=== PATIENT | male | born 1945 | race Caucasian/White ===

== ENCOUNTER 2023-02-07 07:31 | Emergency (ER) | payer MEDICARE, SELFPAY ==
[2023-02-07 07:36] VITALS: BP 161/91; PULSE 61; RESP 16; TEMP 36.4; O2SAT 99; BMI 23.0
--- NOTE | 2023-02-07 07:46 | ED.UPPEXIN1 ---
HPI - Extremity Injury (Upper) General Chief Complaint: Extremity Injury, Upper Stated Complaint: UPPER EXTREMITY INJURY LEFT HAND Time Seen by Provider: 02/07/23 07:42 Source: patient and family Mode of arrival: walk-in Limitations: physical limitation History of Present Illness HPI narrative: Is presenting with a left hand swelling and pain that started this morning. With no history of any injury although he was carrying some heavy objects yesterday No fever no chills no other concerns Related Data Home Medications Medication Instructions Recorded Confirmed carbidopa 25 mg-levodopa 100 mg 1.5 tab PO .4 times per day 02/07/23 02/07/23 tablet glipizide 5 mg tablet 5 mg PO DAILY 02/07/23 02/07/23 meloxicam 7.5 mg tablet 7.5 mg PO DAILY 02/07/23 02/07/23 metformin 500 mg tablet,extended 500 mg PO BID 02/07/23 02/07/23 release 24 hr metoprolol succinate 50 mg 50 mg PO DAILY 02/07/23 02/07/23 tablet,extended release 24 hr ramipril 1.25 mg capsule 1.25 mg PO DAILY 02/07/23 02/07/23 rasagiline 1 mg tablet 1 mg PO DAILY 02/07/23 02/07/23 simvastatin 40 mg tablet 40 mg PO .QHS 02/07/23 02/07/23 Previous Rx's Medication Instructions Recorded cephalexin 500 mg capsule 500 mg PO Q8H 5 days #15 caps 02/07/23 Allergies Allergy/AdvReac Type Severity Reaction Status Date / Time No Known Drug Allergies Allergy Verified 02/07/23 07:38 Review of Systems ROS Status of ROS 10 or more systems reviewed and unremarkable except as noted in history and below PFSH PFS Social History Smoking status: Never smoker Exam Narrative Exam Narrative: Nurses notes and vital signs reviewed and patient is not hypoxic. General: Well-appearing and in no apparent distress. Skin: Warm, dry, no pallor noted. No rash. Head: Normocephalic, atraumatic. Neck: Supple, non-tender. Eye: Pupils are equal, round and EOMI. No scleral icterus. Ears, Nose, Mouth, and Throat: TM are clear, no nasal mucosal hypertrophy. Oral mucosa is moist, no posterior oropharynx erythema, uvula is mid-line Cardiovascular: Regular Rate and Rhythm without murmur, gallop or rub. Respiratory: No accessory muscle use or respiratory distress. Lungs are clear to auscultation, no wheezing, rales or rhonchi Chest Wall: no tenderness Back: No midline thoracic or lumbar vertebral tenderness. No CVA tenderness Musculoskeletal: normal ROM, no calf or popliteal tenderness, no lower extremity edema/swelling,Left hand swelling noted on the dorsum with an area extending between the 1st 2nd and 3rd with a couple small scratches at the top , no fluctuation or abscess, there is ecchymosis there is no hotness GI: Abdomen is soft, non-distended. Normal bowel sounds. No masses appreciated. No tenderness to palpation. No rebound, guarding, or rigidity noted. Neurological: A&O x4. No cranial nerve dysfunction observed. No truncal ataxia. Moves all extremities. Sensation intact. Psychiatric: Cooperative and interactive. Normal mood and affect. Constitutional Vital Signs, click to edit/add: Last Vital Signs Temp 97.5 F L 02/07/23 07:36 Pulse 66 02/07/23 07:55 Resp 16 02/07/23 07:36 BP 161/91 H 02/07/23 07:36 Pulse Ox 99 02/07/23 07:36 O2 Del Method Room Air 02/07/23 07:36 Course Vital Signs Vital signs: Vital Signs Temperature 97.5 F L 02/07/23 07:36 Pulse Rate 61 02/07/23 07:36 Respiratory Rate 16 02/07/23 07:36 Blood Pressure 161/91 H 02/07/23 07:36 Pulse Oximetry 99 02/07/23 07:36 Oxygen Delivery Method Room Air 02/07/23 07:36 Temperature 97.5 F L 02/07/23 07:36 Pulse Rate 66 02/07/23 07:55 Respiratory Rate 16 02/07/23 07:36 Blood Pressure 161/91 H 02/07/23 07:36 Pulse Oximetry 99 02/07/23 07:36 Oxygen Delivery Method Room Air 02/07/23 07:36 MDM - Extremity Injury (Upper) MDM Narrative Medical decision making narrative: xray of the patient left hand showed no acute pathology regarding the bone but the patient have swelling of the soft tissue pt presentation could be secondary to cellulitis he'll be treated with Keflex as well as Toby wrap and monitoring his symptoms The patient is to followup with primary care physician in next 2-3 days or to return to the emergency department should any of the signs or symptoms worsen or new symptoms develop. The patient agrees with the following Diagnosis and Treatment plan and the patient will be discharged home. Discharge Plan Discharge Chief Complaint: Extremity Injury, Upper Clinical Impression: Cellulitis of hand Patient Disposition: Home, Self-Care Time of Disposition Decision: 08:55 Condition: Good Prescriptions / Home Meds: New cephalexin 500 mg capsule 500 mg PO Q8H 5 Days Qty: 15 0RF No Action carbidopa-levodopa 25-100 mg tablet 1.5 tab PO .4 times per day glipizide 5 mg tablet 5 mg PO DAILY meloxicam 7.5 mg tablet 7.5 mg PO DAILY metformin 500 mg tablet extended release 24 hr 500 mg PO BID metoprolol succinate 50 mg tablet extended release 24 hr 50 mg PO DAILY ramipril 1.25 mg capsule 1.25 mg PO DAILY rasagiline 1 mg tablet 1 mg PO DAILY simvastatin 40 mg tablet 40 mg PO .QHS Instructions: Cellulitis (ED) Additional Instructions: toby wrap applied to the left hand , elevation and rest Stand Alone Forms: Portal Instructions Referrals: Nathan Hartman MD [Primary Care Provider] - 1 week Discharge Date/Time: 02/07/23 09:06
[2023-02-07 07:55] VITALS: PULSE 66
[2023-02-07] MEDS: ACETAMINOPHEN 325 MG TABLET 650 MG PO (08:03)
--- NOTE | 2023-02-07 08:03 | XR_ITS ---
The [address] [address] Patient Name: TASHA NEWBERRY MRN: [id number] date: 1945 Sex: M Assigned Patient Location: ER Current Patient Location: ED.MAIN Accession/Order Number: [id number] Exam Date: 02/07/2023 07:55 Report Date: 02/07/2023 08:10 At the request of: CONNIE BERMUDEZ Procedure: XR hand LT min 3V PROCEDURE: XR hand LT min 3V HISTORY: swelling , acute left and bruising; no known injury COMPARISON: None. FINDINGS: BONES:Mild degenerative changes of the first carpal-metacarpal joint and the distal interphalangeal joints of the second third digits. No fracture, dislocation, bone lesion. SOFT TISSUES:Mild dorsal soft tissue swelling. No radiopaque foreign body. EFFUSION:None visible. OTHER: Negative. XR/XR hand LT min 3V IMPRESSION: 1. No acute or suspicious bone abnormality. Mild degenerative changes. 2. Mild soft tissue swelling; nonspecific. Electronically authenticated by: AYAZ NICOLE Date: 02/07/2023 08:10
== END 2023-02-07 09:06 | disposition home or self-care (01) ==
PROVIDERS: Emergency Provider Emergency Medicine; PCP Family Medicine
DX: L03.114 Cellulitis of left upper limb (principal); Z79.84 Long term (current) use of oral hypoglycemic drugs; Z79.899 Other long term (current) drug therapy
CPT/HCPCS: 73130; 99283

== ENCOUNTER 2023-06-24 08:57 | Outpatient (OUT) | payer MEDICARE, SELFPAY ==
[2023-06-24 10:14] LABS: Estimated Average Glucose 200 mg/dL; Glycohemoglobin A1C 8.6 % (4.5-6.2)
== END 2023-06-24 08:58 | disposition home or self-care (01) ==
LOC: LAB 08:58
PROVIDERS: PCP Family Medicine; Visit Provider Family Medicine
DX: E11.65 Type 2 diabetes mellitus with hyperglycemia (principal)
CPT/HCPCS: 36415; 83036

== ENCOUNTER 2023-07-18 11:55 | Emergency (ER) | payer MEDICARE, SELFPAY ==
[2023-07-18 12:20] VITALS: BP 138/76; PULSE 73; RESP 20; TEMP 36.4; O2SAT 98; BMI 24.1
--- NOTE | 2023-07-18 12:51 | CT_ITS ---
The [address] [address] Patient Name: TASHA NEWBERRY MRN: [id number] date: 1945 Sex: M Assigned Patient Location: ER Current Patient Location: ER Accession/Order Number: [id number] Exam Date: 07/18/2023 13:04 Report Date: 07/18/2023 13:31 At the request of: PRADEEP HOUGH Procedure: CT head/brain wo con EXAM: CT head/brain wo con HISTORY: fall, hit head with abrasion above left eye COMPARISON: CT cervical spine performed contemporaneously reported separately, MR brain 06/27/2016. TECHNIQUE: Axial noncontrast CT imaging of the head was performed with coronal and sagittal reformats. This CT exam was performed using one or more of the following dose reduction techniques: Automated exposure control, adjustment of the MA and/or kV according to patient size, or use of iterative reconstruction technique. FINDINGS: Calvarium/skull base: No substantial soft tissue abnormality is present involving the left paravertebral soft tissues. The known abrasion is not well visualized by CT. No evidence of acute fracture or destructive lesion. Mastoids and middle ears demonstrate no substantial mucosal disease. Bilateral bad river band ocular lens replacements. Paranasal sinuses: No air fluid levels. Brain: No acute intracranial hemorrhage. No acute large vascular territory infarct. No mass lesion or mass effect. No hydrocephalus. CT/CT head/brain wo con IMPRESSION: No acute intracranial process. Electronically authenticated by: ANDREA BARRERA Date: 07/18/2023 13:31
--- NOTE | 2023-07-18 12:51 | XR_ITS ---
The [address] [address] Patient Name: TASHA NEWBERRY MRN: [id number] date: 1945 Sex: M Assigned Patient Location: ER Current Patient Location: ER Accession/Order Number: [id number] Exam Date: 07/18/2023 13:04 Report Date: 07/18/2023 13:50 At the request of: PRADEEP HOUGH Procedure: XR knee LT 3V IMAGES REVIEWED: XR knee LT 3V COMPARISON: 12/20/2021. CLINICAL INDICATION: fall FINDINGS/IMPRESSION: No evidence of acute osseous abnormality of the left knee. No effusion. Minimal degenerative change. Peripheral arterial disease. Electronically authenticated by: ALEX HERNANDEZ Date: 07/18/2023 13:50
--- NOTE | 2023-07-18 12:52 | ED.FALL1 ---
HPI - Fall General Chief Complaint: Fall Stated Complaint: FELL Time Seen by Provider: 07/18/23 12:47 Source: patient Mode of arrival: walk-in Limitations: no limitations History of Present Illness HPI Narrative: [age] old male presents for injury to the left side of his face and his left knee. He fell exercising when he lost his balance. No syncope and he did not lose consciousness. No chest pain shortness breath or abdominal pain. No injury to his arms or right leg. He points to the left anterior knee to indicate area of pain there and he has abrasions at his left eye as well. This just happened before coming into the emergency department. Related Data Home Medications Medication Instructions Recorded Confirmed carbidopa 25 mg-levodopa 100 mg 1.5 tab PO .4 times per day 02/07/23 07/18/23 tablet glipizide 5 mg tablet 5 mg PO DAILY 02/07/23 07/18/23 meloxicam 7.5 mg tablet 7.5 mg PO DAILY 02/07/23 07/18/23 metformin 500 mg tablet,extended 500 mg PO BID 02/07/23 07/18/23 release 24 hr metoprolol succinate 50 mg 25 mg PO DAILY 02/07/23 07/18/23 tablet,extended release 24 hr ramipril 1.25 mg capsule 1.25 mg PO DAILY 02/07/23 07/18/23 rasagiline 1 mg tablet 1 mg PO DAILY 02/07/23 07/18/23 simvastatin 40 mg tablet 40 mg PO .QHS 02/07/23 07/18/23 Previous Rx's Medication Instructions Recorded cephalexin 500 mg capsule 500 mg PO Q8H 5 days #15 caps 02/07/23 Allergies Allergy/AdvReac Type Severity Reaction Status Date / Time No Known Drug Allergies Allergy Verified 07/18/23 12:18 Review of Systems ROS Narrative A ten point review of systems is negative except as noted above. PFSH PFSH Social History Smoking status: Never smoker Exam Narrative Exam Narrative: Nurses note and vital signs reviewed and patient is not hypoxic. General: The patient appears well and in no apparent distress. Patient is resting comfortably on cart. Skin: Warm, dry, no pallor noted. There is no rash noted. Head: Normocephalic, abrasions present just lateral to the left eye Eye: Normal conjunctiva, no drainage Ears, Nose, Mouth, and Throat: oral mucosa is moist. Nares patent. Cardiovascular: not tachycardic Respiratory: Patient is in no distress, no accessory muscle use, lungs are clear to auscultation, no wheezing, rales or rhonchi Back: non-tender GI: nontender Musculoskeletal: left knee has abrasions. No tenderness in the right leg or either arm. Left hip and ankle are nontender Neurological: A&O, normal speech Psychiatric: Cooperative Constitutional Vital Signs, click to edit/add: Last Vital Signs Temp 97.6 F 07/18/23 12:20 Pulse 73 07/18/23 12:20 Resp 20 07/18/23 12:20 BP 138/76 07/18/23 12:20 Pulse Ox 98 07/18/23 12:20 O2 Del Method Room Air 07/18/23 12:20 Course Vital Signs Vital signs: Vital Signs Temperature 97.6 F 07/18/23 12:20 Pulse Rate 73 07/18/23 12:20 Respiratory Rate 20 07/18/23 12:20 Blood Pressure 138/76 07/18/23 12:20 Pulse Oximetry 98 07/18/23 12:20 Oxygen Delivery Method Room Air 07/18/23 12:20 Temperature 97.6 F 07/18/23 12:20 Pulse Rate 73 07/18/23 12:20 Respiratory Rate 20 07/18/23 12:20 Blood Pressure 138/76 07/18/23 12:20 Pulse Oximetry 98 07/18/23 12:20 Oxygen Delivery Method Room Air 07/18/23 12:20 MDM - Fall MDM Narrative Medical decision making narrative: CAT scans and x-rays are all negative and he is able to be discharged home. Findings are discussed with the patient and his . Differential Diagnosis Differential diagnosis: Likely other (fall, intracranial hemorrhage, knee fracture) Imaging Data CT brain, CT C-spine, knee x-ray: Radiologist's impression: Procedure: CT cervical spine wo con EXAM: CT cervical spine wo con HISTORY: fall COMPARISON: None. TECHNIQUE: Contiguous transaxial images obtained from skullbase through cervical spine without administration of intravenous contrast. Coronal and sagittal reformations were obtained. Dose reduction: mA and/or kV are were adjusted by automated exposure control software based upon patients height and weight. FINDINGS: There is no prevertebral soft tissue swelling or acute cervical spine fracture. There is osteopenia. There is multilevel degenerative disc disease of the cervical spine, most pronounced at C5-6. There is minimal retrolisthesis of C3 on C4 and C4 on C5. There is mild levocurvature of the cervical spine. There is multilevel and bilateral uncovertebral joint osteoarthritis, most pronounced from C3-4 through C6-7. There is also multilevel and bilateral facet joint osteoarthritis. Uncovertebral and facet joint osteoarthritis contribute to neural foraminal narrowing that is most pronounced on the right at C4-5 and bilaterally at C5-6. 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 There are several small radiolucent foci within the C4 and C5 vertebral bodies, nonspecific. There is mild carotid artery atherosclerosis. IMPRESSION: 1. No acute cervical spine fracture. 2. Multilevel degenerative disc disease of the cervical spine that is most pronounced at C5-6 as described. 3. Osteopenia. Additionally, there are several small radiolucent foci within the C4 and C5 vertebral bodies, nonspecific. They may be related to degenerative disc disease (including endplate cysts) or patient's underlying osteopenia. However, other etiologies cannot be entirely excluded given patient's age. Correlate with patient history. 4. Mild carotid artery atherosclerosis. Electronically authenticated by: YOBANY MARTIN Date: 07/18/2023 13:46 Procedure: CT head/brain wo con EXAM: CT head/brain wo con HISTORY: fall, hit head with abrasion above left eye COMPARISON: CT cervical spine performed contemporaneously reported separately, MR brain 06/27/2016. TECHNIQUE: Axial noncontrast CT imaging of the head was performed with coronal and sagittal reformats. This CT exam was performed using one or more of the following dose reduction techniques: Automated exposure control, adjustment of the MA and/or kV according to patient size, or use of iterative reconstruction technique. FINDINGS: Calvarium/skull base: No substantial soft tissue abnormality is present involving the left paravertebral soft tissues. The known abrasion is not well visualized by CT. No evidence of acute fracture or destructive lesion. Mastoids and middle ears demonstrate no substantial mucosal disease. Bilateral andreafski ocular lens replacements. Paranasal sinuses: No air fluid levels. Brain: No acute intracranial hemorrhage. No acute large vascular territory infarct. No mass lesion or mass effect. No hydrocephalus. IMPRESSION: No acute intracranial process. Electronically authenticated by: ANDREA BARRERA Procedure: CT cervical spine wo con EXAM: CT cervical spine wo con HISTORY: fall COMPARISON: None. TECHNIQUE: Contiguous transaxial images obtained from skullbase through cervical spine without administration of intravenous contrast. Coronal and sagittal reformations were obtained. Dose reduction: mA and/or kV are were adjusted by automated exposure control software based upon patients height and weight. FINDINGS: There is no prevertebral soft tissue swelling or acute cervical spine fracture. There is osteopenia. There is multilevel degenerative disc disease of the cervical spine, most pronounced at C5-6. There is minimal retrolisthesis of C3 on C4 and C4 on C5. There is mild levocurvature of the cervical spine. There is multilevel and bilateral uncovertebral joint osteoarthritis, most pronounced from C3-4 through C6-7. There is also multilevel and bilateral facet joint osteoarthritis. Uncovertebral and facet joint osteoarthritis contribute to neural foraminal narrowing that is most pronounced on the right at C4-5 and bilaterally at C5-6. 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 There are several small radiolucent foci within the C4 and C5 vertebral bodies, nonspecific. There is mild carotid artery atherosclerosis. IMPRESSION: 1. No acute cervical spine fracture. 2. Multilevel degenerative disc disease of the cervical spine that is most pronounced at C5-6 as described. 3. Osteopenia. Additionally, there are several small radiolucent foci within the C4 and C5 vertebral bodies, nonspecific. They may be related to degenerative disc disease (including endplate cysts) or patient's underlying osteopenia. However, other etiologies cannot be entirely excluded given patient's age. Correlate with patient history. 4. Mild carotid artery atherosclerosis. Electronically authenticated by: YOBANY MARTIN Date: 07/18/2023 13:46 Discharge Plan Discharge Chief Complaint: Fall Clinical Impression: Fall Patient Disposition: Home, Self-Care Time of Disposition Decision: 14:01 Condition: Good Mode of Transportation: Private Vehicle Prescriptions / Home Meds: No Action carbidopa-levodopa 25-100 mg tablet 1.5 tab PO .4 times per day glipizide 5 mg tablet 5 mg PO DAILY meloxicam 7.5 mg tablet 7.5 mg PO DAILY metformin 500 mg tablet extended release 24 hr 500 mg PO BID metoprolol succinate 50 mg tablet extended release 24 hr 25 mg PO DAILY ramipril 1.25 mg capsule 1.25 mg PO DAILY rasagiline 1 mg tablet 1 mg PO DAILY simvastatin 40 mg tablet 40 mg PO .QHS cephalexin 500 mg capsule 500 mg PO Q8H 5 Days Qty: 15 0RF Instructions: Fall Prevention for Older Adults (ED) Stand Alone Forms: Portal Instructions Referrals: Nathan Hartman MD [Primary Care Provider] - 1 week
== END 2023-07-18 14:20 | disposition home or self-care (01) ==
PROVIDERS: Emergency Provider Emergency Medicine; PCP Family Medicine
DX: Z04.3 Encounter for examination and observation following other accident (principal); S09.93XA Unspecified injury of face, initial encounter; S89.92XA Unspecified injury of left lower leg, initial encounter; W19.XXXA Unspecified fall, initial encounter; Z79.84 Long term (current) use of oral hypoglycemic drugs; M50.322 Other cervical disc degeneration at C5-C6 level; M85.88 Other specified disorders of bone density and structure, other site
CPT/HCPCS: 70450; 72125; 73562; 99284

== ENCOUNTER 2023-09-13 09:05 | Outpatient (OUT) | payer MEDICARE, SELFPAY ==
--- NOTE | 2023-09-13 09:11 | US_ITS ---
The [address] [address] Patient Name: TASHA NEWBERRY MRN: [id number] date: 1945 Sex: M Assigned Patient Location: US Current Patient Location: US Accession/Order Number: [id number] Exam Date: 09/13/2023 09:12 Report Date: 09/13/2023 10:05 At the request of: LAINE BOLTON Procedure: US right upper quadrant EXAM: US right upper quadrant HISTORY: . epigastric abdominal pain R10.13 . COMPARISON: None. TECHNIQUE: Grayscale and color imaging was performed FINDINGS: The pancreas appears normal. Scanning of the liver demonstrates a liver to be normal in size. There is mild increased echogenicity of liver. Color-flow is noted in the portal and hepatic veins. Common bile duct measures 2 mm. The gallbladder appears normal with no stones or sludge identified. Right kidney measures 10.2 x 6.6 x 5.7 cm. There is a 7 mm nonobstructing calculus involving the midpole of the right kidney. No solid renal cortical masses or hydronephrosis is noted. No fluid is noted in the right upper quadrant. US/US right upper quadrant IMPRESSION: 1. Slight increased echogenicity of liver consistent with fatty infiltration of the liver. 2. 7 mm nonobstructing right renal calculus. No hydronephrosis. 3. The remainder the right upper quadrant was unremarkable. Electronically authenticated by: NANO ROONEY Date: 09/13/2023 10:05
--- NOTE | 2023-09-13 09:16 | FL_ITS ---
The [address] [address] Patient Name: TASHA NEWBERRY MRN: [id number] date: 1945 Sex: M Assigned Patient Location: US Current Patient Location: US Accession/Order Number: [id number] Exam Date: 09/13/2023 09:45 Report Date: 09/13/2023 11:01 At the request of: LAINE BOLTON Procedure: FL upper GI w air PROCEDURE: FL upper GI w air, FL cineradiography COMPARISON: None. HISTORY: Epigastric Abdominal Pain R10.13 TECHNIQUE: An air contrast upper gastrointestinal series was performed in the usual manner. Standard level fluoroscopic mode of operation utilized. FINDINGS: ESOPHAGUS: Trace amount gastroesophageal reflux. Mild tertiary waves and decreased peristalsis. No visible obstruction, dilatation, or hernia STOMACH: No obstruction, mass, or ulceration. Normal motility. DUODENUM:No ulceration or diverticulum. OTHER: Negative. FL/FL upper GI w air IMPRESSION: 1. Mild decreased peristalsis and tertiary waves of the esophagus; likely age related. 2. Trace amount of gastroesophageal reflux. 3. Unremarkable stomach. Electronically authenticated by: AYAZ NICOLE Date: 09/13/2023 11:01
--- NOTE | 2023-09-13 09:16 | FL_ITS ---
The [address] [address] Patient Name: TASHA NEWBERRY MRN: [id number] date: 1945 Sex: M Assigned Patient Location: US Current Patient Location: US Accession/Order Number: [id number] Exam Date: 09/13/2023 09:45 Report Date: 09/13/2023 11:01 At the request of: LAINE BOLTON Procedure: FL cineradiography PROCEDURE: FL upper GI w air, FL cineradiography COMPARISON: None. HISTORY: Epigastric Abdominal Pain R10.13 TECHNIQUE: An air contrast upper gastrointestinal series was performed in the usual manner. Standard level fluoroscopic mode of operation utilized. FINDINGS: ESOPHAGUS: Trace amount gastroesophageal reflux. Mild tertiary waves and decreased peristalsis. No visible obstruction, dilatation, or hernia STOMACH: No obstruction, mass, or ulceration. Normal motility. DUODENUM:No ulceration or diverticulum. OTHER: Negative. FL/FL cineradiography IMPRESSION: 1. Mild decreased peristalsis and tertiary waves of the esophagus; likely age related. 2. Trace amount of gastroesophageal reflux. 3. Unremarkable stomach. Electronically authenticated by: AYAZ NICOLE Date: 09/13/2023 11:01
--- OUTSIDE RECORDS SUMMARY | 2023-09-13 09:17 | XMS_ITS | CCD ---
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 Name Role Phone Nathan Bolton Primary Care Provider DONALD ALBERTS Referring Unavailable NATHAN BOLTON Primary Care Unavailable Nathan Bolton Primary Care Provider CASANDRA ., DR NIKHIL Ross Admitting Unavailable GUAJARDO ., DR NIKHIL Ross Attending Unavailable REY .DANIEL Consulting Unavailable NADERER, DR NATHAN Alonso Primary Care Unavailable GUAJARDO ., DR NIKHIL Ross Admitting Unavailable GUAJARDO ., DR NIKHIL Ross Consulting Unavailable GUAJARDO ., DR NIKHIL Ross Attending Unavailable NADEREGideon, DR NATHAN Alonso Primary Care Unavailable NICA HOUSE Consulting Unavailable GUAJARDO ., DR NIKHIL Ross Admitting Unavailable GUAJARDO ., DR NIKHIL Ross Consulting Unavailable NADROBERTA, DR NATHAN Alonso Primary Care Unavailable GUAJARDO ., DR NIKHIL Ross Attending Unavailable SANIYA GARZON Consulting Unavailable SANIYA GARZON Attending Unavailable NADROBERTA, DR NATHAN Alonso Primary Care Unavailable SANIYA GARZON Admitting Unavailable SANIYA GARZON Consulting Unavailable SANIYA GARZON Attending Unavailable SANIYA GARZON Admitting Unavailable NADROBERTA, DR NATHAN Alonso Primary Care Unavailable MISC, DR NOBLE Admitting Unavailable MISC, DR NOBLE Attending Unavailable NADROBERTA, DR NATHAN Alonso Primary Care Unavailable GUAJARDO ., DR NIKHIL Ross Admitting Unavailable GUAJARDO ., DR NIKHIL Ross Consulting Unavailable GUAJARDO ., DR NIKHIL Ross Attending Unavailable HOANG, DR NATHAN Alonso Primary Care Unavailable HOANG, DR NATHAN Alonso Primary Care Unavailable HOANG, DR NATHAN Alonso Consulting Unavailable NADEREGideon, DR NATHAN Alonso Attending Unavailable NADERER, DR NATHAN Alonso Admitting Unavailable HOANG, DR NATHAN Alonso Consulting Unavailable HOANG, DR NATHAN Alonso Attending Unavailable HOANG, DR NATHAN Alonso Admitting Unavailable HOANG, DR NATHAN Alonso Primary Care Unavailable [facility], DR NOBLE Attending Unavailable ALISE, DR NOBLE Admitting Unavailable HOANG, DR NATHAN Alonso Primary Care Unavailable SADAF ., JOANNE Attending Unavailable SADAF ., JOANNE Admitting Unavailable BONNIE, DR AYAZ Meneses Consulting Unavailable HOANG, DR NATHAN Alonso Primary Care Unavailable SADAF ., JOANNE Consulting Unavailable DONALD ALBERTS Attending Unavailable NATHAN BOLTON Primary Care Unavailable HERIBERTO ALBERTSAL Chanda Referring Unavailable DONALD ALBERTS Attending Unavailable NATHAN BOLTON Primary Care Unavailable Nathan Bolton MD Primary Care Provider AYAZ SANTO Attending Unavailable NATHAN BOLTON Attending Unavailable Medications Current Medications Medication Drug Class(es) Dates Sig (Normalized) Sig (Original) 8 hr acetaminophen 650 mg extended release oral tablet (3 sources) take 1 tablet by mouth every eight hours as needed for pain acetaminophen (Tylenol 8 Hour) 650 MG ER tablet Take 650 mg by mouth every 8 (eight) hours if needed for mild pain. Do not crush, chew, or split. 0 Active aspirin 81 mg delayed release oral tablet (10 sources) Platelet Aggregation Inhibitor, Nonsteroidal Anti-inflammatory Drug take 1 tablet by mouth in the morning aspirin 81 MG EC tablet Take 81 mg by mouth in the morning. 0 Active Comment on above: Take 81 mg by mouth once daily. carbidopa 25 mg / levodopa 100 mg oral tablet (12 sources) Aromatic Amino Acid Decarboxylation Inhibitor, Aromatic Amino Acid Start: 12-05-2022 End: 02-20-2024 take 1.5 tablets by mouth four times daily carbidopa-levodopa (SINEMET) 25-100 mg per tablet Indications: PD (Parkinson's disease) (HCC) Take 1.5 tablets by mouth four times daily. 540 tablet 3 02/20/2023 02/20/2024 Active Start: 02-19-2022 End: 03-09-2023 take 1.5 tablets by mouth three times daily carbidopa-levodopa (SINEMET) 25-100 mg per tablet Indications: PD (Parkinson's disease) (HCC) Take 1.5 tablets by mouth three times daily. 405 tablet 1 09/10/2022 12/05/2022 Discontinued carbidopa-levodo pa (Parcopa) 25-100 MG disintegrating tablet Take 1 tablet by mouth in the morning and 1 tablet at noon and 1 tablet in the evening and 1 tablet before bedtime. 0 Active Comment on above: Take 1.5 tablets by mouth three times daily. Take 1.5 tablets by mouth four times daily. glipiZIDE 10 mg oral tablet (6 sources) Sulfonylurea Start: 07-01-2023 take 1 tablet by mouth in the morning glipiZIDE (Glucotrol) 10 MG tablet Indications: Type 2 diabetes mellitus with hyperglycemia, without long-term current use of insulin ([facility]) Take 1 tablet (10 mg) by mouth in the morning. 90 tablet 3 07/01/2023 Active take 1 tablet by mouth once katheryn y glipiZIDE (GLUCOTROL XL) 5 mg 24 hr tablet Take 5 mg by mouth once daily. 0 Active Comment on above: Take 5 mg by mouth o nce daily. Magnesium (10 sources) magnesium 250 MG tablet Take by mouth. 0 Active take 1 tablet by mouth once katheryn y Magnesium 250 mg tab Take 250 mg by mouth once daily. 0 Active Comment on above: Take 250 mg by mouth once daily. meloxicam 7.5 mg oral tablet (10 sources) Nonsteroidal Anti-inflammatory Drug Start: 07-16-2023 End: 07-15-2024 take 1 tablet by mouth in the morning meloxicam (Mobic) 7.5 MG tablet Indications: DDD (degenerative disc disease), lumbar Take 1 tablet (7.5 mg) by mouth in the morning. 90 tablet 3 07/16/2023 07/15/2024 Active Start: 03-03-2019 take 1 tablet by esvin th once daily meloxicam (MOBIC) 7.5 mg tablet Take 7.5 mg by mouth once daily. 0 03/03/2019 Active Comment on above: Take 7.5 mg by mouth once daily. Multiple Vitamin (multivitamin) tablet (3 sources) take 1 tablet by mouth in the morning Multiple Vitamin (multivitamin) tablet Take 1 tablet by mouth in the morning. 0 Active omeprazole 40 mg delayed release oral capsule (2 sources) Proton Pump Inhibitor Start: 09-10-2023 take 1 capsule by mouth in the morning omeprazole (PriLOSEC) [address] capsule Indications: Epigastric abdominal pain Take 1 capsule (40 mg) by mouth in the morning and in the evening Do not crush or chew. 60 capsule 2 09/10/2023 Active Start: 09-10-2023 take 1 capsule by mo uth in the morning omeprazole (PriLOSEC) [address] capsule Indications: Epigastric abdominal pain Take 1 capsule (40 mg) by mouth in the morning and in the evening Do not crush or chew. 60 capsule 2 09/10/2023 Active vitamin e 180 mg oral capsule (10 sources) take 1 capsule by mo uth in the morning vitamin E 180 MG (400 UNIT) capsule Take 180 mg by mouth in the morning. 0 Active take 1 capsule by mouth once arcenio ly Vitamin E, dl, acetate, (VITAMIN E) 400 unit capsule Take 400 Units by mouth once daily. 0 Active Comment on above: Take 400 Units by mo uth once daily. Completed/Discontinued Medications Medication Drug Class(es) Dates Sig (Normalized) Sig (Original) atropine sulfate 10 mg/ml ophthalmic solution (1 source) Anticholinergic, Cholinergic Muscarinic Antagonist Start: 03-20-2023 take 1 drop(s) under the tongue once daily as needed atropine 1 % ophthalmic solution Indications: Sialorrhea 1(one) drop sublingual as needed daily for excessive drooling 15 mL 2 03/20/2023 Active Comment on above: 1(one) drop sublingu al as needed daily for excessive drooling 24 hr metFORMIN hydrochloride 500 mg extended release oral tablet (10 sources) Biguanide Start: 03-16-2019 metFORMIN ER (GLUCOPHAGE XR) 500 mg 24 hr tablet 500 mg once daily. 0 03/16/2019 Active metFORMIN, OSM, (Fortamet) 500 MG 24 hr tablet Take 500 mg by mouth in the morning and 500 mg at noon and 500 mg in the evening and 500 mg before bedtime. Do not crush, chew, or split. 2 in the AM, 2 at night. 0 Active Comment on above: 500 mg once daily. 24 hr metoprolol succinate 50 mg extended release oral tablet (10 sources) beta-Adrenergic Feng Start: 02-17-2019 metoprolol succinate ER (TOPROL XL) 50 mg 24 hr tablet 50 mg once daily. 0 02/17/2019 Active take 0.5 tablet by m outh every twenty-four hours metoprolol succinate XL (Toprol-XL) 50 M G 24 hr tablet Take 50 mg by mouth Do not crush or chew. 1/2 tab 0 Active Comment on above: 50 mg once daily. multivit-minerals/FA /lycopene (ONE-A-DAY MEN'S ORAL) (7 sources) multivit-mineral s/F A/lycopene (ONE-A-DAY MEN'S ORAL) Take by mouth once daily. 0 Active Comment on above: Take by mouth once d aily. ramipril 1.25 mg oral capsule (10 sources) Angiotensin Converting Enzyme Inhibitor Start: 02-17-2019 ramipril (ALTACE) 1.25 mg capsule 1.25 mg once daily. 0 02/17/2019 Active Comment on above: 1.25 mg once daily. rasagiline 1 mg oral tablet (11 sources) Monoamine Oxidase Inhibitor Start: 03-06-2023 take 1 tablet by mouth once daily rasagiline (AZILECT) 1 mg tab Take 1 tablet by mouth once daily. 90 tablet 3 03/06/2023 Active Start: 02-19-2022 End: 09-10-2022 take 1 tablet by mouth once daily rasagiline (AZILECT) 1 mg tab Take 1 tablet by mouth once daily. 90 tablet 1 09/10/2022 Active take 2 tablets by mo uth in the morning rasagiline (Azilect) 0.5 MG tablet Take 1 mg by mouth in the morning. 0 Active Comment on above: Take 1 tablet by esvin th once daily. simvastatin 40 mg oral tablet (10 sources) HMG-CoA Reductase Inhibitor Start: 02-17-2019 simvastatin (ZOCOR) 40 mg tablet 40 mg daily at bedtime. 0 02/17/2019 Active Comment on above: 40 mg daily at bedti me. Problems Active Problems Problem Classification Problem Date Documented Date Episodic/Chronic Abdominal pain (4 sources) Epigastric pain; Translations: [Epigastric pain] Onset: 09-10-2023 09-10-2023 Episodic Cataract (8 sources) Age-related nuclear cataract, right eye; Translations: [Age-related nuclear cataract, left eye] Onset: 08-30-2022 Chronic Diabetes mellitus with complications (7 sources) Type 2 diabetes mellitus with hyperglycemia; Translations: [Type 2 diabetes mellitus] Onset: 11-26-2022 Chronic Diabetes mellitus without complication (1 source) Type 2 diabetes mellitus without complications; Translations: [TYPE 2 DM WITHOUT COMPLICATIONS] Onset: 08-31-2022 Chronic Disorders of lipid metabolism (5 sources) Hyperlipidemia, unspecified; Translations: [Pure hypercholesterolemia, unspecified] Onset: 08-31-2022 09-10-2023 Chronic E Codes: Fall (1 source) Unspecified fall, initial encounter; Translations: [UNSPECIFIED FALL INITIAL ENCOUNTER] Onset: 12-15-2022 Episodic Essential hypertension (4 sources) Essential (primary) hypertension; Translations: [Benign essential hypertension] Onset: 11-29-2022 09-10-2023 Chronic Genitourinary symptoms and ill-defined conditions (3 sources) Lefty hematuria; Translations: [Gross hematuria] Onset: 09-10-2023 09-10-2023 Episodic Osteoarthritis (4 sources) Unspecified osteoarthritis, unspecified site; Translations: [Degenerative joint disease involving multiple joints] Onset: 08-31-2022 09-10-2023 Chronic Other acquired deformities (1 source) Other forms of scoliosis, lumbar region; Translations: [OTHER FORMS SCOLIOSIS LUMBAR REGION] Onset: 05-18-2022 Chronic Other aftercare (1 source) Other 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 operator (current) drug therapy; Translations: [OTH RELIABILITY TECHNOLOGIST CURRENT DRUG THERAPY] Onset: 12-15-2022 Episodic Other aftercare (1 source) meterman (current) use of aspirin; Translations: [RELIABILITY TECHNOLOGIST CURRENT USE OF ASPIRIN] Onset: 12-15-2022 Episodic Other aftercare (1 source) meterman (current) use of oral hypoglycemic drugs; Translations: [SHELTER USE ORAL HYPOGLYCEMIC DX] Onset: 12-15-2022 Episodic Other nervous system disorders (1 source) Other chronic pain; Translations: [OTHER CHRONIC PAIN] Onset: 05-23-2022 Chronic Other nervous system disorders (1 source) Dysarthria; Translations: [Dysarthria and anarthria] Episodic Other nervous system disorders (1 source) Dysarthria and anarthria; Translations: [Dysarthria] Onset: 06-20-2022 Episodic Other non-traumatic joint disorders (3 sources) Pain in right shoulder; Translations: [PAIN IN RIGHT SHOULDER] Onset: 12-13-2022 Episodic Other non-traumatic joint disorders (1 source) Pain in right hip; Translations: [PAIN IN RIGHT HIP] Onset: 12-15-2022 Episodic Other screening for suspected conditions (not mental disorders or infectious disease) (3 sources) Raised prostate specific antigen; Translations: [Elevated prostate specific antigen [PSA]] Onset: 09-10-2023 09-10-2023 Episodic Parkinson`s disease (13 sources) Parkinson's disease; Translations: [Parkinson's disease] Onset: 10-07-2019 Chronic Parkinson`s disease (1 source) Parkinson`s disease; Translations: [Parkinson's disease without dyskinesia or fluctuating manifestations] Onset: 10-07-2019 Spondylosis; intervertebral disc disorders; other back problems (8 sources) Spondylosis without myelopathy or radiculopathy, lumbar region; Translations: [Other intervertebral disc degeneration, lumbar region] Onset: 06-27-2022 Chronic Superficial injury; contusion (3 sources) Contusion of right upper arm, initial encounter; Translations: [Abrasion of right forearm, initial encounter] Onset: 06-30-2022 Episodic Unclassified (3 sources) Symptomatic parkinsonism; Translations: [Parkinson disease, symptomatic] Onset: 09-10-2023 09-10-2023 Chronic Unclassified (4 sources) LOW BACK PAIN, UNSPECIFIED; Translations: [LOW BACK PAIN, UNSPECIFIED] Onset: 05-18-2022 Unclassified (1 source) CONTACT W/AND (SUSP) EXPOS COVID-19; Translations: [CONTACT W/AND (SUSP) EXPOS COVID-19] Onset: 05-23-2022 Past or Other Problems Problem Classification Problem Date Documented Da te Episodic/Chronic Diseases of mouth; excluding dental (6 sources) Excessive salivation; Translations: [Disturbances of salivary secretion] Onset: 12-05-2022 Episodic Melanomas of skin (1 source) Personal history of malignant melanoma of skin; Translations: [PERSONAL HX MALIGNANT MELANOMA SKIN] Onset: 08-31-2022 Episodic Other upper respiratory disease (4 sources) Hypophonia; Translations: [Other voice and resonance disorders] Onset: 12-05-2022 Episodic Other upper respiratory disease (1 source) Other voice and resonance disorders; Translations: [Hypophonia] Onset: 12-05-2022 Episodic Residual codes; unclassified (7 sources) H/O: steroid therapy; Translations: [Personal history of systemic steroid therapy] Onset: 10-07-2019 10-07-2019 Episodic Unclassified (1 source) LOW BACK PAIN, UNSPECIFIED; Translations: [LOW BACK PAIN, UNSPECIFIED] Onset: 05-15-2022 Results Test Name Value Interpretation Reference Range Facility [facility] 06-14-2023 CNOV Office Visit (NRESFV) HERRERA MARTINEZ ([id number]) 1945 M Date Time Provider Department 06/14/23 3:00 PM DONALD ALBERTS NRESFV During your visit today, we recorded the following information about you: Pulse Blood pressure Weight Height 72/minute 118/61 76.1 kg 1.778 m Donald Alberts, 06/14/2023 3:34 PM Signed [facility] - FOLLOW UP EVALUATION Nathan Bolton MD [address] [facility] [address] [address] Herrera Martinez is a 77 year old male with a history of PD. He is seen with his . Interval History Since Last Visit: The patient had a swallowing test in late november 2022 - no issues other than more focus on swallowing was made to the patient. He is going to [employer] still. 1 fall in November o/w doing well. The thinks he is doing better overall. He has moved into a new place. The Sinemet is working well. The patient denies dopaminergic medication-related motor complications. The patient denies to peak-dose dyskinesias (levodopa-induced dyskinesias - LID). The patient denies wearing-off dyskinesia. The patient denies dystonia associated with levodopa use. The patient denies any dry mouth from levodopa use. The patient denies levodopa-associated nausea nor dyspepsia. The patient denies on-off phenomena. The amount of off time reported by the patient is minimal. The patient was approved for botulinum toxin (Myobloc) injections but he has been worried about it so he has declined injections. The sleep is good - no issues - awakens twice. Exercises daily (walks, uses exercise bike and goes to PD exercise class). The notes she is needing to help him less. She will need to shave him. Parkinson's Medications Schedule: Medications 8A 1130A 3P 6P Sinemet 25/100 1.5 1.5 1.5 1.5 Azilect 1mg 1 0 0 0 Previous Parkinson's Medications: None In addition, the following Parkinson-associated features were evaluated: Daily activities Difficulties with eatin (none) Difficulties in dressing: Yes (slight) Difficulties with hygiene activities: Yes (slight) Difficulties with handwriting: Yes (moderate) Difficulties with doing hobbies and other activities: Yes (slight) Difficulties turning in bed: Yes (slight) Difficulties getting out of bed, car or chair: Yes (slight) Tremors/Gait/Balance Shaking or tremors: 0 (none) Walking and balance problems: Yes (slight) Gait freezing: Yes (slight) Autonomic/Pain Lightheadeness on standin (none) Urinary problems: Yes (slight) Constipation problems: Yes (slight) Pain and other sensations: Yes (mild) Speech/Swallowing Speech problems: Yes (moderate) Drooling: Yes (mild) Chewing and swallowing problems: Yes (slight) Sleep/Fatigue Problems sleeping at night: Yes (moderate) Daytime sleepiness: Yes (mild) Fatigue: 0 (none) Mood/Behavior/Cognit ion Cognitive impairment: Yes (mild) some modest STM Hallucinations and delusions: No Apathy: No Depression: PQH-9 = 3 usually representing no significant (0-4) depression. Anxiety: JULIO C-7 = 5 usually representing mild (5-9) anxiety. Finally, the following table shows the patient's overall global physical and mental health using the PROMIS scale relative to the previous visit: PROMIS-10 Flowsheet Row Office Visit from 06/14/2023 in Neurology Office Visit from 06/06/2022 in Neurology Global Physical Health T Score 42.3 44.9 Global Mental Health T Score 50.8 48.3 0-10 Standard Pain Scale 3 4 *PROMIS-10 scoring scale: mean = 50, over 50 is above average, under 50 is below average Allergies: ALLERGIES No Known Allergies Current Medications: Current Outpatient Medications Medication Sig carbidopa-levodopa (SINEMET) 25-100 mg per tablet Take 1.5 tablets by mouth four times daily. rasagiline (AZILECT) 1 mg tab Take 1 tablet by mouth once daily. atropine 1 % ophthalmic solution 1(one) drop sublingual as needed daily for excessive drooling glipiZIDE (GLUCOTROL XL) 5 mg 24 hr tablet Take 5 mg by mouth once daily. ONETOUCH ULTRA BLUE TEST STRIP test strip once daily. ONETOUCH ULTRASOFT LANCETS lancets once daily. meloxicam (MOBIC) 7.5 mg tablet Take 7.5 mg by mouth once daily. metFORMIN ER (GLUCOPHAGE XR) 500 mg 24 hr tablet 500 mg once daily. metoprolol succinate ER (TOPROL XL) 50 mg 24 hr tablet 50 mg once daily. ramipril (ALTACE) 1.25 mg capsule 1.25 mg once daily. simvastatin (ZOCOR) 40 mg tablet 40 mg daily at bedtime. Vitamin E, dl, acetate, (VITAMIN E) 400 unit capsule Take 400 Units by mouth once daily. aspirin, enteric coated (ASPIRIN, ENTERIC COATED) 81 mg EC tablet Take 81 mg by mouth once daily. Magnesium 250 mg tab Take 250 mg by mouth once daily. multivit-minerals/FA /lycopene (ONE-A-DAY MEN'S ORAL) Take by mouth once daily. No current facility-administere d medications for this visit. Objective: Vital Signs: BP 118/61 Pulse 72 Ht (more content not included)... [facility] 12-05-2022 [facility] Office Visit (NRESFV) HERRERA MARTINEZ ([id number]) 1945 M Date Time Provider Department 12/05/22 1:30 PM DONALD ALBERTS During your visit today, we recorded the following information about you: Pulse Blood pressure Weight 61/minute 127/72 74.8 kg Donald Alberts DO 12/05/2022 2:18 PM Signed [facility] - FOLLOW UP EVALUATION Donald T Aristeo [address] [facility] [address] Nathan Bolton MD [address] [facility] [address] Herrera Martinez is a 77 year old male with a history of parkinsonism. He is seen with family. Interval History Since Last Visit: He is falling. There is more rsnolxmb-yq-rkah (FOG) - this is the cause of the falls. He has fallen while he is carrying things. Multitasking is a big issue. There were two falls in the post op period following cataract surgery. FOG seems to be worse in the PM. There is drooling at night. The mucous in the back of the throat is the issue. No WEL[employer] EXPL[employer]ION for 6 years. The Sinemet is not working as well. Parkinson's Medications Schedule: Medications 8A 1230P 430P Sinemet 25/100 1.5 1.5 1.5 Azilect 1mg 1 0 0 Previous Parkinson's Medications: None In addition, the following Parkinson-associated features were evaluated: Daily activities Difficulties with eatin (none) Difficulties in dressing: Yes (slight) Difficulties with hygiene activities: Yes (slight) Difficulties with handwriting: Yes (moderate) Difficulties with doing hobbies and other activities: Yes (slight) Difficulties turning in bed: Yes (slight) Difficulties getting out of bed, car or chair: Yes (slight) Tremors/Gait/Balance Shaking or tremors: 0 (none) Walking and balance problems: Yes (slight) Gait freezing: Yes (slight) Autonomic/Pain Lightheadeness on standin (none) Urinary problems: Yes (slight) Constipation problems: 0 (none) Pain and other sensations: Yes (mild) Speech/Swallowing Speech problems: Yes (moderate) Drooling: Yes (mild) Chewing and swallowing problems: Yes (moderate) - See History of Present Illness (HPI) Sleep/Fatigue Problems sleeping at night: Yes (mild) Daytime sleepiness: Yes (slight) Fatigue: Yes (slight) REM sleep behavior disorder: No Finally, the following table shows the patient's overall global physical and mental health using the PROMIS scale relative to the previous visit: PROMIS-10 Flowsheet Row Office Visit from 06/06/2022 in Neurology Office Visit from 09/06/2021 in Neurology Global Physical Health T Score 44.9 50.8 Global Mental Health T Score 48.3 50.8 0-10 Standard Pain Scale 4 4 *PROMIS-10 scoring scale: mean = 50, over 50 is above average, under 50 is below average Allergies: ALLERGIES No Known Allergies Current Medications: Current Outpatient Medications Medication Sig glipiZIDE (GLUCOTROL XL) 5 mg 24 hr tablet Take 5 mg by mouth once daily. rasagiline (AZILECT) 1 mg tab Take 1 tablet by mouth once daily. ONETOUCH ULTRA BLUE TEST STRIP test strip once daily. ONETOUCH ULTRASOFT LANCETS lancets once daily. meloxicam (MOBIC) 7.5 mg tablet Take 7.5 mg by mouth once daily. metFORMIN ER (GLUCOPHAGE XR) 500 mg 24 hr tablet 500 mg once daily. metoprolol succinate ER (TOPROL XL) 50 mg 24 hr tablet 50 mg once daily. ramipril (ALTACE) 1.25 mg capsule 1.25 mg once daily. simvastatin (ZOCOR) 40 mg tablet 40 mg daily at bedtime. Vitamin E, dl, acetate, (VITAMIN E) 400 unit capsule Take 400 Units by mouth once daily. aspirin, enteric coated (ASPIRIN, ENTERIC COATED) 81 mg EC tablet Take 81 mg by mouth once daily. Magnesium 250 mg tab Take 250 mg by mouth once daily. multivit-minerals/FA /lycopene (ONE-A-DAY MEN'S ORAL) Take by mouth once daily. carbidopa-levodopa (SINEMET) 25-100 mg per tablet Take 1.5 tablets by mouth four times daily. No current facility-administere d medications for this visit. Objective: Vital Signs: BP 127/72 Pulse 61 Wt 74.8 kg (165 lb) SpO2 99% BMI 23.01 kg/m? General Medical Examination: General Description of Patient: Well appearing, comfortable Head:normocephalic, atraumatic; There is pooling of saliva in mouth. Neck:No bruits, full range of movement, supple Cardiac: Regular Rate and Rhythm Extremities: No leg edema, pulses intact, no rash or venous stasis changes. Neurological Exam Mental Status Awake and alert. Recent and remote memory are intact. Speech is normal. Language is fluent with no aphasia. Attention and concentration are normal. Fund of knowledge is appropriate for level of education. Cranial Nerves CN II to XII reported as normal . Motor No fasciculations present. Strength is 5/5 throughout all four extremities. No focal weakness appreciated on examination. Sensory Temperature is normal in upper and lower extremities. Vibration is normal in upper and lower extremities. There is no evid (more content not included)... Normal [facility] CBC AUTO DIFFon 11-26-2022 BASO # 0.0 103/ul Normal 0.0-0.1 [facility] [facility] [place] Comment on above: Performed By: #### C BC #### [facility] [address] [place] [address] Dr. Joaquín Rodriguez Basophils/100 WBC (Bld) 0.4 % Normal 0.2-2.0 [facility] Comment on above: Performed By: #### C BC #### [facility] [address] [place] [address] Dr. Joaquín Rodriguez EO # 0.1 103/ul Normal 0.0-0.7 [facility] Comment on above: Performed By: #### C BC #### [facility] [address] [place] [address] Dr. Joaquín Rodriguez Eosinophils/100 WBC (Bld) 2.6 % Normal 0.9-7.0 [facility] Comment on above: Performed By: #### C BC #### [facility] [address] [place] [address] Dr. Joaquín Rodriguez Erythrocyte distribution width (RBC) [Ratio] 13.2 % Normal 11.0-15.0 [facility] Comment on above: Performed By: #### C BC #### [facility] [address] [place] [address] Dr. Joaquín Rodriguez Hematocrit (Bld) [Volume fraction] 47.0 % Normal 42.0-54.0 [facility] Comment on above: Performed By: #### C BC #### [facility] [address] [place] [address] Dr. Joaquín Rodriguez Hemoglobin (Bld) [Mass/Vol] 15.9 g/dL Normal 14.0-18.0 [facility] Comment on above: Performed By: #### C BC #### [facility] [address] [place] [address] Dr. Joaquín Rodriguez IG # 0.01 10e3/ul Normal 0.00-0.03 [facility] Comment on above: Performed By: #### C BC #### [facility] [address] [place] [address] Dr. Joaquín Rodriguez IG % 0.2 % Normal 0.0-0.5 [facility] Comment on above: Performed By: #### C BC #### [facility] [address] [place] [address] Dr. Joaquín Rodriguez LYMPH # 1.5 103/ul Normal 1.2-3.8 [facility] Comment on above: Performed By: #### C BC #### [facility] [address] [place] [address] Dr. Joaquín Rodriguez Lymphocytes/100 WBC (Bld) 30.0 % Normal 20.5-60.0 [facility] Comment on above: Performed By: #### C BC #### [facility] [address] [place] [address] Dr. Joaquín Rodriguez MANUAL DIFF REQ NO Normal [facility] Comment on above: Performed By: #### C BC #### [facility] [address] [place] [address] Dr. Joaquín Rodriguez MCH (RBC) [Entitic mass] 30.8 pg Normal 25.9-34.0 [facility] Comment on above: Performed By: #### C BC #### [facility] [address] [place] [address] Dr. Joaquín Rodriguez MCHC (RBC) [Mass/Vol] 33.8 g/dL Normal 29.9-35.2 [facility] Comment on above: Performed By: #### C BC #### [facility] [address] [place] [address] Dr. Joaquín Rodriguez MCV (RBC) [Entitic vol] 90.9 fL Normal 80.0-94.0 [facility] Comment on above: Performed By: #### C BC #### [facility] [address] [place] [address] Dr. Joaquín Rodriguez MONO # 0.4 103/ul Normal 0.3-0.8 [facility] Comment on above: Performed By: #### C BC #### [facility] [address] [address] [address] Joaquín Rodriguez Monocytes/100 WBC (Bld) 7.5 % Normal 1.7-12.0 [facility] Comment on above: Performed By: #### C BC #### [facility] [address] [place] [address] Dr. Joaquín Rodriguez NEUT # 3.0 103/ul Normal 1.4-6.5 [facility] Comment on above: Performed By: #### C BC #### [facility] [address] [place] [address] Dr. Joaquín Rodriguez Neutrophils/100 WBC (Bld) 59.3 % Normal 43.0-75.0 [facility] Comment on above: Performed By: #### C BC #### [facility] [address] [place] [address] Dr. Joaquín Rodriguez Platelet mean volume (Bld) [Entitic vol] 11.2 fL Normal 9.5-13.5 [facility] Comment on above: Performed By: #### C BC #### [facility] [address] [place] [address] Dr. Joaquín Rodriguez PLT 128 103/ul Critically low 150-450 [facility] Comment on above: Performed By: #### C BC #### [facility] [address] [place] [address] Dr. Joaquín Rodriguez RBC 5.17 106/ul Normal 4.70-6.10 [facility] Comment on above: Performed By: #### C BC #### [facility] [address] [place] [address] Dr. Joaquín Rodriguez WBC 5.1 103/ul Normal 4.0-11.0 [facility] Comment on above: Performed By: #### C BC #### [facility] [address] [place] [address] Dr. Joaquín Rodriguez GLYCOHEMOGLOBIN A1Con 2022 ADA RECOMMENDATION SEE BELOW Normal [facility] Comment on above: Result Comment: ADA RECOMMENDED LIMIT 4.0 - 6.0 ADA THERAPEUTIC TARGET < 7.0 ACTION SUGGESTED > 7.0 Performed By: #### A 1C #### [facility] [address] [address] [address] Joaquín Rodriguez Glucose [Mass/Vol] 235 mg/dL Normal [facility] Comment on above: Performed By: #### A 1C #### [facility] [address] [address] [address] Joaquín Rodriguez HbA1c (Bld) [Mass fraction] 9.8 % Critically high 4.5-6.2 [facility] Comment on above: Performed By: #### A 1C #### [facility] [address] [place] [address] Dr. Joaquín Rodriguez LIPID PROFILEon 11-26-2022 CHOL-HDL RATIO NORM SEE BELOW Normal [facility] Comment on above: Result Comment: 3.3 - 4.4 LOW RISK 4.4 - 7.1 AVERAGE RISK 7.1 - 11.0 MODERATE RISK >11.0 HIGH RISK Performed By: #### L IVER, LIPID, BMP ####[facility] [address] [address]Dr. Joaquín Rodriguez Cholesterol [Mass/Vol] 145 mg/dL Normal <=200 Th [facility] Comment on above: Performed By: #### L IVER, LIPID, BMP ####[facility] [address] [id number] Rodriguez Cholesterol in HDL [Mass/Vol] 39 mg/dL Critically low 40-60 [facility] Comment on above: Performed By: #### L IVER, LIPID, BMP ####[facility] [address] [id number] Rodriguez Cholesterol in LDL [Mass/Vol] 70.8 mg/dL Normal [facility] Comment on above: Performed By: #### L IVER, LIPID, BMP ####[facility] [address] [id number]. Joaquín Rodriguez Cholesterol.total/Rukhsana sterol in HDL [Mass ratio] 3.7 {ratio} Normal [facility] Comment on above: Performed By: #### L IVER, LIPID, BMP ####[facility] [address] [address]Dr. Joaquín Rodriguez HDL NORMAL > or = 60 mg/dl - LOW CARDIOVASCULAR RISK <40 mg/dl - HIGH CARDIOVASCULAR RISK Normal [facility] Comment on above: Performed By: #### L IVER, LIPID, BMP ####[facility] [address] [address]Dr. Joaquín Rodriguez LDL CALC NORMAL SEE BELOW Normal [facility] Comment on above: Result Comment: <100 mg/dl OPTIMAL 100 - 129 mg/dl NEAR OR ABOVE OPTIMAL 130 - 159 mg/dl BORDERLINE HIGH 160 - 189 mg/dl HIGH >190 mg/dl VERY HIGH Performed By: #### L IVER, LIPID, BMP ####[facility] [address] [address]Dr. Joaquín Rodriguez Triglyceride [Mass/Vol] 176 mg/dL Critically high <=150 [facility] Comment on above: Performed By: #### L IVER, LIPID, BMP ####[facility] [address] [address]Dr. Joaquín Rodriguez VLDL CALC 35.2 mg/dL Normal [facility] Comment on above: Performed By: #### L IVER, LIPID, BMP ####[facility] [address] [address]Dr. Joaquín Rodriguez LIVER PROFILEon 11-26-2022 Albumin [Mass/Vol] 3.9 g/dL Normal 3.4-5.0 [facility] Comment on above: Performed By: #### L IVER, LIPID, BMP ####[facility] [address] [address]Dr. Joaquín Rodriguez Albumin/Globulin [Mass ratio] 1.0 {ratio} Normal [facility] Comment on above: Performed By: #### L IVER, LIPID, BMP ####[facility] [address] [address]Dr. Joaquín Rodriguez ALP [Catalytic activity/Vol] 91 U/L Normal 46-116 [facility] Comment on above: Performed By: #### L IVER LIPID, BMP ####[facility] [address] [address]Dr. Joaquín Rodriguez ALT [Catalytic activity/Vol] 15 U/L Critically low 16-63 [facility] Comment on above: Performed By: #### L IVER, LIPID, BMP ####[facility] [address] [address]Dr. Joaquín Rodriguez AST [Catalytic activity/Vol] 29 U/L Normal 15-37 [facility] Comment on above: Performed By: #### L IVER, LIPID, BMP ####[facility] [address] [address]Dr. Joaquín Rodriguez BILI, CONJUGATED 0.2 mg/dL Normal 0.0-0.2 [facility] Comment on above: Performed By: #### L IVER, LIPID, BMP ####[facility] [address] [place], [place] [address]Dr. Joaquín Rodriguez Bilirubin [Mass/Vol] 0.7 mg/dL Normal 0.2-1.0 [facility] Comment on above: Performed By: #### L IVER LIPID, BMP ####[facility] [address] [address]Dr. Joaquín Rodriguez Globulin (S) [Mass/Vol] 3.8 g/dL Normal T [facility] Comment on above: Performed By: #### L IVER, LIPID, BMP ####[facility] [address] [address]Dr. Joaquín Rodriguez Protein [Mass/Vol] 7.7 g/dL Normal 6.4-8.2 [facility] Comment on above: Performed By: #### L IVER, LIPID, BMP ####[facility] [address] [address]Dr. Joaquín Rodriguez MICROALBUMIN, RAND URon 05-0 mALB 3.5 mg/L Normal <=30.0 [facility] Comment on above: Performed By: #### M ALBR #### [facility] [address] [place], [place] [address] Dr. Joaquín Rodriguez PROF CHEM 8 (BAS METB)on Anion gap [Moles/Vol] 10.8 mmol/L Normal Th [facility] Comment on above: Performed By: #### L IVER, LIPID, BMP ####[facility] [address] [address]Dr. Joaquín Rodriguez Calcium [Mass/Vol] 9.1 mg/dL Normal 8.5-10.1 [facility] Comment on above: Performed By: #### L IVER, LIPID, BMP ####[facility] [address] [address]Dr. Joaquín Rodriguez Chloride [Moles/Vol] 103 mmol/L Normal 98-107 [facility] Comment on above: Performed By: #### L IVER, LIPID, BMP ####[facility] [address] [address]Dr. Joaquín Rodriguez CO2 [Moles/Vol] 29.7 mmol/L Normal 21.0-32.0 [facility] Comment on above: Performed By: #### L IVER, LIPID, BMP ####[facility] [address] [address]Dr. Joaquín Rodriguez Creatinine [Mass/Vol] 0.97 mg/dL Normal 0.70-1.30 [facility] Comment on above: Performed By: #### L IVER, LIPID, BMP ####[facility] [address] [address]Dr. Joaquín Rodriguez EGFR-AF ICELANDIC >60 Normal >=60 [facility] Comment on above: Performed By: #### L IVER, LIPID, BMP ####[facility] [address] [address]Dr. Joaquín Rodriguez EGFR-NON AF ICELANDIC >60 Normal >=60 [facility] Comment on above: Performed By: #### L IVER, LIPID, BMP ####[facility] [address] [address]Dr. Joaquín Rodriguez Glucose [Mass/Vol] 261 mg/dL Critically high 74-106 T [facility] Comment on above: Performed By: #### L ZENY LIPID, BMP ####[facility] [address] [id number]. Joaquín Rodriguez Potassium [Moles/Vol] 4.5 mmol/L Normal 3.5-5.1 [facility] Comment on above: Performed By: #### L ZENY LIPID, BMP ####[facility] [address] [id number]. Joaquín Rodriguez Sodium [Moles/Vol] 139 mmol/L Normal 136-145 [facility] Comment on above: Performed By: #### L MAURICIO MOURA, BMP ####[facility] [address] [phone]. Joaquín Rodriguez Urea nitrogen [Mass/Vol] 16.0 mg/dL Normal 7.0-18.0 [facility] Comment on above: Performed By: #### L ZENY LIPID, BMP ####[facility] [address] [phone]. Joaquín Rodriguez Urea nitrogen/Creatinine [Mass ratio] 16.5 mg/mg Normal [facility] Comment on above: Performed By: #### L ZENY LIPID, BMP ####[facility] [address] [phone]. Joaquín Michael [facility] HERRERA MARTINEZ ([id number]) 1945 M Date Time Provider Department 06/22/22 DONALD ALBERTS NREUS2 During your visit today, we recorded the following information about you: Dell Dwyer RN 06/22/2022 11:09 AM Signed ----- Message from Juan Patino MD sent at 06/20/2022 2:51 PM EST ----- Regarding: MRI results Suzanne, I am covering for Dr. Alberts today. Please let this patient know that his MRI results came back normal. Thanks, Dr. Sukumar Dwyer RN 06/22/2022 11:10 AM Signed I spoke with Mr. Martinez to inform her MRI for Herrera is normal per Dr. Patino. Allergies As of Date: 06/22/2022 (No Known Allergies) Date Reviewed: 06/06/2022 Reviewed by: eDbby Ortiz MA - Fully Assessed Reason for Visit: Results [95] Cmt: MRI NL Prescriptions as of 06/22/2022 - rasagiline (AZILECT) 1 mg tab Take 1 tablet by mouth once daily. - carbidopa-levodopa (SINEMET) 25-100 mg per tablet Take 1.5 tablets by mouth three times daily. - ONETOUCH ULTRA BLUE TEST STRIP test strip once daily. - ONETOUCH ULTRASOFT LANCETS lancets once daily. - meloxicam (MOBIC) 7.5 mg tablet Take 7.5 mg by mouth once daily. - metFORMIN ER (GLUCOPHAGE XR) 500 mg 24 hr tablet 500 mg once daily. - metoprolol succinate ER (TOPROL XL) 50 mg 24 hr tablet 50 mg once daily. - ramipril (ALTACE) 1.25 mg capsule 1.25 mg once daily. - simvastatin (ZOCOR) 40 mg tablet 40 mg daily at bedtime. - Vitamin E, dl, acetate, (VITAMIN E) 400 unit capsule Take 400 Units by mouth once daily. - aspirin, enteric coated (ASPIRIN, ENTERIC COATED) 81 mg EC tablet Take 81 mg by mouth once daily. - Magnesium 250 mg tab Take 250 mg by mouth once daily. - multivit-minerals/FA /lycopene (ONE-A-DAY MEN'S ORAL) Take by mouth once daily. Problem List As Of Date 06/22/2022 Noted Resolved S/P epidural steroid injection [Z92.241] 10/07/2019 PD (Parkinson's disease) ([facility]) [G20] 10/07/2019 Encounter Status:Closed by DELL DWYER on 06/22/22 Normal [facility] MRI BRAIN WO IVCONon 022 MRI BRAIN WO IVCON * * *Final Report* * * DATE OF EXAM: Jun 20 2022 1:26PM LETY 0294 - MRI BRAIN WO IVCON / PROCEDURE REASON: multiple diagnoses * * * * Physician Interpretation * * * * EXAMINATION: MRI BRAIN WO IVCON CLINICAL HISTORY: PD; 2-week onset of dysarthria; gait/balance Does patient need anesthesia or anx iolysis:->No anesthesia or anxiolysis needed TECHNIQUE: Routine noncontrast MRI protocol including diffusion images. MQ: [id number] COMPARISON: Outside hospital brain MRI 06/27/2016. RESULT: Acute Change: There is no evidence of restricted diffusion to suggest an acute infarct. Hemorrhage: There is a punctate focus of susceptibility artifact in the posterior right frontal operculum without corresponding abnormal signal on the other sequences, likely representing nonspecific chronic microhemorrhage. No evidence of prior large parenchymal hemorrhage. Mass Lesion/ Mass Effect: No evidence of an intracranial mass or extra-axial fluid collection. No significant mass effect. Chronic Change: Scattered punctate foci of increased T2 and FLAIR signal are noted in the supratentorial white matter which is a nonspecific finding, but likely represents minimal chronic microvascular ischemia. Parenchyma: No significant volume loss for age. The brain parenchyma is otherwise within normal limits of signal intensity and morphology. Ventricles: Normal caliber and morphology. Skull Base: Hypothalamic and pituitary region are grossly normal. Craniocervical junction is normal. No significant marrow replacement process. Vasculature: Major intracranial arterial structures, and dural venous sinuses show typical flow void, suggesting patency by spin echo criteria. Other: The visualized paranasal sinuses and mastoid air cells are clear. The orbits and extracranial soft tissues are unremarkable. IMPRESSION: No acute findings. No evidence of acute infarction, intracranial hemorrhage or intracranial mass lesion. [employer]: PSCB Transcribe Date/Time: Jun 20 2022 1:55P Dictated by : ANTHONY JONES MD This examination was interpreted and the report reviewed and electronically signed by: NATHONY JONES MD on Jun 20 2022 2:02PM EST [id number] CN Normal [facility] POINT OF CARE GLUCOSEon 10-2 Glucose [Mass/Vol] 180 mg/dL Critically high 74-106 T he [facility] Comment on above: Performed By: #### P OCGLUC ####[facility] [address] [place], [place] [address]RqDr. Joaquín Rodriguez Covid-19 PCR ([facility])on 04-29 SARS-CoV-2 (COVID-19) RNA JAS+probe Ql (Unsp spec) Not detected Normal NOT DETECTED [facility] Comment on above: Result Comment: This test is not yet approved or cleared by the [place] FDA. When there are no FDA-approved or cleared tests available, and other criteria are met, FDA can make tests available under an emergency access mechanism called an Emergency Use Authorization (EUA). The EUA for this test is supported by the Recovery Agent of Health and Human Service's (HHS's) declaration that circumstances exist to justify the emergency use of in vitro diagnostics for the detection and/or diagnosis of the virus that causes COVID-19. This EUA will remain in effect (meaning this test can be used) for the duration of the COVID-19 declaration justifying emergency of IVDs, unless it is terminated or revoked by FDA (after which the test may no longer be used). When diagnostic testing is negative, the possibility of a false negative should be considered in the context of a patient's recent exposures and the presence of clinical signs and symptoms consistent with SARS-CoV-2. Performed By: #### C VDTBH #### [facility] [address], [place] [address] Dr. Joaquín Rodriguez GLYCOHEMOGLOBIN A1Con 2021 ADA RECOMMENDATION SEE BELOW Normal [facility] Comment on above: Result Comment: ADA RECOMMENDED LIMIT 4.0 - 6.0 ADA THERAPEUTIC TARGET < 7.0 ACTION SUGGESTED > 7.0 Performed By: #### A 1C #### [facility] [address] [place], [place] [address] Dr. Joaquín Rodriguez Glucose [Mass/Vol] 212 mg/dL Normal [facility] Comment on above: Performed By: #### A 1C #### [facility] [address], [place] [address] Dr. Joaquín Rodriguez HbA1c (Bld) [Mass fraction] 9.0 % Critically high 4.5-6.2 [facility] Comment on above: Performed By: #### A 1C #### [facility] [address] [place], [place] [address] Dr. Joaquín Rodriguez Auth for Release of Medical Recordson 11-21-2020 Auth for Release of Medical Records [id number] #1.00CD:127 Normal [facility] Dermatopathologyon 0 Dermatopathology [facility] [address] [place] [id number] DERMATOPATHOLOGY REPORT Name:HERRERA MARTINEZ [facility]. Rec #. [id number] Location: [facility] Date of Procedure: 03/22/2020 Race: Date Received: 03/23/2020 /Sex: 1945 (Age: 74) / M Date Reported: 03/25/2020 Other: Submitting Physician:CODY STAHL MD, Attending/Copy To/Referring:: THIEN MEDINA DO FINAL DIAGNOSIS SKIN, RIGHT SUPERIOR LATERAL UPPER BACK, EXCISION: MELANOMA IN SITU, INKED MARGINS FREE IN PLANES OF SECTIONS EXAMINED, SEE NOTE. Note: Microscopic examination reveals a specimen that extends into the subcutaneous fat. There is fibrosis of the superficial dermis with flattening of the epidermis. In slides A6 and A7 there is focal proliferation of nested and single atypical melanocytes along the dermal-epidermal junction in the adjacent epidermis. Step sections were performed. Electronically Signed Out by NADER GALO M.D. CANCER SUMMARY REPORT A. SKIN, RIGHT SUPERIOR LATERAL UPPER BACK: Procedure: Re-excision Specimen Laterality: Right Tumor Site: Specify (if known): Right superior lateral upper back Macroscopic Satellite Nodule(s): Not identified Histologic Type: Superficial spreading melanoma Tumor Size: Indeterminate: Not available Maximum Tumor Thickness: Not Applicable Anatomic Level: I (Melanoma in situ) Ulceration: Not identified Peripheral Margins: Peripheral margins uninvolved by melanoma Distance of melanoma from closest peripheral margin: 3.5mm Location(s): Not possible Deep Margins: Distance of melanoma from margin: 14.5mm Specify location(s), if possible: Not possible Mitotic Index: Not Applicable Microsatellitosis: Not identified Lymph-Vascular Invasion: Not identified Perineural Invasion: Not identified Tumor-Infiltrating Lymphocytes: N/A Tumor Regression: Not identified Growth Phase: Radial Lymph Nodes: Lymph nodes are not present in specimen TNM Descriptors: Not applicable Primary Tumor (pT): pT1a: Melanoma <0.8 mm in thickness, no ulceration Additional Pathologic Findings: Other(s): None Electronically Signed Out By NADER GALO MD/[facility] By the signature on this report, the individual or group listed as making the Final Interpretation/Diagn osis certifies that they have reviewed this case. Clinical History: Malignant melanoma. [place]. [place] Specimens Submitted As: A: SKIN, RIGHT SUPERIOR LATERAL UPPER BACK Gross Description: Received in formalin is one lozano-brown piece of skin measuring 56 x 21 x 6 mm. The specimen is inked and embedded in toto in four blocks. The tips are in Block 1. [facility]/03/23/2020 Normal [facility] Comment on above: Performed By: #### D #### Dermatopathology Dermatopathologyon 0 Dermatopathology Pathologist: NADER GALO MD Date of Procedure: 02/10/2020 Date Received: 02/10/2020 Submitting Physician: SAÚL JHAVERI MD Location: [facility] Copy To/Referring/Attendi ng: HENRIK WHALEN DO FINAL DIAGNOSIS 4 SLIDES, [facility], #[id number] (BX: 01/06/2020) SKIN, RIGHT SUPERIOR LATERAL UPPER BACK, SHAVE BIOPSY: MALIGNANT MELANOMA, BRESLOW THICKNESS AT LEAST 0.5 MM, PRESENT ON THE DEEP AND PERIPHERAL MARGIN, SEE NOTE. Note: Microscopic examination reveals a specimen that extends into the superficial dermis. There is an asymmetric proliferation of nested and single atypical melanocytes along the dermal-epidermal junction. The epidermis is flattened in areas and there are increased melanocytes in these areas. The melanocytes have moderately enlarged nuclei with mild to moderate cytoplasm. There is a mild superficial lymphocytic infiltrate with occasional melanocytes. The melanocytes stain with antibodies against [place]-1 and SOX-10. The deep margin focally transects the atypical melanocytes. Electronically Signed Out by NADER GALO M.D. CANCER SUMMARY REPORT A. 4 SLIDES, DERMATOPATHOLOGY LABORATORY [facility], #[id number] (BX: 01/06/2020): Procedure: Biopsy, shave Specimen Laterality: Right Tumor Site: Specify (if known): Right superior lateral upper back Macroscopic Satellite Nodule(s): Not identified Histologic Type: Superficial spreading melanoma Tumor Size: Indeterminate: Not available Maximum Tumor Thickness: At least: 0.5 mm Explanation: Focally transected on the deep margin. Anatomic Level: At least *III (Melanoma fills and expands papillary dermis) Ulceration: Not identified Peripheral Margins: Peripheral margins involved by melanoma in situ Location(s): Not possible Deep Margins: Involved by invasive melanoma Location(s): Not possible Mitotic Index: 0 / sq mm Microsatellitosis: Not identified Lymph-Vascular Invasion: Not identified Perineural Invasion: Not identified Tumor-Infiltrating Lymphocytes: Present, nonbrisk Tumor Regression: Not identified Growth Phase: Vertical Lymph Nodes: Lymph nodes are not present in specimen TNM Descriptors: Not applicable Primary Tumor (pT): pT1a: Melanoma <0.8 mm in thickness, no ulceration Additional Pathologic Findings: Other(s): None Electronically Signed Out By NADER GALO MD/INNA Clinical History: 1CM, NEOPLASM OF UNCERTAIN BEHAVIOR VS. SQUAMOUS CELL CARCINOMA VS. SCAR Specimens Submitted As: A: 4 SLIDES, DERMATOPATHOLOGY LABORATORY [facility], #[id number] (BX: 01/06/2020) Gross Description: Received for consultation from Dermatopathology Laboratory [facility] are four slides labeled [id number] (BX: 01/06/2020) along with the corresponding pathology report. Slide/Block Description 4 SLIDES, [id number]. Keep Slides: N Slides Returned: N Personal Consult: N Normal [facility] Comment on above: Performed By: #### D #### Dermatopathology Vital Signs Date Time Vital Sign Value Performing Clinician Faci lity 09-10-2023 11:47-0500 Body height 180.3 cm Nathan Bolton MD Work Phone: [facility] 09-10-2023 11:47-0500 Body mass index (BMI) [Ratio] 23.01 kg/m2 Nathan Bolton MD Work Phone: [facility] 09-10-2023 11:47-0500 Body temperature 97.5 [degF] Nathan Bolton MD Work Phone: [facility] 09-10-2023 11:47-0500 Body weight 74.84 kg Nathan Bolton MD Work Phone: [facility] 09-10-2023 11:47-0500 Diastolic blood pressure 70 mm[Hg] Nathan Bolton MD Work Phone: [facility] 09-10-2023 11:47-0500 Heart rate 89 /min Nathan Bolton MD Work Phone: [facility] 09-10-2023 11:47-0500 SaO2% (BldA) [Mass fraction] 99 % Nathan Bolton MD Work Phone: [facility] 09-10-2023 11:47-0500 Systolic blood pressure 130 mm[Hg] Nathan Bolton MD Work Phone: [facility] 12-05-2022 13:27-0400 Body weight 74.84 kg Donald Alberts DO Work Phone: [facility] 12-05-2022 13:27-0400 Diastolic blood pressure 72 mm[Hg] Donald Alberts DO Work Phone: [facility] 12-05-2022 13:27-0400 Heart rate 61 /min Donald Alberts DO Work Phone: [facility] 12-05-2022 13:27-0400 SaO2% (BldA) [Mass fraction] 99 % Donald Alberts DO Work Phone: [facility] 12-05-2022 13:27-0400 Systolic blood pressure 127 mm[Hg] Donald Alberts DO Work Phone: [facility] 06-06-2022 16:21-0500 Body height 180.3 cm Donald Alberts DO Work Phone: [facility] 06-06-2022 16:21-0500 Body weight 74.39 kg Donald Mishrabrody DO Work Phone: [facility] 06-06-2022 16:21-0500 Diastolic blood pressure 75 mm[Hg] Donald Aristeo DO Work Phone: [facility] 06-06-2022 16:21-0500 Heart rate 69 /min Donald Aristeo DO Work Phone: [facility] 06-06-2022 16:21-0500 SaO2% (BldA) [Mass fraction] 100 % Donald Mishrabrody DO Work Phone: [facility] 06-06-2022 16:21-0500 Systolic blood pressure 135 mm[Hg] Donald Aristeo DO Work Phone: [facility] Encounters Encounter Date Encounter Type Care Provider Facility Start: 09-10-2023 Husam Bolton MD Work Phone: [facility] Start: 09-10-2023 Husam Bolton MD Work Phone: [facility] Start: 09-10-2023 End: 09-10-2023 ambulatory NATHAN BOLTON Not Available Start: 09-10-2023 End: 09-10-2023 Office outpatient visit 15 minutes Nathan Bolton MD Work Phone: [facility] Comment on above: Epigastric abdominal pain (Primary Dx) Start: 08-22-2023 End: 08-22-2023 ambulatory AYAZ SANTO Not Available Start: 06-14-2023 End: 06-14-2023 ambulatory DONALD ALBERTS Facility:[facility] Start: 03-16-2023 ambulatory Donald T Sonya xavier DO Work Phone: Neurology Comment on above: Botox for excessive saliva for Herrera Martinez Start: 02-19-2023 Refill Donald T Sonya xavier DO Work Phone: Neurology Comment on above: Refill Request Start: 12-26-2022 End: 12-26-[address] DOCTOR NICOLE Facility:[facility] Start: 12-13-2022 End: 12-13-2022 ambulatory JOANNE TALAVERA . Facility:[facility] Start: 12-05-2022 End: 12-05-2022 ambulatory DONALD ALBERTS Facility:[facility] Start: 12-05-2022 End: 12-05-2022 Patient encounter procedure Donald Alberts DO Work Phone: Neurology Comment on above: PD (Parkinson's dise ase) (HCC) (Primary Dx); Sialorrhea; Hypophonia Start: 11-26-2022 End: 11-27-[address] NATHAN BOLTON Facility:[facility] Start: 10-21-2022 ambulatory Donald xavier DO Work Phone: Neurology Comment on above: Herrera Ponce ons patient contraindicated medicines Start: 09-27-2022 End: 09-27-2022 ambulatory SANIYA GARZON Facility:[facility] Start: 09-10-2022 Refill Donald xavier DO Work Phone: [facility] Comment on above: Refill Request Start: 08-30-2022 End: 08-30-2022 ambulatory SANIYA GARZON Facility:[facility] Start: 06-27-2022 End: 06-28-[address] NIKHIL GUAJARDO . Facility:[facility] Start: 06-22-2022 Telephone encounter Donald gomez DO Work Phone: [facility] Comment on above: Results (MRI NL) Start: 06-20-2022 End: 06-20-2022 ambulatory DONALD ALBERTS Facility:[facility] Start: 06-06-2022 End: 06-06-2022 Patient encounter procedure Donald Alberts DO Work Phone: Neurology Comment on above: PD (Parkinson's dise ase) (HCC) (Primary Dx); Dysarthria Start: 05-23-2022 Encounter for preprocedural laboratory examination DR NIKHIL GUAJARDO . [facility] Start: 05-22-2022 End: 05-22-[address] NIKHIL GUAJARDO . Facility:[facility] Start: 05-18-2022 End: 05-19-[address] NIKHIL GUAJARDO . Facility:[facility] Start: 05-18-2022 End: 05-19-2022 Encounter for preprocedural laboratory examination DR NIKHIL GUAJARDO . Facility:[facility] Start: 05-15-2022 End: 05-16-[address] NIKHIL GUAJARDO . Facility:[facility] Start: 05-09-2022 End: 05-10-[address] NATHAN BOLTON Facility:[facility] Plan of Treatment Date Care Activity Detail Author Start: 06-20-2024 DIABETES SCREEN DIABETES SCREEN [facility] Start: 12-05-2023 End: 12-05-2023 Patient encounter procedure 12/05/2023 2:45 PM EDT Procedure Visit [facility] [address] [place] [id number] Ayaz Santo DPJade [address] [place] [address] [facility] Start: 12-02-2023 End: 12-02-2023 Patient encounter procedure 12/02/2023 10:45 AM EDT Office Visit [facility] [address] [place] [address] Nathan Bolton MD [address] [place] [address] [facility] Start: 09-24-2023 Hemoglobin A1c measurement Maritza betes: Hemoglobin A1C [facility] Start: 09-10-2023 End: 09-10-2024 RF Upper gastrointestinal tract and Small bowel Single view W contrast PO FL upper GI double contrast w KUB Imaging Routine Epigastric abdominal pain Expected: 09/10/2023, Expires: 09/10/2024 [facility] Comment on above: Expected: 09/10/2023 , Expires: 09/10/2024 Start: 09-10-2023 End: 09-10-2024 US Gallbladder US gallbladder Imaging Routine Epigastric abdominal pain Expected: 09/10/2023, Expires: 09/10/2024 [facility] Work Phone: Comment on above: Expected: 09/10/2023 , Expires: 09/10/2024 Start: 09-10-2023 End: 09-10-2023 Patient encounter procedure 09/10/2023 11:45 AM EST Office Visit [facility] [address] [place] [phone] Nathan Bolton MD [address] [place] [address] Arrived [facility] Comment on above: Arrived Start: 03-29-2023 Influenza vaccination INFLUENZA (#1) [facility] Start: 08-26-2022 COVID-19 VACCINE (6 - Pfizer series) COVID-19 VACCINE (6 - Pfizer series) [facility] Start: 07-29-2022 ADVANCE DIRECTIVE DISCUSSION ADVANCE DIRECTIVE DISCUSSION [facility] Start: 07-29-2022 DEPRESSION ASSESSMENT DEPRESSION ASS ESSMENT [facility] Start: 07-29-2021 ADVANCE DIRECTIVE DISCUSSION ADVANCE DIRECTIVE DISCUSSION [facility] Start: 07-29-2021 DEPRESSION ASSESSMENT DEPRESSION ASS ESSMENT [facility] Start: 2011 PNEUMOCOCCAL: 65+ (1 - PCV) PNEUMOCOCCAL: 65+ (1 - PCV) [facility] Start: 1996 SHINGRIX VACCINE (1 of 2) FRIAS GRIX VACCINE (1 of 2) [facility] Start: 1991 COLOGUARD (FIT-DNA) COLOGUARD (FIT-D NA) [facility] Start: 1991 Colonoscopy [address] [facility] Start: 1991 COLORECTAL CANCER SCREENING COLORECTAL CANCER SCREENING [facility] Start: [address] COLONOGRAPHY [facility] Start: 1991 FECAL OCCULT BLOOD FECAL OCCULT BLOO D [facility] Start: 1991 [facility] Start: 1981 LIPID SCREEN LIPID SCREEN [facility] Start: 1965 Urine microalbumin profile DTAP,TDAP ,TD (1 - Tdap) [facility] Start: 1965 Urine screening for protein Diabetes: Urine Protein Screening [facility] Start: 1964 HEPATITIS C SCREENING HEPATITIS C SC MANSOORJANET [facility] Start: 1956 Glaucoma screening Diabetes: R etinopathy Screening [facility] Start: 1946 Medicare Annual Well ness (AWV) Medicare Annual Wellness (AWV) [facility] End: 07-06-2023 Mri brain brain stem w/o contrast material MRI BRAIN WO IVCON Radiology Routine PD (Parkinson's disease) (HCC) Dysarthria 1 Occurrences starting 06/06/2022 until 07/06/2023 [facility] Work Phone: Comment on above: 1 Occurrences starti ng 06/06/2022 until 07/06/2023 [facility] Immunizations Immunization Date Immunization Notes Care Provider Fa [facility] 04-22-2023 Influenza, Seasonal, Quadrivalent, Adjuvanted Nathan Bolton MD Work Phone: [facility] 04-23-2022 Influenza, High-dose Seasonal, Quadrivalent, Preservative Free Nathan Bolton MD Work Phone: [facility] 04-27-2021 Influenza, Seasonal, Quadrivalent, Adjuvanted Nathan Bolton MD Work Phone: [facility] 05-05-2020 Influenza, Seasonal, Quadrivalent, Adjuvanted Nathan Bolton MD Work Phone: [facility] 05-18-2019 Influenza, injectabl e, Madin Coco Canine Kidney, preservative free, quadrivalent Nathan Bolton MD Work Phone: [facility] 11-20-2018 zoster vaccine recombinant Jade Bolton MD Work Phone: [facility] 05-13-2018 Seasonal trivalent influenza vaccine, adjuvanted, preservative free Nathan Bolton MD Work Phone: [facility] 02-17-2018 zoster vaccine recombinant Jade Bolton MD Work Phone: [facility] 09-06-2017 pneumococcal polysaccharide vaccine, 23 valent Nathan Bolton MD Work Phone: [facility] 05-27-2017 tetanus and diphther ia toxoids, adsorbed, preservative free, for adult use (5 Lf of tetanus toxoid and 2 Lf of diphtheria toxoid) Nathan Bolton MD Work Phone: [facility] 04-29-2017 influenza, high dose seasonal, preservative-free Nathan Bolton MD Work Phone: [facility] 05-30-2016 influenza, high dose seasonal, preservative-free Nathan Bolton MD Work Phone: [facility] 05-30-2016 pneumococcal conjuga te vaccine, 13 valent Nathan Bolton MD Work Phone: [facility] 06-08-2015 influenza, high dose seasonal, preservative-free Nathan Bolton MD Work Phone: [facility] Payers Date Payer Category Payer Medicare [id number] 1958 Medicare [id number] 1945 Unknown [id number] 2.16.84 [id number] 1945 Unknown [id number] 2.16.84 [id number] 1946 Unknown [id number] 2.16.84 [id number] 1946 Unknown [id number] 2.16.84 [id number] 1946 Unknown [id number] 2.16.84 [id number] 1946 Unknown [id number] 2.16.84 [id number] 1946 Unknown [id number] 2.16.84 [id number] 1946 Unknown [id number] 2.16.84 [id number] 1946 Unknown [id number] 2.16.84 [id number] 1946 Unknown [id number] 2.16.84 [id number] 1946 Unknown [id number] 2.16.84 [id number] 1945 Unknown [id number] 2.16.84 [id number] 1946 Unknown [id number] 2.16.84 [id number] Social History Date Type Detail Facility Start: 03-27-2019 End: 05-08-2023 Tobacco smoking status NHIS Never smoked tobacco [facility] Start: 03-27-2019 End: 05-08-2023 Tobacco use and exposure Smokeless tobacco non-user [facility] Start: 10-14-2020 End: 09-10-2023 Alcohol intake Lifetime non-drinker (finding) [facility] Start: 03-27-2019 History SDOH Alcohol Frequency [address] [facility] Start: 1945 Sex Assigned At Male [facility] Start: 05-27-2022 End: 06-06-2022 Exposure to SARS-CoV-2 (event) Not sure [facility] Start: 12-05-2022 End: 09-09-2023 History of Social function [facility] Start: 12-05-2022 End: 09-09-2023 Tobacco use panel [facility] Adult Depression Screening Assessment [address] [facility] Start: 03-30-2019 Gender identity Identifies as male gender (finding) [facility] How often to you hav e a drink containing alcohol? Never [facility] Within the last year , have you been afraid of your partner or ex-partner? No [facility] Are you now , , , , never or living with a partner? [facility] Do you feel stress - tense, restless, nervous, or anxious, or unable to sleep at night because your mind is troubled all the time - these days [OSQ] Not at all [facility] (I/We) worried wheth er (my/our) food would run out before (I/we) got money to buy more. Never true [facility] Start: 1945 Sex Assigned At Not on file [facility] Medical Equipment Procedure Code Equipment Code Equipment Origin al Text Equipment Identifier Dates once daily. Start: 12-15-2018 Comment on above: once daily. Clinical Notes 05-15-2022 to 09-10-2023 Nathan Bolton MD - 09/10/2023 12:[address] Bolton MD - 09/10/2023 11:45 AM ESTTelephone Encounter - Felice Russo - 02/20/2023 3:00 PM EDTPatient Instructions Note Date & Type Note Facility 09-10-2023 History of Present illness Narrative Associated Problem(s): Epigastric abdominal pain Unclear cause of pain but possible gastritis or ulcer. Start omeprazole BID. Check UGI and US gallbladder. If pain or symptoms worsens go to ER. Subjective Patient ID: Herrera Martinez is a 78 y.o. male who presents for Abdominal Pain (Pain goes from back to stomach). C/o abdominal pain for 2 weeks. Notice abdomen distended and c/o increased bloating. Constant pain and occasional sharp, severe pain. Pain worse first thing in am and in evening when going to bed. Notice if eat pain improves and mild. No nausea and normal appetite. Reports daily BM and goes 2-3 times a day. Occasional epigastric burning and feels acidic. Notice if burp will have burning. Not tried OTC for symptoms. No recent medication change and never had similar symptoms in the past. Review of Systems Constitutional: Negative for fatigue. Respiratory: Negative for cough, shortness of breath and wheezing. Cardiovascular: Negative for chest pain and palpitations. Gastrointestinal: Negative for abdominal pain, diarrhea, nausea and vomiting. Genitourinary: Negative for dysuria. Objective Physical Exam Constitutional: General: He is not in acute distress. Appearance: Normal appearance. HENT: Head: Normocephalic. Right Ear: Tympanic membrane and ear canal normal. Left Ear: Tympanic membrane and ear canal normal. Eyes: Extraocular Movements: Extraocular movements intact. Pupils: Pupils are equal, round, and reactive to light. Cardiovascular: Rate and Rhythm: Normal rate and regular rhythm. Heart sounds: No murmur heard. No friction rub. No gallop. Pulmonary: Breath sounds: Normal breath sounds. No wheezing, rhonchi or rales. Abdominal: General: Bowel sounds are normal. There is no distension. Palpations: Abdomen is soft. Tenderness: There is no abdominal tenderness. There is no guarding or rebound. Musculoskeletal: Left lower leg: No edema. Neurological: Mental Status: He is alert. Assessment/Plan Problem List Items Addressed This Visit Epigastric abdominal pain - Primary Unclear cause of pain but possible gastritis or ulcer. Start omeprazole BID. Check UGI and US gallbladder. If pain or symptoms worsens go to ER. Relevant Medications omeprazole (PriLOSEC) [address] capsule Other Relevant Orders US gallbladder FL upper GI double contrast w KUB documented in this encounter [facility] 06-14-2023 Note HNO ID: [id number] Author: Donald Alberts, DO Service: ? Author Type: Physician Type: Progress Notes Filed: 06/14/2023 3:34 PM Note Text: [facility] - FOLLOW UP EVALUATION Nathan Bolton MD [address] [facility] [address] Herrera Martinez is a 77 year old male with a history of PD. He is seen with his . Interval History Since Last Visit: The patient had a swallowing test in late november 2022 - no issues other than more focus on swallowing was made to the patient. He is going to [employer] still. 1 fall in November o/w doing well. The thinks he is doing better overall. He has moved into a new place. The Sinemet is working well. The patient denies dopaminergic medication-related motor complications. The patient denies to peak-dose dyskinesias (levodopa-induced dyskinesias - LID). The patient denies wearing-off dyskinesia. The patient denies dystonia associated with levodopa use. The patient denies any dry mouth from levodopa use. The patient denies levodopa-associated nausea nor dyspepsia. The patient denies on-off phenomena. The amount of off time reported by the patient is minimal. The patient was approved for botulinum toxin (Myobloc) injections but he has been worried about it so he has declined injections. The sleep is good - no issues - awakens twice. Exercises daily (walks, uses exercise bike and goes to PD exercise class). The notes she is needing to help him less. She will need to shave him. Parkinson's Medications Schedule: Medications 8A 1130A 3P 6P Sinemet 25/100 1.5 1.5 1.5 1.5 Azilect 1mg 1 0 0 0 Previous Parkinson's Medications: None In addition, the following Parkinson-associated features were evaluated: Daily activities Difficulties with eatin (none) Difficulties in dressing: Yes (slight) Difficulties with hygiene activities: Yes (slight) Difficulties with handwriting: Yes (moderate) Difficulties with doing hobbies and other activities: Yes (slight) Difficulties turning in bed: Yes (slight) Difficulties getting out of bed, car or chair: Yes (slight) Tremors/Gait/Balance Shaking or tremors: 0 (none) Walking and balance problems: Yes (slight) Gait freezing: Yes (slight) Autonomic/Pain Lightheadeness on standin (none) Urinary problems: Yes (slight) Constipation problems: Yes (slight) Pain and other sensations: Yes (mild) Speech/Swallowing Speech problems: Yes (moderate) Drooling: Yes (mild) Chewing and swallowing problems: Yes (slight) Sleep/Fatigue Problems sleeping at night: Yes (moderate) Daytime sleepiness: Yes (mild) Fatigue: 0 (none) Mood/Behavior/Cognition Cognitive impairment: Yes (mild) some modest STM Hallucinations and delusions: No Apathy: No Depression: PQH-9 = 3 usually representing no significant (0-4) depression. Anxiety: JULIO C-7 = 5 usually representing mild (5-9) anxiety. Finally, the following table shows the patient's overall global physical and mental health using the PROMIS scale relative to the previous visit: PROMIS-10 Flowsheet Row Office Visit from 06/14/2023 in Neurology Office Visit from 06/06/2022 in Neurology Global Physical Health T Score 42.3 44.9 Global Mental Health T Score 50.8 48.3 0-10 Standard Pain Scale 3 4 *PROMIS-10 scoring scale: mean = 50, over 50 is above average, under 50 is below average Allergies: ALLERGIES No Known Allergies Current Medications: Current Outpatient Medications Medication Sig carbidopa-levodopa (SINEMET) 25-100 mg per tablet Take 1.5 tablets by mouth four times daily. rasagiline (AZILECT) 1 mg tab Take 1 tablet by mouth once daily. atropine 1 % ophthalmic solution 1(one) drop sublingual as needed daily for excessive drooling glipiZIDE (GLUCOTROL XL) 5 mg 24 hr tablet Take 5 mg by mouth once daily. ONETOUCH ULTRA BLUE TEST STRIP test strip once daily. ONETOUCH ULTRASOFT LANCETS lancets once daily. meloxicam (MOBIC) 7.5 mg tablet Take 7.5 mg by mouth once daily. metFORMIN ER (GLUCOPHAGE XR) 500 mg 24 hr tablet 500 mg once daily. metoprolol succinate ER (TOPROL XL) 50 mg 24 hr tablet 50 mg once daily. ramipril (ALTACE) 1.25 mg capsule 1.25 mg once daily. simvastatin (ZOCOR) 40 mg tablet 40 mg daily at bedtime. Vitamin E, dl, acetate, (VITAMIN E) 400 unit capsule Take 400 Units by mouth once daily. aspirin, enteric coated (ASPIRIN, ENTERIC COATED) 81 mg EC tablet Take 81 mg by mouth once daily. Magnesium 250 mg tab Take 250 mg by mouth once daily. multivit-minerals/FA/lycopene (ONE-A-DAY MEN'S ORAL) Take by mouth once daily. No current facility-administered medications for this visit. Objective: Vital Signs: BP 118/61 Pulse 72 Ht 177.8 cm (5' 10 ) Wt 76.1 kg (167 lb 12.8 oz) BMI 24.08 kg/m? General Medical Examination: General Description of Patient: Well appearing, comfortable Head:normocephalic, atraumatic Neck:No bruits, full range of movement, supple Cardiac: Regular r (more content not included)... [facility] 02-20-2023 Miscellaneous Notes Last appt 12/05/22 [facility] Requested Prescriptions Pending Prescriptions Disp Refills carbidopa-levodopa (SINEMET) 25-100 mg per tablet 540 tablet 3 Sig: Take 1.5 tablets by mouth four times daily. documented in this encounter [facility] 12-13-2022 Note PROCEDURE: XR HIP RT 2 3V W PELVIS HISTORY: Pain after falling COMPARISON: None. FINDINGS: BONES:No fracture, acute abnormality, or significant arthropathy of the right hip. Scoliotic curvature and degenerative disc disease of the visible lumbar spine. SOFT TISSUES:No visible soft tissue swelling. EFFUSION:None visible. OTHER: Negative. IMPRESSION: 1. No acute bone abnormality or significant degenerative changes of the right hip. 2. Marked degenerative changes of the visible lumbar spine. Electronically authenticated by: AYAZ NICOLE Date: 2022-12-13 09:47 [facility] 12-13-2022 Note PROCEDURE: XR FOREAR M RT 2V, XR HUMERUS RT MIN 2 V HISTORY: Pain after falling COMPARISON: None. FINDINGS: BONES:Narrowing and mild degenerative changes of the acromioclavicular joint and glenohumeral joint. No fracture, dislocation, or bone lesion. Unremarkable forearm. SOFT TISSUES:No visible soft tissue swelling. EFFUSION:None visible. OTHER: Negative. IMPRESSION: 1. No acute bone abnormality. Electronically authenticated by: AYAZ NICOLE Date: 2022-12-13 09:43 [facility] [facility] Note PROCEDURE: XR FOREAR M RT 2V, XR HUMERUS RT MIN 2 V HISTORY: Pain after falling COMPARISON: None. FINDINGS: BONES:Narrowing and mild degenerative changes of the acromioclavicular joint and glenohumeral joint. No fracture, dislocation, or bone lesion. Unremarkable forearm. SOFT TISSUES:No visible soft tissue swelling. EFFUSION:None visible. OTHER: Negative. IMPRESSION: 1. No acute bone abnormality. Electronically authenticated by: AYAZ NICOLE Date: 2022-12-13 09:43 [facility] 12-05-2022 Note HNO ID: [id number] Author: Donald Alberts, DO Service: ? Author Type: Physician Type: Progress Notes Filed: 12/05/2022 2:18 PM Note Text: [facility] - FOLLOW UP EVALUATION Donald T Aristeo [address] [facility] [address] Nathan Bolton MD [address] [facility] [id number] Herrera Martinez is a 77 year old male with a history of parkinsonism. He is seen with family. Interval History Since Last Visit: He is falling. There is more kybgkffp-ih-iphb (FOG) - this is the cause of the falls. He has fallen while he is carrying things. Multitasking is a big issue. There were two falls in the post op period following cataract surgery. FOG seems to be worse in the PM. There is drooling at night. The mucous in the back of the throat is the issue. No WELDER EXPLOSION for 6 years. The Sinemet is not working as well. Parkinson's Medications Schedule: Medications 8A 1230P 430P Sinemet 25/100 1.5 1.5 1.5 Azilect 1mg 1 0 0 Previous Parkinson's Medications: None In addition, the following Parkinson-associated features were evaluated: Daily activities Difficulties with eatin (none) Difficulties in dressing: Yes (slight) Difficulties with hygiene activities: Yes (slight) Difficulties with handwriting: Yes (moderate) Difficulties with doing hobbies and other activities: Yes (slight) Difficulties turning in bed: Yes (slight) Difficulties getting out of bed, car or chair: Yes (slight) Tremors/Gait/Balance Shaking or tremors: 0 (none) Walking and balance problems: Yes (slight) Gait freezing: Yes (slight) Autonomic/Pain Lightheadeness on standin (none) Urinary problems: Yes (slight) Constipation problems: 0 (none) Pain and other sensations: Yes (mild) Speech/Swallowing Speech problems: Yes (moderate) Drooling: Yes (mild) Chewing and swallowing problems: Yes (moderate) - See History of Present Illness (HPI) Sleep/Fatigue Problems sleeping at night: Yes (mild) Daytime sleepiness: Yes (slight) Fatigue: Yes (slight) REM sleep behavior disorder: No Finally, the following table shows the patient's overall global physical and mental health using the PROMIS scale relative to the previous visit: PROMIS-10 Flowsheet Row Office Visit from 06/06/2022 in Neurology Office Visit from 09/06/2021 in Neurology Global Physical Health T Score 44.9 50.8 Global Mental Health T Score 48.3 50.8 0-10 Standard Pain Scale 4 4 *PROMIS-10 scoring scale: mean = 50, over 50 is above average, under 50 is below average Allergies: ALLERGIES No Known Allergies Current Medications: Current Outpatient Medications Medication Sig glipiZIDE (GLUCOTROL XL) 5 mg 24 hr tablet Take 5 mg by mouth once daily. rasagiline (AZILECT) 1 mg tab Take 1 tablet by mouth once daily. ONETOUCH ULTRA BLUE TEST STRIP test strip once daily. ONETOUCH ULTRASOFT LANCETS lancets once daily. meloxicam (MOBIC) 7.5 mg tablet Take 7.5 mg by mouth once daily. metFORMIN ER (GLUCOPHAGE XR) 500 mg 24 hr tablet 500 mg once daily. metoprolol succinate ER (TOPROL XL) 50 mg 24 hr tablet 50 mg once daily. ramipril (ALTACE) 1.25 mg capsule 1.25 mg once daily. simvastatin (ZOCOR) 40 mg tablet 40 mg daily at bedtime. Vitamin E, dl, acetate, (VITAMIN E) 400 unit capsule Take 400 Units by mouth once daily. aspirin, enteric coated (ASPIRIN, ENTERIC COATED) 81 mg EC tablet Take 81 mg by mouth once daily. Magnesium 250 mg tab Take 250 mg by mouth once daily. multivit-minerals/FA/lycopene (ONE-A-DAY MEN'S ORAL) Take by mouth once daily. carbidopa-levodopa (SINEMET) 25-100 mg per tablet Take 1.5 tablets by mouth four times daily. No current facility-administered medications for this visit. Objective: Vital Signs: BP 127/72 Pulse 61 Wt 74.8 kg (165 lb) SpO2 99% BMI 23.01 kg/m? General Medical Examination: General Description of Patient: Well appearing, comfortable Head:normocephalic, atraumatic; There is pooling of saliva in mouth. Neck:No bruits, full range of movement, supple Cardiac: Regular Rate and Rhythm Extremities: No leg edema, pulses intact, no rash or venous stasis changes. Neurological Exam Mental Status Awake and alert. Recent and remote memory are intact. Speech is normal. Language is fluent with no aphasia. Attention and concentration are normal. Fund of knowledge is appropriate for level of education. Cranial Nerves CN II to XII reported as normal . Motor No fasciculations present. Strength is 5/5 throughout all four extremities. No focal weakness appreciated on examination. Sensory Temperature is normal in upper and lower extremities. Vibration is normal in upper and lower extremities. There is no evidence for a stocking-glove gradient in bilateral extremities. Dual simultaneous stimulation is intact. Reflexes Right Left Brachioradialis 2+ 2+ Biceps 2+ 2+ Triceps 2+ 2+ Hamstring 2+ 2+ Patellar 2+ 2+ Right pathological reflex (more content not included)... [facility] 12-05-2022 Instructions Donald Alberts DO - 12/05/2022 2:12 PM EDT Medications 8A 1130A 3P 6P Sinemet 25/100 1.5 1.5 1.5 1.5 Azilect 1mg 1 0 0 0 documented in this encounter [facility] 12-05-2022 History of Present illness Narrative [facility] - FOLLOW UP EVALUATION Donald Alberts [address] [facility] [address] Nathan Bolton MD [address] [facility] [address] Herrera Martinez is a 77 year old male with a history of parkinsonism. He is seen with family. Interval History Since Last Visit: He is falling. There is more ckfkwlyu-uw-riex (FOG) - this is the cause of the falls. He has fallen while he is carrying things. Multitasking is a big issue. There were two falls in the post op period following cataract surgery. FOG seems to be worse in the PM. There is drooling at night. The mucous in the back of the throat is the issue. No WELDER EXPLOSION for 6 years. The Sinemet is not working as well. Parkinson's Medications Schedule: Medications 8A 1230P 430P Sinemet 25/100 1.5 1.5 1.5 Azilect 1mg 1 0 0 Previous Parkinson's Medications: None In addition, the following Parkinson-associated features were evaluated: Daily activities Difficulties with eatin (none) Difficulties in dressing: Yes (slight) Difficulties with hygiene activities: Yes (slight) Difficulties with handwriting: Yes (moderate) Difficulties with doing hobbies and other activities: Yes (slight) Difficulties turning in bed: Yes (slight) Difficulties getting out of bed, car or chair: Yes (slight) Tremors/Gait/Balance Shaking or tremors: 0 (none) Walking and balance problems: Yes (slight) Gait freezing: Yes (slight) Autonomic/Pain Lightheadeness on standin (none) Urinary problems: Yes (slight) Constipation problems: 0 (none) Pain and other sensations: Yes (mild) Speech/Swallowing Speech problems: Yes (moderate) Drooling: Yes (mild) Chewing and swallowing problems: Yes (moderate) - See History of Present Illness (HPI) Sleep/Fatigue Problems sleeping at night: Yes (mild) Daytime sleepiness: Yes (slight) Fatigue: Yes (slight) REM sleep behavior disorder: No Finally, the following table shows the patient's overall global physical and mental health using the PROMIS scale relative to the previous visit: PROMIS-10 Flowsheet Row Office Visit from 06/06/2022 in Neurology Office Visit from 09/06/2021 in Neurology Global Physical Health T Score 44.9 50.8 Global Mental Health T Score 48.3 50.8 0-10 Standard Pain Scale 4 4 *PROMIS-10 scoring scale: mean = 50, over 50 is above average, under 50 is below average Allergies: ALLERGIES No Known Allergies Current Medications: Current Outpatient Medications Medication Sig glipiZIDE (GLUCOTROL XL) 5 mg 24 hr tablet Take 5 mg by mouth once daily. rasagiline (AZILECT) 1 mg tab Take 1 tablet by mouth once daily. ONETOUCH ULTRA BLUE TEST STRIP test strip once daily. ONETOUCH ULTRASOFT LANCETS lancets once daily. meloxicam (MOBIC) 7.5 mg tablet Take 7.5 mg by mouth once daily. metFORMIN ER (GLUCOPHAGE XR) 500 mg 24 hr tablet 500 mg once daily. metoprolol succinate ER (TOPROL XL) 50 mg 24 hr tablet 50 mg once daily. ramipril (ALTACE) 1.25 mg capsule 1.25 mg once daily. simvastatin (ZOCOR) 40 mg tablet 40 mg daily at bedtime. Vitamin E, dl, acetate, (VITAMIN E) 400 unit capsule Take 400 Units by mouth once daily. aspirin, enteric coated (ASPIRIN, ENTERIC COATED) 81 mg EC tablet Take 81 mg by mouth once daily. Magnesium 250 mg tab Take 250 mg by mouth once daily. multivit-minerals/FA/lycopene (ONE-A-DAY MEN'S ORAL) Take by mouth once daily. carbidopa-levodopa (SINEMET) 25-100 mg per tablet Take 1.5 tablets by mouth four times daily. No current facility-administered medications for this visit. Objective: Vital Signs: BP 127/72 Pulse 61 Wt 74.8 kg (165 lb) SpO2 99% BMI 23.01 kg/m General Medical Examination: General Description of Patient: Well appearing, comfortable Head:normocephalic, atraumatic; There is pooling of saliva in mouth. Neck:No bruits, full range of movement, supple Cardiac: Regular Rate and Rhythm Extremities: No leg edema, pulses intact, no rash or venous stasis changes. Neurological Exam Mental Status Awake and alert. Recent and remote memory are intact. Speech is normal. Language is fluent with no aphasia. Attention and concentration are normal. Fund of knowledge is appropriate for level of education. Cranial Nerves CN II to XII reported as normal . Motor No fasciculations present. Strength is 5/5 throughout all four extremities. No focal weakness appreciated on examination. Sensory Temperature is normal in upper and lower extremities. Vibration is normal in upper and lower extremities. There is no evidence for a stocking-glove gradient in bilateral extremities. Dual simultaneous stimulation is intact. Reflexes Right Left Brachioradialis 2+ 2+ Biceps 2+ 2+ Triceps 2+ 2+ Hamstring 2+ 2+ Patellar 2+ 2+ Right pathological reflexes: Kirstin's absent. Left pathological reflexes: Kirstin's absent. Coordination Right: Qudrsv-ag-punz normal. Rapid alternating movement normal.Left: Hrghvx-hv-mebt normal. Rapid alternating movement normal. Gait Casual gait: Narrow stance. Reduced stride length. Hesitant, shuffling and ataxic gait. Reduced right arm swing. Reduced left arm swing. Abnormal pull test. Able to rise from chair without using arms. The patient did not require assistive devices to ambulate. Parkinson's Scales Performed: MDS-UPDRS Motor subscale condition of exam Medication Off/On/Naiive OFF Time of UPDRS 1405 Time of Last Medication 1200 Last Medication Taken 1.5 SINEMET 25/100 DBS Right N/A DBS Left N/A MDS-UPDRS Motor subscale scores Speech 3-Moderate. Speech is difficult to understand to the point that some, but not most sentences are poorly understood. Facial Expression 3-Moderate. Masked facies with lips parted some of the time when the mouth is at rest. Rigidity Neck 3-Moderate. Rigidity detected without the activation maneuver. Full range of motion is achieved with effort. Rigidity Right Upper Extremity 1-Slight. Rigidity only detected with activation maneuver. Rigidity Left Upper Extremity 1-Slight. Rigidity only detected with activation maneuver. Rigidity Right Lower Extremity 1-Slight. Rigidity only detected with activation maneuver. Rigidity Left Lower Extremity 1-Slight. Rigidity only detected with activation maneuver. Finger Taps Right 2-Mild. a) 3 to 5 interruptions during tapping, b) mild slowing, c) the amplitude decrements midway in the 10-tap sequence. Finger Taps Left 2-Mild. a) 3 to 5 interruptions during tapping, b) mild slowing, c) the amplitude decrements midway in the 10-tap sequence. Hand Movements Right 1-Slight. a) the regular rhythm is broken with one or two interruptions or hesitations of the movement, b) slight slowing, c) the amplitude decrements near the end of the task. Hand Movements Left 2-Mild. a) 3 to 5 interruptions during the movements, b) mild slowing, c) the amplitude decrements midway in the task. Arm Movements Right 2-Mild. a) 3 to 5 interruptions during the movements, b) mild slowing, c) the amplitude decrements midway in the sequence. Arm Movements Left 1-Slight. a) the regular rhythm is broken with one or two interruptions or hesitations of the movement, b) slight slowing, c) the amplitude decrements near the end of the sequence. Toe Taps Right 2-Mild. a) 3 to 5 interruptions during the tapping movements, b) mild slowing, c) the amplitude decrements midway in the task. Toe Taps Left 3-Moderate. a) more than 5 interruptions during the tapping movements or at least one longer arrest (freeze) in ongoing movement, b) moderate slowing, c) the amplitude decrements starting after the first tap. Leg Agility Right 3-Moderate. a) more than 5 interruptions during the movement or at least one longer arrest (freeze) in ongoing movement, b) moderate slowing in speed, c) amplitude decrements after the first tap. Leg Agility Left 2-Mild. a) 3 to 5 interruptions during the movements, b) mild slowness, c) the amplitude decrements midway in the task. Arise From Chair 1-Slight. Arising is slower than normal, or may need more than one attempt, or may need to move forward in the chair to arise. No need to use the arms of the chair. Gait 2-Mild. Independent walking but with substantial gait impairment. Gait Freezing 0-Normal. No freezing. Posture Stability 3-Moderate. Stands safely, but with absence of postural response, falls if not caught by examiner. Posture 3-Moderate. Stooped posture, scoliosis or leaning to one side that cannot be corrected volitionally to a normal posture by the patient. Body Bradykinesia 1-Slight. Slight global slowness and poverty of spontaneous movements. Postural Tremor Hand Right 0-Normal. No tremor. Postural Tremor Hand Left 0-Normal. No tremor. Kinetic Tremor Right 0-Normal. No tremor. Kinetic Tremor Left 0-Normal. No tremor. Rest Tremor Amplitude Right Upper Extremity 0-Normal. No tremor. Rest Tremor Amplitude Left Upper Extremity 0-Normal. No tremor. Rest Tremor Amplitude Right Lower Extremity 0-Normal. No tremor. Rest Tremor Amplitude Right Lower Extremity 0-Normal. No tremor. Rest Tremor Amplitude Lip/Jaw 0-Normal. No tremor. Rest Tremor Constancy 0-Normal. No tremor. MDS-UPDRS Motor subscale totals Left Total 12 Right Total 12 Midline Total 19 Tremor Total / 10 0 PIGD Total / 3 5 Overall Total 43 % Change Compared to Last Filed Total Based on today's exam the patient is Suly and Yahr stage 3 (Mild to moderate bilateral disease; some postural instability; physically independent). Assessment and Plan: Mr. Martinez is a 77 year old male with idiopathic Parkinson's disease. The following are the current problems noted and addressed during this visit: Pd (parkinson's disease) (hcc) (primary encounter diagnosis) Sialorrhea Hypophonia Plan: Continue current antiparkinsonian regimen as dosed other than increasing Sinemet 2. PA for botulinum toxin (Myobloc) injections 3. WELDER EXPLOSION locally for swallow evaluation Return in about 6 months (around 06/07/2023). Medical decision making was high complexity due to patient's, multiple symptoms, advancing disease The total time spent on the patient care was 30 minutes with greater than 50% of the time spent on counseling regarding preparing to see the patient, uwjx-xx-yfof patient care, completing clinical documentation, obtaining and/or reviewing separately obtained history, performing a medically appropriate examination, counseling and educating the patient/family/caregiver, ordering medications, tests, or procedures, communicating with other HCPs (not separately reported), communicating results to the patient/family/caregiver, and care coordination (not separately reported) Donald Alberts DO Senior Staff Neurologist - [facility] Diagnosis: Sialorrhea (K11.7) Current Examination: There is pooling of saliva in mouth. Special Features: see above Functional Limitations: 3(severe) Pain: No Date of Diagnosis:No Estimated Duration of treatment: Will reassess after 1year Frequency of treatment: 90days What other treatments have been tried and failed: Medications Next Appointment Notes: Send Staff Message to RN to start process for neurotoxin prior authorization. Procedure Note: bilateral salivary gland injection with botulinum toxin Neurotoxin: Yes Myobloc: [id number] Dose: 5K units Administered with EMG guidance: Yes documented in this encounter [facility] 09-27-2022 Note OPERATIVE NOTE OPERATION DATE: 09/27/2022 SURGEON: Saniya Garzon D.O. PREOPERATIVE DIAGNOSIS: Nuclear sclerotic cataract right eye. POSTOPERATIVE DIAGNOSIS: Nuclear sclerotic cataract right eye. PROCEDURE NAME: Cataract extraction with intraocular lens placement of the right eye. ANESTHESIA: Topical ESTIMATED BLOOD LOSS: Zero. COMPLICATIONS: None. PROCEDURE: The patient was brought to the Operating Room in supine position. After proper identification, the right eye was prepped and draped in a sterile ophthalmic fashion. A paracentesis created at the 11 o'clock position. Approximately 1 cc of unpreserved Xylocaine was injected into the anterior chamber followed by Amvisc Plus. Using a 2.6 mm Keratome blade, a clear corneal incision was created at the 9 o'clock limbus. A cystotome was then used to begin a curvilinear capsulorrhexis that was continued for 360 degrees with the Utrata forceps. BSS on a 26 gauge cannula was injected beneath the anterior capsule to hydrodissect as well as hydrodelineate the lens. After ensuring mobility, phacoemulsification was performed in a thkwfxw-pyg-gvgwdb-type fashion. After all nuclear material had been removed from the eye, IA was introduced and all residual cortical material was cleaned up. Additional Amvisc Plus was injected into the posterior bag and a lens model MX60, 18.0 diopters was injected and dialed into position. After ensuring centration, IA was reintroduced into the anterior chamber and all residual Amvisc Plus was removed from the eye. BSS on a 30 gauge cannula was injected into the stroma of both the clear corneal incision as well as paracentesis to hydrate the wounds. Additional BSS was injected into the anterior chamber to pressurize the eye at approximately 20 to 22 mmHg by finger tension. 0.1 cc of antibiotic was injected into the anterior chamber and Weck-Thi sponges were used to check the wounds to be watertight. One drop of apraclonidine and one drop of prednisolone acetate placed into the eye and a shield was placed over top. The patient was sent to the postoperative area in satisfactory condition to follow up the following day for postoperative care. [facility] 09-27-2022 Note PREOPERATIVE HISTORY AND PHYSICAL Date:09/26/2021 HISTORY: Patient is a 77-year-old white male with complaints of difficulty with his vision out of his right eye. He believes this has taken place over the last several years, gradually worsening over that timeframe. He has difficulty with reading his computer and seeing the newspaper. He also states having difficulty driving at night time because of glare and halos. PAST OCULAR HISTORY / PAST MEDICAL HISTORY / SOCIAL HISTORY / MEDICATIONS / ALLERGIES TO MEDICATIONS / REVIEW OF SYSTEMS / PHYSICAL EXAM: Unchanged from previously dictated. ASSESSMENT AND PLAN: 1. Visually significant cataract, right eye. After risks, benefits, alternatives, as well as expectations were delivered to the patient, he elected to go forward with cataract removal. He understands the risks include but not limited to infection, bleeding, loss of vision, loss of the eye itself. Secondly, he understands postoperatively he is likely to require spectacle correction for his best visual acuity. Finally, a complete ophthalmic exam was performed, there is not determined to be any other source of visual decline other than that of the cataract. 2. COVID-19, the patient was briefed in the office and consented for elective cataract surgery in the setting of the pandemic of coronavirus. He understands that he is at heightened risk going into a hospital setting; however, feels that his activities of daily living are depleted severe enough by his cataracts that he is willing to incur this risk and go forward with his elective procedure. [facility] 09-10-2022 Miscellaneous Notes Requested Prescriptions Pending Prescriptions Disp Refills rasagiline (AZILECT) 1 mg tab 90 tablet 1 Sig: Take 1 tablet by mouth once daily. documented in this encounter [facility] 08-30-2022 Note OPERATIVE NOTE OPERATION DATE: 08/30/2022 SURGEON: Saniya Garzon D.O. PREOPERATIVE DIAGNOSIS: Nuclear sclerotic cataract left eye. POSTOPERATIVE DIAGNOSIS: Nuclear sclerotic cataract left eye. PROCEDURE NAME: Cataract extraction with intraocular lens placement of the left eye. ANESTHESIA: Topical ESTIMATED BLOOD LOSS: Zero. COMPLICATIONS: None. PROCEDURE: The patient was brought to the Operating Room in supine position. After proper identification, the left eye was prepped and draped in a sterile ophthalmic fashion. A paracentesis created at the 5 o'clock position. Approximately 1 mL of unpreserved Xylocaine was injected into the anterior chamber followed by Amvisc Plus. Using a 2.6 mm Keratome blade, a clear corneal incision was created at the 3 o'clock limbus. A cystotome was then used to begin a curvilinear capsulorrhexis that was continued for 360 degrees with the Utrata forceps. BSS on a 26 gauge cannula was injected beneath the anterior capsule to hydrodissect as well as hydrodelineate the lens. After ensuring mobility, phacoemulsification was performed in a phlybum-lcq-epamdg-type fashion. After all nuclear material had been removed from the eye, IA was introduced and all residual cortical material was cleaned up. Additional Amvisc Plus was injected into the posterior bag and a lens model MX60, 19.0 diopters was injected and dialed into position. After ensuring centration, IA was reintroduced into the anterior chamber and all residual Amvisc Plus was removed from the eye. BSS on a 30 gauge cannula was injected into the stroma of both the clear corneal incision as well as paracentesis to hydrate the wounds. Additional BSS was injected into the anterior chamber to pressurize the eye at approximately 20 to 22 mmHg by finger tension. 0.1 cc of antibiotic was injected into the anterior chamber. Weck-Thi sponges were used to check the wounds to be watertight. One drop of apraclonidine and one drop of prednisolone acetate placed into the eye and a shield was placed over top. The patient was sent to the postoperative area in satisfactory condition to follow up the following day for postoperative care. [facility] 08-30-2022 Note HISTORY AND PHYSICAL EXAMINATION Date:08/29/2022 HISTORY: The patient is a 77-year-old white male with complaints of declining vision out of his left eye. General onset of this has occurred over the last several years. He is bothered mostly by night time driving with headaches and street lights creating glare and halos. He also states having foggy vision and difficulty seeing the television. 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 2. Dry eye syndrome. 3. Cataracts. PAST MEDICAL HISTORY: 1. Parkinson's disease. 2. Non-insulin dependent diabetes mellitus. 3. Appendectomy. 4. Melanoma. 5. Hypertension. 6. Hypercholesterolemia. 7. General arthritis. SOCIAL HISTORY: Denies tobacco, alcohol or recreational drug abuse. SYSTEMIC MEDICATIONS: Include simvastatin, ramipril, metoprolol, metformin and meloxicam. ALLERGIES: Denies. REVIEW OF SYSTEMS: No pertinent positives. PHYSICAL EXAM: VITALS: Blood pressure measured at 148/85 with a respiratory rate of 12 and pulse of 73. GENERAL: He is awake, alert and oriented x3, well developed, well nourished, in no acute distress. HEART: Regular rate and rhythm. LUNGS: Clear bilaterally. ABDOMEN: Soft, non-tender, non-distended. EXTREMITIES: No pitting edema. OPHTHALMIC EXAM: Revealed a visual acuity of 20/80 that glared to 20/200 in the right eye and 20/200 that glared to 20/400 in the left eye. Pupils motility, muscle balance, confrontational visual love within normal limits bilaterally. Pressures measured at 16 bilaterally. Slit lamp exam revealed blepharitis with a severe decrease in tear film bilaterally. Conjunctiva, cornea, anterior chamber and iris were within normal limits bilaterally. Lens status demonstrated 2+ nuclear sclerosis with vacuoles bilaterally. FUNDUS EXAM: Revealed good view with good dilation bilaterally. Optic discs, macula, vessels, periphery and vitreous were within normal limits bilaterally. ASSESSMENT AND PLAN: 1. Visually significant cataract, left eye. After risks, benefits, alternatives, as well as expectations were delivered to the patient, he elected to go forward with cataract removal. He understands the risks include but not limited to infection, bleeding, loss of vision, loss of the eye itself. Secondly, he understands postoperatively he is likely to require spectacle correction for his best visual acuity. Finally, a complete ophthalmic exam was performed, there is not determined to be any other source of visual decline other than that of the cataract. 2. COVID-19, the patient was briefed in the office and consented for elective cataract surgery in the setting of the pandemic of coronavirus. He understands that he is at heightened risk going into a hospital setting; however, feels that his activities of daily living are depleted severe enough by his cataracts that he is willing to incur this risk and go forward with his elective procedure. [facility] 06-27-2022 Note CONSULTATION CONSULTATION DATE: 06/27/2022 HISTORY OF PRESENT ILLNESS: This is a very pleasant, 76-year-old gentleman with Parkinson's who presents to the clinic, accompanied by his , status post repeat RFA of L2, L3 and L4, L5. This was completed on 05/22/2022 and he was afforded 98% relief. He has noticed easier transitioning from sitting to standing, prolonged periods of time walking with less pain. He fell approximately one week ago and has left rib contusions. The patient did not want to go to the hospital, so unsure if he has a possible rib fracture. Medications include Mobic 7.5 mg daily and Extra Strength Tylenol. Patient's REVIEW OF SYSTEMS / PAST MEDICAL HISTORY / ALLERGIES and IMAGES have been reviewed and they are noted on the chart. PHYSICAL EXAM: VITAL SIGNS: Blood pressure 128/71, heart rate is 53. He is 5'11 , weighs 74 kg. GENERAL IMPRESSION: Pleasant, appropriate, no acute distress. at chair side. FOCUSED EXAM - BACK: Range of motion is functional in lateral rotation and flexion/extension. Paravertebral muscles are taut bilaterally. No reproduction of spinal axial pain upon compression of the lumbar facets. Nita's point is non-tender bilaterally with negative FABERs and Compression test. MUSCULOSKELETAL: Diffuse muscle atrophy noted bilateral lower extremities. Patient does walk with a slight forward flexion, slow but shuffled gait. He does not use an assistive device. NEUROLOGICALLY: Patient with Parkinson's, slightly low to respond. +1 bilateral patellar and Achilles reflexes. DIAGNOSIS: Lumbar spondylosis, lumbar degenerative disc disease and left rib contusion. PLAN: Overall, the patient is doing well. There will be no change in medications today. I recommended more supportive home measures including topical Voltaren and Vicks to his lower back and left rib as well as heat application. All questions were answered today and the patient is to follow up on a p.r.n. basis. [facility] 06-22-2022 Miscellaneous Notes I spoke with Mr. Martinez to inform her MRI for Herrera is normal per Dr. Patino. ----- Message from Juan Patino MD sent at 06/20/2022 2:51 PM EST ----- Regarding: MRI results Suzanne, I am covering for Dr. Alberts today. Please let this patient know that his MRI results came back normal. Thanks, Dr. Patino documented in this encounter [facility] 06-20-2022 Note HNO ID: [id number] Author: RT Elo(R) Service: Radiology Author Type: Technologist Type: Progress Notes Filed: 06/20/2022 1:16 PM Note Text: Radiology Service Progress Note PATIENT NAME: Herrera Martinez DATE OF SERVICE: June 20, 2022 TIME: 1:15 PM PATIENT IDENTITY VERIFICATION COMPLETED USING TWO (2) IDENTIFIERS: Name and Date of confirmed by patient verbally and Name and Date of confirmed by identification band. FALL SCREENING: Has the patient had 2 falls in the last year or 1 fall with injury or currently using an Ambulatory Assistive Device (Walker, Cane, Wheelchair, Crutches, etc.)? No PATIENT GENDER DATA: Male PATIENT RELEVANT IMPLANT DATA REVIEWED: Yes RADIOLOGY DEPARTMENT: MR; Exam(s) Completed: Head: Routine Brain PERIPHERAL IV DATA: Not applicable SIGNED BY: RT Elo(R) June 20, 2022 1:15 PM [facility] 06-06-2022 History of Present illness Narrative [facility] - FOLLOW UP EVALUATION Nathan Bolton MD [address] [facility] [address] [address] Herrera Martinez is a 76 year old male with a history of PD. He is seen with his . Interval History Since Last Visit: The patient notes that he is more clumsy - the speech has worsened over the last couple of weeks. the walking has had more amugovzg-fh-qkvp (FOG). No falls are noted. The notes that he was a little mentally foggy. He had lumbar spine ablations a couple of weeks ago. Parkinson's Medications Schedule: Medications 8A 1230P 430P Sinemet 25/100 1.5 1.5 1.5 Azilect 1mg 1 0 0 Previous Parkinson's Medications: None In addition, the following Parkinson-associated features were evaluated: Daily activities Difficulties with eatin (none) Difficulties in dressing: Yes (slight) Difficulties with hygiene activities: Yes (mild) Difficulties with handwriting: Yes (mild) Difficulties with doing hobbies and other activities: Yes (mild) Difficulties turning in bed: Yes (slight) Difficulties getting out of bed, car or chair: Yes (slight) Tremors/Gait/Balance Shaking or tremors: 0 (none) Walking and balance problems: Yes (slight) Gait freezing: Yes (slight) Autonomic/Pain Lightheadeness on standin (none) Urinary problems: 0 (none) Constipation problems: 0 (none) Pain and other sensations: Yes (slight) Speech/Swallowing Speech problems: Yes (mild) Drooling: Yes (slight) Chewing and swallowing problems: Yes (slight) Sleep/Fatigue Problems sleeping at night: Yes (mild) Daytime sleepiness: Yes (slight) Fatigue: Yes (slight) REM sleep behavior disorder: No Mood/Behavior/Cognition Depression: PQH-9 = 2 usually representing no significant (0-4) depression. Anxiety: JULIO C-7 = 3 usually representing no significant (0-4) anxiety. Finally, the following table shows the patient's overall global physical and mental health using the PROMIS scale relative to the previous visit: PROMIS-10 Flowsheet Row Office Visit from 06/06/2022 in Neurology Office Visit from 09/06/2021 in Neurology Global Physical Health T Score 44.9 50.8 Global Mental Health T Score 48.3 50.8 0-10 Standard Pain Scale 4 4 *PROMIS-10 scoring scale: mean = 50, over 50 is above average, under 50 is below average Allergies: ALLERGIES No Known Allergies Current Medications: Current Outpatient Medications Medication Sig rasagiline (AZILECT) 1 mg tab Take 1 tablet by mouth once daily. carbidopa-levodopa (SINEMET) 25-100 mg per tablet Take 1.5 tablets by mouth three times daily. ONETOUCH ULTRA BLUE TEST STRIP test strip once daily. ONETOUCH ULTRASOFT LANCETS lancets once daily. meloxicam (MOBIC) 7.5 mg tablet Take 7.5 mg by mouth once daily. metFORMIN ER (GLUCOPHAGE XR) 500 mg 24 hr tablet 500 mg once daily. metoprolol succinate ER (TOPROL XL) 50 mg 24 hr tablet 50 mg once daily. ramipril (ALTACE) 1.25 mg capsule 1.25 mg once daily. simvastatin (ZOCOR) 40 mg tablet 40 mg daily at bedtime. Vitamin E, dl, acetate, (VITAMIN E) 400 unit capsule Take 400 Units by mouth once daily. aspirin, enteric coated (ASPIRIN, ENTERIC COATED) 81 mg EC tablet Take 81 mg by mouth once daily. Magnesium 250 mg tab Take 250 mg by mouth once daily. multivit-minerals/FA/lycopene (ONE-A-DAY MEN'S ORAL) Take by mouth once daily. No current facility-administered medications for this visit. Objective: Vital Signs: BP 135/75 (BP Site: Left Arm, BP Position: Sitting, BP Cuff Size: Regular Adult) Pulse 69 Ht 180.3 cm (5' 11 ) Wt 74.4 kg (164 lb) SpO2 100% BMI 22.87 kg/m General Medical Examination: General Description of Patient: Well appearing, comfortable Head:normocephalic, atraumatic Neck:No bruits, full range of movement, supple Cardiac: Regular Rate and Rhythm Extremities: No leg edema, pulses intact, no rash or venous stasis changes. Neurological Exam Mental Status Oriented to person, place and time. Recent and remote memory are intact. Speech is normal. Language is fluent with no aphasia. Attention and concentration are normal. Fund of knowledge is appropriate for level of education. Cranial Nerves CN II to XII reported as normal . Motor No fasciculations present. Strength is 5/5 throughout all four extremities. Sensory There is no evidence for a stocking-glove gradient in bilateral extremities. Dual simultaneous stimulation is intact. Reflexes Right Left Brachioradialis 2+ 2+ Biceps 2+ 2+ Triceps 2+ 2+ Patellar 2+ 2+ Right pathological reflexes: Kirstin's absent. Left pathological reflexes: Kirstin's absent. Coordination Right: Dpsrzm-dx-apwp normal. Rapid alternating movement normal. Left: Gzgjke-ev-uqqs normal. Rapid alternating movement normal. Gait Casual gait: Narrow stance. Reduced stride length. Shuffling gait. Reduced right arm swing. Reduced left arm swing. The patient did not require assistive devices to ambulate. Parkinson's Scales Performed: MDS-UPDRS Motor subscale condition of exam Medication Off/On/Naiive OFF Time of UPDRS 1652 Time of Last Medication 1630 Last Medication Taken 1.5 SINEMET 25/100 DBS Right N/A DBS Left N/A MDS-UPDRS Motor subscale scores Speech 3-Moderate. Speech is difficult to understand to the point that some, but not most sentences are poorly understood. Facial Expression 2-Mild. In addition to decreased eye-blink frequency, Masked facies present in the lower face as well, namely fewer movements around the mouth, such as less spontaneous smiling, but lips not parted. Rigidity Neck 3-Moderate. Rigidity detected without the activation maneuver. Full range of motion is achieved with effort. Rigidity Right Upper Extremity 2-Mild. Rigidity detected without the activation maneuver, but full range of motion is easily achieved. Rigidity Left Upper Extremity 2-Mild. Rigidity detected without the activation maneuver, but full range of motion is easily achieved. Rigidity Right Lower Extremity 2-Mild. Rigidity detected without the activation maneuver, but full range of motion is easily achieved. Rigidity Left Lower Extremity 2-Mild. Rigidity detected without the activation maneuver, but full range of motion is easily achieved. Finger Taps Right 2-Mild. a) 3 to 5 interruptions during tapping, b) mild slowing, c) the amplitude decrements midway in the 10-tap sequence. Finger Taps Left 2-Mild. a) 3 to 5 interruptions during tapping, b) mild slowing, c) the amplitude decrements midway in the 10-tap sequence. Hand Movements Right 1-Slight. a) the regular rhythm is broken with one or two interruptions or hesitations of the movement, b) slight slowing, c) the amplitude decrements near the end of the task. Hand Movements Left 2-Mild. a) 3 to 5 interruptions during the movements, b) mild slowing, c) the amplitude decrements midway in the task. Arm Movements Right 2-Mild. a) 3 to 5 interruptions during the movements, b) mild slowing, c) the amplitude decrements midway in the sequence. Arm Movements Left 2-Mild. a) 3 to 5 interruptions during the movements, b) mild slowing, c) the amplitude decrements midway in the sequence. Toe Taps Right 2-Mild. a) 3 to 5 interruptions during the tapping movements, b) mild slowing, c) the amplitude decrements midway in the task. Toe Taps Left 2-Mild. a) 3 to 5 interruptions during the tapping movements, b) mild slowing, c) the amplitude decrements midway in the task. Leg Agility Right 2-Mild. a) 3 to 5 interruptions during the movements, b) mild slowness, c) the amplitude decrements midway in the task. Leg Agility Left 2-Mild. a) 3 to 5 interruptions during the movements, b) mild slowness, c) the amplitude decrements midway in the task. Arise From Chair 1-Slight. Arising is slower than normal, or may need more than one attempt, or may need to move forward in the chair to arise. No need to use the arms of the chair. Gait 2-Mild. Independent walking but with substantial gait impairment. Gait Freezing 0-Normal. No freezing. Posture Stability 3-Moderate. Stands safely, but with absence of postural response, falls if not caught by examiner. Posture 3-Moderate. Stooped posture, scoliosis or leaning to one side that cannot be corrected volitionally to a normal posture by the patient. Body Bradykinesia 1-Slight. Slight global slowness and poverty of spontaneous movements. Postural Tremor Hand Right 0-Normal. No tremor. Postural Tremor Hand Left 0-Normal. No tremor. Kinetic Tremor Right 0-Normal. No tremor. Kinetic Tremor Left 0-Normal. No tremor. Rest Tremor Amplitude Right Upper Extremity 0-Normal. No tremor. Rest Tremor Amplitude Left Upper Extremity 0-Normal. No tremor. Rest Tremor Amplitude Right Lower Extremity 0-Normal. No tremor. Rest Tremor Amplitude Right Lower Extremity 0-Normal. No tremor. Rest Tremor Amplitude Lip/Jaw 0-Normal. No tremor. Rest Tremor Constancy 0-Normal. No tremor. MDS-UPDRS Motor subscale totals Left Total 14 Right Total 13 Midline Total 18 Tremor Total / 10 0 PIGD Total / 3 5 Overall Total 45 % Change Compared to Last Filed Total Based on today's exam the patient is Suly and Yahr stage 2 (Bilateral disease without impairment of balance). Assessment and Plan: Mr. Martinez is a 76 year old male with idiopathic Parkinson's disease. The following are the current problems noted and addressed during this visit: Pd (parkinson's disease) (formerly [facility]) (primary encounter diagnosis) Dysarthria Plan: Continue current antiparkinsonian regimen as dosed. MRI brain for dysarthria Medical decision making was high complexity due to patient's, multiple symptoms, advancing disease The total time spent on the patient care was 25 minutes with greater than 50% of the time spent on counseling regarding preparing to see the patient, dwzi-zd-[id number] patient care, completing clinical documentation, obtaining and/or reviewing separately obtained history, performing a medically appropriate examination, counseling and educating the patient/family/caregiver, ordering medications, tests, or procedures, and communicating results to the patient/family/caregiver. I tried to answer all of the patient's questions and concerns during this visit. Donald Alberts DO Senior Staff Neurologist - [facility] documented in this encounter [facility] 05-15-2022 Note CONSULTATION CONSULTATION DATE: 05/15/2022 CHIEF COMPLAINT: Low back pain, posterior thigh pain. HISTORY OF PRESENT ILLNESS: This is a very pleasant, 76-year-old gentleman who is accompanied by his . The patient suffers from Parkinson's. The patient is being treated at [facility] with regards to this. The patient reports his low back pain has been gradually increasing. We had performed a rhizotomy radiofrequency ablation in May of 2020, which has afforded the patient substantial relief, 85+% to this time. The patient has been functioning autonomously. The patient ambulates without any assistive devices. He rates the pain as a 5/10. Sitting mitigates the pain as does lying down. Standing, walking aggravates the patient's pain, as does ADLs and activities. X-rays show the lateral listhesis and significant discophytes that are present bilaterally, secondary to the scoliosis. The patient currently takes Mobic 7.5 daily, Tylenol evbm-thk-eelagdn. The patient also is on Sinemet, metformin, metoprolol and with regards to his Parkinson's. The patient's PAST MEDICAL HISTORY / SURGICAL HISTORY / REVIEW OF SYSTEMS are noted on the chart, along with the MEDICATION LIST / ALLERGIES and the RADIOLOGICAL IMAGES. PHYSICAL EXAM: Upon physical examination, this is a pleasant, cooperative gentleman, who does not appear to be in any acute distress. The patient has a slow shuffle gait. VITAL SIGNS: 103/58 with a heart rate of 94. At a height of 5'11 , the patient weighs 77 kg. FOCUSED EVALUATION - HEAD: Atraumatic. NECK: Patient is guarded. HEART: No orthopnea. LUNGS: Non-labored breathing. BACK: Loss of lumbar lordosis is noted. Scoliotic curve is present. Extension, compression, direct palpation aggravate the patient's pain, concordant with facet arthropathy, more prominently on the left hand side compared to the right hand side. Pelvis is rotated anteriorly in a decompressive maneuver. EXTREMITIES: Global atrophy of the muscles is noted in his quads and in his legs bilaterally. MUSCULOSKELETAL: However, is intact at 4+/5. NEUROLOGICALLY: No radicular symptomatology is noted. The patient does not use any assistive device for ambulation. PSYCHIATRICALLY: Affect is appropriate. IMPRESSION: Chronic low back pain, significant lumbar degenerative disc disease, lumbar scoliosis, lateral listhesis of the lumbar spine. PLAN: Given the fact the patient has had 85+% improvement of his pain symptomatology secondary to the rhizotomy radiofrequency ablation on 05/2020 and the patient's decreased need of medications, we would look to proceed with repeat rhizotomy radiofrequency ablation at the level of L2, L3 and L4, L5 bilaterally. The patient and his understand and would like to proceed. With regards to his sarcopenia, muscle atrophy and low T, we will at that time give the patient testosterone cypionate 150 mg IM. CC: Nathan Bolton M.D. [facility] Evaluation note Diagnosis PD (Parkinson's disease) (HCC)- Primary Paralysis agitans Dysarthria [facility] PD (Parkinson's disease) (HCC)- Primary Paralysis agitans Sialorrhea Disturbance of salivary secretion Hypophonia Other voice and resonance disorders [facility] PD (Parkinson's disease) (HCC) Paralysis agitans [facility] Sialorrhea- Primary Disturbance of salivary secretion [facility] Diagnosis Epigastric abdominal pain- Primary Abdominal pain, epigastric documented in this encounter [facility] Summary Purpose Family History No Family History Records FoundNo Family History Records FoundNo Family History Records FoundNo Family History Records FoundNo Family History Records FoundNo Family History Records Found Advance Directives No Advanced Directives Records FoundNo Advanced Directives Records FoundNo Advanced Directives Records FoundNo Advanced Directives Records FoundNo Advanced Directives Records FoundNo Advanced Directives Records Found Reason for Referral Specialty Diagnoses / Procedures Referred By El chaves Referred To Contact Diagnoses PD (Parkinson's disease) (HCC) Dysarthria Procedures PROVIDER ORDERED FOLLOW UP OFFICE/OUTPATIENT [facility] 60-74 MINUTES Donald Alberts DO [address] [place] [address] Referral ID Status Reason Start Date Expiration Date V isits Requested Visits Authorized [id number] Pending Review 12/04/2022 03/04/2023 1 1 Specialty Diagnoses / Procedures Referred By El chaves Referred To Contact MR IMAGING Diagnoses PD (Parkinson's disease) (HCC) Dysarthria Procedures MRI BRAIN WO IVCON MRI BRAIN BRAIN STEM W/O CONTRAST MATERIAL Donald Alberts DO [address] [place] [address] Mr Imaging Referral ID Status Reason Start Date Expiration Date Visits Requested Visits Authorized [id number] Authorized Auto-Generat ed Referral 06/06/2022 07/06/2023 1 1 Specialty Diagnoses / Procedures Referred By El chaves Referred To Contact Diagnoses PD (Parkinson's disease) (HCC) Procedures PROVIDER ORDERED FOLLOW UP OFFICE/OUTPATIENT [facility] 60-74 MINUTES Donald Alberts DO [address] [place] [address] Referral ID Status Reason Start Date Expiration Date V isits Requested Visits Authorized [id number] Pending Review 06/07/2023 09/05/2023 1 1 Specialty Diagnoses / Procedures Referred By El chaves Referred To Contact [facility] Diagnoses PD (Parkinson's disease) (HCC) Sialorrhea Hypophonia Procedures CONSULT TO SPEECH THERAPY OFFICE/OUTPATIENT [facility] 60-74 MINUTES Donald Alberts, DO [address] [place] [address] [facility] [address] [place] [address] Referral ID Status Reason Start Date Expiration Date Visits Requested Visits Authorized [id number] Pending Review Auto-Generat ed Referral 12/05/2022 12/05/2023 1 1 Additional Source Comments (unrecognized sect ion and content) No Status Records FoundNo Status Records FoundNo Status Records FoundNo Status Records FoundNo Status Records FoundNo Status Records Found INFORMATION SOURCE (unrecogn ized section and content) DATE CREATED AUTHOR 03/26/2020 [facility] DATE CREATED AUTHOR AUTHOR'S ORGANIZ ATION 11/22/2020 [facility] DATE CREATED AUTHOR AUTHOR'S ORGANIZ ATION 06/22/2022 [facility] DATE CREATED AUTHOR AUTHOR'S ORGANIZ ATION 01/04/2023 [facility] DATE CREATED AUTHOR AUTHOR'S ORGANIZ ATION 06/17/2023 [facility] DATE CREATED AUTHOR AUTHOR'S ORGANIZ ATION 09/11/2023 [facility] EPIC Source Comments (unrecognize d section and content) In the event this informatio n is protected by the Federal Confidentiality of Alcohol and Drug Abuse Patient Records regulations: The Federal rules restrict any use of the information to criminally investigate or prosecute any alcohol or drug abuse patient.[facility] the event this information is protected by the Federal Confidentiality of Alcohol and Drug Abuse Patient Records regulations: The Federal rules restrict any use of the information to criminally investigate or prosecute any alcohol or drug abuse patient.[facility] the event this information is protected by the Federal Confidentiality of Alcohol and Drug Abuse Patient Records regulations: The Federal rules restrict any use of the information to criminally investigate or prosecute any alcohol or drug abuse patient.[facility] the event this information is protected by the Federal Confidentiality of Alcohol and Drug Abuse Patient Records regulations: The Federal rules restrict any use of the information to criminally investigate or prosecute any alcohol or drug abuse patient.[facility] the event this information is protected by the Federal Confidentiality of Alcohol and Drug Abuse Patient Records regulations: The Federal rules restrict any use of the information to criminally investigate or prosecute any alcohol or drug abuse patient.[facility] the event this information is protected by the Federal Confidentiality of Alcohol and Drug Abuse Patient Records regulations: The Federal rules restrict any use of the information to criminally investigate or prosecute any alcohol or drug abuse patient.[facility] the event this information is protected by the Federal Confidentiality of Alcohol and Drug Abuse Patient Records regulations: The Federal rules restrict any use of the information to criminally investigate or prosecute any alcohol or drug abuse patient.[facility] Reason for Visit (unrecogniz ed section and content) Reason Comments Established Patient (Parkinson's disease Reason Comments Results MRI NL Reason Onset Date Comments Refill Request 09/10/2022 Reason Comments Follow Up Pt states that feet are freezing more frequently and is drooling during sleep. Has had a 4 falls in the last 6 weeks Specialty Diagnoses / Procedures Referred By Contac t Referred To Contact Diagnoses PD (Parkinson's disease) (HCC) Dysarthria Procedures PROVIDER ORDERED FOLLOW UP OFFICE/OUTPATIENT NEW HIGH MDM 60-74 MINUTES Donald Alberts, DO [address] [place] [address] Referral ID Status Reason Start Date Expiration Date V isits Requested Visits Authorized [id number] Pending Review 12/04/2022 03/04/2023 1 1 Reason Onset Date Comments Refill Request 02/19/2023 Reason Comments Abdominal Pain Pain goes from back to stomach Care Teams (unrecognized sec tion and content) Finance Teacher Relationship Specialty Start Date End Date Nathan Bolton [address] [place] [address] PCP - General Family Medicine 07/29/20 Finance Teacher Relationship Specialty Start Date End Date Nathan Bolton [address] [place] [address] PCP - General Family Medicine 07/29/20 Finance Teacher Relationship Specialty Start Date End Date Nathan Bolton [address] [place] [address] PCP - General Family Medicine 07/29/20 Finance Teacher Relationship Specialty Start Date End Date Nathan Bolton [address] [place] [address] PCP - General Family Medicine 07/29/20 Finance Teacher Relationship Specialty Start Date End Date Nathan Bolton [address] [place] [address] PCP - General Family Medicine 07/29/20 Finance Teacher Relationship Specialty Start Date End Date Nathan Bolton [address] [place] [address] PCP - General Family Medicine 07/29/20 Finance Teacher Relationship Specialty Start Date End Date Nathan Bolton [address] [place] [address] PCP - [facility] 07/29/20 Finance Teacher Relationship Specialty Start Date End Date Nathan Bolton MD [address] [place] [address] PCP - [facility] 09/10/23 Finance Teacher Relationship Specialty Start Date End Date Nathan Bolton MD [address] [place] [address] PCP - [facility] 09/10/23 FOR RECORDS PERTAINING TO PATIENTS WHO ARE OR HAVE BEEN ENROLLED IN A CHEMICAL DEPENDENCY/SUBSTANCEABUSE PROGRAM, SOME INFORMATION MAY BE OMITTED. This clinical summary was aggregated from multiple sources. Caution should be exercised in using it in the provision of clinical care. This summary normalizes information from multiple sources, and as a consequence, information in this document may materially change the coding, format and clinical context of patient data. In addition, data may be omitted in some cases. CLINICAL DECISIONS SHOULD BE BASED ON THE PRIMARY CLINICAL RECORDS. [facility] [employer] [facility]. provides no warranty or guarantee of the accuracy or completeness of information in this document.
== END 2023-09-13 09:06 | disposition home or self-care (01) ==
LOC: US 09:06
PROVIDERS: PCP Family Medicine; Visit Provider Family Medicine
DX: R10.13 Epigastric pain (principal); K21.9 Gastro-esophageal reflux disease without esophagitis; N20.0 Calculus of kidney
CPT/HCPCS: 74246; 76120; 76705

== ENCOUNTER 2023-12-03 12:30 | Emergency (ER) | payer MEDICARE, SELFPAY ==
--- OUTSIDE RECORDS SUMMARY | 2023-12-03 12:46 | XMS_ITS | CCD ---
Author Organization [facility] Care Team Providers Care Bureau Director Name Role Phone Nathan Bolton Primary Care Provider DONALD ALBERTS Referring Unavailable NATHAN BOLTON Primary Care Unavailable Nathan Bolton Primary Care Provider [phone] CASANDRA ., DR NIKHIL Ross Admitting Unavailable GUAJARDO ., DR NIKHIL Ross Attending Unavailable LE .DANIEL Consulting Unavailable NADEREGideon, DR NATHAN Alonso Primary Care Unavailable GUAJARDO ., DR NIKHIL Ross Admitting Unavailable GUAJARDO ., DR NIKHIL Ross Consulting Unavailable GUAJARDO ., DR NIKHIL Ross Attending Unavailable NADERER, DR NATHAN Alonso Primary Care Unavailable NICA HOUSE Consulting Unavailable GUAJARDO ., DR NIKHIL Ross Admitting Unavailable GUAJARDO ., DR NIKHIL Ross Consulting Unavailable NADROBERTA, DR NATHAN Alonso Primary Care Unavailable GUAJARDO ., DR INKHIL Ross Attending Unavailable ZASANIYA BROWN Consulting Unavailable SANIYA GARZON Attending Unavailable NADROBERTA, [...] NADEREGideon, DR NATHAN Alonso Primary Care Unavailable NADEREGideon, DR NATHAN Alonso Primary Care Unavailable NADEREGideon, DR NATHAN Alonso Consulting Unavailable NADEREGideon, DR NATHAN Alonso Attending Unavailable NADEREGideon, DR NATHAN Alonso Admitting Unavailable NADERER, DR NTAHAN Alonso Consulting Unavailable NADERER, DR NATHAN Alonso Attending Unavailable NADERER, DR NATHAN Alonso Admitting Unavailable HOANG, DR NATHAN Alonso Primary Care Unavailable ALISE, DR NOBLE Attending Unavailable BONNIE, DR NOBLE Admitting Unavailable HOANG, DR NATHAN Alonso Primary Care Unavailable SADAF ., JOANNE Attending Unavailable SADAF ., JOANNE Admitting Unavailable BONNIE, DR AYAZ Meneses Consulting Unavailable HOANG, DR NATHAN Alonso Primary Care Unavailable SADAF Rudolph, JOANNE Consulting Unavailable DONALD ALBERTS Attending Unavailable NATHAN BOLTON Primary Care Unavailable DONALD ALBERTS Referring Unavailable DONALD ALBERTS Attending Unavailable NATHAN BOLTON Primary Care Unavailable Nathan Bolton MD Primary Care Provider [phone] AYAZ SANTO Attending Unavailable NATHAN BOLTON Attending Unavailable NATHAN BOLTON Attending Unavailable Medications [...] not crush, chew, or split. 0 Active carbidopa 25 mg / levodopa 100 mg oral tablet (14 sources) Aromatic Amino Acid Decarboxylation Inhibitor, Aromatic Amino Acid Start: 12-05-2022 End: 05-23-2024 take 1.5 tablets by mouth four times daily carbidopa-levodopa (SINEMET) 25-100 mg per tablet Indications: PD (Parkinson's disease) (HCC) Take 1.5 tablets by mouth four times daily. 540 tablet 3 05/24/2023 05/23/2024 Active Start: 02-19-2022 End: 03-09-2023 take 1.5 [...] times daily. glipiZIDE 10 mg oral tablet (8 sources) Sulfonylurea Start: 07-01-2023 take 1 tablet by mouth in the morning glipiZIDE (Glucotrol) 10 MG tablet Indications: Type 2 diabetes mellitus with hyperglycemia, without long-term current use of insulin ([facility]) Take 1 tablet (10 mg) by mouth in the morning. 90 tablet 3 07/01/2023 Active take 1 tablet by mouth once katheryn y glipiZIDE (GLUCOTROL XL) 5 mg 24 hr tablet Take 5 mg by mouth once daily. 0 Active Comment on above: Take 5 mg by mouth o nce daily. Multiple Vitamin (multivitamin) tablet (3 sources) [...] or chew. 60 capsule 2 09/10/2023 Active Completed/Discontinued Medications Medication Drug Class(es) Dates Sig (Normalized) Sig (Original) aspirin 81 mg delayed release oral tablet (12 sources) Platelet Aggregation Inhibitor, Nonsteroidal Anti-inflammatory Drug take 1 tablet by mouth once daily aspirin, enteric coated (ASPIRIN, ENTERIC COATED) 81 mg EC tablet Take 81 mg by mouth once daily. 0 Active Comment on above: Take 81 mg by mouth once daily. atropine sulfate 10 mg/ml ophthalmic solution (3 sources) Anticholinergic, Cholinergic Muscarinic Antagonist Start: 03-20-2023 take 1 drop(s) under the tongue once daily as needed atropine 1 % ophthalmic solution Indications: Sialorrhea 1(one) drop sublingual as needed daily for excessive drooling 15 mL 2 03/20/2023 Active Comment on above: 1(one) drop sublingu al as needed daily for excessive drooling Magnesium (12 sources) magnesium 250 MG tablet Take by mouth. 0 Active take 1 tablet by mouth once katheryn y Magnesium 250 mg tab Take 250 mg by mouth once daily. 0 Active Comment on above: Take 250 mg by mouth once daily. meloxicam 7.5 mg oral tablet (12 sources) Nonsteroidal Anti-inflammatory Drug Start: 9 End: 4 take 1 tablet by mouth once daily meloxicam (MOBIC) 7.5 mg tablet Take 7.5 mg by mouth once daily. 0 03/03/2019 Active Comment on above: Take 7.5 mg by mouth once daily. 24 hr metFORMIN hydrochloride 500 mg extended release oral tablet (12 sources) Biguanide Start: 9 metFORMIN ER (GLUCOPHAGE XR) 500 mg 24 [...] succinate 50 mg extended release oral tablet (12 sources) beta-Adrenergic Feng Start: 02-17-2019 metoprolol succinate [...] once daily. multivit-minerals/FA /lycopene (ONE-A-DAY MEN'S ORAL) (9 sources) multivit-mineral s/F A/lycopene (ONE-A-DAY MEN'S ORAL) Take by mouth once daily. 0 Active Comment on above: Take by mouth once d aily. ramipril 1.25 mg oral capsule (12 sources) Angiotensin Converting Enzyme Inhibitor Start: 02-17-2019 ramipril (ALTACE) 1.25 mg capsule 1.25 mg once daily. 0 02/17/2019 Active Comment on above: 1.25 mg once daily. rasagiline 1 mg oral tablet (13 sources) Monoamine Oxidase Inhibitor Start: 05-24-2023 take 1 tablet by mouth once daily rasagiline (AZILECT) 1 mg tab Take 1 tablet by mouth once daily. 90 tablet 3 05/24/2023 Active Start: 03-06-2023 take 1 tablet by esvin th once daily rasagiline (AZILECT) 1 mg tab [...] once daily. simvastatin 40 mg oral tablet (12 sources) HMG-CoA Reductase Inhibitor Start: simvastatin (ZOCOR) 40 mg tablet 40 mg daily at bedtime. 0 02/17/2019 Active Comment on above: 40 mg daily at bedti me. vitamin e 268 mg oral capsule (12 sources) take 1 capsule by mouth once daily Vitamin E, dl, acetate, (VITAMIN E) 400 unit capsule Take 400 Units by mouth once daily. 0 Active take 1 capsule by mouth in the m orning vitamin E 180 MG (400 UNIT) capsule Take 180 mg by mouth in the morning. 0 Active Comment on above: Take 400 Units by mo uth once daily. 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; Translations: [RESPIRATORY ASSISTANT CURRENT USE OF ASPIRIN] Onset: 12-15-2022 Episodic Other aftercare (1 source) [facility] (current) use of oral hypoglycemic drugs; Translations: [RESPIRATORY ASSISTANT USE ORAL HYPOGLYCEMIC DX] Onset: 12-15-2022 Episodic [...] [PSA]] Onset: 09-10-2023 09-10-2023 Episodic Parkinson`s disease (16 sources) Parkinson's disease; Translations: [Parkinson's disease] Onset: [...] te Episodic/Chronic Diseases of mouth; excluding dental (8 sources) Excessive salivation; Translations: [Disturbances of salivary secretion] Onset: 12-05-2022 Episodic Melanomas of skin (1 source) Personal history of malignant melanoma of skin; Translations: [PERSONAL HX MALIGNANT MELANOMA SKIN] Onset: 08-31-2022 Episodic Other upper respiratory disease (6 sources) Hypophonia; Translations: [Other voice and resonance disorders] Onset: 12-05-2022 Episodic Other upper respiratory disease (1 source) Other voice and resonance disorders; Translations: [Hypophonia] Onset: 12-05-2022 Episodic Residual codes; unclassified (9 sources) H/O: steroid therapy; Translations: [Personal history of systemic steroid therapy] Onset: 10-07-2019 10-07-2019 Episodic Unclassified (1 source) LOW BACK PAIN, UNSPECIFIED; Translations: [LOW BACK PAIN, UNSPECIFIED] Onset: 05-15-2022 Results Test Name Value Interpretation Reference Range Facility [facility] 06-14-2023 [facility] Office Visit (NRESFV) HERRERA MARTINEZ ([id number]) 1945 M Date Time Provider Department 06/14/23 3:00 PM DONALD ALBERTS NRESFV During your visit today, we recorded the following information about you: Pulse Blood pressure Weight Height 72/minute 118/61 76.1 kg 1.778 m Donald Alberts, DO 06/14/2023 3:34 PM Signed [facility] - FOLLOW UP EVALUATION Nathan Bolton MD [address] [facility] [id number] Herrera Martinez is a 77 year old male with a history of PD. He is seen with his . Interval History Since Last Visit: The patient had a swallowing test in late november 2022 - no issues other than more focus on swallowing was made to the patient. 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 1 fall in November o/w doing [...] Pulse 72 Ht (more content not included)... Normal [facility] 12-05-2022 [facility] Office Visit (NRESFV) HERRERA MARTINEZ ([id number]) 1945 M Date Time Provider Department 12/05/22 1:30 PM DONALD ALBERTSFV During your visit today, we recorded the following information about you: Pulse Blood pressure Weight 61/minute 127/72 74.8 kg Donald Alberts DO 12/05/2022 2:18 PM Signed [facility] - FOLLOW UP EVALUATION Donald Alberts [address] [place] [address] Nathan Bolton MD [address] [facility] [address] Herrera Martinez is a 77 year old male with a history of parkinsonism. He is seen with family. Interval History Since Last Visit: He is falling. There is more csvybxih-rz-zznk (FOG) - this is the cause of the falls. He has fallen while he is carrying things. Multitasking is a big issue. There were two falls in the post op period following cataract surgery. FOG seems to be worse in the PM. There is drooling at night. The mucous in the back of the throat is the issue. 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 The Sinemet is not [...] no evid (more content not included)... Normal [facility] CBC AUTO DIFFon 11-26-2022 BASO # 0.0 103/ul Normal 0.0-0.1 [facility] Comment on above: Performed By: #### C BC #### [facility] [address] [address] [address] Joaquín Rodriguez Basophils/100 WBC (Bld) 0.4 % Normal 0.2-2.0 [facility] Comment on above: Performed By: #### C BC #### [facility] [address] [address] [address] Joaquín Rodriguez EO # 0.1 103/ul Normal 0.0-0.7 [facility] Comment on above: Performed By: #### C BC #### [facility] [address] [address] [address] Joaquín Rodriguez Eosinophils/100 WBC (Bld) 2.6 % Normal 0.9-7.0 [facility] Comment on above: Performed By: #### C BC #### [facility] [address] [address] [address] Joaquín Rodriguez Erythrocyte distribution width (RBC) [Ratio] 13.2 % Normal 11.0-15.0 [facility] Comment on above: Performed By: #### C BC #### [facility] [address] [address] [address] Joaquín Rodriguez Hematocrit (Bld) [Volume fraction] 47.0 % Normal 42.0-54.0 [facility] Comment on above: Performed By: #### C BC #### [facility] [address] [address] [address] Joaquín Rodriguez Hemoglobin (Bld) [Mass/Vol] 15.9 g/dL Normal 14.0-18.0 [facility] Comment on above: Performed By: #### C BC #### [facility] [address] [address] [address] Joaquín Rodriguez IG # 0.01 10e3/ul Normal 0.00-0.03 [facility] Comment on above: Performed By: #### C BC #### [facility] [address] [place] [address] Dr. Joaquín Rodriguez IG % 0.2 % Normal 0.0-0.5 [facility] Comment on above: Performed By: #### C BC #### [facility] [address] [place] [address] Dr. Joaquín Rodriguez LYMPH # 1.5 103/ul Normal 1.2-3.8 [facility] Comment on above: Performed By: #### C BC #### [facility] [address] [place] [address] Dr. Joaquín Rodriguez Lymphocytes/100 WBC (Bld) 30.0 % Normal 20.5-60.0 [facility] Comment on above: Performed By: #### C BC #### [facility] [address] [place] [address] Dr. Joaquín Rodriguez MANUAL DIFF REQ NO Normal [facility] Comment on above: Performed By: #### C BC #### [facility] [address] [place] [address] Dr. Joaquín Rodriguez MCH (RBC) [Entitic mass] 30.8 pg Normal 25.9-34.0 [facility] Comment on above: Performed By: #### C BC #### [facility] [address] [place] [address] Dr. Joaquín Rodriguez MCHC (RBC) [Mass/Vol] 33.8 g/dL Normal 29.9-35.2 [facility] Comment on above: Performed By: #### C BC #### [facility] [address] [place] [address] Dr. Joaquín Rodriguez MCV (RBC) [Entitic vol] 90.9 fL Normal 80.0-94.0 [facility] Comment on above: Performed By: #### C BC #### [facility] [address] [place] [address] Dr. Joaquín Rodriguez MONO # 0.4 103/ul Normal 0.3-0.8 [facility] Comment on above: Performed By: #### C BC #### [facility] [address] [address] [address] Joaquín Rodriguez Monocytes/100 WBC (Bld) 7.5 % Normal 1.7-12.0 [facility] Comment on above: Performed By: #### C BC #### [facility] [address] [address] [address] Joaquín Rodriguez NEUT # 3.0 103/ul Normal 1.4-6.5 [facility] Comment on above: Performed By: #### C BC #### [facility] [address] [place] [address] Dr. Joaquín Rodriguez Neutrophils/100 WBC (Bld) 59.3 % Normal 43.0-75.0 [facility] Comment on above: Performed By: #### C BC #### [facility] [address] [place] [address] Dr. Joaquín Rodriguez Platelet mean volume (Bld) [Entitic vol] 11.2 fL Normal 9.5-13.5 [facility] Comment on above: Performed By: #### C BC #### [facility] [address] [place] [address] Dr. Joaquín Rodriguez PLT 128 103/ul Critically low 150-450 [facility] Comment on above: Performed By: #### C BC #### [facility] [address] [place] [address] Dr. Joaquín Rodriguez RBC 5.17 106/ul Normal 4.70-6.10 [facility] Comment on above: Performed By: #### C BC #### [facility] [address] [place] [address] Dr. Joaquín Rodriguez WBC 5.1 103/ul Normal 4.0-11.0 [facility] Comment on above: Performed By: #### C BC #### [facility] [address] [place] [address] Dr. Joaquín Rodriguez GLYCOHEMOGLOBIN A1Con 2022 ADA RECOMMENDATION SEE BELOW Normal [facility] Comment on above: Result Comment: ADA RECOMMENDED LIMIT 4.0 - 6.0 ADA THERAPEUTIC TARGET < 7.0 ACTION SUGGESTED > 7.0 Performed By: #### A 1C #### [facility] [address] [address] [address] Joaquín Rodriguez Glucose [Mass/Vol] 235 mg/dL Normal [facility] Comment on above: Performed By: #### A 1C #### [facility] [address] [address] [address] Joaquín Rodriguez HbA1c (Bld) [Mass fraction] 9.8 % Critically high 4.5-6.2 [facility] Comment on above: Performed By: #### A 1C #### [facility] [address] [address] [address] Joaquín Rodriguez LIPID PROFILEon 11-26-2022 CHOL-HDL RATIO NORM SEE BELOW Normal [facility] Comment on above: Result Comment: 3.3 - 4.4 LOW RISK 4.4 - 7.1 AVERAGE RISK 7.1 - 11.0 MODERATE RISK >11.0 HIGH RISK Performed By: #### L IVTEN, LIPID, BMP ####[facility] [address] [address]Dr[address] Joaquín Rodriguez Cholesterol [Mass/Vol] 145 mg/dL Normal <=200 [facility] Comment on above: Performed By: #### L IVER, LIPID, BMP ####[facility] [address] [address]Dr. Joaquín Rodriguez Cholesterol in HDL [Mass/Vol] 39 mg/dL Critically low 40-60 [facility] Comment on above: Performed By: #### L IVER, LIPID, BMP ####[facility] [address] [address]Dr. Joaquín Rodriguez Cholesterol in LDL [Mass/Vol] 70.8 mg/dL Normal [facility] Comment on above: Performed By: #### L IVER, LIPID, BMP ####[facility] [address] [address]Dr. Joaquín Rodriguez Cholesterol.total/Rukhsana sterol in HDL [Mass ratio] 3.7 {ratio} Normal [facility] Comment on above: Performed By: #### L IVER, LIPID, BMP ####[facility] [address] [address]Dr. Joaquín Rodriguez HDL NORMAL > or = 60 mg/dl - LOW CARDIOVASCULAR RISK <40 mg/dl - HIGH CARDIOVASCULAR RISK Normal [facility] Comment on above: Performed By: #### L ZENY LIPID, BMP ####[facility] [address] [address]Dr. Joaquín Rodriguez LDL CALC NORMAL SEE BELOW Normal [facility] Comment on above: Result Comment: <100 mg/dl OPTIMAL 100 - 129 mg/dl NEAR OR ABOVE OPTIMAL 130 - 159 mg/dl BORDERLINE HIGH 160 - 189 mg/dl HIGH >190 mg/dl VERY HIGH Performed By: #### Kayla MOURA LIPID, BMP ####[facility] [address] [address]Dr. Joaquín Rodriguez Triglyceride [Mass/Vol] 176 mg/dL Critically high <=150 [facility] Comment on above: Performed By: #### Kayla MOURA LIPID, BMP ####[facility] [address] [address]Dr. Joaquín Rodriguez VLDL CALC 35.2 mg/dL Normal [facility] Comment on above: Performed By: #### L ZENY LIPID, BMP ####[facility] [address] [address]Dr. Joaquín Rodriguez LIVER PROFILEon 11-26-2022 Albumin [Mass/Vol] 3.9 g/dL Normal 3.4-5.0 [facility] Comment on above: Performed By: #### L IVTEN, LIPID, BMP ####[facility] [address] [address]Dr. Joaquín Rodriguez Albumin/Globulin [Mass ratio] 1.0 {ratio} Normal [facility] Comment on above: Performed By: #### L IVTEN, LIPID, BMP ####[facility] [address] [address]Dr. Nailakristan Michael ALP [Catalytic activity/Vol] 91 U/L Normal 46-116 [facility] Comment on above: Performed By: #### L IVTEN, LIPID, BMP ####[facility] [address] [address]Dr. Joaquín Rodriguez ALT [Catalytic activity/Vol] 15 U/L Critically low 16-63 [facility] Comment on above: Performed By: #### L IVER, LIPID, BMP ####[facility] [address] [address]Dr. Joaquín Rodriguez AST [Catalytic activity/Vol] 29 U/L Normal 15-37 [facility] Comment on above: Performed By: #### L IVER, LIPID, BMP ####[facility] [address] [address]Dr. Joaquín Rodriguez BILI, CONJUGATED 0.2 mg/dL Normal 0.0-0.2 [facility] Comment on above: Performed By: #### L IVER, LIPID, BMP ####[facility] [address] [address]Dr. Joaquín Rodriguez Bilirubin [Mass/Vol] 0.7 mg/dL Normal 0.2-1.0 [facility] Comment on above: Performed By: #### L IVER, LIPID, BMP ####[facility] [address] [address]Dr. Joaquín Rodriguez Globulin (S) [Mass/Vol] 3.8 g/dL Normal [facility] Comment on above: Performed By: #### L IVER, LIPID, BMP ####[facility] [address] [address]Dr. Joaquín Rodriguez Protein [Mass/Vol] 7.7 g/dL Normal 6.4-8.2 [facility] Comment on above: Performed By: #### L IVER, LIPID, BMP ####[facility] [address] [address]Dr. Joaquín Rodriguez MICROALBUMIN, RAND URon 05-0 -2022 mALB 3.5 mg/L Normal <=30.0 [facility] Comment on above: Performed By: #### M ALBR #### [facility] [address] [address] [address] Joaquín Rodriguez PROF CHEM 8 (BAS METB)on Anion gap [Moles/Vol] 10.8 mmol/L Normal Th [facility] Comment on above: Performed By: #### L IVER LIPID, BMP ####[facility] [address] [address]Dr. Joaquín Rodriguez Calcium [Mass/Vol] 9.1 mg/dL Normal 8.5-10.1 [facility] Comment on above: Performed By: #### L IVTEN, LIPID, BMP ####[facility] [address] [address]Dr. Joaquín Rodriguez Chloride [Moles/Vol] 103 mmol/L Normal 98-107 [facility] Comment on above: Performed By: #### L IVTEN LIPID, BMP ####[facility] [address] [address]Dr. Joaquín Rodriguez CO2 [Moles/Vol] 29.7 mmol/L Normal 21.0-32.0 [facility] Comment on above: Performed By: #### L IVER, LIPID, BMP ####[facility] [address] [address]Dr. Joaquín Rodriguez Creatinine [Mass/Vol] 0.97 mg/dL Normal 0.70-1.30 [facility] Comment on above: Performed By: #### L IVTEN, LIPID, BMP ####[facility] [address] [address]Dr. Nailakristan Michael EGFR-AF ZAMBIAN >60 Normal >=60 [facility] Comment on above: Performed By: #### L IVER, LIPID, BMP ####[facility] [address] [address]Dr. Joaquín Rodriguez EGFR-NON AF ZAMBIAN >60 Normal >=60 [facility] Comment on above: Performed By: #### L IVER, LIPID, BMP ####[facility] [address] [address]Dr. Joaquín Rodriguez Glucose [Mass/Vol] 261 mg/dL Critically high 74-106 [facility] Comment on above: Performed By: #### L IVTEN, LIPID, BMP ####[facility] [address] [address]Dr. Joaquín Rodriguez Potassium [Moles/Vol] 4.5 mmol/L Normal 3.5-5.1 [facility] Comment on above: Performed By: #### L IVER, LIPID, BMP ####[facility] [address] [address]Dr. Joaquín Rodriguez Sodium [Moles/Vol] 139 mmol/L Normal 136-145 [facility] Comment on above: Performed By: #### L IVER, LIPID, BMP ####[facility] [address] [address]Dr. Joaquín Rodriguez Urea nitrogen [Mass/Vol] 16.0 mg/dL Normal 7.0-18.0 [facility] Comment on above: Performed By: #### L IVER, LIPID, BMP ####[facility] [address] [address]Dr. Joaquín Rodriguez Urea nitrogen/Creatinine [Mass ratio] 16.5 mg/mg Normal [facility] Comment on above: Performed By: #### L IVER, LIPID, BMP ####[facility] [address] [address]Dr. Joaquín Rodriguez [facility] HERRERA MARTINEZ ([id number]) 1945 M Date Time Provider Department 06/22/22 DNOALD ALBERTS [id number] During your visit today, we recorded the [...] Known Allergies) Date Reviewed: 06/06/2022 Reviewed by: Debby Ortiz MA - Fully Assessed Reason for [...] steroid injection [Z92.241] 10/07/2019 PD (Parkinson's disease) (HCC) [G20] 10/07/2019 Encounter Status:Closed by DELL DWYER on 06/22/22 Normal [facility] MRI BRAIN WO IVCONon 022 MRI BRAIN WO IVCON * * *Final Report* * * DATE OF EXAM: Jun 20 2022 1:26PM LNM 0294 - MRI BRAIN WO IVCON / [...] infarction, intracranial hemorrhage or intracranial mass lesion. Transmission Engineer: BIRGIT Transcribe Date/Time: Jun 20 2022 1:55P Dictated by : ANTHONY JONES MD This examination was interpreted and the report reviewed and electronically signed by: ANTHONY JONES MD on Jun 20 2022 2:02PM EST [id number] CN Normal [facility] POINT OF CARE GLUCOSEon 10-2 Glucose [Mass/Vol] 180 mg/dL Critically high 74-106 T [facility] Comment on above: Performed By: #### P OCGLUC ####[facility] [address] [place], [place] [address]Dr. Joaquín Rodriguez Covid-19 PCR (CVDTB)on 04-29 SARS-CoV-2 (COVID-19) RNA JAS+probe Ql (Unsp spec) Not detected Normal NOT DETECTED [facility] Comment on above: Result Comment: This test is not yet approved or cleared by the [place] FDA. When there are no FDA-approved or cleared tests available, and other criteria are met, FDA can make tests available under an emergency access mechanism called an Emergency Use Authorization (EUA). The EUA for this test is supported by the [place] of Health and Human Service's (HHS's) declaration [...] consistent with SARS-CoV-2. Performed By: #### C VDTB #### [facility] [address] [place] [address] Dr. Joaquín Rodriguez GLYCOHEMOGLOBIN A1Con 2021 ADA RECOMMENDATION SEE BELOW Normal [facility] Comment on above: Result Comment: ADA RECOMMENDED LIMIT 4.0 - 6.0 ADA THERAPEUTIC TARGET < 7.0 ACTION SUGGESTED > 7.0 Performed By: #### A 1C #### [facility] [address] [place] [address] Dr. Joaquín Rodriguez Glucose [Mass/Vol] 212 mg/dL Normal [facility] Comment on above: Performed By: #### A 1C #### [facility] [address] [place] [address] Dr. Joaquín Rodriguez HbA1c (Bld) [Mass fraction] 9.0 % Critically high 4.5-6.2 [facility] Comment on above: Performed By: #### A 1C #### [facility] [address] [place], [place] [address] Dr. Joaquín Rodriguez Auth for Release of Medical Recordson 11-21-2020 Auth for Release of Medical Records [id number] #1.00CD:127 Normal Ag[facility] Dermatopathologyon [address] [facility] Dermatopathology Laboratory [address] [place] [id number] DERMATOPATHOLOGY REPORT Name:HERRERA MARTINEZ [facility]. Rec #. [id number] Location: [facility] Date of Procedure: 03/22/2020 Race: Date [...] None Electronically Signed Out By NADER GALO MD/[facility] By the signature on this report, the individual or group listed as making the Final Interpretation/Diagn osis certifies that they have reviewed this case. Clinical History: Malignant melanoma. Excision. ([place] office) Specimens Submitted As: A: SKIN, RIGHT SUPERIOR LATERAL UPPER BACK Gross Description: Received in formalin is one lozano-brown piece of skin measuring 56 x 21 x 6 mm. The specimen is inked and embedded in toto in four blocks. The tips are in Block 1. z/03/23/[address] [facility] Comment on above: Performed By: #### D #### Dermatopathology Dermatopathologyon 0 Dermatopathology Pathologist: NADER GALO MD Date of Procedure: 02/10/2020 Date Received: 02/10/2020 Submitting Physician: SAÚL JHAVERI MD Location: [facility] Copy To/Referring/Attendi ng: HENRIK WHALEN DO FINAL DIAGNOSIS 4 SLIDES, DERMATOPATHOLOGY LABORATORY [facility], #[id number] (BX: 01/06/2020) SKIN, RIGHT SUPERIOR LATERAL UPPER [...] melanocytes. The melanocytes stain with antibodies against Wilmore-1 and SOX-10. The deep margin focally transects the atypical melanocytes. Electronically Signed Out by NADER GALO M.D. CANCER SUMMARY REPORT A. 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 SCAR Specimens Submitted As: A: 4 SLIDES, DERMATOPATHOLOGY LABORATORY [facility], #[id number] (BX: 01/06/2020) Gross Description: Received for consultation from Dermatopathology Laboratory [facility] are four slides labeled [id number] (BX: 01/06/2020) along with the corresponding pathology report. Slide/Block Description 4 SLIDES, [id number]. Keep Slides: N Slides Returned: N Personal Consult: N Normal [facility] Comment on above: Performed By: #### D #### Dermatopathology Vital Signs Date Time Vital Sign Value Performing Clinician Davei yeyo 09-10-2023 11:47-0500 Body height 180.3 cm Nathan Bolton MD Work Phone: [facility] 09-10-2023 11:47-0500 Body mass index (BMI) [Ratio] 23.01 kg/m2 Nathan Bolton MD Work Phone: [facility] 09-10-2023 11:47-0500 Body temperature 97.5 [degF] Nathan Bolton MD Work Phone: [facility] 09-10-2023 11:47-0500 Body weight 74.84 kg Nathan Bolton MD Work Phone: [facility] 09-10-2023 11:47-0500 Diastolic blood pressure 70 mm[Hg] Nathan Bolton MD Work Phone: [facility] 09-10-2023 11:47-0500 Heart rate 89 /min Nathan Bolton MD Work Phone: [facility] 09-10-2023 11:47-0500 SaO2% (BldA) [Mass fraction] 99 % Nathan Bolton MD Work Phone: [facility] 09-10-2023 11:47-0500 Systolic blood pressure 130 mm[Hg] Nathan Bloton MD Work Phone: [facility] 12-05-2022 13:27-0400 Body weight 74.84 kg Donald Alberts DO Work Phone: [facility] 12-05-2022 13:27-0400 Diastolic blood pressure 72 mm[Hg] Donald Alberts DO Work Phone: [facility] 12-05-2022 13:27-0400 Heart rate 61 /min Donald Alberts DO Work Phone: [facility] 12-05-2022 13:27-0400 SaO2% (BldA) [Mass fraction] 99 % Donald Alberts DO Work Phone: [facility] 12-05-2022 13:27-0400 Systolic blood pressure 127 mm[Hg] Donald Alberts DO Work Phone: [facility] 06-06-2022 16:21-0500 Body height 180.3 cm Donald Alberts DO Work Phone: [facility] 06-06-2022 16:21-0500 Body weight 74.39 kg Donald Alberts DO Work Phone: [facility] 06-06-2022 16:21-0500 Diastolic blood pressure 75 mm[Hg] Donald Mishraoliviaang DO Work Phone: [facility] 06-06-2022 16:21-0500 Heart rate 69 /min Donald Mishraanastaciokee DO Work Phone: [facility] 06-06-2022 16:21-0500 SaO2% (BldA) [Mass fraction] 100 % Donald Mishraanastacioberthacecy DO Work Phone: [facility] 06-06-2022 16:21-0500 Systolic blood pressure 135 mm[Hg] Donald Aristeo DO Work Phone: [facility] Encounters Encounter Date Encounter Type Care Provider Facility Start: 12-02-2023 End: 12-02-2023 ambulatory NATHAN BOLTON Not Available Start: 11-03-2023 Refill Donald Anastacio Rosasravanthi morenita DO Work Phone: Neurology Comment on above: Refill Request Start: 09-10-2023 Husam Bolton MD Work Phone: [...] Start: 06-14-2023 End: 06-14-2023 ambulatory DONALD ALBERTS Facility:[facility] Start: 03-16-2023 ambulatory Donald delgadomanishrene DO Work Phone: Neurology Comment on above: Botox for excessive saliva for Herrera Juan Start: 02-19-2023 Refill Donald xavier DO Work Phone: Neurology Comment on above: Refill Request Start: 12-26-2022 End: 12-26-[address] DOCTOR NICOLE Facility:[facility] Start: 12-13-2022 End: 12-13-2022 ambulatory JOANNE TALAVERA . Facility:[facility] Start: 12-05-2022 End: 12-05-2022 ambulatory DONALD ALBERTS Facility:[facility] Start: 12-05-2022 End: 12-05-2022 Patient encounter procedure [...] Refill Donald xavier DO Work Phone: [facility] Comment on above: Refill Request Start: 08-30-2022 End: 08-30-2022 ambulatory SANIYA GARZON Facility:[facility] Start: 06-27-2022 End: 06-28-[address] NIKHIL GUAJARDO . Facility:[facility] Start: 06-22-2022 Telephone encounter Donald gomez DO Work Phone: [facility] Comment on above: Results (MRI NL) Start: 06-20-2022 End: 06-20-2022 ambulatory DONALD ALBERTS Facility:[facility] Start: 06-06-2022 End: 06-06-2022 Patient encounter procedure Donald Alberts DO Work Phone: Neurology Comment on above: PD (Parkinson's dise ase) (HCC) (Primary Dx); Dysarthria Start: 05-23-2022 Encounter for preprocedural laboratory examination DR NIKHIL GUAJARDO . [facility] Start: 05-22-2022 End: 05-22-[address] [...] Author Start: 06-20-2024 DIABETES SCREEN DIABETES SCREEN [facility] Start: 06-20-2024 [facility] Start: 12-05-2023 End: 12-05-2023 Patient encounter procedure 12/05/2023 2:45 PM EDT Procedure Visit [facility] [address] [place] [id number] Ayaz Santo DPM [address] [place] [address] [facility] Start: 12-02-2023 End: 12-02-2023 Patient encounter procedure 12/02/2023 10:45 AM EDT Office Visit [facility] [address] [place] [phone] Nathan Bolton MD [address] [place] [phone] [facility] Start: 09-24-2023 Hemoglobin A1c measurement Mairtza betes: Hemoglobin A1C [facility] Start: 09-10-2023 End: 09-10-2024 RF Upper gastrointestinal tract and Small bowel Single view W contrast PO FL upper GI double contrast w KUB Imaging Routine Epigastric abdominal pain Expected: 09/10/2023, Expires: 09/10/2024 [facility] Comment on above: Expected: 09/10/2023 , Expires: 09/10/2024 Start: 09-10-2023 End: 09-10-2024 US Gallbladder US gallbladder Imaging Routine Epigastric abdominal pain Expected: 09/10/2023, Expires: 09/10/2024 [facility] Work Phone: Comment on above: Expected: 09/10/2023 , Expires: 09/10/2024 Start: 09-10-2023 End: 09-10-2023 Patient encounter procedure 09/10/2023 11:45 AM EST Office Visit [facility] [address] [place] [phone] Nathan Bolton MD [address] [place] [phone] Arrived [facility] Comment on above: Arrived Start: 07-29-2023 Advance Directive Discussion Advance Directive Discussion [facility] Start: 07-29-2023 Behavioral Health Screening Behavioral Health Screening [facility] Start: 03-29-2023 Covid-19 Vaccine ( season) Covid-19 Vaccine ( season) [facility] Start: 03-29-2023 Influenza vaccination INFLUENZA (#1) [facility] Start: 08-26-2022 COVID-19 VACCINE (6 - Pfizer series) COVID-19 VACCINE (6 - Pfizer series) [facility] Start: 07-29-2022 ADVANCE DIRECTIVE DISCUSSION ADVANCE DIRECTIVE DISCUSSION [facility] Start: 07-29-2022 DEPRESSION ASSESSMENT DEPRESSION ASS ESSMENT [facility] Start: 07-29-2021 ADVANCE DIRECTIVE DISCUSSION ADVANCE DIRECTIVE DISCUSSION [facility] Start: 07-29-2021 DEPRESSION ASSESSMENT DEPRESSION ASS ESSMENT [facility] Start: 05-28-2017 Urine microalbumin profile DTa P,Tdap,Td Vaccine (1 - Tdap) [facility] Start: 2011 PNEUMOCOCCAL: 65+ (1 - PCV) PNEUMOCOCCAL: 65+ (1 - PCV) [facility] Start: 2006 RSV Vaccine (1 - 1-d ose 60+ series) RSV Vaccine (1 - 1-dose 60+ series) [facility] Start: 1996 SHINGRIX VACCINE (1 of 2) FRIAS GRIX VACCINE (1 of 2) [facility] Start: 1991 COLOGUARD (FIT-DNA) COLOGUARD (FIT-D NA) [facility] Start: 1991 Colonoscopy COLONOSCOPY [facility] Start: 1991 COLORECTAL CANCER SCREENING COLORECTAL CANCER SCREENING [facility] Start: [address] COLONOGRAPHY [facility] Start: 1991 FECAL OCCULT BLOOD FECAL OCCULT BLOO D [facility] Start: 1991 SIGMOIDOSCOPY SIGMOIDOSCOPY [facility] Start: 1981 LIPID SCREEN LIPID SCREEN [facility] Start: 1965 Urine microalbumin profile DTAP,TDAP ,TD (1 - Tdap) [facility] Start: 1965 Urine screening for protein Diabetes: Urine Protein Screening [facility] Start: 1964 HEPATITIS C SCREENING HEPATITIS C [facility] Start: 1964 Hepatitis C screening Hepatitis C [facility] Start: 1956 Glaucoma screening Diabetes: R etinopathy Screening [facility] Start: 1946 Medicare Annual Well ness (AWV) Medicare Annual Wellness (AWV) [facility] End: 07-06-2023 Mri brain brain stem w/o contrast material MRI BRAIN WO IVCON Radiology Routine PD (Parkinson's disease) (HCC) Dysarthria 1 Occurrences starting 06/06/2022 until 07/06/2023 [facility] Work Phone: Comment on above: 1 Occurrences starti ng 06/06/2022 until 07/06/2023 [facility] Immunization Date Immunization Notes Care Provider Fa tania 04-22-2023 Influenza, Seasonal, Quadrivalent, Adjuvanted Nathan Bolton MD Work Phone: [facility] 04-23-2022 Influenza, High-dose Seasonal, Quadrivalent, Preservative Free Nathan Bolton MD Work Phone: [facility] 04-27-2021 Influenza, Seasonal, Quadrivalent, Adjuvanted Nathan Bolton MD Work Phone: [facility] 05-05-2020 Influenza, Seasonal, Quadrivalent, Adjuvanted Nathan Bolton MD Work Phone: [facility] 05-18-2019 Influenza, injectabl e, Madin Coco Canine Kidney, preservative free, quadrivalent Nathan Bolton MD Work Phone: [facility] 11-20-2018 zoster vaccine recombinant Jade Bolton MD Work Phone: [facility] 05-13-2018 Seasonal trivalent influenza vaccine, adjuvanted, preservative free Nathan Bolton MD Work Phone: [facility] 02-17-2018 zoster vaccine recombinant Jade Bolton MD Work Phone: [facility] 09-06-2017 pneumococcal polysaccharide vaccine, 23 valent Nathan Bolton MD Work Phone: [facility] 05-27-2017 tetanus and diphther ia toxoids, adsorbed, preservative free, for adult use (5 Lf of tetanus toxoid and 2 Lf of diphtheria toxoid) Nathan Bolton MD Work Phone: [facility] 04-29-2017 influenza, high dose seasonal, preservative-free Nathan Bolton MD Work Phone: [facility] 05-30-2016 influenza, high dose seasonal, preservative-free Nathan Bolton MD Work Phone: [facility] 05-30-2016 pneumococcal conjuga te vaccine, 13 valent Nathan Bolton MD Work Phone: [facility] 06-08-2015 influenza, high dose seasonal, preservative-free Nathan Bolton MD Work Phone: [facility] Payers Date Payer Category Payer Medicare [id number] 1958 Medicare [id number] 1945 Unknown [id number] 2.16.84 [id number] 1945 Unknown [id number] 2.16.84 [id number] 1945 Unknown [id number] 2.16.84 [id number] 1946 Unknown [id number] 2.16.84 [id number] 1946 Unknown [id number] 2.16.84 [id number] 1946 Unknown [id number] 2.16.84 [id number] 1946 Unknown [id number] 2.16.84 [id number] 1946 Unknown [id number] 2.16.84 [id number] 1946 Unknown [id number] 2.16.84 [id number] 1946 Unknown [id number] 2.16.84 [id number] 1946 Unknown [id number] 2.16.84 [id number] 1946 Unknown [id number] 2.16.84 [id number] 1946 Unknown [id number] 2.16.84 [id number] 1946 Unknown [id number] 2.16.84 [id number] Social History Date Type Detail Facility Start: 03-27-2019 End: 12-05-2022 Tobacco smoking status ARIS Never smoked tobacco [facility] Start: 03-27-2019 End: 12-05-2022 Tobacco use and exposure Smokeless tobacco non-user [facility] Start: 10-14-2020 End: 06-14-2023 Alcohol intake Lifetime non-drinker (finding) [facility] Start: 03-27-2019 History SDOH Alcohol Frequency 1 [facility] Start: 1945 Sex Assigned At Male [facility] Start: 05-27-2022 End: 06-06-2022 Exposure to SARS-CoV-2 (event) Not sure [facility] Start: 12-05-2022 End: 06-10-2023 History of Social function [facility] Start: 12-05-2022 End: 06-10-2023 Tobacco use panel [facility] Adult Depression Screening Assessment 0 [facility] Start: 03-30-2019 Gender identity Identifies as male gender (finding) [facility] How often to you hav e a drink containing alcohol? Never [facility] Within the last year , have you [...] contrast w KUB documented in this encounter [facility] 06-14-2023 Note HNO ID: [id number] Author: Donald Alberts, DO Service: ? Author Type: Physician Type: Progress Notes Filed: 06/14/2023 3:34 PM Note Text: [facility] - FOLLOW UP EVALUATION Nathan Bolton MD [address] [facility] [address] Herrera Martinez is a 77 year old male with a history of PD. He is seen with his . Interval History Since Last Visit: The patient had a swallowing test in late november 2022 - no issues other than more focus on swallowing was made to the patient. 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 1 fall in November o/w doing [...] Cardiac: Regular r (more content not included)... [facility] 02-20-2023 Miscellaneous Notes Last appt 12/05/22 MTG Requested Prescriptions Pending Prescriptions Disp Refills carbidopa-levodopa (SINEMET) 25-100 mg per tablet 540 tablet 3 Sig: Take 1.5 tablets by mouth four times daily. documented in this encounter [facility] 12-13-2022 Note PROCEDURE: XR HIP RT 2 [...] authenticated by: AYAZ NICOLE Date: 2022-12-13 09:47 [facility] 12-13-2022 Note PROCEDURE: XR FOREAR M [...] authenticated by: AYAZ NICOLE Date: 2022-12-13 09:43 [facility] 12-13-2022 Note PROCEDURE: XR FOREAR M [...] authenticated by: AYAZ NICOLE Date: 2022-12-13 09:43 [facility] 12-05-2022 Note HNO ID: [id number] Author: Donald Alberts, DO Service: ? Author Type: Physician Type: Progress Notes Filed: 12/05/2022 2:18 PM Note Text: [facility] - FOLLOW UP EVALUATION Donald Alberts [address] [facility] [address] Nathan Bolton MD [address] [facility] [address] Herrera Martinez is a 77 year old male with a history of parkinsonism. He is seen with family. Interval History Since Last Visit: He is falling. There is more tcqgneot-yj-gkwo (FOG) - this is the cause of the falls. He has fallen while he is carrying things. Multitasking is a big issue. There were two falls in the post op period following cataract surgery. FOG seems to be worse in the PM. There is drooling at night. The mucous in the back of the throat is the issue. 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 The Sinemet is not [...] Right pathological reflex (more content not included)... [facility] 12-05-2022 Instructions Donald Alberts DO - 12/05/2022 2:12 PM EDT Medications 8A 1130A 3P 6P Sinemet 25/100 1.5 1.5 1.5 1.5 Azilect 1mg 1 0 0 0 documented in this encounter [facility] 12-05-2022 History of Present illness Narrative [facility] - FOLLOW UP EVALUATION Donald T Aristeo [address] [facility] [address] Nathan Bolton MD [address] [facility] [address] Herrera Martinez is a 77 year old male with a history of parkinsonism. He is seen with family. Interval History Since Last Visit: He is falling. There is more ibfcvaxx-do-rvzc (FOG) - this is the cause of the falls. He has fallen while he is carrying things. Multitasking is a big issue. There were two falls in the post op period following cataract surgery. FOG seems to be worse in the PM. There is drooling at night. The mucous in the back of the throat is the issue. 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 The Sinemet is not [...] Left pathological reflexes: Kirstin's absent. Coordination Right: Koswms-hb-vjyi normal. Rapid alternating movement normal.Left: Psemdj-uz-gewr normal. Rapid alternating movement normal. Gait Casual [...] addressed during this visit: Pd (parkinson's disease) ([facility]) (primary encounter diagnosis) Sialorrhea Hypophonia Plan: Continue current antiparkinsonian regimen as dosed other than increasing Sinemet 2. PA for botulinum toxin (Myobloc) injections 3. D[employer] WORKER locally for swallow evaluation Return in about 6 months (around 06/07/2023). Medical decision making was high complexity due to patient's, multiple symptoms, advancing disease The total time spent on the patient care was 30 minutes with greater than 50% of the time spent on counseling regarding preparing to see the patient, unwy-tl-rrmz patient care, completing clinical documentation, obtaining and/or reviewing separately obtained history, performing a medically appropriate examination, counseling and educating the patient/family/caregiver, ordering medications, tests, or procedures, communicating with other HCPs (not separately reported), communicating results to the patient/family/caregiver, and care coordination (not separately reported) Donald Alberts, Senior Staff Neurologist - [facility] Diagnosis: Sialorrhea (K11.7) Current Examination: There is [...] EMG guidance: Yes documented in this encounter [facility] 09-27-2022 Note OPERATIVE NOTE OPERATION DATE: 09/27/2022 [...] ensuring mobility, phacoemulsification was performed in a suaqmvh-jvf-yivgff-type fashion. After all nuclear material had been [...] the following day for postoperative care. [facility] 09-27-2022 Note PREOPERATIVE HISTORY AND PHYSICAL [...] go forward with his elective procedure. [facility] 09-10-2022 Miscellaneous Notes Requested Prescriptions Pending Prescriptions Disp Refills rasagiline (AZILECT) 1 mg tab 90 tablet 1 Sig: Take 1 tablet by mouth once daily. documented in this encounter [facility] 08-30-2022 Note OPERATIVE NOTE OPERATION DATE: 08/30/2022 [...] ensuring mobility, phacoemulsification was performed in a rrcuhls-xhr-jtnlpn-type fashion. After all nuclear material had been [...] the following day for postoperative care. [facility] 08-30-2022 Note HISTORY AND PHYSICAL EXAMINATION [...] go forward with his elective procedure. [facility] 06-27-2022 Note CONSULTATION CONSULTATION DATE: 06/27/2022 [...] follow up on a p.r.n. basis. [facility] 06-22-2022 Miscellaneous Notes I spoke with Mr. Martinez to inform her MRI for Herrera is normal per Dr. Patino. ----- Message from Juan Patino MD sent at 06/20/2022 2:51 PM EST ----- Regarding: MRI results Suzanne, I am covering for Dr. Alberts today. Please let this patient know that his MRI results came back normal. Thanks, Dr. Patino documented in this encounter [facility] 06-20-2022 Note HNO ID: [id number] Author: RT Elo(R) Service: Radiology Author Type: [...] RT Elo(R) June 20, 2022 1:15 PM [facility] 06-06-2022 History of Present illness Narrative [facility] - FOLLOW UP EVALUATION Nathan Bolton MD [address] [facility] [address] Herrera Martinez is a 76 year old male with a history of PD. He is seen with his . Interval History Since Last Visit: The patient notes that he is more clumsy - the speech has worsened over the last couple of weeks. the walking has had more oqxruvwc-rp-deen (FOG). No falls are noted. The notes [...] Left pathological reflexes: Kirstin's absent. Coordination Right: Dcmbre-gl-fqev normal. Rapid alternating movement normal. Left: Srrspv-ar-fouk normal. Rapid alternating movement normal. Gait Casual [...] Pd (parkinson's disease) (hcc) (primary encounter diagnosis) Dysarthria Plan: Continue current antiparkinsonian regimen as dosed. MRI brain for dysarthria Medical decision making was high complexity due to patient's, multiple symptoms, advancing disease The total time spent on the patient care was 25 minutes with greater than 50% of the time spent on counseling regarding preparing to see the patient, rutr-ld-kcgj patient care, completing clinical documentation, obtaining and/or reviewing separately obtained history, performing a medically appropriate examination, counseling and educating the patient/family/caregiver, ordering medications, tests, or procedures, and communicating results to the patient/family/caregiver. I tried to answer all of the patient's questions and concerns during this visit. Donald Alberts DO Senior Staff Neurologist - [facility] documented in this encounter [facility] 05-15-2022 Note CONSULTATION CONSULTATION DATE: 05/15/2022 CHIEF COMPLAINT: Low back pain, posterior thigh pain. HISTORY OF PRESENT ILLNESS: This is a very pleasant, 76-year-old gentleman who is accompanied by his . The patient suffers from Parkinson's. The patient is being treated at [facility] with regards to this. The patient reports [...] patient currently takes Mobic 7.5 daily, Tylenol [id number]. The patient also is on Sinemet, metformin, [...] mg IM. CC: Nathan Bolton M.D. [facility] Evaluation note Diagnosis PD (Parkinson's disease) (HCC)- Primary Paralysis agitans Dysarthria [facility] PD (Parkinson's disease) (HCC)- Primary Paralysis agitans Sialorrhea Disturbance of salivary secretion Hypophonia Other voice and resonance disorders [facility] PD (Parkinson's disease) (HCC) Paralysis agitans [facility] Sialorrhea- Primary Disturbance of salivary secretion [facility] Diagnosis Epigastric abdominal pain- Primary Abdominal [...] HIGH MDM 60-74 MINUTES Donald Alberts, DO [address] [place] [address] Referral ID Status Reason Start Date Expiration Date V isits Requested Visits Authorized [id number] Pending Review 12/04/2022 03/04/2023 1 1 Specialty Diagnoses / Procedures Referred By El chaves Referred To Contact MR IMAGING Diagnoses PD (Parkinson's disease) (HCC) Dysarthria Procedures MRI BRAIN WO IVCON MRI BRAIN BRAIN STEM W/O CONTRAST MATERIAL Donald Alberts, DO [address] [place] [id number] Mr Imaging Referral ID Status Reason Start Date Expiration Date Visits Requested Visits Authorized [id number] Authorized Auto-Generat ed Referral 06/06/2022 07/06/2023 1 1 Specialty Diagnoses / Procedures Referred By El chaves Referred To Contact Diagnoses PD (Parkinson's disease) (HCC) Procedures PROVIDER ORDERED FOLLOW UP OFFICE/OUTPATIENT NEW HIGH MDM 60-74 MINUTES Donald Alberts, DO [address] [place] [id number] Referral ID Status Reason Start Date Expiration Date V isits Requested Visits Authorized [id number] Pending Review 06/07/2023 09/05/2023 1 1 Specialty Diagnoses / Procedures Referred By El chaves Referred To Contact [facility] Diagnoses PD (Parkinson's disease) (HCC) Sialorrhea Hypophonia Procedures CONSULT TO SPEECH THERAPY OFFICE/OUTPATIENT NEW HIGH MDM 60-74 MINUTES Donald Alberts, DO [address] [place] [address] [facility] [place] [address] [place] [address] Referral ID Status Reason Start Date Expiration Date Visits Requested Visits Authorized [id number] Pending Review Auto-Generat ed Referral 12/05/2022 12/05/2023 1 1 Additional Source Comments (unrecognized sect ion and content) No Status Records FoundNo Status Records FoundNo Status Records FoundNo Status Records FoundNo Status Records FoundNo Status Records Found INFORMATION SOURCE (unrecogn ized section and content) DATE CREATED AUTHOR 03/26/2020 [facility] DATE CREATED AUTHOR AUTHOR'S ORGANIZ ATION 11/22/2020 [facility] ical Center DATE CREATED AUTHOR AUTHOR'S ORGANIZ ATION 06/22/2022 [facility] DATE CREATED AUTHOR AUTHOR'S ORGANIZ ATION 01/04/2023 [facility] DATE CREATED AUTHOR AUTHOR'S ORGANIZ ATION 06/17/2023 [facility] DATE CREATED AUTHOR AUTHOR'S ORGANIZ ATION 12/02/2023 [facility] EPIC Source Comments (unrecognize d section and content) In the event this informatio n is protected by the Federal Confidentiality of Alcohol and Drug Abuse Patient Records regulations: The Federal rules restrict any use of the information to criminally investigate or prosecute any alcohol or drug abuse patient.[facility] the event this information is protected by the Federal Confidentiality of Alcohol and Drug Abuse Patient Records regulations: The Federal rules restrict any use of the information to criminally investigate or prosecute any alcohol or drug abuse patient.[facility] the event this information is protected by the Federal Confidentiality of Alcohol and Drug Abuse Patient Records regulations: The Federal rules restrict any use of the information to criminally investigate or prosecute any alcohol or drug abuse patient.[facility] the event this information is protected by the Federal Confidentiality of Alcohol and Drug Abuse Patient Records regulations: The Federal rules restrict any use of the information to criminally investigate or prosecute any alcohol or drug abuse patient.[facility] the event this information is protected by the Federal Confidentiality of Alcohol and Drug Abuse Patient Records regulations: The Federal rules restrict any use of the information to criminally investigate or prosecute any alcohol or drug abuse patient.[facility] the event this information is protected by the Federal Confidentiality of Alcohol and Drug Abuse Patient Records regulations: The Federal rules restrict any use of the information to criminally investigate or prosecute any alcohol or drug abuse patient.[facility] the event this information is protected by the Federal Confidentiality of Alcohol and Drug Abuse Patient Records regulations: The Federal rules restrict any use of the information to criminally investigate or prosecute any alcohol or drug abuse patient.[facility] the event this information is protected by the Federal Confidentiality of Alcohol and Drug Abuse Patient Records regulations: The Federal rules restrict any use of the information to criminally investigate or prosecute any alcohol or drug abuse patient.[facility] the event this information is protected by the Federal Confidentiality of Alcohol and Drug Abuse Patient Records regulations: The Federal rules restrict any use of the information to criminally investigate or prosecute any alcohol or drug abuse patient.[facility] Reason for Visit (unrecogniz ed section and [...] HIGH MDM 60-74 MINUTES Donald Alberts, DO [address] [place] [address] Referral ID Status Reason Start Date Expiration Date V isits Requested Visits Authorized [id number] Pending Review 12/04/2022 03/04/2023 1 1 Reason Onset Date Comments Refill Request 02/19/2023 Reason Comments Abdominal Pain Pain goes from back to stomach Reason Onset Date Comments Refill Request 11/03/2023 Care Teams (unrecognized sec tion and content) Bureau Director Relationship Specialty Start Date End Date Hoang Nathan Alonso [address] [place] [address] PCP - General Family Medicine 07/29/20 Bureau Director Relationship Specialty Start Date End Date Mamegideon Nathan Gavin [address] [place] [address] PCP - General Family Medicine 07/29/20 Bureau Director Relationship Specialty Start Date End Date Mamegideon Nathan Alonso [address] [place] [address] PCP - General Family Medicine 07/29/20 Bureau Director Relationship Specialty Start Date End Date Hoang Nathan Gavin [address] [place] [address] PCP - General Family Medicine 07/29/20 Bureau Director Relationship Specialty Start Date End Date Nathan Bolton [address] [place] [address] PCP - General Family Medicine 07/29/20 Bureau Director Relationship Specialty Start Date End Date Nathan Bolton [address] [place] [address] PCP - General Family Medicine 07/29/20 Bureau Director Relationship Specialty Start Date End Date Nathan Bolton [address] [place] [address] PCP - [facility] 07/29/20 Bureau Director Relationship Specialty Start Date End Date Nathan Bolton MD [address] [place] [id number] PCP - [facility] 09/10/23 Bureau Director Relationship Specialty Start Date End Date Nathan Bolton MD [address] [place] [phone] PCP - [facility] 09/10/23 Bureau Director Relationship Specialty Start Date End Date Nathan Bolton [address] [place] [address] PCP - [facility] Family [facility] 07/29/20 FOR RECORDS PERTAINING TO PATIENTS WHO ARE [...] BE BASED ON THE PRIMARY CLINICAL RECORDS. [employer] [facility]. provides no warranty or guarantee of the accuracy or completeness of information in this document.
[2023-12-03 12:47] VITALS: BP 138/76; PULSE 77; TEMP 36.5; O2SAT 98; BMI 22.7
--- NOTE | 2023-12-03 13:14 | CT_ITS ---
[address] [address] Patient Name: TASHA NEWBERRY MRN: [id number] date: 1945 Sex: M Assigned Patient Location: ER Current Patient Location: ER Accession/Order Number: [id number] Exam Date: 12/03/2023 13:20 Report Date: 12/03/2023 14:06 At the request of: KAMALJIT SAUCEDO Procedure: CT pelvis wo con EXAMINATION: CT pelvis wo con HISTORY: fall ; left hip pain after falling COMPARISON: CT abdomen pelvis 11/08/2020 TECHNIQUE: After obtaining the patient's consent, CT images of the pelvis were obtained with non-ionic contrast. Multi-planar/3-D images were created to optimize visualization of vascular anatomy. Dose reduction techniques were achieved by using automated exposure control and/or adjustment of mA and/or kV according to patient size and/or use of iterative reconstruction technique. FINDINGS: AORTO-ILIAC: No aneurysm or dissection. No significant stenosis or occlusion. URINARY BLADDER: No visible focal wall thickening, lesion, or calculus. LYMPH NODES: No adenopathy. BOWL: Mild diverticulosis of distal colon. No abnormality of the visible bowl. PELVIC ORGANS: Slightly prominent prostate. BONES: No fracture or dislocation. Mild degenerative joint disease of the hips. Multilevel moderate marked degenerative changes of the visible lumbar spine. OTHER: Small nonobstructing stone within right kidney. CT/CT pelvis wo con IMPRESSION: 1. No acute bone abnormality. 2. Mild degenerative changes of hip joints and moderate-marked degenerative changes of lumbar spine. Electronically authenticated by: AYAZ NICOLE Date: 12/03/2023 14:06
--- NOTE | 2023-12-03 13:15 | ED.GENADUL1 ---
HPI HPI - General Adult General Chief complaint: Back Pain/Injury Stated complaint: FALL Time Seen by Provider: 12/03/23 13:09 Source: patient and family Mode of arrival: walk-in History of Present Illness HPI narrative: Patient is a 78-year-old male who presents to the emergency department for persistent pain in the left hip and buttock after several falls approximately 8 to 9 days ago. Patient had several falls at the same time, he states he landed on his left side. He has not had any persistent dizziness, chest pain, shortness of breath. He is able to ambulate but reports increasing pain in the left hip and buttock with doing so which prompted him to come to the ER today. He has been using Tylenol for pain with improvement. He has a history of Parkinson's and family attributes these falls to the Parkinson's. He has no other focal medical complaints at this time. He denies head injury, loss of consciousness, neck or upper back pain. Related Data Home Medications ?Medication ?Instructions ?Recorded ?Confirmed carbidopa 25 mg-levodopa 100 mg 1.5 tab PO .4 times per day 02/07/23 12/03/23 tablet glipizide 5 mg tablet 5 mg PO DAILY 02/07/23 12/03/23 meloxicam 7.5 mg tablet 7.5 mg PO DAILY 02/07/23 12/03/23 metformin 500 mg tablet,extended 500 mg PO BID 02/07/23 12/03/23 release 24 hr metoprolol succinate 50 mg 25 mg PO DAILY 02/07/23 12/03/23 tablet,extended release 24 hr ramipril 1.25 mg capsule 1.25 mg PO DAILY 02/07/23 12/03/23 rasagiline 1 mg tablet 1 mg PO DAILY 02/07/23 12/03/23 simvastatin 40 mg tablet 40 mg PO .QHS 02/07/23 12/03/23 Previous Rx's ?Medication ?Instructions ?Recorded cephalexin 500 mg capsule 500 mg PO Q8H 5 days #15 caps 02/07/23 hydrocodone 5 mg-acetaminophen 325 1 tab PO Q6H PRN pain 3 days #12 12/03/23 mg tablet tabs methocarbamol 500 mg tablet 500 mg PO TID #12 tabs 12/03/23 Allergies Allergy/AdvReac Type Severity Reaction Status Date / Time No Known Drug Allergies Allergy Verified 07/18/23 12:18 Opioid HPI Opioid Management Most Recent Opioid Data: Last Pain Scale 4 12/03/23 12:57 Review of Systems ROS Constitutional Denies: fever or chills Ears, nose, mouth, and throat Denies: throat pain or nasal congestion Cardiovascular Denies: chest pain Respiratory Denies: shortness of breath Gastrointestinal Denies: nausea or vomiting Musculoskeletal Reports: extremity pain, joint pain and limited range of motion; Denies: back pain or neck pain Integumentary/Breast Denies: rash Neurological Denies: headache, numbness in extremities or weakness in extremities Hematologic/Lymphatic Denies: easy bruising or easy bleeding PFSH PFSH Social History Smoking status: Never smoker Exam Narrative Exam Narrative: Gen.: Awake, alert, in no distress Head: Normocephalic, atraumatic ENT: Moist mucous membranes, C-spine nontender with full range of motion Respiratory: No respiratory distress Gastrointestinal: Abdomen is soft, nondistended and nontender to palpation Back: No bony tenderness of the T-spine or L-spine Extremities: Birthmark to the left anterior thigh, well-healing old ecchymosis noted to the left distal anterior thigh. No bony tenderness of the left foot, ankle or left knee. Diffuse tenderness of the left lateral hip with no obvious deformity or shortening. Psych: Normal mood and affect Neuro: No focal neuro deficit Skin: Warm, dry, intact Constitutional Vital Signs, click to edit/add: Last Vital Signs Temp 97.7 F 12/03/23 12:47 Pulse 77 12/03/23 12:47 Resp 16 12/03/23 12:47 BP 138/76 12/03/23 12:47 Pulse Ox 98 12/03/23 12:47 O2 Del Method Room Air 12/03/23 12:47 Course Vital Signs Vital signs: Vital Signs Temperature 97.7 F 12/03/23 12:47 Pulse Rate 77 12/03/23 12:47 Respiratory Rate 16 12/03/23 12:47 Blood Pressure 138/76 12/03/23 12:47 Pulse Oximetry 98 12/03/23 12:47 Oxygen Delivery Method Room Air 12/03/23 12:47 Temperature 97.7 F 12/03/23 12:47 Pulse Rate 77 12/03/23 12:47 Respiratory Rate 16 12/03/23 12:47 Blood Pressure 138/76 12/03/23 12:47 Pulse Oximetry 98 12/03/23 12:47 Oxygen Delivery Method Room Air 12/03/23 12:47 Medical Decision Making MDM Narrative Medical decision making narrative: CT of the pelvis with degenerative changes of the spine with no acute fracture or dislocation in the pelvis. Patient is able to ambulate. He is started on a short course of analgesics and muscle relaxants. He was encouraged to be extra cautious with transferring and ambulation with the pain medications. He and his verbalized understanding. He does take Mobic daily, he has a history of diabetes so we will avoid steroids. Patient is neurovascularly intact at discharge. Rest, ice, gentle stretching. Follow-up PCP and return to the ER if symptoms change or worsen Medical Records Medical records reviewed: Yes I reviewed the patient's medical records Imaging Data CT scan - pelvis: Attestation: I have reviewed the pertinent imaging results. Radiologist's impression: ITS Impressions Pelvis CT 12/03/23 13:14 IMPRESSION: 1. No acute bone abnormality. 2. Mild degenerative changes of hip joints and moderate-marked degenerative changes of lumbar spine. Electronically authenticated by: AYAZ NICOLE Date: 12/03/2023 14:06 Discharge Plan Discharge Stand Alone Forms: Portal Instructions Chief Complaint: Back Pain/Injury Clinical Impression: Acute pain of left hip, Fall Patient Disposition: Home, Self-Care Time of Disposition Decision: 14:13 Condition: Good Prescriptions / Home Meds: New hydrocodone-acetaminophen 5-325 mg tablet 1 tab PO Q6H PRN (Reason: pain) 3 Days Qty: 12 0RF Rx Instructions: DX: M25.552 methocarbamol 500 mg tablet 500 mg PO TID Qty: 12 0RF No Action carbidopa-levodopa 25-100 mg tablet 1.5 tab PO .4 times per day glipizide 5 mg tablet 5 mg PO DAILY meloxicam 7.5 mg tablet 7.5 mg PO DAILY metformin 500 mg tablet extended release 24 hr 500 mg PO BID metoprolol succinate 50 mg tablet extended release 24 hr 25 mg PO DAILY ramipril 1.25 mg capsule 1.25 mg PO DAILY rasagiline 1 mg tablet 1 mg PO DAILY simvastatin 40 mg tablet 40 mg PO .QHS cephalexin 500 mg capsule 500 mg PO Q8H 5 Days Qty: 15 0RF Print Language: Mexican Instructions: Hip Pain (ED) Referrals: Nathan Hartman MD [Primary Care Provider] - 1 week
== END 2023-12-03 14:28 | disposition home or self-care (01) ==
PROVIDERS: Emergency Provider Emergency Medicine; PCP Family Medicine
DX: M25.552 Pain in left hip (principal); G20.A1 Parkinson's disease without dyskinesia, without mention of fluctuations; Z79.899 Other long term (current) drug therapy; Z79.84 Long term (current) use of oral hypoglycemic drugs; Z91.81 History of falling
CPT/HCPCS: 72192; 99284

== ENCOUNTER 2023-12-04 08:49 | Outpatient (OUT) | payer MEDICARE, SELFPAY ==
--- OUTSIDE RECORDS SUMMARY | 2023-12-04 09:11 | XMS_ITS | CCD ---
Author Organization [facility] Care Team Providers Care [employer]pper [employer]pper Name Role Phone Nathan Bolton Primary Care Provider [phone] DONALD ALBERTS Referring Unavailable NATHAN BOLTON Primary [...] GUAJARDO ., DR NIKHIL Ross Attending Unavailable ZASANIYA BROWN Consulting Unavailable SANIYA GARZON Attending Unavailable NADROBERTA, DR NATHAN Alonso Primary Care Unavailable SANIYA GARZON Admitting Unavailable SANIYA GARZON Consulting Unavailable SANIYA GARZON Attending Unavailable SANIYA GARZON Admitting Unavailable NADROBERTA, DR NATHAN Alonso Primary Care Unavailable MISC, DR NOBLE Admitting Unavailable MISC, DR NOBLE Attending Unavailable HOANG, DR NATHAN Alonso Primary Care Unavailable GUAJARDO ., DR NIKHIL Ross Admitting Unavailable GUAJARDO ., DR NIKHIL Ross Consulting Unavailable GUAJARDO ., DR NIKHIL Ross Attending Unavailable NADEREGideon, DR NATHAN Alonso Primary Care Unavailable NADEREGideon, DR NATHAN Alonso Primary Care Unavailable NADEREGideon, DR NATHAN Alonso Consulting Unavailable NADEREGideon, DR NATHAN Alonso Attending Unavailable NADEREGideon, DR NATHAN Alonso Admitting Unavailable NADERER, DR NATHAN Alonso Consulting Unavailable NADERER, DR NATHAN Alonso [...] hyperglycemia, without long-term current use of insulin (CMS/[facility]) Take 1 tablet (10 mg) [...] 05-18-2022 Chronic Other aftercare (1 source) Other mcfp (current) drug therapy; Translations: [OTH FAMILY SUPPORT COORDINATOR CURRENT DRUG THERAPY] Onset: 12-15-2022 Episodic Other aftercare (1 source) 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; Translations: [FAMILY SUPPORT COORDINATOR CURRENT USE OF ASPIRIN] Onset: 12-15-2022 Episodic Other aftercare (1 source) alf (current) use of oral hypoglycemic drugs; Translations: [FAMILY SUPPORT COORDINATOR USE ORAL HYPOGLYCEMIC DX] Onset: 12-15-2022 Episodic [...] Test Name Value Interpretation Reference Range Facility [facility] 06-14-2023 [facility] Office Visit (NRESFV) HERRERA MARTINEZ ([id number]) 1945 M Date Time Provider Department 06/14/23 3:00 PM DONALD ALBERTS NRESFV During your visit today, we recorded the following information about you: Pulse Blood pressure Weight Height 72/minute 118/61 76.1 kg 1.778 m Donald Alberts, DO 06/14/2023 3:34 PM Signed [facility] - FOLLOW UP EVALUATION Nathan Bolton MD [address] [facility] [id number] Herrera Martinez is a 77 year old male with a history of PD. He is seen with his . Interval History Since Last Visit: The patient had a swallowing test in late november 2022 - no issues other than more focus on swallowing was made to the patient. He is going to ECONOMETRICIAN still. 1 fall in November o/w doing [...] 72 Ht (more content not included)... Normal [facility] 12-05-2022 [facility] Office Visit (NRESFV) HERRERA MARTINEZ ([id number]) 1945 M Date Time Provider Department 12/05/22 1:30 PM DONALD ALBERTSFV During your visit today, we recorded the following information about you: Pulse Blood pressure Weight 61/minute 127/72 74.8 kg Donald Alberts DO 12/05/2022 2:18 PM Signed [facility] - FOLLOW UP EVALUATION Donald Alberts [address] [place] [address] Nathan Bolton MD [address] [facility] [facility] [address] Herrera Martinez is a 77 year old male with a history of parkinsonism. He is seen with family. Interval History Since Last Visit: He is falling. There is more uyqzivga-ow-rocf (FOG) - this is the cause of the falls. He has fallen while he is carrying things. Multitasking is a big issue. There were two falls in the post op period following cataract surgery. FOG seems to be worse in the PM. There is drooling at night. The mucous in the back of the throat is the issue. No ECONOMETRICIAN for 6 years. The Sinemet is not [...] no evid (more content not included)... Normal [facility] CBC AUTO DIFFon 11-26-2022 BASO # 0.0 103/ul Normal 0.0-0.1 [facility] Comment on above: Performed By: #### C BC #### [facility] [address] [address] [address] Joaquín Rodriguez Basophils/100 WBC (Bld) 0.4 % Normal 0.2-2.0 [facility] Comment on above: Performed By: #### C BC #### [facility] [address] [address] [address] Joaquín Rodriguez EO # 0.1 103/ul Normal 0.0-0.7 [facility] Comment on above: Performed By: #### C BC #### [facility] [address] [address] [address] Joaquín Rodriguez Eosinophils/100 WBC (Bld) 2.6 % Normal 0.9-7.0 [facility] Comment on above: Performed By: #### C BC #### [facility] [address] [address] [address] Joaquín Rodriguez Erythrocyte distribution width (RBC) [Ratio] 13.2 % Normal 11.0-15.0 [facility] Comment on above: Performed By: #### C BC #### [facility] [address] [address] [address] Joaquín Rodriguez Hematocrit (Bld) [Volume fraction] 47.0 % Normal 42.0-54.0 [facility] Comment on above: Performed By: #### C BC #### [facility] [address] [address] [address] Joaquín Rodriguez Hemoglobin (Bld) [Mass/Vol] 15.9 g/dL Normal 14.0-18.0 [facility] Comment on above: Performed By: #### C BC #### [facility] [address] [address] [address] Joaquín Rodriguez IG # 0.01 10e3/ul Normal 0.00-0.03 [facility] Comment on above: Performed By: #### C BC #### [facility] [address] [place] [address] Dr. Joaquín Rodriguez IG % 0.2 % Normal 0.0-0.5 [facility] Comment on above: Performed By: #### C BC #### [facility] [address] [place] [address] Dr. Joaquín Rodriguez LYMPH # 1.5 103/ul Normal 1.2-3.8 [facility] Comment on above: Performed By: #### C BC #### [facility] [address] [place] [address] Dr. Joaquín Rodriguez Lymphocytes/100 WBC (Bld) 30.0 % Normal 20.5-60.0 [facility] Comment on above: Performed By: #### C BC #### [facility] [address] [place] [address] Dr. Joaquín Rodriguez MANUAL DIFF REQ NO Normal [facility] Comment on above: Performed By: #### C BC #### [facility] [address] [place] [address] Dr. Joaquín Rodriguez MCH (RBC) [Entitic mass] 30.8 pg Normal 25.9-34.0 [facility] Comment on above: Performed By: #### C BC #### [facility] [address] [place] [address] Dr. Joaquín Rodriguez MCHC (RBC) [Mass/Vol] 33.8 g/dL Normal 29.9-35.2 [facility] Comment on above: Performed By: #### C BC #### [facility] [address] [place] [address] Dr. Joaquín Rodriguez MCV (RBC) [Entitic vol] 90.9 fL Normal 80.0-94.0 [facility] Comment on above: Performed By: #### C BC #### [facility] [address] [place] [address] Dr. Joaquín Rodriguez MONO # 0.4 103/ul Normal 0.3-0.8 [facility] Comment on above: Performed By: #### C BC #### [facility] [address] [address] [address] Joaquín Rodriguez Monocytes/100 WBC (Bld) 7.5 % Normal 1.7-12.0 [facility] Comment on above: Performed By: #### C BC #### [facility] [address] [address] [address] Joaquín Rodriguez NEUT # 3.0 103/ul Normal 1.4-6.5 [facility] Comment on above: Performed By: #### C BC #### [facility] [address] [place] [address] Dr. Joaquín Rodriguez Neutrophils/100 WBC (Bld) 59.3 % Normal 43.0-75.0 [facility] Comment on above: Performed By: #### C BC #### [facility] [address] [place] [address] Dr. Joaquín Rodriguez Platelet mean volume (Bld) [Entitic vol] 11.2 fL Normal 9.5-13.5 [facility] Comment on above: Performed By: #### C BC #### [facility] [address] [place] [address] Dr. Joaquín Rodriguez PLT 128 103/ul Critically low 150-450 [facility] Comment on above: Performed By: #### C BC #### [facility] [address] [place] [address] Dr. Joaquín Rodriguez RBC 5.17 106/ul Normal 4.70-6.10 [facility] Comment on above: Performed By: #### C BC #### [facility] [address] [place] [address] Dr. Joaquín Rodriguez WBC 5.1 103/ul Normal 4.0-11.0 [facility] Comment on above: Performed By: #### C BC #### [facility] [address] [place] [address] Dr. Joaquín Rodriguez GLYCOHEMOGLOBIN A1Con 2022 ADA RECOMMENDATION SEE BELOW Normal [facility] Comment on above: Result Comment: ADA RECOMMENDED LIMIT 4.0 - 6.0 ADA THERAPEUTIC TARGET < 7.0 ACTION SUGGESTED > 7.0 Performed By: #### A 1C #### [facility] [address] [address] [address] Joaquín Rodriguez Glucose [Mass/Vol] 235 mg/dL Normal [facility] Comment on above: Performed By: #### A 1C #### [facility] [address] [address] [address] Joaquín Rodriguez HbA1c (Bld) [Mass fraction] 9.8 % Critically high 4.5-6.2 [facility] Comment on above: Performed By: #### A 1C #### [facility] [address] [address] [address] Joaquín Rodriguez LIPID PROFILEon 11-26-2022 CHOL-HDL RATIO NORM SEE BELOW Normal [facility] Comment on above: Result Comment: 3.3 - 4.4 LOW RISK 4.4 - 7.1 AVERAGE RISK 7.1 - 11.0 MODERATE RISK >11.0 HIGH RISK Performed By: #### L IVTEN, LIPID, BMP ####[facility] [address] [id number]. Joaquín Rodriguez Cholesterol [Mass/Vol] 145 mg/dL Normal <=200 [facility] Comment on above: Performed By: #### L IVER, LIPID, BMP ####[facility] [address] [phone]. Joaquín Rodriguez Cholesterol in HDL [Mass/Vol] 39 mg/dL Critically low 40-60 [facility] Comment on above: Performed By: #### L IVER, LIPID, BMP ####[facility] [address] [phone]. Joaquín Rodriguez Cholesterol in LDL [Mass/Vol] 70.8 mg/dL Normal [facility] Comment on above: Performed By: #### L IVER, LIPID, BMP ####[facility] [address] [phone]. Joaquín Rodriguez Cholesterol.total/Rukhsana sterol in HDL [Mass ratio] 3.7 {ratio} Normal [facility] Comment on above: Performed By: #### L IVER, LIPID, BMP ####[facility] [address] [id number]. Joaquín Rodriguez HDL NORMAL > or = 60 mg/dl - LOW CARDIOVASCULAR RISK <40 mg/dl - HIGH CARDIOVASCULAR RISK Normal [facility] Comment on above: Performed By: #### L ZENY LIPID, BMP ####[facility] [address] [address]Dr. Joaquín Rodriguez LDL CALC NORMAL SEE BELOW Normal [facility] Comment on above: Result Comment: <100 mg/dl OPTIMAL 100 - 129 mg/dl NEAR OR ABOVE OPTIMAL 130 - 159 mg/dl BORDERLINE HIGH 160 - 189 mg/dl HIGH >190 mg/dl VERY HIGH Performed By: #### Kayla MOURA LIPID, BMP ####[facility] [address] [address]Dr. Joaquín Rodriguez Triglyceride [Mass/Vol] 176 mg/dL Critically high <=150 [facility] Comment on above: Performed By: #### Kayla MOURA LIPID, BMP ####[facility] [address] [address]Dr. Joaquín Rodriguez VLDL CALC 35.2 mg/dL Normal [facility] Comment on above: Performed By: #### L ZENY LIPID, BMP ####[facility] [address] [address]Dr. Joaquín Rodriguez LIVER PROFILEon 11-26-2022 Albumin [Mass/Vol] 3.9 g/dL Normal 3.4-5.0 [facility] Comment on above: Performed By: #### L IVTEN, LIPID, BMP ####[facility] [address] [address]Dr. Joaquín Rodriguez Albumin/Globulin [Mass ratio] 1.0 {ratio} Normal [facility] Comment on above: Performed By: #### L IVTEN, LIPID, BMP ####[facility] [address] [address]Dr. Nailakristan Michael ALP [Catalytic activity/Vol] 91 U/L Normal 46-116 [facility] Comment on above: Performed By: #### L IVTEN, LIPID, BMP ####[facility] [address] [phone]. Joaquín Rodriguez ALT [Catalytic activity/Vol] 15 U/L Critically low 16-63 [facility] Comment on above: Performed By: #### L IVER, LIPID, BMP ####[facility] [address] [phone]. Joaquín Rodriguez AST [Catalytic activity/Vol] 29 U/L Normal 15-37 [facility] Comment on above: Performed By: #### L IVER, LIPID, BMP ####[facility] [address] [phone]. Joaquín Rodriguez BILI, CONJUGATED 0.2 mg/dL Normal 0.0-0.2 [facility] Comment on above: Performed By: #### L IVER, LIPID, BMP ####[facility] [address] [address]Dr. Joaquín Rodriguez Bilirubin [Mass/Vol] 0.7 mg/dL Normal 0.2-1.0 [facility] Comment on above: Performed By: #### L IVER, LIPID, BMP ####[facility] [address] [address]Dr. Joaquín Rodriguez Globulin (S) [Mass/Vol] 3.8 g/dL Normal T [facility] Comment on above: Performed By: #### L IVER, LIPID, BMP ####[facility] [address] [phone]. Jaoquín Rodriguez Protein [Mass/Vol] 7.7 g/dL Normal 6.4-8.2 [facility] Comment on above: Performed By: #### L IVER, LIPID, BMP ####[facility] [address] [address]Dr. Joaquín Rodriguez MICROALBUMIN, RAND URon 05-0 -2022 mALB 3.5 mg/L Normal <=30.0 [facility] Comment on above: Performed By: #### M ALBR #### [facility] [address] [address] [address] Joaquín Rodriguez PROF CHEM 8 (BAS METB)on Anion gap [Moles/Vol] 10.8 mmol/L Normal Th [facility] Comment on above: Performed By: #### L IVER LIPID, BMP ####[facility] [address] [address]Dr. Joaquín Rodriguez Calcium [Mass/Vol] 9.1 mg/dL Normal 8.5-10.1 [facility] Comment on above: Performed By: #### L IVTEN, LIPID, BMP ####[facility] [address] [address]Dr. Joaquín Rodriguez Chloride [Moles/Vol] 103 mmol/L Normal 98-107 [facility] Comment on above: Performed By: #### L IVTEN LIPID, BMP ####[facility] [address] [address]Dr. Joaquín Rodriguez CO2 [Moles/Vol] 29.7 mmol/L Normal 21.0-32.0 [facility] Comment on above: Performed By: #### L IVER, LIPID, BMP ####[facility] [address] [address]Dr. Joaquín Rodriguez Creatinine [Mass/Vol] 0.97 mg/dL Normal 0.70-1.30 [facility] Comment on above: Performed By: #### L IVTEN, LIPID, BMP ####[facility] [address] [address]Dr. Nailakristan Michael EGFR-AF GREENLANDIC >60 Normal >=60 [facility] Comment on above: Performed By: #### L IVER, LIPID, BMP ####[facility] [address] [address]Dr. Joaquín Rodriguez EGFR-NON AF GREENLANDIC >60 Normal >=60 [facility] Comment on above: Performed By: #### L IVER, LIPID, BMP ####[facility] [address] [address]Dr. Joaquín Rodriguez Glucose [Mass/Vol] 261 mg/dL Critically high 74-106 [facility] Comment on above: Performed By: #### L IVTEN, LIPID, BMP ####[facility] [address] [phone]. Joaquín Rodriguez Potassium [Moles/Vol] 4.5 mmol/L Normal 3.5-5.1 [facility] Comment on above: Performed By: #### L IVER, LIPID, BMP ####[facility] [address] [phone]. Joaquín Rodriguez Sodium [Moles/Vol] 139 mmol/L Normal 136-145 [facility] Comment on above: Performed By: #### L IVER, LIPID, BMP ####[facility] [address] [phone]. Joaquín Rodriguez Urea nitrogen [Mass/Vol] 16.0 mg/dL Normal 7.0-18.0 [facility] Comment on above: Performed By: #### L IVER, LIPID, BMP ####[facility] [address] [phone]. Joaquín Rodriguez Urea nitrogen/Creatinine [Mass ratio] 16.5 mg/mg Normal [facility] Comment on above: Performed By: #### L IVER, LIPID, BMP ####[facility] [address] [address]Dr. Joaquín Rodriguez [facility] HERR[facility] MARTINE[facility] ([id number]) 1945 M Date Time Provider Department 06/22/22 DONALD ALBERTS NRJAKYS2 During your visit today, we [...] Status:Closed by DELL DWYER on 06/22/22 Normal [facility] MRI BRAIN WO IVCONon 022 MRI BRAIN [...] infarction, intracranial hemorrhage or intracranial mass lesion. Carbide Die Maker: BIRGIT Transcribe Date/Time: Jun 20 2022 1:55P Dictated by : ANTHONY JONES MD This examination was interpreted and the report reviewed and electronically signed by: ANTHONY JONES MD on Jun 20 2022 2:02PM EST [id number] Normal [facility] POINT OF CARE GLUCOSEon 10-2 Glucose [Mass/Vol] 180 mg/dL Critically high 74-106 T [facility] Comment on above: Performed By: #### P OCGLUC ####[facility] [address] [place], [place] [address]VbDr. Joaquín Rodriguez Covid-19 PCR (CVDTB)on 04-29 SARS-CoV-2 (COVID-19) RNA JAS+probe Ql (Unsp spec) Not detected Normal NOT DETECTED [facility] Comment on above: Result Comment: This test is not yet approved or cleared by the [place] FDA. When there are no FDA-approved or cleared tests available, and other criteria are met, FDA can make tests available under an emergency access mechanism called an Emergency Use Authorization (EUA). The EUA for this test is supported by the [place] of Health and Human Service's (HHS's) declaration [...] SARS-CoV-2. Performed By: #### C VDTB #### [facility] [address] [place] [address] Dr. Joaquín Rodriguez GLYCOHEMOGLOBIN A1Con 2021 ADA RECOMMENDATION SEE BELOW Normal [facility] Comment on above: Result Comment: ADA RECOMMENDED LIMIT 4.0 - 6.0 ADA THERAPEUTIC TARGET < 7.0 ACTION SUGGESTED > 7.0 Performed By: #### A 1C #### [facility] [address] [place] [address] Dr. Joaquín Rodriguez Glucose [Mass/Vol] 212 mg/dL Normal [facility] Comment on above: Performed By: #### A 1C #### [facility] [address] [place] [address] Dr. Joaquín Rodriguez HbA1c (Bld) [Mass fraction] 9.0 % Critically high 4.5-6.2 [facility] Comment on above: Performed By: #### A 1C #### [facility] [address] [place], [place] [address] Dr. Joaquín Rodriguez Auth for Release of Medical Recordson 11-21-2020 Auth for Release of Medical Records [id number] #[id number]:[address] [facility] Dermatopathologyon 0 Dermatopathology [facility] [address] [place] [id number] DERMATOPATHOLOGY REPORT Name:HERRERA MARTINEZ Klaudia [facility]. Rec #. [id number] Location: [facility] Date of Procedure: 03/22/2020 Race: Date [...] None Electronically Signed Out By NADER GALO MD/[facility] By the signature on this report, the individual or group listed as making the Final Interpretation/Diagn osis certifies that they have reviewed this case. Clinical History: Malignant melanoma. Excision. ([place] office) Specimens Submitted As: A: SKIN, RIGHT SUPERIOR LATERAL UPPER BACK Gross Description: Received in formalin is one lozano-brown piece of skin measuring 56 x 21 x 6 mm. The specimen is inked and embedded in toto in four blocks. The tips are in Block 1. z/03/23/2020 Normal [facility] Comment on above: Performed By: #### D #### Dermatopathology Dermatopathologyon 0 Dermatopathology Pathologist: NADER GALO MD Date of Procedure: 02/10/2020 Date Received: 02/10/2020 Submitting Physician: SAÚL JHAVERI MD Location: [facility] Copy To/Referring/Attendi ng: HENRIK WHALEN DO FINAL DIAGNOSIS 4 SLIDES, DERMATOPATHOLOGY LABORATORY [facility], #[id number] (BX: 01/06/2020) SKIN, RIGHT SUPERIOR LATERAL UPPER [...] melanocytes. The melanocytes stain with antibodies against [place]-1 and SOX-10. The deep margin focally transects the atypical melanocytes. Electronically Signed Out by NADER GALO M.D. CANCER SUMMARY REPORT A. 4 SLIDES, DERMATOPATHOLOGY LABORATORY [facility], #[id number] (BX: 01/06/2020): Procedure: Biopsy, shave Specimen Laterality: [...] None Electronically Signed Out By NADER GALO MD/[facility] Clinical History: 1CM, NEOPLASM OF UNCERTAIN BEHAVIOR VS. SQUAMOUS CELL CARCINOMA VS. SCAR Specimens Submitted As: A: 4 SLIDES, DERMATOPATHOLOGY LABORATORY [facility], #[id number] (BX: 01/06/2020) Gross Description: Received for consultation from Dermatopathology Laboratory [facility] are four slides labeled [id number] (BX: 01/06/2020) along with the corresponding pathology report. Slide/Block Description 4 SLIDES, [id number]. Keep Slides: N Slides Returned: N Personal Consult: N Normal [facility] Comment on above: Performed By: #### D #### Dermatopathology Vital Signs Date Time Vital Sign Value Performing Clinician Davei yeyo 09-10-2023 11:47-0500 Body height 180.3 cm Nathan Bolton MD Work Phone: [facility] 09-10-2023 11:47-0500 Body mass index (BMI) [Ratio] 23.01 kg/m2 Nathan Bolton MD Work Phone: [facility] 09-10-2023 11:47-0500 Body temperature 97.5 [degF] Nathan Bolton MD Work Phone: [facility] 09-10-2023 11:47-0500 Body weight 74.84 kg Nathan Bolton MD Work Phone: [facility] 09-10-2023 11:47-0500 Diastolic blood pressure 70 mm[Hg] Nathan Bolton MD Work Phone: [facility] 09-10-2023 11:47-0500 Heart rate 89 /min Nathan Bolton MD Work Phone: [facility] 09-10-2023 11:47-0500 SaO2% (BldA) [Mass fraction] 99 % Nathan Bolton MD Work Phone: [facility] 09-10-2023 11:47-0500 Systolic blood pressure 130 mm[Hg] Nathan Bolton MD Work Phone: [facility] 12-05-2022 13:27-0400 Body weight 74.84 kg Donald Alberts DO Work Phone: [facility] 12-05-2022 13:27-0400 Diastolic blood pressure 72 mm[Hg] Donald Alberts DO Work Phone: [facility] 12-05-2022 13:27-0400 Heart rate 61 /min Donald Alberts DO Work Phone: [facility] 12-05-2022 13:27-0400 SaO2% (BldA) [Mass fraction] 99 % Donald Alberts DO Work Phone: [facility] 12-05-2022 13:27-0400 Systolic blood pressure 127 mm[Hg] Donald Alberts DO Work Phone: [facility] 06-06-2022 16:21-0500 Body height 180.3 cm Donald Alberts DO Work Phone: [facility] 06-06-2022 16:21-0500 Body weight 74.39 kg Donald Alberts DO Work Phone: [facility] 06-06-2022 16:21-0500 Diastolic blood pressure 75 mm[Hg] Donald Mishraoliviaang DO Work Phone: [facility] 06-06-2022 16:21-0500 Heart rate 69 /min Donald Mishraanastaciokee DO Work Phone: [facility] 06-06-2022 16:21-0500 SaO2% (BldA) [Mass fraction] 100 % Donald Mishraanastacioberthacecy DO Work Phone: [facility] 06-06-2022 16:21-0500 Systolic blood pressure 135 mm[Hg] Donald Aristeo DO Work Phone: [facility] Encounters Encounter Date Encounter Type [...] Start: 06-14-2023 End: 06-14-2023 ambulatory DONALD ALBERTS Facility:[facility] Start: 03-16-2023 ambulatory Donald delgadomanishrene DO Work Phone: Neurology Comment on above: Botox for excessive saliva for Herrera Juan Start: 02-19-2023 Refill Donald xavier DO Work Phone: Neurology Comment on above: Refill Request Start: 12-26-2022 End: 12-26-[address] DOCTOR NICOLE Facility:[facility] Start: 12-13-2022 End: 12-13-2022 ambulatory JOANNE TALAVERA . Facility:[facility] Start: 12-05-2022 End: 12-05-2022 ambulatory DONALD ALBERTS Facility:[facility] Start: 12-05-2022 End: 12-05-2022 Patient encounter [...] Refill Donald xavier DO Work Phone: [facility] Comment on above: Refill Request Start: 08-30-2022 End: 08-30-2022 ambulatory SANIYA GARZON Facility:[facility] Start: 06-27-2022 End: 06-28-[address] NIKHIL GUAJARDO . Facility:[facility] Start: 06-22-2022 Telephone encounter Donald gomez DO Work Phone: [facility] Comment on above: Results (MRI NL) Start: 06-20-2022 End: 06-20-2022 ambulatory DONALD ALBERTS Facility:[facility] Start: 06-06-2022 End: 06-06-2022 Patient encounter procedure Donald Alberts DO Work Phone: Neurology Comment on above: PD (Parkinson's dise ase) (HCC) (Primary Dx); Dysarthria Start: 05-23-2022 Encounter for preprocedural laboratory examination DR NIKHIL GUAJARDO . [facility] Start: 05-22-2022 End: 05-22-[address] NIKHIL [...] Author Start: 06-20-2024 DIABETES SCREEN DIABETES SCREEN [facility] Start: 06-20-2024 [facility] Start: 12-05-2023 End: 12-05-2023 Patient encounter procedure 12/05/2023 2:45 PM EDT Procedure Visit [facility] [address] [place] [id number] Ayaz Santo DPM [address] [place] [address] [facility] Start: 12-02-2023 End: 12-02-2023 Patient encounter procedure 12/02/2023 10:45 AM EDT Office Visit [facility] [address] [place] [phone] Nathan Bolton MD [address] [place] [phone] [facility] Start: 09-24-2023 Hemoglobin A1c measurement Maritza betes: Hemoglobin A1C [facility] Start: 09-10-2023 End: 09-10-2024 RF [...] [facility] [address] [place] [phone] Nathan Bolton MD [address] [place] [phone] Arrived [facility] Comment on above: Arrived Start: 07-29-2023 Advance Directive Discussion Advance Directive Discussion [facility] Start: 07-29-2023 Behavioral Health Screening Behavioral Health Screening [facility] Start: 03-29-2023 Covid-19 Vaccine ( season) Covid-19 Vaccine ( season) [facility] Start: 03-29-2023 Influenza vaccination INFLUENZA (#1) [facility] Start: 08-26-2022 COVID-19 VACCINE (6 - Pfizer series) COVID-19 VACCINE (6 - Pfizer series) [facility] Start: 07-29-2022 ADVANCE DIRECTIVE DISCUSSION ADVANCE DIRECTIVE DISCUSSION [facility] Start: 07-29-2022 DEPRESSION ASSESSMENT DEPRESSION ASS ESSMENT [facility] Start: 07-29-2021 ADVANCE DIRECTIVE DISCUSSION ADVANCE DIRECTIVE DISCUSSION [facility] Start: 07-29-2021 DEPRESSION ASSESSMENT DEPRESSION ASS ESSMENT [facility] Start: 05-28-2017 Urine microalbumin profile DTa P,Tdap,Td Vaccine (1 - Tdap) [facility] Start: 2011 PNEUMOCOCCAL: 65+ (1 - PCV) PNEUMOCOCCAL: 65+ (1 - PCV) [facility] Start: 2006 RSV Vaccine (1 - 1-d ose 60+ series) RSV Vaccine (1 - 1-dose 60+ series) [facility] Start: 1996 SHINGRIX VACCINE (1 of 2) FRIAS GRIX VACCINE (1 of 2) [facility] Start: 1991 COLOGUARD (FIT-DNA) COLOGUARD (FIT-D NA) [facility] Start: 1991 Colonoscopy COLONOSCOPY [facility] Start: 1991 COLORECTAL CANCER SCREENING COLORECTAL CANCER SCREENING [facility] Start: [address] COLONOGRAPHY [facility] Start: 1991 FECAL OCCULT BLOOD FECAL OCCULT BLOO D [facility] Start: 1991 SIGMOIDOSCOPY SIGMOIDOSCOPY [facility] Start: 1981 LIPID SCREEN LIPID SCREEN [facility] Start: 1965 Urine microalbumin profile DTAP,TDAP ,TD (1 - Tdap) [facility] Start: 1965 Urine screening for protein Diabetes: Urine Protein Screening [facility] Start: 1964 HEPATITIS C SCREENING HEPATITIS C [facility] Start: 1964 Hepatitis C screening Hepatitis C [facility] Start: 1956 Glaucoma screening Diabetes: R etinopathy Screening [facility] Start: 1946 Medicare Annual Well ness (AWV) Medicare Annual Wellness (AWV) [facility] End: 07-06-2023 Mri brain brain stem w/o contrast material MRI BRAIN WO IVCON Radiology Routine PD (Parkinson's disease) (HCC) Dysarthria 1 Occurrences starting 06/06/2022 until 07/06/2023 [facility] Work Phone: Comment on above: 1 Occurrences starti ng 06/06/2022 until 07/06/2023 [facility] Immunizations Immunization Date Immunization Notes Care Provider Fa tania 04-22-2023 Influenza, Seasonal, Quadrivalent, Adjuvanted Nathan Bolton MD Work Phone: [facility] 04-23-2022 Influenza, High-dose Seasonal, Quadrivalent, Preservative Free Nathan Bolton MD Work Phone: [facility] 04-27-2021 Influenza, Seasonal, Quadrivalent, Adjuvanted Nathan Bolton MD Work Phone: [facility] 05-05-2020 Influenza, Seasonal, Quadrivalent, Adjuvanted Nathan Bolton MD Work Phone: [facility] 05-18-2019 Influenza, injectabl e, Madin Coco Canine Kidney, preservative free, quadrivalent Nathan Bolton MD Work Phone: [facility] 11-20-2018 zoster vaccine recombinant Jade Bolton MD Work Phone: [facility] 05-13-2018 Seasonal trivalent influenza vaccine, adjuvanted, preservative free Nathan Bolton MD Work Phone: [facility] 02-17-2018 zoster vaccine recombinant Jade Bolton MD Work Phone: [facility] 09-06-2017 pneumococcal polysaccharide vaccine, 23 valent Nathan Bolton MD Work Phone: [facility] 05-27-2017 tetanus and diphther ia toxoids, adsorbed, preservative free, for adult use (5 Lf of tetanus toxoid and 2 Lf of diphtheria toxoid) Nathan Bolton MD Work Phone: [facility] 04-29-2017 influenza, high dose seasonal, preservative-free Nathan Bolton MD Work Phone: [facility] 05-30-2016 influenza, high dose seasonal, preservative-free Nathan Bolton MD Work Phone: [facility] 05-30-2016 pneumococcal conjuga te vaccine, 13 valent Nathan Bolton MD Work Phone: [facility] 06-08-2015 influenza, high dose seasonal, preservative-free Nathan Bolton MD Work Phone: [facility] Payers Date Payer Category Payer Medicare [id number] 1958 Medicare [id number] 1945 Unknown [id number] 2.16.84 [id number] 1945 Unknown [id number] 2.16.84 [id number] 1946 Unknown [id number] 2.16.84 [id number] 1946 Unknown [id number] 2.16.84 [id number] 1946 Unknown [id number] 2.16.84 [id number] 1946 Unknown [id number] 2.16.84 [id number] 1946 Unknown [id number] 2.16.84 [id number] 1946 Unknown [id number] 2.16.84 [id number] 1946 Unknown [id number] 2.16.84 [id number] 1946 Unknown [id number] 2.16.84 [id number] 1946 Unknown [id number] 2.16.84 [id number] 1946 Unknown [id number] 2.16.84 [id number] 1946 Unknown [id number] 2.16.84 [id number] 1946 Unknown [id number] 2.16.84 [id number] Social History Date Type Detail Facility Start: 03-27-2019 End: 12-05-2022 Tobacco smoking status VTIS Never smoked tobacco [facility] Start: 03-27-2019 End: 12-05-2022 Tobacco use and exposure Smokeless tobacco non-user [facility] Start: 10-14-2020 End: 06-14-2023 Alcohol intake Lifetime non-drinker (finding) [facility] Start: 03-27-2019 History SDOH Alcohol Frequency 1 [facility] Start: 1945 Sex Assigned At Male [facility] Start: 05-27-2022 End: 06-06-2022 Exposure to SARS-CoV-2 (event) Not sure [facility] Start: 12-05-2022 End: 06-10-2023 History of Social function [facility] Start: 12-05-2022 End: 06-10-2023 Tobacco use panel [facility] Adult Depression Screening Assessment 0 [facility] Start: 03-30-2019 Gender identity Identifies as male gender (finding) [facility] How often to you hav e a drink containing alcohol? Never [facility] Within the last year , [...] contrast w KUB documented in this encounter [facility] 06-14-2023 Note HNO ID: [id number] Author: Donald Alberts, DO Service: ? Author Type: Physician Type: Progress Notes Filed: 06/14/2023 3:34 PM Note Text: [facility] - FOLLOW UP EVALUATION Nathan Bolton MD [address] [facility] [address] Herrera Martinez is a 77 year old male with a history of PD. He is seen with his . Interval History Since Last Visit: The patient had a swallowing test in late november 2022 - no issues other than more focus on swallowing was made to the patient. He is going to ECONOMETRICIAN still. 1 fall in November o/w doing [...] Cardiac: Regular r (more content not included)... [facility] 02-20-2023 Miscellaneous Notes Last appt 12/05/22 MTG Requested Prescriptions Pending Prescriptions Disp Refills carbidopa-levodopa (SINEMET) 25-100 mg per tablet 540 tablet 3 Sig: Take 1.5 tablets by mouth four times daily. documented in this encounter [facility] 12-13-2022 Note PROCEDURE: XR HIP [...] authenticated by: AYAZ NICOLE Date: 2022-12-13 09:47 [facility] 12-13-2022 Note PROCEDURE: XR FOREAR M [...] authenticated by: AYAZ NICOLE Date: 2022-12-13 09:43 [facility] 12-13-2022 Note PROCEDURE: XR FOREAR M [...] authenticated by: AYAZ NICOLE Date: 2022-12-13 09:43 [facility] 12-05-2022 Note HNO ID: [id number] Author: Donald Alberts, DO Service: ? Author Type: Physician Type: Progress Notes Filed: 12/05/2022 2:18 PM Note Text: [facility] - FOLLOW UP EVALUATION Donald Alberts [address] [facility] [address] Nathan Bolton MD [address] [facility] [address] Herrera Martinez is a 77 year old male with a history of parkinsonism. He is seen with family. Interval History Since Last Visit: He is falling. There is more vuaxcahc-ga-nuoh (FOG) - this is the cause of the falls. He has fallen while he is carrying things. Multitasking is a big issue. There were two falls in the post op period following cataract surgery. FOG seems to be worse in the PM. There is drooling at night. The mucous in the back of the throat is the issue. No ECONOMETRICIAN for 6 years. The Sinemet is not [...] Right pathological reflex (more content not included)... [facility] 12-05-2022 Instructions Donald Alberts DO - 12/05/2022 2:12 PM EDT Medications 8A 1130A 3P 6P Sinemet 25/100 1.5 1.5 1.5 1.5 Azilect 1mg 1 0 0 0 documented in this encounter [facility] 12-05-2022 History of Present illness Narrative [facility] - FOLLOW UP EVALUATION Donald T Aristeo [address] [facility] [address] Nathan Bolton MD [address] [facility] [address] Herrera Martinez is a 77 year old male with a history of parkinsonism. He is seen with family. Interval History Since Last Visit: He is falling. There is more hfmlegai-vm-gxia (FOG) - this is the cause of the falls. He has fallen while he is carrying things. Multitasking is a big issue. There were two falls in the post op period following cataract surgery. FOG seems to be worse in the PM. There is drooling at night. The mucous in the back of the throat is the issue. No ECONOMETRICIAN for 6 years. The Sinemet is not [...] Left pathological reflexes: Kirstin's absent. Coordination Right: Svikwj-rq-ndjg normal. Rapid alternating movement normal.Left: Nvuvfc-eb-cruz normal. Rapid alternating movement normal. Gait Casual [...] addressed during this visit: Pd (parkinson's disease) ([facility]) (primary encounter diagnosis) Sialorrhea Hypophonia Plan: Continue current antiparkinsonian regimen as dosed other than increasing Sinemet 2. PA for botulinum toxin (Myobloc) injections 3. ECONOMETRICIAN locally for swallow evaluation Return in about 6 months (around 06/07/2023). Medical decision making was high complexity due to patient's, multiple symptoms, advancing disease The total time spent on the patient care was 30 minutes with greater than 50% of the time spent on counseling regarding preparing to see the patient, ipjj-oa-mbpc patient care, completing clinical documentation, obtaining and/or reviewing separately obtained history, performing a medically appropriate examination, counseling and educating the patient/family/caregiver, ordering medications, tests, or procedures, communicating with other HCPs (not separately reported), communicating results to the patient/family/caregiver, and care coordination (not separately reported) Donald Alberts, Senior Staff Neurologist - [facility] Diagnosis: Sialorrhea (K11.7) Current Examination: There [...] EMG guidance: Yes documented in this encounter [facility] 09-27-2022 Note OPERATIVE NOTE OPERATION [...] ensuring mobility, phacoemulsification was performed in a rtxwnwr-ykd-jrevir-type fashion. After all nuclear material had been [...] the following day for postoperative care. [facility] 09-27-2022 Note PREOPERATIVE HISTORY AND PHYSICAL Date:09/26/2021 [...] go forward with his elective procedure. [facility] 09-10-2022 Miscellaneous Notes Requested Prescriptions Pending Prescriptions Disp Refills rasagiline (AZILECT) 1 mg tab 90 tablet 1 Sig: Take 1 tablet by mouth once daily. documented in this encounter [facility] 08-30-2022 Note OPERATIVE NOTE OPERATION [...] ensuring mobility, phacoemulsification was performed in a utffhhg-bqt-dfliia-type fashion. After all nuclear material had been [...] the following day for postoperative care. [facility] 08-30-2022 Note HISTORY AND PHYSICAL EXAMINATION Date:08/29/2022 [...] go forward with his elective procedure. [facility] 06-27-2022 Note CONSULTATION CONSULTATION DATE: 06/27/2022 HISTORY [...] follow up on a p.r.n. basis. [facility] 06-22-2022 Miscellaneous Notes I spoke with Mr. Martinez to inform her MRI for Herrera is normal per Dr. Patino. ----- Message from Juan Patino MD sent at 06/20/2022 2:51 PM EST ----- Regarding: MRI results Suzanne, I am covering for Dr. Alberts today. Please let this patient know that his MRI results came back normal. Thanks, Dr. Patino documented in this encounter [facility] 06-20-2022 Note HNO ID: [id number] Author: RT Elo(R) Service: Radiology Author Type: [...] RT Elo(R) June 20, 2022 1:15 PM [facility] 06-06-2022 History of Present illness Narrative [facility] - FOLLOW UP EVALUATION Nathan Bolton MD [address] [facility] [address] Herrera Martinez is a 76 year old male with a history of PD. He is seen with his . Interval History Since Last Visit: The patient notes that he is more clumsy - the speech has worsened over the last couple of weeks. the walking has had more itvjikql-ap-jzkp (FOG). No falls are noted. The notes [...] Left pathological reflexes: Kirstin's absent. Coordination Right: Siruix-lq-vmuy normal. Rapid alternating movement normal. Left: Ofowlp-wg-lcgi normal. Rapid alternating movement normal. Gait Casual [...] counseling regarding preparing to see the patient, quon-ac-dohh patient care, completing clinical documentation, obtaining and/or reviewing separately obtained history, performing a medically appropriate examination, counseling and educating the patient/family/caregiver, ordering medications, tests, or procedures, and communicating results to the patient/family/caregiver. I tried to answer all of the patient's questions and concerns during this visit. Donald Alberts DO Senior Staff Neurologist - [facility] documented in this encounter [facility] 05-15-2022 Note CONSULTATION CONSULTATION DATE: 05/15/2022 CHIEF COMPLAINT: Low back pain, posterior thigh pain. HISTORY OF PRESENT ILLNESS: This is a very pleasant, 76-year-old gentleman who is accompanied by his . The patient suffers from Parkinson's. The patient is being treated at [facility] with regards to this. The [...] patient currently takes Mobic 7.5 daily, Tylenol isda-wpi-gyqjghs. The patient also is on Sinemet, metformin, [...] mg IM. CC: Nathan Bolton M.D. [facility] Evaluation note Diagnosis PD (Parkinson's disease) (HCC)- Primary Paralysis agitans Dysarthria [facility] Diagnosis PD (Parkinson's disease) (HCC)- Primary Paralysis agitans Sialorrhea Disturbance of salivary secretion Hypophonia Other voice and resonance disorders [facility] Diagnosis PD (Parkinson's disease) (HCC) Paralysis agitans [facility] Sialorrhea- Primary Disturbance of salivary secretion [facility] Diagnosis Epigastric abdominal pain- [...] Referral Specialty Diagnoses / Procedures Referred By lE chaves Referred To Contact Diagnoses PD (Parkinson's disease) (HCC) Dysarthria Procedures PROVIDER ORDERED FOLLOW UP OFFICE/OUTPATIENT NEW HIGH MDM 60-74 MINUTES Donald Alberts, DO [address] [place] [address] Referral ID Status Reason Start Date Expiration Date V isits Requested Visits Authorized [id number] Pending Review 12/04/2022 03/04/2023 1 1 Specialty Diagnoses / Procedures Referred By El chaves Referred To Contact MR IMAGING Diagnoses PD (Parkinson's disease) (HCC) Dysarthria Procedures MRI BRAIN WO IVCON MRI BRAIN BRAIN STEM W/O CONTRAST MATERIAL Donald Alberts, DO [address] [place] [id number] Mr Imaging Referral ID Status Reason Start Date Expiration Date Visits Requested Visits Authorized [id number] Authorized Auto-Generat ed Referral 06/06/2022 07/06/2023 1 1 Specialty Diagnoses / Procedures Referred By El chaves Referred To Contact Diagnoses PD (Parkinson's disease) (HCC) Procedures PROVIDER ORDERED FOLLOW UP OFFICE/OUTPATIENT NEW HIGH MDM 60-74 MINUTES Donald Alberts, DO [address] [place] [id number] Referral ID Status Reason Start Date Expiration Date V isits Requested Visits Authorized [id number] Pending Review 06/07/2023 09/05/2023 1 1 Specialty Diagnoses / Procedures Referred By El chaves Referred To Contact [facility] Diagnoses PD (Parkinson's disease) (HCC) Sialorrhea Hypophonia Procedures CONSULT TO SPEECH THERAPY OFFICE/OUTPATIENT NEW HIGH MDM 60-74 MINUTES Donald Alberts, DO [address] [place] [address] [facility] [address] [place] [address] Referral ID Status Reason Start Date Expiration Date Visits Requested Visits Authorized [id number] Pending Review Auto-Generat ed Referral 12/05/2022 12/05/2023 1 1 Additional Source Comments (unrecognized sect ion and content) No Status Records FoundNo Status Records FoundNo Status Records FoundNo Status Records FoundNo Status Records FoundNo Status Records Found INFORMATION SOURCE (unrecogn ized section and content) DATE CREATED AUTHOR 03/26/2020 [facility] DATE CREATED AUTHOR AUTHOR'S ORGANIZ ATION 11/22/2020 [facility] DATE CREATED AUTHOR AUTHOR'S ORGANIZ ATION 06/22/2022 [facility] DATE CREATED AUTHOR AUTHOR'S ORGANIZ ATION 01/04/2023 [facility] DATE CREATED AUTHOR AUTHOR'S ORGANIZ ATION 06/17/2023 [facility] DATE CREATED AUTHOR AUTHOR'S ORGANIZ ATION 12/02/2023 [facility] EPIC Source Comments (unrecognize d section and content) In the event this informatio n is protected by the Federal Confidentiality of Alcohol and Drug Abuse Patient Records regulations: The Federal rules restrict any use of the information to criminally investigate or prosecute any alcohol or drug abuse patient.[facility] the event this information is protected by the Federal Confidentiality of Alcohol and Drug Abuse Patient Records regulations: The Federal rules restrict any use of the information to criminally investigate or prosecute any alcohol or drug abuse patient.[facility] the event this information is protected by the Federal Confidentiality of Alcohol and Drug Abuse Patient Records regulations: The Federal rules restrict any use of the information to criminally investigate or prosecute any alcohol or drug abuse patient.[facility] the event this information is protected by the Federal Confidentiality of Alcohol and Drug Abuse Patient Records regulations: The Federal rules restrict any use of the information to criminally investigate or prosecute any alcohol or drug abuse patient.[facility] the event this information is protected by the Federal Confidentiality of Alcohol and Drug Abuse Patient Records regulations: The Federal rules restrict any use of the information to criminally investigate or prosecute any alcohol or drug abuse patient.[facility] Center[facility] the event this information is protected by the Federal Confidentiality of Alcohol and Drug Abuse Patient Records regulations: The Federal rules restrict any use of the information to criminally investigate or prosecute any alcohol or drug abuse patient.[facility] Center[facility] the event this information is protected by the Federal Confidentiality of Alcohol and Drug Abuse Patient Records regulations: The Federal rules restrict any use of the information to criminally investigate or prosecute any alcohol or drug abuse patient.[facility] Center[facility] the event this information is protected by the Federal Confidentiality of Alcohol and Drug Abuse Patient Records regulations: The Federal rules restrict any use of the information to criminally investigate or prosecute any alcohol or drug abuse patient.[facility] CenterIn the event this information is protected by the Federal Confidentiality of Alcohol and Drug Abuse Patient Records regulations: The Federal rules restrict any use of the information to criminally investigate or prosecute any alcohol or drug abuse patient.[facility] Reason for Visit (unrecogniz ed [...] HIGH MDM 60-74 MINUTES Donald Alberts, DO [address] [place] [address] Referral ID Status Reason Start Date Expiration Date V isits Requested Visits Authorized [id number] Pending Review 12/04/2022 03/04/2023 1 1 Reason Onset Date Comments Refill Request 02/19/2023 Reason Comments Abdominal Pain Pain goes from back to stomach Reason Onset Date Comments Refill Request 11/03/2023 Care Teams (unrecognized sec tion and content) Automatic Clipper And Stripper Relationship Specialty Start Date End Date Hoang Nathan Alonso [address] [place] [address] PCP - General Family Medicine 07/29/20 Automatic Clipper And Stripper Relationship Specialty Start Date End Date Mamegideon Nathan Gavin [address] [place] [address] PCP - General Family Medicine 07/29/20 Automatic Clipper And Stripper Relationship Specialty Start Date End Date Mamegideon Nathan Alonso [address] [place] [address] PCP - General Family Medicine 07/29/20 Automatic Clipper And Stripper Relationship Specialty Start Date End Date Hoang Nathan Gavin [address] [place] [address] PCP - General Family Medicine 07/29/20 Automatic Clipper And Stripper Relationship Specialty Start Date End Date Nathan Bolton [address] [place] [address] PCP - General Family Medicine 07/29/20 Automatic Clipper And Stripper Relationship Specialty Start Date End Date Natahn Bolton [address] [place] [address] PCP - General Family Medicine 07/29/20 Automatic Clipper And Stripper Relationship Specialty Start Date End Date Nathan Bolton [address] [place] [address] PCP - [facility] 07/29/20 Automatic Clipper And Stripper Relationship Specialty Start Date End Date Nathan Bolton MD [address] [place] [id number] PCP - [facility] 09/10/23 Automatic Clipper And Stripper Relationship Specialty Start Date End Date Nathan Bolton MD [address] [place] [id number] PCP - [facility] 09/10/23 Automatic Clipper And Stripper Relationship Specialty Start Date End Date Nathan Bolton [address] [place] [address] PCP - [facility] 07/29/20 FOR RECORDS PERTAINING TO PATIENTS WHO [...] BE BASED ON THE PRIMARY CLINICAL RECORDS. [employer] [facility]. provides no warranty or guarantee of the accuracy or completeness of information in this document.
[2023-12-04 09:32] LABS: Microalbumin Urine Random 6.2 mg/dL (<=30.0)
[2023-12-04 09:38] LABS: Estimated Average Glucose 217 mg/dL; Glycohemoglobin A1C 9.2 % (4.5-6.2)
[2023-12-04 10:16] LABS: Alanine Aminotransferase 14 U/L (16-63); Albumin Globulin Ratio 1.1; Albumin Level 3.9 g/dL (3.4-5.0); Alkaline Phosphatase 93 U/L (46-116); Anion Gap 11.6; Aspartate Amino Transferase 31 U/L (15-37); BUN Creatinine Ratio 18.4; Bilirubin Direct 0.2 mg/dL (0.0-0.2); Bilirubin Total 0.7 mg/dL (0.2-1.0); Calcium 9.5 mg/dL (8.5-10.1); Carbon Dioxide 29.1 mmol/L (21.0-32.0); Chloride 102 mmol/L (98-107); Chol HDL Ratio 3.6; Cholesterol 134 mg/dL (<=200); Estimated GFR (African America >60 (>=60); Estimated GFR (Non-African Ame >60 (>=60); Globulin 3.6 g/dL; Glucose 254 mg/dL (74-106); HDL Cholesterol 37 mg/dL (40-60); Potassium 4.7 mmol/L (3.5-5.1); Sodium 138 mmol/L (136-145); Total Protein 7.5 g/dL (6.4-8.2); Triglycerides 186 mg/dL (<=150); VLDL CHOLESTEROL 37.2 mg/dL
[2023-12-04 10:41] LABS: Basophils Percent Auto 0.2 % (0.2-2.0); Eosinophils Absolute Auto 0.1 10^3/uL (0.0-0.7); Eosinophils Percent Auto 2.5 % (0.9-7.0); Hematocrit 46.2 % (42.0-54.0); Hemoglobin 15.5 g/dL (14.0-18.0); Lymphocytes Absolute Auto 1.2 10^3/uL (1.2-3.8); Mean Corpuscular HGB Conc 33.5 g/dL (29.9-35.2); Mean Corpuscular Hemoglobin 30.5 pg (25.9-34.0); Mean Corpuscular Volume 90.8 fL (80.0-94.0); Mean Platelet Volume 12.1 fL (9.5-13.5); Monocytes Absolute Auto 0.4 10^3/uL (0.3-0.8); Monocytes Percent Auto 9.7 % (1.7-12.0); Neutrophils Absolute Auto 2.6 10^3/uL (1.4-6.5); Neutrophils Percent Auto 60.6 % (43.0-75.0); Platelet Count 122 10^3/uL (150-450); Red Blood Count 5.09 10^6/uL (4.70-6.10); Red Cell Distribution Width 13.1 % (11.0-15.0); White Blood Count 4.3 10^3/uL (4.0-11.0)
== END 2023-12-04 08:50 | disposition home or self-care (01) ==
LOC: LAB 08:52
PROVIDERS: PCP Family Medicine; Visit Provider Family Medicine
DX: E11.65 Type 2 diabetes mellitus with hyperglycemia (principal); I10 Essential (primary) hypertension; Z79.899 Other long term (current) drug therapy; E78.5 Hyperlipidemia, unspecified
CPT/HCPCS: 36415; 80048; 80061; 80076; 82043; 83036; 85025

== ENCOUNTER 2024-02-02 08:39 | Emergency (ER) | payer MEDICARE, SELFPAY ==
[2024-02-02] VITALS (26 sets, daily range): BP systolic 137–156; BP diastolic 77–81; PULSE 62–71; TEMP 36.6; O2SAT 94–99; BMI 23.3
--- OUTSIDE RECORDS SUMMARY | 2024-02-02 08:53 | XMS_ITS | CCD ---
Author Organization [facility] Care Team Providers Care Foot Caster Name Role Phone Nathan Bolton Primary Care Provider [phone] DONALD ALBERTS Referring Unavailable NATHAN BOLTON Primary Care Unavailable Nathan Bolton Primary Care Provider [phone] CASANDRA ., DR NIKHIL Ross Admitting Unavailable [...] GUAJARDO ., DR NIKHIL Ross Consulting Unavailable NADERER, DR NATHAN Alonso Primary Care Unavailable GUAJARDO ., DR NIKHIL Ross Attending Unavailable ZAHLSANIYA CAAL Consulting Unavailable SANIYA GARZON Attending Unavailable NADEREiGdeon, DR NATHAN Alonso Primary Care Unavailable ZAHLSANIYA CAAL Admitting Unavailable ZASANIYA BROWN Consulting Unavailable SANIYA GARZON Attending Unavailable SANIYA GARZON Admitting Unavailable NADROBERTA, DR NATHAN Alonso Primary Care Unavailable MISC, DR NOBLE Admitting Unavailable MISC, DR NOBLE Attending Unavailable NADEREGideon, DR NATHAN Alonso Primary Care Unavailable GUAJARDO ., DR NIKHIL Ross Admitting Unavailable GUAJARDO ., DR NIKHIL Ross Consulting Unavailable GUAJARDO ., DR NIKHIL Ross Attending Unavailable NADERER, DR NATHAN Alonso Primary Care Unavailable NADERER, DR NATHAN Alonso Primary Care Unavailable NADERER, DR NATHAN Alonso Consulting Unavailable NADERER, DR NATHAN Alonso Attending Unavailable NADERER, DR NATHAN Alonso Admitting Unavailable NADERER, DR NATHAN Alonso Consulting Unavailable NADERER, DR NATHAN Alonso Attending Unavailable NADERER, DR NATHAN Alonso Admitting Unavailable NADERER, DR NATHAN Alonso Primary Care Unavailable [facility], DR NOBLE Attending Unavailable ALISE, DR NOBLE [...] Unavailable Nathan Bolton MD Primary Care Provider [phone] AYAZ SANTO Attending Unavailable HOANG, NATHAN Attending Unavailable HOANG, NATHAN Attending Unavailable AYAZ SANTO Attending Unavailable SHAIKH GILLILAND Attending Unavailable Natahn Bolton Primary Care Provider Medications Current Medications Medication Drug Class(es) Dates [...] aspirin 81 mg delayed release oral tablet (13 sources) Platelet Aggregation Inhibitor, Nonsteroidal Anti-inflammatory Drug take 1 tablet by mouth once daily aspirin, enteric coated (ASPIRIN, ENTERIC COATED) 81 mg EC tablet Take 81 mg by mouth once daily. 0 Active Comment on above: Take 81 mg by mouth once daily. atropine sulfate 10 mg/ml ophthalmic solution (5 sources) Anticholinergic, Cholinergic Muscarinic Antagonist Start: 12-26-2023 take 1-2 drop(s) into the eye(s) once daily atropine 1 % ophthalmic solution Indications: Sialorrhea Use 1-2 drops daily as need for drooling 15 mL 1 12/26/2023 Active Start: 03-20-2023 End: 12-26-2023 take 1 drop(s) under the tongue once daily as needed atropine 1 % ophthalmic solution Indications: Sialorrhea 1(one) drop sublingual as needed daily for excessive drooling 15 mL 2 03/20/2023 12/26/2023 Discontinued Comment on above: 1(one) drop sublingu al as needed daily for excessive drooling carbidopa 25 mg / levodopa 100 mg oral tablet (16 sources) Aromatic Amino Acid Decarboxylation Inhibitor, Aromatic Amino Acid Start: 12-26-2023 End: 12-25-2024 carbidopa-levodopa (SINEMET) 25-100 mg per tablet Indications: PD (Parkinson's disease) ([facility]) Take 2 tablets by mouth four times daily. [Every 3-hours] 540 tablet 3 12/26/2023 12/25/2024 Active Start: 12-05-2022 End: 05-23-2024 take 1.5 tablets by mouth four times daily carbidopa-levodopa (SINEMET) 25-100 mg per tablet Indications: PD (Parkinson's disease) ([facility]) Take 1.5 tablets by mouth four times daily. 540 tablet 3 05/24/2023 12/26/2023 Discontinued Start: 02-19-2022 End: 03-09-2023 take 1.5 tablets [...] times daily. glipiZIDE 10 mg oral tablet (9 sources) Sulfonylurea Start: 07-01-2023 take 1 tablet by mouth in the morning glipiZIDE (Glucotrol) 10 MG tablet Indications: Type 2 diabetes mellitus with hyperglycemia, without long-term current use of insulin ([facility]) Take 1 tablet (10 mg) by mouth in the morning. 90 tablet 3 07/01/2023 Active take 1 tablet by mouth twice arcenio ly glipiZIDE (GLUCOTROL XL) 5 mg 24 hr tablet Take 5 mg by mouth two times a day. 0 Active take 1 tablet by mouth once katheryn y glipiZIDE (GLUCOTROL XL) 5 mg 24 hr tablet Take 5 mg by mouth once daily. 0 Active Comment on above: Take 5 mg by mouth o nce daily. Magnesium (13 sources) magnesium 250 MG tablet Take by mouth. 0 Active take 1 tablet by mouth once katheryn y Magnesium 250 mg tab Take 250 mg by mouth once daily. 0 Active Comment on above: Take 250 mg by mouth once daily. meloxicam 7.5 mg oral tablet (13 sources) Nonsteroidal Anti-inflammatory Drug Start: 9 End: 4 take 1 tablet by mouth once daily meloxicam (MOBIC) 7.5 mg tablet Take 7.5 mg by mouth once daily. 0 03/03/2019 Active Comment on above: Take 7.5 mg by mouth once daily. 24 hr metFORMIN hydrochloride 500 mg extended release oral tablet (13 sources) Biguanide Start: 9 metFORMIN ER (GLUCOPHAGE [...] succinate 50 mg extended release oral tablet (13 sources) beta-Adrenergic Feng Start: 02-17-2019 metoprolol succinate ER (TOPROL XL) 50 mg 24 hr tablet 50 mg once daily. 1/2 tablet daily 0 02/17/2019 Active Start: 02-17-2019 metoprolol suc cinate ER (TOPROL XL) 50 mg 24 hr tablet 50 mg once daily. 0 02/17/2019 Active take 0.5 tablet by m outh every twenty-four hours metoprolol succinate XL (Toprol-XL) 50 MG 24 hr tablet Take 50 mg by mouth Do not crush or chew. 1/2 tab 0 Active Comment on above: 50 mg once daily. Multiple Vitamin (multivitamin) tablet (3 sources) take 1 tablet by mouth in the morning Multiple Vitamin (multivitamin) tablet Take 1 tablet by mouth in the morning. 0 Active multivit-minerals/FA /lycopene (ONE-A-DAY MEN'S ORAL) (10 sources) multivit-mineral s/F A/lycopene (ONE-A-DAY MEN'S ORAL) Take by mouth once daily. 0 Active Comment on above: Take by mouth once d aily. omeprazole 40 mg delayed release oral capsule (3 sources) Proton Pump Inhibitor Start: 09-10-2023 take [...] or chew. 60 capsule 2 09/10/2023 Active take 1 capsule by mo uth twice daily in the evening omeprazole (PRILOSEC) 40 mg capsule Take 40 mg by mouth two times a day. One in am and one at pm 0 Active ramipril 1.25 mg oral capsule (13 sources) Angiotensin Converting Enzyme Inhibitor Start: 02-17-2019 ramipril (ALTACE) 1.25 mg capsule 1.25 mg once daily. 0 02/17/2019 Active Comment on above: 1.25 mg once daily. rasagiline 1 mg oral tablet (15 sources) Monoamine Oxidase Inhibitor Start: 05-24-2023 End: 12-26-2023 take 1 tablet by mouth once daily rasagiline (AZILECT) 1 mg tab Take 1 tablet by mouth once daily. 90 tablet 3 12/26/2023 Active Start: 03-06-2023 take 1 tablet by [...] once daily. simvastatin 40 mg oral tablet (13 sources) HMG-CoA Reductase Inhibitor Start: 9 simvastatin (ZOCOR) 40 mg tablet 40 mg daily at bedtime. 0 02/17/2019 Active Comment on above: 40 mg daily at bedti me. 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; Translations: [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 ASPIRIN] Onset: 12-15-2022 Episodic Other aftercare (1 source) remote 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 operator (current) use of oral hypoglycemic drugs; Translations: [USP USE ORAL HYPOGLYCEMIC DX] Onset: 12-15-2022 Episodic [...] [PSA]] Onset: 09-10-2023 09-10-2023 Episodic Parkinson`s disease (18 sources) Parkinson's disease; Translations: [Parkinson's disease] Onset: [...] Classification Problem Date Documented Da te Episodic/Chronic Melanomas of skin (1 source) Personal history of malignant melanoma of skin; Translations: [PERSONAL HX MALIGNANT MELANOMA SKIN] Onset: 08-31-2022 Episodic Other upper respiratory disease (7 sources) Hypophonia; Translations: [Other voice and resonance disorders] Onset: 12-05-2022 Episodic Other upper respiratory disease (1 source) Other voice and resonance disorders; Translations: [Hypophonia] Onset: 12-05-2022 Episodic Residual codes; unclassified (10 sources) H/O: steroid therapy; Translations: [Personal history of systemic steroid therapy] Onset: 10-07-2019 10-07-2019 Episodic Unclassified (1 source) LOW BACK PAIN, UNSPECIFIED; Translations: [LOW BACK PAIN, UNSPECIFIED] Onset: 05-15-2022 Results Test Name Value Interpretation Reference Range Facility [facility] 06-14-2023 CNOV Office Visit (NRESFV) HERRERA MARTINEZ ([id number]) 1945 M Date Time Provider Department 06/14/23 3:00 PM DONALD ALBERTS NRESFV During your visit today, we recorded the following information about you: Pulse Blood pressure Weight Height 72/minute 118/61 76.1 kg 1.778 m Donald Alberts DO 06/14/2023 3:34 PM Signed [facility] - FOLLOW UP EVALUATION Nathan Bolton MD [address] [place] [address] Herrera Martinez is a 77 year old male with a history of PD. He is seen with his . Interval History Since Last Visit: The patient had a swallowing test in late november 2022 - no issues other than more focus on swallowing was made to the patient. He is going to [facility] still. 1 fall in November o/w doing [...] 72 Ht (more content not included)... [facility] HERRERA MARTINEZ ([id number]) 1945 M Date Time Provider Department 12/05/22 1:30 PM DONALD ALBERTS NRESFV During your visit today, we recorded the following information about you: Pulse Blood pressure Weight 61/minute 127/72 74.8 kg Donald Alberts DO 12/05/2022 2:18 PM Signed [facility] - FOLLOW UP EVALUATION Donald Alberts [address] [facility] [address] Nathan Bolton MD [address] [facility] [address] Herrera Martinez is a 77 year old male with a history of parkinsonism. He is seen with family. Interval History Since Last Visit: He is falling. There is more qgmvrwbh-xo-ppmt (FOG) - this is the cause of the falls. He has fallen while he is carrying things. Multitasking is a big issue. There were two falls in the post op period following cataract surgery. FOG seems to be worse in the PM. There is drooling at night. The mucous in the back of the throat is the issue. No DIRECTOR CLINICAL APPLICATIONS for 6 years. The Sinemet is not [...] no evid (more content not included)... Normal [facility] CBC AUTO DIFFon 11-26-2022 BASO # 0.0 103/ul Normal 0.0-0.1 [facility] Comment on above: Performed By: #### C BC #### [facility] [address] [place] [address] Dr. Joaquín Rodriguez Basophils/100 WBC (Bld) 0.4 % Normal 0.2-2.0 [facility] Comment on above: Performed By: #### C BC #### [facility] [address] [place] [address] Dr. Joaquín Rodriguez EO # 0.1 103/ul Normal 0.0-0.7 [facility] Comment on above: Performed By: #### C BC #### [facility] [address] [place] [address] Dr. Joaquín Rodriguez Eosinophils/100 WBC (Bld) 2.6 % Normal 0.9-7.0 [facility] Comment on above: Performed By: #### C BC #### [facility] [address] [place] [address] Dr. Joaquín Rodriguez Erythrocyte distribution width (RBC) [Ratio] 13.2 % Normal 11.0-15.0 [facility] Comment on above: Performed By: #### C BC #### [facility] [address] [place] [address] Dr. Joaquín Rodriguez Hematocrit (Bld) [Volume fraction] 47.0 % Normal 42.0-54.0 [facility] Comment on above: Performed By: #### C BC #### [facility] [address] [place] [address] Dr. Joaquín Rodriguez Hemoglobin (Bld) [Mass/Vol] 15.9 g/dL Normal 14.0-18.0 [facility] Comment on above: Performed By: #### C BC #### [facility] [address] [place] [address] Dr. Joaquín Rodriguez IG # 0.01 10e3/ul Normal 0.00-0.03 [facility] Comment on above: Performed By: #### C BC #### [facility] [address] [place] [address] Dr. Joaquín Rodriguez IG % 0.2 % Normal 0.0-0.5 [facility] Comment on above: Performed By: #### C BC #### [facility] [address] [place] [address] Dr. Joaquín Rodriguez LYMPH # 1.5 103/ul Normal 1.2-3.8 [facility] Comment on above: Performed By: #### C BC #### [facility] [address] [place] [address] Dr. Joaquín Rodriguez Lymphocytes/100 WBC (Bld) 30.0 % Normal 20.5-60.0 [facility] Comment on above: Performed By: #### C BC #### [facility] [address] [place] [address] Dr. Joaquín Rodriguez MANUAL DIFF REQ NO Normal [facility] Comment on above: Performed By: #### C BC #### [facility] [address] [place] [address] Dr. Joaquín Rodriguez MCH (RBC) [Entitic mass] 30.8 pg Normal 25.9-34.0 [facility] Comment on above: Performed By: #### C BC #### [facility] [address] [place] [address] Dr. Joaquín Rodriguez MCHC (RBC) [Mass/Vol] 33.8 g/dL Normal 29.9-35.2 [facility] Comment on above: Performed By: #### C BC #### [facility] [address] [place] [address] Dr. Joaquín Rodriguez MCV (RBC) [Entitic vol] 90.9 fL Normal 80.0-94.0 [facility] Comment on above: Performed By: #### C BC #### [facility] [address] [place] [address] Dr. Joaquín Rodriguez MONO # 0.4 103/ul Normal 0.3-0.8 [facility] Comment on above: Performed By: #### C BC #### [facility] [address] [place] [address] Dr. Joaquín Rodriguez Monocytes/100 WBC (Bld) 7.5 % Normal 1.7-12.0 [facility] Comment on above: Performed By: #### C BC #### [facility] [address] [place] [address] Dr. Joaquín Rodriguez NEUT # 3.0 103/ul Normal 1.4-6.5 [facility] Comment on above: Performed By: #### C BC #### [facility] [address] [place] [address] Dr. Joaquín Rodriguez Neutrophils/100 WBC (Bld) 59.3 % Normal 43.0-75.0 [facility] Comment on above: Performed By: #### C BC #### [facility] [address] [place] [address] Dr. Joaquín Rodriguez Platelet mean volume (Bld) [Entitic vol] 11.2 fL Normal 9.5-13.5 [facility] Comment on above: Performed By: #### C BC #### [facility] [address] [place] [address] Dr. Joaquín Rodriguez PLT 128 103/ul Critically low 150-450 [facility] Comment on above: Performed By: #### C BC #### [facility] [address] [place] [address] Dr. Joaquín Rodriguez RBC 5.17 106/ul Normal 4.70-6.10 [facility] Comment on above: Performed By: #### C BC #### [facility] [address] [place] [address] Dr. Joaquín Rodriguez WBC 5.1 103/ul Normal 4.0-11.0 [facility] Comment on above: Performed By: #### C BC #### [facility] [address] [place] [address] Dr. Joaquín Rodriguez GLYCOHEMOGLOBIN A1Con 2022 ADA RECOMMENDATION SEE BELOW Normal [facility] Comment on above: Result Comment: ADA RECOMMENDED LIMIT 4.0 - 6.0 ADA THERAPEUTIC TARGET < 7.0 ACTION SUGGESTED > 7.0 Performed By: #### A 1C #### [facility] [address] [place] [address] Dr. Joaquín Rodriguez Glucose [Mass/Vol] 235 mg/dL Normal [facility] Comment on above: Performed By: #### A 1C #### [facility] [address] [place] [address] Dr. Joaquín Rodriguez HbA1c (Bld) [Mass fraction] 9.8 % Critically high 4.5-6.2 [facility] Comment on above: Performed By: #### A 1C #### [facility] [address] [place] [address] Dr. Joaquín Rodriguez LIPID PROFILEon 11-26-2022 CHOL-HDL RATIO NORM SEE BELOW Normal [place] Comment on above: Result Comment: 3.3 - 4.4 LOW RISK 4.4 - 7.1 AVERAGE RISK 7.1 - 11.0 MODERATE RISK >11.0 HIGH RISK Performed By: #### L IVER, LIPID, BMP ####[facility] [address] [place] [id number]. Nailalan Rodriguez Cholesterol [Mass/Vol] 145 mg/dL Normal <=200 [facility] Comment on above: Performed By: #### L IVER, LIPID, BMP ####[facility] [address] [place] [id number]. Nailalan Rodrigeuz Cholesterol in HDL [Mass/Vol] 39 mg/dL Critically low 40-60 [facility] Comment on above: Performed By: #### L IVER, LIPID, BMP ####[facility] [address] [place] [address]Dr. Joaquín Rodriguez Cholesterol in LDL [Mass/Vol] 70.8 mg/dL Normal [facility] Comment on above: Performed By: #### L IVER, LIPID, BMP ####[facility] [address] [place] [address]Dr. Joaquín Rodriguez Cholesterol.total/Rukhsana sterol in HDL [Mass ratio] 3.7 {ratio} Normal [facility] Comment on above: Performed By: #### L IVER, LIPID, BMP ####[facility] [address] [place] [id number]. Yilan Rodriguez HDL NORMAL > or = 60 mg/dl - LOW CARDIOVASCULAR RISK <40 mg/dl - HIGH CARDIOVASCULAR RISK Normal [facility] Comment on above: Performed By: #### L IVER, LIPID, BMP ####[facility] [address] [place] [address]Dr. Nailalan Rodriguez LDL CALC NORMAL SEE BELOW Normal [facility] Comment on above: Result Comment: <100 mg/dl OPTIMAL 100 - 129 mg/dl NEAR OR ABOVE OPTIMAL 130 - 159 mg/dl BORDERLINE HIGH 160 - 189 mg/dl HIGH >190 mg/dl VERY HIGH Performed By: #### L IVER, LIPID, BMP ####[facility] [address] [place] [address]Dr. Nailalan Rodriguez Triglyceride [Mass/Vol] 176 mg/dL Critically high <=150 [facility] Comment on above: Performed By: #### L IVER, LIPID, BMP ####[facility] [address] [place] [address]Dr. Joaquín Rodriguez VLDL CALC 35.2 mg/dL Normal [facility] Comment on above: Performed By: #### L IVER, LIPID, BMP ####[facility] [address] [place] [address]Dr. Joaquín Rodriguez LIVER PROFILEon 11-26-2022 Albumin [Mass/Vol] 3.9 g/dL Normal 3.4-5.0 [facility] Comment on above: Performed By: #### L IVER, LIPID, BMP ####[facility] [address] [place] [address]Dr. Joaquín Rodriguez Albumin/Globulin [Mass ratio] 1.0 {ratio} Normal [facility] Comment on above: Performed By: #### L IVER, LIPID, BMP ####[facility] [address] [place], [place] [address]Dr. Joaquín Rodriguez ALP [Catalytic activity/Vol] 91 U/L Normal 46-116 [facility] Comment on above: Performed By: #### L IVER, LIPID, BMP ####[facility] [address] [place], [place] [address]Dr. Joaquín Rodriguez ALT [Catalytic activity/Vol] 15 U/L Critically low 16-63 [facility] Comment on above: Performed By: #### L IVER, LIPID, BMP ####[facility] [address] [place], [place] [address]Dr. Joaquín Rodriguez AST [Catalytic activity/Vol] 29 U/L Normal 15-37 [facility] Comment on above: Performed By: #### L IVER, LIPID, BMP ####[facility] [address] [place] [address]Dr. Joaquín Rodriguez BILI, CONJUGATED 0.2 mg/dL Normal 0.0-0.2 [facility] Comment on above: Performed By: #### L IVER, LIPID, BMP ####[facility] [address] [place], [place] [address]Dr. Joaquín Rodriguez Bilirubin [Mass/Vol] 0.7 mg/dL Normal 0.2-1.0 [facility] Comment on above: Performed By: #### L IVER, LIPID, BMP ####[facility] [address] [place] [address]Dr. Joaquín Rodriguez Globulin (S) [Mass/Vol] 3.8 g/dL Normal [facility] Comment on above: Performed By: #### L IVER, LIPID, BMP ####[facility] [address] [place] [address]Dr. Joaquín Rodriguez Protein [Mass/Vol] 7.7 g/dL Normal 6.4-8.2 [facility] Comment on above: Performed By: #### L IVER, LIPID, BMP ####[facility] [address] [place] [address]Dr. Joaquín Rodriguez MICROALBUMIN, RAND URon 05-0 mALB 3.5 mg/L Normal <=30.0 [facility] Comment on above: Performed By: #### M ALBR #### [facility] [address] [place] [address] [address] Joaquín Rodriguez PROF CHEM 8 (BAS METB)on Anion gap [Moles/Vol] 10.8 mmol/L Normal [facility] Comment on above: Performed By: #### L IVER, LIPID, BMP ####[facility] [address] [place] [address]Dr. Joaquín Rodriguez Calcium [Mass/Vol] 9.1 mg/dL Normal 8.5-10.1 [facility] Comment on above: Performed By: #### L IVER, LIPID, BMP ####[facility] [address] [place] [address]Dr. Joaquín Rodriguez Chloride [Moles/Vol] 103 mmol/L Normal 98-107 [facility] Comment on above: Performed By: #### L IVER, LIPID, BMP ####[facility] [address] [place] [address]DrKlaudia Rodriguez CO2 [Moles/Vol] 29.7 mmol/L Normal 21.0-32.0 [facility] Comment on above: Performed By: #### L IVER, LIPID, BMP ####[facility] [address] [place] [address]Dr. Joaquín Rodriguez Creatinine [Mass/Vol] 0.97 mg/dL Normal 0.70-1.30 [facility] Comment on above: Performed By: #### L IVER, LIPID, BMP ####[facility] [address] [place] [address]Dr. Joaquín Rodriguez EGFR-AF MARSHALLESE >60 Normal >=60 [facility] Comment on above: Performed By: #### L IVER, LIPID, BMP ####[facility] [address] [place] [address]Dr. Joaquín Rodriguez EGFR-NON AF MARSHALLESE >60 Normal >=60 [facility] Comment on above: Performed By: #### L IVER, LIPID, BMP ####[facility] [address] [place] [address]Dr. Joaquín Rodriguez Glucose [Mass/Vol] 261 mg/dL Critically high 74-106 [facility] Comment on above: Performed By: #### L IVER, LIPID, BMP ####[facility] [address] [place] [address]Dr. Joaquín Rodriguez Potassium [Moles/Vol] 4.5 mmol/L Normal 3.5-5.1 [facility] Comment on above: Performed By: #### L IVER, LIPID, BMP ####[facility] [address] [place] [address]Dr. Joaquín Rodriguez Sodium [Moles/Vol] 139 mmol/L Normal 136-145 [facility] Comment on above: Performed By: #### L IVER, LIPID, BMP ####[facility] [address] [place] [address]Dr. Joaquín Rodriguez Urea nitrogen [Mass/Vol] 16.0 mg/dL Normal 7.0-18.0 [facility] Comment on above: Performed By: #### L IVER, LIPID, BMP ####[facility] [address] [place], [place] [address]YgKlaudia Rodriguez Urea nitrogen/Creatinine [Mass ratio] 16.5 mg/mg Normal [facility] Comment on above: Performed By: #### L ZENY, LIPID, BMP ####[facility] [address] [place], [place] [address]VuKlaudia Rodriguez ANSELMONon 06-22-2022 CNPN Telephone (NREUS2) HERRERA MARTINEZ ([id number]) 1945 M Date Time Provider Department 06/22/22 DONALD ALBERTS NRS2 During your visit today, we recorded the following information about you: Dell Dywer RN 06/22/2022 11:09 AM Signed ----- Message [...] [Z92.241] 10/07/2019 PD (Parkinson's disease) ([facility]) [G20] 10/07/2019 Encounter Status:Closed by DELL DWYER on 06/22/[address] [facility] MRI BRAIN WO IVCONon 022 MRI [...] infarction, intracranial hemorrhage or intracranial mass lesion. Manager Financial Services: P[employer] Transcribe Date/Time: Jun 20 2022 1:55P Dictated by : ANTHONY JONES MD This examination was interpreted and the report reviewed and electronically signed by: ANTHONY JONES MD on Jun 20 2022 2:02PM EST [id number] CN Normal [facility] POINT OF CARE GLUCOSEon 04-29 Glucose [Mass/Vol] 180 mg/dL Critically high 74-106 T he [facility] Comment on above: Performed By: #### P OCGLUC ####[facility] [address] [place], [place] [address]Tq. Joaquín Rodriguez Covid-19 PCR (CVDTBH)on 04-29 SARS-CoV-2 (COVID-19) RNA JAS+probe Ql (Unsp spec) Not detected Normal NOT DETECTED [facility] Comment on above: Result Comment: This test is not yet approved or cleared by the [place] FDA. When there are no FDA-approved or cleared tests available, and other criteria are met, FDA can make tests available under an emergency access mechanism called an Emergency Use Authorization (EUA). The EUA for this test is supported by the Hardware Manager of Health and Human Service's (HHS's) declaration [...] consistent with SARS-CoV-2. Performed By: #### [facility] #### [facility] [address] [place] [address] Dr. Joaquín Rodriguez GLYCOHEMOGLOBIN A1Con 2021 ADA RECOMMENDATION SEE BELOW Normal [facility] Comment on above: Result Comment: ADA RECOMMENDED LIMIT 4.0 - 6.0 ADA THERAPEUTIC TARGET < 7.0 ACTION SUGGESTED > 7.0 Performed By: #### A 1C #### [facility] [address] [place] [address] Dr. Joaquín Rodrigeuz Glucose [Mass/Vol] 212 mg/dL Normal [facility] Comment on above: Performed By: #### A 1C #### [facility] [address] [place] [address] Dr. Joaquín Rodriguez HbA1c (Bld) [Mass fraction] 9.0 % Critically high 4.5-6.2 [facility] Comment on above: Performed By: #### A 1C #### [facility] [address] [place] [address] Dr. Joaquín Rodriguez Auth for Release of Medical Recordson 11-21-2020 Auth for Release of Medical Records [id number] #1.00CD:127 Normal [facility] Dermatopathologyon 0 Dermatopathology [facility] [address] [place] [id number] DERMATOPATHOLOGY REPORT Name:HERRERA MARTINEZ [facility] Rec #. [id number] Location: [facility] Date of Procedure: 03/22/2020 Race: Date Received: 03/23/2020 /Sex: 1945 (Age: 74) / M Date Reported: 03/25/2020 Other: Submitting Physician:CODY STAHL MD, Attending/Copy To/Referring:: THIEN MEDINA,DO FINAL DIAGNOSIS SKIN, RIGHT SUPERIOR LATERAL UPPER [...] None Electronically Signed Out By NADER GALO MD/[facility] [place] By the signature on this report, the individual or group listed as making the Final Interpretation/Diagn osis certifies that they have reviewed this case. Clinical History: Malignant melanoma. Excision. ([facility]) Specimens Submitted As: A: SKIN, RIGHT SUPERIOR LATERAL UPPER BACK Gross Description: Received in formalin is one lozano-brown piece of skin measuring 56 x 21 x 6 mm. The specimen is inked and embedded in toto in four blocks. The tips are in Block 1. mlz/03/23/2020 Normal [facility] Comment on above: Performed By: #### D #### Dermatopathology Dermatopathologyon 0 Dermatopathology Pathologist: NADER GALO MD Date of Procedure: 02/10/2020 Date Received: 02/10/2020 Submitting Physician: SAÚL JHAVERI MD Location: [facility] Copy To/Referring/Attendi ng: HENRIK WHALEN DO FINAL DIAGNOSIS 4 SLIDES, [facility], #[id number] (BX: 01/06/2020) SKIN, RIGHT SUPERIOR LATERAL UPPER [...] melanocytes. The melanocytes stain with antibodies against Vicco-1 and SOX-10. The deep margin focally transects the atypical melanocytes. Electronically Signed Out by NADER GALO M.D. CANCER SUMMARY REPORT A. 4 SLIDES, [facility], #[id number] (BX: 01/06/2020): Procedure: Biopsy, shave Specimen Laterality: [...] None Electronically Signed Out By NADER GALO MD/[facility] [place] Clinical History: 1CM, NEOPLASM OF UNCERTAIN BEHAVIOR VS. SQUAMOUS CELL CARCINOMA VS. SCAR Specimens Submitted As: A: 4 SLIDES, [facility], #[id number] (BX: 01/06/2020) Gross Description: Received for consultation from [facility] are four slides labeled [id number] (BX: 01/06/2020) along with the corresponding pathology report. Slide/Block Description 4 SLIDES, [id number]. Keep Slides: N Slides Returned: N Personal Consult: N Normal [facility] Comment on above: Performed By: #### D #### Dermatopathology Vital Signs Date Time Vital Sign Value Performing Clinician Faci yeyo 12-26-2023 13:04-0400 Diastolic blood pressure 70 mm[Hg] Donald Alberts DO Work Phone: [facility] 12-26-2023 13:04-0400 Heart rate 74 /min Donald Alberts DO Work Phone: [facility] 12-26-2023 13:04-0400 Systolic blood pressure 109 mm[Hg] Donald Alberts DO Work Phone: [facility] 09-10-2023 11:47-0500 Body height 180.3 cm Nathan Bolton MD Work Phone: [facility] 09-10-2023 11:47-0500 Body mass index (BMI) [Ratio] 23.01 kg/m2 Nathan Bolton MD Work Phone: [facility] 09-10-2023 11:47-0500 Body temperature 97.5 [degF] Nathan Bolton MD Work Phone: [facility] 09-10-2023 11:47-0500 Body weight 74.84 kg Nathan Bolton MD Work Phone: [facility] 09-10-2023 11:47-0500 Diastolic blood pressure 70 mm[Hg] Nathan Bolton MD Work Phone: [facility] 09-10-2023 11:47-0500 Heart rate 89 /min Nathan Bolton MD Work Phone: [facility] 09-10-2023 11:47-0500 SaO2% (BldA) [Mass fraction] 99 % Nathan Bolton MD Work Phone: [facility] 09-10-2023 11:47-0500 Systolic blood pressure 130 mm[Hg] Nathan Bolton MD Work Phone: [facility] 12-05-2022 13:27-0400 Body weight 74.84 kg Donald Gostkowski DO Work Phone: [facility] 12-05-2022 13:27-0400 Diastolic blood pressure 72 mm[Hg] Donald Gostkowski DO Work Phone: [facility] 12-05-2022 13:27-0400 Heart rate 61 /min Donald Gostkowski DO Work Phone: [facility] 12-05-2022 13:27-0400 SaO2% (BldA) [Mass fraction] 99 % Donald Gostkowski DO Work Phone: [facility] 12-05-2022 13:27-0400 Systolic blood pressure 127 mm[Hg] Donald Gostkowski DO Work Phone: [facility] 06-06-2022 16:21-0500 Body height 180.3 cm Donald Gostkowski DO Work Phone: [facility] 06-06-2022 16:21-0500 Body weight 74.39 kg Donald Gostkowski DO Work Phone: [facility] 06-06-2022 16:21-0500 Diastolic blood pressure 75 mm[Hg] Donald Gostkowski DO Work Phone: [facility] 06-06-2022 16:21-0500 Heart rate 69 /min Donald Gostkowski DO Work Phone: [facility] 06-06-2022 16:21-0500 SaO2% (BldA) [Mass fraction] 100 % Donald Alberts DO Work Phone: [facility] 06-06-2022 16:21-0500 Systolic blood pressure 135 mm[Hg] Donald Alberts DO Work Phone: [facility] Encounters Encounter Date Encounter Type Care Provider Facility Start: 12-26-2023 End: 12-26-2023 Office outpatient visit 15 minutes Donald Alberts DO Work Phone: Neurology Comment on above: Parkinson's disease without dyskinesia or fluctuating manifestations (HCC) (Primary Dx); Sialorrhea; PD (Parkinson's disease) (HCC) Start: 12-11-2023 End: 12-11-2023 ambulatory SHAIKH TALAT Not Available Start: 12-05-2023 End: 12-05-2023 ambulatory AYAZ SANTO Not Available Start: 12-02-2023 End: 12-02-2023 ambulatory NATHAN BOLTON Not Available Start: 11-03-2023 Refill Donald xavier DO Work Phone: Neurology [...] Start: 06-14-2023 End: 06-14-2023 ambulatory DONALD ALBERTS Facility:[facility] Start: 03-16-2023 ambulatory Donald xavier DO Work Phone: Neurology Comment on above: Botox for excessive saliva for Herrera Martinez Start: 02-19-2023 Refill Donald Mishrawest morenita DO Work Phone: Neurology Comment on above: Refill Request Start: 12-26-2022 End: 12-26-[address] DOCTOR NICOLE Facility:[facility] Start: 12-13-2022 End: 12-13-2022 ambulatory JOANNE TALAVERA . Facility:[facility] Start: 12-05-2022 End: 12-05-2022 ambulatory DONALD ALBERTS Facility:[facility] Start: 12-05-2022 End: 12-05-2022 Patient encounter procedure Donald Alberts DO Work Phone: Neurology Comment on above: PD (Parkinson's dise ase) ([facility]) (Primary Dx); Sialorrhea; Hypophonia Start: 11-26-2022 End: 11-27-[address] NATHAN BOLTON Facility:[facility] Start: 10-21-2022 ambulatory Donald xavier DO Work Phone: Neurology Comment on above: Herrera Chasehart Rosario ons patient contraindicated medicines Start: 09-27-2022 End: 09-27-2022 ambulatory SANIYA GARZON Facility:[facility] Start: 09-10-2022 Refill Donald xavier DO Work Phone: [facility] Comment on above: Refill Request Start: 08-30-2022 End: 08-30-2022 ambulatory SANIYA GARZON Facility:[facility] Start: 06-27-2022 End: 06-28-[address] NIKHIL GUAJARDO . Facility:[facility] Start: 06-22-2022 Telephone encounter Donald gomez DO Work Phone: [facility] Comment on above: Results (MRI NL) Start: 06-20-2022 End: 06-20-2022 ambulatory DONALD ALBERTS Facility:[facility] Start: 06-06-2022 End: 06-06-2022 Patient encounter procedure Donald Alberts DO Work Phone: Neurology Comment on above: PD (Parkinson's dise ase) ([facility]) (Primary Dx); Dysarthria Start: 05-23-2022 Encounter for preprocedural laboratory examination DR NIKHIL GUAJARDO . [facility] Start: 05-22-2022 End: 05-22-[address] NIKHIL GUAJARDO . Facility:[facility] Start: 05-18-2022 End: 05-19-[address] NIKHIL GUAJARDO . Facility:[facility] Start: 05-18-2022 End: 05-19-2022 Encounter for preprocedural laboratory examination DR NIKHIL GUAJARDO . Facility:[facility] Start: 05-15-2022 End: 05-16-[address] NIKHIL GUAJARDO . Facility:[facility] Start: 05-09-2022 End: 05-10-[address] NATHAN BOLTON Facility: Plan of Treatment Date Care Activity Detail Author Start: 06-20-2024 DIABETES SCREEN DIABETES SCREEN [facility] Start: 06-20-2024 [facility] Start: 06-18-2024 End: 06-18-2024 Patient encounter procedure 06/18/2024 9:30 AM EST Office Visit Neurology [address] [place] [address] Donald Alberts, DO [address] [place] [address] Return in about 6 months (around 06/27/2024). Neurology Comment on above: Return in about 6 mo nths (around 06/27/2024). Start: 12-05-2023 End: 12-05-2023 Patient encounter procedure 12/05/2023 2:45 PM EDT Procedure Visit [facility] [address] [place] [phone] Ayaz Santo DPM [address] [place], [place] [id number] [facility] Start: 12-02-2023 End: 12-02-2023 Patient encounter procedure 12/02/2023 10:45 AM EDT Office Visit [facility] [address] [place] [address] Nathan Bolton MD [address] [place] [phone] [facility] Start: 09-24-2023 Hemoglobin A1c measurement Maritza betes: Hemoglobin A1C [facility] Start: 09-10-2023 End: 09-10-2024 RF Upper gastrointestinal tract and Small bowel Single view W contrast PO FL upper GI double contrast w KUB Imaging Routine Epigastric abdominal pain Expected: 09/10/2023, Expires: 09/10/2024 [facility] Comment on above: Expected: 09/10/2023 , Expires: 09/10/2024 Start: 09-10-2023 End: 09-10-2024 US Gallbladder US gallbladder Imaging Routine Epigastric abdominal pain Expected: 09/10/2023, Expires: 09/10/2024 [facility] Work Phone: Comment on above: Expected: 09/10/2023 , Expires: 09/10/2024 Start: 09-10-2023 End: 09-10-2023 Patient encounter procedure 09/10/2023 11:45 AM EST [facility] [address] [place] [phone] Nathan Bolton MD [address] [place] [address] [facility] Comment on above: [facility] Start: 07-29-2023 Advance Directive Discussion Advance Directive Discussion [facility] Start: 07-29-2023 Behavioral Health Screening Behavioral Health Screening [facility] Start: 03-29-2023 Covid-19 Vaccine () Covid-19 Vaccine () [facility] Start: 03-29-2023 Influenza vaccination INFLUENZA (#1) [facility] Start: 08-26-2022 COVID-19 VACCINE (6 - Pfizer series) COVID-19 VACCINE (6 - Pfizer series) [facility] Start: 07-29-2022 ADVANCE DIRECTIVE DISCUSSION ADVANCE DIRECTIVE DISCUSSION [facility] Start: 07-29-2022 DEPRESSION ASSESSMENT DEPRESSION ASS ESSMENT [facility] Start: 07-29-2021 ADVANCE DIRECTIVE DISCUSSION ADVANCE DIRECTIVE DISCUSSION [facility] Start: 07-29-2021 DEPRESSION ASSESSMENT DEPRESSION ASS ESSMENT [facility] Start: 05-28-2017 Urine microalbumin profile DTa P,Tdap,Td Vaccine (1 - Tdap) [facility] Start: 2011 PNEUMOCOCCAL: 65+ (1 - PCV) PNEUMOCOCCAL: 65+ (1 - PCV) [facility] Start: 2006 RSV Vaccine (1 - 1-d ose 60+ series) RSV Vaccine (1 - 1-dose 60+ series) [facility] Start: 1996 SHINGRIX VACCINE (1 of 2) FRIAS GRIX VACCINE (1 of 2) [facility] Start: 1991 COLOGUARD (FIT-DNA) COLOGUARD (FIT-D NA) [facility] Start: 1991 Colonoscopy COLONOSCOPY [facility] Start: 1991 COLORECTAL CANCER SCREENING COLORECTAL CANCER SCREENING [facility] Start: [address] COLONOGRAPHY [facility] Start: 1991 FECAL OCCULT BLOOD FECAL OCCULT BLOO D [facility] Start: 1991 SIGMOIDOSCOPY SIGMOIDOSCOPY [facility] Start: 1981 LIPID SCREEN LIPID SCREEN [facility] Start: 1965 Urine microalbumin profile DTAP,TDAP ,TD (1 - Tdap) [facility] Start: 1965 Urine screening for protein Diabetes: Urine Protein Screening [facility] Start: 1964 HEPATITIS C SCREENING HEPATITIS C [facility] Start: 1964 Hepatitis C screening Hepatitis C [facility] Start: 1956 Glaucoma screening Diabetes: R etinopathy Screening [facility] Start: 1946 Medicare Annual Well ness (AWV) Medicare Annual Wellness (AWV) [facility] End: 07-06-2023 Mri brain brain stem w/o contrast material MRI BRAIN WO IVCON Radiology Routine PD (Parkinson's disease) (HCC) Dysarthria 1 Occurrences starting 06/06/2022 until 07/06/2023 [facility] Work Phone: Comment on above: 1 Occurrences starti ng 06/06/2022 until 07/06/2023 [facility] Immunizations Immunization Date Immunization Notes Care Provider Fa cili 04-22-2023 Influenza, Seasonal, Quadrivalent, Adjuvanted Nathan Bolton MD Work Phone: [facility] 04-23-2022 Influenza, High-dose Seasonal, Quadrivalent, Preservative Free Nathan Bolton MD Work Phone: [facility] 04-27-2021 Influenza, Seasonal, Quadrivalent, Adjuvanted Nathan Bolton MD Work Phone: [facility] 05-05-2020 Influenza, Seasonal, Quadrivalent, Adjuvanted Nathan Bolton MD Work Phone: [facility] 05-18-2019 Influenza, injectabl e, Madin [place] Canine Kidney, preservative free, quadrivalent Nathan Bolton MD Work Phone: [facility] 11-20-2018 zoster vaccine recombinant Jade Bolton MD Work Phone: [facility] 05-13-2018 Seasonal trivalent influenza vaccine, adjuvanted, preservative free Nathan Bolton MD Work Phone: [facility] 02-17-2018 zoster vaccine recombinant Jade Bolton MD Work Phone: [facility] 09-06-2017 pneumococcal polysaccharide vaccine, 23 valent Nathan Bolton MD Work Phone: [facility] 05-27-2017 tetanus and diphther ia toxoids, adsorbed, preservative free, for adult use (5 Lf of tetanus toxoid and 2 Lf of diphtheria toxoid) Nathan Bolton MD Work Phone: [facility] 04-29-2017 influenza, high dose seasonal, preservative-free Nathan Bolton MD Work Phone: [facility] 05-30-2016 influenza, high dose seasonal, preservative-free Nathan Bolton MD Work Phone: [facility] 05-30-2016 pneumococcal conjuga te vaccine, 13 valent Nathan Bolton MD Work Phone: [facility] 06-08-2015 influenza, high dose seasonal, preservative-free Nathan Bolton MD Work Phone: [facility] Payers Date Payer Category Payer Medicare [id number] 1958 Medicare [id number] 1945 Unknown [id number] 2.16.84 [id number] 1945 Unknown [id number] 2.16.84 0.1.524042.3.579.2.593 1945 Unknown [id number] 2.16.84 0.1.960214.3.579.2.593 1945 Unknown [id number] 2.16.84 0.1.162505.3.579.2.593 1945 Unknown [id number] 2.16.84 0.1.887935.3.579.2.593 1945 Unknown [id number] 2.16.84 0.1.785594.3.579.2.593 1945 Unknown [id number] 2.16.84 0.1.096293.3.579.2.593 1945 Unknown [id number] 2.16.84 0.1.383894.3.579.2.593 1945 Unknown [id number] 2.16.84 0.1.683934.3.579.2.593 1945 Unknown [id number] 2.16.84 0.1.762877.3.579.2.593 1945 Unknown [id number] 2.16.84 0.1.519223.3.579.2.593 1945 Unknown [id number] 2.16.84 0.1.124178.3.579.2.1259 1945 Unknown [id number] 2.16.84 0.1.776464.3.579.2.1259 1945 Unknown [id number] 2.16.84 0.1.048997.3.579.2.1259 1945 Unknown [id number] 2.16.84 0.1.731146.3.579.2.1259 1945 Unknown [id number] 2.16.84 0.1.200797.3.579.2.1259 Social History Date Type Detail Facility Start: 03-27-2019 End: 12-05-2022 Tobacco smoking status NHIS Never smoked tobacco [facility] Start: 03-27-2019 End: 12-05-2022 Tobacco use and exposure Smokeless tobacco non-user [facility] Start: 10-14-2020 End: 12-26-2023 Alcohol intake Lifetime non-drinker (finding) [facility] Start: 03-27-2019 History SDOH Alcohol Frequency 1 [facility] Start: 1945 Sex Assigned At Male C [facility] Start: 05-27-2022 End: 06-06-2022 Exposure to SARS-CoV-2 (event) Not sure [facility] Start: 12-05-2022 End: 12-25-2023 History of Social function [facility] Start: 12-05-2022 End: 12-25-2023 Tobacco use panel [facility] Adult Depression Screening Assessment 0 [facility] Start: 03-30-2019 Gender identity Identifies as male gender (finding) [facility] How often to you hav e a drink containing alcohol? Never [facility] Within the last year , [...] al Text Equipment Identifier Dates once daily. [id number], [id number] Start: 12-15-2018 Comment on above: once daily. Clinical Notes 05-15-2022 to 12-26-2023 Patient InstructionsDonald Alberts DO - 12/26/2023 1:20 PM Kit Bolton MD - 09/10/2023 12:[address] Bolton MD - 09/10/2023 11:45 AM ESTPatient Instructions Note Date & Type Note Facility 12-26-2023 Instructions Donald Alberts DO - 12/26/2023 1:40 PM EDT Medications 8A 11A 2P 5P Sinemet 25/100 2 2 2 2 Azilect 1mg 1 0 0 0 a. Take Sinemet 30 minutes before meals or 60 minutes after meals. Avoid taking this medication with high protein meals. b. If nausea develops, try taking Sinemet with crackers or bread. c. If nausea still persists, please call. Avoid taking anti-nausea medications before speaking with us. Avoid Reglan, Compazine or Phenergan. documented in this encounter [facility] 12-26-2023 History of Present illness Narrative [facility] - FOLLOW UP EVALUATION Donald Alberts [address] [facility] [address] Nathan Bolton MD [address] [facility] [address] Herrera Martinez is a 78 year old male with a history of PD. He is seen with his . Interval History Since Last Visit: The patient is having more issues with falling. 4(four) falls. Going to PT and DtD. Better with U-STEP Walking Stabilizer Walker. Wearing-off causes lots of trouble with his walking. More festinating. More jwvbchxj-ef-ilxz (FOG). The patient denies any recent illness or infections. The patient denies any hospitalization since the last office visit. The patient denies any changes to their medical history or new diagnoses. The patient denies any surgery/procedure since their last visit. The patient denies any headache, chest pain, palpitations, shortness of breath or abdominal pain. The patient denies any seizures, numbness/tingling, lightheadedness or vertiginous symptoms. The patient denies any recent suicidal ideation or attempts to harm themselves or others. The patient denies any new pain. Seeing the pain doctor about his sciatica. Investigated for dislocated tailbone. Has swallowing and drooling. Not interested/ready for botulinum toxin (Myobloc) injections Parkinson's Medications Schedule: Medications 8A 1130A 3P 6P Sinemet 25/100 1.5 1.5 1.5 1.5 Azilect 1mg 1 0 0 0 Previous Parkinson's Medications: None In addition, the following Parkinson-associated features were evaluated: Daily activities Difficulties with eatin (none) Difficulties in dressing: Yes (slight) Difficulties with hygiene activities: Yes (mild) Difficulties with handwriting: Yes (moderate) Difficulties with doing hobbies and other activities: Yes (slight) Difficulties turning in bed: Yes (slight) Difficulties getting out of bed, car or chair: Yes (mild) Tremors/Gait/Balance Shaking or tremors: 0 (none) Walking and balance problems: Yes (slight) Gait freezing: Yes (mild) Autonomic/Pain Lightheadeness on standing: Yes (mild) Urinary problems: 0 (none) Constipation problems: 0 (none) Pain and other sensations: Yes (slight) Speech/Swallowing Speech problems: Yes (mild) Drooling: Yes (severe) Chewing and swallowing problems: Yes (moderate) Sleep/Fatigue Problems sleeping at night: Yes (slight) Daytime sleepiness: Yes (mild) Fatigue: Yes (slight) Mood/Behavior/Cognition Depression: PQH-9 = 3 usually representing no significant (0-4) depression. Anxiety: JULIO C-7 = 1 usually representing no significant (0-4) anxiety. Finally, the following table shows the patient's overall global physical and mental health using the PROMIS scale relative to the previous visit: PROMIS-10 Flowsheet Row Office Visit from 12/26/2023 in Neurology Office Visit from 06/14/2023 in Neurology Global Physical Health T Score 44.9 42.3 Global Mental Health T Score 50.8 50.8 0-10 Standard Pain Scale 3 3 *PROMIS-10 scoring scale: mean = 50, over 50 is above average, under 50 is below average Allergies: ALLERGIES No Known Allergies Current Medications: Current Outpatient Medications Medication Sig glipiZIDE (GLUCOTROL XL) 5 mg 24 hr tablet Take 5 mg by mouth two times a day. ONETOUCH ULTRA BLUE TEST STRIP test strip once daily. ONETOUCH ULTRASOFT LANCETS lancets once daily. meloxicam (MOBIC) 7.5 mg tablet Take 7.5 mg by mouth once daily. metFORMIN ER (GLUCOPHAGE XR) 500 mg 24 hr tablet 500 mg once daily. metoprolol succinate ER (TOPROL XL) 50 mg 24 hr tablet 50 mg once daily. 1/2 tablet daily ramipril (ALTACE) 1.25 mg capsule 1.25 mg [...] MEN'S ORAL) Take by mouth once daily. omeprazole (PRILOSEC) 40 mg capsule Take 40 mg by mouth two times a day. One in am and one at pm atropine 1 % ophthalmic solution 1-2 drops as need for drooling daily rasagiline (AZILECT) 1 mg tab Take 1 tablet by mouth once daily. carbidopa-levodopa (SINEMET) 25-100 mg per tablet Take 2 tablets by mouth four times daily. [Every 3-hours] No current facility-administered medications for this visit. Objective: Vital Signs: BP 109/70 (BP Site: Left Arm, BP Position: Sitting, BP Cuff Size: Small Adult) Pulse 74 General Medical Examination: General Description of Patient: Well appearing, comfortable Head:normocephalic, atraumatic Neck:No bruits, full range of movement, supple Cardiac: Regular rate and rhythm, no murmur Extremities: No leg edema, pulses intact, no [...] No focal weakness appreciated on examination. Sensory There is no evidence for a stocking-glove gradient in bilateral extremities. Dual simultaneous stimulation is intact. Reflexes Right Left Brachioradialis 2+ 2+ Biceps 2+ 2+ Triceps 2+ 2+ Patellar 2+ 2+ Right pathological reflexes: Kirstin's absent. Left pathological reflexes: Kirstin's absent. Coordination Right: Xvcqrj-go-rkxo normal. Rapid alternating movement normal.Left: Ojeivb-pq-hqev normal. Rapid alternating movement normal. Gait Casual gait: Wide stance. Reduced stride length. Shuffling gait. Reduced right arm swing. Reduced left arm swing. Abnormal pull test. Unable to rise from chair without using arms. The patient did not require assistive devices to ambulate. Parkinson's Scales Performed: MDS-UPDRS Motor subscale condition of exam Medication Off/On/Naiive ON Time of UPDRS 1335 Time of Last Medication 1100 Last Medication Taken 1.5 SINEMET 25/100 DBS Right DBS Left MDS-UPDRS Motor subscale scores Speech 3-Moderate. Speech is difficult to understand to the point that some, but not most sentences are poorly understood. Facial Expression 3-Moderate. Masked facies with lips parted some of the time when the mouth is at rest. Rigidity Neck 3-Moderate. Rigidity detected without the activation maneuver. Full range of motion is achieved with effort. Rigidity Right Upper Extremity 3-Moderate. Rigidity detected without the activation maneuver. Full range of motion is achieved with effort. Rigidity Left Upper Extremity 3-Moderate. Rigidity detected without the activation maneuver. Full range of motion is achieved with effort. Rigidity Right Lower Extremity 3-Moderate. Rigidity detected without the activation maneuver. Full range of motion is achieved with effort. Rigidity Left Lower Extremity 4-Severe. Rigidity detected without the activation maneuver and full range of motion not achieved. Finger Taps Right 2-Mild. a) 3 to 5 interruptions during tapping, b) mild slowing, c) the amplitude decrements midway in the 10-tap sequence. Finger Taps Left 2-Mild. a) 3 to 5 interruptions during tapping, b) mild slowing, c) the amplitude decrements midway in the 10-tap sequence. Hand Movements Right 2-Mild. a) 3 to 5 interruptions during the movements, b) mild slowing, c) the amplitude decrements midway in the task. Hand Movements Left 2-Mild. a) 3 to 5 interruptions during the movements, b) mild slowing, c) the amplitude decrements midway in the task. Arm Movements Right 3-Moderate. a) more than 5 interruptions during the movement or at least one longer arrest (freeze) in ongoing movement, b) moderate slowing, c) the amplitude decrements starting after the 1st supination-pronation sequence. Arm Movements Left 3-Moderate. a) more than 5 interruptions during the movement or at least one longer arrest (freeze) in ongoing movement, b) moderate slowing, c) the amplitude decrements starting after the 1st supination-pronation sequence. Toe Taps Right 3-Moderate. a) more than 5 interruptions during the tapping movements or at least one longer arrest (freeze) in ongoing movement, b) moderate slowing, c) the amplitude decrements starting after the first tap. Toe Taps Left 3-Moderate. a) more than [...] after the first tap. Leg Agility Left 3-Moderate. a) more than 5 interruptions during the movement or at least one longer arrest (freeze) in ongoing movement, b) moderate slowing in speed, c) amplitude decrements after the first tap. Arise From Chair 2-Mild. Pushes self up from arms of chair without difficulty. Gait 2-Mild. Independent walking but with substantial gait impairment. Gait Freezing 1-Slight. Freezing on starting, turning, or walking through doorway with a single halt during any of these events, but then continues smoothly without freezing during straight walking. Posture Stability 3-Moderate. Stands safely, but with absence of postural response, falls if not caught by examiner. Posture 3-Moderate. Stooped posture, scoliosis or leaning to one side that cannot be corrected volitionally to a normal posture by the patient. Body Bradykinesia 2-Mild. Mild global slowness and poverty of spontaneous movements. [...] 0-Normal. No tremor. Rest Tremor Amplitude Left Lower Extremity 0-Normal. No tremor. Rest Tremor Amplitude Lip/Jaw 0-Normal. No tremor. Rest Tremor Constancy 0-Normal. No tremor. MDS-UPDRS Motor subscale totals Left Total 20 Right Total 19 Midline Total 22 Tremor Total / 10 0 PIGD Total / 3 6 Overall Total 61 % Change Compared to Last Filed Total Based on today's exam the patient is Suly and Yahr stage 4 (Severe disability; still able to walk or stand unassisted). Assessment and Plan: Mr. Martinez is a 78 year old male with idiopathic Parkinson's disease. The following are the current problems noted and addressed during this visit: Parkinson's disease without dyskinesia or fluctuating manifestations (hcc) (primary encounter diagnosis) Sialorrhea Pd (parkinson's disease) (hcc) Plan: Increase Sinemet Trial of atropine; hold Myobloc D/W PT about walking dicks or U-STEP Walking Stabilizer Walker Return in about 6 months (around 06/27/2024). Medical decision making was high complexity due to patient's, advancing disease, difficult medication management, and high side effect risk The total time spent on the patient care was 22 minutes with greater than 50% of the time spent on counseling regarding preparing to see the patient, vnnh-hy-dwqn patient care, completing clinical documentation, obtaining and/or reviewing separately obtained history, performing a medically appropriate examination, counseling and educating the patient/family/caregiver, ordering medications, tests, or procedures, and communicating results to the patient/family/caregiver. I tried to answer all of the patient's questions and concerns during this visit. Donald Alberts, Senior Staff Neurologist - [facility] documented in this encounter [facility] 09-10-2023 History of Present illness Narrative Associated [...] contrast w KUB documented in this encounter [facility] 06-14-2023 Note HNO ID: [id number] Author: Donald Alberts, DO Service: ? Author Type: Physician Type: Progress Notes Filed: 06/14/2023 3:34 PM Note Text: [facility] - FOLLOW UP EVALUATION Nathan Bolton MD [address] [facility] [id number] Herrera Martinez is a 77 year old male with a history of PD. He is seen with his . Interval History Since Last Visit: The patient had a swallowing test in late november 2022 - no issues other than more focus on swallowing was made to the patient. He is going to DIRECTOR CLINICAL APPLICATIONS still. 1 fall in November o/w doing [...] Cardiac: Regular r (more content not included)... [facility] 02-20-2023 Miscellaneous Notes Last appt 12/05/22 MTG Requested Prescriptions Pending Prescriptions Disp Refills carbidopa-levodopa (SINEMET) 25-100 mg per tablet 540 tablet 3 Sig: Take 1.5 tablets by mouth four times daily. documented in this encounter [facility] 12-13-2022 Note PROCEDURE: XR HIP [...] authenticated by: AYAZ NICOLE Date: 2022-12-13 09:47 [facility] 12-13-2022 Note PROCEDURE: XR FOREAR M [...] authenticated by: AYAZ NICOLE Date: 2022-12-13 09:43 [facility] 12-13-2022 Note PROCEDURE: XR FOREAR M [...] authenticated by: AYAZ NICOLE Date: 2022-12-13 09:43 [facility] 12-05-2022 Note HNO ID: [id number] Author: Donald Alberts, DO Service: ? Author Type: Physician Type: Progress Notes Filed: 12/05/2022 2:18 PM Note Text: [facility] - FOLLOW UP EVALUATION Donald Alberts [address] [facility] [address] Nathan Bolton MD [address] [facility] [address] Herrera Martinez is a 77 year old male with a history of parkinsonism. He is seen with family. Interval History Since Last Visit: He is falling. There is more vmfdveoz-ax-natn (FOG) - this is the cause of the falls. He has fallen while he is carrying things. Multitasking is a big issue. There were two falls in the post op period following cataract surgery. FOG seems to be worse in the PM. There is drooling at night. The mucous in the back of the throat is the issue. No DIRECTOR CLINICAL APPLICATIONS for 6 years. The Sinemet is not [...] Right pathological reflex (more content not included)... [facility] 12-05-2022 Instructions Donald Alberts, - 12/05/2022 2:12 PM EDT Medications 8A 1130A 3P 6P Sinemet 25/100 1.5 1.5 1.5 1.5 Azilect 1mg 1 0 0 0 documented in this encounter [facility] 12-05-2022 History of Present illness Narrative [facility] - FOLLOW UP EVALUATION Donald Alberts [address] [facility] [address] Nathan Bolton MD [address] [facility] [address] Herrera Martinez is a 77 year old male with a history of parkinsonism. He is seen with family. Interval History Since Last Visit: He is falling. There is more oushhrcw-si-onbe (FOG) - this is the cause of the falls. He has fallen while he is carrying things. Multitasking is a big issue. There were two falls in the post op period following cataract surgery. FOG seems to be worse in the PM. There is drooling at night. The mucous in the back of the throat is the issue. No DIRECTOR CLINICAL APPLICATIONS for 6 years. The Sinemet is not [...] Left pathological reflexes: Kirstin's absent. Coordination Right: Jivyiu-va-ohlf normal. Rapid alternating movement normal.Left: Ktcske-ki-vbvg normal. Rapid alternating movement normal. Gait Casual [...] addressed during this visit: Pd (parkinson's disease) ([facility]) (primary encounter diagnosis) Sialorrhea Hypophonia Plan: Continue current antiparkinsonian regimen as dosed other than increasing Sinemet 2. PA for botulinum toxin (Myobloc) injections 3. DIRECTOR CLINICAL APPLICATIONS locally for swallow evaluation Return in about 6 months (around 06/07/2023). Medical decision making was high complexity due to patient's, multiple symptoms, advancing disease The total time spent on the patient care was 30 minutes with greater than 50% of the time spent on counseling regarding preparing to see the patient, inqi-yb-fgwd patient care, completing clinical documentation, obtaining and/or reviewing separately obtained history, performing a medically appropriate examination, counseling and educating the patient/family/caregiver, ordering medications, tests, or procedures, communicating with other HCPs (not separately reported), communicating results to the patient/family/caregiver, and care coordination (not separately reported) Donald Alberts DO Senior Staff Neurologist - [facility] Diagnosis: Sialorrhea (K11.7) Current Examination: There [...] EMG guidance: Yes documented in this encounter [facility] 09-27-2022 Note OPERATIVE NOTE OPERATION [...] ensuring mobility, phacoemulsification was performed in a hxfzvzk-duz-qscfcc-type fashion. After all nuclear material had been [...] the following day for postoperative care. [facility] 09-27-2022 Note PREOPERATIVE HISTORY AND PHYSICAL [...] go forward with his elective procedure. [facility] 09-10-2022 Miscellaneous Notes Requested Prescriptions Pending Prescriptions Disp Refills rasagiline (AZILECT) 1 mg tab 90 tablet 1 Sig: Take 1 tablet by mouth once daily. documented in this encounter [facility] 08-30-2022 Note OPERATIVE NOTE OPERATION [...] ensuring mobility, phacoemulsification was performed in a qopxpvu-vit-znkmor-type fashion. After all nuclear material had been [...] the following day for postoperative care. [facility] 08-30-2022 Note HISTORY AND PHYSICAL EXAMINATION [...] go forward with his elective procedure. [facility] 06-27-2022 Note CONSULTATION CONSULTATION DATE: 06/27/2022 [...] follow up on a p.r.n. basis. [facility] 06-22-2022 Miscellaneous Notes I spoke with Mr. Martinez to inform her MRI for Herrera is normal per Dr. Patino. ----- Message from Juan Patino MD sent at 06/20/2022 2:51 PM EST ----- Regarding: MRI results Suzanne, I am covering for Dr. Alberts today. Please let this patient know that his MRI results came back normal. Thanks, Dr. Patino documented in this encounter [facility] 06-20-2022 Note HNO ID: [id number] Author: RT Elo(Gideon) Service: Radiology Author Type: Technologist Type: Progress [...] RT Elo(R) June 20, 2022 1:[address] [facility] 06-06-2022 History of Present illness Narrative [facility] - FOLLOW UP EVALUATION Nathan Bolton MD [address] [facility] [address] Herrera Martinez is a 76 year old male with a history of PD. He is seen with his . Interval History Since Last Visit: The patient notes that he is more clumsy - the speech has worsened over the last couple of weeks. the walking has had more ygwouelo-aq-utsn (FOG). No falls are noted. The notes [...] Left pathological reflexes: Kirstin's absent. Coordination Right: Wuqoww-be-lrhc normal. Rapid alternating movement normal. Left: Ttkxvz-pz-khrj normal. Rapid alternating movement normal. Gait Casual [...] counseling regarding preparing to see the patient, thfs-tg-smpy patient care, completing clinical documentation, obtaining and/or reviewing separately obtained history, performing a medically appropriate examination, counseling and educating the patient/family/caregiver, ordering medications, tests, or procedures, and communicating results to the patient/family/caregiver. I tried to answer all of the patient's questions and concerns during this visit. Donald Alberts DO Senior Staff Neurologist - [facility] documented in this encounter [facility] 05-15-2022 Note CONSULTATION CONSULTATION DATE: 05/15/2022 CHIEF COMPLAINT: Low back pain, posterior thigh pain. HISTORY OF PRESENT ILLNESS: This is a very pleasant, 76-year-old gentleman who is accompanied by his . The patient suffers from Parkinson's. The patient is being treated at [facility] with regards to this. The [...] patient currently takes Mobic 7.5 daily, Tylenol ziqh-buc-ubdasat. The patient also is on Sinemet, metformin, [...] mg IM. CC: Nathan Bolton M.D. [facility] Evaluation note Diagnosis PD (Parkinson's disease) ([facility])- Primary Paralysis agitans Dysarthria [facility] Diagnosis PD (Parkinson's disease) (HCC)- Primary Paralysis agitans Sialorrhea Disturbance of salivary secretion Hypophonia Other voice and resonance disorders [facility] Diagnosis PD (Parkinson's disease) (HCC) Paralysis agitans [facility] Diagnosis Sialorrhea- Primary Disturbance of salivary secretion [facility] Diagnosis Epigastric abdominal pain- Primary Abdominal pain, epigastric documented in this encounter [facility]* Diagnosis Parkinson's disease without dyskinesia or fluctuating manifestations (HCC)- Primary Sialorrhea Disturbance of salivary secretion documented in this encounter [facility] Summary Purpose Family History No Family History [...] OFFICE/OUTPATIENT NEW HIGH MDM 60-74 MINUTES Donald Alberts DO [address] [place] [id number] Referral ID Status Reason Start Date Expiration Date V isits Requested Visits Authorized [id number] Pending Review 12/04/2022 03/04/2023 1 1 Specialty Diagnoses / Procedures Referred By El chaves Referred To Contact MR IMAGING Diagnoses PD (Parkinson's disease) (HCC) Dysarthria Procedures MRI BRAIN WO IVCON MRI BRAIN BRAIN STEM W/O CONTRAST MATERIAL Donald Alberts DO [address] [place] [id number] Mr Imaging Referral ID Status Reason Start Date Expiration Date Visits Requested Visits Authorized [id number] Authorized Auto-Generat ed Referral 06/06/2022 07/06/2023 1 1 Specialty Diagnoses / Procedures Referred By El chaves Referred To Contact Diagnoses PD (Parkinson's disease) (HCC) Procedures PROVIDER ORDERED FOLLOW UP OFFICE/OUTPATIENT NEW HIGH MDM 60-74 MINUTES Donald Alberts, DO [address] [place] [address] Referral ID Status Reason Start Date Expiration Date V isits Requested Visits Authorized [id number] Pending Review 06/07/2023 09/05/2023 1 1 Specialty Diagnoses / Procedures Referred By El chaves Referred To Contact [facility] Diagnoses PD (Parkinson's disease) (HCC) Sialorrhea Hypophonia Procedures CONSULT TO SPEECH THERAPY OFFICE/OUTPATIENT [facility] MDM 60-74 MINUTES Donald Alberts, [address] [place] [id number] [facility] [address] [place] [address] Referral ID Status Reason Start Date Expiration Date Visits Requested Visits Authorized [id number] Pending Review Auto-Generat ed Referral 12/05/2022 12/05/2023 1 1 Additional Source Comments (unrecognized sect ion and content) No Status Records FoundNo Status Records FoundNo Status Records FoundNo Status Records FoundNo Status Records FoundNo Status Records Found INFORMATION SOURCE (unrecogn ized section and content) DATE CREATED AUTHOR 03/26/2020 [facility] DATE CREATED AUTHOR AUTHOR'S ORGANIZ ATION 11/22/2020 [facility] DATE CREATED AUTHOR AUTHOR'S ORGANIZ ATION 06/22/[address] [facility] DATE CREATED AUTHOR AUTHOR'S ORGANIZ ATION 01/04/2023 [facility] DATE CREATED AUTHOR AUTHOR'S ORGANIZ ATION 06/17/2023 [facility] DATE CREATED AUTHOR AUTHOR'S ORGANIZ ATION 12/13/2023 [facility] EPIC Source Comments (unrecognize d section and content) In the event this informatio n is protected by the Federal Confidentiality of Alcohol and Drug Abuse Patient Records regulations: The Federal rules restrict any use of the information to criminally investigate or prosecute any alcohol or drug abuse patient.[facility] the event this information is protected by the Federal Confidentiality of Alcohol and Drug Abuse Patient Records regulations: The Federal rules restrict any use of the information to criminally investigate or prosecute any alcohol or drug abuse patient.[facility] the event this information is protected by the Federal Confidentiality of Alcohol and Drug Abuse Patient Records regulations: The Federal rules restrict any use of the information to criminally investigate or prosecute any alcohol or drug abuse patient.[facility] the event this information is protected by the Federal Confidentiality of Alcohol and Drug Abuse Patient Records regulations: The Federal rules restrict any use of the information to criminally investigate or prosecute any alcohol or drug abuse patient.[facility] the event this information is protected by the Federal Confidentiality of Alcohol and Drug Abuse Patient Records regulations: The Federal rules restrict any use of the information to criminally investigate or prosecute any alcohol or drug abuse patient.[facility] the event this information is protected by the Federal Confidentiality of Alcohol and Drug Abuse Patient Records regulations: The Federal rules restrict any use of the information to criminally investigate or prosecute any alcohol or drug abuse patient.[facility] the event this information is protected by the Federal Confidentiality of Alcohol and Drug Abuse Patient Records regulations: The Federal rules restrict any use of the information to criminally investigate or prosecute any alcohol or drug abuse patient.[facility] the event this information is protected by the Federal Confidentiality of Alcohol and Drug Abuse Patient Records regulations: The Federal rules restrict any use of the information to criminally investigate or prosecute any alcohol or drug abuse patient.[facility] the event this information is protected by the Federal Confidentiality of Alcohol and Drug Abuse Patient Records regulations: The Federal rules restrict any use of the information to criminally investigate or prosecute any alcohol or drug abuse patient.[facility] the event this information is protected by the Federal Confidentiality of Alcohol and Drug Abuse Patient Records regulations: The Federal rules restrict any use of the information to criminally investigate or prosecute any alcohol or drug abuse patient.[facility] Reason for Visit (unrecogniz ed section and content) Reason Comments Established Patient (Parkinson's disease Reason Comments Results MRI NL Reason Onset Date Comments Refill Request 09/10/2022 Reason Comments Follow Up Pt states that feet are freezing more frequently and is drooling during sleep. Has had a 4 falls in the last 6 weeks Specialty Diagnoses / Procedures Referred By lE chaves Referred To Contact Diagnoses PD (Parkinson's disease) (HCC) Dysarthria Procedures PROVIDER ORDERED FOLLOW UP OFFICE/OUTPATIENT NEW HIGH MDM 60-74 MINUTES Donald Alberts DO [address] [place] [address] Referral ID Status Reason Start Date Expiration Date V isits Requested Visits Authorized [id number] Pending Review 12/04/2022 03/04/2023 1 1 Reason Onset Date Comments Refill Request 02/19/2023 Reason Comments Abdominal Pain Pain goes from back to stomach Reason Onset Date Comments Refill Request 11/03/2023 Reason Comments Established Patient Follow Up Parkinson's Disease Specialty Diagnoses / Procedures Referred By El chaves Referred To Contact CARDIOLOGY Diagnoses Parkinson's disease without dyskinesia or fluctuating manifestations (HCC) Procedures PROVIDER ORDERED FOLLOW UP OFFICE/OUTPATIENT NEW HIGH MDM 60-74 MINUTES Donald Alberts DO [address] [place] [address] Card Jesús Buchanan [facility] [address] [place] [address] Referral ID Status Reason Start Date Expiration Date V isits Requested Visits Authorized [id number] Authorized 07/29/2023 07/28/2024 99 99 Care Teams (unrecognized sec tion and content) Foot Caster Relationship Specialty Start Date End Date Nathan Bolton [address] [place] [address] PCP - General Family Medicine 07/29/20 Foot Caster Relationship Specialty Start Date End Date Nathan Bolton [address] [place] [address] PCP - General Family Medicine 07/29/20 Foot Caster Relationship Specialty Start Date End Date Nathan Bolton [address] [place] [address] PCP - General Family Medicine 07/29/20 Foot Caster Relationship Specialty Start Date End Date Nathan Bolton [address] [place] [address] PCP - General Family Medicine 07/29/20 Foot Caster Relationship Specialty Start Date End Date Nathan Bolton [address] [place] [address] PCP - General Family Medicine 07/29/20 Foot Caster Relationship Specialty Start Date End Date Nathan Bolton [address] [place] [address] PCP - General Family Medicine 07/29/20 Foot Caster Relationship Specialty Start Date End Date Nathan Bolton [address] [place] [address] PCP - General Family Medicine 07/29/20 Foot Caster Relationship Specialty Start Date End Date Nathan Bolton MD [address] [place] [address] PCP - [facility] 09/10/23 Foot Caster Relationship Specialty Start Date End Date Nathan Bolton MD [address] [place] [id number] PCP - [facility] 09/10/23 Foot Caster Relationship Specialty Start Date End Date Nathan Bolton [address] [place], [place] [id number] PCP - [facility] 07/29/20 Foot Caster Relationship Specialty Start Date End Date Nathan Bolton [address] [place] [address] PCP - [facility] 07/29/20 FOR RECORDS PERTAINING TO PATIENTS [...] BE BASED ON THE PRIMARY CLINICAL RECORDS. [facility] [employer] [facility]. provides no warranty or guarantee of the accuracy or completeness of information in this document.
--- NOTE | 2024-02-02 09:09 | CT_ITS ---
[address] [address] Patient Name: TASHA NEWBERRY MRN: [id number] date: 1945 Sex: M Assigned Patient Location: ED.MAIN Current Patient Location: ER Accession/Order Number: [id number] Exam Date: 02/02/2024 10:18 Report Date: 02/02/2024 12:31 At the request of: CONNIE BERMUDEZ Procedure: CT head/brain wo con EXAMINATION: CT head/brain burroughs con HISTORY: trauma COMPARISON: 07/18/2023 TECHNIQUE: CT scan of the head was performed without IV contrast. CT dose reduction technique was used, including Automated Exposure Control. FINDINGS: There are no extra-axial fluid collections. There is no mass effect or midline shift. The cerebral ventricles and sulci are normal. The brain demonstrates normal attenuation. Basal cisterns are patent. There is bilateral subcortical and deep periventricular white matter chronic microvascular ischemia. Bilateral orbits, paranasal sinuses and mastoid air cells are patent. No skull base fracture. CT/CT head/brain wo con IMPRESSION: No acute traumatic intracranial process. Electronically authenticated by: LEANN MCGUIRE Date: 02/02/2024 12:31
--- NOTE | 2024-02-02 09:09 | CT_ITS ---
[address] [address] Patient Name: TASHA NEWBERRY MRN: [id number] date: 1945 Sex: M Assigned Patient Location: ED.MAIN Current Patient Location: Accession/Order Number: [id number] Exam Date: 02/02/2024 10:18 Report Date: 02/02/2024 11:41 At the request of: CONNIE BERMUDEZ Procedure: CT chest wo con EXAMINATION: CT chest wo con INDICATION: trauma. COMPARISON: None. TECHNIQUE: Multiple contiguous axial CT images of the chest were obtained without the use of intravenous contrast. Coronal and sagittal reformations were performed. Dose reduction techniques were achieved by using automated exposure control and/or adjustment of mA and/or kV according to patient size and/or use of iterative reconstruction technique. FINDINGS: TUBES AND LINES: None. LOWER NECK: No significant abnormality. CHEST: AIRWAYS, LUNGS AND PLEURA: Patent central airways. Mild bibasilar and dependent atelectasis. No acute infiltrate. No suspicious pulmonary nodules. No pleural effusion or pneumothorax. LYMPH NODES: No thoracic adenopathy. ESOPHAGUS: Normal esophagus. GREAT VESSELS: Nonaneurysmal thoracic aorta. Normal caliber main pulmonary trunk. HEART AND PERICARDIUM: The heart is normal in size. Moderate coronary artery calcifications. No pericardial effusion. UPPER ABDOMEN: Diffuse fatty infiltration of the liver. MUSCULOSKELETAL: SOFT TISSUES: Unremarkable soft tissues. BONES: Acute nondisplaced fracture of the superior sternum. No other acute fracture identified. No suspicious osseous lesions. LYNCH: (series:images) CT/CT chest wo con IMPRESSION: 1. Acute nondisplaced sternal fracture. 2. No acute posttraumatic intrathoracic abnormality. Electronically authenticated by: JAMA CARDOSO Date: 02/02/2024 11:41
--- NOTE | 2024-02-02 09:09 | CT_ITS ---
The [address] [address] Patient Name: TASHA NEWBERRY MRN: [id number] date: 1945 Sex: M Assigned Patient Location: ED.MAIN Current Patient Location: Accession/Order Number: [id number] Exam Date: 02/02/2024 10:18 Report Date: 02/02/2024 12:00 At the request of: CONNIE BERMUDEZ Procedure: CT facial bones wo con CT SCAN OF THE FACE WITH CONTRAST HISTORY: 78-year-old male with recent trauma. TECHNIQUE: Multiple axial images are performed through the facial bones from the level above the frontal sinuses down through the mandible. Images are then reconstructed in the sagittal and coronal planes.This exam was performed according to our departmental dose-optimization program which includes use of Automated Exposure Control, adjustment of the mA and/or kV according to patient size and/or use of iterative reconstruction technique. Without contrast. Contrast: None. COMPARISON: None. FINDINGS: Bones: There is a well-corticated crescentic lucency which is seen in the midline of the mandible that measures 12 mm. This does not appear to be acute. There is some soft tissue swelling which is seen around the mandible at this level. Evaluation of the maxilla is limited due to motion artifact. Mineralization: Bone mineralization is decreased. Soft tissues: Soft tissues are mildly edematous. Paranasal sinuses: The paranasal sinuses are well aerated. Mastoid air cells: The mastoid air cells are well aerated. Orbits: Orbits demonstrate postoperative changes from prior cataract resection with prosthetic lens implant. CT/CT facial bones wo con IMPRESSION: 1. Well-corticated crescentic lucency which is seen in the midline of the mandible that measures 12 mm. This does not appear to be acute. Differential could include the odontogenic cyst versus ameloblastoma versus traumatic bone cyst. However, other etiologies are not excluded. Recommend patient follow up with her dentist to provide your for follow-up imaging. 2. Evaluation of the maxilla is limited due to significant streak artifact from dental hardware and some motion artifact. No definite. Displaced fracture. Electronically authenticated by: CHARLIE GUADARRAMA Date: 02/02/2024 12:00
--- NOTE | 2024-02-02 09:10 | ECG_ITS ---
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
[2024-02-02] MEDS: KETOROLAC TROMETHAMINE 30 MG/ML VIAL 15 MG IVP (09:32)
[2024-02-02 09:43] LABS: Basophils Percent Auto 0.4 % (0.2-2.0); Eosinophils Absolute Auto 0.1 10^3/uL (0.0-0.7); Eosinophils Percent Auto 2.1 % (0.9-7.0); Hematocrit 45.7 % (42.0-54.0); Hemoglobin 15.8 g/dL (14.0-18.0); Immature Granulocytes Abs Auto 0.01 10^3/uL (0.00-0.03); Immature Granulocytes Pct Auto 0.2 % (0.0-0.5); Lymphocytes Absolute Auto 1.1 10^3/uL (1.2-3.8); Lymphocytes Percent Auto 20.9 % (20.5-60.0); Mean Corpuscular HGB Conc 34.6 g/dL (29.9-35.2); Mean Corpuscular Hemoglobin 30.9 pg (25.9-34.0); Mean Corpuscular Volume 89.4 fL (80.0-94.0); Mean Platelet Volume 10.9 fL (9.5-13.5); Monocytes Absolute Auto 0.4 10^3/uL (0.3-0.8); Neutrophils Absolute Auto 3.6 10^3/uL (1.4-6.5); Neutrophils Percent Auto 68.4 % (43.0-75.0); Platelet Count 109 10^3/uL (150-450); Red Blood Count 5.11 10^6/uL (4.70-6.10); White Blood Count 5.3 10^3/uL (4.0-11.0)
[2024-02-02 09:57] LABS: Alanine Aminotransferase 13 U/L (16-63); Albumin Level 3.7 g/dL (3.4-5.0); Alkaline Phosphatase 78 U/L (46-116); Anion Gap 10.6; Aspartate Amino Transferase 29 U/L (15-37); BUN Creatinine Ratio 14.9; Calcium 8.8 mg/dL (8.5-10.1); Carbon Dioxide 29.7 mmol/L (21.0-32.0); Chloride 102 mmol/L (98-107); Estimated GFR (African America >60 (>=60); Estimated GFR (Non-African Ame >60 (>=60); Globulin 3.8 g/dL; Glucose 225 mg/dL (74-106); Potassium 4.3 mmol/L (3.5-5.1); Sodium 138 mmol/L (136-145); Total Protein 7.5 g/dL (6.4-8.2); Troponin I High Sensitivity 7.1 pg/mL (4.0-76.1)
--- NOTE | 2024-02-02 11:52 | CT_ITS ---
[address] [address] Patient Name: TASHA NEWBERRY MRN: [id number] date: 1945 Sex: M Assigned Patient Location: ER Current Patient Location: ER Accession/Order Number: [id number] Exam Date: 02/02/2024 12:33 Report Date: 02/02/2024 13:36 At the request of: CONNIE BERMUDEZ Procedure: CT angio chest EXAM: CT angio chest HISTORY: trauma fell 3 days ago with chest injury, pain. Sternal fracture or noncontrast chest CT. Question vascular injury. COMPARISON: CT chest noncontrast 02/02/2024 10:32 AM TECHNIQUE: CTA chest aortic protocol 02/02/2024 at 12:41 PM. Vascular scans with reformatted 3-D and MIP images obtained by the technologist on a separate workstation.. Individualized dose reduction used for this exam. contrast: 90 mL Omnipaque 350 FINDINGS: Aorta vascular: Normal size enhancement of the aortic arch without evidence of vascular injury or dissection. No periaortic hematoma. Normal branch pattern without stenosis off the arch. Normal pulmonary artery enhancement. Lungs: Increased groundglass density upper lobes along the fissure is most likely atelectasis. Basilar atelectasis slightly increased without consolidation or contusion. Pleura: No effusion, pneumothorax or hydropneumothorax. Mediastinum: No mass or adenopathy or hematoma. Normal central airways. Esophagus unremarkable. No lower neck or axillary mass, adenopathy or hematoma. Minimal nondepressed fracture body of the sternum again noted. No other fracture seen. No adjacent hematoma. No acute upper abdominal abnormality or injury. CT/CT angio chest IMPRESSION: 1. Normal aortic enhancement without evidence of vascular injury or mediastinal hematoma. 2. Minimal sternal fracture unchanged without adjacent fluid collection or hematoma. No other fracture seen. 3. Slight increased groundglass density in the upper lobes most likely atelectasis. Mild basilar atelectasis or scarring unchanged. No lung contusion or consolidation. No pleural effusion or pneumothorax. Electronically authenticated by: SULEMA VÁSQUEZ Date: 02/02/2024 13:36
--- NOTE | 2024-02-02 15:16 | ED_ITS ---
HPI HPI - General Adult General Chief complaint: Extremity Injury, Upper Stated complaint: PAIN IN CHEST DUE TO A FALL Time Seen by Provider: 02/02/24 09:06 Source: patient Mode of arrival: walk-in Limitations: no limitations History of Present Illness HPI narrative: The patient presenting to us after he had a fall 3 days ago on 29 January, according to him he had a fall when he hit left side of his face as well as the anterior chest wall, the patient has been having pain whenever he take a deep breath since then He does have history of Parkinson's and that was the reason for his fall Related Data Home Medications ?Medication ?Instructions ?Recorded ?Confirmed carbidopa 25 mg-levodopa 100 mg 1.5 tab PO .4 times per day 02/07/23 12/03/23 tablet glipizide 5 mg tablet 5 mg PO DAILY 02/07/23 12/03/23 meloxicam 7.5 mg tablet 7.5 mg PO DAILY 02/07/23 12/03/23 metoprolol succinate 50 mg 25 mg PO DAILY 02/07/23 12/03/23 tablet,extended release 24 hr ramipril 1.25 mg capsule 1.25 mg PO DAILY 02/07/23 12/03/23 rasagiline 1 mg tablet 1 mg PO DAILY 02/07/23 12/03/23 simvastatin 40 mg tablet 40 mg PO .QHS 02/07/23 12/03/23 Previous Rx's ?Medication ?Instructions ?Recorded cephalexin 500 mg capsule 500 mg PO Q8H 5 days #15 caps 02/07/23 methocarbamol 500 mg tablet 500 mg PO TID #12 tabs 12/03/23 oxycodone-acetaminophen 5 mg-325 1 tab PO Q8H PRN pain #9 tabs 02/02/24 mg tablet (Percocet) Allergies Allergy/AdvReac Type Severity Reaction Status Date / Time No Known Drug Allergies Allergy Verified 07/18/23 12:18 Opioid HPI Opioid Management Most Recent Opioid Data: Last Pain Scale 5 02/02/24 09:06 Last ED Pain Assessment 02/02/24 09:06 Last MAR Pain Assessment 02/02/24 09:32 Review of Systems ROS Status of ROS 10 or more systems reviewed and unremark able except as noted in history and below PFSH PFSH Social History Smoking status: Never smoker Exam Narrative Exam Narrative: Nurses notes and vital signs reviewed and patient is not hypoxic. General: Well-appearing and in no apparent distress. Skin: Warm, dry, no pallor noted. No rash. Head: Normocephalic, atraumatic. Neck: Supple, non-tender. Eye: Pupils are equal, round and EOMI. No scleral icterus. Ears, Nose, Mouth, and Throat: TM are clear, no nasal mucosal hypertrophy. Oral mucosa is moist, no posterior oropharynx erythema, uvula is mid-line Cardiovascular: Regular Rate and Rhythm without murmur, gallop or rub. Respiratory: No accessory muscle use or respiratory distress. Lungs are clear to auscultation, no wheezing, rales or rhonchi Chest Wall: no tenderness Back: No midline thoracic or lumbar vertebral tenderness. No CVA tenderness Musculoskeletal: normal ROM, no calf or popliteal tenderness, no lower extremity edema/swelling GI: Abdomen is soft, non-distended. Normal bowel sounds. No masses appreciated. No tenderness to palpation. No rebound, guarding, or rigidity noted. Neurological: A&O x4. No cranial nerve dysfunction observed. No truncal ataxia. Moves all extremities. Sensation intact. Psychiatric: Cooperative and interactive. Normal mood and affect. Constitutional Vital Signs, click to edit/add: Last Vital Signs Temp 97.8 F 02/02/24 13:28 Pulse 70 02/02/24 14:40 Resp 16 02/02/24 14:40 BP 145/81 H 02/02/24 14:40 Pulse Ox 96 02/02/24 14:40 O2 Del Method Room Air 02/02/24 14:40 Course Vital Signs Vital signs: Vital Signs Pulse Oximetry 96 02/02/24 08:48 Temperature 97.8 F 02/02/24 13:28 Pulse Rate 70 02/02/24 14:40 Respiratory Rate 16 02/02/24 14:40 Blood Pressure 145/81 H 02/02/24 14:40 Pulse Oximetry 96 02/02/24 14:40 Oxygen Delivery Method Room Air 02/02/24 14:40 Medical Decision Making MDM Narrative Medical decision making narrative: The patient CBC chemistry showed no acute significant pathology CT head as well as CT cervical spine showed no acute pathology CT of the patient's chest initially showed nondisplaced sternal fracture and CT angio confirmed the diagnosis Right now the patient was provided with Toradol in the ER, the patient was tolerating that very well and his pain got better He was discharged home with Percocet for pain and continue Mobic Metformin was stopped because the patient just had contrast and he will follow- up with his primary care within a week Patient also provided with incentive spirometer to avoid any complications The patient is to follow up with primary care physician in next 2-3 days or to return to the emergency department should any of the signs or symptoms worsen or new symptoms develop. The patient agrees with the following Diagnosis and Treatment plan and the patient will be discharged home. Lab Data Labs: Lab Results 02/02/24 Range/Units 09:02 WBC 5.3 (4.0-11.0) 10^3/uL RBC 5.11 (4.70-6.10) 10^6/uL Hgb 15.8 (14.0-18.0) g/dL Hct 45.7 (42.0-54.0) % MCV 89.4 (80.0-94.0) fL MCH 30.9 (25.9-34.0) pg MCHC 34.6 (29.9-35.2) g/dL RDW 13.0 (11.0-15.0) % Plt Count 109 L (150-450) 10^3/uL MPV 10.9 (9.5-13.5) fL Neut % (Auto) 68.4 (43.0-75.0) % Lymph % (Auto) 20.9 (20.5-60.0) % Porter % (Auto) 8.0 (1.7-12.0) % Eos % (Auto) 2.1 (0.9-7.0) % Baso % (Auto) 0.4 (0.2-2.0) % Neut # (Auto) 3.6 (1.4-6.5) 10^3/uL Lymph # (Auto) 1.1 L (1.2-3.8) 10^3/uL Porter # (Auto) 0.4 (0.3-0.8) 10^3/uL Eos # (Auto) 0.1 (0.0-0.7) 10^3/uL Baso # (Auto) 0.0 (0.0-0.1) 10^3/uL Abs Immat Gran (auto) 0.01 (0.00-0.03) 10^3/uL Imm/Tot Granulo (auto) 0.2 (0.0-0.5) % Sodium 138 (136-145) mmol/L Potassium 4.3 (3.5-5.1) mmol/L Chloride 102 (98-107) mmol/L Carbon Dioxide 29.7 (21.0-32.0) mmol/L Anion Gap 10.6 BUN 15.0 (7.0-18.0) mg/dL Creatinine 1.01 (0.70-1.30) mg/dL Est GFR ( Amer) >60 (>=60) Est GFR (Non-Af Amer) >60 (>=60) BUN/Creatinine Ratio 14.9 Glucose 225 H (74-106) mg/dL Calcium 8.8 (8.5-10.1) mg/dL Total Bilirubin 1.0 (0.2-1.0) mg/dL AST 29 (15-37) U/L ALT 13 L (16-63) U/L Alkaline Phosphatase 78 (46-116) U/L Troponin I High Sens 7.1 (4.0-76.1) pg/mL Total Protein 7.5 (6.4-8.2) g/dL Albumin 3.7 (3.4-5.0) g/dL Globulin 3.8 g/dL Albumin/Globulin Ratio 1.0 Discharge Plan Discharge Stand Alone Forms: Portal Instructions Chief Complaint: Extremity Injury, Upper Clinical Impression: Fall, Sternal fracture Patient Disposition: Home, Self-Care Time of Disposition Decision: 13:53 Prescriptions / Home Meds: New oxycodone-acetaminophen [Percocet] 5-325 mg tablet 1 tab PO Q8H PRN (Reason: pain) Qty: 9 0RF Discontinued metformin 500 mg tablet extended release 24 hr 500 mg PO BID hydrocodone-acetaminophen 5-325 mg tablet 1 tab PO Q6H PRN (Reason: pain) 3 Days Qty: 12 0RF Rx Instructions: DX: M25.552 No Action carbidopa-levodopa 25-100 mg tablet 1.5 tab PO .4 times per day glipizide 5 mg tablet 5 mg PO DAILY meloxicam 7.5 mg tablet 7.5 mg PO DAILY metoprolol succinate 50 mg tablet extended release 24 hr 25 mg PO DAILY ramipril 1.25 mg capsule 1.25 mg PO DAILY rasagiline 1 mg tablet 1 mg PO DAILY simvastatin 40 mg tablet 40 mg PO .QHS cephalexin 500 mg capsule 500 mg PO Q8H 5 Days Qty: 15 0RF methocarbamol 500 mg tablet 500 mg PO TID Qty: 12 0RF Print Language: French Instructions: How to Use an Incentive Spirometer (ED), Rib Fracture (ED) Referrals: Nathan Hartman MD [Primary Care Provider] - 1 week Discharge Date/Time: 02/02/24 14:42
== END 2024-02-02 14:42 | disposition home or self-care (01) ==
PROVIDERS: Emergency Provider Emergency Medicine; PCP Family Medicine
DX: S22.20XA Unspecified fracture of sternum, initial encounter for closed fracture (principal); G20.A1 Parkinson's disease without dyskinesia, without mention of fluctuations; W19.XXXA Unspecified fall, initial encounter
CPT/HCPCS: 36415; 70450; 70486; 71250; 71275; 80053; 84484; 85025; 93005; 94667; 99285; J1885; Q9967

== ENCOUNTER 2024-02-17 10:02 | Outpatient (OUT) | payer MEDICARE, SELFPAY ==
--- NOTE | 2024-02-17 10:08 | XR_ITS ---
[address] [address] Patient Name: TASHA NEWBERRY MRN: [id number] date: 1945 Sex: M Assigned Patient Location: [facility] Current Patient Location: Accession/Order Number: [id number] Exam Date: 02/17/2024 10:20 Report Date: 02/18/2024 06:30 At the request of: SHAIKH TALAT Procedure: XR chest 2V EXAMINATION: XR chest 2V HISTORY: Closed Fracture Of Body Of Sternum With Delayed Healing COMPARISON: CT chest 02/02/2024 FINDINGS: LUNGS: No significant pulmonary parenchymal abnormalities. VASCULATURE: No increased pulmonary vasculature. PLEURA: No pneumothorax, effusion, or pleural thickening. CARDIAC: No cardiomegaly or cardiac silhouette abnormality. MEDIASTINUM: No visible mass or adenopathy. BONES: No visible fracture or bone lesion. OTHER: Negative. XR/XR chest 2V IMPRESSION: 1. No acute cardiopulmonary process. 2. No appreciable fracture or suspicious offset of the sternum. Electronically authenticated by: AYAZ NICOLE Date: 02/18/2024 06:30
== END 2024-02-17 10:03 | disposition home or self-care (01) ==
LOC: RAD 10:04
PROVIDERS: PCP Family Medicine; Visit Provider Internal Medicine
DX: S22.22XG Fracture of body of sternum, subsequent encounter for fracture with delayed healing (principal)
CPT/HCPCS: 71046

== ENCOUNTER 2024-03-19 15:37 | Emergency (ER) | payer MEDICARE, SELFPAY ==
[2024-03-19 15:39] VITALS: BP 144/88; PULSE 84; TEMP 36.4; O2SAT 95; BMI 22.3
--- NOTE | 2024-03-19 15:52 | ED.GENADUL1 ---
HPI HPI - General Adult General Chief complaint: Fall Stated complaint: FALL Time Seen by Provider: 03/19/24 15:40 Source: patient Mode of arrival: ambulance Limitations: no limitations History of Present Illness HPI narrative: Patient is a 78-year-old male who presents to the emergency department by ambulance for injuries after a fall. Patient has a history of Parkinson's. His states that he was not ambulating with his walker and he lost his balance and fell. Patient states he hit his head and complains of pain in the head, neck and right hip. He is on no blood thinners. No medications given prior to arrival. Per , patient is at mental baseline. No dizziness or syncope. Related Data Home Medications ?Medication ?Instructions ?Recorded ?Confirmed carbidopa 25 mg-levodopa 100 mg 1.5 tab PO .4 times per day 02/07/23 12/03/23 tablet glipizide 5 mg tablet 5 mg PO DAILY 02/07/23 12/03/23 meloxicam 7.5 mg tablet 7.5 mg PO DAILY 02/07/23 12/03/23 metoprolol succinate 50 mg 25 mg PO DAILY 02/07/23 12/03/23 tablet,extended release 24 hr ramipril 1.25 mg capsule 1.25 mg PO DAILY 02/07/23 12/03/23 rasagiline 1 mg tablet 1 mg PO DAILY 02/07/23 12/03/23 simvastatin 40 mg tablet 40 mg PO .QHS 02/07/23 12/03/23 Previous Rx's ?Medication ?Instructions ?Recorded cephalexin 500 mg capsule 500 mg PO Q8H 5 days #15 caps 02/07/23 methocarbamol 500 mg tablet 500 mg PO TID #12 tabs 12/03/23 oxycodone-acetaminophen 5 mg-325 1 tab PO Q8H PRN pain #9 tabs 02/02/24 mg tablet (Percocet) Allergies Allergy/AdvReac Type Severity Reaction Status Date / Time No Known Drug Allergies Allergy Verified 07/18/23 12:18 Opioid HPI Opioid Management Most Recent Opioid Data: Last Pain Scale 8 03/19/24 16:08 Last MAR Pain Assessment 03/19/24 16:08 Review of Systems ROS Constitutional Denies: fever or chills Ears, nose, mouth, and throat Denies: throat pain or nasal congestion Respiratory Denies: shortness of breath Gastrointestinal Denies: nausea or vomiting Musculoskeletal Reports: neck pain and extremity pain; Denies: back pain Integumentary/Breast Denies: rash Hematologic/Lymphatic Denies: easy bruising or easy bleeding [facility] Social History Smoking status: Never smoker Exam Narrative Exam Narrative: Gen.: Awake, alert, in no distress Head: Normocephalic, atraumatic ENT: Moist mucous membranes, c-collar in place Respiratory: No respiratory distress, lungs clear bilaterally Cardio: Regular rate and rhythm Gastrointestinal: Abdomen is soft, nondistended and nontender to palpation Back: Patient logrolled, no tenderness of the T-spine or L-spine. No abrasion or laceration Extremities: Moves extremities equally, limited flexion at the right hip with no obvious deformity or shortening of the right lower extremity. Mild tenderness to palpation of the right hip joint, pelvis is stable. No bony tenderness of the knees or feet bilaterally Psych: Normal mood and affect Neuro: No focal neuro deficit Skin: Warm, dry, intact Constitutional Vital Signs, click to edit/add: Last Vital Signs Temp 97.5 F L 03/19/24 15:39 Pulse 84 03/19/24 15:39 Resp 16 03/19/24 15:39 BP 144/88 H 03/19/24 15:39 Pulse Ox 95 03/19/24 15:39 O2 Del Method Room Air 03/19/24 15:39 Course Vital Signs Vital signs: Vital Signs Temperature 97.5 F L 03/19/24 15:39 Pulse Rate 84 03/19/24 15:39 Respiratory Rate 16 03/19/24 15:39 Blood Pressure 144/88 H 03/19/24 15:39 Pulse Oximetry 95 03/19/24 15:39 Oxygen Delivery Method Room Air 03/19/24 15:39 Temperature 97.5 F L 03/19/24 15:39 Pulse Rate 84 03/19/24 15:39 Respiratory Rate 16 03/19/24 15:39 Blood Pressure 144/88 H 03/19/24 15:39 Pulse Oximetry 95 03/19/24 15:39 Oxygen Delivery Method Room Air 03/19/24 15:39 Medical Decision Making MDM Narrative Medical decision making narrative: Patient was kept flat in a c-collar until he was sent for CTs of the head, C-spine and CT of the pelvis, all of the studies are unremarkable. Laboratory studies reviewed and noted within normal limits as well. Patient was able to remove from the c-collar, for and ambulate with a walker with no difficulty. is comfortable taking him home, his pain is controlled at this time. Follow-up with PCP and return to the ER if symptoms change or worsen SHARED APC VISIT, PHYSICIAN ATTESTATION: [id number] I performed a substantive part of the MDM during the patient?s E/M visit. I personally evaluated and examined the patient. I personally made or approved the documented management plan and acknowledge its risk of complications. Medical Records Medical records reviewed: Yes I reviewed the patient's medical records Lab Data Lab results reviewed: Yes I reviewed the patient's lab results Labs: Lab Results 03/19/24 Range/Units 15:52 WBC 5.2 (4.0-11.0) 10^3/uL RBC 4.92 (4.70-6.10) 10^6/uL Hgb 15.3 (14.0-18.0) g/dL Hct 43.8 (42.0-54.0) % MCV 89.0 (80.0-94.0) fL MCH 31.1 (25.9-34.0) pg MCHC 34.9 (29.9-35.2) g/dL RDW 12.8 (11.0-15.0) % Plt Count 120 L (150-450) 10^3/uL MPV 10.9 (9.5-13.5) fL Neut % (Auto) 57.9 (43.0-75.0) % Lymph % (Auto) 30.0 (20.5-60.0) % [place] % (Auto) 9.2 (1.7-12.0) % Eos % (Auto) 2.3 (0.9-7.0) % Baso % (Auto) 0.4 (0.2-2.0) % Neut # (Auto) 3.0 (1.4-6.5) 10^3/uL Lymph # (Auto) 1.6 (1.2-3.8) 10^3/uL [place] # (Auto) 0.5 (0.3-0.8) 10^3/uL Eos # (Auto) 0.1 (0.0-0.7) 10^3/uL Baso # (Auto) 0.0 (0.0-0.1) 10^3/uL Abs Immat Gran (auto) 0.01 (0.00-0.03) 10^3/uL Imm/Tot Granulo (auto) 0.2 (0.0-0.5) % PT 11.3 (9.0-11.6) sec INR 1.07 Sodium 136 (136-145) mmol/L Potassium 4.2 (3.5-5.1) mmol/L Chloride 100 (98-107) mmol/L Carbon Dioxide 28.4 (21.0-32.0) mmol/L Anion Gap 11.8 BUN 17.0 (7.0-18.0) mg/dL Creatinine 1.08 (0.70-1.30) mg/dL Est GFR ( Amer) >60 (>=60) Est GFR (Non-Af Amer) >60 (>=60) BUN/Creatinine Ratio 15.7 Glucose 275 H (74-106) mg/dL Calcium 9.1 (8.5-10.1) mg/dL Total Bilirubin 0.7 (0.2-1.0) mg/dL AST 30 (15-37) U/L ALT 21 (16-63) U/L Alkaline Phosphatase 82 (46-116) U/L Troponin I High Sens <4.0 L (4.0-76.1) pg/mL Total Protein 7.0 (6.4-8.2) g/dL Albumin 3.8 (3.4-5.0) g/dL Globulin 3.2 g/dL Albumin/Globulin Ratio 1.[address] scan - head: Attestation: I have reviewed the pertinent imaging results. Radiologist's impression: ITS Impressions Cervical Spine CT 03/19/24 16:52 IMPRESSION: 1. No acute fracture or subluxation. 2. Diffuse disc degenerative changes. Electronically authenticated by: CASEY NAVARRO Date: 03/19/2024 17:[address] 03/19/24 16:52 IMPRESSION: There is no evidence of an intracranial hemorrhage, mass lesion or apparent acute infarct. Slight patchy diminished attenuation in the deep white matter suggests early small vessel ischemic changes. The paranasal sinuses are clear. There is no apparent acute skull fracture. The overall appearance unchanged. Electronically authenticated by: RUBEN KHANNA Date: 03/19/2024 17:[address] 03/19/24 16:52 IMPRESSION: 1. Possible subcutaneous hematoma lateral to the right greater trochanter. 2. No fractures or dislocations. 3. Degenerative disc disease of the lower lumbar spine. Electronically authenticated by: BASIM MORENO Date: 03/19/2024 17:16 Discharge Plan Discharge Stand Alone Forms: Work/School Release, Portal Instructions Chief Complaint: Fall Clinical Impression: Fall, Closed head injury, Contusion of right hip Patient Disposition: Home, Self-Care Time of Disposition Decision: 17:33 Condition: Good Prescriptions / Home Meds: No Action oxycodone-acetaminophen [Percocet] 5-325 mg tablet 1 tab PO Q8H PRN (Reason: pain) Qty: 9 0RF carbidopa-levodopa 25-100 mg tablet 1.5 tab PO .4 times per day glipizide 5 mg tablet 5 mg PO DAILY meloxicam 7.5 mg tablet 7.5 mg PO DAILY metoprolol succinate 50 mg tablet extended release 24 hr 25 mg PO DAILY ramipril 1.25 mg capsule 1.25 mg PO DAILY rasagiline 1 mg tablet 1 mg PO DAILY simvastatin 40 mg tablet 40 mg PO .QHS cephalexin 500 mg capsule 500 mg PO Q8H 5 Days Qty: 15 0RF methocarbamol 500 mg tablet 500 mg PO TID Qty: 12 0RF Print Language: Georgian Instructions: Head Injury (ED), Hip Contusion (ED) Referrals: Nathan Hartman MD [Primary Care Provider] - 1 week
--- OUTSIDE RECORDS SUMMARY | 2024-03-19 15:54 | XMS_ITS | CCD ---
Author Organization [facility] Inform ion [facility] Care Team Providers Care Material Carrier Name Role Phone Nathan Bolton Primary Care Provider [phone] DONALD ALBERTS Referring Unavailable NATHAN BOLTON Primary Care Unavailable Nathan Bolton Primary Care Provider [phone] CASANDRA ., DR NIKHIL Ross Admitting Unavailable GUAJARDO ., DR NIKHIL Ross Attending Unavailable LE .DANIEL Consulting Unavailable NADROBERTA, DR NATHAN Alonso Primary [...] GARZON Consulting Unavailable SANIYA GARZON Attending Unavailable HOANG, DR NATHAN Alonso Primary Care Unavailable SANIYA [...] NADEREGideon, DR NATHAN Alonso Primary Care Unavailable NADERER, DR NATHAN Alonso Primary Care Unavailable NADEREGideon, DR NATHAN Alonso Consulting Unavailable NADEREGideon, DR NATHAN Alonso Attending Unavailable NADEREGideon, DR NATHAN Alonso Admitting Unavailable NADERER, DR NATHAN Alonso Consulting Unavailable NADERER, DR NATHAN Alonso Attending Unavailable NADERER, DR NATHAN Alonso Admitting Unavailable DR NATHAN BOLTON Primary Care Unavailable [facility], DR NOBLE Attending Unavailable ALISE, DR NOBLE [...] Unavailable Nathan Bolton MD Primary Care Provider Nathan Bolton Primary Care Provider AYAZ SANTO Attending Unavailable NATHAN BOLTON Attending Unavailable NATHAN BOLTON Attending Unavailable AYAZ SANTO Attending Unavailable SHAIKH GILLILAND Attending Unavailable SHAIKH GILLILAND Attending Unavailable HOANG, NATHAN Attending Unavailable Medications Current Medications Medication Drug [...] mg per tablet Indications: PD (Parkinson's disease) ([facility]) Take 2 tablets by mouth four times daily. [Every 3-hours] 540 tablet 3 12/26/2023 12/25/2024 Active Start: 12-05-2022 End: 05-23-2024 take 1.5 tablets by mouth four times daily carbidopa-levodopa (SINEMET) 25-100 mg per tablet Indications: PD (Parkinson's disease) ([facility]) Take 1.5 tablets by mouth four times daily. 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; Translations: [OTH ARM MAKER CURRENT DRUG THERAPY] Onset: 12-15-2022 Episodic Other aftercare (1 source) 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; Translations: [HALF-WAY CURRENT USE OF ASPIRIN] Onset: 12-15-2022 Episodic Other aftercare (1 source) artistic associate (current) use of oral hypoglycemic drugs; Translations: [HALF-WAY USE ORAL HYPOGLYCEMIC DX] Onset: 12-15-2022 Episodic [...] Test Name Value Interpretation Reference Range Facility [facility] 06-14-2023 CNOV Office Visit (NRESFV) HERRERA MARTINEZ ([id number]) 1945 M Date Time Provider Department 06/14/23 3:00 PM DONALD ALBERTS [facility] During your visit today, we recorded the following information about you: Pulse Blood pressure Weight Height 72/minute 118/61 76.1 kg 1.778 m Donald Alberts, DO 06/14/2023 3:34 PM Signed [facility] - FOLLOW UP EVALUATION Nathan Bolton MD [address] [place] [address] Herrera Martinez is a 77 year old male with a history of PD. He is seen with his . Interval History Since Last Visit: The patient had a swallowing test in late november 2022 - no issues other than more focus on swallowing was made to the patient. 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 1 fall in November o/w doing [...] 72 Ht (more content not included)... Normal [facility] CNOVon 12-05-2022 CNOV Office Visit (NRESFV) HERRERA MARTINEZ ([id number]) 1945 M Date Time Provider Department 12/05/22 1:30 PM DONALD ALBERTS NRESFV During your visit today, we recorded the following information about you: Pulse Blood pressure Weight 61/minute 127/72 74.8 kg Donald Alberts DO 12/05/2022 2:18 PM Signed [facility] - FOLLOW UP EVALUATION Donald Alberts [address] [facility] [id number] Nathan Bolton MD [address] [facility] [id number] Herrera Martinez is a 77 year old male with a history of parkinsonism. He is seen with family. Interval History Since Last Visit: He is falling. There is more hjaqlkyu-zg-awxv (FOG) - this is the cause of the falls. He has fallen while he is carrying things. Multitasking is a big issue. There were two falls in the post op period following cataract surgery. FOG seems to be worse in the PM. There is drooling at night. The mucous in the back of the throat is the issue. No STATISTICAL CLERK for 6 years. The Sinemet is not [...] no evid (more content not included)... Normal [facility] CBC AUTO DIFFon 11-26-2022 BASO # 0.0 103/ul Normal 0.0-0.1 [facility] Comment on above: Performed By: #### C BC #### [facility] [address] [place], [place] [address] Dr. Joaquín Rodriguez Basophils/100 WBC (Bld) 0.4 % Normal 0.2-2.0 [facility] Comment on above: Performed By: #### C BC #### [facility] [address] [place], [place] [address] Dr. Joaquín Rodriguez EO # 0.1 103/ul Normal 0.0-0.7 [facility] Comment on above: Performed By: #### C BC #### [facility] [address] [place] [address] Dr. Joaquín Rodriguez Eosinophils/100 WBC (Bld) 2.6 % Normal 0.9-7.0 [facility] Comment on above: Performed By: #### C BC #### [facility] [address] [place] [address] Dr. Joaquín Rodriguez Erythrocyte distribution width (RBC) [Ratio] 13.2 % Normal 11.0-15.0 [facility] Comment on above: Performed By: #### C BC #### [facility] [address] [place] [address] Dr. Joaquín Rodriguez Hematocrit (Bld) [Volume fraction] 47.0 % Normal 42.0-54.0 [facility] Comment on above: Performed By: #### C BC #### [facility] [address] [place] [address] Dr. Joaquín Rodriguez Hemoglobin (Bld) [Mass/Vol] 15.9 g/dL Normal 14.0-18.0 [facility] Comment on above: Performed By: #### C BC #### [facility] [address] [place] [address] Dr. Joaquín Rodriguez IG # 0.01 10e3/ul Normal 0.00-0.03 [facility] Comment on above: Performed By: #### C BC #### [facility] [address] [place] [address] Dr. Joaquín Rodriguez IG % 0.2 % Normal 0.0-0.5 [facility] Comment on above: Performed By: #### C BC #### [facility] [address] [place] [address] Dr. Joaquín Rodriguez LYMPH # 1.5 103/ul Normal 1.2-3.8 [facility] Comment on above: Performed By: #### C BC #### [facility] [address] [place] [address] Dr. Joaquín Rodriguez Lymphocytes/100 WBC (Bld) 30.0 % Normal 20.5-60.0 [facility] Comment on above: Performed By: #### C BC #### [facility] [address] [place] [address] Dr. Joaquín Rodriguez MANUAL DIFF REQ NO Normal [facility] Comment on above: Performed By: #### C BC #### [facility] [address] [place] [address] Dr. Joaquín Rodriguez MCH (RBC) [Entitic mass] 30.8 pg Normal 25.9-34.0 [facility] Comment on above: Performed By: #### C BC #### [facility] [address] [place] [address] Dr. Joaquín Rodriguez MCHC (RBC) [Mass/Vol] 33.8 g/dL Normal 29.9-35.2 [facility] Comment on above: Performed By: #### C BC #### [facility] [address] [place] [address] Dr. Joaquín Rodriguez MCV (RBC) [Entitic vol] 90.9 fL Normal 80.0-94.0 [facility] Comment on above: Performed By: #### C BC #### [facility] [address] [place] [address] Dr. Joaquín Rodriguez MONO # 0.4 103/ul Normal 0.3-0.8 [facility] Comment on above: Performed By: #### C BC #### [facility] [address] [place] [address] Dr. Joaquín Rodriguez Monocytes/100 WBC (Bld) 7.5 % Normal 1.7-12.0 [facility] Comment on above: Performed By: #### C BC #### [facility] [address] [place] [address] Dr. Joaquín Rodriguez NEUT # 3.0 103/ul Normal 1.4-6.5 [facility] Comment on above: Performed By: #### C BC #### [facility] [address] [place] [address] Dr. Joaquín Rodriguez Neutrophils/100 WBC (Bld) 59.3 % Normal 43.0-75.0 [facility] Comment on above: Performed By: #### C BC #### [facility] [address] [place] [address] [address] Joaquín Rodriguez Platelet mean volume (Bld) [Entitic vol] 11.2 fL Normal 9.5-13.5 [facility] Comment on above: Performed By: #### C BC #### [facility] [address] [place] [address] [address] Joaquín Rodriguez PLT 128 103/ul Critically low 150-450 [facility] Comment on above: Performed By: #### C BC #### [facility] [address] [place] [address] [address] Joaquín Rodriguez RBC 5.17 106/ul Normal 4.70-6.10 [facility] Comment on above: Performed By: #### C BC #### [facility] [address] [place] [address] Dr. Joaquín Rodriguez WBC 5.1 103/ul Normal 4.0-11.0 [facility] Comment on above: Performed By: #### C BC #### [facility] [address] [place] [address] [address] Joaquín Rodriguez GLYCOHEMOGLOBIN A1Con 2022 ADA RECOMMENDATION SEE BELOW Normal [facility] Comment on above: Result Comment: ADA RECOMMENDED LIMIT 4.0 - 6.0 ADA THERAPEUTIC TARGET < 7.0 ACTION SUGGESTED > 7.0 Performed By: #### A 1C #### [facility] [address] [place] [address] Dr. Joaquín Rodriguez Glucose [Mass/Vol] 235 mg/dL Normal [facility] Comment on above: Performed By: #### A 1C #### [facility] [address] [place] [address] Dr. Joaquín Rodriguez HbA1c (Bld) [Mass fraction] 9.8 % Critically high 4.5-6.2 [facility] Comment on above: Performed By: #### A 1C #### [facility] [address] [place] [address] Dr. Joaquín Rodriguez LIPID PROFILEon 11-26-2022 CHOL-HDL RATIO NORM SEE BELOW Normal [facility] Comment on above: Result Comment: 3.3 - 4.4 LOW RISK 4.4 - 7.1 AVERAGE RISK 7.1 - 11.0 MODERATE RISK >11.0 HIGH RISK Performed By: #### L IVER, LIPID, BMP ####[facility] [address] [place] [id number]. Nailalan Rodriguez Cholesterol [Mass/Vol] 145 mg/dL Normal <=200 [facility] Comment on above: Performed By: #### L IVER, LIPID, BMP ####[facility] [address] [place] [id number]. Nailalan Rodriguze Cholesterol in HDL [Mass/Vol] 39 mg/dL Critically low 40-60 [facility] Comment on above: Performed By: #### L IVTEN, LIPID, BMP ####[facility] [address] [place] [address]Dr. Nailalan Rodriguez Cholesterol in LDL [Mass/Vol] 70.8 mg/dL Normal [facility] Comment on above: Performed By: #### L IVER, LIPID, BMP ####[facility] [address] [place] [address]Dr. Nailalan Rodriguez Cholesterol.total/Rukhsana sterol in HDL [Mass ratio] 3.7 {ratio} Normal [facility] Comment on above: Performed By: #### L IVER, LIPID, BMP ####[facility] [address] [place] [id number]. Yilan Rodriguez HDL NORMAL > or = 60 mg/dl - LOW CARDIOVASCULAR RISK <40 mg/dl - HIGH CARDIOVASCULAR RISK Normal [facility] Comment on above: Performed By: #### L IVER, LIPID, BMP ####[facility] [address] [place] [id number]. Nailalan Rodriguez LDL CALC NORMAL SEE BELOW Normal [facility] Comment on above: Result Comment: <100 mg/dl OPTIMAL 100 - 129 mg/dl NEAR OR ABOVE OPTIMAL 130 - 159 mg/dl BORDERLINE HIGH 160 - 189 mg/dl HIGH >190 mg/dl VERY HIGH Performed By: #### L IVER, LIPID, BMP ####[facility] [address] [place] [address]Dr. Nailalan Rodriguez Triglyceride [Mass/Vol] 176 mg/dL Critically high <=150 [facility] Comment on above: Performed By: #### L ZENY LIPID, BMP ####[facility] [address] [place] [address]Dr. Joaquín Rodriguez VLDL CALC 35.2 mg/dL Normal [facility] Comment on above: Performed By: #### L IVTEN LIPID, BMP ####[facility] [address] [place] [address]Dr. Joaquín Rodriguez LIVER PROFILEon 11-26-2022 Albumin [Mass/Vol] 3.9 g/dL Normal 3.4-5.0 [facility] Comment on above: Performed By: #### L ZENY LIPID, BMP ####[facility] [address] [place], [place] [address]Dr. Joaquín Rodriguez Albumin/Globulin [Mass ratio] 1.0 {ratio} Normal [facility] Comment on above: Performed By: #### Kayla IVTEN LIPID, BMP ####[facility] [address] [place], [place] [address]Dr. Joaquín Rodriguez ALP [Catalytic activity/Vol] 91 U/L Normal 46-116 [facility] Comment on above: Performed By: #### L ZENY LIPID, BMP ####[facility] [address] [place], [place] [address]Dr. Joaquín Rodriguez ALT [Catalytic activity/Vol] 15 U/L Critically low 16-63 [facility] Comment on above: Performed By: #### L IVTEN LIPID, BMP ####[facility] [address] [place] [address]Dr. Joaquín Rodriguez AST [Catalytic activity/Vol] 29 U/L Normal 15-37 [facility] Comment on above: Performed By: #### L IVTEN LIPID, BMP ####[facility] [address] [place] [address]Dr. Joaquín Rodriguez BILI, CONJUGATED 0.2 mg/dL Normal 0.0-0.2 [facility] Comment on above: Performed By: #### L IVTEN LIPID, BMP ####[facility] [address] [place] [id number]. Joaquín Rodriguez Bilirubin [Mass/Vol] 0.7 mg/dL Normal 0.2-1.0 [facility] Comment on above: Performed By: #### L IVER, LIPID, BMP ####[facility] [address] [place] [address]Dr. Joaquín Rodriguez Globulin (S) [Mass/Vol] 3.8 g/dL Normal [facility] Comment on above: Performed By: #### L IVER, LIPID, BMP ####[facility] [address] [place] [address]Dr. Joaquín Rodriguez Protein [Mass/Vol] 7.7 g/dL Normal 6.4-8.2 [facility] Comment on above: Performed By: #### L IVER, LIPID, BMP ####[facility] [address] [place] [address]Dr. Joaquín Rodriguez MICROALBUMIN, RAND URon 05-0 mALB 3.5 mg/L Normal <=30.0 [facility] Comment on above: Performed By: #### M ALBR #### [facility] [address] [place] [address] [address] Joaquín Rodriguez PROF CHEM 8 (BAS METB)on Anion gap [Moles/Vol] 10.8 mmol/L Normal [facility] Comment on above: Performed By: #### L IVER, LIPID, BMP ####[facility] [address] [place] [address]Dr. Joaquín Rodriguez Calcium [Mass/Vol] 9.1 mg/dL Normal 8.5-10.1 [facility] Comment on above: Performed By: #### L IVER, LIPID, BMP ####[facility] [address] [place] [address]Dr. Joaquín Rodriguez Chloride [Moles/Vol] 103 mmol/L Normal 98-107 [facility] Comment on above: Performed By: #### L IVER, LIPID, BMP ####[facility] [address] [place] [address]Dr. Joaquín Rodriguez CO2 [Moles/Vol] 29.7 mmol/L Normal 21.0-32.0 [facility] Comment on above: Performed By: #### L IVTEN LIPID, BMP ####[facility] [address] [place] [id number]. Jaoquín Rodriguez Creatinine [Mass/Vol] 0.97 mg/dL Normal 0.70-1.30 [facility] Comment on above: Performed By: #### L IVER, LIPID, BMP ####[facility] [address] [place] [address]Dr. Joaquín Rodriguez EGFR-AF GIBRALTARIAN >60 Normal >=60 [facility] Comment on above: Performed By: #### L IVER LIPID, BMP ####[facility] [address] [place] [address]Dr. Joaquín Rodriguez EGFR-NON AF GIBRALTARIAN >60 Normal >=60 [facility] Comment on above: Performed By: #### L IVER, LIPID, BMP ####[facility] [address] [place] [address]Dr. Joaquín Rodriguez Glucose [Mass/Vol] 261 mg/dL Critically high 74-106 [facility] Comment on above: Performed By: #### L IVTEN, LIPID, BMP ####[facility] [address] [place] [address]Dr. Joaquín Rodriguez Potassium [Moles/Vol] 4.5 mmol/L Normal 3.5-5.1 [facility] Comment on above: Performed By: #### L IVER, LIPID, BMP ####[facility] [address] [place] [address]Dr. Joaquín Rodriguez Sodium [Moles/Vol] 139 mmol/L Normal 136-145 [facility] Comment on above: Performed By: #### L IVER, LIPID, BMP ####[facility] [address] [place] [address]Dr. Joaquín Rodriguez Urea nitrogen [Mass/Vol] 16.0 mg/dL Normal 7.0-18.0 [facility] Comment on above: Performed By: #### L CANDIDOER, LIPID, BMP ####[facility] [address] [place], [place] [address]EcKlaudia Joaquín Rodriguez Urea nitrogen/Creatinine [Mass ratio] 16.5 mg/mg Normal [facility] Comment on above: Performed By: #### L IVER, LIPID, BMP ####[facility] [address] [place], [place] [address]NqKlaudia Joaquín Rodriguez Holly 06-22-2022 CNPN Telephone (NREUS2) HERRERA MARTINEZ ([id number]) 1945 M Date Time Provider Department 06/22/22 [...] steroid injection [Z92.241] 10/07/2019 PD (Parkinson's disease) ([facility]) [G20] 10/07/2019 Encounter Status:Closed by DELL DWYER on 06/22/22 Normal [facility] MRI BRAIN WO IVCONon 022 MRI BRAIN [...] infarction, intracranial hemorrhage or intracranial mass lesion. 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 Joaquín Rodriguez Covid-19 PCR (CVDTBH)on 04-29 SARS-CoV-2 (COVID-19) RNA JAS+probe Ql (Unsp spec) Not detected Normal NOT DETECTED [facility] Comment on above: Result Comment: This test is not yet approved or cleared by the [place] FDA. When there are no FDA-approved or cleared tests available, and other criteria are met, FDA can make tests available under an emergency access mechanism called an Emergency Use Authorization (EUA). The EUA for this test is supported by the [place] of Health and Human Service's (HHS's) declaration [...] consistent with SARS-CoV-2. Performed By: #### C [facility] #### [facility] [address] [place] [address] [address] Joaquín Rodriguez GLYCOHEMOGLOBIN A1Con 2021 ADA RECOMMENDATION SEE BELOW Normal [facility] Comment on above: Result Comment: ADA RECOMMENDED LIMIT 4.0 - 6.0 ADA THERAPEUTIC TARGET < 7.0 ACTION SUGGESTED > 7.0 Performed By: #### A 1C #### [facility] [address] [place] [address] Dr. Joaquín Rodriguez Glucose [Mass/Vol] 212 mg/dL Normal [facility] Comment on above: Performed By: #### A 1C #### [facility] [address] [address] [address] Joaquín Rodriguez HbA1c (Bld) [Mass fraction] 9.0 % Critically high 4.5-6.2 [facility] Comment on above: Performed By: #### A 1C #### [facility] [address] [place] [address] Dr. Joaquín Rodriguez Auth for Release of Medical Recordson 11-21-2020 Auth for Release of Medical Records [id number] #1.00CD:[address] [facility] Dermatopathologyon 0 Dermatopathology [facility] Dermatopathology Laboratory [address] [place] [id number] DERMATOPATHOLOGY REPORT Name:HERRERA MARTINEZ [facility] Rec #. [id number] Location: [facility] Date of Procedure: 03/22/2020 Race: Date Received: 03/23/2020 /Sex: 1945 (Age: 74) / M Date Reported: 03/25/2020 Other: Submitting Physician:COYD STAHL MD, Attending/Copy To/Referring:: THIEN MEDINA,DO FINAL [...] Electronically Signed Out By NADER GALO MD/[facility] By the signature on this report, the individual or group listed as making the Final Interpretation/Diagn osis certifies that they have reviewed this case. Clinical History: Malignant melanoma. Excision. ([place] office) Specimens Submitted As: A: SKIN, RIGHT SUPERIOR LATERAL UPPER BACK Gross Description: Received in formalin is one lozano-brown piece of skin measuring 56 x 21 x 6 mm. The specimen is inked and embedded in toto in four blocks. The tips are in Block 1. mlz/03/23/2020 Normal [facility] Comment on above: Performed By: #### D #### Dermatopathology Dermatopathologyon 0 Dermatopathology Pathologist: NADER GALO MD Date of Procedure: 02/10/2020 Date Received: 02/10/2020 Submitting Physician: SAÚL JHAVERI MD Location: [facility] Copy To/Referring/Attendi ng: HENRIK WHALEN DO FINAL DIAGNOSIS 4 SLIDES[facility], #[id number] (BX: 01/06/2020) SKIN, RIGHT SUPERIOR LATERAL UPPER [...] melanocytes. The melanocytes stain with antibodies against Raymond-1 and SOX-10. The deep margin focally transects the atypical melanocytes. Electronically Signed Out by NADER GALO M.D. CANCER SUMMARY REPORT A. 4 SLIDES[facility], #[id number] (BX: 01/06/2020): Procedure: Biopsy, shave Specimen Laterality: [...] As: A: 4 SLIDES[facility], #[id number] (BX: 01/06/2020) Gross Description: Received for consultation from [facility] are four slides labeled [id number] (BX: 01/06/2020) along with the corresponding pathology report. Slide/Block Description 4 SLIDES, [id number]. Keep Slides: N Slides Returned: N Personal Consult: N Normal [facility] Comment on above: Performed By: #### D #### Dermatopathology Vital Signs Date Time Vital Sign Value Performing Clinician [place] 12-26-2023 13:04-0400 Diastolic blood pressure 70 mm[Hg] Donald Alberts DO Work Phone: [facility] 12-26-2023 13:04-0400 Heart rate 74 /min Donald Alberts DO Work Phone: [facility] 12-26-2023 13:04-0400 Systolic blood pressure 109 mm[Hg] Donald Alberts DO Work Phone: [facility] 09-10-2023 11:47-0500 Body height 180.3 cm Nathan Bolton MD Work Phone: [facility] 09-10-2023 11:47-0500 Body mass index (BMI) [Ratio] 23.01 kg/m2 Nathan Bolton MD Work Phone: [facility] 09-10-2023 11:47-0500 Body temperature 97.5 [degF] Nathan Bolton MD Work Phone: [facility] 09-10-2023 11:47-0500 Body weight 74.84 kg Nathan Bolton MD Work Phone: [facility] 09-10-2023 11:47-0500 Diastolic blood pressure 70 mm[Hg] Nathan Bolton MD Work Phone: [facility] 09-10-2023 11:47-0500 Heart rate 89 /min Nathan Bolton MD Work Phone: [facility] 09-10-2023 11:47-0500 SaO2% (BldA) [Mass fraction] 99 % Nathan Bolton MD Work Phone: [facility] 09-10-2023 11:47-0500 Systolic blood pressure 130 mm[Hg] Nathan Bolton MD Work Phone: [facility] 12-05-2022 13:27-0400 Body weight 74.84 kg Donald Gostkowski DO Work Phone: [facility] 12-05-2022 13:27-0400 Diastolic blood pressure 72 mm[Hg] Donald Gostkowski DO Work Phone: [facility] 12-05-2022 13:27-0400 Heart rate 61 /min Donald Gostkowski DO Work Phone: [facility] 12-05-2022 13:27-0400 SaO2% (BldA) [Mass fraction] 99 % Donald Gostkowski DO Work Phone: [facility] 12-05-2022 13:27-0400 Systolic blood pressure 127 mm[Hg] Donald Gostkowski DO Work Phone: [facility] 06-06-2022 16:21-0500 Body height 180.3 cm Donald Gostkowski DO Work Phone: [facility] 06-06-2022 16:21-0500 Body weight 74.39 kg Donald Gostkowski DO Work Phone: [facility] 06-06-2022 16:21-0500 Diastolic blood pressure 75 mm[Hg] Donald Gostkowski DO Work Phone: [facility] 06-06-2022 16:21-0500 Heart rate 69 /min Donald Gostkowski DO Work Phone: [facility] 06-06-2022 16:21-0500 SaO2% (BldA) [Mass fraction] 100 % Donald Alberts DO Work Phone: [facility] 06-06-2022 16:21-0500 Systolic blood pressure 135 mm[Hg] Donald Alberts DO Work Phone: [facility] Encounters Encounter Date Encounter Type Care Provider Facility Start: 03-05-2024 End: 03-05-2024 ambulatory NATHAN BOLTON Not Available Start: 02-04-2024 End: 02-04-2024 ambulatory SHAIKH TALAT Not Available Start: 12-26-2023 End: 12-26-2023 Office outpatient visit 15 minutes Donald Alberts DO Work Phone: Neurology Comment on above: Parkinson's disease without dyskinesia or fluctuating manifestations (HCC) (Primary Dx); Sialorrhea; PD (Parkinson's disease) (HCC) Start: 12-11-2023 End: 12-11-2023 ambulatory SHAIKH TALAT Not Available Start: 12-05-2023 End: 12-05-2023 ambulatory AYAZ Gavin SANTO Not Available Start: 12-02-2023 End: 12-02-2023 ambulatory NATHAN BOLTON Not Available Start: 11-03-2023 Refill Donald T Sonya xavier DO Work Phone: Neurology Comment on above: Refill Request Start: 09-10-2023 Bamboo flowsheet Nathan Bolton MD Work Phone: [facility] Start: 09-10-2023 Bamboo flowsheet Nathan Bolton MD Work Phone: [facility] Start: 09-10-2023 End: 09-10-2023 Office outpatient visit 15 minutes Nathan Bolton MD Work Phone: [facility] Comment on above: Epigastric abdominal pain (Primary Dx) Start: 09-10-2023 End: 09-10-2023 ambulatory NATHAN BOLTON Not Available Start: 08-22-2023 End: 08-22-2023 ambulatory AYAZ Alonso RAE Not Available Start: 06-14-2023 End: 06-14-2023 ambulatory DONALD ALBERTS Facility:[facility] Start: 03-16-2023 ambulatory Donald xavier DO Work Phone: Neurology Comment on above: Botox for excessive saliva for Herrera Martinez Start: 02-19-2023 Refill Donald Mishraanastaciosravanthi siddiquii DO Work Phone: Neurology Comment on above: Refill Request Start: 12-26-2022 End: 12-26-[address] DOCTOR NICOLE Facility:[facility] Start: 12-13-2022 End: 12-13-2022 ambulatory JOANNE TALAVERA . Facility:[facility] Start: 12-05-2022 End: 12-05-2022 ambulatory DONALD ALBERTS Facility:[facility] Start: 12-05-2022 End: 12-05-2022 Patient encounter procedure Donald Alberts DO Work Phone: Neurology Comment on above: PD (Parkinson's dise ase) ([facility]) (Primary Dx); Sialorrhea; Hypophonia Start: 11-26-2022 End: 11-27-[address] NATHAN BOLTON Facility:[facility] Start: 10-21-2022 ambulatory Donald Hassan arturrene DO Work Phone: Neurology Comment on above: Herrera Chasehart Rosario ons patient contraindicated medicines Start: 09-27-2022 End: 09-27-2022 ambulatory SANIYA GARZON Facility:[facility] Start: 09-10-2022 Refill Donald Anastacio Mishrawest morenita DO Work Phone: [facility] Comment on above: Refill Request Start: 08-30-2022 End: 08-30-2022 ambulatory SANIYA GARZON Facility:[facility] Start: 06-27-2022 End: 06-28-[address] NIKHIL GUAJARDO . Facility:[facility] Start: 06-22-2022 Telephone encounter Donald gomez DO Work Phone: [facility] Comment on above: Results (MRI NL) Start: 06-20-2022 End: 06-20-2022 ambulatory DONALD ALBERTS Facility:[facility] Start: 06-06-2022 End: 06-06-2022 Patient encounter procedure Donald Alberts DO Work Phone: Neurology Comment on above: PD (Parkinson's dise ase) ([facility]) (Primary Dx); Dysarthria Start: 05-23-2022 Encounter for preprocedural laboratory examination DR NIKHIL GUAJARDO . [facility] Start: 05-22-2022 End: 05-22-2022 ambulatory [...] Author Start: 06-20-2024 DIABETES SCREEN DIABETES SCREEN [facility] Start: 06-20-2024 [facility] Start: 06-18-2024 End: 06-18-2024 Patient encounter procedure 06/18/2024 9:30 AM EST Office Visit Neurology [address] [place], [place] [id number] Donald Alberts DO [address] [place] [address] Return in about 6 months (around 06/27/2024). Neurology Comment on above: Return in about 6 mo nths (around 06/27/2024). Start: 12-05-2023 End: 12-05-2023 Patient encounter procedure 12/05/2023 2:45 PM EDT Procedure Visit [facility] [address] [place] [id number] Ayaz Santo, DPM [address] [place] [place], [place] [id number] [facility] Start: 12-02-2023 End: 12-02-2023 Patient encounter procedure 12/02/2023 10:45 AM EDT Office Visit [facility] [address] [place] [phone] Nathan Bolton MD [address] [place] [phone] [facility] Start: 09-24-2023 Hemoglobin A1c measurement Maritza betes: Hemoglobin A1C [facility] Start: 09-10-2023 End: 09-10-2024 RF Upper gastrointestinal tract and Small bowel Single view W contrast PO FL upper GI double contrast w KUB Imaging Routine Epigastric abdominal pain Expected: 09/10/2023, Expires: 09/10/2024 [facility] Comment on above: Expected: 09/10/2023 , Expires: 09/10/2024 Start: 09-10-2023 End: 09-10-2024 US Gallbladder US gallbladder Imaging Routine Epigastric abdominal pain Expected: 09/10/2023, Expires: 09/10/2024 [facility] Work Phone: Comment on above: Expected: 09/10/2023 , Expires: 09/10/2024 Start: 09-10-2023 End: 09-10-2023 Patient encounter procedure 09/10/2023 11:45 AM EST [facility] [address] [place] [address] Nathan Bolton MD [address] [place] [phone] Arrived [facility] Comment on above: Arrived Start: 07-29-2023 Advance Directive Discussion Advance Directive Discussion [facility] Start: 07-29-2023 Behavioral Health Screening Behavioral Health Screening [facility] Start: 03-29-2023 Covid-19 Vaccine ( season) Covid-19 Vaccine () [facility] Start: 03-29-2023 Influenza vaccination INFLUENZA (#1) [facility] Start: 08-26-2022 COVID-19 VACCINE (6 - Pfizer series) COVID-19 VACCINE (6 - Pfizer series) [facility] Start: 07-29-2022 ADVANCE DIRECTIVE DISCUSSION ADVANCE DIRECTIVE DISCUSSION [facility] Start: 07-29-2022 DEPRESSION ASSESSMENT DEPRESSION ASS ESSMENT [facility] Start: 07-29-2021 ADVANCE DIRECTIVE DISCUSSION ADVANCE DIRECTIVE DISCUSSION [facility] Start: 07-29-2021 [facility] Start: 05-28-2017 Urine microalbumin profile DTa P,Tdap,Td Vaccine (1 - Tdap) [facility] Start: 2011 PNEUMOCOCCAL: 65+ (1 - PCV) PNEUMOCOCCAL: 65+ (1 - PCV) [facility] Start: 2006 RSV Vaccine (1 - 1-d ose 60+ series) RSV Vaccine (1 - 1-dose 60+ series) [facility] Start: 1996 SHINGRIX VACCINE (1 of 2) FRIAS GRIX VACCINE (1 of 2) [facility] Start: 1991 COLOGUARD (FIT-DNA) COLOGUARD (FIT-D NA) [facility] Start: 1991 Colonoscopy COLONOSCOPY [facility] Start: 1991 COLORECTAL CANCER SCREENING COLORECTAL CANCER SCREENING [facility] Start: [address] COLONOGRAPHY [facility] Start: 1991 FECAL OCCULT BLOOD FECAL OCCULT BLOO D [facility] Start: 1991 SIGMOIDOSCOPY SIGMOIDOSCOPY [facility] Start: 1981 LIPID SCREEN LIPID SCREEN [facility] Start: 1965 Urine microalbumin profile DTAP,TDAP ,TD (1 - Tdap) [facility] Start: 1965 Urine screening for protein Diabetes: Urine Protein Screening [facility] Start: 1964 HEPATITIS C SCREENING [facility] Start: 1964 Hepatitis C screening Hepatitis C [facility] Start: 01-02-1957 Glaucoma screening Diabetes: R etinopathy Screening [facility] Start: 1946 Medicare Annual Well ness (AWV) Medicare Annual Wellness (AWV) [facility] End: 07-06-2023 Mri brain brain stem w/o contrast material MRI BRAIN WO IVCON Radiology Routine PD (Parkinson's disease) (HCC) Dysarthria 1 Occurrences starting 06/06/2022 until 07/06/2023 [facility] Work Phone: Comment on above: 1 Occurrences starti ng 06/06/2022 until 07/06/2023 [facility] Immunizations Immunization Date Immunization Notes Care Provider Fa [facility] 04-22-2023 Influenza, Seasonal, Quadrivalent, Adjuvanted Nathan Bolton MD Work Phone: [facility] 04-23-2022 Influenza, High-dose Seasonal, Quadrivalent, Preservative Free Nathan Bolton MD Work Phone: [facility] 04-27-2021 Influenza, Seasonal, Quadrivalent, Adjuvanted Nathan Bolton MD Work Phone: [facility] 05-05-2020 Influenza, Seasonal, Quadrivalent, Adjuvanted Nathan Bolton MD Work Phone: [facility] 05-18-2019 Influenza, injectabl e, Madin Coco Canine Kidney, preservative free, quadrivalent Nathan Bolton MD Work Phone: [facility] 11-20-2018 zoster vaccine recombinant Jade Bolton MD Work Phone: [facility] 05-13-2018 Seasonal trivalent influenza vaccine, adjuvanted, preservative free Nathan Bolton MD Work Phone: [facility] 02-17-2018 zoster vaccine recombinant Jade Bolton MD Work Phone: [facility] 09-06-2017 pneumococcal polysaccharide vaccine, 23 valent Nathan Bolton MD Work Phone: [facility] 05-27-2017 tetanus and diphther ia toxoids, adsorbed, preservative free, for adult use (5 Lf of tetanus toxoid and 2 Lf of diphtheria toxoid) Nathan Bolton MD Work Phone: [facility] 04-29-2017 influenza, high dose seasonal, preservative-free Nathan Bolton MD Work Phone: [facility] 05-30-2016 influenza, high dose seasonal, preservative-free Nathan Bolton MD Work Phone: [facility] 05-30-2016 pneumococcal conjuga te vaccine, 13 valent Nathan Bolton MD Work Phone: [facility] 06-08-2015 influenza, high dose seasonal, preservative-free Nathan Bolton MD Work Phone: [facility] Payers Date Payer Category Payer Medicare [id number] 1958 Medicare [id number] 1945 Unknown [id number] 2.16.84 [id number] 1945 Unknown [id number] 2.16.84 0.1.661395.3.579.2.593 1946 Unknown [id number] 2.16.84 0.1.068952.3.579.2.593 1946 Unknown [id number] 2.16.84 0.1.659063.3.579.2.593 1946 Unknown [id number] 2.16.84 0.1.136931.3.579.2.593 1946 Unknown [id number] 2.16.84 0.1.466623.3.579.2.593 1946 Unknown [id number] 2.16.84 0.1.604061.3.579.2.593 1946 Unknown [id number] 2.16.84 0.1.493863.3.579.2.593 1946 Unknown [id number] 2.16.84 0.1.221159.3.579.2.593 1946 Unknown [id number] 2.16.84 0.1.616261.3.579.2.593 1946 Unknown [id number] 2.16.84 0.1.057333.3.579.2.593 1946 Unknown [id number] 2.16.84 0.1.973862.3.579.2.1259 1946 Unknown [id number] 2.16.84 0.1.424423.3.579.2.1259 1946 Unknown [id number] 2.16.84 0.1.205656.3.579.2.1259 1946 Unknown [id number] 2.16.84 0.1.129685.3.579.2.1259 1946 Unknown [id number] 2.16.84 0.1.920317.3.579.2.1259 1946 Unknown [id number] 2.16.84 0.1.346148.3.579.2.1259 1946 Unknown [id number] 2.16.84 0.1.657461.3.579.2.1259 Social History Date Type Detail Facility Start: 03-27-2019 End: 12-05-2022 Tobacco smoking status WVIS Never smoked tobacco [facility] Start: 03-27-2019 End: 12-05-2022 Tobacco use and exposure Smokeless tobacco non-user [facility] Start: 10-14-2020 End: 12-26-2023 Alcohol intake Lifetime non-drinker (finding) [facility] Start: 03-27-2019 History SDOH Alcohol Frequency 1 [facility] Start: 1945 Sex Assigned At Male C [facility] Start: 05-27-2022 End: 06-06-2022 Exposure to SARS-CoV-2 (event) Not sure [facility] Start: 12-05-2022 End: 12-25-2023 History of Social function [facility] Start: 12-05-2022 End: 12-25-2023 Tobacco use panel [facility] Adult Depression Screening Assessment 0 [facility] Start: 03-30-2019 Gender identity Identifies as male gender (finding) [facility] How often to you hav e a drink containing alcohol? Never [facility] Within the last year , have [...] al Text Equipment Identifier Dates once daily. [id number], [id number] Start: 12-15-2018 Comment on above: once daily. [...] Compazine or Phenergan. documented in this encounter [facility] 12-26-2023 History of Present illness Narrative [facility] - FOLLOW UP EVALUATION Donald Alberts [address] [facility] [address] Nathan Bolton MD [address] [facility] [address] Herrera Martinez is a 78 year old male with a history of PD. He is seen with his . Interval History Since Last Visit: The patient is having more issues with falling. 4(four) falls. Going to PT and DtD. Better with U-STEP Walking Stabilizer Walker. Wearing-off causes lots of trouble with his walking. More festinating. More kvghvruy-lm-xloc (FOG). The patient denies any recent illness [...] Left pathological reflexes: Kirstin's absent. Coordination Right: Kovoms-wb-elar normal. Rapid alternating movement normal.Left: Blhdbo-nr-vbxf normal. Rapid alternating movement normal. Gait Casual [...] counseling regarding preparing to see the patient, sste-vy-thin patient care, completing clinical documentation, obtaining and/or reviewing separately obtained history, performing a medically appropriate examination, counseling and educating the patient/family/caregiver, ordering medications, tests, or procedures, and communicating results to the patient/family/caregiver. I tried to answer all of the patient's questions and concerns during this visit. Donald Alberts DO Senior Staff Neurologist - [facility] documented in this encounter [facility] 09-10-2023 History of Present illness Narrative Associated [...] w KUB documented in this encounter [facility] 06-14-2023 Note HNO ID: [id number] Author: Donald Alberts, DO Service: ? Author Type: Physician Type: Progress Notes Filed: 06/14/2023 3:34 PM Note Text: [facility] - FOLLOW UP EVALUATION Nathan Bolton MD [address] [facility] [address] Herrera Martinez is a 77 year old male with a history of PD. He is seen with his . Interval History Since Last Visit: The patient had a swallowing test in late november 2022 - no issues other than more focus on swallowing was made to the patient. He is going to [facility] still. 1 fall in November o/w doing [...] Cardiac: Regular r (more content not included)... [facility] 02-20-2023 Miscellaneous Notes Last appt 12/05/22 MTG Requested Prescriptions Pending Prescriptions Disp Refills carbidopa-levodopa (SINEMET) 25-100 mg per tablet 540 tablet 3 Sig: Take 1.5 tablets by mouth four times daily. documented in this encounter [facility] 12-13-2022 Note PROCEDURE: XR HIP RT [...] authenticated by: AYAZ NICOLE Date: 2022-12-13 09:47 [facility] 12-13-2022 Note PROCEDURE: XR FOREAR M RT [...] by: AYAZ NICOLE Date: 2022-12-13 09:43 [facility] 12-13-2022 Note PROCEDURE: XR FOREAR M [...] authenticated by: AYAZ NICOLE Date: 2022-12-13 09:43 [facility] 12-05-2022 Note HNO ID: [id number] Author: Donald Alberts, DO Service: ? Author Type: Physician Type: Progress Notes Filed: 12/05/2022 2:18 PM Note Text: [facility] - FOLLOW UP EVALUATION Donald Alberts [address] [facility] [address] Nathan Bolton MD [address] [facility] [address] Herrera Martinez is a 77 year old male with a history of parkinsonism. He is seen with family. Interval History Since Last Visit: He is falling. There is more azlbpjuw-vo-hgqu (FOG) - this is the cause of the falls. He has fallen while he is carrying things. Multitasking is a big issue. There were two falls in the post op period following cataract surgery. FOG seems to be worse in the PM. There is drooling at night. The mucous in the back of the throat is the issue. No STATISTICAL CLERK for 6 years. The Sinemet is not [...] Right pathological reflex (more content not included)... [facility] 12-05-2022 Instructions Donald Alberts DO - 12/05/2022 2:12 PM EDT Medications 8A 1130A 3P 6P Sinemet 25/100 1.5 1.5 1.5 1.5 Azilect 1mg 1 0 0 0 documented in this encounter [facility] 12-05-2022 History of Present illness Narrative [facility] - FOLLOW UP EVALUATION Donald Alberts [address] [facility] [address] Nathan Bolton MD [address] [facility] [address] Herrera Martinez is a 77 year old male with a history of parkinsonism. He is seen with family. Interval History Since Last Visit: He is falling. There is more wtzspphn-om-rueb (FOG) - this is the cause of the falls. He has fallen while he is carrying things. Multitasking is a big issue. There were two falls in the post op period following cataract surgery. FOG seems to be worse in the PM. There is drooling at night. The mucous in the back of the throat is the issue. No STATISTICAL CLERK for 6 years. The Sinemet is not [...] Left pathological reflexes: Kirstin's absent. Coordination Right: Vuuzgj-ab-zbqo normal. Rapid alternating movement normal.Left: Pewgni-zk-bfvp normal. Rapid alternating movement normal. Gait Casual [...] addressed during this visit: Pd (parkinson's disease) ([facility]) (primary encounter diagnosis) Sialorrhea Hypophonia Plan: Continue current antiparkinsonian regimen as dosed other than increasing Sinemet 2. PA for botulinum toxin (Myobloc) injections 3. STATISTICAL CLERK locally for swallow evaluation Return in about 6 months (around 06/07/2023). Medical decision making was high complexity due to patient's, multiple symptoms, advancing disease The total time spent on the patient care was 30 minutes with greater than 50% of the time spent on counseling regarding preparing to see the patient, zejw-qs-ioma patient care, completing clinical documentation, obtaining and/or reviewing separately obtained history, performing a medically appropriate examination, counseling and educating the patient/family/caregiver, ordering medications, tests, or procedures, communicating with other HCPs (not separately reported), communicating results to the patient/family/caregiver, and care coordination (not separately reported) Donald Alberts DO Senior Staff Neurologist - [facility] Diagnosis: Sialorrhea (K11.7) Current Examination: There [...] EMG guidance: Yes documented in this encounter [facility] 09-27-2022 Note OPERATIVE NOTE OPERATION DATE: [...] ensuring mobility, phacoemulsification was performed in a dfalnne-emm-ufmjcc-type fashion. After all nuclear material had been [...] the following day for postoperative care. [facility] 09-27-2022 Note PREOPERATIVE HISTORY AND PHYSICAL [...] go forward with his elective procedure. [facility] 09-10-2022 Miscellaneous Notes Requested Prescriptions Pending Prescriptions Disp Refills rasagiline (AZILECT) 1 mg tab 90 tablet 1 Sig: Take 1 tablet by mouth once daily. documented in this encounter [facility] 08-30-2022 Note OPERATIVE NOTE OPERATION DATE: [...] ensuring mobility, phacoemulsification was performed in a jqwqkdd-oxn-ikaihd-type fashion. After all nuclear material had been [...] the following day for postoperative care. [facility] 08-30-2022 Note HISTORY AND PHYSICAL EXAMINATION [...] go forward with his elective procedure. [facility] 06-27-2022 Note CONSULTATION CONSULTATION DATE: 06/27/2022 [...] follow up on a p.r.n. basis. [facility] 06-22-2022 Miscellaneous Notes I spoke with Mr. Martinez to inform her MRI for Herrera is normal per Dr. Patino. ----- Message from Juan Patino MD sent at 06/20/2022 2:51 PM EST ----- Regarding: MRI results Suzanne, I am covering for Dr. Alberts today. Please let this patient know that his MRI results came back normal. Thanks, Dr. Patino documented in this encounter [facility] 06-20-2022 Note HNO ID: [id number] Author: RT Elo(R) Service: Radiology Author Type: [...] RT Elo(R) June 20, 2022 1:15 PM [facility] 06-06-2022 History of Present illness Narrative [facility] - FOLLOW UP EVALUATION Nathan Bolton MD [address] [facility] [address] Herrera Martinez is a 76 year old male with a history of PD. He is seen with his . Interval History Since Last Visit: The patient notes that he is more clumsy - the speech has worsened over the last couple of weeks. the walking has had more xuvsnjdv-by-fhmt (FOG). No falls are noted. The notes [...] Left pathological reflexes: Kirstin's absent. Coordination Right: Kvoozr-jt-azgc normal. Rapid alternating movement normal. Left: Yzuero-xw-rkpj normal. Rapid alternating movement normal. Gait Casual [...] addressed during this visit: Pd (parkinson's disease) ([facility]) (primary encounter diagnosis) Dysarthria Plan: Continue current antiparkinsonian regimen as dosed. MRI brain for dysarthria Medical decision making was high complexity due to patient's, multiple symptoms, advancing disease The total time spent on the patient care was 25 minutes with greater than 50% of the time spent on counseling regarding preparing to see the patient, gltu-fn-pkre patient care, completing clinical documentation, obtaining and/or reviewing separately obtained history, performing a medically appropriate examination, counseling and educating the patient/family/caregiver, ordering medications, tests, or procedures, and communicating results to the patient/family/caregiver. I tried to answer all of the patient's questions and concerns during this visit. Donald Alberts DO Senior Staff Neurologist - [facility] documented in this encounter [facility] 05-15-2022 Note CONSULTATION CONSULTATION DATE: 05/15/2022 CHIEF COMPLAINT: Low back pain, posterior thigh pain. HISTORY OF PRESENT ILLNESS: This is a very pleasant, 76-year-old gentleman who is accompanied by his . The patient suffers from Parkinson's. The patient is being treated at [facility] with regards to this. The patient [...] patient currently takes Mobic 7.5 daily, Tylenol [id number]. The patient also is on Sinemet, metformin, [...] mg IM. CC: Nathan Bolton M.D. [facility] Evaluation note Diagnosis PD (Parkinson's disease) (HCC)- Primary Paralysis agitans Dysarthria [facility] PD (Parkinson's disease) (HCC)- Primary Paralysis agitans Sialorrhea Disturbance of salivary secretion Hypophonia Other voice and resonance disorders [facility] PD (Parkinson's disease) (HCC) Paralysis agitans [facility] Diagnosis Sialorrhea- Primary Disturbance of salivary secretion [facility] Diagnosis Epigastric abdominal pain- Primary Abdominal pain, epigastric [facility] Diagnosis Parkinson's disease without dyskinesia or fluctuating manifestations (HCC)- Primary Sialorrhea Disturbance of salivary secretion documented in this encounter [facility] Summary Purpose Family History No Family History [...] Dysarthria Procedures PROVIDER ORDERED FOLLOW UP OFFICE/OUTPATIENT [facility] HIGH MDM 60-74 MINUTES Donald Alberts DO [address] [place] [address] Referral ID Status Reason Start Date Expiration Date V isits Requested Visits Authorized [id number] Pending Review 12/04/2022 03/04/2023 1 1 Specialty Diagnoses / Procedures Referred By El chaves Referred To Contact MR IMAGING Diagnoses PD (Parkinson's disease) (HCC) Dysarthria Procedures MRI BRAIN WO IVCON MRI BRAIN BRAIN STEM W/O CONTRAST MATERIAL Donald Alberts DO [address] [place] [address] Mr Imaging Referral ID Status Reason Start Date Expiration Date Visits Requested Visits Authorized [id number] Authorized Auto-Generat ed Referral 06/06/2022 07/06/2023 1 1 Specialty Diagnoses / Procedures Referred By El chaves Referred To Contact Diagnoses PD (Parkinson's disease) (HCC) Procedures PROVIDER ORDERED FOLLOW UP OFFICE/OUTPATIENT [facility] 60-74 MINUTES Donald Alberts DO [address] [id number] Referral ID Status Reason Start Date Expiration Date V isits Requested Visits Authorized [id number] Pending Review 06/07/2023 09/05/2023 1 1 Specialty Diagnoses / Procedures Referred By El chaves Referred To Contact [facility] Diagnoses PD (Parkinson's disease) (HCC) Sialorrhea Hypophonia Procedures CONSULT TO SPEECH THERAPY OFFICE/OUTPATIENT [facility] 60-74 [place] [address] [place] [address] [facility] [address] [place] [address] Referral ID Status Reason Start Date Expiration Date Visits Requested Visits Authorized [id number] Pending Review Auto-Generat ed Referral 12/05/2022 12/05/2023 1 1 Additional Source Comments (unrecognized sect ion and content) No Status Records FoundNo Status Records FoundNo Status Records FoundNo Status Records FoundNo Status Records FoundNo Status Records Found INFORMATION SOURCE (unrecogn ized section and content) DATE CREATED AUTHOR 03/26/2020 [facility] DATE CREATED AUTHOR AUTHOR'S ORGANIZ ATION 11/22/2020 [facility] DATE CREATED AUTHOR AUTHOR'S ORGANIZ ATION 06/22/2022 [facility] DATE CREATED AUTHOR AUTHOR'S ORGANIZ ATION [facility]/04[facility]2023 [facility] DATE CREATED AUTHOR AUTHOR'S ORGANIZ ATION 06/17/2023 [facility] DATE CREATED AUTHOR AUTHOR'S ORGANIZ ATION 03/08/2024 [facility] EPIC Source Comments (unrecognize d section and content) In the event this informatio n is protected by the Federal Confidentiality of Alcohol and Drug Abuse Patient Records regulations: The Federal rules restrict any use of the information to criminally investigate or prosecute any alcohol or drug abuse patient.[facility] event this information is protected by the Federal Confidentiality of Alcohol and Drug Abuse Patient Records regulations: The Federal rules restrict any use of the information to criminally investigate or prosecute any alcohol or drug abuse patient.[facility] the event this information is protected by the Federal Confidentiality of Alcohol and Drug Abuse Patient Records regulations: The Federal rules restrict any use of the information to criminally investigate or prosecute any alcohol or drug abuse patient.[facility] the event this information is protected by the Federal Confidentiality of Alcohol and Drug Abuse Patient Records regulations: The Federal rules restrict any use of the information to criminally investigate or prosecute any alcohol or drug abuse patient.[facility] the event this information is protected by the Federal Confidentiality of Alcohol and Drug Abuse Patient Records regulations: The Federal rules restrict any use of the information to criminally investigate or prosecute any alcohol or drug abuse patient.[facility] the event this information is protected by the Federal Confidentiality of Alcohol and Drug Abuse Patient Records regulations: The Federal rules restrict any use of the information to criminally investigate or prosecute any alcohol or drug abuse patient.[facility] the event this information is protected by the Federal Confidentiality of Alcohol and Drug Abuse Patient Records regulations: The Federal rules restrict any use of the information to criminally investigate or prosecute any alcohol or drug abuse patient.[facility] the event this information is protected by the Federal Confidentiality of Alcohol and Drug Abuse Patient Records regulations: The Federal rules restrict any use of the information to criminally investigate or prosecute any alcohol or drug abuse patient.[facility] the event this information is protected by the Federal Confidentiality of Alcohol and Drug Abuse Patient Records regulations: The Federal rules restrict any use of the information to criminally investigate or prosecute any alcohol or drug abuse patient.[facility] the event this information is protected by the Federal Confidentiality of Alcohol and Drug Abuse Patient Records regulations: The Federal rules restrict any use of the information to criminally investigate or prosecute any alcohol or drug abuse patient.[facility] Reason for Visit (unrecogniz ed section and content) Reason Comments Established Patient (Parkinson's disease Reason Comments Results MRI NL Reason Onset Date Comments Refill Request 09/10/2022 Reason Comments Follow Up Pt states that feet are freezing more frequently and is drooling during sleep. Has had a 4 falls in the last 6 weeks Specialty Diagnoses / Procedures Referred By El chaves Referred To Contact Diagnoses PD (Parkinson's disease) (HCC) Dysarthria Procedures PROVIDER ORDERED FOLLOW UP OFFICE/OUTPATIENT NEW HIGH MDM 60-74 MINUTES Donald Alberts DO [address] [place] [address] Referral ID Status Reason Start Date Expiration Date V isits Requested Visits Authorized [id number] Pending Review 12/04/2022 03/04/2023 1 1 Reason [...] 60-74 MINUTES Donald Alberts, DO [address] [place] [address] [facility] [address] [place] [address] Referral ID Status Reason Start Date Expiration Date V isits Requested Visits Authorized [id number] Authorized 07/29/2023 07/28/2024 99 99 Care Teams (unrecognized sec tion and content) Material Carrier Relationship Specialty Start Date End Date Nathan Bolton [address] [place] [address] PCP - General Family Medicine 07/29/20 Material Carrier Relationship Specialty Start Date End Date Nathan Bolton [address] [place] [address] PCP - General Family Medicine 07/29/20 Material Carrier Relationship Specialty Start Date End Date Nathan Bolton [address] [place] [address] PCP - General Family Medicine 07/29/20 Material Carrier Relationship Specialty Start Date End Date Nathan Bolton [address] [place] [address] PCP - General Family Medicine 07/29/20 Material Carrier Relationship Specialty Start Date End Date Nathan Bolton [address] [place] [address] PCP - General Family Medicine 07/29/20 Material Carrier Relationship Specialty Start Date End Date Nathan Bolton [address] [place] [address] [facility] 07/29/20 Material Carrier Relationship Specialty Start Date End Date Nathan Bolton [address] [place] [address] [facility] 07/29/20 Material Carrier Relationship Specialty Start Date End Date Nathan Bolton MD [address] [place] [address] [facility] 09/10/23 Material Carrier Relationship Specialty Start Date End Date Nathan Bolton MD [address] [place] [address] PCP [facility] 09/10/23 Material Carrier Relationship Specialty Start Date End Date Nathan Bolton [address] [place] [address] [facility] 07/29/20 Material Carrier Relationship Specialty Start Date End Date Nathan Bolton [address] [place] [address] [facility] 07/29/20 FOR RECORDS PERTAINING TO PATIENTS [...] BE BASED ON THE PRIMARY CLINICAL RECORDS. [facility] [employer] [facility]. provides no warranty or guarantee of the accuracy or completeness of information in this document.
[2024-03-19 15:59] LABS: Basophils Percent Auto 0.4 % (0.2-2.0); Eosinophils Absolute Auto 0.1 10^3/uL (0.0-0.7); Eosinophils Percent Auto 2.3 % (0.9-7.0); Hematocrit 43.8 % (42.0-54.0); Hemoglobin 15.3 g/dL (14.0-18.0); Immature Granulocytes Abs Auto 0.01 10^3/uL (0.00-0.03); Immature Granulocytes Pct Auto 0.2 % (0.0-0.5); Lymphocytes Absolute Auto 1.6 10^3/uL (1.2-3.8); Mean Corpuscular HGB Conc 34.9 g/dL (29.9-35.2); Mean Corpuscular Hemoglobin 31.1 pg (25.9-34.0); Mean Platelet Volume 10.9 fL (9.5-13.5); Monocytes Absolute Auto 0.5 10^3/uL (0.3-0.8); Monocytes Percent Auto 9.2 % (1.7-12.0); Neutrophils Percent Auto 57.9 % (43.0-75.0); Platelet Count 120 10^3/uL (150-450); Red Blood Count 4.92 10^6/uL (4.70-6.10); Red Cell Distribution Width 12.8 % (11.0-15.0); White Blood Count 5.2 10^3/uL (4.0-11.0)
[2024-03-19] MEDS: ONDANSETRON PF 4 MG/2 ML VIAL IV (16:08)
[2024-03-19] MEDS: FENTANYL CITRATE/PF 100 MCG/2 ML VIAL 50 MCG IV (16:08)
[2024-03-19 16:13] LABS: INR 1.07; Prothrombin Time 11.3 sec (9.0-11.6)
[2024-03-19 16:14] LABS: Alanine Aminotransferase 21 U/L (16-63); Albumin Globulin Ratio 1.2; Albumin Level 3.8 g/dL (3.4-5.0); Alkaline Phosphatase 82 U/L (46-116); Anion Gap 11.8; Aspartate Amino Transferase 30 U/L (15-37); BUN Creatinine Ratio 15.7; Bilirubin Total 0.7 mg/dL (0.2-1.0); Calcium 9.1 mg/dL (8.5-10.1); Carbon Dioxide 28.4 mmol/L (21.0-32.0); Chloride 100 mmol/L (98-107); Estimated GFR (African America >60 (>=60); Estimated GFR (Non-African Ame >60 (>=60); Globulin 3.2 g/dL; Glucose 275 mg/dL (74-106); Potassium 4.2 mmol/L (3.5-5.1); Sodium 136 mmol/L (136-145)
[2024-03-19 16:16] LABS: Troponin I High Sensitivity <4.0 pg/mL (4.0-76.1)
--- NOTE | 2024-03-19 16:52 | CT_ITS ---
The [address] [address] Patient Name: TASHA NEWBERRY MRN: [id number] date: 1945 Sex: M Assigned Patient Location: ER Current Patient Location: Accession/Order Number: [id number] Exam Date: 03/19/2024 16:30 Report Date: 03/19/2024 17:16 At the request of: PRADEEP HOUGH Procedure: CT pelvis wo con EXAM: CT pelvis wo con HISTORY: The patient is a 78-year-old male. Right hip pain COMPARISON: 12/03/2023. TECHNIQUE: CT images were obtained through the bony pelvis and both hips without intravenous contrast and reformatted in 2 dimensions. Dose reduction techniques were achieved by using automated exposure control and/or adjustment of mA and/or kV according to patient size and/or use of iterative reconstruction technique. FINDINGS: The bone images demonstrate no fractures or cortical discontinuities within either proximal femur or elsewhere throughout the bony pelvis. The widths and alignment of both hip joints are relatively maintained. The sacroiliac joints are maintained. The pubic symphysis is maintained. Incidentally noted is evidence of advanced degenerative disc disease within the lower lumbar spine. This may contribute to the patient's hip symptoms, and could be better evaluated with dedicated lumbar spine imaging. The soft tissue images demonstrate increased density within the subcutaneous tissues lateral to the right greater trochanter, seen on axial image 69 and coronal image 54. This was not present on the prior CT scan of 12/03/2023. This could represent a subcutaneous hematoma, and this should be correlated with a history of recent trauma at this site. No other abnormal fluid collections are seen on this non-contrast enhanced study. CT/CT pelvis wo con IMPRESSION: 1. Possible subcutaneous hematoma lateral to the right greater trochanter. 2. No fractures or dislocations. 3. Degenerative disc disease of the lower lumbar spine. Electronically authenticated by: BASIM MORENO Date: 03/19/2024 17:16
--- NOTE | 2024-03-19 16:52 | CT_ITS ---
The [address] [address] Patient Name: TASHA NEWBERRY MRN: [id number] date: 1945 Sex: M Assigned Patient Location: ER Current Patient Location: ER Accession/Order Number: [id number] Exam Date: 03/19/2024 16:35 Report Date: 03/19/2024 17:09 At the request of: KAMALJIT SAUCEDO Procedure: CT head/brain wo con EXAM: CT head/brain wo con HISTORY: Fall COMPARISON: 02/02/2024 TECHNIQUE: Multiple computed tomograms of the head were obtained, with sagittal and coronal reconstructions. FINDINGS: The ventricles are not enlarged, the lateral ventricles are symmetric and the third ventricles in the midline. The sylvian fissures and cortical sulci are unremarkable. There is no evidence of an intracranial hemorrhage, mass lesion or apparent acute infarct. Slight patchy diminished attenuation is seen in the periventricular deep white matter. The cerebellum and visualized brainstem are intact. Bilateral lens implants are in place. The visualized paranasal sinuses are clear. The middle ears are aerated and the mastoid sinuses are clear. Abnormal soft tissue in the external auditory canal on the left is probably cerumen. There is no evidence of an acute skull fracture. CT/CT head/brain wo con IMPRESSION: There is no evidence of an intracranial hemorrhage, mass lesion or apparent acute infarct. Slight patchy diminished attenuation in the deep white matter suggests early small vessel ischemic changes. The paranasal sinuses are clear. There is no apparent acute skull fracture. The overall appearance unchanged. Electronically authenticated by: RUBEN KHANNA Date: 03/19/2024 17:09
--- NOTE | 2024-03-19 16:52 | CT_ITS ---
The [address] [address] Patient Name: TASHA NEWBERRY MRN: [id number] date: 1945 Sex: M Assigned Patient Location: ER Current Patient Location: ER Accession/Order Number: [id number] Exam Date: 03/19/2024 16:35 Report Date: 03/19/2024 17:18 At the request of: KAMALJIT SAUCEDO Procedure: CT cervical spine wo con EXAM: CT cervical spine wo con HISTORY: fall COMPARISON: 07/18/2023 TECHNIQUE: CT of the cervical spine was obtained without contrast. Axial, coronal and sagittal reconstructions were obtained. FINDINGS: There is no CT evidence of an acute fracture. Subtle levoconvex scoliosis is seen. There is grade 1 retrolisthesis of C3 over C4 and C4 over C5. The atlantooccipital and atlantoaxial articulation is preserved. Degenerative changes are seen at the atlantoaxial articulation. C2-C3: Disc bulge is seen. Mild left neural foramina stenosis. C3-C4: There is moderate bilateral neural foramina stenosis secondary to disc degenerative changes and facet joint osteoarthritis. C4-C5: There is severe right facet joint osteoarthritis. Moderate bilateral neural foramina stenosis secondary to disc degenerative changes and facet joint osteoarthritis. C5-C6: Severe right neural foramina stenosis secondary to disc degenerative changes and facet joint osteoarthritis. C6-C7: There is moderate left neural foramina stenosis secondary to disc degenerative changes. C7-T1: There is mild bilateral neural foramina stenosis secondary to disc degenerative changes. Emphysematous changes are seen in the visualized lung apices. CT/CT cervical spine wo con IMPRESSION: 1. No acute fracture or subluxation. 2. Diffuse disc degenerative changes. Electronically authenticated by: CASEY NAVARRO Date: 03/19/2024 17:18
[2024-03-19 17:43] VITALS: BP 132/86; PULSE 68; O2SAT 98
== END 2024-03-19 17:46 | disposition home or self-care (01) ==
PROVIDERS: Physician Assistant; Emergency Provider Emergency Medicine; PCP Family Medicine
DX: S09.8XXA Other specified injuries of head, initial encounter (principal); S70.01XA Contusion of right hip, initial encounter; G20.A1 Parkinson's disease without dyskinesia, without mention of fluctuations; W19.XXXA Unspecified fall, initial encounter
CPT/HCPCS: 36415; 70450; 72125; 72192; 80053; 84484; 85025; 85610; 96374; 96375; 99285; J2405; J3010

== ENCOUNTER 2024-06-08 08:57 | Outpatient (OUT) | payer MEDICARE, SELFPAY ==
[2024-06-08 11:25] LABS: Estimated Average Glucose 229 mg/dL; Glycohemoglobin A1C 9.6 % (4.5-6.2)
== END 2024-06-08 08:58 | disposition home or self-care (01) ==
LOC: LAB 08:59
PROVIDERS: PCP Family Medicine; Visit Provider Family Medicine
DX: E11.65 Type 2 diabetes mellitus with hyperglycemia (principal)
CPT/HCPCS: 36415; 83036

== ENCOUNTER 2024-09-03 14:29 | Emergency (ER) | payer MEDICARE, SELFPAY ==
[2024-09-03 14:39] VITALS: BP 141/79; PULSE 94; TEMP 36.8; O2SAT 99; BMI 20.9
--- NOTE | 2024-09-03 15:05 | XR_ITS ---
The [address] [address] Patient Name: TASHA NEWBERRY MRN: [id number] date: 1945 Sex: M Assigned Patient Location: ER Current Patient Location: ER Accession/Order Number: [id number] Exam Date: 09/03/2024 14:55 Report Date: 09/03/2024 15:31 At the request of: BHUMI GARCIA Procedure: XR knee RT 3V PROCEDURE: XR knee RT 3V COMPARISON: None. HISTORY: Pain FINDINGS: BONES:No fracture, acute abnormality, or significant arthropathy. SOFT TISSUES:Negative. No visible soft tissue swelling. EFFUSION:None visible. OTHER: Extensive vascular calcifications XR/XR knee RT 3V IMPRESSION: No acute abnormality Electronically authenticated by: NANO WILSON Date: 09/03/2024 15:31
--- NOTE | 2024-09-03 16:13 | ED_ITS ---
HPI HPI - General Adult General Chief complaint: Extremity Injury, Lower Stated complaint: LOWER EXTREMITY PAIN Time Seen by Provider: 09/03/24 15:43 Source: patient Mode of arrival: walk-in History of Present Illness HPI narrative: Patient presents to ED complaining of right knee pain. Patient was at physical therapy and he was doing step ups when he had felt a pop and had a twinge behind his knee. He is able to walk but does have some pain with palpation behind the knee. He did not fall or injure himself in any other way. He has a history of Parkinson's disease and he goes to physical therapy for strengthening. Patient had an x-ray completed from the waiting room due to high volume in the ER which was negative. He was brought back to room 10 for evaluation. Upon evaluation the patient is actually having pain behind the knee and the medial aspect at the insertion of the gastroc. No calf pain or swelling. Normal distal pulses and sensation. Related Data Home Medications ?Medication ?Instructions ?Recorded ?Confirmed carbidopa 25 mg-levodopa 100 mg 1.5 tab PO .4 times per day 02/07/23 12/03/23 tablet glipizide 5 mg tablet 5 mg PO DAILY 02/07/23 12/03/23 meloxicam 7.5 mg tablet 7.5 mg PO DAILY 02/07/23 12/03/23 metoprolol succinate 50 mg 25 mg PO DAILY 02/07/23 12/03/23 tablet,extended release 24 hr ramipril 1.25 mg capsule 1.25 mg PO DAILY 02/07/23 12/03/23 rasagiline 1 mg tablet 1 mg PO DAILY 02/07/23 12/03/23 simvastatin 40 mg tablet 40 mg PO .QHS 02/07/23 12/03/23 Previous Rx's ?Medication ?Instructions ?Recorded cephalexin 500 mg capsule 500 mg PO Q8H 5 days #15 caps 02/07/23 methocarbamol 500 mg tablet 500 mg PO TID #12 tabs 12/03/23 oxycodone-acetaminophen 5 mg-325 1 tab PO Q8H PRN pain #9 tabs 02/02/24 mg tablet (Percocet) Allergies Allergy/AdvReac Type Severity Reaction Status Date / Time No Known Drug Allergies Allergy Verified 07/18/23 12:18 Opioid HPI Opioid Management Most Recent Opioid Data: Last Pain Scale 8 03/19/24 16:08 03/19/24 Review of Systems ROS Status of ROS 10 or more systems reviewed and unremark able except as noted in history and below PFSH PFS Social History Smoking status: Never smoker Little interest or pleasure in doing things: not at all Feeling down, depressed, or hopeless: not at all Exam Narrative Exam Narrative: General: alert, no acute distress Cardiovascular: regular rate and rhythm, normal peripheral perfusion. Respiratory: Lungs CTA, respirations non labored. Extremities: Tenderness to palpation at the insertion of the medial aspect of the gastroc muscle behind the knee. No calf swelling or pain. No knee pain anteriorly or joint effusion Neurological: oriented x 4, LOC appropriate for age. Constitutional Vital Signs, click to edit/add: Last Vital Signs Temp 98.2 F 09/03/24 14:39 Pulse 94 H 09/03/24 14:39 Resp 18 09/03/24 14:39 BP 141/79 09/03/24 14:39 Pulse Ox 99 09/03/24 14:39 O2 Del Method Room Air 09/03/24 14:39 Course Vital Signs Vital signs: Vital Signs Temperature 98.2 F 09/03/24 14:39 Pulse Rate 94 H 09/03/24 14:39 Respiratory Rate 18 09/03/24 14:39 Blood Pressure 141/79 09/03/24 14:39 Pulse Oximetry 99 09/03/24 14:39 Oxygen Delivery Method Room Air 09/03/24 14:39 Temperature 98.2 F 09/03/24 14:39 Pulse Rate 94 H 09/03/24 14:39 Respiratory Rate 18 09/03/24 14:39 Blood Pressure 141/79 09/03/24 14:39 Pulse Oximetry 99 09/03/24 14:39 Oxygen Delivery Method Room Air 09/03/24 14:39 Medical Decision Making MDM Narrative Medical decision making narrative: X-ray is negative for any acute finding. Most likely patient strained his gastroc insertion when he was doing the step ups in physical therapy. Patient was given an Toby wrap and instructed to continue to move the leg around point and flex the toe prevent blood clot. Wear the Toby wrap if it is comfortable. Return to ED if worsening symptoms otherwise follow-up with family doctor. Ortho follow-up if it continues to be an issue. Patient and family are comfortable with care plan for home Differential Diagnosis Differential Diagnosis: Fracture sprain strain blood clot Imaging Data Chest x-ray: Radiologist's impression: ITS Impressions Knee X-Ray 09/03/24 15:05 IMPRESSION: No acute abnormality Electronically authenticated by: NANO WILSON Date: 09/03/2024 15:31 Discharge Plan Discharge Chief Complaint: Extremity Injury, Lower Clinical Impression: Strain of right calf muscle Patient Disposition: Home, Self-Care Time of Disposition Decision: 15:54 Condition: Good Mode of Transportation: Private Vehicle Prescriptions / Home Meds: No Action oxycodone-acetaminophen [Percocet] 5-325 mg tablet 1 tab PO Q8H PRN (Reason: pain) Qty: 9 0RF carbidopa-levodopa 25-100 mg tablet 1.5 tab PO .4 times per day glipizide 5 mg tablet 5 mg PO DAILY meloxicam 7.5 mg tablet 7.5 mg PO DAILY metoprolol succinate 50 mg tablet extended release 24 hr 25 mg PO DAILY ramipril 1.25 mg capsule 1.25 mg PO DAILY rasagiline 1 mg tablet 1 mg PO DAILY simvastatin 40 mg tablet 40 mg PO .QHS cephalexin 500 mg capsule 500 mg PO Q8H 5 Days Qty: 15 0RF methocarbamol 500 mg tablet 500 mg PO TID Qty: 12 0RF Print Language: Occitan Instructions: Muscle Cramp (ED) Referrals: Nathan Hartman MD [Primary Care Provider] - 1 week Discharge Date/Time: 09/03/24 16:08
== END 2024-09-03 16:08 | disposition home or self-care (01) ==
PROVIDERS: Emergency Provider Emergency Medicine; PCP Family Medicine
DX: S86.811A Strain of other muscle(s) and tendon(s) at lower leg level, right leg, initial encounter (principal); X58.XXXA Exposure to other specified factors, initial encounter; G20.A1 Parkinson's disease without dyskinesia, without mention of fluctuations
CPT/HCPCS: 73562; 99283

== ENCOUNTER 2024-09-14 18:05 | Emergency (ER) | payer MEDICARE, SELFPAY ==
[2024-09-14 18:10] VITALS: BP 137/75; PULSE 89; TEMP 36.4; O2SAT 99; BMI 25.4
--- OUTSIDE RECORDS SUMMARY | 2024-09-14 18:19 | XMS_ITS | CCD ---
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 Name Role Phone Nathan Bolton Primary Care Provider GUAJARDO ., DR NIKHIL Ross Admitting Unavailable GUAJARDO ., DR NIKHIL Ross Attending Unavailable LE .DANIEL Consulting Unavailable NADERER, DR NATHAN Alonso Primary Care Unavailable GUAJARDO ., DR NIKHIL Ross Admitting Unavailable GUAJADRO ., DR NIKHIL Ross Consulting Unavailable GUAJARDO ., DR NIKHIL Ross Attending Unavailable NADERER, DR NATHAN Alonso Primary Care Unavailable NICA HOUSE Consulting Unavailable GUAJARDO ., DR NIKHIL Ross Admitting Unavailable GUAJARDO ., DR NIKHIL Ross Consulting Unavailable NADERER, DR ANTHAN Alonso Primary Care Unavailable GUAJARDO ., DR NIKHIL Ross Attending Unavailable ZAHLSANIYA CAAL Consulting Unavailable SANIYA GARZON Attending Unavailable NADERER, DR NATHAN Alonso Primary Care Unavailable SANIYA GARZON Admitting Unavailable ZASANIYA BROWN Consulting Unavailable SANIYA GARZON Attending Unavailable SANIYA GARZON Admitting Unavailable NADEREGideon, DR NATHAN Alonso Primary Care Unavailable MISC, DR NOBLE Admitting Unavailable MISC, DR NOBLE Attending Unavailable NADERER, DR NATHAN Alonso Primary Care Unavailable GUAJARDO ., DR NIKHIL Ross Admitting Unavailable GUAJARDO ., DR NIKHIL Ross Consulting Unavailable GUAJARDO ., DR NIKHIL Ross Attending Unavailable NADERER, DR NATHAN Alonso Primary Care Unavailable NADEREGideon, DR NATHAN Alonso Primary Care Unavailable HOANG, DR NATHAN Alonso Consulting Unavailable NADEREGideon, DR NATHAN Alonso Attending Unavailable NADERER, DR NATHAN Alonso Admitting Unavailable NADERER, DR NATHAN Alonso Consulting Unavailable NADEREGideon, DR NATHAN Alonso Attending Unavailable NADERER, DR NATHAN Alonso Admitting Unavailable NADEREGideon, DR NATHAN Alonso Primary Care Unavailable MISC, DR NOBLE Attending Unavailable MISC, DR NOBLE Admitting Unavailable NADERER, DR NATHAN Alonso Primary Care Unavailable SADAF .JOANNE Attending Unavailable JOANNE MÁRQUEZ Admitting Unavailable DR AYAZ NICOLE Consulting Unavailable HOANG, DR NATHAN Alonso Primary Care Unavailable JOANNE MÁRQUEZ Consulting Unavailable Nathan Bolton Primary Care Provider DONALD ALBERTS Attending Unavailable NATHAN BOLTON Primary Care Unavailable DANYTYULI, DONALD T Referring Unavailable DONALD ALBERTS Attending Unavailable NATHAN BOLTON Primary Care Unavailable Nathan Bolton MD Primary Care Provider Nathan Bolton Primary Care Provider [phone] YOBANY GONZALES Referring Unavailable NATHAN BOLTON Primary Care Unavailable Nathan Bolton MD Primary Care Provider YOBANY GONZALES Attending Unavailable NATHAN BOLTON Referring Unavailable NATHAN BOLTON Primary Care Unavailable Nathan Bolton MD Primary Care Provider DONALD ALBERTS Referring Unavailable ARISTEO, DONALD Attending Unavailable NATALIYAERENATHAN Meneses Primary Care Unavailable GOSTYULI, DONALD Attending Unavailable NATALIYAERENATHAN Meneses Primary Care Unavailable NATHAN BOLTON Primary Care Unavailable Gostyuli GARNER, Donald T Attending Unavaila ble Gostkocecy GARNER, Donald T Admitting Unavaila ble NATALIYAEREGideon, NATHAN Attending Unavailable NATALIYAERENATHAN Meneses Attending Unavailable NATALIYAEREGideon, NATHAN Attending Unavailable AYAZ SANTO Attending Unavailable SHAIKH GILLILAND Attending Unavailable SHAIKH GILLILAND Attending Unavailable NADERER, NATHAN Attending Unavailable AYAZ SANTO Attending Unavailable NADERER, NATHAN Attending Unavailable AYAZ SANTO Attending Unavailable Medications Current Medications Medication Drug Class(es) Dates Sig (Normalized) Sig (Original) 8 hr acetaminophen 650 mg extended release oral tablet (14 sources) take 1 tablet by mouth every eight hours as needed for pain acetaminophen (Tylenol 8 Hour) 650 MG ER tablet Take 650 mg by mouth every 8 (eight) hours if needed for mild pain. Do not crush, chew, or split. Active aspirin 81 mg delayed release oral tablet (20 sources) Platelet Aggregation Inhibitor, Nonsteroidal Anti-inflammatory Drug take 1 tablet by mouth in the morning aspirin 81 MG EC tablet Take 81 mg by mouth in the morning. Active Comment on above: Take 81 mg by mouth once daily. atropine sulfate 10 mg/ml ophthalmic solution (9 sources) Anticholinergic, Cholinergic Muscarinic Antagonist Start: 12-26-2023 [...] mg / levodopa 100 mg oral tablet (20 sources) Aromatic Amino Acid Decarboxylation Inhibitor, Aromatic Amino Acid Start: 12-26-2023 End: 12-25-2024 carbidopa-levodopa (SINEMET) 25-100 mg per tablet Indications: PD (Parkinson's disease) (HCC) Take 2 tablets by mouth four times [...] daily. 405 tablet 1 09/10/2022 12/05/2022 Discontinued Start: 05-09-2021 carbidopa-levo dopa (SINEMET) 25-100 mg per tablet Take 1.5 tablets by mouth in the morning and 1.5 tablets at noon and 1.5 tablets in the evening and 1.5 tablets before bedtime. 05/09/2021 Active carbidopa-levodo pa (Parcopa) 25-100 MG disintegrating tablet Take 2 tablets by mouth in the morning and 2 tablets at noon and 2 tablets in the evening and 2 tablets before bedtime. 1 1/2 tab 4x daily. Active Comment on above: Take 1.5 tablets by mouth three times daily. Take 1.5 tablets by mouth four times daily. empagliflozin 25 mg oral tablet (10 sources) Sodium-Glucose Cotransporter 2 Inhibitor Start: 06-08-20 24 take 1 tablet by mouth once daily empagliflozin (Jardiance) 25 MG Indications: Type 2 diabetes mellitus with hyperglycemia, without long-term current use of insulin (CMS/HCC) Take 1 tablet (25 mg) by mouth Daily 30 tablet 3 06/08/2024 Active glipiZIDE 10 mg oral tablet (20 sources) Sulfonylurea Start: 02-17-20 24 take 1 tablet by mouth in the morning glipiZIDE (Glucotrol) 10 MG tablet Indications: Type 2 diabetes mellitus with hyperglycemia, without long-term current use of insulin (CMS/HCC) Take 1 tablet (10 mg) by mouth in the morning and 1 tablet (10 mg) in the evening. Take before meals. 180 tablet 3 02/17/2024 Active Start: 07-01-2023 take 1 tablet by evsin th in the morning glipiZIDE (Glucotrol) 10 MG tablet Indications: Type 2 diabetes mellitus with hyperglycemia, without long-term current use of insulin (CMS/HCC) Take 1 tablet (10 mg) by mouth in the morning. 90 tablet 3 07/01/2023 Active take 1 tablet by esvin th twice daily glipiZIDE (GLUCOTROL XL) 5 mg 24 hr tablet Take 5 mg by mouth two times a day. Active take 1 tablet by esvin th once daily glipiZIDE (GLUCOTROL XL) 5 mg 24 hr tablet Take 5 mg by mouth once daily. 0 Active Comment on above: Take 5 mg by mouth o nce daily. Magnesium (20 sources) take 1 tablet by mouth in the morning magnesium 250 mg tablet Indications: hypomagnesemia Take 1 tablet (250 mg total) by mouth in the morning. Indications: low amount of magnesium in the blood. Active take 1 tablet by mouth once katheryn y Magnesium 250 mg tab Take 250 mg by mouth once daily. Active magnesium 250 MG tablet Take by mouth. Active magnesium 250 MG tablet Take by mouth. 0 Active take 1 tablet by mouth once katheryn y Magnesium 250 mg tab Take 250 mg by mouth once daily. 0 Active Comment on above: Take 250 mg by mouth once daily. meloxicam 7.5 mg oral tablet (20 sources) Nonsteroidal Anti-inflammatory Drug Start: 9 End: 5 take 1 tablet by mouth once daily meloxicam (Mobic) 7.5 MG tablet Indications: DDD (degenerative disc disease), lumbar Take 1 tablet (7.5 mg) by mouth Daily 90 tablet 3 02/17/2024 02/16/2025 Active Comment on above: Take 7.5 mg by mouth once daily. 24 hr metFORMIN hydrochloride 500 mg extended release oral tablet (20 sources) Biguanide Start: 4 take 1 tablet by mouth every twenty-four hours in the morning metFORMIN XR (Glucophage-XR) 500 MG 24 hr tablet Indications: Type 2 diabetes mellitus with hyperglycemia, without long-term current use of insulin ([facility]) Take 1 tablet (500 mg) by mouth in the morning and 1 tablet (500 mg) before bedtime. Do not crush, chew, or split.. 180 tablet 3 02/17/2024 Active Start: 03-16-2019 metFORMIN ER ( GLUCOPHAGE XR) 500 mg 24 hr tablet 500 mg once daily. 0 03/16/2019 Active metFORMIN (GLUCO PHAGE) 500 mg tablet Indications: type 2 diabetes mellitus Take 1 tablet (500 mg total) by mouth in the morning and 1 tablet (500 mg total) before bedtime. Indications: type 2 diabetes mellitus. Active metFORMIN, OSM, (Fortamet) 500 MG 24 [...] succinate 50 mg extended release oral tablet (19 sources) beta-Adrenergic Feng Start: 10-04-2020 take 1 tablet by mouth every twenty-four hours in the morning metoprolol succinate XL (TOPROL-XL) 50 mg 24 hr tablet Indications: hypertension Take 1 tablet (50 mg total) by mouth in the morning. Indications: high blood pressure. 10/04/2020 Active Start: 02-17-2019 metoprolol suc cinate ER (TOPROL XL) 50 mg 24 hr tablet 50 mg once daily. 1/2 tablet daily 0 02/17/2019 Active Start: 02-17-2019 metoprolol suc cinate ER (TOPROL XL) 50 mg 24 hr tablet 50 mg once daily. 0 02/17/2019 Active Comment on above: 50 mg once daily. Multiple Vitamin (multivitamin) tablet (14 sources) take 1 tablet by mouth in the morning Multiple Vitamin (multivitamin) tablet Take 1 tablet by mouth in the morning. Active take 1 tablet by mouth in the mo rning Multiple Vitamin (multivitamin) tablet Take 1 tablet by mouth in the morning. 0 Active tuvokney-zpso-FV-calcium &mi ns (THERAGRAN-M) 9 mg iron-400 mcg tablet (1 source) syyrptrk-ugtv-NP -calcium &mins (THERAGRAN-M) 9 mg iron-400 mcg tablet Take 1 tablet by mouth in the morning. Active multivit-minerals/FA/lycopen e (ONE-A-DAY MEN'S ORAL) (15 sources) multivit-mineral s/FA/lycopene (ONE-A-DAY MEN'S ORAL) Take by mouth once daily. Active multivit-mineral s/FA/lycopene (ONE-A-DAY MEN'S ORAL) Take by mouth once daily. 0 Active Comment on above: Take by mouth once d aily. omeprazole 40 mg delayed release oral capsule (18 sources) Proton Pump Inhibitor Start: 02-17-2024 take 1 capsule by mouth before mealtime omeprazole (PriLOSEC) [address] capsule Indications: Epigastric abdominal pain Take 1 capsule (40 mg) by mouth in the morning. Take before meals. Do not crush or chew.. 90 capsule 3 02/17/2024 Active Start: 09-10-2023 take 1 capsule by [...] One in am and one at pm Active predniSONE 50 mg oral tablet (2 sources) Start: 09-07-2024 End: 09-13-2024 take 1 tablet by mouth once daily predniSONE (Deltasone) 50 MG tablet Indications: Strain of calf muscle, subsequent encounter Take 1 tablet (50 mg) by mouth Daily for 6 days 6 tablet 09/07/2024 09/13/2024 Active ramipril 1.25 mg oral capsule (19 sources) Angiotensin Converting Enzyme Inhibitor Start: 02-17-2019 ramipril (ALTACE) 1.25 mg capsule 1.25 mg once daily. 0 02/17/2019 Active Comment on above: 1.25 mg once daily. rasagiline 1 mg oral tablet (20 sources) Monoamine Oxidase Inhibitor Start: 05-24-2023 End: 12-26-2023 take 1 tablet by mouth once daily rasagiline (AZILECT) 1 mg tab Take 1 tablet by mouth once daily. 90 tablet 3 12/26/2023 Active Start: 03-06-2023 take 1 tablet by esvin th once daily rasagiline (AZILECT) 1 mg tab Take 1 tablet by mouth once daily. 90 tablet 3 03/06/2023 Active Start: 01-15-2020 End: 09-10-2022 take 1 tablet by mouth once daily rasagiline (AZILECT) 1 mg tab Take 1 tablet by mouth once daily. 90 tablet 1 09/10/2022 Active take 2 tablets by mo uth in the morning rasagiline (Azilect) 0.5 MG tablet Take 1 mg by mouth in the morning. Active Comment on above: Take 1 tablet by esvin th once daily. simvastatin 40 mg oral tablet (20 sources) HMG-CoA Reductase Inhibitor Start: take 1 tablet by mouth at bedtime simvastatin (Zocor) 40 MG tablet Indications: Dyslipidemia (CMS/HCC) Take 1 tablet (40 mg) by mouth at bedtime 90 tablet 3 02/17/2024 Active Comment on above: 40 mg daily at bedti me. vitamin e 268 mg oral capsule (19 sources) take 1 capsule by mouth once daily Vitamin E, dl, acetate, (VITAMIN E) 400 unit capsule Take 400 Units by mouth once daily. Active take 2 capsules by mouth in the morning vitamin E 200 units capsule Take 2 capsules (400 Units total) by mouth in the morning. Active take 1 capsule by mouth in the m orning vitamin E 180 MG (400 UNIT) capsule Take 180 mg by mouth in the morning. 0 Active Comment on above: Take 400 Units by mo uth once daily. Problems Active Problems Problem Classification Problem Date Documented Date Episodic/Chronic Cataract (8 sources) Age-related nuclear cataract, right eye; Translations: [Age-related nuclear cataract, left eye] Onset: 08-30-2022 Chronic Diabetes mellitus with complications (20 sources) Type 2 diabetes mellitus with hyperglycemia; Translations: [Type 2 diabetes mellitus] Onset: 11-26-2022 Chronic Diabetes mellitus without complication (1 source) Type 2 diabetes mellitus without complications; Translations: [TYPE 2 DM WITHOUT COMPLICATIONS] Onset: 08-31-2022 Chronic Disorders of lipid metabolism (16 sources) Hyperlipidemia, unspecified; Translations: [Pure hypercholesterolemia, unspecified] Onset: 08-31-2022 09-10-2023 Chronic Essential hypertension (17 sources) Essential (primary) hypertension; Translations: [Benign essential hypertension] Onset: 11-29-2022 09-10-2023 Chronic Immunity disorders (2 sources) Secondary immune deficiency disorder; Translations: [Immunodeficiency due to conditions classified elsewhere (CMS/[facility])] 06-01-2024 Chronic Mycoses (2 sources) Onychomycosis due to dermatophyte ; Translations: [Tinea unguium] 07-07-2024 Episodic Osteoarthritis (15 sources) Unspecified osteoarthritis, unspecified site; Translations: [Degenerative joint disease involving multiple joints] Onset: 08-31-2022 09-10-2023 Chronic Other acquired deformities (1 source) Other forms of scoliosis, lumbar region; Translations: [OTHER FORMS SCOLIOSIS LUMBAR REGION] Onset: 05-18-2022 Chronic Other aftercare (1 source) Other terminal block assembler (current) drug therapy; Translations: [OTH PRISON CURRENT DRUG THERAPY] Onset: 12-15-2022 Episodic Other aftercare (1 source) [facility] (current) use of aspirin; Translations: [PRISON CURRENT USE OF ASPIRIN] Onset: 12-15-2022 Episodic Other aftercare (1 source) [facility] (current) use of oral hypoglycemic drugs; Translations: [SENIOR ACCOUNTING ANALYST USE ORAL HYPOGLYCEMIC DX] Onset: 12-15-2022 Episodic Other connective tissue disease (4 sources) Pain in toe; Translations: [Pain in right toe(s)] 07-07-2024 Episodic Other nervous system disorders (1 source) Other chronic pain; Translations: [OTHER CHRONIC PAIN] Onset: 05-23-2022 Chronic Other nervous system disorders (2 sources) Dysarthria; Translations: [Dysarthria and anarthria] Episodic Other non-traumatic joint disorders (3 sources) Pain in right shoulder; Translations: [PAIN IN RIGHT SHOULDER] Onset: 12-13-2022 Episodic Other non-traumatic joint disorders (1 source) Pain in right hip; Translations: [PAIN IN RIGHT HIP] Onset: 12-15-2022 Episodic Other screening for suspected conditions (not mental disorders or infectious disease) (1 source) MRI scan abnormal; Translations: [Abnormal findings on diagnostic imaging of other specified body structures] Onset: 05-09-2021 05-09-2021 Chronic Other skin disorders (2 sources) Dystrophia unguium; Translations: [Nail dystrophy] 07-07-2024 Episodic Parkinson`s disease (20 sources) Parkinson's disease; Translations: [Parkinson's disease] Onset: 10-07-2019 Chronic Parkinson`s disease (2 sources) Parkinson`s disease; Translations: [Parkinson's disease without dyskinesia or fluctuating manifestations] Onset: 10-07-2019 Spondylosis; intervertebral disc disorders; other back problems (20 sources) Spondylosis without myelopathy or radiculopathy, lumbar region; Translations: [Other intervertebral disc degeneration, lumbar region] Onset: 06-27-2022 Chronic Sprains and strains (4 sources) Strain of calf muscle; Translations: [Strain of other muscle(s) and tendon(s) at lower leg level, unspecified leg, subsequent encounter] Onset: 09-07-2024 09-07-2024 Episodic Superficial injury; contusion (3 sources) Contusion of right upper arm, initial encounter; Translations: [Abrasion of right forearm, initial encounter] Onset: 06-30-2022 Episodic Unclassified (16 sources) Symptomatic parkinsonism; Translations: [Parkinson disease, symptomatic] Onset: 09-10-2023 09-10-2023 Chronic Unclassified (4 sources) LOW BACK PAIN, UNSPECIFIED; Translations: [LOW BACK PAIN, UNSPECIFIED] Onset: 05-18-2022 Unclassified (1 source) CONTACT W/AND (SUSP) EXPOS COVID-19; Translations: [CONTACT W/AND (SUSP) EXPOS COVID-19] Onset: 05-23-2022 Past or Other Problems Problem Classification Problem Date Documented Da te Episodic/Chronic Abdominal pain (15 sources) Epigastric pain; Translations: [Epigastric pain] Onset: 09-10-2023 09-10-2023 Episodic Diseases of mouth; excluding dental (14 sources) Excessive salivation; Translations: [Disturbances of salivary secretion] Onset: 12-05-2022 Episodic E Codes: Fall (12 sources) Unspecified fall, initial encounter; Translations: [Fall] Onset: 12-15-2022 12-11-2023 Episodic Genitourinary symptoms and ill-defined conditions (17 sources) Lefty hematuria; Translations: [Gross hematuria] Onset: 12-21-2020 09-10-2023 Episodic Melanomas of skin (1 source) Personal history of malignant melanoma of skin; Translations: [PERSONAL HX MALIGNANT MELANOMA SKIN] Onset: 08-31-2022 Episodic Other aftercare (10 sources) Long-term current use of drug therapy; Translations: [Other custodial (current) drug therapy] Onset: 12-02-2023 12-02-2023 Episodic Other aftercare (1 source) Patient encounter status; Translations: [Other custodial (current) drug therapy] Onset: 12-02-2023 12-02-2023 Episodic Other diseases of bladder and urethra (1 source) Unspecified bulbous urethral stricture, male; Translations: [Urethral stricture, unspecified] Onset: 03-06-2021 05-25-2024 Episodic Other fractures (11 sources) Closed fracture of sternum; Translations: [Fracture of body of sternum, subsequent encounter for fracture with routine healing] Onset: 02-04-2024 03-05-2024 Episodic Other nervous system disorders (11 sources) Abnormal gait; Translations: [Unsteadiness on feet] Onset: 03-05-2024 03-05-2024 Episodic Other screening for suspected conditions (not mental disorders or infectious disease) (18 sources) Raised prostate specific antigen; Translations: [Elevated prostate specific antigen [PSA]] Onset: 12-21-2020 09-10-2023 Episodic Other upper respiratory disease (11 sources) Hypophonia; Translations: [Other voice and resonance disorders] Onset: 12-05-2022 Episodic Other upper respiratory disease (1 source) Other voice and resonance disorders; Translations: [Hypophonia] Onset: 12-05-2022 Episodic Other upper respiratory disease (5 sources) Hypokinetic parkinsonian dysphonia; 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)] Onset: 10-07-2019 06-18-2024 Episodic Residual codes; unclassified (15 sources) H/O: steroid therapy; Translations: [Personal history of systemic steroid therapy] Onset: 10-07-2019 10-07-2019 Episodic Spondylosis; intervertebral disc disorders; other back problems (11 sources) Chronic low back pain; Translations: [Chronic midline low back pain without sciatica] Onset: 12-11-2023 12-11-2023 Episodic Unclassified (1 source) LOW BACK PAIN, UNSPECIFIED; Translations: [LOW BACK PAIN, UNSPECIFIED] Onset: 05-15-2022 Results Test Name Value Interpretation Reference Range Facility Provider Orders 07-15-2024 Provider Orders [id number] [facility] 07-14-2024 [facility] Telephone (NRESAV) HERRERA WETZEL ([id number]) 1945 M Date Time Provider Department 07/14/24 DONALD ALBERTS During your visit today, we recorded the following information about you: Kathleen Flanagan LPN 07/14/2024 3:15 PM Addendum 07/14/2024 Debora MIR received from [facility] [employer]. Dr. Alberts reviewed and signed. POC securely faxed with confirmation of receipt received. Sent for scanning. Kathleen Flanagan LPN July 14, 2024 1:25 PM Allergies As of Date: 07/14/2024 (No Known Allergies) Date Reviewed: 06/18/2024 Reviewed by: Kathleen Flanagan LPN - Fully Assessed Prescriptions as of 07/14/2024 - empagliflozin (JARDIANCE) 25 mg tablet Take 1 tablet by mouth daily with breakfast. - omeprazole (PRILOSEC) 40 mg capsule Take 40 mg by mouth two times a day. One in am and one at pm - atropine 1 % ophthalmic solution Use 1-2 drops daily as need for drooling - rasagiline (AZILECT) 1 mg tab Take 1 tablet by mouth once daily. - carbidopa-levodopa (SINEMET) 25-100 mg per tablet Take 2 tablets by mouth four times daily. [Every 3-hours] - glipiZIDE (GLUCOTROL XL) 5 mg 24 hr tablet Take 5 mg by mouth two times a day. - ONETOUCH ULTRA BLUE TEST STRIP test strip once daily. - ONETOUCH ULTRASOFT LANCETS lancets once daily. - meloxicam (MOBIC) 7.5 mg tablet Take 7.5 mg by mouth once daily. - metFORMIN ER (GLUCOPHAGE XR) 500 mg 24 hr tablet 500 mg once daily. - metoprolol succinate ER (TOPROL XL) 50 mg 24 hr tablet 50 mg once daily. 1/2 tablet daily - ramipril (ALTACE) 1.25 mg capsule 1.25 [...] once daily. 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 Sialorrhea [K11.7] 12/05/2022 Hypophonia [R49.8] 12/05/2022 Encounter Status:Closed by KATHLEEN FLANAGAN on 07/14/24 [facility] Coding Summaryon 06-30-2024 Coding Summary HTMLBase 64 EjtaopheOMc2jBf+PGhl YWQ+SF9UBUUmD16grWOq oL7aL6MOWEaJVrfwWDFZ KMfEKcKkriArFG4atQMn ZXJu IC8+IO2eEFOzSdawuGOw p3T3kVN4E72mbe3xOAwb zXC4CHSjIfRjcpxlv3ws nWs8BEdnAranZvQv TBKikK69YFS0dP95Di17 zABcmPEcb1fqsKa7RwKy CXVqPYD9iKdbOKqnk8Gk VSNyR53ikYDqo3M5 IGNvbGxhcHNlOyBlbXB0 zF1wFLkgyrgdf5fnffwa Sxt1yh99tRFav4Y8tLB6 J9UkrcV9FSMdiMMu GazzoXYRoR3pvqten0bf cxxbAxYyXXWbXNq4NGc2 HOJvnNohHmXhMD54EOU8 ESMploAsE5MfXRGo sRokCrV9i2O0Tb1ZI4EF VghwT2OFBABRNGpeoWX+ WV18hk95C6SaGcfsOaw5 BNBhSWX3bPG5fR3d ARBoRJbnw9W8hBD0I7Iz dfVwqq5nk7ovRKCfQBkn X55mePVpr9W0IHVqsTS8 GLOnlLvyAnSuyY68 Oyc+YONgrZqkr5WeAdqg w2lwx0hmeCa5CiytSMDx yrGadQotGYE1x3DlLk4a DNMsyAO0lTN9sS7d AlWkIbN4MTsqL457EdXp tHJkFtxuG78sS0CovEJ+ ZOUnScr1CNRpeEkpLH0v Q3CzYJMioyawzQDb sZpyUR5iCNJjnmczCHPt tW5kKMQdX8t8XeVaUqI6 EZkaA9QjEEIceepeYn33 uZ7lFgGwGkC6VVot X2PqneC4QURarZSsWKva KTC2B61yd2R5TDAcVIYg JBB9oSJ0tP6ydVokxiqu bGVmdDsgdmVydGlj TVssGKbcT123WELvtXbm PkNvZGluZyBEYXRlOiAg MTIvMDMvMjAyNDwvdGQ+ RIPdZPZ3kWpiUIKm uSEsBNnvGp9jtYakiPrc HR9vUUGargtsBDSicT3l OYRzfBVtiUzkTK8zOIRu usnof427KdOsSYR5 KENtoHIdC9CklR8nNiJk JESiLUWhG7KqtDTfHKhy X326IWbfVlB9LVJsclFq M3YsLUXbyNnwNqU3 f5Z8Dr7Ho5CftlutM9Wp qQCtEsCrCuovYXe7C4Ib PjwvdHI+SD88PALtQE79 DSb8FSI2zLsdHBmr FWQcK8YzdH8xFlTrYNJg ZGRkOyc+PHRhYmxlIHdp ZHRoPScxMDAlJyBzdHls BD3uTg7hNRBmMQOi zYsymATuBsNoh8nsZHQe MSilLF8azFsmN5VzdCE1 JBRbp8f7Xy86M63bW4Ay dXA+ORXqbEZ4oGR6 cH4sLcErSkL7FZfdU144 UlCzwGAyFyuyp1awm0wo uWz4XqV7FLQrthZveKni QFC1x1GbPm58E74d IHdpZHRoPSIxNSUiIHZh fMfkrw5ogX8lQk8+PGNv iMM8qDQ9jS5yEvPwQhZ6 QAixC276AyMyxUFz Xectu8exu0ihmWw6UrCv GZKalqTxsPidHUU3l3Lr Re24Q1XqzDdfi6BlDgj7 yz17dNRyc9V2zQW7 P5TkUPXpufakrFFxpQcl AV9yHVPuzhsdEUYboV3s LEMuH7w0LgSxKkJ1UHnn F6TxjzR7ERNpbOAn WXQyyCMPdP3npetrl9jp wqoyWsHdSJZkICs2JIq6 RXAlcQakAcDrKPS6QoS3 BSI1zAQflI5ofMxb kmbfdS1dNsl+FHK5uNDu aOTCFO0sVtynxNT+PHRk QZY7fVbwPTcrIBDbhR2a BYQyM8j5ByMhQuL4 PPkpC9TxjgW8RAQjhNTo KLGrjEWOmI6yeodin1pv llllHcElOFRwVKi7VLv5 LWFsaWduOiBsZWZ0 SwJ2NOY9mXRpzQ7jmEof vwpamK8aEez+QmlydGgg NSO0GBy7C6MuVyf6ILNl pXgiRF2heLOaTQhc Cp2mdVxxtTkzVT7bAAMb akpto093LfSdq6hvMUUe xTMwYRlkIPI8U30ng1V7 OTTkTGTaUVJ9tEE5 kY5yxXubrasgeAZxoTmj jsAlgHdwYCdgVXfjB456 GLAokHtwEuSySHf4C8Yd Ran7OOEioYmzDX6s qILyQIwsPk2jrYoskYdp YN5iLROxivudm187GoVx e4lwNVJbiAMoSEfsVHD7 D36ve1P8UIBkXIVx ODQ1dQZ3dS5urXxuvhli bGVmdDsgdmVydGljYWwt SOnnS041EHUhnLkiUeDz eKx0V0FpTmq7JYGx vTciXK3vuKDyDNbsBe3o mUtxtMnyPF7gBYDbcdvs d708LpVny8dhDSXanEUs OOqkESN9O71hi4F8 MNYiKVPwKIO4lSG8jI4e bGlnbjogbGVmdDsgdmVy kXixVPsxWJyhV402AVBd cDsnPlBhdGllbnQg IQcyEPr5C1LaAjmnsEU+ TW35OQEtVY01yNFpjVMl p1efiTp4SwAoPYQcNFH3 lAooKTlfe3NuZIZi Q28vhMGyj3H4LWFkrXfn qAHqWtBfxFI4yK8cUTtn ngcup9shfdmwBfkft8yf yb39oD53N74wEBoj ZHRoPSIzMCUiIHZhbGln di5ufJ1iDz3+PGNvbCB3 zNQ8aC3mBXIwDqV1DCzv Z028CeZmnLReAbor y5ueg5ujyWx2UoM7XBUo clOqlFilEZY3w2UjQe55 A38vAJapRASqWGBzTIHd PFSntBmnlw8omN2v Ii8+ACFriAK7hNQ1hC3g HiIkUzY0HLhkW570AiIt lKObQabeH43uT7IwmFO+ TBDjDtt2MSQhlXyl MT2nmOTwUSajTw4vRBN1 ErRbDgTbCGfjN2TwGQUm jfbldhvvrOS9ABMfAKSr xJ38Kd8boIkiGKGy bWFCcZ1heotaj2azjbbh RmRiIMPaWBi8ICw5UUGh hDzaBbVwJCC2CcB8LFJ5 uSYccY8euBmfdoet jK7kB3VyBOVfyfryVz14 kF8qDnWtUrX9IUmxWjy+ BIRYWEDIAOsrO6GMUHIQ UkJBTjwvdGQ+PHRk RHO1wTjkDBezPZZueF1i CGXrS2a1BzPmNkP6NNdf A1RbKYWuvoehHa96pO0z XnXuVpV1SEgqK8Tf zlO1VKKifRQjAQyvKRN0 X98hb0T3CJLtSAPkSZL2 dZP1jS0ptPdxedjfjUHy dDsgdmVydGljYWwt IKaqF124ECXtxBnwNaIi JhAkMlR0LRi8H9RsVzg9 HKBmgDmfSA6chXZyYSrp Ss8xlDpnaTyaDU2x GCIixusqKGXkzA7aTFHu nIJkvNolNG3pBBJelxuo a400HhXbGVN1UOAxdAXj K5NgkC5yIpOkRAIf QFHkG0GhnLHeSQocW766 IArqDoN2ZWUeqkDpM0Fb EACkbCgqRrB2k8B7Zh18 NyBZZWFyczwvdGQ+ YNGiRET8lErkRKleJJZk cV2jYLTmH8h1AtXhTtP0 YAgvK1AhTHGmjzubTp09 rC0fYpHeAmP8EPzo E3TenqN4WHWzoCHrEOqj BIX0D78cy3H8FZUoCWUg FUO2gKI0oN4htTvpkfcp bGVmdDsgdmVydGlj ZTrfDZrxH689QNFpbGxs Ge7KALL2S4HtQlf4JTXs gBqkSY0lhVSwNMwjOe1t cEhpgOteFR5aITHi mblvOOHnjP0lUHYmzFUj iQeuFN2dJTZrhgqkp315 OhMoTPY1OJDvePFsV1Mc sX6qIjToVTUwLZAe O8IdfSKeLZzoP936JFte MsH0ALPttpEmB9SwPRPc xIavUmQ6u0M6Vo4NXXT1 erQxknxxB4L1rQP9 aWVudDwvdGQ+YS88mx75 X5DvShkaXml7OFFpKSK7 oBS0wW0dXAQnUShxv8D2 tWF0F2PgxbByce1r r9geITOcGNcuJ16ueABj k0Q1LJSnyUP3JVHnzAlv PtZaxE06Qce+PGNvbGdy g1UgMiaig9fxh7qa sTd9FjUbRWClywQlySsl MVH1z5WdFn99N87bXKtt ZHRoPSIzMCUiIHZhbGln yl8llJ7yDr5+PGNv lRE6dLT1tB6vDiKrYyQ4 HDhkV256LbGzoYNzVkor a9xqr2vruSp0ZiTlAJJt egVjtGvaBEU5k1Ux Lz73T6UazGqjk3UcTee2 xr90yGNzl0Y3lVW3O1Ob PNSjdwoooRWdzHubDY1p PPNmuvkuXKChfR9z FUElL3y4DzOkDqE2PGuc H8JnpyE0FDZuxGPcAAXu fVRWdB7niofxn9ftsibq XvEfYYCiATs7AMn0 CDEoaCffQjYiNOK2RpX2 ZZX7xFLmaT3jrIftxlry mS1tSon+BZz6a4yobXIc YJ8ldOW7BD66FI95 vVNxu2Z4rDP0O1IqNHMb mkxrogwcgML2BIRcLQHn rO87Zo7ifTfyNr9vOZTr ORV1SVVwqKQcB8Bl bF4yVmDzQFFcSMIuF8Ax fXLeQYrbY426FExrUyM7 YLVozwFrP1XtDOGhmGrh XyW7h2X2Md1NQJ13 NT64QS75iVGlr3O3xNN3 N9UeVUCefujdgacslMV9 KIHuZGBvaF87Oo0ukSfl Mj5xNEMwSOP6ISQq lUArR3EslC2wJlPcIXSb FCAdO1RyxHMlEMwyZ246 UVysWsX3AJMblfCdN5Dp WBSmfMovTmV2j6I1 Gw2QYm13FX76GZ08lVJp l4P0tUP4J1OlPNRfinoe oyxzfQY2MBStZPGtuK13 Ad8ygWejRs5fANAg TXD5HSUgmVYbB8MfxK4y ZoRtPXIiWHOvF7JfuYXm VKdxN956PPwnMzH6OSTk lqRiC5XjIHWsmFqd EyM3c2C3Lj9OQTrtklt5 F5AoGeytzKP+IZ45MTLn GK79lPDrqXWzh5mvxXk4 GcKcGMFrTIY6qXih PSd (more content not included)... [facility] Provider Orderson 06-22-2024 Provider Orders [id number] #1.00OTGTIFF [facility] 06-19-2024 [facility] Telephone (NRESAV) HERRERA WETZEL ([id number]) 1945 Date Time Provider Department 06/19/24 DONALD ALBERTS NRESAV During your visit today, we recorded the following information about you: Kathleen Flanagan LPN 06/19/2024 9:45 AM Signed 06/19/2024 Order sent via secured fax to [employer] at with confirmation of receipt received. Order also sent for scanning. Kathleen Flanagan LPN June 19, 2024 9:45 AM Allergies As of Date: 06/19/2024 (No Known Allergies) Date Reviewed: 06/18/2024 Reviewed by: Kathleen Flanagan LPN - Fully Assessed Prescriptions as of 06/19/2024 - empagliflozin (JARDIANCE) 25 mg tablet Take 1 tablet by mouth daily with breakfast. - omeprazole (PRILOSEC) 40 mg capsule Take 40 mg by mouth two times a day. One in am and one at pm - atropine 1 % ophthalmic solution Use 1-2 drops daily as need for drooling - rasagiline (AZILECT) 1 mg tab Take 1 tablet by mouth once daily. - carbidopa-levodopa (SINEMET) 25-100 mg per tablet Take 2 tablets by mouth four times daily. [Every 3-hours] - glipiZIDE (GLUCOTROL XL) 5 mg 24 hr tablet Take 5 mg by mouth two times a day. - ONETOUCH ULTRA BLUE TEST STRIP test strip once daily. - ONETOUCH ULTRASOFT LANCETS lancets once daily. - meloxicam (MOBIC) 7.5 mg tablet Take 7.5 mg by mouth once daily. - metFORMIN ER (GLUCOPHAGE XR) 500 mg 24 hr tablet 500 mg once daily. - metoprolol succinate ER (TOPROL XL) 50 mg 24 hr tablet 50 mg once daily. 1/2 tablet daily - ramipril (ALTACE) 1.25 mg capsule 1.25 [...] once daily. 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 Sialorrhea [K11.7] 12/05/2022 Hypophonia [R49.8] 12/05/2022 Encounter Status:Closed by KATHLEEN FLANAGAN on 11/22/24 [facility] CNOVon 06-18-2024 CNOV Office Visit (NRESAV) HERRERA WETZEL ([id number]) 1945 M Date Time Provider Department 06/18/24 9:30 AM DONALD ALBERTS NRESAV During your visit today, we recorded the following information about you: Pulse Blood pressure 93/minute 131/75 Donald Alberts, DO 06/18/2024 10:18 AM Signed [facility] - FOLLOW UP EVALUATION Nathan Bolton MD [address] [facility] [id number] Dear Nathan Bolton MD: I had the pleasure of seeing Mr. Wetzel for follow-up today. As you know he is a 78 year old male with a history of PD since . He is seen with his . Subjective Interval History: There have been major falls - broke his sternum and another fall there was concern for a broken hip. He went through aggressive therapy and he had made great gains and has returned to baseline. The patient missed on his PD therapy during that time. No change to the PD regimen. he tried an upright walker and did much better. The drooling is controlled with the atropine drops. PCP is starting him on JARDIANCE 25mg. The patient denies any recent illness or [...] others. The patient denies any new pain. The speech has gotten worse - more issues with being understood. Movement Disorders Medications Schedule - as of the start of the visit: Medications 8A 11A 2P 5P Sinemet 25/100 2 2 2 2 Azilect 1mg 1 0 0 0 Parkinson's Motor Complications Wearing off: yes Questionnaires: In addition, the following areas that may be affected by abnormal involuntary movements were evaluated: Daily activities Difficulties with eatin (none) Difficulties in dressing: Yes (slight) Difficulties with hygiene activities: Yes (slight) Difficulties with handwriting: Yes (moderate) Difficulties with doing hobbies and other activities: Yes (slight) Difficulties turning in bed: Yes (slight) Difficulties getting out of bed, car or chair: Yes (mild) Tremors/Gait/Balance Shaking or tremors: 0 (none) Walking and balance problems: Yes (moderate) see HPI Number of falls in the Last Month: 0 Gait freezing: Yes (moderate) Autonomic/Pain Lightheadeness on standing: Yes (mild) Urinary problems: Yes (slight) Constipation problems: Yes (slight) Pain and other sensations: Yes (slight) Speech/Swallowing Speech problems: Yes (mild) Drooling: Yes (severe) see HPI Chewing and swallowing problems: Yes (slight) Sleep/Fatigue Sleep problems: Yes (slight) Daytime sleepiness: Yes (slight) Fatigue: Yes (slight) Mood/Behavior Depression: PHQ-9 Score: 4 usually representing no significant (0-4) depression. Anxiety: JULIO C-7 Total Score: 2 usually representing no significant (0-4) anxiety. Finally, the following table shows the patient's overall global physical and mental health using the PROMIS scale: PROMIS-10 Flowsheet Row Office Visit from 06/18/2024 in Neurology Office Visit from 12/26/2023 in Neurology Global Physical Health T Score 42.3 44.9 Global Mental Health T Score 50.8 50.8 0-10 Standard Pain Scale 3 3 *PROMIS-10 scoring scale: mean = 50, over 50 is above average, under 50 is below average ALLERGIES No Known Allergies Current Outpatient Medications Medication Sig omeprazole (PRILOSEC) 40 mg capsule Take 40 mg by mouth two times a day. One in am and one at pm atropine 1 % ophthalmic solution Use 1-2 drops daily as need for drooling rasagiline (AZILECT) 1 mg tab Take 1 tablet by mouth once daily. carbidopa-levodopa (SINEMET) 25-100 mg per tablet Take 2 tablets by mouth four times daily. [Every 3-hours] glipiZIDE (GLUCOTROL XL) 5 mg 24 hr tablet Take 5 mg by mouth two times a day. ONETOUCH ULTRA BLUE TEST STRIP test strip once daily. ONETOUCH ULTRASOFT LANCETS lancets once daily. meloxicam (MOBIC) 7.5 mg tablet Take 7.5 mg by mouth once daily. metFORMIN ER (GLUCOPHAGE XR) 500 mg 24 hr tablet 500 mg once daily. ramipril (ALTACE) 1.25 mg capsule 1.25 mg once daily. simvastatin (ZOCOR) 40 mg tablet 40 mg daily at bedtime. aspirin, enteric coated (ASPIRIN, ENTERIC COATED) 81 mg EC tablet Take 81 mg by mouth once daily. Magnesium 250 mg tab Take 250 mg by mouth once daily. multivit-minerals/FA /lycopene (ONE-A-DAY MEN'S ORAL) Take by mouth once daily. empagliflozin (JARDIANCE) 25 mg tablet Take 1 tablet by mouth daily with breakfast. metoprolol succinate ER (TOPROL XL) 50 mg 24 hr tablet 50 mg onc (more content not included)... [facility] Telephone (NRESAV) HERRERA WETZEL ([id number]) 1945 M Date Time Provider Department 06/18/24 DONALD ALBERTS NRESAV During your visit today, we recorded the following information about you: Allergies As of Date: 06/18/2024 (No Known Allergies) Date Reviewed: 06/18/2024 Reviewed by: Kathleen Flanagan LPN - Fully Assessed Prescriptions as of 06/18/2024 - empagliflozin (JARDIANCE) 25 mg tablet Take 1 tablet by mouth daily with breakfast. - omeprazole (PRILOSEC) 40 mg capsule Take 40 mg by mouth two times a day. One in am and one at pm - atropine 1 % ophthalmic solution Use 1-2 drops daily as need for drooling - rasagiline (AZILECT) 1 mg tab Take 1 tablet by mouth once daily. - carbidopa-levodopa (SINEMET) 25-100 mg per tablet Take 2 tablets by mouth four times daily. [Every 3-hours] - glipiZIDE (GLUCOTROL XL) 5 mg 24 hr tablet Take 5 mg by mouth two times a day. - ONETOUCH ULTRA BLUE TEST STRIP test strip once daily. - ONETOUCH ULTRASOFT LANCETS lancets once daily. - meloxicam (MOBIC) 7.5 mg tablet Take 7.5 mg by mouth once daily. - metFORMIN ER (GLUCOPHAGE XR) 500 mg 24 hr tablet 500 mg once daily. - metoprolol succinate ER (TOPROL XL) 50 mg 24 hr tablet 50 mg once daily. 1/2 tablet daily - ramipril (ALTACE) 1.25 mg capsule 1.25 [...] once daily. 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 Sialorrhea [K11.7] 12/05/2022 Hypophonia [R49.8] 12/05/2022 Encounter Status:Closed by KATHLEEN FLANAGAN on 06/18/24 [facility] HEMOGLOBIN A1Con 024 Glucose [Mass/Vol] 229 mg/dL [facility] HbA1c (Bld) [Mass fraction] 9.6 % High 4.5 - 6.2 % [facility] Comment on above: ADA RECOMMENDED LIMI T 4.0 - 6.0 ADA THERAPEUTIC TARGET < 7.0 ACTION SUGGESTED > 7.0 Interpretation and review of laboratory results Abnormal [facility] Prostate specific Ag [Mass/V ol]on 05-18-2024 PROSTATIC SPEC ANT 4.50 ng/mL High 0.00-4.00 [facility] Comment on above: Result Comment: The method used for this test is Rhona Chago DXI chemiluminescent immunoassay. Values obtained by different assay methods cannot be used interchangeably. Performed By: #### 2 [id number] #### [facility] ([id number]) [address], [address] [place] [address] CNOVon 12-26-2023 CNOV Office Visit (NRESAV) ROHITH,CARL Jacek ([id number]) 1945 M Date Time Provider Department 12/26/23 1:00 PM DONALD ALBERTS NRESAV During your visit today, we recorded the following information about you: Pulse Blood pressure 74/minute 109/70 Donald Alberts DO 12/26/2023 1:43 PM Signed [facility] - FOLLOW UP EVALUATION Donald Alberts [address] [place] [address] Nathan Bolton MD [address] [address] Herrera Read Rohith is a 78 year old male with a history of PD. He is seen with his . Interval History Since Last Visit: The patient is having more issues with falling. 4(four) falls. Going to PT and DtD. Better with U-STEP Walking Stabilizer Walker. Wearing-off causes lots of trouble with his walking. More festinating. More ltdmuuhg-el-xstg (FOG). The patient denies any recent illness [...] Daytime sleepiness: Yes (mild) Fatigue: Yes (slight) Mood/Behavior/Cognit ion Depression: PQH-9 = 3 usually representing no [...] four times daily. [Every 3-hours] No current facility-administere d medications for this visit. Objective: Vital Signs: BP 109/70 (BP Site: Left Arm, BP Position: Sitting, BP Cuff Size: Small Adult) P (more content not included)... Normal [facility] CNOVon 06-14-2023 CNOV Office Visit (NRESFV) HERRERA WETZEL ([id number]) 1945 M Date Time Provider Department 06/14/23 3:00 PM DONALD ALBERTS NRESFV During your visit today, we recorded the following information about you: Pulse Blood pressure Weight Height 72/minute 118/61 76.1 kg 1.778 m Donald Alberts, DO 06/14/2023 3:34 PM Signed [facility] - FOLLOW UP EVALUATION Nathan Bolton MD [address] [facility] [address] Herrera Wetzel is a 77 year old male with a history of PD. He is seen with his . Interval History Since Last Visit: The patient had a swallowing test in late november 2022 - no issues other than more focus on swallowing was made to the patient. 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 1 fall in November o/w doing [...] 72 Ht (more content not included)... Normal [facility] 12-05-2022 [facility] Office Visit (NRESFV) ROHITH,HERRERA Read ([id number]) 1945 M Date Time Provider Department 12/05/22 1:30 PM DONLAD ALBERTS NRESFV During your visit today, we recorded the following information about you: Pulse Blood pressure Weight 61/minute 127/72 74.8 kg Donald Alberts DO 12/05/2022 2:18 PM Signed [facility] - FOLLOW UP EVALUATION Donald Alberts [address] [facility] [address] Nathan Bolton MD [address] [address] Herrera Read Rohith is a 77 year old male with a history of parkinsonism. He is seen with family. Interval History Since Last Visit: He is falling. There is more inoklndf-yg-nxvr (FOG) - this is the cause of the falls. He has fallen while he is carrying things. Multitasking is a big issue. There were two falls in the post op period following cataract surgery. FOG seems to be worse in the PM. There is drooling at night. The mucous in the back of the throat is the issue. 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 The Sinemet is not [...] no evid (more content not included)... Normal [facility] CBC AUTO DIFFon 11-26-2022 BASO # 0.0 103/ul Normal 0.0-0.1 [facility] Comment on above: Performed By: #### C BC #### [facility] [address] [address] [address] Joaquín Rodriguez Basophils/100 WBC (Bld) 0.4 % Normal 0.2-2.0 [facility] Comment on above: Performed By: #### C BC #### [facility] [address] [place] [address] Dr. Joaquín Rodriguez EO # 0.1 103/ul Normal 0.0-0.7 [facility] Comment on above: Performed By: #### C BC #### [facility] [address] [place] [address] Dr. Joaquín Rodriguez Eosinophils/100 WBC (Bld) 2.6 % Normal 0.9-7.0 [facility] Comment on above: Performed By: #### C BC #### [facility] [address] [place] [address] Dr. Joaquín Rodriguez Erythrocyte distribution width (RBC) [Ratio] 13.2 % Normal 11.0-15.0 [facility] Comment on above: Performed By: #### C BC #### [facility] [address] [place] [address] Dr. Joaquín Rodriguez Hematocrit (Bld) [Volume fraction] 47.0 % Normal 42.0-54.0 [facility] Comment on above: Performed By: #### C BC #### [facility] [address] [place] [address] Dr. Joaquín Rodriguez Hemoglobin (Bld) [Mass/Vol] 15.9 g/dL Normal 14.0-18.0 [facility] Comment on above: Performed By: #### C BC #### [facility] [address] [place] [address] Dr. Joaquín Rodriguez IG # 0.01 10e3/ul Normal 0.00-0.03 [facility] Comment on above: Performed By: #### C BC #### [facility] [address] [place] [address] Dr. Joaquín Rodriguez IG % 0.2 % Normal 0.0-0.5 [facility] Comment on above: Performed By: #### C BC #### [facility] [address] [place] [address] Dr. Joaquín Rodriguez LYMPH # 1.5 103/ul Normal 1.2-3.8 [facility] Comment on above: Performed By: #### C BC #### [facility] [address] [place] [address] Dr. Joaquín Rodriguez Lymphocytes/100 WBC (Bld) 30.0 % Normal 20.5-60.0 [facility] Comment on above: Performed By: #### C BC #### [facility] [address] [place] [address] Dr. Joaquín Rodriguez MANUAL DIFF REQ NO Normal [facility] Comment on above: Performed By: #### C BC #### [facility] [address] [place] [address] Dr. Joaquín Rodriguez MCH (RBC) [Entitic mass] 30.8 pg Normal 25.9-34.0 [facility] Comment on above: Performed By: #### C BC #### [facility] [address] [place] [address] Dr. Joaquín Rodriguez MCHC (RBC) [Mass/Vol] 33.8 g/dL Normal 29.9-35.2 [facility] Comment on above: Performed By: #### C BC #### [facility] [address] [place] [address] Dr. Joaquín Rodriguez MCV (RBC) [Entitic vol] 90.9 fL Normal 80.0-94.0 [facility] Comment on above: Performed By: #### C BC #### [facility] [address] [place] [address] Dr. Joaquín Rodriguez MONO # 0.4 103/ul Normal 0.3-0.8 [facility] Comment on above: Performed By: #### C BC #### [facility] [address] [place] [address] Dr. Joaquín Rodriguez Monocytes/100 WBC (Bld) 7.5 % Normal 1.7-12.0 [facility] Comment on above: Performed By: #### C BC #### [facility] [address] [place] [address] Dr. Joaquín Rodriguez NEUT # 3.0 103/ul Normal 1.4-6.5 [facility] Comment on above: Performed By: #### C BC #### [facility] [address] [address] [address] Joaquín Rodriguez Neutrophils/100 WBC (Bld) 59.3 % Normal 43.0-75.0 [facility] Comment on above: Performed By: #### C BC #### [facility] [address] [address] [address] Joaquín Rodriguez Platelet mean volume (Bld) [Entitic vol] 11.2 fL Normal 9.5-13.5 [facility] Comment on above: Performed By: #### C BC #### [facility] [address] [address] [address] Joaquín Rodriguez PLT 128 103/ul Critically low 150-450 [facility] Comment on above: Performed By: #### C BC #### [facility] [address] [place] [address] Dr. Joaquín Rodriguez RBC 5.17 106/ul Normal 4.70-6.10 [facility] Comment on above: Performed By: #### C BC #### [facility] [address] [place] [address] Dr. Joaquín Rodriguez WBC 5.1 103/ul Normal 4.0-11.0 [facility] Comment on above: Performed By: #### C BC #### [facility] [address] [place] [address] Dr. Joaquín Rodriguez GLYCOHEMOGLOBIN A1Con 2022 ADA RECOMMENDATION SEE BELOW Normal [facility] Comment on above: Result Comment: ADA RECOMMENDED LIMIT 4.0 - 6.0 ADA THERAPEUTIC TARGET < 7.0 ACTION SUGGESTED > 7.0 Performed By: #### A 1C #### [facility] [address] [place] [address] Dr. Joaquín Rodriguez Glucose [Mass/Vol] 235 mg/dL Normal [facility] Comment on above: Performed By: #### A 1C #### [facility] [address] [place] [address] Dr. Joaquín Rodriguez HbA1c (Bld) [Mass fraction] 9.8 % Critically high 4.5-6.2 [facility] Comment on above: Performed By: #### A 1C #### [facility] [address] [place], [place] [address] Dr. Joaquín Rodriguez LIPID PROFILEon 11-26-2022 CHOL-HDL RATIO NORM SEE BELOW Normal [facility] Comment on above: Result Comment: 3.3 - 4.4 LOW RISK 4.4 - 7.1 AVERAGE RISK 7.1 - 11.0 MODERATE RISK >11.0 HIGH RISK Performed By: #### L IVTEN LIPID, BMP ####[facility] [address] [place], [place] [address]Jb. Joaquín Rodriguez Cholesterol [Mass/Vol] 145 mg/dL Normal <=200 [facility] Comment on above: Performed By: #### L IVTEN LIPID, BMP ####[facility] [address] [place], [place] [address]Ev. Joaquín Rodriguez Cholesterol in HDL [Mass/Vol] 39 mg/dL Critically low 40-60 [facility] Comment on above: Performed By: #### L IVTEN, LIPID, BMP ####[facility] [address] [id number][address] Joaquín Rodriguez Cholesterol in LDL [Mass/Vol] 70.8 mg/dL Normal [facility] Comment on above: Performed By: #### L IVTEN LIPID, BMP ####[facility] [address] [place], [place] [address]Gk. Joaquín Rodriguez Cholesterol.total/Chol esterol in HDL [Mass ratio] 3.7 {ratio} Normal [facility] Comment on above: Performed By: #### L IVER, LIPID, BMP ####[facility] [address] [id number]. Joaquín Rodriguez HDL NORMAL > or = 60 mg/dl - LOW CARDIOVASCULAR RISK <40 mg/dl - HIGH CARDIOVASCULAR RISK Normal [facility] Comment on above: Performed By: #### L IVER, LIPID, BMP ####[facility] [address] [id number]. Joaquín Rodriguez LDL CALC NORMAL SEE BELOW Normal [facility] Comment on above: Result Comment: <100 mg/dl OPTIMAL 100 - 129 mg/dl NEAR OR ABOVE OPTIMAL 130 - 159 mg/dl BORDERLINE HIGH 160 - 189 mg/dl HIGH >190 mg/dl VERY HIGH Performed By: #### Kayla MOURA LIPID, BMP ####[facility] [address] [address]Dr[address] Joaquín Rodriguez Triglyceride [Mass/Vol] 176 mg/dL Critically high <=150 [facility] Comment on above: Performed By: #### Kayla MOURA LIPID, BMP ####[facility] [address] [address]Dr[address] Joaquín Rodriguez VLDL CALC 35.2 mg/dL Normal [facility] Comment on above: Performed By: #### MAURICIO LIGHT, BMP ####[facility] [address] [address]Dr. Joaquín Rodriguez LIVER PROFILEon 11-26-2022 Albumin [Mass/Vol] 3.9 g/dL Normal 3.4-5.0 [facility] Comment on above: Performed By: #### Kayla MOURA LIPID, BMP ####[facility] [address] [address]Dr. Joaquín Rodriguez Albumin/Globulin [Mass ratio] 1.0 {ratio} Normal [facility] Comment on above: Performed By: #### Kayla MOURA LIPID, BMP ####[facility] [address] [address]Dr. Joaquín Rodriguez ALP [Catalytic activity/Vol] 91 U/L Normal 46-116 [facility] Comment on above: Performed By: #### L ZENY LIPID, BMP ####[facility] [address] [address]Dr. Joaquín Rodriguez ALT [Catalytic activity/Vol] 15 U/L Critically low 16-63 [facility] Comment on above: Performed By: #### L ZENY LIPID, BMP ####[facility] [address] [address]Dr. Joaquín Rodriguez AST [Catalytic activity/Vol] 29 U/L Normal 15-37 [facility] Comment on above: Performed By: #### L IVTEN LIPID, BMP ####[facility] [address] [address]Dr. Joaquín Rodriguez BILI, CONJUGATED 0.2 mg/dL Normal 0.0-0.2 [facility] Comment on above: Performed By: #### L IVER, LIPID, BMP ####[facility] [address] [address]Dr. Joaquín Rodriguez Bilirubin [Mass/Vol] 0.7 mg/dL Normal 0.2-1.0 [facility] Comment on above: Performed By: #### L IVER, LIPID, BMP ####[facility] [address] [address]Dr. Joaquín Rodriguez Globulin (S) [Mass/Vol] 3.8 g/dL Normal [facility] Comment on above: Performed By: #### L IVER, LIPID, BMP ####[facility] [address] [address]Dr. Joaquín Rodriguez Protein [Mass/Vol] 7.7 g/dL Normal 6.4-8.2 [facility] Comment on above: Performed By: #### L IVER, LIPID, BMP ####[facility] [address] [address]Dr. Joaquín Rodriguez MICROALBUMIN, RAND URon mALB 3.5 mg/L Normal <=30.0 [facility] Comment on above: Performed By: #### M ALBR #### [facility] [address] [address] [address] Joaquín Rodriguez PROF CHEM 8 (BAS METB)on Anion gap [Moles/Vol] 10.8 mmol/L Normal [facility] Comment on above: Performed By: #### L IVER, LIPID, BMP ####[facility] [address] [place] [address]Dr. Joaquín Rodriguez Calcium [Mass/Vol] 9.1 mg/dL Normal 8.5-10.1 [facility] Comment on above: Performed By: #### L IVER, LIPID, BMP ####[facility] [address] [place] [id number]. Joaquín Rodriguez Chloride [Moles/Vol] 103 mmol/L Normal 98-107 [facility] Comment on above: Performed By: #### L IVER, LIPID, BMP ####[facility] [address] [place] [id number]. Joaquín Rodriguez CO2 [Moles/Vol] 29.7 mmol/L Normal 21.0-32.0 [facility] Comment on above: Performed By: #### L IVER, LIPID, BMP ####[facility] [address] [place] [address]Dr. Joaquín Rodriguez Creatinine [Mass/Vol] 0.97 mg/dL Normal 0.70-1.30 [facility] Comment on above: Performed By: #### L IVER, LIPID, BMP ####[facility] [address] [place] [address]Dr. Joaquín Rodriguez EGFR-AF LAO >60 Normal >=60 [facility] Comment on above: Performed By: #### L IVER, LIPID, BMP ####[facility] [address] [place] [address]Dr. Joaquín Rodriguez EGFR-NON AF LAO >60 Normal >=60 [facility] Comment on above: Performed By: #### L IVER, LIPID, BMP ####[facility] [address] [place] [address]Dr. Joaquín Rodriguez Glucose [Mass/Vol] 261 mg/dL Critically high 74-106 [facility] Comment on above: Performed By: #### L IVER, LIPID, BMP ####[facility] [address] [place] [address]Dr. Joaquín Rodriguez Potassium [Moles/Vol] 4.5 mmol/L Normal 3.5-5.1 [facility] Comment on above: Performed By: #### L IVER, LIPID, BMP ####[facility] [address] [place] [address]Dr. Joaquín Rodriguez Sodium [Moles/Vol] 139 mmol/L Normal 136-145 [facility] Comment on above: Performed By: #### L IVER, LIPID, BMP ####[facility] [address] [place], [place] [address]Fk. Joaquín Rodriguez Urea nitrogen [Mass/Vol] 16.0 mg/dL Normal 7.0-18.0 [facility] Comment on above: Performed By: #### L IVER, LIPID, BMP ####[facility] [address] [place], [place] [address]Ic. Joaquín Rodriguez Urea nitrogen/Creatinine [Mass ratio] 16.5 mg/mg Normal [facility] Comment on above: Performed By: #### L IVER, LIPID, BMP ####[facility] [address] [place], [place] [address]Tx. Joaquín Rodriguez MR Brain WO contraston 06-20 IMPRESSION: No acute findings. No evidence of acute infarction, intracranial hemorrhage or intracranial mass lesion. 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: [facility] Transcribe Date/Time: Jun 20 2022 1:55P Dictated by : ANTHONY JONES MD This examination was interpreted and the report reviewed and electronically signed by: ANTHONY JONES MD on Jun 20 2022 2:02PM [facility] DIVISION OF RADIOLOGY * * *Final Report* * * DATE OF EXAM: Jun 20 2022 1:26PM [facility] 0294 - MRI BRAIN WO IVCON / [...] orbits and extracranial soft tissues are unremarkable. DIVISION OF RADIOLOGY Provider, [facility] [place] - 06/20/2022 * * *Final Report* * * DATE [...] orbits and extracranial soft tissues are unremarkable. IMPRESSION IMPRESSION: No acute findings. No evidence of acute infarction, intracranial hemorrhage or intracranial mass lesion. 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: [facility] Transcribe Date/Time: Jun 20 2022 1:55P Dictated by : ANTHONY JONES MD This examination was interpreted and the report reviewed and electronically signed by: ANTHONY JONES MD on Jun 20 2022 2:02PM EST [facility] Radiology Study observation (narrative) [facility] MR Brain WO contrastOrdered By: [facility]cf Provider on 06-20-2022 [facility] POINT OF CARE GLUCOSEon 04-29 Glucose [Mass/Vol] 180 mg/dL Critically high 74-106 [facility] Comment on above: Performed By: #### P OCGLUC ####[facility] [address] [place], [place] [address]QwDr. Joaquín Rodriguez Covid-19 PCR (CVDTB)on 04-29 SARS-CoV-2 (COVID-19) RNA JAS+probe Ql (Unsp spec) Not detected Normal NOT DETECTED [facility] Comment on above: Result Comment: This test is not yet approved or cleared by the [place] FDA. When there are no FDA-approved or cleared tests available, and other criteria are met, FDA can make tests available under an emergency access mechanism called an Emergency Use Authorization (EUA). The EUA for this test is supported by the [place] of Health and Human Service's (HHS's) declaration [...] SARS-CoV-2. Performed By: #### C VDTBH #### [facility] [address] [place], [place] [address] Dr. Joaquín Rodriguez GLYCOHEMOGLOBIN A1Con 2021 ADA RECOMMENDATION SEE BELOW Normal The [facility] Comment on above: Result Comment: ADA RECOMMENDED LIMIT 4.0 - 6.0 ADA THERAPEUTIC TARGET < 7.0 ACTION SUGGESTED > 7.0 Performed By: #### A 1C #### [facility] [address] [place] [address] Dr. Joaquín Rodriguez Glucose [Mass/Vol] 212 mg/dL Normal [facility] Comment on above: Performed By: #### A 1C #### [facility] [address] [place] [address] [address] Joaquín Rodriguez HbA1c (Bld) [Mass fraction] 9.0 % Critically high 4.5-6.2 [facility] Comment on above: Performed By: #### A 1C #### [facility] [address] [place] [address] Dr. Joaquín Rodriguez Auth for Release of Medical Recordson 11-21-2020 Auth for Release of Medical Records [id number] #1.00CD:127 Normal [facility] Dermatopathologyon 0 Dermatopathology [facility] Dermatopathology Laboratory [address] [place] [phone] DERMATOPATHOLOGY REPORT Name:HERRERA WETZEL [facility] Rec #. [id number] Location: [facility] Date of Procedure: 03/22/2020 Race: Date Received: [...] None Electronically Signed Out By NADER GALO MD/[facility] By the signature on this report, the individual or group listed as making the Final Interpretation/Diagn osis certifies that they have reviewed this case. Clinical History: Malignant melanoma. Excision. ([place] office) Specimens Submitted As: A: SKIN, RIGHT SUPERIOR LATERAL UPPER BACK Gross Description: Received in formalin is one lozano-brown piece of skin measuring 56 x 21 x 6 mm. The specimen is inked and embedded in toto in four blocks. The tips are in Block 1. mlz/03/23/2020 Normal [facility] Comment on above: Performed By: #### D #### Dermatopathology Dermatopathologyon 0 Dermatopathology Pathologist: NADER GALO MD Date of Procedure: 02/10/2020 Date Received: 02/10/2020 Submitting Physician: SAÚL JHAVERI MD Location: [facility] Copy To/Referring/Attendi ng: HENRIK WHALEN DO FINAL DIAGNOSIS 4 SLIDES, [facility]Y [facility], #[id number] (BX: 01/06/2020) SKIN, RIGHT SUPERIOR LATERAL UPPER [...] melanocytes. The melanocytes stain with antibodies against Geddes-1 and SOX-10. The deep margin focally transects the atypical melanocytes. Electronically Signed Out by NADER GALO M.D. CANCER SUMMARY REPORT A. 4 SLIDES, DERMATOPATHOLOGY LABORATORY [facility], #[id number] (BX: 01/06/2020): Procedure: Biopsy, shave Specimen Laterality: [...] None Electronically Signed Out By NADER GALO MD/[facility] Clinical History: 1CM, NEOPLASM OF UNCERTAIN BEHAVIOR VS. SQUAMOUS CELL CARCINOMA VS. SCAR Specimens Submitted As: A: 4 SLIDES, DERMATOPATHOLOGY LABORATORY [facility], #[id number] (BX: 01/06/2020) Gross Description: Received for consultation from Dermatopathology Laboratory [facility] are four slides labeled [id number] (BX: 01/06/2020) along with the corresponding pathology report. Slide/Block Description 4 SLIDES, [id number]. Keep Slides: N Slides Returned: N Personal Consult: N Normal [facility] Comment on above: Performed By: #### D #### Dermatopathology Vital Signs Date Time Vital Sign Value Performing Clinician Facility 09-07-2024 11:24-0500 Body mass index (BMI) [Ratio] 21.31 kg/m2 Nathan Bolton MD Work Phone: [facility] 09-07-2024 11:24-0500 Body temperature 97 [degF] Nathan Bolton MD Work Phone: [facility] 09-07-2024 11:24-0500 Body weight 69.31 kg Nathan Bolton MD Work Phone: [facility] 09-07-2024 11:24-0500 Diastolic blood pressure 88 mm[Hg] Nathan Bolton MD Work Phone: [facility] 09-07-2024 11:24-0500 Heart rate 94 /min Nathan Bolton MD Work Phone: [facility] 09-07-2024 11:24-0500 SaO2% (BldA) [Mass fraction] 98 % Nathan Bolton MD Work Phone: [facility] 09-07-2024 11:24-0500 Systolic blood pressure 130 mm[Hg] Nathan Bolton MD Work Phone: [facility] 07-07-2024 09:36-0500 Body height 180.3 cm Ayaz Santo DPM Work Phone: [facility] 07-07-2024 09:36-0500 Body mass index (BMI) [Ratio] 22.04 kg/m2 Ayaz Santo DPM Work Phone: [facility] 07-07-2024 09:36-0500 Body weight 71.67 kg Ayaz Santo DPM Work Phone: [facility] 06-18-2024 09:44-0500 Diastolic blood pressure 75 mm[Hg] Donald Alberts DO Work Phone: [facility] 06-18-2024 09:44-0500 Heart rate 93 /min Donald Alberts DO Work Phone: [facility] 06-18-2024 09:44-0500 Systolic blood pressure 131 mm[Hg] Donald Alberts DO Work Phone: [facility] 06-01-2024 10:20-0500 Body height 180.3 cm Nathan Bolton MD Work Phone: [facility] 06-01-2024 10:20-0500 Body mass index (BMI) [Ratio] 22.04 kg/m2 Nathan Bolton MD Work Phone: [facility] 06-01-2024 10:20-0500 Body temperature 97.11 [degF] Nathan Bolton MD Work Phone: [facility] 06-01-2024 10:20-0500 Body weight 71.67 kg Nathan Bolton MD Work Phone: [facility] 06-01-2024 10:20-0500 Diastolic blood pressure 64 mm[Hg] Nathan Bolton MD Work Phone: [facility] 06-01-2024 10:20-0500 Heart rate 94 /min Nathan Bolton MD Work Phone: [facility] 06-01-2024 10:20-0500 Respiratory rate 18 /min Nathan Bolton MD Work Phone: [facility] 06-01-2024 10:20-0500 SaO2% (BldA) [Mass fraction] 97 % Nathan Bolton MD Work Phone: [facility] 06-01-2024 10:20-0500 Systolic blood pressure 128 mm[Hg] Nathan Bolton MD Work Phone: [facility] 05-25-2024 14:06-0400 Body height 180.3 cm Yobany Gonzales MD Work Phone: [facility] 05-25-2024 14:06-0400 Body mass index (BMI) [Ratio] 22.32 kg/m2 Yobany Gonzales MD Work Phone: [facility] 05-25-2024 14:06-0400 Body weight 72.58 kg Yobany Gonzales MD Work Phone: [facility] 05-25-2024 14:06-0400 Diastolic blood pressure 73 mm[Hg] Yobany Gonzales MD Work Phone: [facility] 05-25-2024 14:06-0400 Systolic blood pressure 128 mm[Hg] Yobany Gonzales MD Work Phone: [facility] 03-23-2024 10:07-0400 Body height 180.3 cm Ayaz SEEM Work Phone: [facility] 03-23-2024 10:07-0400 Body mass index (BMI) [Ratio] 22.32 kg/m2 Ayaz SEEM Work Phone: [facility] 03-23-2024 10:07-0400 Body weight 72.58 kg Ayaz Santo DPM Work Phone: [facility] 12-26-2023 13:04-0400 Diastolic blood pressure 70 mm[Hg] Donald Alberts DO Work Phone: [facility] 12-26-2023 13:04-0400 Heart rate 74 /min Donald Alberts DO Work Phone: [facility] 12-26-2023 13:04-0400 Systolic blood pressure 109 mm[Hg] Donald Alberts DO Work Phone: [facility] 09-10-2023 11:47-0500 Body height 180.3 cm Nathan Bolton MD Work Phone: [facility] 09-10-2023 11:47-0500 Body mass index (BMI) [Ratio] 23.01 kg/m2 Nathan Bolton MD Work Phone: [facility] 09-10-2023 11:47-0500 Body temperature 97.5 [degF] Nathan Bolton MD Work Phone: [facility] 09-10-2023 11:47-0500 Body weight 74.84 kg Nathan Bolton MD Work Phone: [facility] 09-10-2023 11:47-0500 Diastolic blood pressure 70 mm[Hg] Nathan Bolton MD Work Phone: [facility] 09-10-2023 11:47-0500 Heart rate 89 /min Nathan Bolton MD Work Phone: [facility] 09-10-2023 11:47-0500 SaO2% (BldA) [Mass fraction] 99 % Nathan Bolton MD Work Phone: [facility] 09-10-2023 11:47-0500 Systolic blood pressure 130 mm[Hg] Nathan Bolton MD Work Phone: [facility] 12-05-2022 13:27-0400 Body weight 74.84 kg Donald Alberts DO Work Phone: [facility] 12-05-2022 13:27-0400 Diastolic blood pressure 72 mm[Hg] Donald Alberts DO Work Phone: [facility] 12-05-2022 13:27-0400 Heart rate 61 /min Donald Alberts DO Work Phone: [facility] 12-05-2022 13:27-0400 SaO2% (BldA) [Mass fraction] 99 % Donald Alberts DO Work Phone: [facility] 12-05-2022 13:27-0400 Systolic blood pressure 127 mm[Hg] Donald Alberts DO Work Phone: [facility] 06-06-2022 16:21-0500 Body height 180.3 cm Donald Alberts DO Work Phone: [facility] 06-06-2022 16:21-0500 Body weight 74.39 kg Donald Alberts DO Work Phone: [facility] 06-06-2022 16:21-0500 Diastolic blood pressure 75 mm[Hg] Donald Alberts DO Work Phone: [facility] 06-06-2022 16:21-0500 Heart rate 69 /min Donald Alberts DO Work Phone: [facility] 06-06-2022 16:21-0500 SaO2% (BldA) [Mass fraction] 100 % Donald Alberts DO Work Phone: [facility] 06-06-2022 16:21-0500 Systolic blood pressure 135 mm[Hg] Donald Alberts DO Work Phone: [facility] Encounters Encounter Date Encounter Type Care Provider Facility Start: 09-07-2024 End: 09-07-2024 Bamboo flowsheet Nathan Bolton MD Work Phone: [facility] Start: 09-07-2024 End: 09-07-2024 Bamboo flowsheet Nathan Bolton MD Work Phone: [facility] Start: 09-07-2024 End: 09-07-2024 Office outpatient visit 15 minutes Nathan Bolton MD Work Phone: [facility] Comment on above: Strain of calf muscl e, subsequent encounter (Primary Dx) Start: 09-07-2024 End: 09-07-2024 ambulatory NATHAN BOLTON Not Available Start: 07-14-2024 End: 07-14-2024 Telephone encounter Donald Chaves Aristeo DO Work Phone: Neurology Start: 07-07-2024 End: 07-07-2024 Bamboo flowsheet Ayaz Santo DPM Work Phone: [facility] Start: 07-07-2024 End: 07-07-2024 Bamboo flowsheet Ayaz Santo DPM Work Phone: [facility] Start: 07-07-2024 End: 07-07-2024 Patient encounter procedure Ayaz Santo DPM Work Phone: [facility] Comment on above: Dermatophytosis of n ail (Primary Dx); Dystrophic nail; Pain around toenail, right foot; Pain around toenail, left foot Start: 07-07-2024 End: 07-07-2024 ambulatory AYAZ SANTO Not Available Start: 06-29-2024 ambulatory NATHAN BOLTON Facility :[facility] Start: 06-19-2024 End: 06-19-2024 Telephone encounter Donald Alberts DO Work Phone: Neurology Start: 06-18-2024 End: 06-18-2024 Telephone encounter Donald Alberts DO Work Phone: Neurology Start: 06-18-2024 End: 06-18-2024 ambulatory DONALD ALBERTS Facility:[facility] Start: 06-18-2024 End: 06-18-2024 Office outpatient visit 15 minutes Donald Alberts DO Work Phone: Neurology Comment on above: Parkinson's disease without dyskinesia or fluctuating manifestations (HCC) (Primary Dx); Hypokinetic Parkinsonian dysphonia (HCC) Start: 06-08-2024 End: 06-08-2024 Clinisync Result Encounter Nathan Bolton MD Work Phone: [facility] External Department Unsolicited Start: 06-08-2024 End: 06-08-2024 Clinisync Result Encounter Nathan Bolton MD Work Phone: [facility] External Department Unsolicited Start: 06-08-2024 End: 06-08-2024 Orders Only Nathan Bolton MD Work Phone: [facility] Comment on above: Type 2 diabetes elena itus with hyperglycemia, without long-term current use of insulin (CMS/HCC) (Primary Dx) Start: 06-01-2024 End: 06-01-2024 Bamboo flowsheet Nathan Bolton MD Work Phone: [facility] Start: 06-01-2024 End: 06-01-2024 Bamboo flowsheet Nathan Bolton MD Work Phone: [facility] Start: 06-01-2024 End: 06-01-2024 Office outpatient visit 25 minutes Nathan Bolton MD Work Phone: [facility] Comment on above: Type 2 diabetes elena itus with hyperglycemia, without long-term current use of insulin ([facility]/HCC) (Primary Dx); Essential hypertension, benign (CMS/[facility]); Degeneration of intervertebral disc of lumbar region with discogenic back pain; Parkinson disease, symptomatic (CMS/[facility]); Immunodeficiency due to conditions classified elsewhere ([facility]) Start: 06-01-2024 End: 06-01-2024 ambulatory NATHAN BOLTON Not Available Start: 05-25-2024 End: 05-25-2024 Office outpatient visit 15 minutes Yobany Gonzales MD Work Phone: [facility] Comment on above: Elevated PSA (Primar y Dx); Hematuria, gross Start: 05-25-2024 End: 05-25-2024 ambulatory [facility] Start: 05-18-2024 End: 05-18-2024 ambulatory [facility] Start: 03-23-2024 End: 03-23-2024 Patient encounter procedure Ayaz Santo DPM Work Phone: [facility] Comment on above: Dermatophytosis of n ail (Primary Dx); Dystrophic nail; Pain around toenail, right foot; Pain around toenail, left foot Start: 03-23-2024 End: 03-23-2024 ambulatory AYAZ SANTO Not Available Start: 03-05-2024 End: 03-05-2024 ambulatory NATHAN BOLTON Not Available Start: 02-04-2024 End: 02-04-2024 ambulatory SHAIKH TALAT Not Available Start: 12-26-2023 End: 12-26-2023 ambulatory DONALD ALBERTS Facility:[facility] Start: 12-26-2023 End: 12-26-2023 Office outpatient visit 15 minutes Donald Alberts DO Work Phone: Neurology Comment on above: Parkinson's disease without dyskinesia or fluctuating manifestations (HCC) (Primary Dx); Sialorrhea; PD (Parkinson's disease) (HCC) Start: 12-11-2023 End: 12-11-2023 ambulatory SHAIKH PRUDENCIOFrancisco Javier Not Available Start: 12-05-2023 End: 12-05-2023 ambulatory AYAZ Alonso IRMA Not Available Start: 12-02-2023 End: 12-02-2023 ambulatory NATHAN BOLTON Not Available Start: 11-03-2023 Refill Donald xavier DO Work Phone: Neurology Comment on above: Refill Request Start: 09-10-2023 Husam flowsheet Nathan Bolton MD Work Phone: [facility] Start: [facility]-10-2023 [facility] Work [facility]: [facility] Start: 09-10-2023 End: 09-10-2023 Office outpatient visit 15 minutes Nathan Bolton MD Work Phone: [facility] Comment on above: Epigastric abdominal pain (Primary Dx) Start: 09-10-2023 End: 09-10-2023 ambulatory NATHAN BOLTON Not Available Start: 06-14-2023 End: 06-14-2023 ambulatory DONALD ALBERTS Facility:[facility] Start: 03-16-2023 ambulatory Donald xavier DO Work Phone: Neurology Comment on above: Botox for excessive saliva for Herrera Wetzel Start: 02-19-2023 Refill Donald xavier DO Work Phone: Neurology Comment on above: Refill Request Start: 12-26-2022 End: 12-26-[address] DOCTOR NICOLE Facility: Start: 12-13-2022 End: 12-13-2022 ambulatory JOANNE TALAVERA . Facility:[facility] Start: 12-05-2022 End: 12-05-2022 ambulatory DONALD ALBERTS Facility:[facility] Start: 12-05-2022 End: 12-05-2022 Patient encounter [...] Refill Donald xavier DO Work Phone: [facility] Comment on above: Refill Request Start: 08-30-2022 End: 08-30-2022 ambulatory SANIYA GARZON Facility:[facility] Start: 06-27-2022 End: 06-28-[address] NIKHIL GUAJARDO . Facility:[facility] Start: 06-22-2022 Telephone encounter Donald gomez DO Work Phone: [facility] Comment on above: Results (MRI NL) Start: 06-20-2022 End: 06-20-2022 Subsequent hospital visit by physician Mri [facility] Amanda (1.5t) Work Phone: Radiology Comment on above: PD (Parkinson's dise ase) (HCC) [G20] Start: 06-06-2022 End: 06-06-2022 Patient encounter procedure Donald Alberts DO Work Phone: Neurology Comment on above: PD (Parkinson's dise ase) (HCC) (Primary Dx); Dysarthria Start: 05-23-2022 Encounter for preprocedural laboratory examination DR NIKHIL GUAJARDO . [facility] Start: 05-22-2022 End: 05-22-[address] NIKHIL GUAJARDO . Facility:[facility] Start: 05-18-2022 End: 05-19-[address] NIKHIL GUAJARDO . Facility:[facility] Start: 05-18-2022 End: 05-19-2022 Encounter for preprocedural laboratory examination DR NIKHIL GUAJARDO . Facility:[facility] Start: 05-15-2022 End: 05-16-[address] NIKHIL GUAJARDO . Facility:[facility] Start: 05-09-2022 End: 05-10-[address] NATHAN BOLTON Facility:[facility] Procedures Date Procedure Procedure Detail Performing Clinician Start: 06-08-2024 MLR HEMOGLOBIN A1C Nathan Bolton MD Work Phone: Start: 05-25-2024 Follow-up visit Follow-up YOBANY GONZALES Start: 06-20-2022 Mri brain brain stem w/o contrast material Donald Alberts DO Work Phone: Plan of Treatment Date Care Activity Detail Author Start: 05-27-2027 DTaP,Tdap and Td Vac cines (2 - Td or Tdap) DTaP,Tdap and Td Vaccines (2 - Td or Tdap) [facility] [employer] [facility] Start: 06-24-2026 Diabetes Screening Diabetes Screenin [facility] Start: 09-30-2025 Glaucoma screening Diabetes: R etinopathy Screening [facility] Start: 06-02-2025 End: 06-02-2025 Patient encounter procedure 06/02/2025 1:15 PM EST Office Visit [facility] [address] [place] [address] [facility] [place] [address] Yobany Gonzales MD [facility] [place] [address] [facility] Start: 05-25-2025 End: 04-25-2026 Prostatic specific antigen, diagnostic Prostatic specific antigen, diagnostic Lab Routine Elevated PSA Expected: 05/25/2025 (Approximate), Expires: 04/25/2026 [facility] Work Phone: Comment on above: Expected: 05/25/2025 (Approximate), Expires: 04/25/2026 Start: 12-17-2024 End: 12-17-2024 Patient encounter procedure 12/17/2024 1:30 PM EDT Office Visit Neurology [address] [place] [address] Donald Alberts, DO [address] [place] [address] Parkinson's disease without dyskinesia or fluctuating manifestations (HCC) [G20.A1] Neurology Comment on above: Parkinson's disease without dyskinesia or fluctuating manifestations (HCC) [G20.A1] Start: 12-03-2024 Urine screening for protein Diabetes: Urine Protein Screening [facility] Start: 11-30-2024 End: 11-30-2024 Patient encounter procedure 11/30/2024 10:30 AM EDT Office Visit [facility] [address] [place] [phone] Nathan Bolton MD [address] [place] [phone] [facility] Start: 10-21-2024 End: 10-21-2024 Patient encounter procedure 10/21/2024 10:30 AM EDT Procedure Visit [facility] [address] [place] [id number] Ayaz Santo, DP [address] [place] [address] [facility] Start: 09-07-2024 End: 09-07-2024 Patient encounter procedure 09/07/2024 11:00 AM EST [facility] Visit [facility] [facility] [address] [place] [id number] Nathan Bolton MD [address] [place] [phone] Arrived [facility] Comment on above: Arrived Start: 07-07-2024 End: 07-07-2024 Patient encounter procedure [facility] Comment on above: Arrived Start: 06-20-2024 DIABETES SCREEN [facility]CREEN [facility] Start: 06-20-2024 Diabetes Screening Diabetes Screenin g [facility] Start: 06-18-2024 End: 06-18-2024 Patient encounter procedure 06/18/2024 9:30 AM EST Office Visit Neurology [address] [place] [address] Donald Alberts, DO [address] [place], [place] [id number] Return in about 6 months (around 06/27/2024). Neurology Comment on above: Return in about 6 mo nths (around 06/27/2024). Start: 06-05-2024 Hemoglobin A1c measurement Maritza betes: Hemoglobin A1C [facility] Start: 06-01-2024 End: 06-01-2025 Hemoglobin A1c/Hemoglobin.total in Blood Hemoglobin A1c Lab Routine Type 2 diabetes mellitus with hyperglycemia, without long-term current use of insulin ([facility]) Expected: 06/01/2024 (Approximate), Expires: 06/01/2025 [facility] Work Phone: Comment on above: Expected: 06/01/2024 (Approximate), Expires: 06/01/2025 Start: 06-01-2024 End: 06-01-2024 Patient encounter procedure [facility] Comment on above: Arrived Start: 05-20-2024 Adult BMI Screening Adult BMI Screen ing [facility] Start: 05-20-2024 Tobacco Screening Tobacco Screening [facility] Start: 03-29-2024 Covid-19 Vaccine ( season) Covid-19 Vaccine ( season) [facility] Start: 03-29-2024 Influenza vaccination Influenza Vacc ine (#1) [facility] Start: 12-05-2023 End: 12-05-2023 Patient encounter procedure 12/05/2023 2:45 PM EDT Procedure Visit [facility] [address] [place] [id number] Ayaz Santo, DP [address] [place], [place] [id number] [facility] Start: 12-02-2023 End: 12-02-2023 Patient encounter procedure 12/02/2023 10:45 AM EDT Office Visit [facility] [address] [place] [phone] Nathan Bolton MD [address] [place] [address] [facility] Start: 09-24-2023 Hemoglobin A1c measurement Maritza betes: Hemoglobin A1C [facility] Start: 09-10-2023 End: 09-10-2024 RF Upper gastrointestinal tract and Small bowel Single view W contrast PO FL upper GI double contrast w KUB Imaging Routine Epigastric abdominal pain Expected: 09/10/2023, Expires: 09/10/2024 [facility] Comment on above: Expected: 09/10/2023 , Expires: 09/10/2024 Start: 09-10-2023 End: 09-10-2024 US Gallbladder US gallbladder Imaging Routine Epigastric abdominal pain Expected: 09/10/2023, Expires: 09/10/2024 [facility] Work Phone: Comment on above: Expected: 09/10/2023 , Expires: 09/10/2024 Start: 09-10-2023 End: 09-10-2023 Patient encounter procedure 09/10/2023 11:45 AM EST Office Visit [facility] [address] [place] [phone] Nathan Bolton MD [address] [place] [phone] Arrived [facility] Comment on above: Arrived Start: 07-29-2023 Advance Directive Discussion Advance Directive Discussion [facility] Start: 07-29-2023 Behavioral Health Screening Behavioral Health Screening [facility] Start: 03-29-2023 Covid-19 Vaccine ( season) Covid-19 Vaccine ( season) [facility] Start: 03-29-2023 Influenza vaccination INFLUENZA (#1) [facility] Start: 08-26-2022 COVID-19 VACCINE (6 - Pfizer series) COVID-19 VACCINE (6 - Pfizer series) [facility] Start: 07-29-2022 ADVANCE DIRECTIVE DISCUSSION ADVANCE DIRECTIVE DISCUSSION [facility] Start: 07-29-2022 DEPRESSION ASSESSMENT DEPRESSION ASS ESSMENT [facility] Start: 07-29-2021 ADVANCE DIRECTIVE DISCUSSION ADVANCE DIRECTIVE DISCUSSION [facility] Start: 07-29-2021 DEPRESSION ASSESSMENT DEPRESSION ASS ESSMENT [facility] Start: 05-28-2017 Urine microalbumin profile DTa P,Tdap,Td Vaccine (1 - Tdap) [facility] Start: 2011 Fall Risk Screening Fall Risk Screen [facility] Start: 2011 PNEUMOCOCCAL: 65+ (1 - PCV) PNEUMOCOCCAL: 65+ (1 - PCV) [facility] Start: 2006 RSV Vaccine (1 - 1-d ose 60+ series) RSV Vaccine (1 - 1-dose 60+ series) [facility] Start: 1996 SHINGRIX VACCINE (1 of 2) FRIAS GRIX VACCINE (1 of 2) [facility] Start: 1991 COLOGUARD (FIT-DNA) COLOGUARD (FIT-D NA) [facility] Start: 1991 Colonoscopy COLONOSCOPY [facility] Start: 1991 COLORECTAL CANCER SCREENING COLORECTAL CANCER SCREENING [facility] Start: [address] COLONOGRAPHY [facility] Start: 1991 FECAL OCCULT BLOOD FECAL OCCULT BLOO D [facility] Start: 1991 SIGMOIDOSCOPY SIGMOIDOSCOPY [facility] Start: 1981 LIPID SCREEN LIPID SCREEN [facility] Start: 1965 Urine microalbumin profile DTAP,TDAP ,TD (1 - Tdap) [facility] Start: 1965 Urine screening for protein Diabetes: Urine Protein Screening [facility] Start: 1964 Anxiety Screening Anxiety Screening [facility] Start: 1964 Depression Screening Depression Scre ening [facility] Start: 1964 HEPATITIS C SCREENING HEPATITIS C [facility] Start: 1964 Hepatitis C screening Hepatitis C [facility] Start: 1958 Depression Screening Depression Scre ening [facility] Start: 1956 Glaucoma screening Diabetes: R etinopathy Screening [facility] Start: 1946 Medicare Annual Well ness (AWV) Medicare Annual Wellness (AWV) [facility] Start: 1946 Medicare Annual Well ness Visit Medicare Annual Wellness Visit [facility] End: 07-06-2023 Mri brain brain stem w/o contrast material MRI BRAIN WO IVCON Radiology Routine PD (Parkinson's disease) (HCC) Dysarthria 1 Occurrences starting 06/06/2022 until 07/06/2023 [facility] Work Phone: Comment on above: 1 Occurrences starti ng 06/06/2022 until 07/06/2023 [facility] Immunizations Immunization Date Immunization Notes Care Provider Fa [facility] 05-13-2023 RSV, recombinant, pr otein subunit RSVpreF, adjuvant reconstitu, 120mcg/0.5mL, PF (Arexvy) Ayaz Santo DPM Work Phone: [facility] 04-22-2023 Influenza, Seasonal, Quadrivalent, Adjuvanted Nathan Bolton MD Work Phone: [facility] 04-22-2023 influenza virus vacc ine, unspecified formulation Ayaz Santo DPM Work Phone: [facility] 04-23-2022 Influenza, High-dose Seasonal, Quadrivalent, Preservative Free Nathan Bolton MD Work Phone: [facility] 04-27-2021 Influenza, Seasonal, Quadrivalent, Adjuvanted Nathan Bolton MD Work Phone: [facility] 05-05-2020 Influenza, Seasonal, Quadrivalent, Adjuvanted Nathan Bolton MD Work Phone: [facility] 05-18-2019 Influenza, injectabl e, Madin [place] Canine Kidney, preservative free, quadrivalent Nathan Bolton MD Work Phone: [facility] 11-20-2018 zoster vaccine recombinant Isabel Bolton MD Work Phone: [facility] 05-13-2018 Seasonal trivalent influenza vaccine, adjuvanted, preservative free Nathan Bolton MD Work Phone: [facility] 02-17-2018 zoster vaccine recombinant Isabel Bolton MD Work Phone: [facility] 09-06-2017 pneumococcal polysaccharide vaccine, 23 valent Nathan Bolton MD Work Phone: [facility] 05-27-2017 tetanus and diphther ia toxoids, adsorbed, preservative free, for adult use (5 Lf of tetanus toxoid and 2 Lf of diphtheria toxoid) Nathan Bolton MD Work Phone: [facility] 04-29-2017 influenza, high dose seasonal, preservative-free Nathan Bolton MD Work Phone: [facility] 05-30-2016 influenza, high dose seasonal, preservative-free Nathan Bolton MD Work Phone: [facility] 05-30-2016 pneumococcal conjuga te vaccine, 13 valent Nathan Bolton MD Work Phone: [facility] 06-08-2015 influenza, high dose seasonal, preservative-free Nathan Bolton MD Work Phone: [facility] Payers Date Payer Category Payer Medicaid [employer] MED[employer]ARE A DVANTAGE [id number] 2020 Medicare [id number] 2020 Medicare HMO [employer] MED[employer]ARE [id number] 1959 Medicare [id number] 1946 Unknown [id number] 2.16.840.1.906540.3.579.2.593 1946 Unknown [id number] 2.16.840.1.154410.3.579.2.593 1946 Unknown [id number] 2.16.840.1.363505.3.579.2.593 1946 Unknown [id number] 2.16.840.1.459467.3.579.2.593 1946 Unknown [id number] 2.16.840.1.056807.3.579.2.593 1946 Unknown [id number] 2.16.840.1.311389.3.579.2.593 1946 Unknown [id number] 2.16.840.1.211091.3.579.2.593 1946 Unknown [id number] 2.16.840.1.116193.3.579.2.593 1946 Unknown [id number] 2.16.840.1.513262.3.579.2.593 1946 Unknown [id number] 2.16.840.1.066005.3.579.2.593 1946 Unknown [id number] 2.16.840.1.508588.3.579.2.593 1946 Unknown [id number] 2.16.840.1.583306.3.579.2.1286 1946 Unknown [id number] 2.16.840.1.471955.3.579.2.1286 1946 Unknown [id number] 2.16.840.1.449156.3.579.2.718 1946 Unknown [id number] 2.16.840.1.123730.3.579.2.1259 1946 Unknown [id number] 2.16.840.1.283379.3.579.2.1259 1946 Unknown [id number] 2.16.840.1.545304.3.579.2.1259 1946 Unknown [id number] 2.16.840.1.174217.3.579.2.1259 1946 Unknown [id number] 2.16.840.1.746829.3.579.2.1259 1946 Unknown [id number] 2.16.840.1.004048.3.579.2.1259 1946 Unknown [id number] 2.16.840.1.891016.3.579.2.1259 1946 Unknown [id number] 2.16.840.1.185082.3.579.2.1259 1946 Unknown [id number] 2.16.840.1.202619.3.579.2.1259 1946 Unknown [id number] 2.16.840.1.034535.3.579.2.1259 Social History Date Type Detail Facility Start: 03-27-2019 End: 02-04-2024 Tobacco smoking status NHIS Never smoked tobacco [facility] Start: 03-27-2019 End: 02-04-2024 Tobacco use and exposure Smokeless tobacco non-user [facility] Start: 10-14-2020 End: 09-07-2024 Alcohol intake Lifetime non-drinker (finding) [facility] Start: 03-27-2019 History SDOH Alcohol Frequency 1 [facility] Start: 1945 Sex Assigned At Male C [facility] Start: 05-27-2022 End: 06-06-2022 Exposure to SARS-CoV-2 (event) Not sure [facility] Start: 12-05-2022 End: 11-28-2023 History of Social function [facility] Start: 12-05-2022 End: 11-28-2023 Tobacco use panel [facility] Adult Depression Screening Assessment 0 [facility] Start: 03-30-2019 Gender identity Identifies as male gender (finding) [facility] How often to you hav e a drink containing alcohol? Never [facility] Within the last year , have you [...] Not at all [facility] (I/We) worried whether (my/our) food would run out before (I/we) got money to buy more. Never true [facility] Start: 1945 Sex Assigned At Not on file [facility] Start: 03-03-2015 Sex Male (finding) [facility] Start: 07-08-2021 Sexual orientation Heterosexual (tammie andrea) [facility] Do you feel stress - tense, restless, nervous, or anxious, or unable to sleep at night because your mind is troubled all the time - these days [OSQ] Only a little [facility] NEGATED: Highlighted rowStart: NINF History of tobacco use Passive smoker [facility] Medical Equipment Procedure Code Equipment Code Equipment Origin al Text Equipment Identifier Dates once daily. [id number], [id number] Start: 12-15-2018 Comment on above: once daily. Clinical Notes 05-15-2022 to 09-07-2024 Nathan Bolton MD - 09/07/2024 12:[address] Bolton MD - 09/07/2024 11:00 AM ESTTelephone Encounter - Kathleen Flanagan LPN - 07/14/2024 1:23 PM Zahida Santo DPM - 07/07/2024 9:30 AM EST Note Date & Type Note Facility 09-07-2024 History of Present illness Narrative Associated Problem(s): Strain of calf muscle, subsequent encounter History and exam shows calf strain. Treat with prednisone. Alternate ice and heat. Resume PT. If no improvement may need imaging. Images from the original note were not included. Subjective Patient ID: Herrera Wetzel is a 79 y.o. male who presents for No chief complaint on file.. ER follow up from 09/03 for right calf pain. In PT and was stepping up onto step when felt a pop behind right knee. Severe pain and hard to stand. To ER and x-ray negative. ER concerned of calf strain and gave RUFINA wrap. No change today. Using compression at night and helps. Ice PRN. Not notice swelling. Pain in back knee and into calf. Very tender with palpation. Pain with walking but not painful at rest. Using OTC PRN. Review of Systems Constitutional: Negative for fatigue. [...] rebound. Musculoskeletal: Left lower leg: No edema. Comments: Right calf. TTP over right calf and into calf. No pain with dorsiflexion Neurological: Mental Status: He is alert. Assessment/Plan Problem List Items Addressed This Visit Strain of calf muscle, subsequent encounter - Primary History and exam shows calf strain. Treat with prednisone. Alternate ice and heat. Resume PT. If no improvement may need imaging. Relevant Medications predniSONE (Deltasone) 50 MG tablet documented in this encounter [facility] 07-14-2024 Telephone encounter Note Summary: ST POC 07/14/2024 S.T. POC received from [facility] [employer]. Dr. Alberts reviewed and signed. POC securely faxed with confirmation of receipt received. Sent for scanning. Kathleen Flanagan LPN July 14, 2024 1:25 PM [facility] 07-14-2024 Miscellaneous Notes Summary: ST POC 07/14/2024 S.T. POC received from [facility] [employer]. Dr. Alberts reviewed and signed. POC securely faxed with confirmation of receipt received. Sent for scanning. Kathleen Flanagan LPN July 14, 2024 1:25 PM documented in this encounter [facility] 07-07-2024 History of Present illness Narrative Images from the original note were not included. Subjective Patient ID: Herrera Wetzel is a 78 y.o. male who presents for Nail care (Herrera Wetzel is a 78 y.o. male who presents for DM Foot Care PCP: Dr. Hoang PRICE 06/01/2024, A1C: 9.2, BS: 167.SS 10.5). HPI Chief complaint: requests care of thickened, deformed and discolored toenails. Problematic/symptomatic primarily involving bilateral great toes. Chronic toenail deformity, multiple years duration. Mildly symptomatic; describing pressure discomfort with shoe gear; also complains of catching and snagging on clothing etc. Denies bleeding or drainage. Attempts at self-care are difficult and ineffective; increasing risk exposure. His spouse is unable to provide effective care. Palliative care measures have provided favorable transient symptom relief. He and his spouse both note some improvement with topical care measures; compliance is good. Risk factors: Type II diabetes. Parkinson's disorder. Medical comorbidities. Polypharmacy. ASA therapy. Mobility and flexibility restraints. Toenail deformity. Digital and/or shoe trauma and related complications. Medications Current Outpatient Medications: acetaminophen (Tylenol 8 Hour) 650 MG ER tablet, Take 650 mg by mouth every 8 (eight) hours if needed for mild pain. Do not crush, chew, or split., Disp: , Rfl: aspirin 81 MG EC tablet, Take 81 mg by mouth in the morning., Disp: , Rfl: carbidopa-levodopa (Parcopa) 25-100 MG disintegrating tablet, Take 2 tablets by mouth in the morning and 2 tablets at noon and 2 tablets in the evening and 2 tablets before bedtime. 1 1/2 tab 4x daily., Disp: , Rfl: empagliflozin (Jardiance) 25 MG, Take 1 tablet (25 mg) by mouth Daily, Disp: 30 tablet, Rfl: 3 glipiZIDE (Glucotrol) 10 MG tablet, Take 1 tablet (10 mg) by mouth in the morning and 1 tablet (10 mg) in the evening. Take before meals., Disp: 180 tablet, Rfl: 3 magnesium 250 MG tablet, Take by mouth., Disp: , Rfl: meloxicam (Mobic) 7.5 MG tablet, Take 1 tablet (7.5 mg) by mouth Daily, Disp: 90 tablet, Rfl: 3 metFORMIN XR (Glucophage-XR) 500 MG 24 hr tablet, Take 1 tablet (500 mg) by mouth in the morning and 1 tablet (500 mg) before bedtime. Do not crush, chew, or split.., Disp: 180 tablet, Rfl: 3 Multiple Vitamin (multivitamin) tablet, Take 1 tablet by mouth in the morning., Disp: , Rfl: omeprazole (PriLOSEC) [address] capsule, Take 1 capsule (40 mg) by mouth in the morning. Take before meals. Do not crush or chew.., Disp: 90 capsule, Rfl: 3 rasagiline (Azilect) 0.5 MG tablet, Take 1 mg by mouth in the morning., Disp: , Rfl: simvastatin (Zocor) 40 MG tablet, Take 1 tablet (40 mg) by mouth at bedtime, Disp: 90 tablet, Rfl: 3 Allergies Patient has no known allergies. Past Surgical History Past Surgical History: Procedure Laterality Date APPENDECTOMY CYST REMOVAL Left 1979 from hand VASECTOMY 1979 Family History Family History Problem Relation Name Age of Onset Cancer Mother Aida wilkersonhart Vision loss Father Elvin Rohith Sr Objective General assessment: Alert and oriented. Pleasant disposition. Ambulatory with walker assist. Accompanied by his spouse, Laurie. Vascular: DP 2/4 bilateral. PT 1/4 bilateral. CFT brisk all digits. Skin temperature: Warm-cool all digits. Unremarkable for ankle edema. Diffuse pigmentation of the lower extremities. Neurologic: tactile and light touch sensation appears grossly intact. 5.07 monofilament: Intact localization all points plantarly. Negative Tinel's along the tarsal canal. Dermatologic: intact. Skin turgor is good. Web space areas are clean, dry, non-inflamed. Unremarkable for eczema or dermatitis. Toenail pathology: Bilateral great toes: DSO/pincer toenail deformity: Toenail dystrophy, thickening, elongation, discoloration, crumbly texture; periungual hyperkeratosis, without drainage. The margins are incurvated/cryptotic, mildly tender, non-inflamed. All remaining digits: Toenails are minimally dystrophic. Orthopedic: Range of motion: Functional ankle, subtalar and first MTP joint range of motion. Lesion pattern: No forefoot or digital discrete keratotic lesions are noted. Radiology: Assessment/Plan Mildly symptomatic DSO/cryptosis bilateral great toes. Type II diabetes. Subjective diabetic neuropathy; intact protective sensation threshold. Parkinson's disorder. Fractured sternum (01/30/2024). Plan: conservative and palliative care measures are preferred, understood, and again indicated. There remains no interest in oral therapy (polypharmacy). Continue topical therapy measures; use vinegar and/or Listerine as directed; advised as to limited efficacy. Diabetic education and assessment. Hygiene and skin care measures discussed. Discussed appropriate supportive footwear Procedure: Toenail debridement: Aseptic technique: Hand and power instrumentation: Onychodebridement in length and thickness, with curettage of any cryptotic margins, all periungual debris; providing effective symptom and pressure relief; reducing shoe and digital trauma. This note was created with the assistance of a speech recognition program. While intending to generate a timely document that accurately reflects the content of the visit, no guarantee can be provided that every grammatical or spelling mistake has been or will be identified or corrected. Thank you for your understanding. Ayaz Santo DPM documented in this encounter [facility] 07-07-2024 Instructions Ayaz Santo DPM - 07/07/2024 9:30 AM EST As noted documented in this encounter [facility] 06-19-2024 Telephone encounter Note Summary: in-step order 06/19/2024 Order sent via secured fax to [employer] at with confirmation of receipt received. Order also sent for scanning. Kathleen Flanagan LPN June 19, 2024 9:45 AM [facility] 06-19-2024 Miscellaneous Notes Summary: in-step order 06/19/2024 Order sent via secured fax to [employer] at with confirmation of receipt received. Order also sent for scanning. Kathleen Flanagan LPN June 19, 2024 9:45 AM documented in this encounter [facility] 06-18-2024 Note HNO ID: [id number] Author: DONALD ALBERTS, DO Service: ? Author Type: Physician Type: Progress Notes Filed: 06/18/2024 10:18 Note Text: [facility] - FOLLOW UP EVALUATION Nathan Bolton MD [address] [facility] [address] Dear Nathan Bolton MD: I had the pleasure of seeing Mr. Wetzel for follow-up today. As you know he is a 78 year old male with a history of PD since . He is seen with his . Subjective Interval History: There have been major falls - broke his sternum and another fall there was concern for a broken hip. He went through aggressive therapy and he had made great gains and has returned to baseline. The patient missed on his PD therapy during that time. No change to the PD regimen. he tried an upright walker and did much better. The drooling is controlled with the atropine drops. PCP is starting him on JARDIANCE 25mg. The patient denies any recent illness or [...] others. The patient denies any new pain. The speech has gotten worse - more issues with being understood. Movement Disorders Medications Schedule - as of the start of the visit: Medications 8A 11A 2P 5P Sinemet 25/100 2 2 2 2 Azilect 1mg 1 0 0 0 Parkinson's Motor Complications Wearing off: yes Questionnaires: In addition, the following areas that may be affected by abnormal involuntary movements were evaluated: Daily activities Difficulties with eatin (none) Difficulties in dressing: Yes (slight) Difficulties with hygiene activities: Yes (slight) Difficulties with handwriting: Yes (moderate) Difficulties with doing hobbies and other activities: Yes (slight) Difficulties turning in bed: Yes (slight) Difficulties getting out of bed, car or chair: Yes (mild) Tremors/Gait/Balance Shaking or tremors: 0 (none) Walking and balance problems: Yes (moderate) see HPI Number of falls in the Last Month: 0 Gait freezing: Yes (moderate) Autonomic/Pain Lightheadeness on standing: Yes (mild) Urinary problems: Yes (slight) Constipation problems: Yes (slight) Pain and other sensations: Yes (slight) Speech/Swallowing Speech problems: Yes (mild) Drooling: Yes (severe) see HPI Chewing and swallowing problems: Yes (slight) Sleep/Fatigue Sleep problems: Yes (slight) Daytime sleepiness: Yes (slight) Fatigue: Yes (slight) Mood/Behavior Depression: PHQ-9 Score: 4 usually representing no significant (0-4) depression. Anxiety: JULIO C-7 Total Score: 2 usually representing no significant (0-4) anxiety. Finally, the following table shows the patient's overall global physical and mental health using the PROMIS scale: PROMIS-10 Flowsheet Row Office Visit from 06/18/2024 in Neurology Office Visit from 12/26/2023 in Neurology Global Physical Health T Score 42.3 44.9 Global Mental Health T Score 50.8 50.8 0-10 Standard Pain Scale 3 3 *PROMIS-10 scoring scale: mean = 50, over 50 is above average, under 50 is below average ALLERGIES No Known Allergies Current Outpatient Medications Medication Sig omeprazole (PRILOSEC) 40 mg capsule Take 40 mg by mouth two times a day. One in am and one at pm atropine 1 % ophthalmic solution Use 1-2 drops daily as need for drooling rasagiline (AZILECT) 1 mg tab Take 1 tablet by mouth once daily. carbidopa-levodopa (SINEMET) 25-100 mg per tablet Take 2 tablets by mouth four times daily. [Every 3-hours] glipiZIDE (GLUCOTROL XL) 5 mg 24 hr tablet Take 5 mg by mouth two times a day. ONETOUCH ULTRA BLUE TEST STRIP test strip once daily. ONETOUCH ULTRASOFT LANCETS lancets once daily. meloxicam (MOBIC) 7.5 mg tablet Take 7.5 mg by mouth once daily. metFORMIN ER (GLUCOPHAGE XR) 500 mg 24 hr tablet 500 mg once daily. ramipril (ALTACE) 1.25 mg capsule 1.25 mg once daily. simvastatin (ZOCOR) 40 mg tablet 40 mg daily at bedtime. aspirin, enteric coated (ASPIRIN, ENTERIC COATED) 81 mg EC tablet Take 81 mg by mouth once daily. Magnesium 250 mg tab Take 250 mg by mouth once daily. multivit-minerals/FA/lycopene (ONE-A-DAY MEN'S ORAL) Take by mouth once daily. empagliflozin (JARDIANCE) 25 mg tablet Take 1 tablet by mouth daily with breakfast. metoprolol succinate ER (TOPROL XL) 50 mg 24 hr tablet 50 mg once daily. 1/2 tablet daily Vitamin E, dl, acetate, (VITAMIN E) 400 unit capsule Take 400 Units by mouth once daily. No current facility-administered medications for this visit. Objective Vital Signs: BP 131/75 (BP Site: Left Arm, BP Po (more content not included)... [facility] 06-18-2024 History of Present illness Narrative [facility] - FOLLOW UP EVALUATION Nathan Bolton MD [address] [facility] [id number] Dear Nathan Bolton MD: I had the pleasure of seeing Mr. Wetzel for follow-up today. As you know he is a 78 year old male with a history of PD since . He is seen with his . Subjective Interval History: There have been major falls - broke his sternum and another fall there was concern for a broken hip. He went through aggressive therapy and he had made great gains and has returned to baseline. The patient missed on his PD therapy during that time. No change to the PD regimen. he tried an upright walker and did much better. The drooling is controlled with the atropine drops. PCP is starting him on JARDIANCE 25mg. The patient denies any recent illness or [...] others. The patient denies any new pain. The speech has gotten worse - more issues with being understood. Movement Disorders Medications Schedule - as of the start of the visit: Medications 8A 11A 2P 5P Sinemet 25/100 2 2 2 2 Azilect 1mg 1 0 0 0 Parkinson's Motor Complications Wearing off: yes Questionnaires: In addition, the following areas that may be affected by abnormal involuntary movements were evaluated: Daily activities Difficulties with eatin (none) Difficulties in dressing: Yes (slight) Difficulties with hygiene activities: Yes (slight) Difficulties with handwriting: Yes (moderate) Difficulties with doing hobbies and other activities: Yes (slight) Difficulties turning in bed: Yes (slight) Difficulties getting out of bed, car or chair: Yes (mild) Tremors/Gait/Balance Shaking or tremors: 0 (none) Walking and balance problems: Yes (moderate) see HPI Number of falls in the Last Month: 0 Gait freezing: Yes (moderate) Autonomic/Pain Lightheadeness on standing: Yes (mild) Urinary problems: Yes (slight) Constipation problems: Yes (slight) Pain and other sensations: Yes (slight) Speech/Swallowing Speech problems: Yes (mild) Drooling: Yes (severe) see HPI Chewing and swallowing problems: Yes (slight) Sleep/Fatigue Sleep problems: Yes (slight) Daytime sleepiness: Yes (slight) Fatigue: Yes (slight) Mood/Behavior Depression: PHQ-9 Score: 4 usually representing no significant (0-4) depression. Anxiety: JULIO C-7 Total Score: 2 usually representing no significant (0-4) anxiety. Finally, the following table shows the patient's overall global physical and mental health using the PROMIS scale: PROMIS-10 Flowsheet Row Office Visit from 06/18/2024 in Neurology Office Visit from 12/26/2023 in Neurology Global Physical Health T Score 42.3 44.9 Global Mental Health T Score 50.8 50.8 0-10 Standard Pain Scale 3 3 *PROMIS-10 scoring scale: mean = 50, over 50 is above average, under 50 is below average ALLERGIES No Known Allergies Current Outpatient Medications Medication Sig omeprazole (PRILOSEC) 40 mg capsule Take 40 mg by mouth two times a day. One in am and one at pm atropine 1 % ophthalmic solution Use 1-2 drops daily as need for drooling rasagiline (AZILECT) 1 mg tab Take 1 tablet by mouth once daily. carbidopa-levodopa (SINEMET) 25-100 mg per tablet Take 2 tablets by mouth four times daily. [Every 3-hours] glipiZIDE (GLUCOTROL XL) 5 mg 24 hr tablet Take 5 mg by mouth two times a day. ONETOUCH ULTRA BLUE TEST STRIP test strip once daily. ONETOUCH ULTRASOFT LANCETS lancets once daily. meloxicam (MOBIC) 7.5 mg tablet Take 7.5 mg by mouth once daily. metFORMIN ER (GLUCOPHAGE XR) 500 mg 24 hr tablet 500 mg once daily. ramipril (ALTACE) 1.25 mg capsule 1.25 mg once daily. simvastatin (ZOCOR) 40 mg tablet 40 mg daily at bedtime. aspirin, enteric coated (ASPIRIN, ENTERIC COATED) 81 mg EC tablet Take 81 mg by mouth once daily. Magnesium 250 mg tab Take 250 mg by mouth once daily. multivit-minerals/FA/lycopene (ONE-A-DAY MEN'S ORAL) Take by mouth once daily. empagliflozin (JARDIANCE) 25 mg tablet Take 1 tablet by mouth daily with breakfast. metoprolol succinate ER (TOPROL XL) 50 mg 24 hr tablet 50 mg once daily. 1/2 tablet daily Vitamin E, dl, acetate, (VITAMIN E) 400 unit capsule Take 400 Units by mouth once daily. No current facility-administered medications for this visit. Objective Vital Signs: BP 131/75 (BP Site: Left Arm, BP Position: Sitting, BP Cuff Size: Regular Adult) Pulse 93 Orthostatic Vitals: None for this encounter No LMP for male patient. There is no height or weight on file to calculate BMI. General Physical Examination: He is accompanied by his spouse. General: Awake, alert, interactive, no acute distress, good nutritional status, normal development, well-kept Only a limited general examination was done. General Neurological Examination: Neurological Exam Mental Status Awake and alert. [...] Left pathological reflexes: Kirstin's absent. Coordination Right: Dklhyz-cb-[id number] normal. Rapid alternating movement normal.Left: Rflryt-on-aypl normal. Rapid alternating movement normal. Gait Casual gait: Narrow stance. Reduced stride length. Shuffling gait. Abnormal pull test. The patient did not require assistive devices to ambulate. Movement Disorders Scales Performed: MDS-UPDRS Motor subscale condition of exam Medication Off/On/Naiive Time of UPDRS 1000 Time of Last Medication 0720 Last Medication Taken 2x SINEMET 25/100 DBS Right DBS Left MDS-UPDRS [...] is easily achieved. Rigidity Right Lower Extremity 3-Moderate. Rigidity detected without the activation maneuver. Full range of motion is achieved with effort. Rigidity Left Lower Extremity 3-Moderate. Rigidity detected without the activation maneuver. Full range of motion is achieved with effort. Finger Taps Right 2-Mild. a) 3 to [...] midway in the sequence. Toe Taps Right 3-Moderate. a) more [...] but with substantial gait impairment. Gait Freezing 2-Mild. Freezes on starting, turning, or walking through doorway with more than one halt during any of these activities, but continues smoothly without freezing during straight walking. Posture Stability 3-Moderate. Stands safely, but with absence of postural response, falls if not caught by examiner. Posture 3-Moderate. Stooped posture, scoliosis or leaning to one side that cannot be corrected volitionally to a normal posture by the patient. Body Bradykinesia 1-Slight. Slight global slowness and poverty of spontaneous movements. Postural Tremor Hand Right 1-Slight. Tremor is present but less than 1cm in amplitude. Postural Tremor Hand Left 1-Slight. Tremor is present but less than 1cm in amplitude. Kinetic Tremor Right 1-Slight. Tremor is present but less than 1cm in amplitude. Kinetic Tremor Left 2-Mild. Tremor is at least 1 but less than 3 cm in amplitude. Rest Tremor Amplitude Right Upper Extremity 0-Normal. No tremor. Rest Tremor Amplitude Left Upper Extremity 0-Normal. No tremor. Rest Tremor Amplitude Right Lower Extremity 0-Normal. No tremor. Rest Tremor Amplitude Left Lower Extremity 0-Normal. No tremor. Rest Tremor Amplitude Lip/Jaw 0-Normal. No tremor. Rest Tremor Constancy 0-Normal. No tremor. MDS-UPDRS Motor subscale totals Left Total 20 Right Total 19 Midline Total 21 Tremor Total / 10 5 PIGD Total / 3 7 Overall Total 60 Change Better/Worse Better % Change Compared to Last Filed Total -1.63 Assessment and Plan: Assessment Mr. Wetzel is a 78 year old year old male with PD with worsening gait The patient's gait is worsening and led to falls with fracture - he tried an upright walker and did much better. The following are the current problems noted and addressed during this visit: Parkinson's disease without dyskinesia or fluctuating manifestations (hcc) (primary encounter diagnosis) Hypokinetic parkinsonian dysphonia (hcc) Plan 06/18/2024 Visit: Continue current antiparkinsonian regimen as dosed. Rx for U-STEP Walking Stabilizer Walker Rx for speech therapy to focus on [employer] ([facility]) Interested in clinical research? Not discussed Updated Movement Disorders Medication Schedule: Medications 8A 11A 2P 5P Sinemet 25/100 2 2 2 2 Azilect 1mg 1 0 0 0 Return at or around: 12/16/24 Level of service : 79712 (20-29 min). Time spent 20 min on the day of service, which included preparing to see the patient, pmlz-to-evuh patient care, completing clinical documentation, obtaining and/or reviewing separately obtained history, performing a medically appropriate examination, counseling and educating the patient/family/caregiver, ordering medications, tests, or procedures, communicating with other HCPs (not separately reported), and communicating results to the patient/family/caregiver. Thank you for allowing me to be part of the clinical care of this patient! I look forward to continued participation in the patient s care with you. Please do not hesitate to call with any questions. Sincerely, Donald Alberts DO documented in this encounter [facility] 06-01-2024 History of Present illness Narrative Associated Problem(s): Type 2 diabetes mellitus with hyperglycemia, without long-term current use of insulin (CMS/HCC) BS elevated and due for labs. If A1C elevated will adjust medication. Stick to ADA diet and limit carbs. Associated Problem(s): Parkinson disease, symptomatic (CMS/HCC) Symptoms stable and follow with neurology. Associated Problem(s): Essential hypertension, benign (CMS/HCC) BP normal and monitor PRN. Associated Problem(s): DDD (degenerative disc disease), lumbar Pain stable and walk regularly. Use OTC PRN. If worsens return to pain management. Images from the original note were not included. Subjective Patient ID: Herrera Wetzel is a 78 y.o. male who presents for Follow-up (6 m). Follow up DM, HTN, back pain, and Parkinson's. Patient feels well today. BS remains elevated and around 240-250. Tries to eat well and stick to ADA diet. Denies signs of elevated BS such as polyuria, polyphagia or polydipsia. Checking BP PRN and typically controlled. BP normal today. Taking medication daily and tolerating without side effects. Denies feeling lightheaded or dizzy. Back pain stable. Mild pain in low back and across top hips. No radiation into gluteal region or down legs. Mild pain with standing and walking. Using OTC PRN which helps. Parkinson's stable. Still resting tremor and balance off. Slow gait but no falls. Following with neurology. In exercise class for Parkinson's. Review of Systems Constitutional: Negative for fatigue. [...] Assessment/Plan Problem List Items Addressed This Visit Type 2 diabetes mellitus with hyperglycemia, without long-term current use of insulin (CMS/HCC) - Primary BS elevated and due for labs. If A1C elevated will adjust medication. Stick to ADA diet and limit carbs. Relevant Orders Hemoglobin A1c DDD (degenerative disc disease), lumbar Pain stable and walk regularly. Use OTC PRN. If worsens return to pain management. Essential hypertension, benign (CMS/HCC) BP normal and monitor PRN. Parkinson disease, symptomatic (CMS/HCC) Symptoms stable and follow with neurology. documented in this encounter [facility] 05-25-2024 History of Present illness Narrative Images from the original note were not included. [id number] [place] [address] [address] [facility] [address] [facility] [id number] Patient: Herrera Wetzel Date of : 1945 Encounter Date: 05/25/2024 History of Present Illness: The patient is a 78 y.o. male, an established patient, and is here for history of elevated PSA. Regarding urination doing well. No known interval gross hematuria. PSA as below.. Urinalysis today: No results for input(s): EXTPOCURCO , EXTPOCURCH , EXTPOCAPP , EXTPOCURBS , EXTPOCURBIL , EXTPOCUKET , EXTPOCUSPG , EXTPOCUHGB , EXTPOCUPRO , EXTPOCUURO , EXTPOCULEU , EXTPOCUNIT , EXTPOCUWBC , EXTPOCUBLD , EXTPOCURBC , EXTPOCUCRY , EXTPOCUBAC , EXTPOCUTREP , EXTPOCUPH in the last 72 hours. Last BUN and creatinine: Lab Results Component Value Date BUN 19 06/20/2021 Lab Results Component Value Date CREATININE 0.89 06/20/2021 Last PSA: Lab Results Component Value Date PSA 4.50 (H) 05/18/2024 PSA 3.27 05/14/2023 PSA 4.14 (H) 08/06/2022 PSA 3.26 01/03/2022 No results found for: PROSTATICSP Past Medical, Family, and Social History Update: The following portions of the patient's history were reviewed and updated as appropriate: allergies, current medications, past family history, past medical history, past social history, past surgical history and problem list. Past Medical History: Diagnosis Date Benign prostatic hyperplasia Closed fracture sternum 01/30/2024 DDD (degenerative disc disease), lumbar Diabetes mellitus ([facility] [place]) Diabetes mellitus type 2, controlled ([facility] [place]) Dyslipidemia Elevated PSA Elevated PSA Hematuria Hyperlipidemia Hypertension Kidney stone Osteoarthritis Parkinson disease ([facility] [place]) Skin cancer basal and melanoma Visual impairment Past Surgical History: Procedure Laterality Date APPENDECTOMY CARDIAC SURGERY 1988 cardiac cath-no stents CATARACT EXTRACTION BILATERAL W/ ANTERIOR VITRECTOMY Bilateral 08/2022, 09/2022 CYST REMOVAL hand CYSTOSCOPY BIOPSY BLADDER N/A 01/23/2021 Performed by Yobany Gonzales MD at [facility] CYSTOSCOPY INSERTION STENT URETER Bilateral 01/23/2021 Performed by Yobany Gonzales MD at [facility] CYSTOSCOPY RETROGRADE PYELOGRAM Bilateral 01/23/2021 Performed by Yobany Gonzales MD at [facility] CYSTOURETEROSCOPY DIAGNOSTIC Bilateral 01/23/2021 Performed by Yobany Gonzales MD at [facility] NEEDLE BIOPSY FUSION PROSTATE N/A 07/04/2021 Performed by Yobany Gonzales MD at [facility] SKIN CANCER EXCISION MELANOMA ON HIS BACK VASECTOMY Family History Problem Relation Age of Onset Heart failure Father Cancer Mother Anesthesia problems Neg Hx Current Outpatient Medications Medication Sig Dispense Refill aspirin 81 mg Take 1 tablet (81 mg total) by mouth in the morning. Indications: treatment to prevent a heart attack. carbidopa-levodopa (SINEMET) 25-100 mg per tablet Take 1.5 tablets by mouth in the morning and 1.5 tablets at noon and 1.5 tablets in the evening and 1.5 tablets before bedtime. magnesium 250 mg tablet Take 1 tablet (250 mg total) by mouth in the morning. Indications: low amount of magnesium in the blood. meloxicam (MOBIC) 7.5 mg tablet Take 1 tablet (7.5 mg total) by mouth in the morning. Indications: joint damage causing pain and loss of function. metFORMIN (GLUCOPHAGE) 500 mg tablet Take 1 tablet (500 mg total) by mouth in the morning and 1 tablet (500 mg total) before bedtime. Indications: type 2 diabetes mellitus. metoprolol succinate XL (TOPROL-XL) 50 mg 24 hr tablet Take 1 tablet (50 mg total) by mouth in the morning. Indications: high blood pressure. juduycsh-putm-GP-calcium &mins (THERAGRAN-M) 9 mg iron-400 mcg tablet Take 1 tablet by mouth in the morning. ramipriL (ALTACE) 1.25 mg capsule Take 1 capsule (1.25 mg total) by mouth in the morning. Pt not sure why he is on this.. rasagiline (AZILECT) 1 mg tablet Take 1 tablet (1 mg total) by mouth in the morning. Indications: Parkinson's disease. simvastatin (ZOCOR) 40 mg tablet Take 1 tablet (40 mg total) by mouth nightly Indications: high cholesterol. vitamin E 200 units capsule Take 2 capsules (400 Units total) by mouth in the morning. No current facility-administered medications for this visit. (All medications reviewed and updated by provider since last office visit or hospitalization) Allergies: Patient has no known allergies. Tobacco History: Social History Tobacco Use Smoking Status Never Smokeless Tobacco Never (If patient a smoker, smoking cessation counseling offered) Social History: Social History Substance and Sexual Activity Alcohol Use Never Review of Systems: General: Negative for chills and fever. Cardiovascular: Negative for chest pain and shortness of breath. Gastrointestinal: Negative for constipation, diarrhea, nausea, and vomitting. Physical Exam: BP 128/73 Ht 180.3 cm (5' 11 ) Wt 72.6 kg (160 lb) BMI 22.32 kg/m Nontoxic no apparent distress. Respirations nonlabored. Skin is dry. Awake alert oriented x3. Digital rectal exam: Benign feeling prostate. Borders are well demarcated. No nodules noted. Uses a walker Digital rectal exam: Benign feeling prostate. Borders are well demarcated. No nodules noted. Assessment and Plan: Herrera was seen today for follow-up. Diagnoses and all orders for this visit: Elevated PSA - Prostatic specific antigen, diagnostic; Future Hematuria, gross Problem List High Hematuria, gross Overview ==== 05/25/2024 ==== no interval gross hematuria ==== 05/20/2023 ==== no interval gross hematuria last cytology was negative. ==== 08/15/2022 ==== no interval gross hematuria. Cytology today. ==== 03/06/2021 ==== status post initial hematuria evaluation with the dilation bulbar urethral stricture. Improve urination. No interval gross hematuria. 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 Nonsmoker. Apparently had some gross hematuria in the past but that may have been associated with stone. Per patient report no prior cystoscopy. PLAN: His CT scan was done with contrast upper tracts. No mention of any renal mass noted. Ureters to need to be cleared. Some small cysts in the kidney. Also questionable hydroureter. Cystoscopy. Retrograde pyelogram. Anesthesia. Potential ureteroscopy. Urine for Cytology. Elevated PSA - Primary Overview ==== 05/25/2024 ==== PSA slightly higher at 4.50--however within his range. Rectal exam is benign. He has had at least 2 negative biopsies. Advanced age as well. Some comorbidities. Will continue monitor. PSA 1 year ==== 05/20/2023 ==== PSA improved 3.27. Excellent finding. PSA 1 year. Digital rectal exam benign ==== 08/15/2022 ==== psa 4.14 and GAUTAM is negative ====02/07/22====PSA 3.26 ==== 07/10/2021 ==== #### MRI fusion guided biopsy negative ==== 05/08/2021 ==== Established problem, worsening. MRI PIRADS 4 x2 . ==== 12/21/2020 ==== history of elevated PSA followed by Dr. whitaker. Patient has had previous biopsy--47 CC prostate January 2019 left apex MODE. PSA is been above 4. Most recent PSA is 4.6 with a free and total ratio 35%. This was in October of 2020. PLAN: Has had negative previous biopsy. Free and total initial looked good. At some point may consider MRI Relevant Orders Prostatic specific antigen, diagnostic Follow-up: PSA 1 year return clinic Yobany Gonzales MD This note was created with the assistance of a speech recognition program. While intending to generate a timely document that accurately reflects the content of the visit, no guarantee can be provided that every grammatical or spelling mistake has been or will be identified or corrected. Thank you for your understanding. documented in this encounter [facility] 03-23-2024 History of Present illness Narrative Images from the original note were not included. Subjective Patient ID: Herrera Wetzel is a 78 y.o. male who presents for Nail care (Herrera Wetzel is a 78 y.o. male who presents for DM Foot Care PCP: Dr. Hoang PRICE 03/05/2024, A1C: 9.2, BS: 187.SS 10.5). HPI Chief complaint: requests care of thickened, deformed and discolored toenails. Problematic/symptomatic primarily involving bilateral great toes. Chronic toenail deformity, multiple years duration. Mildly symptomatic; describing pressure discomfort with shoe gear; also complains of catching and snagging on clothing etc. Denies bleeding or drainage. Attempts at self-care are difficult and ineffective; increasing risk exposure. His spouse is unable to provide effective care. Palliative care measures have provided favorable transient symptom relief. He and his spouse both note some improvement with topical care measures; compliance is good. Risk factors: Type II diabetes. Parkinson's disorder. Medical comorbidities. Polypharmacy. ASA therapy. Mobility and flexibility restraints. Toenail deformity. Digital and/or shoe trauma and related complications. Medications Current Outpatient Medications: acetaminophen (Tylenol 8 Hour) 650 MG ER tablet, Take 650 mg by mouth every 8 (eight) hours if needed for mild pain. Do not crush, chew, or split., Disp: , Rfl: aspirin 81 MG EC tablet, Take 81 mg by mouth in the morning., Disp: , Rfl: carbidopa-levodopa (Parcopa) 25-100 MG disintegrating tablet, Take 2 tablets by mouth in the morning and 2 tablets at noon and 2 tablets in the evening and 2 tablets before bedtime. 1 1/2 tab 4x daily., Disp: , Rfl: glipiZIDE (Glucotrol) 10 MG tablet, Take 1 tablet (10 mg) by mouth in the morning and 1 tablet (10 mg) in the evening. Take before meals., Disp: 180 tablet, Rfl: 3 magnesium 250 MG tablet, Take by mouth., Disp: , Rfl: meloxicam (Mobic) 7.5 MG tablet, Take 1 tablet (7.5 mg) by mouth Daily, Disp: 90 tablet, Rfl: 3 metFORMIN XR (Glucophage-XR) 500 MG 24 hr tablet, Take 1 tablet (500 mg) by mouth in the morning and 1 tablet (500 mg) before bedtime. Do not crush, chew, or split.., Disp: 180 tablet, Rfl: 3 Multiple Vitamin (multivitamin) tablet, Take 1 tablet by mouth in the morning., Disp: , Rfl: omeprazole (PriLOSEC) [address] capsule, Take 1 capsule (40 mg) by mouth in the morning. Take before meals. Do not crush or chew.., Disp: 90 capsule, Rfl: 3 rasagiline (Azilect) 0.5 MG tablet, Take 1 mg by mouth in the morning., Disp: , Rfl: simvastatin (Zocor) 40 MG tablet, Take 1 tablet (40 mg) by mouth at bedtime, Disp: 90 tablet, Rfl: 3 Allergies Patient has no known allergies. Past Surgical History Past Surgical History: Procedure Laterality Date APPENDECTOMY CYST REMOVAL Left 1979 from hand VASECTOMY 1979 Family History Family History Problem Relation Name Age of Onset Cancer Mother Aida wetzel Vision loss Father Elvin Wetzel Sr Objective General assessment: Alert and oriented. Pleasant disposition. Ambulatory with walker assist. Accompanied by his spouse, Laurie. Vascular: DP 2/4 bilateral. PT 1/4 bilateral. CFT brisk all digits. Skin temperature: Warm-cool all digits. Unremarkable for ankle edema. Diffuse pigmentation of the lower extremities. Neurologic: tactile and light touch sensation appears grossly intact. 5.07 monofilament: Intact localization all points plantarly. Negative Tinel's along the tarsal canal. Dermatologic: intact. Skin turgor is good. Web space areas are clean, dry, non-inflamed. Unremarkable for eczema or dermatitis. Toenail pathology: Bilateral great toes: DSO/pincer toenail deformity: Toenail dystrophy, thickening, elongation, discoloration, crumbly texture; periungual hyperkeratosis, without drainage. The margins are incurvated/cryptotic, mildly tender, non-inflamed. All remaining digits: Toenails are minimally dystrophic. Orthopedic: Range of motion: Functional ankle, subtalar and first MTP joint range of motion. Lesion pattern: No forefoot or digital discrete keratotic lesions are noted. Radiology: Assessment/Plan Mildly symptomatic DSO/cryptosis bilateral great toes. Type II diabetes. Subjective diabetic neuropathy; intact protective sensation threshold. Parkinson's disorder. Fractured sternum (01/30/2024). Plan: conservative and palliative care measures are preferred, understood, and again indicated. There remains no interest in oral therapy (polypharmacy). Continue topical therapy measures; use vinegar and/or Listerine as directed; advised as to limited efficacy. Diabetic education and assessment. Hygiene and skin care measures discussed. Discussed appropriate supportive footwear Procedure: Toenail debridement: Aseptic technique: Hand and power instrumentation: Onychodebridement in length and thickness, with curettage of any cryptotic margins, all periungual debris; providing effective symptom and pressure relief; reducing shoe and digital trauma. This note was created with the assistance of a speech recognition program. While intending to generate a timely document that accurately reflects the content of the visit, no guarantee can be provided that every grammatical or spelling mistake has been or will be identified or corrected. Thank you for your understanding. Ayaz Santo DPM documented in this encounter [facility] 03-23-2024 Instructions Ayaz Santo DPM - 03/23/2024 10:15 AM EDT As noted documented in this encounter [facility] 12-26-2023 Instructions Donald Alberts DO - 12/26/2023 [...] Compazine or Phenergan. documented in this encounter [facility] 12-26-2023 Note HNO ID: [id number] Author: DONALD ALBERTS DO Service: ? Author Type: Physician Type: Progress Notes Filed: 12/26/2023 13:43 Note Text: [facility] - FOLLOW UP EVALUATION Donald Alberts [address] [facility] [address] Nathan Bolton MD [address] [facility] [address] Herrera Wetzel is a 78 year old male with a history of PD. He is seen with his . Interval History Since Last Visit: The patient is having more issues with falling. 4(four) falls. Going to PT and DtD. Better with U-STEP Walking Stabilizer Walker. Wearing-off causes lots of trouble with his walking. More festinating. More cgveoekm-to-pzhh (FOG). The patient denies any recent illness [...] Cardiac: Regular rate and rhythm, no murmur Extremitie (more content not included)... [facility] 12-26-2023 History of Present illness Narrative [facility] - FOLLOW UP EVALUATION Donald Alberts [address] [facility] [address] Nathan Bolton MD [address] [facility] [address] Herrera Wetzel is a 78 year old male with a history of PD. He is seen with his . Interval History Since Last Visit: The patient is having more issues with falling. 4(four) falls. Going to PT and DtD. Better with U-STEP Walking Stabilizer Walker. Wearing-off causes lots of trouble with his walking. More festinating. More ueemstph-or-feor (FOG). The patient denies any recent illness [...] Left pathological reflexes: Kirstin's absent. Coordination Right: Rzfjia-ll-eyka normal. Rapid alternating movement normal.Left: Mrsmvd-io-djuh normal. Rapid alternating movement normal. Gait Casual [...] or stand unassisted). Assessment and Plan: Mr. Wetzel is a 78 year old male with [...] counseling regarding preparing to see the patient, qqvs-dn-jmva patient care, completing clinical documentation, obtaining and/or reviewing separately obtained history, performing a medically appropriate examination, counseling and educating the patient/family/caregiver, ordering medications, tests, or procedures, and communicating results to the patient/family/caregiver. I tried to answer all of the patient's questions and concerns during this visit. Donald Alberts DO Senior Staff Neurologist - [facility] documented in this encounter [facility] 09-10-2023 History of Present illness Narrative Associated Problem(s): Epigastric abdominal pain Unclear cause of pain but possible gastritis or ulcer. Start omeprazole BID. Check UGI and US gallbladder. If pain or symptoms worsens go to ER. Subjective Patient ID: Herrera Wetzel is a 78 y.o. male who presents [...] w KUB documented in this encounter [facility] 06-14-2023 Note HNO ID: [id number] Author: Donald Alberts, DO Service: ? Author Type: Physician Type: Progress Notes Filed: 06/14/2023 3:34 PM Note Text: [facility] - FOLLOW UP EVALUATION Nathan Bolton MD [address] [address] Herrera Wetzel is a 77 year old male with a history of PD. He is seen with his . Interval History Since Last Visit: The patient had a swallowing test in late november 2022 - no issues other than more focus on swallowing was made to the patient. He is going to [facility] still. 1 fall in November o/w [...] Cardiac: Regular r (more content not included)... [facility] 02-20-2023 Miscellaneous Notes Last appt 12/05/22 [facility] Requested Prescriptions Pending Prescriptions Disp Refills carbidopa-levodopa (SINEMET) 25-100 mg per tablet 540 tablet 3 Sig: Take 1.5 tablets by mouth four times daily. documented in this encounter [facility] 12-13-2022 Note PROCEDURE: XR HIP RT 2 [...] authenticated by: AYAZ NICOLE Date: 2022-12-13 09:47 [facility] 12-13-2022 Note PROCEDURE: XR FOREAR [...] by: AYAZ NICOLE Date: 2022-12-13 09:43 [facility] 12-13-2022 Note PROCEDURE: XR FOREAR [...] by: AYAZ NICOLE Date: 2022-12-13 09:43 [facility] 12-05-2022 Note HNO ID: [id number] Author: Donald Alberts, DO Service: ? Author Type: Physician Type: Progress Notes Filed: 12/05/2022 2:18 PM Note Text: [facility] - FOLLOW UP EVALUATION Donald Alberts [address] [facility] [id number] Nathan Bolton MD [address] [facility] [place] [address] Herrera Wetzel is a 77 year old male with a history of parkinsonism. He is seen with family. Interval History Since Last Visit: He is falling. There is more wibkynik-tv-ufeq (FOG) - this is the cause of the falls. He has fallen while he is carrying things. Multitasking is a big issue. There were two falls in the post op period following cataract surgery. FOG seems to be worse in the PM. There is drooling at night. The mucous in the back of the throat is the issue. 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 The Sinemet is not [...] Right pathological reflex (more content not included)... [facility] 12-05-2022 Instructions Donald Alberts DO - 12/05/2022 2:12 PM EDT Medications 8A 1130A 3P 6P Sinemet 25/100 1.5 1.5 1.5 1.5 Azilect 1mg 1 0 0 0 documented in this encounter [facility] 12-05-2022 History of Present illness Narrative [facility] - FOLLOW UP EVALUATION Donald Alberts [address] [facility] [address] Nathan Bolton MD [address] [facility] [address] Herrera Wetzel is a 77 year old male with a history of parkinsonism. He is seen with family. Interval History Since Last Visit: He is falling. There is more jiyhyzbl-gu-zfde (FOG) - this is the cause of the falls. He has fallen while he is carrying things. Multitasking is a big issue. There were two falls in the post op period following cataract surgery. FOG seems to be worse in the PM. There is drooling at night. The mucous in the back of the throat is the issue. 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 The Sinemet is not [...] Left pathological reflexes: Kirstin's absent. Coordination Right: Icqocz-xa-qdsk normal. Rapid alternating movement normal.Left: Vvtazo-rf-lrsa normal. Rapid alternating movement normal. Gait Casual [...] instability; physically independent). Assessment and Plan: Mr. Wetzel is a 77 year old male with idiopathic Parkinson's disease. The following are the current problems noted and addressed during this visit: Pd (parkinson's disease) ([facility]) (primary encounter diagnosis) Sialorrhea Hypophonia Plan: Continue current antiparkinsonian regimen as dosed other than increasing Sinemet 2. PA for botulinum toxin (Myobloc) injections 3. SURVEY RESEARCH MANAGER locally for swallow evaluation Return in about 6 months (around 06/07/2023). Medical decision making was high complexity due to patient's, multiple symptoms, advancing disease The total time spent on the patient care was 30 minutes with greater than 50% of the time spent on counseling regarding preparing to see the patient, drdu-wm-wjfw patient care, completing clinical documentation, obtaining and/or reviewing separately obtained history, performing a medically appropriate examination, counseling and educating the patient/family/caregiver, ordering medications, tests, or procedures, communicating with other HCPs (not separately reported), communicating results to the patient/family/caregiver, and care coordination (not separately reported) Donald Alberts DO Senior Staff Neurologist - [facility] Diagnosis: Sialorrhea (K11.7) Current Examination: [...] EMG guidance: Yes documented in this encounter [facility] 09-27-2022 Note OPERATIVE NOTE OPERATION DATE: 09/27/2022 [...] ensuring mobility, phacoemulsification was performed in a nolczir-dgf-svcvog-type fashion. After all nuclear material had been [...] the following day for postoperative care. [facility] 09-27-2022 Note PREOPERATIVE HISTORY AND [...] go forward with his elective procedure. [facility] 09-10-2022 Miscellaneous Notes Requested Prescriptions Pending Prescriptions Disp Refills rasagiline (AZILECT) 1 mg tab 90 tablet 1 Sig: Take 1 tablet by mouth once daily. documented in this encounter [facility] 08-30-2022 Note OPERATIVE NOTE OPERATION DATE: 08/30/2022 [...] ensuring mobility, phacoemulsification was performed in a sfzaixy-vna-hhdwwf-type fashion. After all nuclear material had been [...] the following day for postoperative care. [facility] 08-30-2022 Note HISTORY AND PHYSICAL [...] go forward with his elective procedure. [facility] 06-27-2022 Note CONSULTATION CONSULTATION DATE: [...] follow up on a p.r.n. basis. [facility] 06-22-2022 Miscellaneous Notes I spoke with Mr. Wetzel to inform her MRI for Herrera is normal per Dr. Patino. ----- Message from uJan Patino MD sent at 06/20/2022 2:51 PM EST ----- Regarding: [facility], I am covering for Dr. Alberts today. Please let this patient know that his MRI results came back normal. Thanks, Dr. Patino documented in this encounter [facility] 06-20-2022 History of Present illness Narrative Radiology Service Progress Note PATIENT NAME: Herrera Wetzel DATE OF SERVICE: June 20, 2022 TIME: [...] RT Elo(R) June 20, 2022 1:15 PM documented in this encounter [facility] 06-06-2022 History of Present illness Narrative [facility] - FOLLOW UP EVALUATION Nathan Bolton MD [address] [facility] [address] Herrera Wetzel is a 76 year old male with a history of PD. He is seen with his . Interval History Since Last Visit: The patient notes that he is more clumsy - the speech has worsened over the last couple of weeks. the walking has had more uptlaqsm-lq-cgzm (FOG). No falls are noted. The notes [...] Left pathological reflexes: Kirstin's absent. Coordination Right: Nqsydd-bs-mpce normal. Rapid alternating movement normal. Left: Gxiyek-vt-poqd normal. Rapid alternating movement normal. Gait Casual [...] impairment of balance). Assessment and Plan: Mr. Wetzel is a 76 year old male with idiopathic Parkinson's disease. The following are the current problems noted and addressed during this visit: Pd (parkinson's disease) ([facility]) (primary encounter diagnosis) Dysarthria Plan: Continue current antiparkinsonian regimen as dosed. MRI brain for dysarthria Medical decision making was high complexity due to patient's, multiple symptoms, advancing disease The total time spent on the patient care was 25 minutes with greater than 50% of the time spent on counseling regarding preparing to see the patient, fecj-wh-ywla patient care, completing clinical documentation, obtaining and/or reviewing separately obtained history, performing a medically appropriate examination, counseling and educating the patient/family/caregiver, ordering medications, tests, or procedures, and communicating results to the patient/family/caregiver. I tried to answer all of the patient's questions and concerns during this visit. Donald Alberts DO Senior Staff Neurologist - [facility] documented in this encounter [facility] 05-15-2022 Note CONSULTATION CONSULTATION DATE: 05/15/2022 CHIEF COMPLAINT: Low back pain, posterior thigh pain. HISTORY OF PRESENT ILLNESS: This is a very pleasant, 76-year-old gentleman who is accompanied by his . The patient suffers from Parkinson's. The patient is being treated at [facility] with regards to this. The patient reports [...] patient currently takes Mobic 7.5 daily, Tylenol aecx-tko-aokroqf. The patient also is on Sinemet, metformin, [...] mg IM. CC: Nathan Bolton M.D. [facility] Evaluation note Diagnosis PD (Parkinson's disease) ([facility])- Primary Paralysis agitans Dysarthria [facility] PD (Parkinson's disease) (HCC)- Primary Paralysis agitans Sialorrhea Disturbance of salivary secretion Hypophonia Other voice and resonance disorders [facility] Diagnosis PD (Parkinson's disease) (HCC) Paralysis agitans [facility] Diagnosis Sialorrhea- Primary Disturbance of salivary secretion [facility] Diagnosis Epigastric abdominal pain- Primary Abdominal pain, epigastric [facility] Diagnosis Parkinson's disease without dyskinesia or fluctuating manifestations (HCC)- Primary Sialorrhea Disturbance of salivary secretion [facility] Diagnosis PD (Parkinson's disease) (HCC) Paralysis agitans Dysarthria [facility] Diagnosis Hematuria, unspecified type- Primary Hematuria, gross Gross hematuria Elevated PSA Elevated prostate specific antigen (PSA) Elevated PSA- Primary Elevated prostate specific antigen (PSA) 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 Elevated PSA- Primary Elevated prostate specific antigen (PSA) Elevated PSA- Primary Elevated prostate specific antigen (PSA) Hematuria, gross Gross hematuria Elevated PSA- Primary Elevated prostate specific antigen (PSA) Hematuria, gross Gross hematuria [facility] Diagnosis Epigastric abdominal pain- Primary Abdominal pain, epigastric Type 2 diabetes mellitus with hyperglycemia, without long-term current use of insulin (CMS/HCC)- Primary Essential hypertension, benign (CMS/HCC) Essential hypertension, benign DDD (degenerative disc disease), lumbar Degeneration of lumbar or lumbosacral intervertebral disc Parkinson disease, symptomatic (CMS/HCC) Paralysis agitans Encounter for long-term (current) use of medications Encounter for long-term (current) use of other medications Dyslipidemia (CMS/HCC) Other and unspecified hyperlipidemia Type 2 diabetes mellitus with other specified complication, without long-term current use of insulin (CMS/HCC) Essential hypertension, benign (CMS/HCC)- Primary Essential hypertension, benign Fall, subsequent encounter Closed fracture of body of sternum with delayed healing Closed fracture of body of sternum with routine healing- Primary Parkinson disease, symptomatic (CMS/HCC) Paralysis agitans Unsteady gait Abnormality of gait Essential hypertension, benign (CMS/HCC) Essential hypertension, benign Type 2 diabetes mellitus with hyperglycemia, without long-term current use of insulin (CMS/HCC)- Primary Essential hypertension, benign (CMS/HCC) Essential hypertension, benign Degeneration of intervertebral disc of lumbar region with discogenic back pain Parkinson disease, symptomatic (CMS/HCC) Paralysis agitans Immunodeficiency due to conditions classified elsewhere (CMS/HCC) documented [facility] encounter [facility]* Diagnosis Epigastric abdominal pain- Primary Abdominal pain, epigastric Type 2 diabetes mellitus with hyperglycemia, without long-term current use of insulin (CMS/HCC)- Primary Essential hypertension, benign (CMS/HCC) Essential hypertension, benign DDD (degenerative disc disease), lumbar Degeneration of lumbar or lumbosacral intervertebral disc Parkinson disease, symptomatic (CMS/HCC) Paralysis agitans Encounter for long-term (current) use of medications Encounter for long-term (current) use of other medications Dyslipidemia (CMS/HCC) Other and unspecified hyperlipidemia Type 2 diabetes mellitus with other specified complication, without long-term current use of insulin (CMS/HCC) Essential hypertension, benign (CMS/HCC)- Primary Essential hypertension, benign Fall, subsequent encounter Closed fracture of body of sternum with delayed healing Closed fracture of body of sternum with routine healing- Primary Parkinson disease, symptomatic (CMS/HCC) Paralysis agitans Unsteady gait Abnormality of gait Essential hypertension, benign (CMS/HCC) Essential hypertension, benign Type 2 diabetes mellitus with hyperglycemia, without long-term current use of insulin (CMS/HCC)- Primary Essential hypertension, benign (CMS/HCC) Essential hypertension, benign Degeneration of intervertebral disc of lumbar region with discogenic back pain Parkinson disease, symptomatic (CMS/HCC) Paralysis agitans Immunodeficiency due to conditions classified elsewhere (CMS/HCC) Type 2 diabetes mellitus with hyperglycemia, without long-term current use of insulin (CMS/HCC)- Primary documented in this encounter [facility]* Diagnosis Parkinson's disease without dyskinesia or fluctuating manifestations (HCC)- Primary Hypokinetic Parkinsonian dysphonia (HCC) Dysphonia [facility] Diagnosis Epigastric abdominal pain- Primary Abdominal pain, epigastric Type 2 diabetes mellitus with hyperglycemia, without long-term current use of insulin (CMS/HCC)- Primary Essential hypertension, benign (CMS/HCC) Essential hypertension, benign DDD (degenerative disc disease), lumbar Degeneration of lumbar or lumbosacral intervertebral disc Parkinson disease, symptomatic (CMS/HCC) Paralysis agitans Encounter for long-term (current) use of medications Encounter for long-term (current) use of other medications Dyslipidemia (CMS/HCC) Other and unspecified hyperlipidemia Type 2 diabetes mellitus with other specified complication, without long-term current use of insulin ([facility]) Essential hypertension, benign (CMS/HCC)- Primary Essential hypertension, benign Fall, subsequent encounter Closed fracture of body of sternum with delayed healing Closed fracture of body of sternum with routine healing- Primary Parkinson disease, symptomatic (CMS/HCC) Paralysis agitans Unsteady gait Abnormality of gait Essential hypertension, benign (CMS/HCC) Essential hypertension, benign Type 2 diabetes mellitus with hyperglycemia, without long-term current use of insulin ([facility])- Primary Essential hypertension, benign (CMS/HCC) Essential hypertension, benign Degeneration of intervertebral disc of lumbar region with discogenic back pain Parkinson disease, symptomatic (CMS/HCC) Paralysis agitans Immunodeficiency due to conditions classified elsewhere ([facility]) Dermatophytosis of nail- Primary Dystrophic nail Other specified disease of nail Pain around toenail, right foot Pain around toenail, left foot documented in this encounter [facility]* Diagnosis Dermatophytosis of nail- Primary Dystrophic nail Other specified disease of nail Pain around toenail, right foot Pain around toenail, left foot documented in this encounter [facility]* Diagnosis Epigastric abdominal pain- Primary Abdominal pain, epigastric Type 2 diabetes mellitus with hyperglycemia, without long-term current use of insulin ([facility])- Primary Essential hypertension, benign (CMS/HCC) Essential hypertension, benign DDD (degenerative disc disease), lumbar Degeneration of lumbar or lumbosacral intervertebral disc Parkinson disease, symptomatic ([facility]/HCC) Paralysis agitans Encounter for long-term (current) use of medications Encounter for long-term (current) use of other medications Dyslipidemia (CMS/HCC) Other and unspecified hyperlipidemia Type 2 diabetes mellitus with other specified complication, without long-term current use of insulin ([facility]) Essential hypertension, benign ([facility]/HCC)- Primary Essential hypertension, benign Fall, subsequent encounter Closed fracture of body of sternum with delayed healing Closed fracture of body of sternum with routine healing- Primary Parkinson disease, symptomatic (CMS/HCC) Paralysis agitans Unsteady gait Abnormality of gait Essential hypertension, benign (CMS/HCC) Essential hypertension, benign Type 2 diabetes mellitus with hyperglycemia, without long-term current use of insulin ([facility]/HCC)- Primary Essential hypertension, benign (CMS/HCC) Essential hypertension, benign Degeneration of intervertebral disc of lumbar region with discogenic back pain Parkinson disease, symptomatic (CMS/HCC) Paralysis agitans Immunodeficiency due to conditions classified elsewhere ([facility]/HCC) Strain of calf muscle, subsequent encounter- Primary documented in this encounter [facility]ocument[facility] Family History No Family History Records FoundNo Family History Records FoundNo Family History Records FoundNo Family History Records FoundNo Family History Records FoundNo Family History Records FoundNo Family History Records FoundNo Family History Records FoundNo Family History Records Found Advance Directives No Advanced Directives Records FoundDocuments on File Type Date Recorded Patient Console Attendant Expl anation Living Will 06/20/2021 9:38 AM Durable Power of Application Manager 06/20/2021 9:37 AM Reason for Referral Specialty Diagnoses / Procedures Referred By El chaves Referred To Contact Diagnoses PD (Parkinson's disease) (HCC) Dysarthria Procedures PROVIDER ORDERED FOLLOW UP OFFICE/OUTPATIENT [facility] 60-74 MINUTES Donald Alberts DO [address] [place] [address] Referral ID Status Reason Start Date Expiration Date V isits Requested Visits Authorized [id number] Pending Review 12/04/2022 03/04/2023 1 1 Specialty Diagnoses / Procedures Referred By El chaves Referred To Contact MR IMAGING Diagnoses PD (Parkinson's disease) (HCC) Dysarthria Procedures MRI BRAIN WO IVCON MRI BRAIN BRAIN STEM W/O CONTRAST MATERIAL Donald Alberts DO [address] [place] [address] Mr Imaging Referral ID Status Reason Start Date Expiration Date Visits Requested Visits Authorized [id number] Authorized Auto-Generat ed Referral 06/06/2022 07/06/2023 1 1 Specialty Diagnoses / Procedures Referred By El chaves Referred To Contact Diagnoses PD (Parkinson's disease) (HCC) Procedures PROVIDER ORDERED FOLLOW UP OFFICE/OUTPATIENT [facility] MDM 60-74 MINUTES Donald Alberts, DO [address] [place] [address] Referral ID Status Reason Start Date Expiration Date V isits Requested Visits Authorized [id number] Pending Review 06/07/2023 09/05/2023 1 1 Specialty Diagnoses / Procedures Referred By El chaves Referred To Contact [facility] Diagnoses PD (Parkinson's disease) (HCC) Sialorrhea Hypophonia Procedures CONSULT TO SPEECH THERAPY OFFICE/OUTPATIENT [facility] 60-74 MINUTES Donald Alberts, DO [address] [place] [id number] [facility] [place] [id number] Referral ID Status Reason Start Date Expiration Date Visits Requested Visits Authorized [id number] Pending Review Auto-Generat ed Referral 12/05/2022 12/05/2023 1 1 Specialty Diagnoses / Procedures Referred By El chaves Referred To Contact MR IMAGING Diagnoses PD (Parkinson's disease) (HCC) Dysarthria Procedures MRI BRAIN WO IVCON MRI BRAIN BRAIN STEM W/O CONTRAST MATERIAL Donald Alberts, DO [address] [place] [phone] Mr Imaging [place] [address] Referral ID Status Reason Start Date Expiration Date V isits Requested Visits Authorized [id number] Closed Auto-Generate d Referral 06/06/2022 07/06/2023 1 1 Specialty Diagnoses / Procedures Referred By El chaves Referred To Contact Diagnoses Parkinson's disease without dyskinesia or fluctuating manifestations (HCC) Procedures PROVIDER ORDERED FOLLOW UP OFFICE/OUTPATIENT [facility] 60 MINUTES Donald Alberts, DO [address] [place] [address] Referral ID Status Reason Start Date Expiration Date V isits Requested Visits Authorized [id number] Authorized 12/16/2024 03/16/2025 1 1 Specialty Diagnoses / Procedures Referred By El chaves Referred To Contact [facility] Diagnoses 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) Procedures CONSULT TO SPEECH THERAPY OFFICE/OUTPATIENT [facility] 60 MINUTES Donald Alberts DO [address] [place] [address] [facility] [place] [address] [place] [address] Referral ID Status Reason Start Date Expiration Date Visits Requested Visits Authorized [id number] Pending Review Auto-Generat ed Referral 4 06/18/2025 1 1 Additional Source Comments (unrecognized sect ion and content) No Status Records FoundNo Status Records FoundNo Status Records FoundNo Status Records FoundNo Status Records FoundNo Status Records FoundNo Status Records FoundNo Status Records FoundNo Status Records Found INFORMATION SOURCE (unrecogn ized section and content) DATE CREATED AUTHOR 03/26/2020 [facility] DATE CREATED AUTHOR AUTHOR'S ORGANIZ ATION 11/22/2020 [facility] DATE CREATED AUTHOR AUTHOR'S ORGANIZ ATION [facility]/04/2023 [facility] DATE CREATED AUTHOR AUTHOR'S ORGANIZ ATION 06/17/2023 [facility] DATE CREATED AUTHOR AUTHOR'S ORGANIZ ATION 05/20/2024 [facility] DATE CREATED AUTHOR AUTHOR'S ORGANIZ ATION 05/26/2024 [facility] DATE CREATED AUTHOR AUTHOR'S ORGANIZ ATION 07/17/2024 [facility] DATE CREATED AUTHOR AUTHOR'S ORGANIZ ATION 07/18/2024 [facility] DATE CREATED AUTHOR AUTHOR'S ORGANIZ ATION 09/08/2024 [facility] EPIC Source Comments (unrecognize d section and content) In the event this informatio n is protected by the Federal Confidentiality of Alcohol and Drug Abuse Patient Records regulations: The Federal rules restrict any use of the information to criminally investigate or prosecute any alcohol or drug abuse patient.[facility] the event this information is protected by the Federal Confidentiality of Alcohol and Drug Abuse Patient Records regulations: The Federal rules restrict any use of the information to criminally investigate or prosecute any alcohol or drug abuse patient.[facility] the event this information is protected by the Federal Confidentiality of Alcohol and Drug Abuse Patient Records regulations: The Federal rules restrict any use of the information to criminally investigate or prosecute any alcohol or drug abuse patient.[facility] the event this information is protected by the Federal Confidentiality of Alcohol and Drug Abuse Patient Records regulations: The Federal rules restrict any use of the information to criminally investigate or prosecute any alcohol or drug abuse patient.[facility] the event this information is protected by the Federal Confidentiality of Alcohol and Drug Abuse Patient Records regulations: The Federal rules restrict any use of the information to criminally investigate or prosecute any alcohol or drug abuse patient.[facility] the event this information is protected by the Federal Confidentiality of Alcohol and Drug Abuse Patient Records regulations: The Federal rules restrict any use of the information to criminally investigate or prosecute any alcohol or drug abuse patient.[facility] the event this information is protected by the Federal Confidentiality of Alcohol and Drug Abuse Patient Records regulations: The Federal rules restrict any use of the information to criminally investigate or prosecute any alcohol or drug abuse patient.[facility] the event this information is protected by the Federal Confidentiality of Alcohol and Drug Abuse Patient Records regulations: The Federal rules restrict any use of the information to criminally investigate or prosecute any alcohol or drug abuse patient.[facility] the event this information is protected by the Federal Confidentiality of Alcohol and Drug Abuse Patient Records regulations: The Federal rules restrict any use of the information to criminally investigate or prosecute any alcohol or drug abuse patient.[facility] the event this information is protected by the Federal Confidentiality of Alcohol and Drug Abuse Patient Records regulations: The Federal rules restrict any use of the information to criminally investigate or prosecute any alcohol or drug abuse patient.[facility] the event this information is protected by the Federal Confidentiality of Alcohol and Drug Abuse Patient Records regulations: The Federal rules restrict any use of the information to criminally investigate or prosecute any alcohol or drug abuse patient.[facility] the event this information is protected by the Federal Confidentiality of Alcohol and Drug Abuse Patient Records regulations: The Federal rules restrict any use of the information to criminally investigate or prosecute any alcohol or drug abuse patient.[facility] the event this information is protected by the Federal Confidentiality of Alcohol and Drug Abuse Patient Records regulations: The Federal rules restrict any use of the information to criminally investigate or prosecute any alcohol or drug abuse patient.[facility] the event this information is protected by the Federal Confidentiality of Alcohol and Drug Abuse Patient Records regulations: The Federal rules restrict any use of the information to criminally investigate or prosecute any alcohol or drug abuse patient.[facility] the event this information is protected by the Federal Confidentiality of Alcohol and Drug Abuse Patient Records regulations: The Federal rules restrict any use of the information to criminally investigate or prosecute any alcohol or drug abuse patient.[facility] Reason for Visit (unrecogniz ed section and [...] MDM 60-74 MINUTES Donald Alberts, DO [address] [place] [address] Referral ID Status Reason Start Date Expiration Date V isits Requested Visits Authorized [id number] Pending Review 12/04/2022 03/04/2023 1 1 Reason Onset Date Comments Refill Request 02/19/2023 Reason Comments Abdominal Pain Pain goes from back to stomach Reason Onset Date Comments Refill Request 11/03/2023 Reason Comments Established Patient Follow Up Parkinson's Disease Specialty Diagnoses / Procedures Referred By Lilyac t Referred To Contact CARDIOLOGY Diagnoses Parkinson's disease without dyskinesia or fluctuating manifestations (HCC) Procedures PROVIDER ORDERED FOLLOW UP OFFICE/OUTPATIENT [facility] 60-74 MINUTES Donald Alberts, DO [address] [place] [id number] [facility] [address] [place] [address] Referral ID Status Reason Start Date Expiration Date V isits Requested Visits Authorized [id number] Authorized 07/29/2023 07/28/2024 99 99 Specialty Diagnoses / Procedures Referred By El chaves Referred To Contact MR IMAGING Diagnoses PD (Parkinson's disease) (HCC) Dysarthria Procedures MRI BRAIN WO IVCON MRI BRAIN BRAIN STEM W/O CONTRAST MATERIAL Donald Alberts DO [address] [place] [address] Mr Imaging [place] [address] Referral ID Status Reason Start Date Expiration Date V isits Requested Visits Authorized [id number] Closed Auto-Generate d Referral 06/06/2022 07/06/2023 1 1 Reason Comments Follow-up Reason Comments Follow-up 6 m Reason Comments Follow Up Parkinson's Disease Fall January 30 2024 patient froze and fell, fracturing sternum Reason Comments Nail care Herrera Wetzel is a 78 y.o. male who presents for DM Foot Care PCP: Dr. Hoang PRICE 06/01/2024, A1C: 9.2, BS: 167.SS 10.5 Reason Comments Nail care Herrera Wetzel is a 78 y.o. male who presents for DM Foot Care PCP: Dr. Hoang PRICE 03/05/2024, A1C: 9.2, BS: 187.SS 10.5 Care Teams (unrecognized sec tion and content) [employer]orter Relationship Specialty Start Date End Date MameNathan meneses [address] [place] [address] PCP - General Family Medicine 07/29/20 [employer]ing [employer]ile Sorter Relationship Specialty Start Date End Date Mamegideon Nathan Alonso [address] [place] [address] PCP - General Family Medicine 07/29/20 [employer]ing Tile Sorter Relationship Specialty Start Date End Date Nathan Bolton [address] [place] [address] PCP - General Family Medicine 07/29/20 [employer]ing Tile Sorter Relationship Specialty Start Date End Date Nathan Bolton [address] [place] [address] PCP - General Family Medicine 07/29/20 Ro[employer]ing Tile Sorter Relationship Specialty Start Date End Date Nathan Bolton [address] [place] [address] PCP - General Family Medicine 07/29/20 Ro[employer]ing Tile Sorter Relationship Specialty Start Date End Date Nathan Bolton [address] [place] [address] PCP - General Family Medicine 07/29/20 Ro[employer]ing Tile Sorter Relationship Specialty Start Date End Date Nathan Bolton [address] [place] [address] PCP - General Family Medicine 07/29/20 Ro[employer]ing Tile Sorter Relationship Specialty Start Date End Date Nathan Bolton MD [address] [place] [address] PCP - General Family Medicine 09/10/23 Roofing Tile Sorter Relationship Specialty Start Date End Date Nathan Bolton MD [address] [place] [address] PCP - General Family Medicine 09/10/23 Roofing Tile Sorter Relationship Specialty Start Date End Date Nathan Bolton [address] [place] [address] PCP - General Family Medicine 07/29/20 Ro[employer]ing Tile Sorter Relationship Specialty Start Date End Date Nathan Bolton [address] [place] [address] PCP - General Family Medicine 07/29/20 Ro[employer]ing Tile Sorter Relationship Specialty Start Date End Date Nathan Bolton [address] [place] [address] PCP - General Family Medicine 07/29/20 Ro[employer]ing Tile Sorter Relationship Specialty Start Date End Date Nathan Bolton MD PCP - General Family Medicine 11/09/20 Ro[employer]ing Tile Sorter Relationship Specialty Start Date End Date Nathan Bolton MD [address] [place] [address] PCP - General Family Medicine 09/10/23 Roofing Tile Sorter Relationship Specialty Start Date End Date Nathan Bolton MD [address] [place] [address] PCP - General Family Medicine 09/10/23 Roofing Tile Sorter Relationship Specialty Start Date End Date Nathan Bolton MD [address] [place] [address] PCP - General Family Medicine 09/10/23 Roofing Tile Sorter Relationship Specialty Start Date End Date Nathan Bolton MD [address] [place] [address] PCP - General Family Medicine 07/29/20 Roofing Tile Sorter Relationship Specialty Start Date End Date Nathan Bolton MD [address] [place] [address] PCP - General Family Medicine 07/29/20 Ro[employer]ing Tile Sorter Relationship Specialty Start Date End Date aNthan Bolton MD [address] [place] [address] PCP - General Family Medicine 07/29/20 Ro[employer]ing Tile Sorter Relationship Specialty Start Date End Date Nathan Bolton MD [address] [place] [address] PCP - General Family Medicine 09/10/23 Ro[employer]ing Tile Sorter Relationship Specialty Start Date End Date Nathan Bolton MD [address] [place] [address] PCP - General Family Medicine 09/10/23 Ro[employer]ing Tile Sorter Relationship Specialty Start Date End Date Nathan Bolton MD [address] [place] [address] PCP - General Family Medicine 09/10/23 Roofing Tile Sorter Relationship Specialty Start Date End Date Nathan Bolton MD [address] [place] [address] PCP - General Family Medicine 09/10/23 FOR RECORDS PERTAINING TO PATIENTS WHO [...] BE BASED ON THE PRIMARY CLINICAL RECORDS. [facility] [employer] [facility]. provides no warranty or guarantee of the accuracy or completeness of information in this document.
[2024-09-14 18:54] LABS: Bilirubin Urine NEGATIVE (NEGATIVE); Blood Urine MODERATE (NEGATIVE); Clarity Urine CLEAR (CLEAR); Color Urine LT. YELLOW (YELLOW); Glucose Urine UA >=1000 mg/dL (NEGATIVE); Ketones Urine 15 mg/dL (NEGATIVE); Leukocyte Esterase Urine NEGATIVE (NEGATIVE); Nitrite Urine NEGATIVE (NEGATIVE); Protein Urine NEGATIVE (NEG/TRACE); Urobilinogen Urine 0.2 EU/dL (0.2-1.0); pH Urine 5.5 (5.0-9.0)
[2024-09-14 19:00] LABS: Bacteria Urine NONE SEEN #/HPF (NONE SEEN); Cast Seen? NONE SEEN #/LPF (NONE SEEN); Crystals Seen? None Seen #/HPF (None Seen); Mucus Urine NONE SEEN (NONE SEEN); Squamous Epithelial Cell Urine NONE SEEN #/LPF (NONE/RARE); Urine Culture Indicated NO; WBC Urine NONE SEEN #/HPF (NONE SEEN)
--- NOTE | 2024-09-14 20:10 | CT_ITS ---
[address] [address] Patient Name: TASHA NEWBERRY MRN: [id number] date: 1945 Sex: M Assigned Patient Location: ER Current Patient Location: Accession/Order Number: [id number] Exam Date: 09/14/2024 20:28 Report Date: 09/14/2024 21:32 At the request of: KAMALJIT SAUCEDO Procedure: CT abdomen pelvis wo con EXAM: CT abdomen pelvis wo con HISTORY: hematuria COMPARISON: 11/09/2019 TECHNIQUE: CT of abdomen and pelvis without intravenous contrast. Dose reduction techniques were achieved by using automated exposure control and/or adjustment of mA and/or kV according to patient size and/or use of iterative reconstruction technique. FINDINGS: Limited evaluation of the viscera/organs and vasculature without intravenous contrast. TUBES AND IMPLANTS: None. LOWER CHEST: Coronary artery calcifications. Small hiatal hernia. ABDOMEN and PELVIS ABDOMINAL WALL AND SOFT TISSUES: Unremarkable. BONES: Osteopenia. Multilevel degenerative changes of the spine. No suspicious lesions. ARTERIES: Incompletely evaluated. Moderate aortoiliac calcification with a 2.7 centimeter infrarenal aortic aneurysm. VEINS: Incompletely evaluated. LYMPH NODES: Unremarkable. PERITONEUM/ RETROPERITONEUM: Unremarkable. BOWEL: No obstruction. Mild to moderate diverticulosis APPENDIX: Not identified. No inflammatory changes in its expected location. LIVER: Subcentimeter right lobe hypodensity to characterize. Steatosis. GALLBLADDER: Unremarkable. BILE DUCTS: Not dilated SPLEEN: Unremarkable. PANCREAS: Unremarkable. ADRENALS: Unremarkable. KIDNEYS/ URETERS: Nonobstructing right renal calculi measuring approximately 4 millimeters. Nonobstructing left renal calculus measuring approximately 3 millimeters. Small left renal cyst. REPRODUCTIVE ORGANS: Moderate prostatomegaly with posterior and inferior hypodensity which may represent fluid URINARY BLADDER: Mild to moderate wall thickening CT/CT abdomen pelvis wo con IMPRESSION: 1. Mild to moderate wall thickening of the bladder. Moderate prostatomegaly with posterior-inferior hypodensity which may represent a fluid collection. Correlate for lower urinary tract infection. 2. Nonobstructing right renal calculi measuring approximately 4 millimeters. Nonobstructing left renal calculus measuring approximately 3 millimeters. 3. Hepatic steatosis. 4. Mild to moderate diverticulosis. 5. 2.7 centimeter infrarenal aortic aneurysm. 6. Small hiatal hernia. Electronically authenticated by: RAHEEL MCCONNELL Date: 09/14/2024 21:32
--- NOTE | 2024-09-14 20:30 | ED_ITS ---
HPI HPI - General Adult General Chief complaint: Urogenital-Male Stated complaint: PELVIC PAIN, BLOOD IN URINE Time Seen by Provider: 09/14/24 20:23 Source: patient Mode of arrival: walk-in Limitations: no limitations History of Present Illness HPI narrative: 79-year-old male presents to the emergency department for left flank pain and hematuria. It feels like when he had a kidney stone before. The pain started this afternoon and there was no injury. He has no pain on the right side. No fever or vomiting. Related Data Home Medications ?Medication ?Instructions ?Recorded ?Confirmed carbidopa 25 mg-levodopa 100 mg 1.5 tab PO .4 times per day 02/07/23 12/03/23 tablet glipizide 5 mg tablet 5 mg PO DAILY 02/07/23 12/03/23 meloxicam 7.5 mg tablet 7.5 mg PO DAILY 02/07/23 12/03/23 metoprolol succinate 50 mg 25 mg PO DAILY 02/07/23 12/03/23 tablet,extended release 24 hr ramipril 1.25 mg capsule 1.25 mg PO DAILY 02/07/23 12/03/23 rasagiline 1 mg tablet 1 mg PO DAILY 02/07/23 12/03/23 simvastatin 40 mg tablet 40 mg PO .QHS 02/07/23 12/03/23 Previous Rx's ?Medication ?Instructions ?Recorded cephalexin 500 mg capsule 500 mg PO Q8H 5 days #15 caps 02/07/23 methocarbamol 500 mg tablet 500 mg PO TID #12 tabs 12/03/23 oxycodone-acetaminophen 5 mg-325 1 tab PO Q8H PRN pain #9 tabs 02/02/24 mg tablet (Percocet) cephalexin 500 mg capsule 500 mg PO TID 7 days #21 caps 09/14/24 Allergies Allergy/AdvReac Type Severity Reaction Status Date / Time No Known Drug Allergies Allergy Verified 07/18/23 12:18 Opioid HPI Opioid Management Most Recent Opioid Data: Last Pain Scale 5 09/14/24 20:22 09/14/24 Last ED Pain Assessment 09/14/24 20:22 Review of Systems ROS Narrative A ten point review of systems is negative except as noted above. PFSH PFSH Social History Smoking status: Never smoker Little interest or pleasure in doing things: not at all Feeling down, depressed, or hopeless: not at all Exam Narrative Exam Narrative: Nurses note and vital signs reviewed and patient is not hypoxic. General: The patient appears in no apparent distress. Patient is resting comfortably on cart. Skin: Warm, dry, no pallor noted. There is no rash noted. Head: Normocephalic, atraumatic Eye: Normal conjunctiva, no drainage Ears, Nose, Mouth, and Throat: oral mucosa is moist. Nares patent. Cardiovascular: Regular Rate and Rhythm Respiratory: Patient is in no distress, no accessory muscle use, lungs are clear to auscultation, no wheezing, rales or rhonchi Back: non-tender, no CVA tenderness bilaterally to percussion. No bruise or rash GI: Soft nontender Musculoskeletal: The patient has no evidence of calf tenderness, symmetrical pulses noted bilaterally Neurological: Awake and alert Psychiatric: Cooperative Constitutional Vital Signs, click to edit/add: Last Vital Signs Temp 97.6 F 09/14/24 18:10 Pulse 89 09/14/24 18:10 Resp 18 09/14/24 18:10 BP 137/75 09/14/24 18:10 Pulse Ox 99 09/14/24 18:10 O2 Del Method Room Air 09/14/24 18:10 Course Vital Signs Vital signs: Vital Signs Temperature 97.6 F 09/14/24 18:10 Pulse Rate 89 09/14/24 18:10 Respiratory Rate 18 09/14/24 18:10 Blood Pressure 137/75 09/14/24 18:10 Pulse Oximetry 99 09/14/24 18:10 Oxygen Delivery Method Room Air 09/14/24 18:10 Temperature 97.6 F 09/14/24 18:10 Pulse Rate 89 09/14/24 18:10 Respiratory Rate 18 09/14/24 18:10 Blood Pressure 137/75 09/14/24 18:10 Pulse Oximetry 99 09/14/24 18:10 Oxygen Delivery Method Room Air 09/14/24 18:10 Medical Decision Making MDM Narrative Medical decision making narrative: CT scan shows a stone in each kidney but no ureteral or bladder stones. He seems to be feeling improved and the possibility that he passed a small stone was discussed with the patient and his . He has microscopic hematuria and is placed on Keflex. He will follow-up with his urologist. Treatment diagnosis and follow-up were discussed with the patient and his . Differential Diagnosis Differential Diagnosis: Kidney stone, renal colic, UTI Lab Data Lab results reviewed: Yes I reviewed the patient's lab results Labs: Lab Results 09/14/24 Range/Units 18:21 Urine Color Lt. yellow (YELLOW) Urine Clarity Clear (CLEAR) Urine pH 5.5 (5.0-9.0) Ur Specific [place] 1.010 (1.005-1.025) Urine Protein Negative (NEG/TRACE) mg/dL Urine Glucose (UA) >=1000 A (NEGATIVE) mg/dL Urine Ketones 15 A (NEGATIVE) mg/dL Urine Occult Blood Moderate A (NEGATIVE) Urine Nitrite Negative (NEGATIVE) Urine Bilirubin Negative (NEGATIVE) Urine Urobilinogen 0.2 (0.2-1.0) EU/dL Ur Leukocyte Esterase Negative (NEGATIVE) Urine RBC 10-20 A (0-2) #/HPF Urine WBC None seen (NONE SEEN) #/HPF Ur Squamous Epith Cells None seen (NONE/RARE) #/LPF Urine Crystals None seen (None Seen) #/HPF Urine Bacteria None seen (NONE SEEN) #/HPF Urine Casts None seen (NONE SEEN) #/LPF Urine Mucus None seen (NONE SEEN) Ur Culture Indicated? No Imaging Data CT scan - abdomen: Radiologist's impression: ITS Impressions Abdomen/Pelvis CT 09/14/24 20:10 IMPRESSION: 1. Mild to moderate wall thickening of the bladder. Moderate prostatomegaly with posterior-inferior hypodensity which may represent a fluid collection. Correlate for lower urinary tract infection. 2. Nonobstructing right renal calculi measuring approximately 4 millimeters. Nonobstructing left renal calculus measuring approximately 3 millimeters. 3. Hepatic steatosis. 4. Mild to moderate diverticulosis. 5. 2.7 centimeter infrarenal aortic aneurysm. 6. Small hiatal hernia. Electronically authenticated by: RAHEEL MCCONNELL Date: 09/14/2024 21:32 Discharge Plan Discharge Chief Complaint: Urogenital-Male Clinical Impression: Hematuria, Left flank pain Patient Disposition: Home, Self-Care Time of Disposition Decision: 21:46 Condition: Good Mode of Transportation: Private Vehicle Prescriptions / Home Meds: New cephalexin 500 mg capsule 500 mg PO TID 7 Days Qty: 21 0RF No Action oxycodone-acetaminophen [Percocet] 5-325 mg tablet 1 tab PO Q8H PRN (Reason: pain) Qty: 9 0RF carbidopa-levodopa 25-100 mg tablet 1.5 tab PO .4 times per day glipizide 5 mg tablet 5 mg PO DAILY meloxicam 7.5 mg tablet 7.5 mg PO DAILY metoprolol succinate 50 mg tablet extended release 24 hr 25 mg PO DAILY ramipril 1.25 mg capsule 1.25 mg PO DAILY rasagiline 1 mg tablet 1 mg PO DAILY simvastatin 40 mg tablet 40 mg PO .QHS cephalexin 500 mg capsule 500 mg PO Q8H 5 Days Qty: 15 0RF methocarbamol 500 mg tablet 500 mg PO TID Qty: 12 0RF Print Language: Sammarinese Instructions: Hematuria (ED), Flank Pain (ED) Additional Instructions: Follow-up with Dr. Shafer Referrals: Nathan Hartman MD [Primary Care Provider] - 1 week
[2024-09-14] MEDS: CEPHALEXIN 250 MG CAPSULE PO (21:53)
[2024-09-14 21:58] VITALS: BP 132/80; PULSE 82; TEMP 36.8; O2SAT 98
== END 2024-09-14 21:58 | disposition home or self-care (01) ==
PROVIDERS: Emergency Medicine; Emergency Provider Emergency Medicine; PCP Family Medicine
DX: R31.29 Other microscopic hematuria (principal); R10.9 Unspecified abdominal pain; Z87.442 Personal history of urinary calculi; I71.9 Aortic aneurysm of unspecified site, without rupture
CPT/HCPCS: 74176; 81001; 99284

== ENCOUNTER 2024-09-23 07:28 | Emergency (ER) | payer MEDICARE, SELFPAY ==
[2024-09-23] VITALS (19 sets, daily range): BP systolic 128–139; BP diastolic 77–87; PULSE 73–83; TEMP 36.4; O2SAT 94–99; BMI 20.9
--- NOTE | 2024-09-23 07:38 | ECG_ITS ---
[facility] Test Date: 2024-09-23 Pat Name: TASHA NEWBERRY Department: Room: - Gender: Male [employer] Or Applier: : [id number] Requested By: LAINE BOLTON Order Number: [id number] Reading MD: TILA JASMINE Measurements Intervals [place] Rate: 76 P: -44 NV: 186 QRS: 46 QRSD: 98 T: 38 QT: 402 QTc: 433 Interpretive Statements 1220 Rapid atrial rhythm 2440 Incomplete right bundle branch block 9140 abnormal rhythm ECG Electronically Signed On 09-23-2024 20:28:49 EST by TILA JASMINE
--- OUTSIDE RECORDS SUMMARY | 2024-09-23 07:38 | XMS_ITS | CCD ---
Author Organization [facility] Care Team Providers Care Kier Pleater Name Role Phone Nathan Bolton Primary Care Provider [phone] CASANDRA ., DR NIKHIL Ross Admitting Unavailable GUAJARDO ., DR NIKHIL Ross Attending Unavailable LE .DANIEL Consulting Unavailable NADERER, DR NATHAN Alosno Primary Care Unavailable GUAJARDO ., DR NIKHIL Ross Admitting Unavailable GUAJARDO ., DR NIKHIL Ross Consulting Unavailable GUAJARDO ., DR NIKHIL Ross Attending Unavailable NADERER, DR NATHAN Alonso Primary Care Unavailable NICA HOUSE Consulting Unavailable GUAJARDO ., DR NIKHIL Ross Admitting Unavailable GUAJARDO ., DR NIKHIL Ross Consulting Unavailable NADERER, DR NATHAN Alonso Primary Care Unavailable GUAJARDO ., DR NIKHIL Ross Attending Unavailable ZAHLER, SANIYA Consulting Unavailable SANIYA GARZON Attending Unavailable NADERER, DR NATHAN Alonso Primary Care Unavailable ZAHLTEN, SANIYA Admitting Unavailable ZAHLSANIYA CAAL Consulting Unavailable SANIYA GARZON Attending Unavailable SANIYA [...] Care Unavailable SADAF ., JOANNE Attending Unavailable JOANNE MÁRQUEZ Admitting Unavailable BONNIE, DR AYAZ Meneses Consulting Unavailable HOANG, DR NATHAN Alonso Primary Care Unavailable JOANNE MÁRQUEZ Consulting Unavailable Nathan Bolton Primary Care Provider [phone] DONALD ALBERTS Attending Unavailable NATHAN BOLTON Primary Care Unavailable GOSTKOCECY, DONALD T Referring Unavailable ARISTEO, DONALD T Attending Unavailable NATHAN BOLTON Primary Care Unavailable Nathan Bolton MD Primary Care Provider Nathan Bolton Primary Care Provider [phone] YOBANY GONZALES Referring Unavailable NATHAN BOLTON Primary Care Unavailable YOBANY GONZALES Attending Unavailable NATHAN BOLTON Referring Unavailable NATHAN BOLTON Primary Care Unavailable Nathan Bolton MD Primary Care Provider ARISTEO, DONALD Referring Unavailable ARISTEO, DONALD Attending Unavailable NADERENATHAN Meneses Primary Care Unavailable GOSTKOWSKI, DONALD Attending Unavailable NADERENATHAN Meneses Primary Care Unavailable NATHAN BOLTON Primary Care Unavailable Gostkocecy GARNER, Donald T Attending Unavaila ble Gostkocecy GARNER, Donald T Admitting Unavaila ble NADEREGideon, NATHAN Attending Unavailable NADERER, NATHAN Attending Unavailable NADERER, NATHAN Attending Unavailable RUSAYAZ SAMPSON Attending Unavailable FAWWAD, Attending Unavailable FAWCHICA, Attending Unavailable NADERER, NATHAN Attending Unavailable RUS, AYAZ Alonso Attending Unavailable NADERER, NATHAN Attending Unavailable RUSAYAZ SAMPSON Attending Unavailable Nathan Bolton MD Primary Care Provider [phone] Medications Current Medications Medication Drug Class(es) Dates [...] Take 81 mg by mouth once daily. Active Comment on above: Take 81 mg by mouth once daily. atropine sulfate 10 mg/ml ophthalmic solution (10 sources) Anticholinergic, Cholinergic Muscarinic Antagonist Start: 12-26-2023 take 1-2 drop(s) into the eye(s) once daily atropine 1 % ophthalmic solution Indications: Sialorrhea Use 1-2 drops daily as need for drooling 15 mL 1 06/18/2024 10:25 AM EST 12/26/2023 Active Start: 03-20-2023 End: 12-26-2023 take [...] Inhibitor, Aromatic Amino Acid Start: 12-26-2023 End: 09-15-2025 carbidopa-levodopa (SINEMET) 25-100 mg per tablet Indications: PD (Parkinson's disease) (HCC) Take 2 tablets by mouth four times daily. [Every 3-hours] 540 tablet 3 09/15/2024 09/15/2025 Active Start: 12-05-2022 End: 05-23-2024 take 1.5 [...] times daily. empagliflozin 25 mg oral tablet (11 sources) Sodium-Glucose Cotransporter 2 Inhibitor Start: take 1 tablet by mouth once daily at breakfast empagliflozin (JARDIANCE) 25 mg tablet Take 1 tablet by mouth daily with breakfast. 06/18/2024 Active glipiZIDE 10 mg oral tablet (20 sources) Sulfonylurea Start: take 1 tablet by mouth in the morning glipiZIDE (Glucotrol) 10 MG tablet Indications: Type 2 diabetes mellitus with hyperglycemia, without long-term current use of insulin (CMS/HCC) Take 1 tablet (10 mg) by mouth in the morning and 1 tablet (10 mg) in the evening. Take before meals. 180 tablet 3 02/17/2024 Active Start: 07-01-2023 take 1 tablet by esvin th in the morning glipiZIDE (Glucotrol) 10 [...] hyperglycemia, without long-term current use of insulin (CMS/[facility]) Take 1 tablet (500 mg) by [...] succinate 50 mg extended release oral tablet (20 sources) beta-Adrenergic Feng Start: 10-04-2020 take 1 [...] by mouth in the morning. 0 Active xtuxyjhe-rixm-OX-calcium &mi ns (THERAGRAN-M) 9 mg iron-400 mcg tablet (1 source) qkmimkgc-krgd-CC -calcium &mins (THERAGRAN-M) 9 mg iron-400 mcg tablet Take 1 tablet by mouth in the morning. Active multivit-minerals/FA/lycopen e (ONE-A-DAY MEN'S ORAL) (16 sources) multivit-mineral s/FA/lycopene (ONE-A-DAY MEN'S ORAL) Take by mouth once daily. Active multivit-mineral s/FA/lycopene (ONE-A-DAY MEN'S ORAL) Take by mouth once daily. 0 Active Comment on above: Take by mouth once d aily. omeprazole 40 mg delayed release oral capsule (19 sources) Proton Pump Inhibitor Start: 02-17-2024 take [...] 09/13/2024 Active ramipril 1.25 mg oral capsule (20 sources) Angiotensin Converting Enzyme Inhibitor Start: 02-17-2019 [...] tablet (20 sources) HMG-CoA Reductase Inhibitor Start: 9 simvastatin (ZOCOR) 40 mg tablet 40 mg daily at bedtime. 0 02/17/2019 Active Comment on above: 40 mg daily at bedti me. vitamin e 268 mg oral capsule (20 sources) take 1 capsule by mouth once [...] on above: Take 400 Units by mo ut once daily. Problems Active Problems Problem Classification [...] Translations: [Immunodeficiency due to conditions classified elsewhere (CMS/[facility])] 06-01-2024 Chronic Mycoses (2 sources) Onychomycosis due to dermatophyte ; Translations: [Tinea unguium] 07-07-2024 Episodic Osteoarthritis (15 sources) Unspecified osteoarthritis, unspecified site; Translations: [Degenerative joint disease involving multiple joints] Onset: 08-31-2022 09-10-2023 Chronic Other acquired deformities (1 source) Other forms of scoliosis, lumbar region; Translations: [OTHER FORMS SCOLIOSIS LUMBAR REGION] Onset: 05-18-2022 Chronic Other aftercare (1 source) Other residential (current) drug therapy; Translations: [OTH JAIL CURRENT DRUG THERAPY] Onset: 12-15-2022 Episodic Other aftercare (1 source) penitentiary (current) use of aspirin; Translations: [BACKSIDE GRINDER CURRENT USE OF ASPIRIN] Onset: 12-15-2022 Episodic Other aftercare (1 source) penitentiary (current) use of oral hypoglycemic drugs; Translations: [JAIL USE ORAL HYPOGLYCEMIC DX] Onset: 12-15-2022 Episodic [...] 09-10-2023 Episodic Diseases of mouth; excluding dental (15 sources) Excessive salivation; Translations: [Disturbances of salivary [...] current use of drug therapy; Translations: [Other residential (current) drug therapy] Onset: 12-02-2023 12-02-2023 Episodic Other aftercare (1 source) Patient encounter status; Translations: [Other residential (current) drug therapy] Onset: 12-02-2023 12-02-2023 Episodic [...] 12-21-2020 09-10-2023 Episodic Other upper respiratory disease (12 sources) Hypophonia; Translations: [Other voice and resonance disorders] Onset: 12-05-2022 Episodic Other upper respiratory disease (1 source) Other voice and resonance disorders; Translations: [Hypophonia] Onset: 12-05-2022 Episodic Other upper respiratory disease (6 sources) Hypokinetic parkinsonian dysphonia; 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)] Onset: 10-07-2019 06-18-2024 Episodic Residual codes; unclassified (16 sources) H/O: steroid therapy; Translations: [Personal history of systemic steroid therapy] Onset: 10-07-2019 10-07-2019 Episodic Spondylosis; intervertebral disc disorders; other back problems (11 sources) Chronic low back pain; Translations: [Chronic midline low back pain without sciatica] Onset: 12-11-2023 12-11-2023 Episodic Unclassified (1 source) LOW BACK PAIN, UNSPECIFIED; Translations: [LOW BACK PAIN, UNSPECIFIED] Onset: 05-15-2022 Results Test Name Value Interpretation Reference Range Facility Provider Orderson 07-15-2024 Provider Orders [id number] #[id number] [facility] 07-14-2024 [facility] Telephone (NRESAV) HERRERA WETZEL ([id number]) 1945 M Date Time Provider Department 07/14/24 DONALD ALBERTS During your visit today, we recorded the following information about you: Kathleen Flanagan LPN 07/14/2024 3:15 PM Addendum 07/14/2024 Debora MIR received from [facility]. Dr. Alberts reviewed and signed. POC securely [...] Encounter Status:Closed by KATHLEEN FLANAGAN on 07/14/24 [facility] Coding Summaryon 06-30-2024 Coding Summary HTMLBase 64 TqbmvtwoOVf7nNm+PGhl YWQ+OV7TDAAqY74qhOXv uG0vL4QYPYfZXrmvDMCT HMtGDfLkgwZlZK7ruWGy ZXJu IC8+FN0kISRgFnuahQBg s6C0hHQ1M33vtj9uJXqm aFX3FRAsJnRukmuzk8yc aSk2IRwdDjbxYqVx SKLjgR80CWL7mH06Vc32 tVMgfRFag4dqmBa0LiLi TLBaUKA4aCakGPggc2Dx LVYoS22upYFlt5D5 IGNvbGxhcHNlOyBlbXB0 oZ8aNWlqllchm3wcfryo Gab5pm73wWKvk3H3gVW8 E0ZxsfC0WIJixYPd DikxcKEAeV7lsmavg3mi raxkNpXiRVVbRLl0AUo7 CZYieFkhKdGwBK26HLM3 INPtnkVeN2VqQDJe tPbeLiI3g3D4Hi3MJ3NK QjgzP2RJYOHDUBjonCS+ RI21ze27B0NeKtzlKmg2 FQZgTBH9mLD9tE2y IOLaTCnbk9T8sAI1L0Ux bsXwkw1ub7mqPEMfDGlg G87jxJCof3P3FRBqoQJ5 PQYkgQkeCoWmcU49 Oyc+JQMeeXsqb6RmTwqy v9sfo9valBy9WvifYLSd rwBruXjzBFZ3t1OvUw9m CJIfkHD1qGA8iY1k SnDrHaY1CYnlG319KfMe tQEvIxlcZ44wH5GaoUJ+ CBMzIcy0TCGzuIbzVZ2w F8HbUKKjudcgySPr uYyxIA1yECNilcarOSQv yE6vZPPhN3k4WcAeNnS3 COpuV2IiKUSovkxaCc84 dO9hYxKyDhW6MMdk B3UegiE0YXJiyFVaQHyu ANE6B28vr6M9MFUhDAFd GFF0fQC6xU6yfTnxrbpx bGVmdDsgdmVydGlj APkjJWbnG725MNQcfHra PkNvZGluZyBEYXRlOiAg MTIvMDMvMjAyNDwvdGQ+ BEEbGTC5lMlnVSOm mFIxIPnbQh3doGjaeFka MX4fMCDjsvxhTNYrgN1f QZDvbAGnmHbiMD7jPZOd wjyug069VlVuBDA1 HYWokWLhV9CkdC1nWmRm UOPiKGOnT9NpyYPyURqb X497PMwbLsY2JPNkieGk H3ScKRQsmYuePtZ3 x3V7Ay8Bq7BpaijwF2Em eNLeQcGzTdrmVXh1T6Ae PjwvdHI+FC22ISHjKF29 CVo8PCY8cEqzWYkh YNMjB4KghY9tAvDhYGAn ZGRkOyc+PHRhYmxlIHdp ZHRoPScxMDAlJyBzdHls VM9lQb6dIZShSOZx eRslhDIhTqMcr2dsBZGc GNgcCU7llCdgC0CtnFP8 IPBtm7m4Kz32N47aX2Gs dXA+KQGfjDE3sQF1 uB3nSzSxXoN8QLakN946 EqPyqMHeTqucu3yzo2re iXp6QmX3LFUknmNgyTwa KGG3t0DuUy05G23c IHdpZHRoPSIxNSUiIHZh tEfzdn7uhS7mDp0+PGNv aJZ7gIO5aW2rTsVuWhG4 KRglU795LdKrvWPf Igrpr3psp5ubzZl8TmKk UPIzoqXyoEbyGTA2i0Xi Fl45I1KyeAixw3XpLww1 ga95xYOyz5K5fLB3 L3CiCODxhvnfsGXdmBqa NN0mORGzeupeFLIyyP5a FAXfU5c0IlCkMeP8EUoy A6EnjaX9SJLjxOGh DIAnrFIBlT3yyxsap1pl ihumSkHaZOGtPZu0GEr3 IOPqfYkeBjYcOTB1IxP0 KEA0qWEyvN7dlUgh befzqN5eXhf+MTU2wOZu eWERVR3sPnbfbTK+PHRk IZG0qGfwLEevZEQpvV2e EPEmH9a6JsTwNvV6 SXdqM4VzwuR0KCGycITo CPUpjXBDgG0fkmqua3nf yrabHaLlMZHzYNy7TFh1 LWFsaWduOiBsZWZ0 DfZ7JXK8iWIlvC7wiHei dzuvuN7nFjd+QmlydGgg TUX4ARt2T1NkGzz8QVOj dCywNS2qxIEgNLcg Th1dgPkrrJprNP9nNHKj xoswj783GjDgk8yjJNQe yIRaVMceRBQ4O61ts6I5 FJIqUCFdMUE3vIU3 eN6hlMhbqvkifMLfaRer ofSmaJpdMPipJQtfG601 JSKglAmbIeEmOZc8K4Vj Ljz3HFPfkYdnJK1j qZKbQUagWp0zgGsgwOnk NY6eEBWbsqtpn988LmLq t1uwPVEvgAGnBXmwDSP8 W74zf5L2VZGoNQTl XWI0pZY1sM8glSqxyuis bGVmdDsgdmVydGljYWwt HDljC757RBWlbSavQaYy mAf9T2AfHcc2FSSv lHalTH4xjCLfRNxxTd3z xFdcgEdfAU4mINNeyoxf l917RvAqa7sdPXXeyNNy QPkfBJZ2T79kc6D6 TIUgXFAuUBL0jZK5xA3e bGlnbjogbGVmdDsgdmVy hNonXMajBRxuS549BDHk cDsnPlBhdGllbnQg UPqdUPo1Q3MfPpumjDL+ MO53CUEcRD62yZDecKUn q6azeKa1LtVvBLNnCRP2 zBxbUHxfq5BkKCSe E95hbYXpe3W1BZUssMuj iDAbUfRsrGA9cM7tLIsd jnlxk1mattqrSeogv8ek bn50dI00S86iEZti ZHRoPSIzMCUiIHZhbGln qp4bmB9qZt8+PGNvbCB3 fEU3iN6wNAVyLcJ5DBza B422TcEjcTIiVyec n8lzz0fhfXr5TlI5VBCz zqPudLwcYAZ4h9ItMz62 D48mYFirUFFoZQOcTHAe EOMndGbikf0rqO3c Ii8+WXVzvDP8bQF4uB9u LmArJtZ6PRhsO585TsXd aRTyWlymC60tA0MgqXS+ NCEoWyv3SAGgvTvp WE1ddKQwIWryIp2xPWZ7 WgQaKfNeQLwhP4KkOJKs msnsagibfOZ8XRUfVUIz xN38Tw1vlPltRLHk gJVWbL7lpdeeq9dvecgv NqPfGXBjACy3CSj4DWJe eWxiCcSiGNU4GgD6JHS2 rXMwgL0baOfvmjks rJ2pK1GuPDHfwbaiYg07 cJ9lJzLwSrP8AAweUdb+ DIGYQETQTUvbY4CRNXYW UkJBTjwvdGQ+PHRk VZD2hQnxNMjtTFUcrY4h AXBvH1r0EyHzGsE9IRbb Z7OlBSWpzbfaKt95bC8v JgPjThI2VYhsA2Kd ejM7DTNhuDChDUohCDE6 K09lh8W6NRCqLKXnNNB7 oBC1dA0ibHlfijjwgCMg dDsgdmVydGljYWwt YCdjA163ALNthYgwCiPx ZqMjEwU1VLn9S8VuTlq7 TDGrrEvxAY0zrFFjSRym Az3poKcqrRjaVN6m ERFjlotyWQUvmV4rHZVz vFGivMyqIG3kUUUxkbmf m879QsRkXHY6QFCrtKOs C7VqlT4mHzFmVMDa YGWgD6UisIWeJDvlO675 QPhbBlA5ISVvtiXkU2Zo PUDkaIycQuL5n5C6Jn69 NyBZZWFyczwvdGQ+ MHOzRMS4cRgpBTruSRTa cJ6pCLQbQ3z0UfTiHrH9 RQtaO5WmCLPmglavKh60 vK8zCkQiOpT4MUdw F8GswcC5AWOdnYIjGYlu WNI7Q93xt7D1WKWfPMXy SUF2dFL0eQ2foXdhjjdz bGVmdDsgdmVydGlj FAwqNWfsW475UWRmjUux Ab9KCGP0N0MoQln2RRTg kLlmLZ6plCWwUJbyXs9m aKcmyRbwBZ1yZHZb khrcNSUthS4uSRNieTBe wOnnOJ9lEBItmaqgw467 IsTrQBV9FKEumMOuF7Sd uA2pOhAbAVArRJTy O9BhoASiBYhgB206VWqg YuQ8EAYlfsGbI5BbRNMv nQgfYlK2k7R4Cu5WHFD5 khEzripqV1E7nSH8 aWVudDwvdGQ+PV91xs06 S3EtTzozEya4ESFkGVJ3 tQH7cU6pAEJbRKgka1B7 cFX4U1WzfxTfhx3w g5oxGPZdCUluS56gjKNd k1M9YUIceTA7ECBcwNaw QjEifM95Ebk+PGNvbGdy b8EsRvxfb3cid3bm uEe9QjAbYCXaqdRmlVyv ZSU0l7UdDd36R93tEEny ZHRoPSIzMCUiIHZhbGln ej5yjG9mMr8+PGNv yFR2jIM0oS0eSaOiRaD8 GSifQ635QlGyyTBlWacy l9tyo0yklBo2AdIoBUJv ddVhfDfaYBH4e0Ko Nf91W2VjoQlcx2SqKpi7 cl52nZBgo7N2uGK5P6Rr MULovxjnrEXqoKrfVO0j TBGzquloURRdnQ2f NODlG4n1PjQiNcK0BFxk H4JbfzW4OLAoyJIsAUPm zLDBlK1quwhzu2vmbvvc XoWeKAPbQBe5QUj2 HVMlnHjdHfDxLJY1IwU4 YGU1pQJinP7bcBxcszzd rL6mGxb+IJa8g6xudEEe VH8ffNL4QM77PU05 yBNtj2T6fUK0I4BxTSBn vrsvglmlyEC7ECSgGJZc lO88Ot0eoPmpJx1zRXLu RRU6IXYsuZYoL4Si oI5jStHbXBXyLVFjI8Bs gUOnIJmeM627ZRwwWaJ2 UZOsysGkC5KhCEXjcBcx NeP8d4D4Ed1YOU32 KO18BG10lVSww7W5mSS3 B2FcBFUrdxmaxkgimXD1 UGFrEIDkhH66Ik1kvCbb Zn0eKYYzARF4RRCq yZMdG6CxuP2iQiYvXQPa YIMwV3CefGRiJRbaJ174 DYftEyP1NFBfauHrS0Yp JOFnjBwoGwV8o4E2 Rs2WBy52IZ57KZ86qLCv x1T8pDE0B3JfSIWurqhh azcplJJ8PEFcSCXvnY56 Nd4smAdoOv3rOXLl PFJ7VSOpkCVtG5TioS6q SoAhRPEgGCXbD1KynVBm JOdsB965ZCgiYdM9EKPz evViN5CdFQWeoNuj RrI5m3N9Vn4LCIbwiue4 O3TzMhjtcBA+VP44DXIu VR26hLXvtWDnu9nllWo9 GlQcNCSoGST4jRrl PSd (more content not included)... [facility] 06-22-2024 Provider Orders [id number] #[id number] [facility] 06-19-2024 [facility] Telephone (NRESAV) HERRERA WETZEL ([id number]) 1945 M Date Time Provider Department 06/19/24 DONALD ALBERTS NRESAV During your visit today, we recorded the following information about you: Kathleen Flanagan LPN 06/19/2024 9:45 AM Signed 06/19/2024 Order sent via secured fax to [employer] at with confirmation of receipt received. Order [...] 12/05/2022 Encounter Status:Closed by KATHLEEN FLANAGAN on 06/19/24 [facility] CNOVon 06-18-2024 CNOV Office Visit (NRESAV) HERRERA WETZEL ([id number]) 1945 M Date Time Provider Department 06/18/24 9:30 AM DONALD ALBERTS NRESAV During your visit today, we recorded the following information about you: Pulse Blood pressure 93/minute 131/75 Donald Alberts, DO 06/18/2024 10:18 AM Signed [facility] - FOLLOW UP EVALUATION Nathan Bolton MD [address] [facility] [address] Dear Nathan Bolton MD: I had the [...] mg onc (more content not included)... Normal [facility] 06-18-2024 [facility] Telephone (NRESAV) HERRERA WETZEL ([id number]) 1945 M Date Time Provider Department 06/18/24 [facility] During your visit today, we recorded the [...] Status:Closed by KATHLEEN FLANAGAN on 06/18/24 Normal [facility] MLR HEMOGLOBIN A1Con 024 Glucose [Mass/Vol] 229 mg/dL [facility] HbA1c (Bld) [Mass fraction] 9.6 % High 4.5 - 6.2 % [facility] Comment on above: ADA RECOMMENDED LIMI T 4.0 - 6.0 ADA THERAPEUTIC TARGET < 7.0 ACTION SUGGESTED > 7.0 Interpretation and review of laboratory results Abnormal [facility] Prostate specific Ag [Mass/V ol]on 05-18-2024 PROSTATIC SPEC ANT 4.50 ng/mL High 0.00-4.00 [facility] Comment on above: Result Comment: The method used for this test is Rhona Chago DXI chemiluminescent immunoassay. Values obtained by different assay methods cannot be used interchangeably. Performed By: #### 2 [id number] #### [facility] ([id number]) [address], [address] [place] [address] CNOVon 12-26-2023 CNOV Office Visit (NRESAV) HERRERA WETZEL ([id number]) 1945 M Date Time Provider Department 12/26/23 1:00 PM DONALD ALBERTS NRESAV During your visit today, we recorded the following information about you: Pulse Blood pressure 74/minute 109/70 Donald Alberts DO 12/26/2023 1:43 PM Signed [facility] - FOLLOW UP EVALUATION Donald Alberts [address] [facility] [address] Nathan Bolton MD [address] [facility] [address] Herrera Wetzel is a 78 year old male with a history of PD. He is seen with his . Interval History Since Last Visit: The patient is having more issues with falling. 4(four) falls. Going to PT and DtD. Better with U-STEP Walking Stabilizer Walker. Wearing-off causes lots of trouble with his walking. More festinating. More zlgkighh-wx-iark (FOG). The patient denies any recent illness [...] Adult) P (more content not included)... Normal [facility] CNOVon 06-14-2023 CNOV Office Visit (NRESFV) HERRERA WETZEL ([id number]) 1945 M Date Time Provider Department 06/14/23 3:00 PM DONALD ALBERTS NRESFV During your visit today, we recorded the following information about you: Pulse Blood pressure Weight Height 72/minute 118/61 76.1 kg 1.778 m Donald Alberts, DO 06/14/2023 3:34 PM Signed [facility] - FOLLOW UP EVALUATION Nathan Bolton MD [address] [place] [address] Herrera Wetzel is a 77 year old male with a history of PD. He is seen with his . Interval History Since Last Visit: The patient had a swallowing test in late november 2022 - no issues other than more focus on swallowing was made to the patient. He is going to DEPARTMENT MGR still. 1 fall in November o/w doing [...] 72 Ht (more content not included)... Normal [facility] CNOVon 12-05-2022 CNOV Office Visit (NRESFV) ROHITHHERRERA Read ([id number]) 1945 M Date Time Provider Department 12/05/22 1:30 PM DONALD ALBERTS NRESFV During your visit today, we recorded the following information about you: Pulse Blood pressure Weight 61/minute 127/72 74.8 kg Donald Alberts DO 12/05/2022 2:18 PM Signed [facility] - FOLLOW UP EVALUATION Donald Alberts [address] [facility] [address] Nathan Bolton MD [address] [facility] [address] Herrera Read Rohith is a 77 year old male with a history of parkinsonism. He is seen with family. Interval History Since Last Visit: He is falling. There is more jyglmvgt-xc-qfki (FOG) - this is the cause of the falls. He has fallen while he is carrying things. Multitasking is a big issue. There were two falls in the post op period following cataract surgery. FOG seems to be worse in the PM. There is drooling at night. The mucous in the back of the throat is the issue. No DEPARTMENT MGR for 6 years. The Sinemet is not [...] no evid (more content not included)... Normal [facility] CBC AUTO DIFFon 11-26-2022 BASO # 0.0 103/ul Normal 0.0-0.1 [facility] Comment on above: Performed By: #### C BC #### [facility] [address] [place] [address] [address] [address] Joaquín Rodriguez Basophils/100 WBC (Bld) 0.4 % Normal 0.2-2.0 [facility] Comment on above: Performed By: #### C BC #### [facility] [address] [place], [place] [address] Dr. Joaquín Rodriguez EO # 0.1 103/ul Normal 0.0-0.7 [facility] Comment on above: Performed By: #### C BC #### [facility] [address] [place] [address] Dr. Joaquín Rodriguez Eosinophils/100 WBC (Bld) 2.6 % Normal 0.9-7.0 [facility] Comment on above: Performed By: #### C BC #### [facility] [address] [place] [address] Dr. Joaquín Rodriguez Erythrocyte distribution width (RBC) [Ratio] 13.2 % Normal 11.0-15.0 [facility] Comment on above: Performed By: #### C BC #### [facility] [address] [place] [address] Dr. Joaquín Rodriguez Hematocrit (Bld) [Volume fraction] 47.0 % Normal 42.0-54.0 [facility] Comment on above: Performed By: #### C BC #### [facility] [address] [place] [address] Dr. Joaquín Rodriguez Hemoglobin (Bld) [Mass/Vol] 15.9 g/dL Normal 14.0-18.0 [facility] Comment on above: Performed By: #### C BC #### [facility] [address] [place] [address] Dr. Joaquín Rodriguez IG # 0.01 10e3/ul Normal 0.00-0.03 [facility] Comment on above: Performed By: #### C BC #### [facility] [address] [place] [address] Dr. Joaquín Rodriguez IG % 0.2 % Normal 0.0-0.5 [facility] Comment on above: Performed By: #### C BC #### [facility] [address] [place] [address] Dr. Joaquín Rodriguez LYMPH # 1.5 103/ul Normal 1.2-3.8 [facility] Comment on above: Performed By: #### C BC #### [facility] [address] [place] [address] Dr. Joaquín Rodriguez Lymphocytes/100 WBC (Bld) 30.0 % Normal 20.5-60.0 [facility] Comment on above: Performed By: #### C BC #### [facility] [address] [place] [address] Dr. Joaquín Rodriguez MANUAL DIFF REQ NO Normal [facility] Comment on above: Performed By: #### C BC #### [facility] [address] [place] [address] Dr. Joaquín Rodriguez MCH (RBC) [Entitic mass] 30.8 pg Normal 25.9-34.0 [facility] Comment on above: Performed By: #### C BC #### [facility] [address] [place] [address] Dr. Joaquín Rodriguez MCHC (RBC) [Mass/Vol] 33.8 g/dL Normal 29.9-35.2 [facility] Comment on above: Performed By: #### C BC #### [facility] [address] [place] [address] Dr. Joaquín Rodriguez MCV (RBC) [Entitic vol] 90.9 fL Normal 80.0-94.0 [facility] Comment on above: Performed By: #### C BC #### [facility] [address] [place] [address] Dr. Joaquín Rodriguez MONO # 0.4 103/ul Normal 0.3-0.8 [facility] Comment on above: Performed By: #### C BC #### [facility] [address] [place] [address] Dr. Joaquín Rodriguez Monocytes/100 WBC (Bld) 7.5 % Normal 1.7-12.0 [facility] Comment on above: Performed By: #### C BC #### [facility] [address] [place] [address] Dr. Joaquín Rodriguez NEUT # 3.0 103/ul Normal 1.4-6.5 [facility] Comment on above: Performed By: #### C BC #### [facility] [address] [place] [address] Dr. Joaquín Rodriguez Neutrophils/100 WBC (Bld) 59.3 % Normal 43.0-75.0 [facility] Comment on above: Performed By: #### C BC #### [facility] [address] [address] [address] Joaquín Rodriguez Platelet mean volume (Bld) [Entitic vol] 11.2 fL Normal 9.5-13.5 [facility] Comment on above: Performed By: #### C BC #### [facility] [address] [address] [address] Joaquín Rodriguez PLT 128 103/ul Critically low 150-450 [facility] Comment on above: Performed By: #### C BC #### [facility] [address] [address] [address] Joaquín Rodriguez RBC 5.17 106/ul Normal 4.70-6.10 [facility] Comment on above: Performed By: #### C BC #### [facility] [address] [place] [address] Dr. Joaquín Rodriguez WBC 5.1 103/ul Normal 4.0-11.0 [facility] Comment on above: Performed By: #### C BC #### [facility] [address] [place] [address] Dr. Joaquín Rodriguez GLYCOHEMOGLOBIN A1Con 2022 ADA RECOMMENDATION SEE BELOW Normal [facility] Comment on above: Result Comment: ADA RECOMMENDED LIMIT 4.0 - 6.0 ADA THERAPEUTIC TARGET < 7.0 ACTION SUGGESTED > 7.0 Performed By: #### A 1C #### [facility] [address] [place] [address] Dr. Joaquín Rodriguez Glucose [Mass/Vol] 235 mg/dL Normal [facility] Comment on above: Performed By: #### A 1C #### [facility] [address] [address] [address] Joaquín Rodriguez HbA1c (Bld) [Mass fraction] 9.8 % Critically high 4.5-6.2 [facility] Comment on above: Performed By: #### A 1C #### [facility] [address] [place] [address] Dr. Joaquín Rodriguez LIPID PROFILEon 11-26-2022 CHOL-HDL RATIO NORM SEE BELOW Normal [facility] Comment on above: Result Comment: 3.3 - 4.4 LOW RISK 4.4 - 7.1 AVERAGE RISK 7.1 - 11.0 MODERATE RISK >11.0 HIGH RISK Performed By: #### L IVER, LIPID, BMP ####[facility] [address] [phone]. Joaquín Rodriguez Cholesterol [Mass/Vol] 145 mg/dL Normal <=200 [facility] Comment on above: Performed By: #### L IVER, LIPID, BMP ####[facility] [address] [phone]. Nailalan Rodriguez Cholesterol in HDL [Mass/Vol] 39 mg/dL Critically low 40-60 [facility] Comment on above: Performed By: #### L IVER, LIPID, BMP ####[facility] [address] [address]Dr. Joaquín Rodriguez Cholesterol in LDL [Mass/Vol] 70.8 mg/dL Normal [facility] Comment on above: Performed By: #### L IVER, LIPID, BMP ####[facility] [address] [phone]. Joaquín Rodriguez Cholesterol.total/Chol esterol in HDL [Mass ratio] 3.7 {ratio} Normal [facility] Comment on above: Performed By: #### L IVER, LIPID, BMP ####[facility] [address] [phone]. Nailalan Rodriguez HDL NORMAL > or = 60 mg/dl - LOW CARDIOVASCULAR RISK <40 mg/dl - HIGH CARDIOVASCULAR RISK Normal [facility] Comment on above: Performed By: #### L IVER, LIPID, BMP ####[facility] [address] [address]Dr. Nailalan Rodriguez LDL CALC NORMAL SEE BELOW Normal [facility] Comment on above: Result Comment: <100 mg/dl OPTIMAL 100 - 129 mg/dl NEAR OR ABOVE OPTIMAL 130 - 159 mg/dl BORDERLINE HIGH 160 - 189 mg/dl HIGH >190 mg/dl VERY HIGH Performed By: #### L IVER, LIPID, BMP ####[facility] [address] [phone]. Joaquín Rodriguez Triglyceride [Mass/Vol] 176 mg/dL Critically high <=150 [facility] Comment on above: Performed By: #### L IVER, LIPID, BMP ####[facility] [address] [phone]. Joaquín Rodriguez VLDL CALC 35.2 mg/dL Normal [facility] Comment on above: Performed By: #### L IVER, LIPID, BMP ####[facility] [address] [phone]. Joaquín Rodriguez LIVER PROFILEon 11-26-2022 Albumin [Mass/Vol] 3.9 g/dL Normal 3.4-5.0 [facility] Comment on above: Performed By: #### L IVER, LIPID, BMP ####[facility] [address] [address]Dr. Joaquín Rodriguez Albumin/Globulin [Mass ratio] 1.0 {ratio} Normal [facility] Comment on above: Performed By: #### L IVER, LIPID, BMP ####[facility] [address] [phone]. Joaquín Rodriguez ALP [Catalytic activity/Vol] 91 U/L Normal 46-116 [facility] Comment on above: Performed By: #### L IVER, LIPID, BMP ####[facility] [address] [phone]. Joaquín Rodriguez ALT [Catalytic activity/Vol] 15 U/L Critically low 16-63 [facility] Comment on above: Performed By: #### L IVER, LIPID, BMP ####[facility] [address] [phone]. Joaquín Rodriguez AST [Catalytic activity/Vol] 29 U/L Normal 15-37 [facility] Comment on above: Performed By: #### L IVER, LIPID, BMP ####[facility] [address] [phone]. Joaquín Rodriguez BILI, CONJUGATED 0.2 mg/dL Normal 0.0-0.2 [facility] Comment on above: Performed By: #### L IVER, LIPID, BMP ####[facility] [address] [address]Dr. Joaquín Rodriguez Bilirubin [Mass/Vol] 0.7 mg/dL Normal 0.2-1.0 [facility] Comment on above: Performed By: #### L IVER, LIPID, BMP ####[facility] [address] [address]Dr. Joaquín Rodriguez Globulin (S) [Mass/Vol] 3.8 g/dL Normal [facility] Comment on above: Performed By: #### L IVER, LIPID, BMP ####[facility] [address] [address]Dr. Joaquín Rodriguez Protein [Mass/Vol] 7.7 g/dL Normal 6.4-8.2 [facility] Comment on above: Performed By: #### L IVER, LIPID, BMP ####[facility] [address] [address]Dr. Joaquín Rodriguez MICROALBUMIN, RAND URon 05-0 mALB 3.5 mg/L Normal <=30.0 [facility] Comment on above: Performed By: #### M ALBR #### [facility] [address] [address] [address] Joaquín Rodriguez PROF CHEM 8 (BAS METB)on Anion gap [Moles/Vol] 10.8 mmol/L Normal [facility] Comment on above: Performed By: #### L IVER, LIPID, BMP ####[facility] [address] [address]Dr. Joaquín Rodriguez Calcium [Mass/Vol] 9.1 mg/dL Normal 8.5-10.1 [facility] Comment on above: Performed By: #### L IVER, LIPID, BMP ####[facility] [address] [address]DrKlaudia Rodriguez Chloride [Moles/Vol] 103 mmol/L Normal 98-107 [facility] Comment on above: Performed By: #### L IVER, LIPID, BMP ####[facility] [address] [phone]. Joaquín Rodriguez CO2 [Moles/Vol] 29.7 mmol/L Normal 21.0-32.0 [facility] Comment on above: Performed By: #### L IVER, LIPID, BMP ####[facility] [address] [address]Dr. Joaquín Rodriguez Creatinine [Mass/Vol] 0.97 mg/dL Normal 0.70-1.30 [facility] Comment on above: Performed By: #### L IVER, LIPID, BMP ####[facility] [address] [address]Dr. Joaquín Rodriguez EGFR-AF TUNISIAN >60 Normal >=60 [facility] Comment on above: Performed By: #### L IVER, LIPID, BMP ####[facility] [address] [place], [place] [address]Dr. Joaquín Rodriguez EGFR-NON AF TUNISIAN >60 Normal >=60 [facility] Comment on above: Performed By: #### L IVER, LIPID, BMP ####[facility] [address] [place], [place] [address]Dr. Joaquín Rodriguez Glucose [Mass/Vol] 261 mg/dL Critically high 74-106 [facility] Comment on above: Performed By: #### L IVER, LIPID, BMP ####[facility] [address] [address]Dr. Joaquín Rodriguez Potassium [Moles/Vol] 4.5 mmol/L Normal 3.5-5.1 [facility] Comment on above: Performed By: #### L IVER, LIPID, BMP ####[facility] [address] [address]Dr. Joaquín Rodriguez Sodium [Moles/Vol] 139 mmol/L Normal 136-145 [facility] Comment on above: Performed By: #### L IVER, LIPID, BMP ####[facility] [address] [address]Dr. Joaquín Rodriguez Urea nitrogen [Mass/Vol] 16.0 mg/dL Normal 7.0-18.0 [facility] Comment on above: Performed By: #### L MAURICIO MOURA BMP ####[facility] [address] [place], [place] [address]HzKlaudia Rodriguez Urea nitrogen/Creatinine [Mass ratio] 16.5 mg/mg Normal [facility] Comment on above: Performed By: #### L MAURICIO MOURA BMP ####[facility] [address] [place], [place] [address]Gs. Joaquín Rodriguez MR Brain WO contraston 06-20 IMPRESSION: No acute findings. No evidence of acute infarction, intracranial hemorrhage or intracranial mass lesion. Tankroom Tender: BIRGIT Transcribe Date/Time: Jun 20 2022 1:55P Dictated by : ANTHONY JONES MD This examination was interpreted and the report reviewed and electronically signed by: ANTHONY JONES MD on Jun 20 2022 2:02PM [facility] DIVISION OF RADIOLOGY * * *Final Report* * * DATE OF EXAM: Jun 20 2022 1:26PM [facility] 0294 - MRI BRAIN WO IVCON / [...] tissues are unremarkable. DIVISION OF RADIOLOGY Provider, [facility] - 06/20/2022 * * *Final Report* * [...] infarction, intracranial hemorrhage or intracranial mass lesion. Tankroom Tender: BIRGIT Transcribe Date/Time: Jun 20 2022 1:55P Dictated by : ANTHONY JONES MD This examination was interpreted and the report reviewed and electronically signed by: ANTHONY JONES MD on Jun 20 2022 2:02PM EST [facility] Radiology Study observation (narrative) [facility] MR Brain WO contrastOrdered By: [facility] Provider on 06-20-2022 [facility] POINT OF CARE GLUCOSEon 04-29 Glucose [Mass/Vol] 180 mg/dL Critically high 74-106 T he [facility] Comment on above: Performed By: #### P OCGLUC ####[facility] [address] [place], [place] [address]Dr. Joaquín Rodriguez Covid-19 PCR (CVDTB)on 04-29 SARS-CoV-2 (COVID-19) RNA AJS+probe Ql (Unsp spec) Not detected Normal NOT DETECTED [facility] Comment on above: Result Comment: This test is not yet approved or cleared by the [place] FDA. When there are no FDA-approved or cleared tests available, and other criteria are met, FDA can make tests available under an emergency access mechanism called an Emergency Use Authorization (EUA). The EUA for this test is supported by the [place] of Health and Human Service's (HHS's) declaration [...] SARS-CoV-2. Performed By: #### C VDTBH #### [facility] [address] [place], [place] [address] Dr. Joaquín Rodriguez GLYCOHEMOGLOBIN A1Con 2021 ADA RECOMMENDATION SEE BELOW Normal [facility] Comment on above: Result Comment: ADA RECOMMENDED LIMIT 4.0 - 6.0 ADA THERAPEUTIC TARGET < 7.0 ACTION SUGGESTED > 7.0 Performed By: #### A 1C #### [facility] [address] [place], [place] [address] Dr. Joaquín Rodriguez Glucose [Mass/Vol] 212 mg/dL Normal [facility] Comment on above: Performed By: #### A 1C #### [facility] [address] [place], [place] [address] Dr. Joaquín Rodriguez HbA1c (Bld) [Mass fraction] 9.0 % Critically high 4.5-6.2 [facility] Comment on above: Performed By: #### A 1C #### [facility] [address] [place], [place] [address] Dr. Joaquín Rodriguez Auth for Release of Medical Recordson 11-21-2020 Auth for Release of Medical Records [id number] #[id number] Normal [facility] Dermatopathologyon 0 Dermatopathology [facility] Dermatopathology Laboratory [address] [place] [id number] DERMATOPATHOLOGY REPORT Name:HERRERA WETZEL [facility] Rec #. [id number] Location: [facility] Date of Procedure: 03/22/2020 Race: [...] None Electronically Signed Out By NADER GALO MD/[facility] By the signature on this report, the individual or group listed as making the Final Interpretation/Diagn osis certifies that they have reviewed this case. Clinical History: Malignant melanoma. Excision. ([place] office) Specimens Submitted As: A: SKIN, RIGHT SUPERIOR LATERAL UPPER BACK Gross Description: Received in formalin is one lozano-brown piece of skin measuring 56 x 21 x 6 mm. The specimen is inked and embedded in toto in four blocks. The tips are in Block 1. mlz/03/23/2020 Normal [facility] Comment on above: Performed By: #### D #### Dermatopathology Dermatopathologyon 0 Dermatopathology Pathologist: NADER GALO MD Date of Procedure: 02/10/2020 Date Received: 02/10/2020 Submitting Physician: SAÚL JHAVERI MD Location: [facility] Copy To/Referring/Attendi ng: HENRIK WHALEN DO FINAL DIAGNOSIS 4 SLIDES, [facility], #[id number] (BX: 01/06/2020) SKIN, RIGHT SUPERIOR LATERAL UPPER [...] melanocytes. The melanocytes stain with antibodies against [place]-1 and SOX-10. The deep margin focally transects the atypical melanocytes. Electronically Signed Out by NADER GALO M.D. CANCER SUMMARY REPORT A. 4 SLIDES, DERMATOPATHOLOGY LABORATORY [facility], #[id number] (BX: 01/06/2020): Procedure: Biopsy, shave Specimen Laterality: [...] None Electronically Signed Out By NADER GALO MD/[facility] Clinical History: 1CM, NEOPLASM OF UNCERTAIN BEHAVIOR VS. SQUAMOUS CELL CARCINOMA VS. SCAR Specimens Submitted As: A: 4 SLIDES, DERMATOPATHOLOGY LABORATORY [facility], #[id number] (BX: 01/06/2020) Gross Description: Received for consultation from Dermatopathology Laboratory [facility] are four slides labeled [id number] (BX: 01/06/2020) along with the corresponding pathology report. Slide/Block Description 4 SLIDES, [id number]. Keep Slides: N Slides Returned: N Personal Consult: N Normal [facility] Comment on above: Performed By: #### D #### Dermatopathology Vital Signs Date Time Vital Sign Value Performing Clinician Facility 09-07-2024 11:24-0500 Body mass index (BMI) [Ratio] 21.31 kg/m2 Nathan Bolton MD Work Phone: [facility] 09-07-2024 11:24-0500 Body temperature 97 [degF] Nathan Bolton MD Work Phone: [facility] 09-07-2024 11:24-0500 Body weight 69.31 kg Nathan Bolton MD Work Phone: [facility] 09-07-2024 11:24-0500 Diastolic blood pressure 88 mm[Hg] Nathan Bolton MD Work Phone: [facility] 09-07-2024 11:24-0500 Heart rate 94 /min Nathan Bolton MD Work Phone: [facility] 09-07-2024 11:24-0500 SaO2% (BldA) [Mass fraction] 98 % Nathan Bolton MD Work Phone: [facility] 09-07-2024 11:24-0500 Systolic blood pressure 130 mm[Hg] Nathan Bolton MD Work Phone: [facility] 07-07-2024 09:36-0500 Body height 180.3 cm Ayaz Santo DPM Work Phone: [facility] 07-07-2024 09:36-0500 Body mass index (BMI) [Ratio] 22.04 kg/m2 Ayaz Santo DPM Work Phone: [facility] 07-07-2024 09:36-0500 Body weight 71.67 kg Ayaz Santo DPM Work Phone: [facility] 06-18-2024 09:44-0500 Diastolic blood pressure 75 mm[Hg] Donald Alberts DO Work Phone: [facility] 06-18-2024 09:44-0500 Heart rate 93 /min Donald Alberts DO Work Phone: [facility] 06-18-2024 09:44-0500 Systolic blood pressure 131 mm[Hg] Donald Alberts DO Work Phone: [facility] 06-01-2024 10:20-0500 Body height 180.3 cm Nathan Bolton MD Work Phone: [facility] 06-01-2024 10:20-0500 Body mass index (BMI) [Ratio] 22.04 kg/m2 Nathan Bolton MD Work Phone: [facility] 06-01-2024 10:20-0500 Body temperature 97.11 [degF] Nathan Bolton MD Work Phone: [facility] 06-01-2024 10:20-0500 Body weight 71.67 kg Nathan Bolton MD Work Phone: [facility] 06-01-2024 10:20-0500 Diastolic blood pressure 64 mm[Hg] Nathan Bolton MD Work Phone: [facility] 06-01-2024 10:20-0500 Heart rate 94 /min Nathan Bolton MD Work Phone: [facility] 06-01-2024 10:20-0500 Respiratory rate 18 /min Nathan Bolton MD Work Phone: [facility] 06-01-2024 10:20-0500 SaO2% (BldA) [Mass fraction] 97 % Nathan Bolton MD Work Phone: [facility] 06-01-2024 10:20-0500 Systolic blood pressure 128 mm[Hg] Nathan Bolton MD Work Phone: [facility] 05-25-2024 14:06-0400 Body height 180.3 cm Yobany Gonzales MD Work Phone: [facility] 05-25-2024 14:06-0400 Body mass index (BMI) [Ratio] 22.32 kg/m2 Yobany Gonzales MD Work Phone: [facility] 05-25-2024 14:06-0400 Body weight 72.58 kg Yobany Gonzales MD Work Phone: [facility] 05-25-2024 14:06-0400 Diastolic blood pressure 73 mm[Hg] Yobany Gonzales MD Work Phone: [facility] 05-25-2024 14:06-0400 Systolic blood pressure 128 mm[Hg] Yobany Gonzales MD Work Phone: [facility] 03-23-2024 10:07-0400 Body height 180.3 cm Ayaz Gal DPM Work Phone: [facility] 03-23-2024 10:07-0400 Body mass index (BMI) [Ratio] 22.32 kg/m2 Ayaz Gal DPM Work Phone: [facility] 03-23-2024 10:07-0400 Body weight 72.58 kg Ayaz Santo DPM Work Phone: [facility] 12-26-2023 13:04-0400 Diastolic blood pressure 70 mm[Hg] Donald Aristeo DO Work Phone: [facility] 12-26-2023 13:04-0400 Heart rate 74 /min Donald Aristeo DO Work Phone: [facility] 12-26-2023 13:04-0400 Systolic blood pressure 109 mm[Hg] Donald Alberts DO Work Phone: [facility] 09-10-2023 11:47-0500 Body height 180.3 cm Nathan Bolton MD Work Phone: [facility] 09-10-2023 11:47-0500 Body mass index (BMI) [Ratio] 23.01 kg/m2 Nathan Bolton MD Work Phone: [facility] 09-10-2023 11:47-0500 Body temperature 97.5 [degF] Nathan Bolton MD Work Phone: [facility] 09-10-2023 11:47-0500 Body weight 74.84 kg Nathan Bolton MD Work Phone: [facility] 09-10-2023 11:47-0500 Diastolic blood pressure 70 mm[Hg] Nathan Bolton MD Work Phone: [facility] 09-10-2023 11:47-0500 Heart rate 89 /min Nathan Bolton MD Work Phone: [facility] 09-10-2023 11:47-0500 SaO2% (BldA) [Mass fraction] 99 % Nathan Bolton MD Work Phone: [facility] 09-10-2023 11:47-0500 Systolic blood pressure 130 mm[Hg] Nathan Bolton MD Work Phone: [facility] 12-05-2022 13:27-0400 Body weight 74.84 kg Donald Alberts DO Work Phone: [facility] 12-05-2022 13:27-0400 Diastolic blood pressure 72 mm[Hg] Donald Alberts DO Work Phone: [facility] 12-05-2022 13:27-0400 Heart rate 61 /min Donald Alberts DO Work Phone: [facility] 12-05-2022 13:27-0400 SaO2% (BldA) [Mass fraction] 99 % Donald Alberts DO Work Phone: [facility] 12-05-2022 13:27-0400 Systolic blood pressure 127 mm[Hg] Donald Alberts DO Work Phone: [facility] 06-06-2022 16:21-0500 Body height 180.3 cm Donald Alberts DO Work Phone: [facility] 06-06-2022 16:21-0500 Body weight 74.39 kg Donald Alberts DO Work Phone: [facility] 06-06-2022 16:21-0500 Diastolic blood pressure 75 mm[Hg] Donald Alberts DO Work Phone: [facility] 06-06-2022 16:21-0500 Heart rate 69 /min Donald Alberts DO Work Phone: [facility] 06-06-2022 16:21-0500 SaO2% (BldA) [Mass fraction] 100 % Donald Alberts DO Work Phone: [facility] 06-06-2022 16:21-0500 Systolic blood pressure 135 mm[Hg] Donald Alberts DO Work Phone: [facility] Encounters Encounter Date Encounter Type Care Provider Facility Start: 09-12-2024 End: 09-15-2024 Refill Donald Alberts DO Work Phone: Neurology Comment on above: Refill Request Start: 09-07-2024 End: 09-07-2024 Bamboo flowsheet Nathan [...] Bamboo flowsheet Ayaz Santo DPM Work Phone: [facility] Start: 07-07-2024 End: 07-07-2024 Patient encounter procedure Ayaz Santo DPM Work Phone: [facility] Comment on above: Dermatophytosis of n ail (Primary Dx); Dystrophic nail; Pain around toenail, right foot; Pain around toenail, left foot Start: 07-07-2024 End: 07-07-2024 ambulatory AYAZ SANTO Not Available Start: 06-29-2024 ambulatory NATHAN BOLTON Facility :[facility] Start: 06-19-2024 End: 06-19-2024 Telephone encounter Donald Alberts DO Work Phone: Neurology Start: 06-18-2024 End: 06-18-2024 Telephone encounter Donald Alberts DO Work Phone: Neurology Start: 06-18-2024 End: 06-18-2024 ambulatory DONALD ALBERTS Facility:[facility] Start: 06-18-2024 End: 06-18-2024 Office outpatient visit 15 minutes Donald Alberts DO Work Phone: Neurology Comment on above: Parkinson's disease without dyskinesia or fluctuating manifestations (HCC) (Primary Dx); Hypokinetic Parkinsonian dysphonia (HCC) Start: 06-08-2024 End: 06-08-2024 Clinisync Result Encounter Nathan Bolton MD Work Phone: [facility] External Department Unsolicited Start: 06-08-2024 End: 06-08-2024 Clinisync Result Encounter Nathan Bolton MD Work Phone: [facility] External Department Unsolicited Start: 06-08-2024 End: 06-08-2024 Orders Only Nathan Bolton MD Work Phone: [facility] Comment on above: Type 2 diabetes elena itus with hyperglycemia, without long-term current use of insulin (CMS/HCC) (Primary Dx) Start: 06-01-2024 End: 06-01-2024 Bamboo flowsheet Nathan Bolton MD Work Phone: [facility] Start: 06-01-2024 End: 06-01-2024 Bamboo flowsheet Nathan Bolton MD Work Phone: [facility] Start: 06-01-2024 End: 06-01-2024 Office outpatient visit 25 minutes Nathan Bolton MD Work Phone: [facility] Comment on above: Type 2 diabetes elena itus with hyperglycemia, without long-term current use of insulin ([facility]/HCC) (Primary Dx); Essential hypertension, benign (CMS/[facility]); Degeneration of intervertebral disc of lumbar region with discogenic back pain; Parkinson disease, symptomatic (CMS/[facility]); Immunodeficiency due to conditions classified elsewhere ([facility]) Start: 06-01-2024 End: 06-01-2024 ambulatory NATHAN BOLTON Not Available Start: 05-25-2024 End: 05-25-2024 Office outpatient visit 15 minutes Yobany Gonzales MD Work Phone: [facility] Comment on above: Elevated PSA (Primar y Dx); Hematuria, gross Start: 05-25-2024 End: 05-25-2024 ambulatory [facility] Start: 05-18-2024 End: 05-18-[address] [facility] Start: 03-23-2024 End: 03-23-2024 Patient encounter procedure Ayaz Santo DPM Work Phone: [facility] Comment on above: Dermatophytosis of n ail (Primary Dx); Dystrophic nail; Pain around toenail, right foot; Pain around toenail, left foot Start: 03-23-2024 End: 03-23-2024 ambulatory AYAZ SANTO Not Available Start: 03-05-2024 End: 03-05-2024 ambulatory NATHAN BOLTON Not Available Start: 02-04-2024 End: 02-04-2024 ambulatory SHAIKH TALAT Not Available Start: 12-26-2023 End: 12-26-2023 ambulatory DONALD ALBERTS Facility:[facility] Start: 12-26-2023 End: 12-26-2023 Office outpatient visit 15 minutes Donald Alberts DO Work Phone: Neurology Comment on above: Parkinson's disease without dyskinesia or fluctuating manifestations (HCC) (Primary Dx); Sialorrhea; PD (Parkinson's disease) (HCC) Start: 12-11-2023 End: 12-11-2023 ambulatory SHAIKH KANUCHICA Not Available Start: 12-05-2023 End: 12-05-2023 ambulatory AYAZ Alonso GAL Not Available Start: 12-02-2023 End: 12-02-2023 ambulatory NATHAN BOLTON Not Available Start: 11-03-2023 Refill Donald xavier DO Work Phone: Neurology Comment on above: Refill Request Start: 09-10-2023 Husam flowsheet Nathan Bolton MD Work Phone: [facility]10[facility] Work Phone: [facility] Start: 09-10-2023 End: 09-10-2023 Office outpatient visit 15 minutes Nathan Bolton MD Work Phone: [facility] Comment on above: Epigastric abdominal pain (Primary Dx) Start: 09-10-2023 End: 09-10-2023 ambulatory NATHAN BOLTON Not Available Start: 06-14-2023 End: 06-14-2023 ambulatory DONALD ALBERTS Facility:[facility] Start: 03-16-2023 ambulatory Donald xavier DO Work Phone: Neurology Comment on above: Botox for excessive saliva for Herrera Wetzel Start: 02-19-2023 Refill Donald xavier DO Work Phone: Neurology Comment on above: Refill Request Start: 12-26-2022 End: 12-26-[address] DOCTOR NICOLE Facility: Start: 12-13-2022 End: 12-13-2022 ambulatory JOANNE TALAVERA . Facility: Start: 12-05-2022 End: 12-05-2022 ambulatory DONALD ALBERTS Facility:[facility] Start: 12-05-2022 End: 12-05-2022 Patient encounter [...] SANIYA GARZON Facility:[facility] Start: 09-10-2022 Refill Donald xavire DO Work Phone: [facility] Comment on above: Refill Request Start: 08-30-2022 End: 08-30-2022 ambulatory SANIYA GARZON Facility:[facility] Start: 06-27-2022 End: 06-28-[address] NIKHIL GUAJARDO . Facility:[facility] Start: 06-22-2022 Telephone encounter Donald gomez DO Work Phone: Neurological [facility] Comment on above: Results (MRI NL) Start: 06-20-2022 End: 06-20-2022 Subsequent hospital visit by physician Mri [facility] Amanda (1.5t) Work Phone: Radiology Comment on above: PD (Parkinson's dise ase) (HCC) [G20] Start: 06-06-2022 End: 06-06-2022 Patient encounter procedure Donald Alberts DO Work Phone: Neurology Comment on above: PD (Parkinson's dise ase) (HCC) (Primary Dx); Dysarthria Start: 05-23-2022 Encounter for preprocedural laboratory examination DR NIKHIL GUAJARDO . [facility] Start: 05-22-2022 End: 05-22-[address] NIKHIL [...] Td Vaccines (2 - Td or Tdap) [facility] Start: 06-24-2026 Diabetes Screening Diabetes Screenin [facility] Start: 09-30-2025 Glaucoma screening Diabetes: R etinopathy Screening [facility] Start: 06-02-2025 End: 06-02-2025 Patient encounter procedure 06/02/2025 1:15 PM EST Office Visit [facility] [address] [place] [address] [facility] [place] [address] Yobany Gonzales MD [address] [place] [address] [facility] Start: 05-25-2025 End: 04-25-2026 Prostatic specific antigen, diagnostic Prostatic specific antigen, diagnostic Lab Routine Elevated PSA Expected: 05/25/2025 (Approximate), Expires: 04/25/2026 [facility] Work Phone: Comment on above: Expected: 05/25/2025 (Approximate), Expires: 04/25/2026 Start: 12-17-2024 End: 12-17-2024 Patient encounter procedure 12/17/2024 1:30 PM EDT Office Visit Neurology [address] [place] [address] Donald Alberts, DO [address] [place] [address] Parkinson's disease without dyskinesia or fluctuating manifestations (HCC) [G20.A1] Neurology Comment on above: Parkinson's disease without dyskinesia or fluctuating manifestations (HCC) [G20.A1] Start: 12-03-2024 Urine screening for protein Diabetes: Urine Protein Screening [facility] Start: 11-30-2024 End: 11-30-2024 Patient encounter procedure 11/30/2024 10:30 AM EDT Office Visit [facility] [address] [place] [phone] Nathan Bolton MD [address] [place] [phone] [facility] Start: 10-21-2024 End: 10-21-2024 Patient encounter procedure 10/21/2024 10:30 AM EDT Procedure Visit [facility] [address] [place] [phone] Ayaz Santo DPJade [address] [place] [address] [facility] Start: 09-07-2024 End: 09-07-2024 Patient encounter procedure 09/07/2024 11:00 AM EST Office Visit [facility] [address] [place] [phone] Nathan Bolton MD [address] [place] [phone] Arrived [facility] Comment on above: Arrived Start: 07-29-2024 Advance Directive Discussion Advance Directive Discussion [facility] Start: 07-07-2024 End: 07-07-2024 Patient encounter procedure [facility] Comment on above: Arrived Start: 06-20-2024 DIABETES SCREEN DIABETES SCREEN [facility] Start: 06-20-2024 Diabetes Screening Diabetes Screenin g [facility] Start: 06-18-2024 End: 06-18-2024 Patient encounter procedure 06/18/2024 9:30 AM EST Office Visit Neurology [id number] [facility] [place] [address] Donald Alberts, DO [address] [place] [address] Return in about 6 months (around 06/27/2024). Neurology Comment on above: Return in about 6 mo nths (around 06/27/2024). Start: 06-05-2024 Hemoglobin A1c measurement Maritza betes: Hemoglobin A1C [facility] Start: 06-01-2024 End: 06-01-2025 Hemoglobin A1c/Hemoglobin.total in Blood Hemoglobin A1c Lab Routine Type 2 diabetes mellitus with hyperglycemia, without long-term current use of insulin ([facility]) Expected: 06/01/2024 (Approximate), Expires: 06/01/2025 [facility] Work Phone: Comment on above: Expected: 06/01/2024 (Approximate), Expires: 06/01/2025 Start: 06-01-2024 End: 06-01-2024 Patient encounter procedure [facility] Comment on above: Arrived Start: 05-20-2024 Adult BMI Screening Adult [facility] Screen ing [facility] Start: 05-20-2024 Tobacco Screening Tobacco Screening [facility] Start: 03-29-2024 Covid-19 Vaccine ( season) Covid-19 Vaccine () [facility] Start: 03-29-2024 Influenza vaccination Influenza Vacc ine (#1) [facility] Start: 12-05-2023 End: 12-05-2023 Patient encounter procedure 12/05/2023 2:45 PM EDT Procedure Visit [facility] [address] [place] [phone] Ayaz Santo [facility] [address] [place], [place] [id number] [facility] Start: 12-02-2023 End: 12-02-2023 Patient encounter procedure 12/02/2023 10:45 AM EDT Office Visit [facility] [address] [place] [phone] Nathan Bolton MD [address] [place] [phone] [facility] Start: 09-24-2023 Hemoglobin A1c measurement Maritza betes: Hemoglobin A1C [facility] Start: 09-10-2023 End: 09-10-2024 RF Upper gastrointestinal tract and Small bowel Single view W contrast PO FL upper GI double contrast w KUB Imaging Routine Epigastric abdominal pain Expected: 09/10/2023, Expires: 09/10/2024 [facility] Comment on above: Expected: 09/10/2023 , Expires: 09/10/2024 Start: 09-10-2023 End: 09-10-2024 US Gallbladder US gallbladder Imaging Routine Epigastric abdominal pain Expected: 09/10/2023, Expires: 09/10/2024 [facility] Work Phone: Comment on above: Expected: 09/10/2023 , Expires: 09/10/2024 Start: 09-10-2023 End: 09-10-2023 Patient encounter procedure 09/10/2023 11:45 AM EST Office Visit [facility] [address] [place] [phone] Nathan Bolton MD [address] [place] [address] Arrived [facility] Comment on above: Arrived Start: 07-29-2023 Advance Directive Discussion Advance Directive Discussion [facility] Start: 07-29-2023 Behavioral Health Screening Behavioral Health Screening [facility] Start: 03-29-2023 Covid-19 Vaccine ( season) Covid-19 Vaccine ( season) [facility] Start: 03-29-2023 Influenza vaccination INFLUENZA (#1) [facility] Start: 08-26-2022 COVID-19 VACCINE (6 - Pfizer series) COVID-19 VACCINE (6 - Pfizer series) [facility] Start: 07-29-2022 ADVANCE DIRECTIVE DISCUSSION ADVANCE DIRECTIVE DISCUSSION [facility] Start: 07-29-2022 DEPRESSION ASSESSMENT DEPRESSION ASS ESSMENT [facility] Start: 07-29-2021 ADVANCE DIRECTIVE DISCUSSION ADVANCE DIRECTIVE DISCUSSION [facility] Start: 07-29-2021 DEPRESSION ASSESSMENT DEPRESSION ASS ESSMENT [facility] Start: 05-28-2017 Urine microalbumin profile DTa P,Tdap,Td Vaccine (1 - Tdap) [facility] Start: 2011 Fall Risk Screening Fall Risk Screen [facility] Start: 2011 PNEUMOCOCCAL: 65+ (1 - PCV) PNEUMOCOCCAL: 65+ (1 - PCV) [facility] Start: 2006 RSV Vaccine (1 - 1-d ose 60+ series) RSV Vaccine (1 - 1-dose 60+ series) [facility] Start: 1996 SHINGRIX VACCINE (1 of 2) FRIAS GRIX VACCINE (1 of 2) [facility] Start: 1991 COLOGUARD (FIT-DNA) COLOGUARD (FIT-D NA) [facility] Start: 1991 Colonoscopy COLONOSCOPY [facility] Start: 1991 COLORECTAL CANCER SCREENING COLORECTAL CANCER SCREENING [facility] Start: [address] COLONOGRAPHY [facility] Start: 1991 FECAL OCCULT BLOOD FECAL OCCULT BLOO D [facility] Start: 1991 SIGMOIDOSCOPY SIGMOIDOSCOPY [facility] Start: 1981 LIPID SCREEN LIPID SCREEN [facility] Start: 1965 Urine microalbumin profile DTAP,TDAP ,TD (1 - Tdap) [facility] Start: 1965 Urine screening for protein Diabetes: Urine Protein Screening [facility] Start: 1964 Anxiety Screening Anxiety Screening [facility] Start: 1964 Depression Screening Depression Scre ening [facility] Start: 1964 HEPATITIS C SCREENING HEPATITIS C [facility] Start: 1964 Hepatitis C screening Hepatitis C [facility] Start: 1958 Depression Screening Depression Scre ing [facility] Start: 1956 Glaucoma screening Diabetes: R etinopathy Screening [facility] Start: 1946 Medicare Annual Well ness (AWV) Medicare Annual Wellness (AWV) [facility] Start: 1946 Medicare Annual Well ness Visit Medicare Annual Wellness Visit [facility] End: 07-06-2023 Mri brain brain stem w/o contrast material MRI BRAIN WO IVCON Radiology Routine PD (Parkinson's disease) (HCC) Dysarthria 1 Occurrences starting 06/06/2022 until 07/06/2023 [facility] Work Phone: Comment on above: 1 Occurrences starti ng 06/06/2022 until 07/06/2023 [facility] Immunizations Immunization Date Immunization Notes Care Provider Renetta marin 05-13-2023 RSV, recombinant, pr otein subunit RSVpreF, adjuvant reconstitu, 120mcg/0.5mL, PF (Arexvy) Ayaz Santo DPM Work Phone: [facility] 04-22-2023 Influenza, Seasonal, Quadrivalent, Adjuvanted Nathan Bolton MD Work Phone: [facility] 04-22-2023 influenza virus vacc ine, unspecified formulation Ayaz Santo DPM Work Phone: [facility] 04-23-2022 Influenza, High-dose Seasonal, Quadrivalent, Preservative Free Nathan Bolton MD Work Phone: [facility] 04-27-2021 Influenza, Seasonal, Quadrivalent, Adjuvanted Nathan Bolton MD Work Phone: [facility] 05-05-2020 Influenza, Seasonal, Quadrivalent, Adjuvanted Nathan Bolton MD Work Phone: [facility] 05-18-2019 Influenza, injectabl e, Madin Coco Canine Kidney, preservative free, quadrivalent Nathan Bolton MD Work Phone: [facility] 11-20-2018 zoster vaccine recombinant Jade Bolton MD Work Phone: [facility] 05-13-2018 Seasonal trivalent influenza vaccine, adjuvanted, preservative free Nathan Bolton MD Work Phone: [facility] 02-17-2018 zoster vaccine recombinant Jade Bolton MD Work Phone: [facility] 09-06-2017 pneumococcal polysaccharide vaccine, 23 valent Nathan Bolton MD Work Phone: [facility] 05-27-2017 tetanus and diphther ia toxoids, adsorbed, preservative free, for adult use (5 Lf of tetanus toxoid and 2 Lf of diphtheria toxoid) Nathan Bolton MD Work Phone: [facility] 04-29-2017 influenza, high dose seasonal, preservative-free Nathan Bolton MD Work Phone: [facility] 05-30-2016 influenza, high dose seasonal, preservative-free Nathan Bolton MD Work Phone: [facility] 05-30-2016 pneumococcal conjuga te vaccine, 13 valent Nathan Bolton MD Work Phone: [facility] 06-08-2015 influenza, high dose seasonal, preservative-free Nathan Bolton MD Work Phone: [facility] Payers Date Payer Category Payer Medicaid [employer] MEDICARE A DVANTAGE [id number] 2020 Medicare [id number] 2020 Medicare (Managed Care) [employer] [place] [id number] 2020 Medicare HMO [employer] MEDICARE [id number] 1959 Medicare [id number] 1946 Unknown [id number] 2.16.840.1.007881.3.579.2. 593 1946 Unknown [id number] 2.16.840.1.481378.3.579.2. 593 1946 Unknown [id number] 2.16.840.1.395133.3.579.2. 593 1946 Unknown [id number] 2.16.840.1.481627.3.579.2. 593 1946 Unknown [id number] 2.16.840.1.434646.3.579.2. 593 1946 Unknown [id number] 2.16.840.1.109519.3.579.2. 593 1946 Unknown [id number] 2.16.840.1.734478.3.579.2. 593 1946 Unknown [id number] 2.16.840.1.313385.3.579.2. 593 1946 Unknown [id number] 2.16.840.1.428043.3.579.2. 593 1946 Unknown [id number] 2.16.840.1.028621.3.579.2. 593 1946 Unknown [id number] 2.16.840.1.578833.3.579.2. 593 1946 Unknown [id number] 2.16.840.1.701202.3.579.2. 1286 1946 Unknown [id number] 2.16.840.1.456900.3.579.2. 1286 1946 Unknown [id number] 2.16.840.1.475386.3.579.2. 718 1946 Unknown [id number] 2.16.840.1.012580.3.579.2. 1259 1946 Unknown [id number] 2.16.840.1.142268.3.579.2. 1259 1946 Unknown [id number] 2.16.840.1.211590.3.579.2. 1259 1946 Unknown [id number] 2.16.840.1.108624.3.579.2. 1259 1946 Unknown [id number] 2.16.840.1.081319.3.579.2. 1259 1946 Unknown [id number] 2.16.840.1.062313.3.579.2. 1259 1946 Unknown [id number] 2.16.840.1.742665.3.579.2. 1259 1946 Unknown [id number] 2.16.840.1.421930.3.579.2. 1259 1946 Unknown [id number] 2.16.840.1.543108.3.579.2. 1259 1946 Unknown [id number] 2.16.840.1.929746.3.579.2. 1259 Social History Date Type Detail Facility Start: 03-27-2019 End: 12-05-2022 Tobacco smoking status NHIS Never smoked tobacco [facility] Start: 03-27-2019 End: 12-05-2022 Tobacco use and exposure Smokeless tobacco non-user [facility] Start: 10-14-2020 End: 06-18-2024 Alcohol intake Lifetime non-drinker (finding) [facility] Start: 03-27-2019 History SDOH Alcohol Frequency 1 [facility] Start: 1945 Sex Assigned At Male [facility] Start: 05-27-2022 End: 06-06-2022 Exposure to SARS-CoV-2 (event) Not sure [facility] Start: 12-05-2022 End: 06-15-2024 History of Social function [facility] Start: 12-05-2022 End: 06-15-2024 Tobacco use panel [facility] Adult Depression Screening Assessment 0 [facility] Start: 03-30-2019 Gender identity Identifies as male gender (finding) [facility] How often to you hav e a drink containing alcohol? Never [facility] Within the last year , have [...] At Not on file [facility] Do you feel stress - tense, restless, nervous, or anxious, or unable to sleep at night because your mind is troubled all the time - these days [OSQ] Only a little [facility] Start: 03-03-2015 Sex Male (finding) [facility] Start: 07-08-2021 Sexual orientation Heterosexual (fin ding) [facility] NEGATED: Highlighted rowStart: BERE History of tobacco use Passive smoker [facility] Medical Equipment Procedure Code Equipment Code Equipment Origin al Text Equipment Identifier Dates once daily. [id number], [id number] Start: 12-15-2018 Comment on above: once daily. Clinical Notes 05-15-2022 to 09-14-2024 Telephone Encounter - Felice Russo - 09/14/2024 12:56 PM ESTTelephone Encounter - Felice Russo - 09/14/2024 12:[address] Bolton MD - 09/07/2024 12:18 PM ESTPatient Instructions Note Date & Type Note Facility 09-14-2024 Telephone encounter Note Last appt 06/18/24 [facility] [place] Requested Prescriptions Pending Prescriptions Disp Refills carbidopa-levodopa (SINEMET) 25-100 mg per tablet 540 tablet 3 Sig: Take 2 tablets by mouth four times daily. [Every 3-hours] [facility] 09-14-2024 Miscellaneous Notes Last appt 06/18/24 [facility] [place] Requested Prescriptions Pending Prescriptions Disp Refills carbidopa-levodopa (SINEMET) 25-100 mg per tablet 540 tablet 3 Sig: Take 2 tablets by mouth four times daily. [Every 3-hours] documented in this encounter [facility] 09-07-2024 History of Present illness Narrative Associated [...] 50 MG tablet documented in this encounter [facility] 07-14-2024 Telephone encounter Note Summary: ST POC 07/14/2024 S.T. POC received from [employer]. Dr. Alberts reviewed and signed. POC securely faxed with confirmation of receipt received. Sent for scanning. Kathleen Flanagan LPN July 14, 2024 1:25 PM [facility] 07-14-2024 Miscellaneous Notes Summary: ST POC 07/14/2024 S.T. POC received from [facility] [employer]. Dr. Alberts reviewed and signed. POC securely faxed with confirmation of receipt received. Sent for scanning. Kathleen Flanagan LPN July 14, 2024 1:25 PM documented in this encounter [facility] 07-07-2024 History of Present illness Narrative Images from the original note were not included. Subjective Patient ID: Herrera Wetzel is a 78 y.o. male who presents for Nail care (Herrera Wetzel is a 78 y.o. male who presents for DM Foot Care PCP: Dr. Bolton LV 06/01/2024, A1C: 9.2, BS: 167.SS 10.5). HPI [...] Mother Aida wetzel Vision loss Father Elvin Rohith Sr Objective [...] Ayaz Santo DPM documented in this encounter [facility] 07-07-2024 Instructions Ayaz Santo DPM - 07/07/2024 9:30 AM EST As noted documented in this encounter [facility] 06-19-2024 Telephone encounter Note Summary: in-step order 06/19/2024 Order sent via secured fax to [employer] at with confirmation of receipt received. Order also sent for scanning. Kathleen Flanagan LPN June 19, 2024 9:45 AM [facility] 06-19-2024 Miscellaneous Notes Summary: in-step order 06/19/2024 Order sent via secured fax to [employer] at with confirmation of receipt received. Order also sent for scanning. Kathleen Flanagan LPN June 19, 2024 9:45 AM documented in this encounter [facility] 06-18-2024 Note HNO ID: [id number] Author: DONALD ALBERTS, DO Service: ? Author Type: Physician Type: Progress Notes Filed: 06/18/2024 10:18 Note Text: [facility] - FOLLOW UP EVALUATION Nathan Bolton MD [address] [facility] [address] Dear Nathan Bolton MD: I had the [...] Arm, BP Po (more content not included)... [facility] 06-18-2024 History of Present illness Narrative [facility] - FOLLOW UP EVALUATION Nathan Bolton MD [address] [facility] [place] [address] Dear Nathan Bolton MD: I had the [...] Left pathological reflexes: Kirstin's absent. Coordination Right: Hgqnhd-ki-pxoi normal. Rapid alternating movement normal.Left: Vbuzly-vw-rhwz normal. Rapid alternating movement normal. Gait Casual [...] for speech therapy to focus on [employer] [employer] ([facility]) Interested in clinical research? Not discussed Updated Movement Disorders Medication Schedule: Medications 8A 11A 2P 5P Sinemet 2 2 2 2 Azilect 1mg 1 0 0 0 Return at or around: 12/16/24 Level of service : 79887 (20-29 min). Time spent 20 min on the day of service, which included preparing to see the patient, brsv-jf-voic patient care, completing clinical documentation, obtaining and/or [...] Donald Alberts DO documented in this encounter [facility] 06-01-2024 History of Present illness Narrative Associated [...] follow with neurology. documented in this encounter [facility] 05-25-2024 History of Present illness Narrative Images from the original note were not included. [address] [address] [facility] [address] Patient: Herrera Wetzel Date of : 1945 [...] DDD (degenerative disc disease), lumbar Diabetes mellitus ([facility]) Diabetes mellitus type 2, controlled ([facility]) Dyslipidemia Elevated PSA Elevated PSA Hematuria Hyperlipidemia Hypertension Kidney stone Osteoarthritis Parkinson disease ([facility]) Skin cancer basal and melanoma Visual impairment Past Surgical History: Procedure Laterality Date APPENDECTOMY CARDIAC SURGERY 1988 cardiac cath-no stents CATARACT EXTRACTION BILATERAL W/ ANTERIOR VITRECTOMY Bilateral 08/2022, 09/2022 CYST REMOVAL hand CYSTOSCOPY BIOPSY BLADDER N/A 01/23/2021 Performed by Yobany Gonzales MD at [facility] CYSTOSCOPY INSERTION STENT URETER Bilateral 01/23/2021 Performed by Yobany Gonzales MD at [facility] CYSTOSCOPY RETROGRADE PYELOGRAM Bilateral 01/23/2021 Performed by Yobany Gonzales MD at [facility] CYSTOURETEROSCOPY DIAGNOSTIC Bilateral 01/23/2021 Performed by Yobany Gonzales MD at [facility] NEEDLE BIOPSY FUSION PROSTATE N/A 07/04/2021 Performed by Yobany Gonzales MD at [facility] SURGERY SKIN CANCER EXCISION MELANOMA ON HIS BACK [...] in the morning. Indications: high blood pressure. mlsnblpy-hrwc-EH-calcium &mins (THERAGRAN-M) 9 mg iron-400 mcg tablet [...] No interval gross hematuria. (pt does bruse/bleed easily--residential issue) ==== 12/21/2020 ==== history gross hematuria. [...] for your understanding. documented in this encounter [facility] 03-23-2024 History of Present illness Narrative Images [...] Mother Aida wetzel Vision loss Father Elvin Rohith Sr Objective [...] Ayaz Santo DPM documented in this encounter [facility] 03-23-2024 Instructions Ayaz Santo DPM - 03/23/2024 10:15 AM EDT As noted documented in this encounter [facility] 12-26-2023 Instructions Donald Alberts DO - [...] Compazine or Phenergan. documented in this encounter [facility] 12-26-2023 Note HNO ID: [id number] Author: DONALD ALBERTS DO Service: ? Author Type: Physician Type: Progress Notes Filed: 12/26/2023 13:43 Note Text: [facility] - FOLLOW UP EVALUATION Donald Alberts [address] [facility] [address] Nathan Bolton MD [address] [facility] [place] [id number] Herrera Wetzel is a 78 year old male with a history of PD. He is seen with his . Interval History Since Last Visit: The patient is having more issues with falling. 4(four) falls. Going to PT and DtD. Better with U-STEP Walking Stabilizer Walker. Wearing-off causes lots of trouble with his walking. More festinating. More vgzbrqja-on-ncam (FOG). The patient denies any recent illness [...] no murmur Extremitie (more content not included)... [facility] 12-26-2023 History of Present illness Narrative [facility] - FOLLOW UP EVALUATION Donald Alberts [address] [facility] [address] Nathan Bolton MD [address] [facility] [place] [address] Herrera Wetzel is a 78 year old male with a history of PD. He is seen with his . Interval History Since Last Visit: The patient is having more issues with falling. 4(four) falls. Going to PT and DtD. Better with U-STEP Walking Stabilizer Walker. Wearing-off causes lots of trouble with his walking. More festinating. More mpomfxqn-ym-lxlv (FOG). The patient denies any recent illness [...] Left pathological reflexes: Kirstin's absent. Coordination Right: Wmwjbv-hy-yjrp normal. Rapid alternating movement normal.Left: Ydtmim-av-hfwf normal. Rapid alternating movement normal. Gait Casual [...] counseling regarding preparing to see the patient, rffk-vm-ixob patient care, completing clinical documentation, obtaining and/or reviewing separately obtained history, performing a medically appropriate examination, counseling and educating the patient/family/caregiver, ordering medications, tests, or procedures, and communicating results to the patient/family/caregiver. I tried to answer all of the patient's questions and concerns during this visit. Donald Alberts DO Senior Staff Neurologist - [facility] documented in this encounter [facility] 09-10-2023 History of Present illness Narrative [...] w KUB documented in this encounter [facility] 06-14-2023 Note HNO ID: [id number] Author: Talaang Donald Chaves, DO Service: ? Author Type: Physician Type: Progress Notes Filed: 06/14/2023 3:34 PM Note Text: [facility] - FOLLOW UP EVALUATION Nathan Bolton MD [address] [facility] [address] Herrera Wetzel is a 77 year old male with a history of PD. He is seen with his . Interval History Since Last Visit: The patient had a swallowing test in late november 2022 - no issues other than more focus on swallowing was made to the patient. He is going to DEPARTMENT MGR still. 1 fall in November o/w doing [...] Cardiac: Regular r (more content not included)... [facility] 02-20-2023 Miscellaneous Notes Last appt 12/05/22 MTG Requested Prescriptions Pending Prescriptions Disp Refills carbidopa-levodopa (SINEMET) 25-100 mg per tablet 540 tablet 3 Sig: Take 1.5 tablets by mouth four times daily. documented in this encounter [facility] 12-13-2022 Note PROCEDURE: XR HIP RT [...] by: AYAZ NICOLE Date: 2022-12-13 09:47 [facility] 12-13-2022 Note PROCEDURE: XR FOREAR M RT [...] by: AYAZ NICOLE Date: 2022-12-13 09:43 [facility] 12-13-2022 Note PROCEDURE: XR FOREAR M RT [...] by: AYAZ NICOLE Date: 2022-12-13 09:43 [facility] 12-05-2022 Note HNO ID: [id number] Author: Donald Alberts, DO Service: ? Author Type: Physician Type: Progress Notes Filed: 12/05/2022 2:18 PM Note Text: [facility] - FOLLOW UP EVALUATION Donald Alberts [address] [facility] [address] Nathan Bolton MD [address] [facility] [address] Herrera Wetzel is a 77 year old male with a history of parkinsonism. He is seen with family. Interval History Since Last Visit: He is falling. There is more pgpryjjc-zs-pslq (FOG) - this is the cause of the falls. He has fallen while he is carrying things. Multitasking is a big issue. There were two falls in the post op period following cataract surgery. FOG seems to be worse in the PM. There is drooling at night. The mucous in the back of the throat is the issue. No DEPARTMENT MGR for 6 years. The Sinemet is not [...] Right pathological reflex (more content not included)... [facility] 12-05-2022 Instructions Donald Alberts DO - 12/05/2022 2:12 PM EDT Medications 8A 1130A 3P 6P Sinemet 25/100 1.5 1.5 1.5 1.5 Azilect 1mg 1 0 0 0 documented in this encounter [facility] 12-05-2022 History of Present illness Narrative [facility] - FOLLOW UP EVALUATION Donald T Aristeo [address] [facility] [address] Nathan Bolton MD [address] [facility] [address] Herrera Wetzel is a 77 year old male with a history of parkinsonism. He is seen with family. Interval History Since Last Visit: He is falling. There is more jluaroht-hc-mlbv (FOG) - this is the cause of the falls. He has fallen while he is carrying things. Multitasking is a big issue. There were two falls in the post op period following cataract surgery. FOG seems to be worse in the PM. There is drooling at night. The mucous in the back of the throat is the issue. No DEPARTMENT MGR for 6 years. The Sinemet is not [...] Left pathological reflexes: Kirstin's absent. Coordination Right: Blsflr-gs-kxcx normal. Rapid alternating movement normal.Left: Dzwitc-zb-ccwg normal. Rapid alternating movement normal. Gait Casual [...] this visit: Pd (parkinson's disease) ([facility]) (primary encounter diagnosis) Sialorrhea Hypophonia Plan: Continue current antiparkinsonian regimen as dosed other than increasing Sinemet 2. PA for botulinum toxin (Myobloc) injections 3. DEPARTMENT MGR locally for swallow evaluation Return in about 6 months (around 06/07/2023). Medical decision making was high complexity due to patient's, multiple symptoms, advancing disease The total time spent on the patient care was 30 minutes with greater than 50% of the time spent on counseling regarding preparing to see the patient, qjnu-fm-asqu patient care, completing clinical documentation, obtaining and/or reviewing separately obtained history, performing a medically appropriate examination, counseling and educating the patient/family/caregiver, ordering medications, tests, or procedures, communicating with other HCPs (not separately reported), communicating results to the patient/family/caregiver, and care coordination (not separately reported) Donald Alberts DO Senior Staff Neurologist - [facility] Diagnosis: Sialorrhea (K11.7) Current Examination: There is [...] EMG guidance: Yes documented in this encounter [facility] 09-27-2022 Note OPERATIVE NOTE OPERATION DATE: [...] ensuring mobility, phacoemulsification was performed in a bytxcbt-lll-xwacpk-type fashion. After all nuclear material had been [...] the following day for postoperative care. [facility] 09-27-2022 Note PREOPERATIVE HISTORY AND PHYSICAL Date:09/26/2021 [...] go forward with his elective procedure. [facility] 09-10-2022 Miscellaneous Notes Requested Prescriptions Pending Prescriptions Disp Refills rasagiline (AZILECT) 1 mg tab 90 tablet 1 Sig: Take 1 tablet by mouth once daily. documented in this encounter [facility] 08-30-2022 Note OPERATIVE NOTE OPERATION DATE: [...] ensuring mobility, phacoemulsification was performed in a edhaebg-ejo-ucipnl-type fashion. After all nuclear material had been [...] the following day for postoperative care. [facility] 08-30-2022 Note HISTORY AND PHYSICAL EXAMINATION Date:08/29/2022 [...] go forward with his elective procedure. [facility] 06-27-2022 Note CONSULTATION CONSULTATION DATE: 06/27/2022 HISTORY [...] follow up on a p.r.n. basis. [facility] 06-22-2022 Miscellaneous Notes I spoke with Klaudia Rohith to inform her MRI for Herrera is normal per Dr. Patino. ----- Message from Juan Patino MD sent at 06/20/2022 2:51 PM EST ----- Regarding: MRI results Johnathanbartolome, I am covering for Dr. Alberts today. Please let this patient know that his MRI results came back normal. Thanks, Dr. Patino documented in this encounter [facility] 06-20-2022 History of Present illness Narrative Radiology [...] 2022 1:15 PM documented in this encounter [facility] 06-06-2022 History of Present illness Narrative [facility] - FOLLOW UP EVALUATION Nathan Bolton MD [address] [facility] [id number] Herrera Wetzel is a 76 year old male with a history of PD. He is seen with his . Interval History Since Last Visit: The patient notes that he is more clumsy - the speech has worsened over the last couple of weeks. the walking has had more kfiatwyw-md-sbbk (FOG). No falls are noted. The notes [...] Left pathological reflexes: Kirstin's absent. Coordination Right: Bwhkxz-hy-svyw normal. Rapid alternating movement normal. Left: Jnmunr-fd-iwbn normal. Rapid alternating movement normal. Gait Casual [...] counseling regarding preparing to see the patient, vxke-kc-mkob patient care, completing clinical documentation, obtaining and/or reviewing separately obtained history, performing a medically appropriate examination, counseling and educating the patient/family/caregiver, ordering medications, tests, or procedures, and communicating results to the patient/family/caregiver. I tried to answer all of the patient's questions and concerns during this visit. Donald Alberts DO Senior Staff Neurologist - [facility] documented in this encounter [facility] 05-15-2022 Note CONSULTATION CONSULTATION DATE: 05/15/2022 CHIEF COMPLAINT: Low back pain, posterior thigh pain. HISTORY OF PRESENT ILLNESS: This is a very pleasant, 76-year-old gentleman who is accompanied by his . The patient suffers from Parkinson's. The patient is being treated at [facility] with regards to this. The patient [...] patient currently takes Mobic 7.5 daily, Tylenol nuex-qvp-jhdqqgy. The patient also is on Sinemet, metformin, [...] mg IM. CC: Nathan Bolton M.D. [facility] Evaluation note Diagnosis PD (Parkinson's disease) (HCC)- Primary Paralysis agitans Dysarthria [facility] Diagnosis PD (Parkinson's disease) (HCC)- Primary Paralysis agitans Sialorrhea Disturbance of salivary secretion Hypophonia Other voice and resonance disorders [facility] Diagnosis PD (Parkinson's disease) (HCC) Paralysis agitans [facility] Diagnosis Sialorrhea- Primary Disturbance of salivary secretion [facility] Diagnosis Epigastric abdominal pain- Primary Abdominal pain, epigastric [facility] Diagnosis Parkinson's disease without dyskinesia or fluctuating manifestations (HCC)- Primary Sialorrhea Disturbance of salivary secretion [facility] Diagnosis PD (Parkinson's disease) (HCC) Paralysis agitans Dysarthria [facility] Diagnosis Epigastric abdominal pain- Primary Abdominal [...] classified elsewhere (CMS/HCC) [facility] Diagnosis Epigastric abdominal pain- [...] insulin (CMS/HCC)- Primary 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 of nail- Primary Dystrophic nail Other specified disease of nail Pain around toenail, right foot Pain around toenail, left foot documented in this encounter [facility]* Diagnosis Dermatophytosis of nail- Primary Dystrophic nail Other specified disease of nail Pain around toenail, right foot Pain around toenail, left foot documented in this encounter [facility]* Diagnosis Epigastric abdominal pain- Primary [...] Immunodeficiency due to conditions classified elsewhere (CMS/HCC) Strain of calf muscle, subsequent encounter- Primary documented in this encounter [facility]* Diagnosis Hematuria, unspecified type- Primary Hematuria, [...] gross Gross hematuria [facility] Diagnosis PD (Parkinson's disease) (HCC) Paralysis agitans [facility]ocument[facility] Purpose Family History No Family History Records FoundNo Family History Records FoundNo Family History Records FoundNo Family History Records FoundNo Family History Records FoundNo Family History Records FoundNo Family History Records FoundNo Family History Records FoundNo Family History Records Found Advance Directives Documents on File Type Date Recorded 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 Living Will 06/20/2021 9:38 AM Durable Power of Bowl Topper 06/20/2021 9:37 AM Reason for Referral Specialty Diagnoses / Procedures Referred By El chaves Referred To Contact Diagnoses PD (Parkinson's disease) (HCC) Dysarthria Procedures PROVIDER ORDERED FOLLOW UP OFFICE/OUTPATIENT [facility] MDM 60-74 MINUTES Donald Alberts, DO [address] [place] [address] Referral ID Status Reason Start Date Expiration Date V isits Requested Visits Authorized [id number] Pending Review 12/04/2022 03/04/2023 1 1 Specialty Diagnoses / Procedures Referred By El chaves Referred To Contact MR IMAGING Diagnoses PD (Parkinson's disease) (HCC) Dysarthria Procedures MRI BRAIN WO IVCON MRI BRAIN BRAIN STEM W/O CONTRAST MATERIAL Donald Alberts, DO [address] [place] [address] Mr Imaging Referral ID Status Reason Start Date Expiration Date Visits Requested Visits Authorized [id number] Authorized Auto-Generat ed Referral 06/06/2022 07/06/2023 1 1 Specialty Diagnoses / Procedures Referred By El chaves Referred To Contact Diagnoses PD (Parkinson's disease) (HCC) Procedures PROVIDER ORDERED FOLLOW UP OFFICE/OUTPATIENT [facility] 60-74 MINUTES Donald Alberts, DO [address] [place] [address] Referral ID Status Reason Start Date Expiration Date V isits Requested Visits Authorized [id number] Pending Review 06/07/2023 09/05/2023 1 1 Specialty Diagnoses / Procedures Referred By El chaves Referred To Contact [facility] Diagnoses PD (Parkinson's disease) (HCC) Sialorrhea Hypophonia Procedures CONSULT TO SPEECH THERAPY OFFICE/OUTPATIENT NEW HIGH MDM 60-74 MINUTES Gostkowski, Donald T, DO [address] [place] [address] [facility] [address] [address] Referral ID Status Reason Start Date Expiration Date Visits Requested Visits Authorized [id number] Pending Review Auto-Generat ed Referral 12/05/2022 12/05/2023 1 1 Specialty Diagnoses / Procedures Referred By El chaves Referred To Contact MR IMAGING Diagnoses PD (Parkinson's disease) (HCC) Dysarthria Procedures MRI BRAIN WO IVCON MRI BRAIN BRAIN STEM W/O CONTRAST MATERIAL Donald Alberts DO [address] [place] [id number] Mr Imaging [facility] Referral ID Status Reason Start Date Expiration Date V isits Requested Visits Authorized [id number] Closed Auto-Generate d Referral 06/06/2022 07/06/2023 1 1 Specialty Diagnoses / Procedures Referred By El chaves Referred To Contact Diagnoses Parkinson's disease without dyskinesia or fluctuating manifestations (HCC) Procedures PROVIDER ORDERED FOLLOW UP OFFICE/OUTPATIENT [facility] 60 MINUTES Donald Alberts, DO [address] [place] [address] Referral ID Status Reason Start Date Expiration Date V isits Requested Visits Authorized [id number] Authorized 12/16/2024 03/16/2025 1 1 Specialty Diagnoses / Procedures Referred By El chaves Referred To Contact [facility] Diagnoses 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) Procedures CONSULT TO SPEECH THERAPY OFFICE/OUTPATIENT [facility] 60 MINUTES Donald Alberts DO [address] [place] [address] [facility] [address] [address] Referral ID Status Reason Start Date Expiration Date Visits Requested Visits Authorized [id number] Pending Review Auto-Generat ed Referral 06/18/2025 1 1 Additional Source Comments (unrecognized sect ion and content) No Status Records FoundNo Status Records FoundNo Status Records FoundNo Status Records FoundNo Status Records FoundNo Status Records FoundNo Status Records FoundNo Status Records FoundNo Status Records Found INFORMATION SOURCE (unrecogn ized section and content) DATE CREATED AUTHOR 03/26/2020 [facility] DATE CREATED AUTHOR AUTHOR'S ORGANIZ ATION 11/22/2020 [facility] DATE CREATED AUTHOR AUTHOR'S ORGANIZ ATION 01/04/2023 [facility] DATE CREATED AUTHOR AUTHOR'S ORGANIZ ATION 06/17/2023 [facility] DATE CREATED AUTHOR AUTHOR'S ORGANIZ ATION 05/20/2024 [facility] DATE CREATED AUTHOR AUTHOR'S ORGANIZ ATION 05/26/2024 [facility] DATE CREATED AUTHOR AUTHOR'S ORGANIZ ATION 07/17/2024 [facility] DATE CREATED AUTHOR AUTHOR'S ORGANIZ ATION 07/18/2024 [facility] DATE CREATED AUTHOR AUTHOR'S ORGANIZ ATION 09/08/2024 [facility] Special[facility] EPIC Source Comments (unrecognize d section and content) In the event this informatio n is protected by the Federal Confidentiality of Alcohol and Drug Abuse Patient Records regulations: The Federal rules restrict any use of the information to criminally investigate or prosecute any alcohol or drug abuse patient.[facility] the event this information is protected by the Federal Confidentiality of Alcohol and Drug Abuse Patient Records regulations: The Federal rules restrict any use of the information to criminally investigate or prosecute any alcohol or drug abuse patient.[facility] the event this information is protected by the Federal Confidentiality of Alcohol and Drug Abuse Patient Records regulations: The Federal rules restrict any use of the information to criminally investigate or prosecute any alcohol or drug abuse patient.[facility] Hospital[facility] the event this information is protected by the Federal Confidentiality of Alcohol and Drug Abuse Patient Records regulations: The Federal rules restrict any use of the information to criminally investigate or prosecute any alcohol or drug abuse patient.[facility] HospitalIn the event this information is protected by the Federal Confidentiality of Alcohol and Drug Abuse Patient Records regulations: The Federal rules restrict any use of the information to criminally investigate or prosecute any alcohol or drug abuse patient.[facility] HospitalIn the event this information is protected by the Federal Confidentiality of Alcohol and Drug Abuse Patient Records regulations: The Federal rules restrict any use of the information to criminally investigate or prosecute any alcohol or drug abuse patient.[facility] HospitalIn the event this information is protected by the Federal Confidentiality of Alcohol and Drug Abuse Patient Records regulations: The Federal rules restrict any use of the information to criminally investigate or prosecute any alcohol or drug abuse patient.[facility] HospitalIn the event this information is protected by the Federal Confidentiality of Alcohol and Drug Abuse Patient Records regulations: The Federal rules restrict any use of the information to criminally investigate or prosecute any alcohol or drug abuse patient.[facility] HospitalIn the event this information is protected by the Federal Confidentiality of Alcohol and Drug Abuse Patient Records regulations: The Federal rules restrict any use of the information to criminally investigate or prosecute any alcohol or drug abuse patient.[facility] HospitalIn the event this information is protected by the Federal Confidentiality of Alcohol and Drug Abuse Patient Records regulations: The Federal rules restrict any use of the information to criminally investigate or prosecute any alcohol or drug abuse patient.[facility] HospitalIn the event this information is protected by the Federal Confidentiality of Alcohol and Drug Abuse Patient Records regulations: The Federal rules restrict any use of the information to criminally investigate or prosecute any alcohol or drug abuse patient.[facility] HospitalIn the event this information is protected by the Federal Confidentiality of Alcohol and Drug Abuse Patient Records regulations: The Federal rules restrict any use of the information to criminally investigate or prosecute any alcohol or drug abuse patient.[facility] HospitalIn the event this information is protected by the Federal Confidentiality of Alcohol and Drug Abuse Patient Records regulations: The Federal rules restrict any use of the information to criminally investigate or prosecute any alcohol or drug abuse patient.[facility] HospitalIn the event this information is protected by the Federal Confidentiality of Alcohol and Drug Abuse Patient Records regulations: The Federal rules restrict any use of the information to criminally investigate or prosecute any alcohol or drug abuse patient.[facility] HospitalIn the event this information is protected by the Federal Confidentiality of Alcohol and Drug Abuse Patient Records regulations: The Federal rules restrict any use of the information to criminally investigate or prosecute any alcohol or drug abuse patient.[facility] HospitalIn the event this information is protected by the Federal Confidentiality of Alcohol and Drug Abuse Patient Records regulations: The Federal rules restrict any use of the information to criminally investigate or prosecute any alcohol or drug abuse patient.[facility] Reason for Visit (unrecogniz ed section [...] HIGH MDM 60-74 MINUTES Donald Alberts, DO [address] [place] [address] Referral ID Status Reason Start Date Expiration Date V isits Requested Visits Authorized [id number] Pending Review 12/04/2022 03/04/2023 1 1 Reason [...] (HCC) Procedures PROVIDER ORDERED FOLLOW UP OFFICE/OUTPATIENT [facility] 60-74 MINUTES Donald Alberts, DO [address] [place] [address] [facility] [address] [place] [address] Referral ID Status Reason Start Date Expiration Date V isits Requested Visits Authorized [id number] Authorized 07/29/2023 07/28/2024 99 99 Specialty Diagnoses / Procedures Referred By El chaves Referred To Contact MR IMAGING Diagnoses PD (Parkinson's disease) (HCC) Dysarthria Procedures MRI BRAIN WO IVCON MRI BRAIN BRAIN STEM W/O CONTRAST MATERIAL Donald Alberts DO [address] [place] [address] Mr Imaging [place] [address] Referral ID Status Reason Start Date Expiration Date V isits Requested Visits Authorized [id number] Closed Auto-Generate d Referral 06/06/2022 07/06/2023 1 1 Reason Comments Follow-up 6 m Reason Comments [...] PRICE 03/05/2024, A1C: 9.2, BS: 187.SS 10.5 Reason Comments Follow-up Reason Onset Date Comments Refill Request 09/12/2024 Care Teams (unrecognized sec tion and content) Kier Pleater Relationship Specialty Start Date End Date Nathan Bolton [address] [place] [address] PCP - General Family Medicine 07/29/20 Kier Pleater Relationship Specialty Start Date End Date Nathan Bolton [address] [place] [address] PCP - General Family Medicine 07/29/20 Kier Pleater Relationship Specialty Start Date End Date Hoang Nathan Gavin [address] [place] [address] PCP - General Family Medicine 07/29/20 Kier Pleater Relationship Specialty Start Date End Date Rachellyndseygideon Nathan Alonso [address] [place] [address] PCP - General Family Medicine 07/29/20 Kier Pleater Relationship Specialty Start Date End Date Mamegideon Nathan Alonso [address] [place] [address] PCP - General Family Medicine 07/29/20 Kier Pleater Relationship Specialty Start Date End Date Nathan Bolton [address] [place] [address] PCP - General Family Medicine 07/29/20 Kier Pleater Relationship Specialty Start Date End Date Nathan Bolton [address] [place] [address] PCP - General Family Medicine 07/29/20 Kier Pleater Relationship Specialty Start Date End Date Nathan Bolton MD [address] [place] [address] PCP - General Family Medicine 09/10/23 Kier Pleater Relationship Specialty Start Date End Date Nathan Bolton MD [address] [place] [address] PCP - General Family Medicine 09/10/23 Kier Pleater Relationship Specialty Start Date End Date Nathna Bolton [address] [place] [address] PCP - General Family Medicine 07/29/20 Kier Pleater Relationship Specialty Start Date End Date Nathan Bolton [address] [place] [address] PCP - General Family Medicine 07/29/20 Kier Pleater Relationship Specialty Start Date End Date Nathan Bolton [address] [place] [address] PCP - General Family Medicine 07/29/20 Kier Pleater Relationship Specialty Start Date End Date Nathan Bolton MD [address] [place] [address] PCP - General Family Medicine 09/10/23 Kier Pleater Relationship Specialty Start Date End Date Nathan Bolton MD [address] [place] [address] PCP - General Family Medicine 09/10/23 Kier Pleater Relationship Specialty Start Date End Date Nathan Bolton MD [address] [place] [address] PCP - General Family Medicine 09/10/23 Kier Pleater Relationship Specialty Start Date End Date Nathan Bolton MD [address] [place] [address] PCP - General Family Medicine 07/29/20 Kier Pleater Relationship Specialty Start Date End Date Nathan Bolton MD [address] [place] [address] PCP - General Family Medicine 07/29/20 Kier Pleater Relationship Specialty Start Date End Date Nathan Bolton MD [address] [place] [address] PCP - General Family Medicine 07/29/20 Kier Pleater Relationship Specialty Start Date End Date Nathan Bolton MD [address] [place] [address] PCP - General Family Medicine 09/10/23 Kier Pleater Relationship Specialty Start Date End Date Nathan Bolton MD [address] [place] [address] PCP - General Family Medicine 09/10/23 Kier Pleater Relationship Specialty Start Date End Date Nathan Bolton MD [address] [place] [address] PCP - General Family Medicine 09/10/23 Kier Pleater Relationship Specialty Start Date End Date Nathan Bolton MD [address] [place] [address] PCP - General Family Medicine 09/10/23 Kier Pleater Relationship Specialty Start Date End Date Nathan Bolton MD PCP - General Family Medicine 11/09/20 Kier Pleater Relationship Specialty Start Date End Date Nathan Bolton MD [address] [place] [address] PCP - General Family Medicine 07/29/20 FOR RECORDS PERTAINING TO PATIENTS WHO [...] BE BASED ON THE PRIMARY CLINICAL RECORDS. [facility]. provides no warranty or guarantee of the accuracy or completeness of information in this document.
--- NOTE | 2024-09-23 07:39 | ED_ITS ---
HPI HPI - General Adult General Chief complaint: Fall Stated complaint: FALL Time Seen by Provider: 09/23/24 07:32 Source: patient Mode of arrival: ambulance History of Present Illness HPI narrative: Patient presents to ED via EMS after a fall. He said he fell last night at 530. He said he got dizzy and then fell backwards. He complains of left-sided rib pain. He said he did not hit his head and has no headache at this time. He denies any neck pain. He does have a history of Parkinson's. He said he did not come last night because he did not want to. He said his wanted him to come. I asked how he was able to get up off the floor and he said very slowly but he was able to get up off the floor and did not lay on the floor all night. Patient is alert and oriented answering questions appropriately. Patient denies any hip or pelvis pain. No lower extremity pain. He denies any upper extremity pain. He just has pain in the left ribs and left back, worse with movement palpation and deep breathing. No complain at this time Related Data Home Medications ?Medication ?Instructions ?Recorded ?Confirmed carbidopa 25 mg-levodopa 100 mg 1.5 tab PO .4 times per day 02/07/23 09/23/24 tablet glipizide 5 mg tablet 5 mg PO DAILY 02/07/23 09/23/24 meloxicam 7.5 mg tablet 7.5 mg PO DAILY 02/07/23 09/23/24 rasagiline 1 mg tablet 1 mg PO DAILY 02/07/23 09/23/24 simvastatin 40 mg tablet 40 mg PO .QHS 02/07/23 09/23/24 aspirin 81 mg capsule 81 mg PO DAILY 09/23/24 09/23/24 empagliflozin 25 mg tablet mg 09/23/24 (Jardiance) magnesium 250 mg tablet 250 mg PO DAILY 09/23/24 09/23/24 metformin 500 mg tablet 500 mg PO BID 09/23/24 09/23/24 multivitamin 1 tab PO DAILY 09/23/24 09/23/24 omeprazole 40 mg capsule,delayed 40 mg PO BID 09/23/24 09/23/24 release Previous Rx's ?Medication ?Instructions ?Recorded lidocaine 5 % topical patch 1 patch topical DAILY #15 ea 09/23/24 tramadol 50 mg tablet 50 mg PO Q8H PRN pain #14 tabs 09/23/24 Allergies Allergy/AdvReac Type Severity Reaction Status Date / Time No Known Drug Allergies Allergy Verified 09/23/24 07:30 Opioid HPI Opioid Management Most Recent Opioid Data: Last Pain Scale 10 09/23/24 07:59 09/23/24 Last ED Pain Assessment 09/23/24 07:35 Last MAR Pain Assessment 09/23/24 07:59 Review of Systems ROS Status of ROS 10 or more systems reviewed and unremark able except as noted in history and below PFSH PFSH Social History Smoking status: Never smoker Little interest or pleasure in doing things: not at all Feeling down, depressed, or hopeless: not at all Exam Narrative Exam Narrative: Time Seen: [] Vital Signs: [Per nurse's notes.] General: [Alert] Skin: [Warm, dry, no rash.] Head: [Normocephalic, atraumatic.] Neck: [Supple, trachea midline.] Eye: [Pupils are equal, round and reactive to light, extraocular movements are intact, normal conjunctiva.] Ears, nose, mouth and throat: oral mucosa moist. Cardiovascular: [Regular rate and rhythm, no murmur.] Respiratory: [Lungs are clear to auscultation, respirations are non-labored, breath sounds are equal.] Chest wall: [Tenderness to palpation left chest and around to the back on the left ribs. No crepitus felt. Breath sounds present bilaterally. Gastrointestinal: [Soft, nontender, non distended, normal bowel sounds.] MSK: 5 out of 5 muscle strength x 4 extremities no calf pain or edema, no hip pain with internal or external rotation Psychiatric: [Cooperative, appropriate mood & affect.] Neurological: [Alert and oriented to person, place, time, and situation, no focal neurological deficit observed.] Constitutional Vital Signs, click to edit/add: Last Vital Signs Temp 97.6 F 09/23/24 07:30 Pulse 81 09/23/24 10:00 Resp 16 09/23/24 10:00 BP 131/86 09/23/24 10:00 Pulse Ox 94 L 09/23/24 10:00 O2 Del Method Room Air 09/23/24 10:00 Course Vital Signs Vital signs: Vital Signs Temperature 97.6 F 09/23/24 07:30 Pulse Rate 75 09/23/24 07:30 Respiratory Rate 16 09/23/24 07:30 Blood Pressure 139/87 09/23/24 07:30 Pulse Oximetry 99 09/23/24 07:30 Oxygen Delivery Method Room Air 09/23/24 07:30 Temperature 97.6 F 09/23/24 07:30 Pulse Rate 81 09/23/24 10:00 Respiratory Rate 16 09/23/24 10:00 Blood Pressure 131/86 09/23/24 10:00 Pulse Oximetry 94 L 09/23/24 10:00 Oxygen Delivery Method Room Air 09/23/24 10:00 Medical Decision Making MDM Narrative Medical decision making narrative: Patient CT showed an isolated ninth rib fracture on the left. No pneumothorax. Patient is here with his and family member and they state they can take care of him at home. The house is ADA accessible and he typically uses a walker but the will have him use a wheelchair for now. Patient instructed to follow-up with his family doctor. He was given pain medication and lidocaine patches for home. Return to ED if worsening symptoms. Patient and family are comfortable with care plan for home. Incentive spirometer given for home and prescription for wheelchair was written. Differential Diagnosis Differential Diagnosis: Fracture strain sprain contusion fall Lab Data Lab results reviewed: Yes I reviewed the patient's lab results Labs: Lab Results 09/23/24 Range/Units 07:55 WBC 7.6 (4.0-11.0) 10^3/uL RBC 5.54 (4.70-6.10) 10^6/uL Hgb 17.2 (14.0-18.0) g/dL Hct 49.9 (42.0-54.0) % MCV 90.1 (80.0-94.0) fL MCH 31.0 (25.9-34.0) pg MCHC 34.5 (29.9-35.2) g/dL RDW 13.0 (11.0-15.0) % Plt Count 107 L (150-450) 10^3/uL MPV 11.2 (9.5-13.5) fL Neut % (Auto) 74.2 (43.0-75.0) % Lymph % (Auto) 15.5 L (20.5-60.0) % [place] % (Auto) 7.6 (1.7-12.0) % Eos % (Auto) 1.7 (0.9-7.0) % Baso % (Auto) 0.3 (0.2-2.0) % Neut # (Auto) 5.7 (1.4-6.5) 10^3/uL Lymph # (Auto) 1.2 (1.2-3.8) 10^3/uL [place] # (Auto) 0.6 (0.3-0.8) 10^3/uL Eos # (Auto) 0.1 (0.0-0.7) 10^3/uL Baso # (Auto) 0.0 (0.0-0.1) 10^3/uL Abs Immat Gran (auto) 0.05 H (0.00-0.03) 10^3/uL Imm/Tot Granulo (auto) 0.7 H (0.0-0.5) % Sodium 141 (136-145) mmol/L Potassium 4.0 (3.5-5.1) mmol/L Chloride 104 (98-107) mmol/L Carbon Dioxide 28.4 (21.0-32.0) mmol/L Anion Gap 12.6 BUN 13.0 (7.0-18.0) mg/dL Creatinine 1.08 (0.70-1.30) mg/dL Est GFR ( Amer) >60 (>=60 mL/min/1.73m^2) Est GFR (Non-Af Amer) >60 (>=60 mL/min/1.73m^2) BUN/Creatinine Ratio 12.0 Glucose 161 H (74-106) mg/dL Calcium 9.4 (8.5-10.1) mg/dL Total Bilirubin 0.8 (0.2-1.0) mg/dL AST 28 (15-37) U/L ALT 21 (16-63) U/L Alkaline Phosphatase 69 (46-116) U/L Troponin I High Sens 6.6 (4.0-76.1) pg/mL Total Protein 7.0 (6.4-8.2) g/dL Albumin 3.8 (3.4-5.0) g/dL Globulin 3.2 g/dL Albumin/Globulin Ratio 1.[address] scan - chest: My impression: Ninth rib fracture no pneumothorax ECG Data Attestation: I personally reviewed and interpreted this ECG as follows: Interpretation: EKG INTERPRETATION Time: [] 744 Rate: [] 76 Rhythm: _ [] Normal sinus rhythm ST segments: _ [] No acute ST elevation or depression incomplete right bundle branch block T waves: _ [] Ectopy: _ [] P wave/IA interval: _ [] QRS interval: _ [] QT interval: _ [] Comparison: _ [] Comparison EKG date: [] 02/03/2024, no acute changes Performed by: [self] Discharge Plan Discharge Chief Complaint: Fall Clinical Impression: Fall, Closed rib fracture Patient Disposition: Home, Self-Care Time of Disposition Decision: 09:51 Condition: Good Mode of Transportation: Private Vehicle Prescriptions / Home Meds: New tramadol 50 mg tablet 50 mg PO Q8H PRN (Reason: pain) Qty: 14 0RF lidocaine 5 % adhesive patch,medicated 1 patch topical DAILY Qty: 15 0RF Rx Instructions: leave on most painful area for up to 12 hrs No Action Jardiance 25 mg tablet aspirin 81 mg capsule 81 mg PO DAILY omeprazole 40 mg capsule,delayed release(DR/EC) 40 mg PO BID metformin 500 mg tablet 500 mg PO BID magnesium 250 mg tablet 250 mg PO DAILY multivitamin Tablet 1 tab PO DAILY carbidopa-levodopa 25-100 mg tablet 1.5 tab PO .4 times per day glipizide 5 mg tablet 5 mg PO DAILY meloxicam 7.5 mg tablet 7.5 mg PO DAILY rasagiline 1 mg tablet 1 mg PO DAILY simvastatin 40 mg tablet 40 mg PO .[facility] Print Language: Mohawk Instructions: Rib Fracture (ED) Referrals: Nathan Hartman MD [Primary Care Provider] - 1 week Discharge Date/Time: 09/23/24 10:10
[2024-09-23] MEDS: MORPHINE SULFATE 4 MG/ML VIAL IV (07:59)
[2024-09-23 08:13] LABS: Basophils Percent Auto 0.3 % (0.2-2.0); Eosinophils Absolute Auto 0.1 10^3/uL (0.0-0.7); Eosinophils Percent Auto 1.7 % (0.9-7.0); Hematocrit 49.9 % (42.0-54.0); Hemoglobin 17.2 g/dL (14.0-18.0); Immature Granulocytes Abs Auto 0.05 10^3/uL (0.00-0.03); Immature Granulocytes Pct Auto 0.7 % (0.0-0.5); Lymphocytes Absolute Auto 1.2 10^3/uL (1.2-3.8); Lymphocytes Percent Auto 15.5 % (20.5-60.0); Mean Corpuscular HGB Conc 34.5 g/dL (29.9-35.2); Mean Corpuscular Volume 90.1 fL (80.0-94.0); Mean Platelet Volume 11.2 fL (9.5-13.5); Monocytes Absolute Auto 0.6 10^3/uL (0.3-0.8); Monocytes Percent Auto 7.6 % (1.7-12.0); Neutrophils Absolute Auto 5.7 10^3/uL (1.4-6.5); Neutrophils Percent Auto 74.2 % (43.0-75.0); Platelet Count 107 10^3/uL (150-450); Red Blood Count 5.54 10^6/uL (4.70-6.10); White Blood Count 7.6 10^3/uL (4.0-11.0)
[2024-09-23 08:29] LABS: Alanine Aminotransferase 21 U/L (16-63); Albumin Globulin Ratio 1.2; Albumin Level 3.8 g/dL (3.4-5.0); Alkaline Phosphatase 69 U/L (46-116); Anion Gap 12.6; Aspartate Amino Transferase 28 U/L (15-37); Bilirubin Total 0.8 mg/dL (0.2-1.0); Calcium 9.4 mg/dL (8.5-10.1); Carbon Dioxide 28.4 mmol/L (21.0-32.0); Chloride 104 mmol/L (98-107); Estimated GFR (African America >60 (>=60 mL/min/1.73m^2); Estimated GFR (Non-African Ame >60 (>=60 mL/min/1.73m^2); Globulin 3.2 g/dL; Glucose 161 mg/dL (74-106); Sodium 141 mmol/L (136-145)
[2024-09-23 08:32] LABS: Troponin I High Sensitivity 6.6 pg/mL (4.0-76.1)
== END 2024-09-23 10:10 | disposition home or self-care (01) ==
PROVIDERS: Emergency Provider Emergency Medicine; PCP Family Medicine
DX: S22.32XA Fracture of one rib, left side, initial encounter for closed fracture (principal); W18.39XA Other fall on same level, initial encounter; G20.A1 Parkinson's disease without dyskinesia, without mention of fluctuations
CPT/HCPCS: 36415; 70450; 71250; 80053; 84484; 85025; 93005; 96374; 99285; J2270

== ENCOUNTER 2024-11-06 09:00 | Outpatient (OUT) | payer MEDICARE, SELFPAY ==
--- OUTSIDE RECORDS SUMMARY | 2024-11-06 09:18 | XMS_ITS | CCD ---
Author Organization [facility] Care Team Providers Care Show Host/Hostess Name Role Phone Nathan Bolton Primary Care Provider [phone] [address] ., DR NIKHIL Ross Admitting Unavailable [...] Care Unavailable GOSTKOCECY, DONALD T Referring Unavailable DONALD ALBERTS Attending Unavailable NATHAN BOLTON Primary Care Unavailable Nathan Bolton MD Primary Care Provider Nathan Bolton Primary Care Provider YOBANY GONZALES Referring Unavailable NATHAN BOLTON Primary Care Unavailable YOBANY GONZALES Attending Unavailable NATHAN BOLTON Referring Unavailable HOANG, NATHAN Primary Care Unavailable Nathan Bolton MD Primary Care Provider [phone] DONALD ALBERTS Referring Unavailable DONALD ALBERTS Attending Unavailable NATHAN BOLTON Primary Care Unavailable GOSTYULI, DONALD Attending Unavailable NTAALIYAERENATHAN Meneses Primary Care Unavailable NATHAN BOLTON Primary Care Unavailable Gostkocecy GARNER, Donald T Attending Unavaila ble Aristeo GARNER, Donald T Admitting UnavailNathan Bennett MD Primary Care Provider [phone] NATHAN BOLTON Attending Unavailable NATHAN BOLTON Attending Unavailable AYAZ SANTO Attending Unavailable NADERER, NATHAN Attending Unavailable RUSHERAYAZ Attending Unavailable VENITAWSHAIKH COTO Attending Unavailable SHAIKH GILLILAND Attending Unavailable NADERER, NATHAN Attending Unavailable RUSHER, YAAZ Alonso Attending Unavailable NADERER, NATHAN Attending Unavailable RUSHER, AYAZ Alonso Attending Unavailable Medications Current Medications Medication Drug Class(es) Dates Sig (Normalized) Sig (Original) 8 hr acetaminophen 650 mg extended release oral tablet (16 sources) take 1 tablet by mouth every eight hours as needed for pain acetaminophen (Tylenol 8 Hour) 650 MG ER tablet Take 650 mg by mouth every 8 (eight) hours if needed for mild pain. Do not crush, chew, or split. Active acetaminophen 325 mg / oxyCODONE hydrochloride 5 mg oral tablet (1 source) Opioid Agonist oxyCODONE-acetam varghese phen (Percocet) 5-325 MG tablet every 4 (four) hours if needed for severe pain Active aspirin 81 mg delayed release oral [...] evening and 2 tablets before bedtime. 1 /2 tab 4x daily. Active Comment on above: [...] hyperglycemia, without long-term current use of insulin (CMS/[facility]) Take 1 tablet (500 mg) by mouth [...] mg once daily. Multiple Vitamin (multivitamin) tablet (16 sources) take 1 tablet by mouth in the morning Multiple Vitamin (multivitamin) tablet Take 1 tablet by mouth in the morning. Active take 1 tablet by mouth in the mo rning Multiple Vitamin (multivitamin) tablet Take 1 tablet by mouth in the morning. 0 Active kyvdbxic-czdt-ZR-calcium &mi ns (THERAGRAN-M) 9 mg iron-400 mcg tablet (1 source) wcjrgmds-ynwm-ZC -calcium &mins (THERAGRAN-M) 9 mg iron-400 mcg tablet Take 1 tablet by mouth in the morning. Active multivit-minerals/FA/lycopen e (ONE-A-DAY MEN'S ORAL) (16 sources) multivit-mineral s/FA/lycopene (ONE-A-DAY MEN'S ORAL) Take by mouth once daily. Active multivit-mineral s/FA/lycopene (ONE-A-DAY MEN'S ORAL) Take by mouth once daily. 0 Active Comment on above: Take by mouth once d aily. omeprazole 40 mg delayed release oral capsule (20 sources) Proton Pump Inhibitor Start: 10-19-2024 omeprazole (PriLOSEC) [address] capsule Indications: Epigastric abdominal pain TAKE 1 CAPSULE IN THE MORNING BEFORE A MEAL. DO NOT CRUSH OR CHEW 90 capsule 3 10/19/2024 Active Start: 02-17-2024 take 1 capsule by mo uth before mealtime omeprazole (PriLOSEC) [address] [...] (20 sources) HMG-CoA Reductase Inhibitor Start: 9 take 1 tablet by mouth at bedtime simvastatin (Zocor) 40 MG tablet Indications: Dyslipidemia (CMS/HCC) Take 1 tablet (40 mg) by mouth at bedtime 90 tablet 3 02/17/2024 Active Comment on above: 40 mg daily at bedti me. SITagliptin 100 mg oral tablet (2 sources) Dipeptidyl Peptidase 4 Inhibitor Start: 5 take 1 tablet by mouth once daily SITagliptin (Januvia) 100 MG tablet Indications: Type 2 diabetes mellitus with hyperglycemia, without long-term current use of insulin (CMS/HCC) Take 1 tablet (100 mg) by mouth Daily 30 tablet 5 10/02/2024 Active vitamin e 268 mg oral capsule (20 [...] Problem Classification Problem Date Documented Date Episodic/Chronic Calculus of urinary tract (2 sources) Kidney stone; Translations: [Calculus of kidney] Onset: 10-02-2024 10-02-2024 Episodic Cataract (8 sources) Age-related nuclear cataract, right eye; Translations: [Age-related nuclear cataract, left eye] Onset: 08-30-2022 Chronic Diabetes mellitus with complications (20 sources) Type 2 diabetes mellitus with hyperglycemia; Translations: [Type 2 diabetes mellitus] Onset: 11-26-2022 Chronic Diabetes mellitus without complication (1 source) Type 2 diabetes mellitus without complications; Translations: [TYPE 2 DM WITHOUT COMPLICATIONS] Onset: 08-31-2022 Chronic Disorders of lipid metabolism (18 sources) Hyperlipidemia, unspecified; Translations: [Pure hypercholesterolemia, unspecified] Onset: 08-31-2022 09-10-2023 Chronic Essential hypertension (19 sources) Essential (primary) hypertension; Translations: [Benign essential hypertension] Onset: 11-29-2022 09-10-2023 Chronic Immunity disorders (2 sources) Secondary immune deficiency disorder; Translations: [Immunodeficiency due to conditions classified elsewhere ([facility])] 06-01-2024 Chronic Mycoses (3 sources) Onychomycosis due to dermatophyte ; Translations: [Tinea unguium] 07-07-2024 Episodic Osteoarthritis (17 sources) Unspecified osteoarthritis, unspecified site; Translations: [Degenerative joint disease involving multiple joints] Onset: 08-31-2022 09-10-2023 Chronic Other acquired deformities (1 source) Other forms of scoliosis, lumbar region; Translations: [OTHER FORMS SCOLIOSIS LUMBAR REGION] Onset: 05-18-2022 Chronic Other aftercare (1 source) Other long-term (current) drug therapy; Translations: [OTH SENIOR CARE CURRENT DRUG THERAPY] Onset: 12-15-2022 Episodic Other aftercare (1 source) roasterman (current) use of aspirin; Translations: [CARTON STAPLER CURRENT USE OF ASPIRIN] Onset: 12-15-2022 Episodic Other aftercare (1 source) FPC (current) use of oral hypoglycemic drugs; Translations: [CARTON STAPLER USE ORAL HYPOGLYCEMIC DX] Onset: 12-15-2022 Episodic Other connective tissue disease (6 sources) Pain in toe; Translations: [Pain in right toe(s)] 07-07-2024 Episodic Other fractures (2 sources) Closed fracture of one rib; Translations: [Fracture of one rib, left side, subsequent encounter for fracture with routine healing] Onset: 10-02-2024 10-02-2024 Episodic Other nervous system disorders (1 source) [...] Onset: 05-09-2021 05-09-2021 Chronic Other skin disorders (3 sources) Dystrophia unguium; Translations: [Nail dystrophy] 07-07-2024 [...] forearm, initial encounter] Onset: 06-30-2022 Episodic Unclassified (18 sources) Symptomatic parkinsonism; Translations: [Parkinson disease, symptomatic] Onset: 09-10-2023 09-10-2023 Chronic Unclassified (4 sources) LOW BACK PAIN, UNSPECIFIED; Translations: [LOW BACK PAIN, UNSPECIFIED] Onset: 05-18-2022 Unclassified (1 source) CONTACT W/AND (SUSP) EXPOS COVID-19; Translations: [CONTACT W/AND (SUSP) EXPOS COVID-19] Onset: 05-23-2022 Past or Other Problems Problem Classification Problem Date Documented Da te Episodic/Chronic Abdominal pain (17 sources) Epigastric pain; Translations: [Epigastric pain] Onset: 09-10-2023 09-10-2023 Episodic Diseases of mouth; excluding dental (15 sources) Excessive salivation; Translations: [Disturbances of salivary secretion] Onset: 12-05-2022 Episodic E Codes: Fall (14 sources) Unspecified fall, initial encounter; Translations: [Fall] Onset: 12-15-2022 12-11-2023 Episodic Genitourinary symptoms and ill-defined conditions (19 sources) Lefty hematuria; Translations: [Gross hematuria] Onset: 12-21-2020 Resolved: 10-02-2024 09-10-2023 Episodic Melanomas of skin (1 source) Personal history of malignant melanoma of skin; Translations: [PERSONAL HX MALIGNANT MELANOMA SKIN] Onset: 08-31-2022 Episodic Other aftercare (12 sources) Long-term current use of drug therapy; Translations: [Other long term care social worker (current) drug therapy] Onset: 12-02-2023 12-02-2023 Episodic Other aftercare (1 source) Patient encounter status; Translations: [Other long term care social worker (current) drug therapy] Onset: 12-02-2023 12-02-2023 Episodic Other diseases of bladder and urethra (1 source) Unspecified bulbous urethral stricture, male; Translations: [Urethral stricture, unspecified] Onset: 03-06-2021 05-25-2024 Episodic Other fractures (13 sources) Closed fracture of sternum; Translations: [Fracture of body of sternum, subsequent encounter for fracture with routine healing] Onset: 02-04-2024 Resolved: 10-02-2024 03-05-2024 Episodic Other nervous system disorders (13 sources) Abnormal gait; Translations: [Unsteadiness on feet] Onset: 03-05-2024 03-05-2024 Episodic Other screening for suspected conditions (not mental disorders or infectious disease) (20 sources) Raised prostate specific antigen; Translations: [Elevated [...] Spondylosis; intervertebral disc disorders; other back problems (13 sources) Chronic low back pain; Translations: [Chronic midline low back pain without sciatica] Onset: 12-11-2023 12-11-2023 Episodic Sprains and strains (6 sources) Strain of calf muscle; Translations: [Strain of other muscle(s) and tendon(s) at lower leg level, unspecified leg, subsequent encounter] Onset: 09-07-2024 Resolved: 10-02-2024 09-07-2024 Episodic Unclassified (1 source) LOW BACK PAIN, UNSPECIFIED; Translations: [LOW BACK PAIN, UNSPECIFIED] Onset: 05-15-2022 Results Test Name Value Interpretation Reference Range Facility Provider Orderson 07-15-2024 Provider Orders [id number] #[id number] [facility] 07-14-2024 [facility] Telephone (NRESAV) HERRERA MARTINEZ ([id number]) 1945 M Date Time Provider Department 07/14/24 DONALD ALBERTS [facility] During your visit today, we recorded the following information about you: Kathleen Flanagan LPN 07/14/2024 3:15 PM Addendum 07/14/2024 S.Ana POC received from [facility]. Dr. Alberts reviewed and signed. POC [...] Encounter Status:Closed by KATHLEEN FLANAGAN on 07/14/24 [facility] Coding Summaryon 06-30-2024 Coding Summary HTMLBase 64 MqhkanxkTBu2nKt+PGhl YWQ+GT1MCEZtW02pnOFm yK9sP1FIYAhAOttkKYEA UAwHMzEytrTpTE3doEMy ZXJu IC8+LY7tQQMsBshuwKWo j2J7rTT2S45kts5zIFkb qLP5ZWVaRuVmezwch5ky hYf1SCtjGteqZjAd DXObsY13NDO2pX05Ux49 gJSfyFNrq0tjoZw2OlYl NFBfEFI5uGspMHvis7Qr VQJtE37weJUwk7K9 IGNvbGxhcHNlOyBlbXB0 uT9kYGisngbeo7ijjqch Cpf6cb74bOIek4K9jOV5 Q5YcbbG5HRFipMMx OiczdSTEyV7dpkquf4tk bucjZlWqYDNhUBk6SAh7 YURucRtjXhCrKM49WRS1 PTQoljGvI4UeJOLh qLlgIuS2c8R8Jz3TS6AH WdssZ3NIJGREKBniaGY+ MG72oq88P2NiRkfjUsl3 DSAuMXQ8eJH1aY9i XHSeXAzqf3N1eAG8L2Wt ziAysq7jp1jvOFFxAIoz P35skJFtw9N8IKEqpAL6 QOZimHeiKiEcjA14 Oyc+ULUpcDavz2OnVhzj y6eal2wosHt3UfbaXMJq exFjgKbpJUL9s7YgPa7g RJKihIE8eBZ7mL6t FaWwQzO2VUltG594SlEx qQPjYifeX04xX2XthLD+ FPYsKrv5FCOfnUnuYK7x C0MuXEPpolbfmJCe oPsbCM9nXWJpjlizLZVl gX2sBXAiO6k5UsUzIwF9 SHlxQ4VvHYBqxgssXm80 kZ1lDhJvPbS9CNrv P4ZaklO9DFIgqAEdTBby HYC4D29tt5B7GFBwMXJh GKP1xWB9nY6flDgabxui bGVmdDsgdmVydGlj OWqvYHfwU151XRJqmRci PkNvZGluZyBEYXRlOiAg MTIvMDMvMjAyNDwvdGQ+ KRMbECR8wVekBSBv iLLyEXzoJr5tjYtsxGvx HY5aFADniytlJNBjhE8g NQOxpGSjzZtaSV3tCYZx njhbn014LhVyEAF1 BKLsyLDkK9RxhE3lWsKu TEPwBWFlF7AjgDBpUJis I748ZNgpRvH6JLHifdXm F7LeKKWajUvdYfW1 g7I6Al8Iw7GlnxvxF7Ti bLWtBzEiSgbfWWy9U1Xl PjwvdHI+DQ48OBMbQR78 LNa9AVP4vDltJRcc RIEmX8QciV9uIzGdOONm ZGRkOyc+PHRhYmxlIHdp ZHRoPScxMDAlJyBzdHls DJ8yGg6uGOIbCOVu mObmgXSpEiFcf5jxUEHx EVfvKM7qgUjiZ5ZmiKJ3 CFCbs4w3Vu85H35sD2Xx dXA+JNUgkMN9wXJ4 lU8pOfTdCzF1TImnO998 DrIxcWObCffxb6jqu6un tXl7KqH4XNFmnbYvzFgb DBT8z1FhYk44R36h IHdpZHRoPSIxNSUiIHZh lFffoy4akH7fTz9+PGNv fIL1bKY0xA3nUrMaSvT3 VMvoG175KuZluMDb Dilad4jyt9upvYy2JhDu RREtlrNugXnqWVC2g1Fd Rs38Z3LwwCoig5MxZxi2 xz61rXDfl6V7jZR4 O1KfLHKfeyakqCGxyIzf UB7aRIZbzmgsSAKvhZ8z BNBgB1l7NxHkBlL9EGzh U8DhpoH6PMTjsKZr UWTdmRHZuR5wgpznz3hc wkulKzUjPESjVUu8VRu6 NNZvtZdxBqPfYWB4TrV1 PSH6kWNxzR5xqXrk pyeobW4eZfw+HYY2kJWw zFLGOP5vEvcibYM+PHRk FCX1jThhUMquUJTdsK0l AJNuO8e2AlNiMhW2 SJudI4SjjeS2VISxeUAe GLJzrIECjI3yfpzlw8gb qxzsPbAsIVZdNYy8BQm9 LWFsaWduOiBsZWZ0 MdS6SVT7aZTrgT0cxTaj cisxaY1yKth+QmlydGgg LQF8YAz3X4CxGze9ZUPj gAvqZW7bgKXjDGnd Ej4weKnjrWqkAF3nHJDb jnmdy095HnQcn1uiRPRo lGHtCGgtPGU0W72wr6E8 VXZbTLFuIJG5vOG8 dU7bqTmpbudirGDaxKcn jeWmgFapUScbRCrlN728 XYAmdTqjWmHrINt3K3Lx Dtn2YOVccWzyDB2z lFDkNCpeFt2giMzveIkc RK1dCLQbeoohx164PpYr p9zqSVIfqIRzBUjiSGJ2 H89oh2B4YTOwOBIb TTW7rNY6nC6dgHcswrju bGVmdDsgdmVydGljYWwt VJpvI483FXFzdJxcHqGg fNz6N5XjEys0QQFp pMhzBS8xgOXlGDtrHy7a fPmpoXaoQN2kOGOnhndo y022HhLgm5lmVEEtfREy BLeaRHC5T99zc4A6 DTPwFCCrHYV5rYB6jD1k bGlnbjogbGVmdDsgdmVy nMvcAChjIInqL763JXWw cDsnPlBhdGllbnQg QFpiGEk0Z2CwKkswiWY+ ZD67RNSiFE63cDSbyLAu c5uxrXb7YgUaVVMyFKV1 mSidGWpov6MzMZRo X45ebBZko2D4CVRmbRou vQOyOoWfaQU0bP3yWWmd ddhpf4ndootjWffxo8gg qa71uM33F15bUVow ZHRoPSIzMCUiIHZhbGln fg2ypK1xZp0+PGNvbCB3 yHY1fI7mCVBxWcV0CCvu R639ZfUgyHYgKjgu u8vsk9obnWv3IvP2CANm lkIddJneUNM3p0NzPr74 E85kERyzHCUdAABrTXSm ALOmfQeawu0gwY2g Ii8+YCAgcNN8mOM2zR8b JtGfVdM1GPxhP481WwIc kEKxNsvjH26pU3ZwpUH+ NAVkMvh2QZFawAef DY4puAOaKWlzLb1cMEG4 UsIgWyXtMYfpX9DhXTKq wdluljxadGG3AZSjOCFb cR72Bx2dnJwzHBAt sTFAhI9orwoei5mzpqoc RjWrHKYfZDx8SNa9QOPe vHmzBxNpEDA4UoY9FXV8 uNNtyK4jjVazmgqk qJ2cJ4KqMOPuqifnSz33 cS8mYxBbAvT8YChcPxe+ AHNMCDNIWIdjP2EEUQPS UkJBTjwvdGQ+PHRk ARC1cEwhVDjoGZMibN0d VSIrP9x7QlErLmK2CJwh C1YbJQSopgjcDo95kW5d EkBtXnP3BPisL1Xc azF2TERzvBLvYVgzFCT8 M51tw7U6EVOmSKGzMZO0 sWL0pJ3bvFprviraqGSr dDsgdmVydGljYWwt XEtjX547JRBhvPuaPlZk NcFeRzX4QPa4Q1UqHsw5 MJZskByiRB5hpOZvTGmi Cr5uyYgxeKvvQP0k ZYPdmhugCIFmeR8rTLAf nBQnjJxnYP4fOMOvshoo l160JeZrSCV6NZZltAKu B0IvsC8kNgWhNWMb SYVyF2VlaGNoTMxbJ360 YPdtLuN6WPDcbiZxG7Qc HVDikMxwWeY7m0E7Ho67 NyBZZWFyczwvdGQ+ QMTqWKL1lNjzSRwoJFCg vN6lCFBgI0k9JiGbCsW1 ZUzvG2FvBKQxsnzvLr82 bE8oAcFeBvV6OKxa V1KmptY9WGKkqOZvIVay COP9G84do5R7WOWaHPCk SQE9pVY2xJ4frEbcikmv bGVmdDsgdmVydGlj KJffLDdzY250WKAakTnn Ud7HNPF0W1RfXwc0BZNv jVoqRI7shVKfJBgqZk2f nVpoxQgxFC5zFTSp xztlYHXljJ3nDJBcbMFo aXsfTH8cXTWrecuqu499 ZyFyHLC6UOOgdLVpG7Wn tA3aOrRyXFPeDTSi S2PxoJVzQEkvL734CXux BkL8JRHdjuUqN1WoERCh rAjqTmY8w3V2Iu0ZWNS8 fyEabtqdD8V7jOF4 aWVudDwvdGQ+JG88zr94 N9CtAmxrJmr8MBMcNKA8 bXZ6pJ3kDBVpIQxve5E1 uMC9S5IvxrRulv4v q2mmOZXgNSsfD20eqPEz s2Q8CCExkKU6OJEioPrp WuMqlG83Ecm+PGNvbGdy k3XcEucif2trh9fg xZd7WtTmRTGvbgIjzFfs QMO5k9MwGf81V48fNCyb ZHRoPSIzMCUiIHZhbGln hu2ylI4vOq5+PGNv kKM9pSL4fI1fKvZnLzO1 JWrvY245LcNpvZRaBtaj s5mpe0jzbXf0DqFfKUAi ogEgwPtvVCE0x3Je Ab06L4VuiZjnl4JkAht9 qd21kZLee4U7hDT5D1Ui KDFgakmuvCXboIdyIX9g MKMjesbyNQAunE3x DPKxA0e7KmMtDmL0NMnb F8BdjdU4TYCcdCCmEIKk bQHYmE5kcbdzj8hrsihx MwJhOREhPFk3ERa5 DAQqtPlaZvWlVTP5LcL8 WAN9iMCbpY8uaMmgtcer dZ9gUar+BXj6a6toyECg IK2jfAL6IY19CQ75 cDIru9U3hQN4Y2CrZATi hyjhwklqxHN5ATIeFCSg fC22Om3sbEapBx1pDWPg JTY5YPVnrBFhG2Yh vW8lWsZuWBCrDCLfI4Ab yQEqDLgiL607UHrhYqV1 YRUvdkUyK8SjDFPviHxo MaE2k9O0Jp2ZGH78 ME30IG78dWCwj0P7oBU6 W8WwOQWhujxxixsqxFH3 VNGmWPXvkN70Sp6hoMpe Sd1fRRNeAKP8JJOb gTPoC3OctR3xKhLlJQNr HZWlD8ZndBHtYJbeK412 OAlrIwG1FQYejoGzO7Vk QCNntEdyUkU8k3A5 Ds7YNy34RW28KU51eGHh c8Z0gXT0T0HvSPAhsqzd equceXJ3OQChQZVpqY69 Ik1eyQkbUr0pDSAg ABT4AODusKGyD4QljE2s WsUeXVImOYUsV0EjrULd FGxoM622UJiaPmI7AYMl iiIcC5IyPGCafGug QxX2y7Z2Kv4PKFvxtwn9 P1DrVcjdeJT+NX39RXRh DL55qOMciKSws9hwqUf1 EpJsPDRtRHB8vBtw PSd (more content not included)... [facility] Provider Orderson 06-22-2024 Provider Orders [id number] #[id number] [facility] 06-19-2024 [facility] Telephone (NRESAV) ROHITHHERRERA ([id number]) 1945 M Date Time Provider Department 06/19/24 DONALD ALBERTS NRESAV During your visit today, we recorded the following information about you: Kathleen Flanagan LPN 06/19/2024 9:45 AM Signed 06/19/2024 Order sent via secured fax to [employer] at with confirmation of receipt received. Order [...] Encounter Status:Closed by KATHLEEN FLANAGAN on 06/19/24 [facility] (NRESAV) HERRERA AMRTINEZ ([id number]) 1945 M Date Time Provider Department 06/18/24 9:30 AM DONALD ALBERTS NRESAV During your visit today, we recorded the following information about you: Pulse Blood pressure 93/minute 131/75 Donald Alberts, 06/18/2024 10:18 AM Signed [facility] - FOLLOW UP EVALUATION Nathan Bolton MD [address] [place] [address] Dear Nathan Bolton MD: I had the pleasure of seeing Mr. Martinez for follow-up today. As you know he [...] mg onc (more content not included)... [facility] Telephone (NRESAV) ROHITHHERRERA ([id number]) 1945 M Date Time Provider Department 06/18/24 [...] Status:Closed by KATHLEEN FLANAGAN on 06/18/24 Normal [facility] MLR HEMOGLOBIN A1Con 024 Glucose [Mass/Vol] 229 mg/dL [facility] HbA1c (Bld) [Mass fraction] 9.6 % High 4.5 - 6.2 % [facility] Comment on above: ADA RECOMMENDED LIMI T 4.0 - 6.0 ADA THERAPEUTIC TARGET < 7.0 ACTION SUGGESTED > 7.0 Interpretation and review of laboratory results Abnormal [facility] Prostate specific Ag [Mass/V ol]on 05-18-2024 PROSTATIC SPEC ANT 4.50 ng/mL High 0.00-4.00 [facility] Comment on above: Result Comment: The method used for this test is Rhona Chago DXI chemiluminescent immunoassay. Values obtained by different assay methods cannot be used interchangeably. Performed By: #### 2 [id number] #### [facility] ([id number]) [address] [place] [address], [address] [place] [address] CNOVon 12-26-2023 CNOV Office Visit (NRESAV) HERRERA MARTINEZ ([id number]) 1945 M Date Time Provider Department 12/26/23 1:00 PM DONALD ALEBRTS NRESAV During your visit today, we recorded the following information about you: Pulse Blood pressure 74/minute 109/70 Donald Alberts, DO 12/26/2023 1:43 PM Signed [facility] - FOLLOW UP EVALUATION Donald Chanda Aristeo [address] [facility] [address] Nathan Bolton MD [address] [facility] [address] Herrera Martinez is a 78 year old male with a history of PD. He is seen with his . Interval History Since Last Visit: The patient is having more issues with falling. 4(four) falls. Going to PT and DtD. Better with U-STEP Walking Stabilizer Walker. Wearing-off causes lots of trouble with his walking. More festinating. More xinoiuho-wj-jyia (FOG). The patient denies any recent illness [...] Adult) P (more content not included)... Normal [facility] CNOVon 06-14-2023 CNOV Office Visit (NRESFV) ROHITH,HERRERA Read ([id number]) 1945 M Date Time Provider Department 06/14/23 3:00 PM DONALD ALBERTS NRESFV During your visit today, we recorded the following information about you: Pulse Blood pressure Weight Height 72/minute 118/61 76.1 kg 1.778 m Donald Alberts DO 06/14/2023 3:34 PM Signed [facility] - FOLLOW UP EVALUATION Nathan Bolton MD [address] [facility] [address] Herrera Read Rohith is a 77 year old male with a history of PD. He is seen with his . Interval History Since Last Visit: The patient had a swallowing test in late november 2022 - no issues other than more focus on swallowing was made to the patient. He is going to [facility] still. 1 fall in November o/w doing [...] Pulse 72 Ht (more content not included)... [facility]NRESFV[facility] HERRERA MARTINEZ ([id number]) 1945 M Date Time Provider Department 12/05/22 1:30 PM DONALD ALBERTS NRESFV During your visit today, we recorded the following information about you: Pulse Blood pressure Weight 61/minute 127/72 74.8 kg Donald Alberts DO 12/05/2022 2:18 PM Signed [facility] - FOLLOW UP EVALUATION Donald Alberts [address] [place] [address] Nathan Bolton MD [address] [facility] [address] Herrera Martinez is a 77 year old male with a history of parkinsonism. He is seen with family. Interval History Since Last Visit: He is falling. There is more vdifaidk-kz-bhlf (FOG) - this is the cause of the falls. He has fallen while he is carrying things. Multitasking is a big issue. There were two falls in the post op period following cataract surgery. FOG seems to be worse in the PM. There is drooling at night. The mucous in the back of the throat is the issue. 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 The Sinemet is not [...] no evid (more content not included)... Normal [facility] CBC AUTO DIFFon 11-26-2022 BASO # 0.0 103/ul Normal 0.0-0.1 [facility] Comment on above: Performed By: #### C BC #### [facility] [address] [place] [address] Dr. Joaquín Rodriguez Basophils/100 WBC (Bld) 0.4 % Normal 0.2-2.0 [facility] Comment on above: Performed By: #### C BC #### [facility] [address] [place] [address] Dr. Joaquín Rodriguez EO # 0.1 103/ul Normal 0.0-0.7 [facility] Comment on above: Performed By: #### C BC #### [facility] [address] [place] [address] Dr. Joaquín Rodriguez Eosinophils/100 WBC (Bld) 2.6 % Normal 0.9-7.0 [facility] Comment on above: Performed By: #### C BC #### [facility] [address] [place] [address] Dr. Joaquín Rodriguez Erythrocyte distribution width (RBC) [Ratio] 13.2 % Normal 11.0-15.0 [facility] Comment on above: Performed By: #### C BC #### [facility] [address] [place] [address] Dr. Joaquín Rodriguez Hematocrit (Bld) [Volume fraction] 47.0 % Normal 42.0-54.0 [facility] Comment on above: Performed By: #### C BC #### [facility] [address] [place] [address] Dr. Joaquín Rodriguez Hemoglobin (Bld) [Mass/Vol] 15.9 g/dL Normal 14.0-18.0 [facility] Comment on above: Performed By: #### C BC #### [facility] [address] [place] [address] Dr. Joaquín Rodriguez IG # 0.01 10e3/ul Normal 0.00-0.03 [facility] Comment on above: Performed By: #### C BC #### [facility] [address] [place] [address] Dr. Joaquín Rodriguez IG % 0.2 % Normal 0.0-0.5 [facility] Comment on above: Performed By: #### C BC #### [facility] [address] [place] [address] Dr. Joaquín Rodriguez LYMPH # 1.5 103/ul Normal 1.2-3.8 [facility] Comment on above: Performed By: #### C BC #### [facility] [address] [place] [address] Dr. Joaquín Rodriguez Lymphocytes/100 WBC (Bld) 30.0 % Normal 20.5-60.0 [facility] Comment on above: Performed By: #### C BC #### [facility] [address] [place] [address] Dr. Joaquín Rodriguez MANUAL DIFF REQ NO Normal [facility] Comment on above: Performed By: #### C BC #### [facility] [address] [place] [address] Dr. Joaquín Rodriguez MCH (RBC) [Entitic mass] 30.8 pg Normal 25.9-34.0 [facility] Comment on above: Performed By: #### C BC #### [facility] [address] [place] [address] Dr. Joaquín Rodriguez MCHC (RBC) [Mass/Vol] 33.8 g/dL Normal 29.9-35.2 [facility] Comment on above: Performed By: #### C BC #### [facility] [address] [place] [address] Dr. Joaquín Rodriguez MCV (RBC) [Entitic vol] 90.9 fL Normal 80.0-94.0 [facility] Comment on above: Performed By: #### C BC #### [facility] [address] [place] [address] Dr. Joaquín Rodriguez MONO # 0.4 103/ul Normal 0.3-0.8 [facility] General Comment on above: Performed By: #### C BC #### [facility] [address] [place] [address] Dr. Joaquín Rodriguez Monocytes/100 WBC (Bld) 7.5 % Normal 1.7-12.0 [facility] Comment on above: Performed By: #### C BC #### [facility] [address] [place] [address] Dr. Joaquín Rodriguez NEUT # 3.0 103/ul Normal 1.4-6.5 [facility] Comment on above: Performed By: #### C BC #### [facility] [address] [place] [address] Dr. Joaquín Rodriguez Neutrophils/100 WBC (Bld) 59.3 % Normal 43.0-75.0 [facility] Comment on above: Performed By: #### C BC #### [facility] [address] [place] [address] Dr. Joaquín Rodriguez Platelet mean volume (Bld) [Entitic vol] 11.2 fL Normal 9.5-13.5 [facility] Comment on above: Performed By: #### C BC #### [facility] [address] [place] [address] Dr. Joaquín Rodriguez PLT 128 103/ul Critically low 150-450 [facility] Comment on above: Performed By: #### C BC #### [facility] [address] [place] [address] Dr. Joaquín Rodriguez RBC 5.17 106/ul Normal 4.70-6.10 [facility] Comment on above: Performed By: #### C BC #### [facility] [address] [address] [address] Joaquín Rodriguez WBC 5.1 103/ul Normal 4.0-11.0 [facility] Comment on above: Performed By: #### C BC #### [facility] [address] [address] [address] Joaquín Rodriguez GLYCOHEMOGLOBIN A1Con 2022 ADA RECOMMENDATION SEE BELOW Normal [facility] [place] Comment on above: Result Comment: ADA RECOMMENDED LIMIT 4.0 - 6.0 ADA THERAPEUTIC TARGET < 7.0 ACTION SUGGESTED > 7.0 Performed By: #### A 1C #### [facility] [address] [place] [address] Dr. Joaquín Rodriguez Glucose [Mass/Vol] 235 mg/dL Normal [facility] Comment on above: Performed By: #### A 1C #### [facility] [address] [place] [address] Dr. Joaquín Rodriguez HbA1c (Bld) [Mass fraction] 9.8 % Critically high 4.5-6.2 [facility] Comment on above: Performed By: #### A 1C #### [facility] [address] [place] [address] Dr. Jaoquín Rodriguez LIPID PROFILEon 11-26-2022 CHOL-HDL RATIO NORM SEE BELOW Normal [facility] Comment on above: Result Comment: 3.3 - 4.4 LOW RISK 4.4 - 7.1 AVERAGE RISK 7.1 - 11.0 MODERATE RISK >11.0 HIGH RISK Performed By: #### L ZENY LIPID, BMP ####[facility] [address] [address]Dr. Joaquín Rodriguez Cholesterol [Mass/Vol] 145 mg/dL Normal <=200 [facility] Comment on above: Performed By: #### L IVTEN, LIPID, BMP ####[facility] [address] [address]Dr. Joaquín Rodriguez Cholesterol in HDL [Mass/Vol] 39 mg/dL Critically low 40-60 [facility] Comment on above: Performed By: #### L IVER, LIPID, BMP ####[facility] [address] [id number]. Joaquín Rodriguez Cholesterol in LDL [Mass/Vol] 70.8 mg/dL Normal [facility] Comment on above: Performed By: #### L IVER, LIPID, BMP ####[facility] [address] [id number]. Joaquín Rodriguez Cholesterol.total/Chol esterol in HDL [Mass ratio] 3.7 {ratio} Normal [facility] Comment on above: Performed By: #### L IVER, LIPID, BMP ####[facility] [address] [id number]. Joaquín Rodriguez HDL NORMAL > or = 60 mg/dl - LOW CARDIOVASCULAR RISK <40 mg/dl - HIGH CARDIOVASCULAR RISK Normal [facility] Comment on above: Performed By: #### L IVER, LIPID, BMP ####[facility] [address] [id number]. Joaquín Rodriguez LDL CALC NORMAL SEE BELOW Normal [facility] Comment on above: Result Comment: <100 mg/dl OPTIMAL 100 - 129 mg/dl NEAR OR ABOVE OPTIMAL 130 - 159 mg/dl BORDERLINE HIGH 160 - 189 mg/dl HIGH >190 mg/dl VERY HIGH Performed By: #### L IVER, LIPID, BMP ####[facility] [address] [id number]. Joaquín Rodriguez Triglyceride [Mass/Vol] 176 mg/dL Critically high <=150 [facility] Comment on above: Performed By: #### L IVER, LIPID, BMP ####[facility] [address] [id number]. Joaquín Rodriguez VLDL CALC 35.2 mg/dL Normal [facility] Comment on above: Performed By: #### L IVER, LIPID, BMP ####[facility] [address] [id number]. Joaquín Rodriguez LIVER PROFILEon 11-26-2022 Albumin [Mass/Vol] 3.9 g/dL Normal 3.4-5.0 [facility] Comment on above: Performed By: #### L IVTEN LIPID, BMP ####[facility] [address] [address]Dr. Joaquín Rodriguez Albumin/Globulin [Mass ratio] 1.0 {ratio} Normal [facility] Comment on above: Performed By: #### L IVER LIPID, BMP ####[facility] [address] [address]Dr. Joaquín Rodriguez ALP [Catalytic activity/Vol] 91 U/L Normal 46-116 [facility] Comment on above: Performed By: #### L IVTEN LIPID, BMP ####[facility] [address] [address]Dr. Joaquín Rodriguez ALT [Catalytic activity/Vol] 15 U/L Critically low 16-63 [facility] Comment on above: Performed By: #### L IVER LIPID, BMP ####[facility] [address] [place], [place] [address]Dr. Joaquín Rodriguez AST [Catalytic activity/Vol] 29 U/L Normal 15-37 [facility] Comment on above: Performed By: #### L IVTEN LIPID, BMP ####[facility] [address] [address]Dr. Joaquín Rodriguez BILI, CONJUGATED 0.2 mg/dL Normal 0.0-0.2 [facility] Comment on above: Performed By: #### L IVER LIPID, BMP ####[facility] [address] [address]Dr. Joaquín Rodriguez Bilirubin [Mass/Vol] 0.7 mg/dL Normal 0.2-1.0 [facility] Comment on above: Performed By: #### L IVTEN LIPID, BMP ####[facility] [address] [address]Dr. Joaquín Rodriguez Globulin (S) [Mass/Vol] 3.8 g/dL Normal [facility] Comment on above: Performed By: #### L IVER LIPID, BMP ####[facility] [address] [id number]. Joaquín Rodriguez Protein [Mass/Vol] 7.7 g/dL Normal 6.4-8.2 [facility] Comment on above: Performed By: #### L IVER, LIPID, BMP ####[facility] [address] [address]Dr. Joaquín Rodriguez MICROALBUMIN, RAND URon 05-0 mALB 3.5 mg/L Normal <=30.0 [facility] Comment on above: Performed By: #### M ALBR #### [facility] [address] [address] [address] Joaquín Rodriguez PROF CHEM 8 (BAS METB)on Anion gap [Moles/Vol] 10.8 mmol/L Normal [facility] Comment on above: Performed By: #### L IVER, LIPID, BMP ####[facility] [address] [address]Dr. Joaquín Rodriguez Calcium [Mass/Vol] 9.1 mg/dL Normal 8.5-10.1 [facility] Comment on above: Performed By: #### L IVER, LIPID, BMP ####[facility] [address] [address]Dr. Joaquní Rodriguez Chloride [Moles/Vol] 103 mmol/L Normal 98-107 [facility] Comment on above: Performed By: #### L IVER, LIPID, BMP ####[facility] [address] [phone]. Joaquín Rodriguez CO2 [Moles/Vol] 29.7 mmol/L Normal 21.0-32.0 [facility] Comment on above: Performed By: #### L IVER, LIPID, BMP ####[facility] [address] [address]Dr. Joaquín Rodriguez Creatinine [Mass/Vol] 0.97 mg/dL Normal 0.70-1.30 [facility] Comment on above: Performed By: #### L IVER, LIPID, BMP ####[facility] [address] [id number]. Joaquín Rodriguez EGFR-AF AFGHAN >60 Normal >=60 [facility] Comment on above: Performed By: #### L IVER, LIPID, BMP ####[facility] [address] [phone]. Joaquín Rodriguez EGFR-NON AF AFGHAN >60 Normal >=60 [facility] Comment on above: Performed By: #### L IVER, LIPID, BMP ####[facility] [address] [phone]. Joaquín Rodriguez Glucose [Mass/Vol] 261 mg/dL Critically high 74-106 [facility] Comment on above: Performed By: #### L IVER LIPID, BMP ####[facility] [address] [address]Dr. Joaquín Rodriguez Potassium [Moles/Vol] 4.5 mmol/L Normal 3.5-5.1 [facility] Comment on above: Performed By: #### L IVER LIPID, BMP ####[facility] [address] [address]Dr. Joaquín Rodriguez Sodium [Moles/Vol] 139 mmol/L Normal 136-145 [facility] Comment on above: Performed By: #### L IVER LIPID, BMP ####[facility] [address] [phone]. Joaquín Rodriguez Urea nitrogen [Mass/Vol] 16.0 mg/dL Normal 7.0-18.0 [facility] Comment on above: Performed By: #### L IVER, LIPID, BMP ####[facility] [address] [address]Dr. Joaquín Rodriguez Urea nitrogen/Creatinine [Mass ratio] 16.5 mg/mg Normal [facility] Comment on above: Performed By: #### L IVER, LIPID, BMP ####[facility] [address] [address]Dr. Joaquín Rodriguez MR Brain WO contraston 06-20 IMPRESSION: No acute findings. No evidence of acute infarction, intracranial hemorrhage or intracranial mass lesion. Production Sorter: BIRGIT Transcribe Date/Time: Jun 20 2022 1:55P Dictated by : ANTHONY JONES MD This examination was interpreted and the report reviewed and electronically signed by: ANTHONY JONES MD on Jun 20 2022 2:02PM [facility] DIVISION OF RADIOLOGY * * *Final Report* * * DATE OF EXAM: Jun 20 2022 1:26PM [facility] 0294 - MRI BRAIN WO [...] tissues are unremarkable. DIVISION OF RADIOLOGY Provider, [facility] - 06/20/2022 * * *Final Report* * * DATE OF EXAM: Jun 20 2022 1:26PM [facility] 0294 - MRI BRAIN WO [...] infarction, intracranial hemorrhage or intracranial mass lesion. Production Sorter: [facility] Transcribe Date/Time: Jun 20 2022 1:55P Dictated by : ANTHONY JONES MD This examination was interpreted and the report reviewed and electronically signed by: ANTHONY JONES MD on Jun 20 2022 2:02PM EST [facility] Radiology Study observation (narrative) [facility] MR Brain WO contrastOrdered By: [facility] Provider on 06-20-2022 [facility] POINT OF CARE GLUCOSEon 04-29 Glucose [Mass/Vol] 180 mg/dL Critically high 74-106 T [facility] Comment on above: Performed By: #### P OCGLUC ####[facility] [address] [place], [place] [address]CxKlaudia Joaquín Michael Covid-19 PCR (CVDTBH)on 04-29 SARS-CoV-2 (COVID-19) RNA JAS+probe Ql (Unsp spec) Not detected Normal NOT DETECTED [facility] Comment on above: Result Comment: This test is not yet approved or cleared by the [place] FDA. When there are no FDA-approved or cleared tests available, and other criteria are met, FDA can make tests available under an emergency access mechanism called an Emergency Use Authorization (EUA). The EUA for this test is supported by the [place] of Health and Human Service's (HHS's) declaration [...] SARS-CoV-2. Performed By: #### C VDTB #### [facility] [address] [place] [address] Dr. Joaquín Rodriguez GLYCOHEMOGLOBIN A1Con 2021 ADA RECOMMENDATION SEE BELOW Normal [facility] Comment on above: Result Comment: ADA RECOMMENDED LIMIT 4.0 - 6.0 ADA THERAPEUTIC TARGET < 7.0 ACTION SUGGESTED > 7.0 Performed By: #### A 1C #### [facility] [address] [place] [address] Dr. Joaquín Rodriguez Glucose [Mass/Vol] 212 mg/dL Normal [facility] Comment on above: Performed By: #### A 1C #### [facility] [address] [address] [address] Joaquín Rodriguez HbA1c (Bld) [Mass fraction] 9.0 % Critically high 4.5-6.2 [facility] Comment on above: Performed By: #### A 1C #### [facility] [address] [place] [address] Dr. Joaquín Rodriguez Auth for Release of Medical Recordson 11-21-2020 Auth for Release of Medical Records [id number] #[id number]:[id number] Normal Agust[facility] Dermatopathologyon 0 Dermatopathology [facility] [address] [place] [id number] DERMATOPATHOLOGY REPORT Name:HERRERA MARTINEZ Klaudia [facility] Rec #. [id number] Location: [facility] Date of Procedure: 03/22/2020 Race: Date Received: [...] None Electronically Signed Out By NADER GALO MD/[facility] By the signature on this report, the individual or group listed as making the Final Interpretation/Diagn osis certifies that they have reviewed this case. Clinical History: Malignant melanoma. Excision. ([place] office) Specimens Submitted As: A: SKIN, RIGHT SUPERIOR LATERAL UPPER BACK Gross Description: Received in formalin is one lozano-brown piece of skin measuring 56 x 21 x 6 mm. The specimen is inked and embedded in toto in four blocks. The tips are in Block 1. [facility]/03/23/2020 Normal [facility] Comment on above: Performed By: #### D #### Dermatopathology Dermatopathologyon 0 Dermatopathology Pathologist: NADER GALO MD Date of Procedure: 02/10/2020 Date Received: 02/10/2020 Submitting Physician: SAÚL JHAVERI MD Location: [facility] Copy To/Referring/Attendi ng: HENRIK WHALEN DO FINAL DIAGNOSIS 4 SLIDES, [facility], #[id number] (BX: 01/06/2020) SKIN, RIGHT SUPERIOR LATERAL UPPER [...] melanocytes. The melanocytes stain with antibodies against [place]-1 and SOX-10. The deep margin focally transects the atypical melanocytes. Electronically Signed Out by NADER GALO M.D. CANCER SUMMARY REPORT A. 4 SLIDES, [facility], #[id number] (BX: 01/06/2020): Procedure: Biopsy, shave Specimen Laterality: [...] Submitted As: A: 4 SLIDES, [facility]ER[facility]OPATHOLOGY [facility], #[id number] (BX: 01/06/2020) Gross Description: Received for consultation from Dermatopathology Laboratory [facility] are four slides labeled [id number] (BX: 01/06/2020) along with the corresponding pathology report. Slide/Block Description 4 SLIDES, [id number]. Keep Slides: N Slides Returned: N Personal Consult: N Normal [facility] Comment on above: Performed By: #### D #### Dermatopathology Vital Signs Date Time Vital Sign Value Performing Clinician Facility 10-21-2024 10:39-0400 Body height 180.3 cm Ayaz Santo DPM Work Phone: [facility] 10-21-2024 10:39-0400 Body mass index (BMI) [Ratio] 20.75 kg/m2 Ayaz Santo DPM Work Phone: [facility] 10-21-2024 10:39-0400 Body weight 67.5 kg Ayaz Santo DPM Work Phone: [facility] 09-07-2024 11:24-0500 Body mass index (BMI) [Ratio] 21.31 kg/m2 Nathan Bolton MD Work Phone: [facility] 09-07-2024 11:24-0500 Body temperature 97 [degF] Nathan Bolton MD Work Phone: [facility] 09-07-2024 11:24-0500 Body weight 69.31 kg Nathan Bolton MD Work Phone: [facility] 09-07-2024 11:24-0500 Diastolic blood pressure 88 mm[Hg] Nathan Bolton MD Work Phone: [facility] 09-07-2024 11:24-0500 Heart rate 94 /min Nathan Bolton MD Work Phone: [facility] 09-07-2024 11:24-0500 SaO2% (BldA) [Mass fraction] 98 % Nathan Bolton MD Work Phone: [facility] 09-07-2024 11:24-0500 Systolic blood pressure 130 mm[Hg] Nathan Bolton MD Work Phone: [facility] 07-07-2024 09:36-0500 Body height 180.3 cm Ayaz Santo DPM Work Phone: [facility] 07-07-2024 09:36-0500 Body mass index (BMI) [Ratio] 22.04 kg/m2 Ayaz Santo DPM Work Phone: [facility] 07-07-2024 09:36-0500 Body weight 71.67 kg Ayaz Santo DPM Work Phone: [facility] 06-18-2024 09:44-0500 Diastolic blood pressure 75 mm[Hg] Donald Alberts DO Work Phone: [facility] 06-18-2024 09:44-0500 Heart rate 93 /min Donald Alberts DO Work Phone: [facility] 06-18-2024 09:44-0500 Systolic blood pressure 131 mm[Hg] Donald Alberts DO Work Phone: [facility] 06-01-2024 10:20-0500 Body height 180.3 cm Nathan Bolton MD Work Phone: [facility] 06-01-2024 10:20-0500 Body mass index (BMI) [Ratio] 22.04 kg/m2 Nathan Bolton MD Work Phone: [facility] 06-01-2024 10:20-0500 Body temperature 97.11 [degF] Nathan Bolton MD Work Phone: [facility] 06-01-2024 10:20-0500 Body weight 71.67 kg Nathan Bolton MD Work Phone: [facility] 06-01-2024 10:20-0500 Diastolic blood pressure 64 mm[Hg] Nathan Bolton MD Work Phone: [facility] 06-01-2024 10:20-0500 Heart rate 94 /min Nathan Bolton MD Work Phone: [facility] 06-01-2024 10:20-0500 Respiratory rate 18 /min Nathan Bolton MD Work Phone: [facility] 06-01-2024 10:20-0500 SaO2% (BldA) [Mass fraction] 97 % Nathan Bolton MD Work Phone: [facility] 06-01-2024 10:20-0500 Systolic blood pressure 128 mm[Hg] Nathan Bolton MD Work Phone: [facility] 05-25-2024 14:06-0400 Body height 180.3 cm Yobany Gonzales MD Work Phone: [facility] 05-25-2024 14:06-0400 Body mass index (BMI) [Ratio] 22.32 kg/m2 Yobany Gonzales MD Work Phone: [facility] 05-25-2024 14:06-0400 Body weight 72.58 kg Yobany Gonzales MD Work Phone: [facility] 05-25-2024 14:06-0400 Diastolic blood pressure 73 mm[Hg] Yobany Gonzales MD Work Phone: [facility] 05-25-2024 14:06-0400 Systolic blood pressure 128 mm[Hg] Yobany Gonzales MD Work Phone: [facility] 03-23-2024 10:07-0400 Body height 180.3 cm Ayaz Santo DPM Work Phone: [facility] 03-23-2024 10:07-0400 Body mass index (BMI) [Ratio] 22.32 kg/m2 Ayaz Santo DPM Work Phone: [facility] 03-23-2024 10:07-0400 Body weight 72.58 kg Ayaz Santo DPM Work Phone: [facility] 12-26-2023 13:04-0400 Diastolic blood pressure 70 mm[Hg] Donald Alberts DO Work Phone: [facility] 12-26-2023 13:04-0400 Heart rate 74 /min Donald Aristeo DO Work Phone: [facility] 12-26-2023 13:04-0400 Systolic blood pressure 109 mm[Hg] Donald Alberts DO Work Phone: [facility] 09-10-2023 11:47-0500 Body height 180.3 cm Nathan Bolton MD Work Phone: [facility] 09-10-2023 11:47-0500 Body mass index (BMI) [Ratio] 23.01 kg/m2 Nathan Bolton MD Work Phone: [facility] 09-10-2023 11:47-0500 Body temperature 97.5 [degF] Nathan Bolton MD Work Phone: [facility] 09-10-2023 11:47-0500 Body weight 74.84 kg Nathan Bolton MD Work Phone: [facility] 09-10-2023 11:47-0500 Diastolic blood pressure 70 mm[Hg] Nathan Bolton MD Work Phone: [facility] 09-10-2023 11:47-0500 Heart rate 89 /min Nathan Bolton MD Work Phone: [facility] 09-10-2023 11:47-0500 SaO2% (BldA) [Mass fraction] 99 % Nathan Bolton MD Work Phone: [facility] 09-10-2023 11:47-0500 Systolic blood pressure 130 mm[Hg] Nathan Bolton MD Work Phone: [facility] 12-05-2022 13:27-0400 Body weight 74.84 kg Donald Alberts DO Work Phone: [facility] 12-05-2022 13:27-0400 Diastolic blood pressure 72 mm[Hg] Donald Alberts DO Work Phone: [facility] 12-05-2022 13:27-0400 Heart rate 61 /min Donald Alberts DO Work Phone: [facility] 12-05-2022 13:27-0400 SaO2% (BldA) [Mass fraction] 99 % Donald Danicatyuli DO Work Phone: [facility] 12-05-2022 13:27-0400 Systolic blood pressure 127 mm[Hg] Donald Alberts DO Work Phone: [facility] 06-06-2022 16:21-0500 Body height 180.3 cm Donald Alberts DO Work Phone: [facility] 06-06-2022 16:21-0500 Body weight 74.39 kg Donald Alberts DO Work Phone: [facility] 06-06-2022 16:21-0500 Diastolic blood pressure 75 mm[Hg] Donald Mishratyuli DO Work Phone: [facility] 06-06-2022 16:21-0500 Heart rate 69 /min Donald Aristeo DO Work Phone: [facility] 06-06-2022 16:21-0500 SaO2% (BldA) [Mass fraction] 100 % Donald Aristeo DO Work Phone: [facility] 06-06-2022 16:21-0500 Systolic blood pressure 135 mm[Hg] Donald Aristeo DO Work Phone: [facility] Encounters Encounter Date Encounter Type Care Provider Facility Start: 10-21-2024 End: 10-21-2024 Bamboo flowsheet Ayaz Santo DPM Work Phone: [facility] Start: 10-21-2024 End: 10-21-2024 Bamboo flowsheet Ayaz Santo DPM Work Phone: [facility] Start: 10-21-2024 End: 10-21-2024 Patient encounter procedure Ayaz Santo DPM Work Phone: [facility] Comment on above: Dermatophytosis of n ail (Primary Dx); Dystrophic nail; Pain around toenail, right foot; Pain around toenail, left foot Start: 10-21-2024 End: 10-21-2024 ambulatory AYAZ SANTO Not Available Start: 10-02-2024 End: 10-02-2024 ambulatory NAHTAN BOLTON Not Available Start: 09-12-2024 End: 09-15-2024 Refill Donald Chaves Aristeo DO Work Phone: Neurology Comment on above: Refill Request Start: 09-07-2024 End: 09-07-2024 Bamboo flowsheet Nathan Bolton MD Work Phone: [facility] Start: 09-07-2024 End: 09-07-2024 Bamboo flowsheet Nathan Bolton MD Work Phone: [facility] Start: 09-07-2024 End: 09-07-2024 Office outpatient visit 15 minutes Nathan Bolton MD Work Phone: [facility] Comment on above: Strain of calf muscl e, subsequent encounter (Primary Dx) Start: 09-07-2024 End: 09-07-2024 ambulatory NATHAN BOLTON Not Available Start: 07-14-2024 End: 07-14-2024 Telephone encounter Donald Alberts DO Work Phone: Neurology Start: 07-07-2024 End: 07-07-2024 Bamboo flowsheet Ayaz Santo DPM Work Phone: [facility] Start: 07-07-2024 End: 07-07-2024 Bamboo flowsheet Ayaz Santo DPM Work Phone: [facility] Start: 07-07-2024 End: 07-07-2024 Patient encounter procedure Ayaz Santo DPM Work Phone: [facility] Comment on above: Dermatophytosis of n ail (Primary Dx); Dystrophic nail; Pain around toenail, right foot; Pain around toenail, left foot Start: 07-07-2024 End: 07-07-2024 ambulatory AYAZ SANTO Not Available Start: 06-29-2024 ambulatory NATHAN BOLTON Facility :[facility] Start: 06-19-2024 End: 06-19-2024 Telephone encounter Donald Alberts DO Work Phone: Neurology Start: 06-18-2024 End: 06-18-2024 Telephone encounter Donald Alberts DO Work Phone: Neurology Start: 06-18-2024 End: 06-18-2024 ambulatory DONALD ALBERTS Facility:[facility] Start: 06-18-2024 End: 06-18-2024 Office outpatient visit 15 minutes Donald Alberts DO Work Phone: Neurology Comment on above: Parkinson's disease without dyskinesia or fluctuating manifestations (HCC) (Primary Dx); Hypokinetic Parkinsonian dysphonia (HCC) Start: 06-08-2024 End: 06-08-2024 Clinisync Result Encounter Nathan Bolton MD Work Phone: [facility] External Department Unsolicited Start: 06-08-2024 End: 06-08-2024 Clinisync Result Encounter Nathan Bolton MD Work Phone: [facility] External Department Unsolicited Start: 06-08-2024 End: 06-08-2024 Orders Only Nathan Bolton MD Work Phone: [facility] Comment on above: Type 2 diabetes elena itus with hyperglycemia, without long-term current use of insulin (CMS/HCC) (Primary Dx) Start: 06-01-2024 End: 06-01-2024 Bamboo flowsheet Nathan Bolton MD Work Phone: [facility] Start: 06-01-2024 End: 06-01-2024 Bamboo flowsheet Nathan Bolton MD Work Phone: [facility] Start: 06-01-2024 End: 06-01-2024 Office outpatient visit 25 minutes Nathan Bolton MD Work Phone: [facility] Comment on above: Type 2 diabetes elena itus with hyperglycemia, without long-term current use of insulin (CMS/HCC) (Primary Dx); Essential hypertension, benign (CMS/HCC); Degeneration of intervertebral disc of lumbar region with discogenic back pain; Parkinson disease, symptomatic (CMS/HCC); Immunodeficiency due to conditions classified elsewhere (CMS/HCC) Start: 06-01-2024 End: 06-01-2024 ambulatory NATHAN BOLTON Not Available Start: 05-25-2024 End: 05-25-2024 Office outpatient visit 15 minutes Yobany Gonzales MD Work Phone: [facility] Comment on above: Elevated PSA (Primar y Dx); Hematuria, gross Start: 05-25-2024 End: 05-25-2024 ambulatory YOBANY GONZALES [facility] Start: 05-18-2024 End: 05-18-2024 [facility] Start: 03-23-2024 End: 03-23-2024 Patient encounter procedure Ayaz Santo DPM Work Phone: [facility] Comment on above: Dermatophytosis of n ail (Primary Dx); Dystrophic nail; Pain around toenail, right foot; Pain around toenail, left foot Start: 03-23-2024 End: 03-23-2024 ambulatory AYAZ SANTO Not Available Start: 03-05-2024 End: 03-05-2024 ambulatory NATHAN BOLTON Not Available Start: 02-04-2024 End: 02-04-2024 ambulatory SHAIKH TALAT Not Available Start: 12-26-2023 End: 12-26-2023 ambulatory DONALD ALBERTS Facility:[facility] Start: 12-26-2023 End: 12-26-2023 Office outpatient visit [...] 09-10-2023 Office outpatient visit 15 minutes Nathan oBlton MD Work Phone: [facility] Comment on above: Epigastric abdominal pain (Primary Dx) Start: 06-14-2023 End: 06-14-2023 ambulatory DONALD ALBERTS Facility:[facility] Start: 03-16-2023 ambulatory Donald Hassan dannymanishrene DO Work Phone: Neurology Comment on above: Botox for excessive saliva for Herrera Martinez Start: 02-19-2023 Refill Donald Chanda Sonya arturi DO Work Phone: Neurology Comment on above: Refill Request Start: 12-26-2022 End: 12-26-[address] DOCTOR NICOLE Facility:[facility] Start: 12-13-2022 End: 12-13-2022 ambulatory JOANNE TALAVERA . Facility:[facility] Start: 12-05-2022 End: 12-05-2022 ambulatory DONALD ALBERTS Facility:[facility] Start: 12-05-2022 End: 12-05-2022 Patient encounter procedure Donald Alberts DO Work Phone: Neurology Comment on above: PD (Parkinson's dise ase) ([facility]) (Primary Dx); Sialorrhea; Hypophonia Start: 11-26-2022 End: 11-27-[address] NATHAN BOLTON Facility:[facility] Start: 10-21-2022 ambulatory Donald xavier DO Work Phone: Neurology Comment on above: Herrera Rohith Rosario ons patient contraindicated medicines Start: 09-27-2022 End: 09-27-2022 ambulatory SANIYA GARZON Facility:[facility] Start: 09-10-2022 Refill Donald xavier DO Work Phone: [facility] Comment on above: Refill Request Start: 08-30-2022 End: 08-30-2022 ambulatory SANIYA GARZON Facility:[facility] Start: 06-27-2022 End: 06-28-[address] NIKHIL GUAJARDO . Facility:[facility] Start: 06-22-2022 Telephone encounter Donald gomez DO Work Phone: [facility] Comment on above: Results (MRI NL) Start: 06-20-2022 End: 06-20-2022 Subsequent hospital visit by physician Mri [facility] Amanda (1.5t) Work Phone: Radiology Comment on above: PD (Parkinson's dise ase) (HCC) [G20] Start: 06-06-2022 End: 06-06-2022 Patient encounter procedure Donald Alberts DO Work Phone: Neurology Comment on above: PD (Parkinson's dise ase) ([facility]) (Primary Dx); Dysarthria Start: 05-23-2022 Encounter for preprocedural laboratory examination DR NIKHIL GUAJARDO . [facility] Start: 05-22-2022 End: 05-22-[address] NIKHIL [...] (2 - Td or Tdap) [facility] Molecular [facility] Start: 06-24-2026 Diabetes Screening Diabetes Screenin [facility] Start: 09-30-2025 Glaucoma screening Diabetes: R etinopathy Screening [facility] Start: 06-02-2025 End: 06-02-2025 Patient encounter procedure 06/02/2025 1:15 PM EST Office Visit [facility] [address] [facility] [address] [facility] [address] Yobany Gonzales MD [address] [place] [address] [facility] Start: 05-25-2025 End: 04-25-2026 Prostatic specific antigen, diagnostic Prostatic specific antigen, diagnostic Lab Routine Elevated PSA Expected: 05/25/2025 (Approximate), Expires: 04/25/2026 [facility] Work Phone: Comment on above: Expected: 05/25/2025 (Approximate), Expires: 04/25/2026 Start: 01-27-2025 End: 01-27-2025 Patient encounter procedure 01/27/2025 1:15 PM EDT Procedure Visit [facility] [address] [place] [phone] Ayaz Santo DPM [address] [place], [place] [phone] [facility] Start: 12-17-2024 End: 12-17-2024 Patient encounter procedure 12/17/2024 1:30 PM EDT Office Visit Neurology [address] [place] [address] Donald Alberts, DO [address] [place], [place] [id number] Parkinson's disease without dyskinesia or fluctuating manifestations (HCC) [G20.A1] Neurology Comment on above: Parkinson's disease without dyskinesia or fluctuating manifestations (HCC) [G20.A1] Start: 12-03-2024 Urine screening for protein Diabetes: Urine Protein Screening [facility] Start: 11-30-2024 End: 11-30-2024 Patient encounter procedure 11/30/2024 10:30 AM EDT Office Visit [facility] [address] [place] [phone] Nathan Bolton MD [address] [place] [phone] [facility] Start: 10-21-2024 End: 10-21-2024 Patient encounter procedure [facility] Comment on above: Arrived Start: 09-07-2024 End: 09-07-2024 Patient encounter procedure 09/07/2024 11:00 AM EST Office Visit [facility] [address] [place] [address] Nathan Bolton MD [address] [place] [address] Arrived [facility] Comment on above: Arrived Start: 07-29-2024 Advance Directive Discussion Advance Directive Discussion [facility] Start: 07-07-2024 End: 07-07-2024 Patient encounter procedure [facility] Comment on above: Arrived Start: 06-20-2024 DIABETES SCREEN DIABETES SCREEN [facility] Start: 06-20-2024 Diabetes Screening Diabetes Screengeovany g [facility] Start: 06-18-2024 End: 06-18-2024 Patient encounter procedure 06/18/2024 9:30 AM EST Office Visit Neurology [address] [place] [address] Donald Alberts, DO [address] [place] [address] Return in about 6 months (around 06/27/2024). Neurology Comment on above: Return in about 6 mo nths (around 06/27/2024). Start: 06-05-2024 Hemoglobin A1c measurement Maritza betes: Hemoglobin A1C [facility] Start: 06-01-2024 End: 06-01-2025 Hemoglobin A1c/Hemoglobin.total in Blood Hemoglobin A1c Lab Routine Type 2 diabetes mellitus with hyperglycemia, without long-term current use of insulin ([facility]) Expected: 06/01/2024 (Approximate), Expires: 06/01/2025 [facility] Work Phone: Comment on above: Expected: 06/01/2024 (Approximate), Expires: 06/01/2025 Start: 06-01-2024 End: 06-01-2024 Patient encounter procedure [facility] Comment on above: Arrived Start: 05-20-2024 Adult BMI Screening Adult BMI Screen ing [facility] Start: 05-20-2024 Tobacco Screening Tobacco Screening [facility] Start: 03-29-2024 Covid-19 Vaccine ( season) Covid-19 Vaccine () [facility] Start: 03-29-2024 Influenza vaccination Influenza Vacc ine (#1) [facility] Start: 12-05-2023 End: 12-05-2023 Patient encounter procedure 12/05/2023 2:45 PM EDT Procedure Visit [facility] [address] [facility] [phone] Ayaz Santo [facility] [address] [facility] [place] [address] [facility] Start: 12-02-2023 End: 12-02-2023 Patient encounter procedure 12/02/2023 10:45 AM EDT Office Visit [facility] [address] [place] [phone] Nathan Bolton MD [address] [place] [address] [facility] Start: 09-24-2023 Hemoglobin A1c measurement Maritza betes: Hemoglobin A1C [facility] Start: 09-10-2023 End: 09-10-2024 RF Upper gastrointestinal tract and Small bowel Single view W contrast PO FL upper GI double contrast w KUB Imaging Routine Epigastric abdominal pain Expected: 09/10/2023, Expires: 09/10/2024 [facility] Comment on above: Expected: 09/10/2023 , Expires: 09/10/2024 Start: 09-10-2023 End: 09-10-2024 US Gallbladder US gallbladder Imaging Routine Epigastric abdominal pain Expected: 09/10/2023, Expires: 09/10/2024 [facility] Work Phone: Comment on above: Expected: 09/10/2023 , Expires: 09/10/2024 Start: 09-10-2023 End: 09-10-2023 Patient encounter procedure 09/10/2023 11:45 AM EST Office Visit [facility] [address] [place] [phone] Nathan Bolton MD [address] [place] [phone] Arrived [facility] Comment on above: Arrived Start: 07-29-2023 Advance Directive Discussion Advance Directive Discussion [facility] Start: 07-29-2023 Behavioral Health Screening Behavioral Health Screening [facility] Start: 03-29-2023 Covid-19 Vaccine ( season) Covid-19 Vaccine ( season) [facility] Start: 03-29-2023 Influenza vaccination INFLUENZA (#1) [facility] Start: 08-26-2022 COVID-19 VACCINE (6 - Pfizer series) COVID-19 VACCINE (6 - Pfizer series) [facility] Start: 07-29-2022 ADVANCE DIRECTIVE DISCUSSION ADVANCE DIRECTIVE DISCUSSION [facility] Start: 07-29-2022 DEPRESSION ASSESSMENT DEPRESSION ASS ESSMENT [facility] Start: 07-29-2021 ADVANCE DIRECTIVE DISCUSSION ADVANCE DIRECTIVE DISCUSSION [facility] Start: 07-29-2021 DEPRESSION ASSESSMENT DEPRESSION ASS ESSMENT [facility] Start: 05-28-2017 Urine microalbumin profile DTa P,Tdap,Td Vaccine (1 - Tdap) [facility] Start: 2011 Fall Risk Screening [facility] Start: 2011 PNEUMOCOCCAL: 65+ (1 - PCV) PNEUMOCOCCAL: 65+ (1 - PCV) [facility] Start: 2006 RSV Vaccine (1 - 1-d ose 60+ series) RSV Vaccine (1 - 1-dose 60+ series) [facility] Start: 1996 SHINGRIX VACCINE (1 of 2) FRIAS GRIX VACCINE (1 of 2) [facility] Start: 1991 COLOGUARD (FIT-DNA) COLOGUARD (FIT-D NA) [facility] Start: 1991 Colonoscopy COLONOSCOPY [facility] Start: 1991 COLORECTAL CANCER SCREENING COLORECTAL CANCER SCREENING [facility] Start: [address] COLONOGRAPHY [facility] Start: 1991 FECAL OCCULT BLOOD FECAL OCCULT BLOO D [facility] Start: 1991 SIGMOIDOSCOPY SIGMOIDOSCOPY [facility] Start: 1981 LIPID SCREEN LIPID SCREEN [facility] Start: 1965 Urine microalbumin profile DTAP,TDAP ,TD (1 - Tdap) [facility] Start: 1965 Urine screening for protein Diabetes: Urine Protein Screening [facility] Start: 1964 Anxiety Screening Anxiety Screening [facility] Start: 1964 Depression Screening Depression Scre ening [facility] Start: 1964 HEPATITIS C SCREEN[facility] Start: 1964 Hepatitis C screening Hepatitis C [facility] Start: 1958 Depression Screening Depression Scre ening [facility] Start: 1956 Glaucoma screening Diabetes: R etinopathy Screening [facility] Start: 1946 Medicare Annual Well ness (AWV) Medicare Annual Wellness (AWV) [facility] Start: 1946 Medicare Annual Well ness Visit Medicare Annual Wellness Visit [facility] End: 07-06-2023 Mri brain brain stem w/o contrast material MRI BRAIN WO IVCON Radiology Routine PD (Parkinson's disease) (HCC) Dysarthria 1 Occurrences starting 06/06/2022 until 07/06/2023 [facility] Work Phone: Comment on above: 1 Occurrences starti ng 06/06/2022 until 07/06/2023 [facility] Immunizations Immunization Date Immunization Notes Care Provider Fa tania 05-13-2023 RSV, recombinant, pr otein subunit RSVpreF, adjuvant reconstitu, 120mcg/0.5mL, PF (Arexvy) Ayaz Santo DPM Work Phone: [facility] 04-22-2023 Influenza, Seasonal, Quadrivalent, Adjuvanted Nathan Bolton MD Work Phone: [facility] 04-22-2023 influenza virus vacc ine, unspecified formulation Ayaz Santo DPM Work Phone: [facility] 04-23-2022 Influenza, High-dose Seasonal, Quadrivalent, Preservative Free Nathan Bolton MD Work Phone: [facility] 04-27-2021 Influenza, Seasonal, Quadrivalent, Adjuvanted Nathan Bolton MD Work Phone: [facility] 05-05-2020 Influenza, Seasonal, Quadrivalent, Adjuvanted Nathan Bolton MD Work Phone: [facility] 05-18-2019 Influenza, injectabl e, Madin Palmer Canine Kidney, preservative free, quadrivalent Nathan Bolton MD Work Phone: [facility] 11-20-2018 zoster vaccine recombinant Jade Bolton MD Work Phone: [facility] 05-13-2018 Seasonal trivalent influenza vaccine, adjuvanted, preservative free Nathan Bolton MD Work Phone: [facility] 02-17-2018 zoster vaccine recombinant Jade Bolton MD Work Phone: [facility] 09-06-2017 pneumococcal polysaccharide vaccine, 23 valent Nathan Bolton MD Work Phone: [facility] 05-27-2017 tetanus and diphther ia toxoids, adsorbed, preservative free, for adult use (5 Lf of tetanus toxoid and 2 Lf of diphtheria toxoid) Nathan Bolton MD Work Phone: [facility] 04-29-2017 influenza, high dose seasonal, preservative-free Nathan Bolton MD Work Phone: [facility] 05-30-2016 influenza, high dose seasonal, preservative-free Nathan Bolton MD Work Phone: [facility] 05-30-2016 pneumococcal conjuga te vaccine, 13 valent Nathan Bolton MD Work Phone: [facility] 06-08-2015 influenza, high dose seasonal, preservative-free Nathan Bolton MD Work Phone: [facility] Healthcare Payers Date Payer Category Payer Medicaid [employer] MEDICARE A DVANTAGE [id number] 2020 Medicare [id number] 2020 Medicare (Managed Care) [employer] GA DICARE [id number] 2020 Medicare HMO [employer] MEDICARE [id number] 1959 Medicare [id number] 1946 Unknown [id number] 2.16.840.1.224321.3.579.2. 593 1946 Unknown [id number] 2.16.840.1.167890.3.579.2. 593 1946 Unknown [id number] 2.16.840.1.493858.3.579.2. 593 1946 Unknown [id number] 2.16.840.1.984058.3.579.2. 593 1946 Unknown [id number] 2.16.840.1.570373.3.579.2. 593 1946 Unknown [id number] 2.16.840.1.740903.3.579.2. 593 1946 Unknown [id number] 2.16.840.1.924702.3.579.2. 593 1946 Unknown [id number] 2.16.840.1.396505.3.579.2. 593 1946 Unknown [id number] 2.16.840.1.589054.3.579.2. 593 1946 Unknown [id number] 2.16.840.1.044763.3.579.2. 593 1946 Unknown [id number] 2.16.840.1.230325.3.579.2. 593 1946 Unknown [id number] 2.16.840.1.224383.3.579.2. 1286 1946 Unknown [id number] 2.16.840.1.683137.3.579.2. 1286 1946 Unknown [id number] 2.16.840.1.539634.3.579.2. 718 1946 Unknown [id number] 2.16.840.1.154686.3.579.2. 1259 1946 Unknown [id number] 2.16.840.1.078117.3.579.2. 1259 1946 Unknown [id number] 2.16.840.1.478739.3.579.2. 1259 1946 Unknown [id number] 2.16.840.1.270026.3.579.2. 9 1946 Unknown [id number] 2.16.840.1.488776.3.579.2. 9 1946 Unknown [id number] 2.16.840.1.828105.3.579.2. 9 1946 Unknown [id number] 2.16.840.1.529912.3.579.2. 1259 1946 Unknown [id number] 2.16.840.1.600969.3.579.2. 9 1946 Unknown [id number] 2.16.840.1.089343.3.579.2. 9 1946 Unknown [id number] 2.16.840.1.276917.3.579.2. 1259 1946 Unknown [id number] 2.16.840.1.312259.3.579.2. 1259 Social History Date Type Detail Facility Start: 03-27-2019 End: 02-04-2024 Tobacco smoking status NHIS Never smoked tobacco [facility] Start: 03-27-2019 End: 02-04-2024 Tobacco use and exposure Smokeless tobacco non-user [facility] Start: 10-14-2020 End: 10-21-2024 Alcohol intake Lifetime non-drinker (finding) [facility] Start: 03-27-2019 History SDOH Alcohol Frequency 1 [facility] Start: 1945 Sex Assigned At Male [facility] Start: 05-27-2022 End: 06-06-2022 Exposure to SARS-CoV-2 (event) Not sure [facility] Start: 12-05-2022 End: 11-28-2023 History of Social function [facility] Start: 12-05-2022 End: 11-28-2023 Tobacco use panel [facility] Adult Depression Screening Assessment 0 [facility] Start: 03-30-2019 Gender identity Identifies as male gender (finding) [facility] How often to you hav e a drink containing alcohol? Never [facility] Within the last year , have [...] [facility] Start: 03-03-2015 Sex Male (finding) [facility] Start: 07-08-2021 Sexual orientation Heterosexual (fin zully) [facility] NEGATED: Highlighted rowStart: NINF History of tobacco use Passive smoker [facility] Medical Equipment Procedure Code Equipment Code Equipment Origin al Text Equipment Identifier Dates once daily. [id number], [id number] Start: 12-15-2018 Comment on above: once daily. Clinical Notes 05-15-2022 to 10-21-2024 Ayaz Santo DPM - 10/21/2024 10:30 AM EDTPatient InstructionsTelephone Encounter - Felice Russo - 09/14/2024 12:[address] Bolton MD - 09/07/2024 12:18 PM ESTPatient Instructions Note Date & Type Note Facility 10-21-2024 History of Present illness Narrative Images from the original note were not included. Subjective Patient ID: Herrera Martinez is a 79 y.o. male who presents for DM Foot Care (Established pt presents today with his for DM nail care. Pt's states that his feet have been getting red and swollen lately, started within the last few months, and they are concerned about this. PCP: Dr. Bolton LV 10/02/24, A1C: 9.6 (05/2024), BS: 137). HPI Chief complaint: requests care of thickened, [...] measures have provided favorable transient symptom relief. Also note some degree of improvement with topical care measures. Risk factors: Type II diabetes. Parkinson's disorder. [...] Rfl: omeprazole (PriLOSEC) [address] capsule, TAKE 1 CAPSULE IN THE MORNING BEFORE A MEAL. DO NOT CRUSH OR CHEW, Disp: 90 capsule, Rfl: 3 oxyCODONE-acetaminophen (Percocet) 5-325 MG tablet, every 4 (four) hours if needed for severe pain, Disp: , Rfl: rasagiline (Azilect) 0.5 MG tablet, Take 1 mg by mouth in the morning., Disp: , Rfl: simvastatin (Zocor) 40 MG tablet, Take 1 tablet (40 mg) by mouth at bedtime, Disp: 90 tablet, Rfl: 3 SITagliptin (Januvia) 100 MG tablet, Take 1 tablet (100 mg) by mouth Daily, Disp: 30 tablet, Rfl: 5 Allergies Patient has no known allergies. Past Surgical History Past Surgical History: Procedure Laterality Date APPENDECTOMY CYST REMOVAL Left 1979 from hand VASECTOMY 1979 Family History Family History Problem Relation Name Age of Onset Cancer Mother Aida rohith Vision loss Father Elvin Rohith Sr Objective [...] sensation threshold. Parkinson's disorder. Fractured sternum (01/30/2024). Fractured 9th rib (August 2024). Plan: conservative and palliative care measures are [...] Ayaz Santo DPM documented in this encounter [facility] 10-21-2024 Instructions Ayaz Santo DPM - 10/21/2024 10:30 AM EDT As noted documented in this encounter [facility] 09-14-2024 Telephone encounter Note Last appt 06/18/24 MT Requested Prescriptions Pending Prescriptions Disp Refills carbidopa-levodopa (SINEMET) 25-100 mg per tablet 540 tablet 3 Sig: Take 2 tablets by mouth four times daily. [Every 3-hours] [facility] 09-14-2024 Miscellaneous Notes Last appt 06/18/24 MTG Requested Prescriptions Pending Prescriptions Disp Refills carbidopa-levodopa (SINEMET) 25-100 mg per tablet 540 tablet 3 Sig: Take 2 tablets by mouth four times daily. [Every 3-hours] documented in this encounter [facility] 09-07-2024 History of Present illness Narrative Associated Problem(s): Strain of calf muscle, subsequent encounter History and exam shows calf strain. Treat with prednisone. Alternate ice and heat. Resume PT. If no improvement may need imaging. Images from the original note were not included. Subjective Patient ID: Herrera Martinez is a 79 y.o. male who presents [...] 50 MG tablet documented in this encounter [facility] 07-14-2024 Telephone encounter Note Summary: ST POC 07/14/2024 S.T. POC received from [employer]. Dr. Alberts reviewed and signed. POC securely faxed with confirmation of receipt received. Sent for scanning. Kathleen Flanagan LPN July 14, 2024 1:25 PM [facility] 07-14-2024 Miscellaneous Notes Summary: ST POC 07/14/2024 S.T. POC received from [employer]. Dr. Alberts reviewed and signed. POC securely faxed with confirmation of receipt received. Sent for scanning. Kathleen Flanagan LPN July 14, 2024 1:25 PM documented in this encounter [facility] 07-07-2024 History of Present illness Narrative Images from the original note were not included. Subjective Patient ID: Herrera Martinez is a 78 y.o. male who presents for Nail care (Herrera Martinez is a 78 y.o. male who [...] Name Age of Onset Cancer Mother Aida rohith Vision loss Father Elvin Rohith Sr Objective [...] Ayaz Santo DPM documented in this encounter [facility] 07-07-2024 Instructions Ayaz Santo DPM - 07/07/2024 9:30 AM EST As noted documented in this encounter [facility] 06-19-2024 Telephone encounter Note Summary: in-step order 06/19/2024 Order sent via secured fax to [employer] at with confirmation of receipt received. Order also sent for scanning. Kathleen Flanagan LPN June 19, 2024 9:45 AM [facility] 06-19-2024 Miscellaneous Notes Summary: in-step order 06/19/2024 Order sent via secured fax to [employer] at with confirmation of receipt received. Order also sent for scanning. Kathleen Flanagan LPN June 19, 2024 9:45 AM documented in this encounter [facility] 06-18-2024 Note HNO ID: [id number] Author: DONALD ALBERTS, DO Service: ? Author Type: Physician Type: Progress Notes Filed: 06/18/2024 10:18 Note Text: [facility] - FOLLOW UP EVALUATION Nathan Bolton MD [address] [facility] [address] Dear Nathan Bolton MD: I had the pleasure of seeing Mr. Martinez for follow-up today. As you know he [...] Arm, BP Po (more content not included)... [facility] [facility] 06-18-2024 History of Present illness Narrative [facility] - FOLLOW UP EVALUATION Nathan Bolton MD [address] [facility] [address] Dear Nathan Bolton MD: I had the pleasure of seeing Mr. Martinez for follow-up today. As you know he [...] Left pathological reflexes: Kirstin's absent. Coordination Right: Ulkwox-cc-nreh normal. Rapid alternating movement normal.Left: Cdllld-dx-rkwv normal. Rapid alternating movement normal. Gait Casual [...] Total -1.63 Assessment and Plan: Assessment Mr. Martinez is a 78 year old year old [...] for speech therapy to focus on Tremaine [employer] ([employer] [facility]OU[employer]) Interested in clinical research? Not discussed Updated Movement Disorders Medication Schedule: Medications 8A 11A 2P 5P Sinemet 25/100 2 2 2 2 Azilect 1mg 1 0 0 0 Return at or around: 12/16/24 Level of service : 40392 (20-29 min). Time spent 20 min on the day of service, which included preparing to see the patient, wvet-ly-sele patient care, completing clinical documentation, obtaining and/or [...] Donald Alberts DO documented in this encounter [facility] 06-01-2024 History of Present illness Narrative [...] were not included. Subjective Patient ID: Herrera Martinez is a [...] follow with neurology. documented in this encounter [facility] 05-25-2024 History of Present illness Narrative Images from the original note were not included. [address] [place] [address] [facility] [address] Patient: Herrera Martinez Date of : 1945 Encounter Date: 05/25/2024 [...] DDD (degenerative disc disease), lumbar Diabetes mellitus ([facility]) Diabetes mellitus type 2, controlled ([facility]) Dyslipidemia Elevated PSA Elevated PSA Hematuria Hyperlipidemia Hypertension Kidney stone Osteoarthritis Parkinson disease ([facility]) Skin cancer basal and melanoma Visual impairment Past Surgical History: Procedure Laterality Date APPENDECTOMY CARDIAC SURGERY 1988 cardiac cath-no stents CATARACT EXTRACTION BILATERAL W/ ANTERIOR VITRECTOMY Bilateral 08/2022, 09/2022 CYST REMOVAL hand CYSTOSCOPY BIOPSY BLADDER N/A 01/23/2021 Performed by Yobany Gonzales MD at [facility] CYSTOSCOPY INSERTION STENT URETER Bilateral 01/23/2021 Performed by Yobany Gonzales MD at [facility] CYSTOSCOPY RETROGRADE PYELOGRAM Bilateral 01/23/2021 Performed by Yobany Gonzales MD at [facility] CYSTOURETEROSCOPY DIAGNOSTIC Bilateral 01/23/2021 Performed by Yobany Gonzales MD at [facility] NEEDLE BIOPSY FUSION PROSTATE N/A 07/04/2021 Performed by Yobany Gonzales MD at [facility] SURGERY SKIN CANCER EXCISION MELANOMA ON HIS [...] in the morning. Indications: high blood pressure. xwxrsqoc-hyjg-XT-calcium &mins (THERAGRAN-M) 9 mg iron-400 mcg tablet [...] No interval gross hematuria. 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 [...] for your understanding. [facility] History of Present illness Narrative Images from the original note were not included. Subjective Patient ID: Herrera Martinez is a 78 y.o. male who presents for Nail care (Herrera Martinez is a 78 y.o. male who [...] Name Age of Onset Cancer Mother Aida rohith Vision loss Father Elvin Rohith Sr Objective [...] Ayaz Santo DPM documented in this encounter [facility] 03-23-2024 Instructions Ayaz Santo DPM - 03/23/2024 10:15 AM EDT As noted documented in this encounter [facility] 12-26-2023 Instructions Donald Alberts DO - 12/26/2023 [...] Compazine or Phenergan. documented in this encounter [facility] 12-26-2023 Note HNO ID: [id number] Author: DONALD ALBERTS DO Service: ? Author Type: Physician Type: Progress Notes Filed: 12/26/2023 13:43 Note Text: [facility] - FOLLOW UP EVALUATION Donald Alberts [address] [place] [address] Nathan Bolton MD [address] [facility] [address] Herrera Martinez is a 78 year old male with a history of PD. He is seen with his . Interval History Since Last Visit: The patient is having more issues with falling. 4(four) falls. Going to PT and DtD. Better with U-STEP Walking Stabilizer Walker. Wearing-off causes lots of trouble with his walking. More festinating. More ksvvvuqu-cm-grvu (FOG). The patient denies any recent illness [...] no murmur Extremitie (more content not included)... [facility] 12-26-2023 History of Present illness Narrative [facility] - FOLLOW UP EVALUATION Donald Alberts [address] [facility] [address] Nathan Bolton MD [address] [facility] [address] Herrera Martinez is a 78 year old male with a history of PD. He is seen with his . Interval History Since Last Visit: The patient is having more issues with falling. 4(four) falls. Going to PT and DtD. Better with U-STEP Walking Stabilizer Walker. Wearing-off causes lots of trouble with his walking. More festinating. More tgxzlnjv-vq-hafs (FOG). The patient denies any recent illness [...] Left pathological reflexes: Kirstin's absent. Coordination Right: Kfeujv-mo-tzxn normal. Rapid alternating movement normal.Left: Orolnp-kz-npgt normal. Rapid alternating movement normal. Gait Casual [...] counseling regarding preparing to see the patient, aaba-ln-oema patient care, completing clinical documentation, obtaining and/or reviewing separately obtained history, performing a medically appropriate examination, counseling and educating the patient/family/caregiver, ordering medications, tests, or procedures, and communicating results to the patient/family/caregiver. I tried to answer all of the patient's questions and concerns during this visit. Donald Alberts DO Senior Staff Neurologist - [facility] documented in this encounter [facility] 09-10-2023 History of Present illness Narrative [...] contrast w KUB documented in this encounter [facility] 06-14-2023 Note HNO ID: [id number] Author: Donald Alberts, DO Service: ? Author Type: Physician Type: Progress Notes Filed: 06/14/2023 3:34 PM Note Text: [facility] - FOLLOW UP EVALUATION Nathan Bolton MD [address] [facility] [address] Herrera Martinez is a 77 year old male with a history of PD. He is seen with his . Interval History Since Last Visit: The patient had a swallowing test in late november 2022 - no issues other than more focus on swallowing was made to the patient. He is going to [facility] still. 1 fall in November o/w doing [...] Cardiac: Regular r (more content not included)... [facility] 02-20-2023 Miscellaneous Notes Last appt 12/05/22 MTG Requested Prescriptions Pending Prescriptions Disp Refills carbidopa-levodopa (SINEMET) 25-100 mg per tablet 540 tablet 3 Sig: Take 1.5 tablets by mouth four times daily. documented in this encounter [facility] 12-13-2022 Note PROCEDURE: XR HIP RT [...] authenticated by: AYAZ NICOLE Date: 2022-12-13 09:47 [facility] 12-13-2022 Note PROCEDURE: XR FOREAR M RT [...] authenticated by: AYAZ NICOLE Date: 2022-12-13 09:43 [facility] 12-13-2022 Note PROCEDURE: XR FOREAR M RT [...] authenticated by: AYAZ NICOLE Date: 2022-12-13 09:43 [facility] 12-05-2022 Note HNO ID: [id number] Author: Donald Alberts, DO Service: ? Author Type: Physician Type: Progress Notes Filed: 12/05/2022 2:18 PM Note Text: [facility] - FOLLOW UP EVALUATION Donald Albetrs [address] [facility] [address] Nathan Bolton MD [address] [facility] [address] Herrera Martinez is a 77 year old male with a history of parkinsonism. He is seen with family. Interval History Since Last Visit: He is falling. There is more csibpgfd-ri-ozlq (FOG) - this is the cause of the falls. He has fallen while he is carrying things. Multitasking is a big issue. There were two falls in the post op period following cataract surgery. FOG seems to be worse in the PM. There is drooling at night. The mucous in the back of the throat is the issue. 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 The Sinemet is not [...] Right pathological reflex (more content not included)... [facility] 12-05-2022 Instructions Donald Alberts DO - 12/05/2022 2:12 PM EDT Medications 8A 1130A 3P 6P Sinemet 25/100 1.5 1.5 1.5 1.5 Azilect 1mg 1 0 0 0 documented in this encounter [facility] 12-05-2022 History of Present illness Narrative [facility] - FOLLOW UP EVALUATION Donald Alberts [address] [facility] [address] Nathan Bolton MD [address] [facility] [address] Herrera Martinez is a 77 year old male with a history of parkinsonism. He is seen with family. Interval History Since Last Visit: He is falling. There is more wroghgcm-pv-vsos (FOG) - this is the cause of the falls. He has fallen while he is carrying things. Multitasking is a big issue. There were two falls in the post op period following cataract surgery. FOG seems to be worse in the PM. There is drooling at night. The mucous in the back of the throat is the issue. 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 The Sinemet is not [...] Left pathological reflexes: Kirstin's absent. Coordination Right: Ymwxsp-yg-thzq normal. Rapid alternating movement normal.Left: Rcmhvv-be-oxnv normal. Rapid alternating movement normal. Gait Casual [...] PA for botulinum toxin (Myobloc) injections 3. [facility] locally for swallow evaluation Return in about 6 months (around 06/07/2023). Medical decision making was high complexity due to patient's, multiple symptoms, advancing disease The total time spent on the patient care was 30 minutes with greater than 50% of the time spent on counseling regarding preparing to see the patient, zzvp-ot-qekh patient care, completing clinical documentation, obtaining and/or reviewing separately obtained history, performing a medically appropriate examination, counseling and educating the patient/family/caregiver, ordering medications, tests, or procedures, communicating with other HCPs (not separately reported), communicating results to the patient/family/caregiver, and care coordination (not separately reported) Donald Alberts DO Senior Staff Neurologist - [facility] Diagnosis: Sialorrhea (K11.7) Current Examination: There [...] EMG guidance: Yes documented in this encounter [facility] 09-27-2022 Note OPERATIVE NOTE OPERATION DATE: [...] ensuring mobility, phacoemulsification was performed in a jymuroy-hlq-blbsoc-type fashion. After all nuclear material had been [...] day for postoperative care. [facility] 09-27-2022 Note PREOPERATIVE HISTORY AND PHYSICAL Date:09/26/2021 [...] with his elective procedure. [facility] 09-10-2022 Miscellaneous Notes Requested Prescriptions Pending Prescriptions Disp Refills rasagiline (AZILECT) 1 mg tab 90 tablet 1 Sig: Take 1 tablet by mouth once daily. documented in this encounter [facility] 08-30-2022 Note OPERATIVE NOTE OPERATION DATE: [...] ensuring mobility, phacoemulsification was performed in a vzjsxjd-srh-vpggmt-type fashion. After all nuclear material had been [...] day for postoperative care. [facility] 08-30-2022 Note HISTORY AND PHYSICAL EXAMINATION Date:08/29/2022 [...] with his elective procedure. [facility] 06-27-2022 Note CONSULTATION CONSULTATION DATE: 06/27/2022 HISTORY [...] on a p.r.n. basis. [facility] 06-22-2022 Miscellaneous Notes I spoke with Mr. Martinez to inform her MRI for Herrera is normal per Dr. Patino. ----- Message from Juan Patino MD sent at 06/20/2022 2:51 PM EST ----- Regarding: MRI results Suzanne, I am covering for Dr. Alberts today. Please let this patient know that his MRI results came back normal. Thanks, Dr. Patino documented in this encounter [facility] 06-20-2022 History of Present illness Narrative [...] 2022 1:15 PM documented in this encounter [facility] 06-06-2022 History of Present illness Narrative [facility] - FOLLOW UP EVALUATION Nathan Bolton MD [address] [place] [address] Herrera Martinez is a 76 year old male with a history of PD. He is seen with his . Interval History Since Last Visit: The patient notes that he is more clumsy - the speech has worsened over the last couple of weeks. the walking has had more aznsswit-ta-ubel (FOG). No falls are noted. The notes [...] Left pathological reflexes: Kirstin's absent. Coordination Right: Wyjvpu-ac-dfeh normal. Rapid alternating movement normal. Left: Npopsl-tb-pvem normal. Rapid alternating movement normal. Gait Casual [...] during this visit: Pd (parkinson's disease) (formerly [facility]) (primary encounter diagnosis) Dysarthria Plan: Continue current antiparkinsonian regimen as dosed. MRI brain for dysarthria Medical decision making was high complexity due to patient's, multiple symptoms, advancing disease The total time spent on the patient care was 25 minutes with greater than 50% of the time spent on counseling regarding preparing to see the patient, ayxi-lx-wvze patient care, completing clinical documentation, obtaining and/or reviewing separately obtained history, performing a medically appropriate examination, counseling and educating the patient/family/caregiver, ordering medications, tests, or procedures, and communicating results to the patient/family/caregiver. I tried to answer all of the patient's questions and concerns during this visit. Donald Alberts DO Senior Staff Neurologist - [facility] documented in this encounter [facility] 05-15-2022 Note CONSULTATION CONSULTATION DATE: 05/15/2022 CHIEF COMPLAINT: Low back pain, posterior thigh pain. HISTORY OF PRESENT ILLNESS: This is a very pleasant, 76-year-old gentleman who is accompanied by his . The patient suffers from Parkinson's. The patient is being treated at [facility] with regards to this. The patient [...] patient currently takes Mobic 7.5 daily, Tylenol xkfj-ron-vijvjye. The patient also is on Sinemet, metformin, [...] CC: Nathan Bolton M.D. [facility] Evaluation note Diagnosis PD (Parkinson's disease) (HCC)- Primary Paralysis agitans Dysarthria [facility] Diagnosis PD (Parkinson's disease) (HCC)- Primary Paralysis agitans Sialorrhea Disturbance of salivary secretion Hypophonia Other voice and resonance disorders [facility] Diagnosis PD (Parkinson's disease) (HCC) Paralysis agitans [facility] Diagnosis Sialorrhea- Primary Disturbance of salivary secretion [facility] Diagnosis Epigastric abdominal pain- Primary Abdominal pain, epigastric documented in this encounter [facility]* Diagnosis Parkinson's disease without dyskinesia or fluctuating manifestations (HCC)- Primary Sialorrhea Disturbance of salivary secretion [facility] Diagnosis PD (Parkinson's disease) (HCC) Paralysis agitans Dysarthria [facility] Diagnosis Epigastric abdominal pain- Primary Abdominal [...] classified elsewhere (CMS/HCC) documented in this encounter [facility]* Diagnosis Epigastric abdominal pain- [...] insulin (CMS/HCC)- Primary [facility] Diagnosis Parkinson's disease without dyskinesia or fluctuating manifestations (HCC)- Primary Hypokinetic Parkinsonian dysphonia (HCC) Dysphonia [facility] Diagnosis Epigastric abdominal pain- Primary [...] hyperglycemia, without long-term current use of insulin ([facility]/HCC)- Primary Essential hypertension, benign (CMS/HCC) Essential hypertension, benign Degeneration of intervertebral disc of lumbar region with discogenic back pain Parkinson disease, symptomatic (CMS/HCC) Paralysis agitans Immunodeficiency due to conditions classified elsewhere ([facility]) Dermatophytosis of nail- Primary Dystrophic nail Other specified disease of nail Pain around toenail, right foot Pain around toenail, left foot [facility] Diagnosis Dermatophytosis of nail- Primary Dystrophic nail Other specified disease of nail Pain around toenail, right foot Pain around toenail, left foot [facility]* Diagnosis Epigastric abdominal pain- Primary Abdominal pain, epigastric Type 2 diabetes mellitus with hyperglycemia, without long-term current use of insulin ([facility])- Primary Essential hypertension, benign (CMS/HCC) Essential hypertension, benign DDD (degenerative disc disease), lumbar Degeneration of lumbar or lumbosacral intervertebral disc Parkinson disease, symptomatic ([facility]) Paralysis agitans Encounter for long-term (current) use of medications Encounter for long-term (current) use of other medications Dyslipidemia ([facility]) Other and unspecified hyperlipidemia Type 2 diabetes mellitus with other specified complication, without long-term current use of insulin ([facility]) Essential hypertension, benign ([facility]/HCC)- Primary Essential hypertension, benign Fall, subsequent encounter Closed fracture of body of sternum with delayed healing Closed fracture of body of sternum with routine healing- Primary Parkinson disease, symptomatic (CMS/HCC) Paralysis agitans Unsteady gait Abnormality of gait Essential hypertension, benign (CMS/HCC) Essential hypertension, benign Type 2 diabetes mellitus with hyperglycemia, without long-term current use of insulin ([facility])- Primary Essential hypertension, benign (CMS/HCC) Essential hypertension, benign Degeneration of intervertebral disc of lumbar region with discogenic back pain Parkinson disease, symptomatic (CMS/HCC) Paralysis agitans Immunodeficiency due to conditions classified elsewhere ([facility]) Strain of calf muscle, subsequent encounter- Primary [facility]* Diagnosis Hematuria, unspecified type- Primary [...] gross Gross hematuria [facility] Diagnosis PD (Parkinson's disease) (HCC) Paralysis agitans [facility] Diagnosis Epigastric abdominal pain- Primary Abdominal [...] Immunodeficiency due to conditions classified elsewhere (CMS/HCC) Traumatic closed nondisplaced fracture of one rib with routine healing, left- Primary Kidney stone Calculus of kidney Type 2 diabetes mellitus with hyperglycemia, without long-term current use of insulin (CMS/HCC) Fall, subsequent encounter Parkinson disease, symptomatic (CMS/HCC) Paralysis agitans 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CMS/HCC) Type II or unspecified type diabetes mellitus with ophthalmic manifestations, not stated as uncontrolled Dermatophytosis of nail- Primary Dystrophic nail Other specified disease of nail Pain around toenail, right foot Pain around toenail, left foot [facility] Purpose Family History No Family History Records FoundNo Family History Records FoundNo Family History Records FoundNo Family History Records FoundNo Family History Records FoundNo Family History Records FoundNo Family History Records FoundNo Family History Records FoundNo Family History Records Found Advance Directives No Advanced Directives Records FoundDocuments on File Type Date Recorded 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 60-74 MINUTES Donald Ablerts, DO [address] [place] [address] Referral ID Status Reason Start Date Expiration Date V isits Requested Visits Authorized [id number] Pending Review 12/04/2022 03/04/2023 1 1 Specialty Diagnoses / Procedures Referred By El chaves Referred To Contact MR IMAGING Diagnoses PD (Parkinson's disease) (HCC) Dysarthria Procedures MRI BRAIN WO IVCON MRI BRAIN BRAIN STEM W/O CONTRAST MATERIAL Donald Alberts, DO [address] [place] [address] Mr Imaging Referral ID Status Reason Start Date Expiration Date Visits Requested Visits Authorized [id number] Authorized Auto-Generat ed Referral 06/06/2022 07/06/2023 1 1 Specialty Diagnoses / Procedures Referred By El chaves Referred To Contact Diagnoses PD (Parkinson's disease) (HCC) Procedures PROVIDER ORDERED FOLLOW UP OFFICE/OUTPATIENT [facility] 60-74 MINUTES Donald Alberts, DO [address] [place] [address] Referral ID Status Reason Start Date Expiration Date V isits Requested Visits Authorized [id number] Pending Review 06/07/2023 09/05/2023 1 1 Specialty Diagnoses / Procedures Referred By El chaves Referred To Contact [facility] Diagnoses PD (Parkinson's disease) (HCC) Sialorrhea Hypophonia Procedures CONSULT TO SPEECH THERAPY OFFICE/OUTPATIENT [facility] 60-74 MINUTES Donald Alberts, DO [address] [id number] [facility] [place] [address] Referral ID Status Reason Start Date Expiration Date Visits Requested Visits Authorized [id number] Pending Review Auto-Generat ed Referral 12/05/2022 12/05/2023 1 1 Specialty Diagnoses / Procedures Referred By El chaves Referred To Contact MR IMAGING Diagnoses PD (Parkinson's disease) (HCC) Dysarthria Procedures MRI BRAIN WO IVCON MRI BRAIN BRAIN STEM W/O CONTRAST MATERIAL Donald Alberts DO [address] [place] [address] Mr Imaging [place] [address] Referral ID Status Reason Start Date Expiration Date V isits Requested Visits Authorized [id number] Closed Auto-Generate d Referral 06/06/2022 07/06/2023 1 1 Specialty Diagnoses / Procedures Referred By El chaves Referred To Contact Diagnoses Parkinson's disease without dyskinesia or fluctuating manifestations (HCC) Procedures PROVIDER ORDERED FOLLOW UP OFFICE/OUTPATIENT [facility] 60 MINUTES Donald Alberts, DO [address] [place] [address] Referral ID Status Reason Start Date Expiration Date V isits Requested Visits Authorized [id number] Authorized 12/16/2024 03/16/2025 1 1 Specialty Diagnoses / Procedures Referred By El chaves Referred To Contact [facility] Diagnoses 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) Procedures CONSULT TO SPEECH THERAPY OFFICE/OUTPATIENT [facility] 60 MINUTES Donald Alberts, DO [address] [place] [address] [facility] [place] [address] [place] [address] Referral ID Status Reason Start Date Expiration Date Visits Requested Visits Authorized [id number] Pending Review Auto-Generat ed Referral 4 06/18/2025 1 1 Additional Source Comments (unrecognized sect ion and content) No Status Records FoundNo Status Records FoundNo Status Records FoundNo Status Records FoundNo Status Records FoundNo Status Records FoundNo Status Records FoundNo Status Records FoundNo Status Records Found INFORMATION SOURCE (unrecogn ized section and content) DATE CREATED AUTHOR 03/26/2020 [facility] DATE CREATED AUTHOR AUTHOR'S ORGANIZ ATION 11/22/2020 [facility] ical Center DATE CREATED AUTHOR AUTHOR'S ORGANIZ ATION 01/04/2023 [facility] DATE CREATED AUTHOR AUTHOR'S ORGANIZ ATION 06/17/2023 [facility] DATE CREATED AUTHOR AUTHOR'S ORGANIZ ATION 05/20/2024 [facility] DATE CREATED AUTHOR AUTHOR'S ORGANIZ ATION 05/26/2024 [facility] DATE CREATED AUTHOR AUTHOR'S ORGANIZ ATION 07/17/2024 [facility] DATE CREATED AUTHOR AUTHOR'S ORGANIZ ATION 07/18/2024 [facility] DATE CREATED AUTHOR AUTHOR'S ORGANIZ ATION 10/22/2024 [facility] EPIC Source Comments (unrecognize d section and content) In the event this informatio n is protected by the Federal Confidentiality of Alcohol and Drug Abuse Patient Records regulations: The Federal rules restrict any use of the information to criminally investigate or prosecute any alcohol or drug abuse patient.[facility] the event this information is protected by the Federal Confidentiality of Alcohol and Drug Abuse Patient Records regulations: The Federal rules restrict any use of the information to criminally investigate or prosecute any alcohol or drug abuse patient.[facility] the event this information is protected by the Federal Confidentiality of Alcohol and Drug Abuse Patient Records regulations: The Federal rules restrict any use of the information to criminally investigate or prosecute any alcohol or drug abuse patient.[facility] the event this information is protected by the Federal Confidentiality of Alcohol and Drug Abuse Patient Records regulations: The Federal rules restrict any use of the information to criminally investigate or prosecute any alcohol or drug abuse patient.[facility] the event this information is protected by the Federal Confidentiality of Alcohol and Drug Abuse Patient Records regulations: The Federal rules restrict any use of the information to criminally investigate or prosecute any alcohol or drug abuse patient.[facility] the event this information is protected by the Federal Confidentiality of Alcohol and Drug Abuse Patient Records regulations: The Federal rules restrict any use of the information to criminally investigate or prosecute any alcohol or drug abuse patient.[facility]In the event this information is protected by the Federal Confidentiality of Alcohol and Drug Abuse Patient Records regulations: The Federal rules restrict any use of the information to criminally investigate or prosecute any alcohol or drug abuse patient.[facility] the event this information is protected by the Federal Confidentiality of Alcohol and Drug Abuse Patient Records regulations: The Federal rules restrict any use of the information to criminally investigate or prosecute any alcohol or drug abuse patient.[facility] the event this information is protected by the Federal Confidentiality of Alcohol and Drug Abuse Patient Records regulations: The Federal rules restrict any use of the information to criminally investigate or prosecute any alcohol or drug abuse patient.[facility] the event this information is protected by the Federal Confidentiality of Alcohol and Drug Abuse Patient Records regulations: The Federal rules restrict any use of the information to criminally investigate or prosecute any alcohol or drug abuse patient.[facility] the event this information is protected by the Federal Confidentiality of Alcohol and Drug Abuse Patient Records regulations: The Federal rules restrict any use of the information to criminally investigate or prosecute any alcohol or drug abuse patient.[facility] Hospital[facility] the event this information is protected by the Federal Confidentiality of Alcohol and Drug Abuse Patient Records regulations: The Federal rules restrict any use of the information to criminally investigate or prosecute any alcohol or drug abuse patient.[facility] HospitalIn the event this information is protected by the Federal Confidentiality of Alcohol and Drug Abuse Patient Records regulations: The Federal rules restrict any use of the information to criminally investigate or prosecute any alcohol or drug abuse patient.[facility] HospitalIn the event this information is protected by the Federal Confidentiality of Alcohol and Drug Abuse Patient Records regulations: The Federal rules restrict any use of the information to criminally investigate or prosecute any alcohol or drug abuse patient.[facility] HospitalIn the event this information is protected by the Federal Confidentiality of Alcohol and Drug Abuse Patient Records regulations: The Federal rules restrict any use of the information to criminally investigate or prosecute any alcohol or drug abuse patient.[facility] Hospital[facility] the event this information is protected by the Federal Confidentiality of Alcohol and Drug Abuse Patient Records regulations: The Federal rules restrict any use of the information to criminally investigate or prosecute any alcohol or drug abuse patient.[facility] Reason for Visit (unrecogniz ed section [...] MDM 60-74 MINUTES Donald Alberts DO [address] [place] [address] Referral ID Status Reason Start Date Expiration Date V isits Requested Visits Authorized [id number] Pending Review 12/04/2022 03/04/2023 1 1 Reason Onset Date Comments Refill Request 02/19/2023 Reason Comments Abdominal Pain Pain goes from back to stomach Reason Onset Date Comments Refill Request 11/03/2023 Reason Comments Established Patient Follow Up Parkinson's Disease Specialty Diagnoses / Procedures Referred By El chaves Referred To Contact CARDIOLOGY Diagnoses Parkinson's disease without dyskinesia or fluctuating manifestations ([facility]) Procedures PROVIDER ORDERED FOLLOW UP OFFICE/OUTPATIENT NEW HIGH MDM 60-74 MINUTES Donald Alberts DO [address] [place] [id number] [facility] [address] [place] [address] Referral ID Status Reason Start Date Expiration Date V isits Requested Visits Authorized [id number] Authorized 07/29/2023 07/28/2024 99 99 Specialty Diagnoses / Procedures Referred By El chaves Referred To Contact MR IMAGING Diagnoses PD (Parkinson's disease) ([facility]) Dysarthria Procedures MRI BRAIN WO IVCON MRI BRAIN BRAIN STEM W/O CONTRAST MATERIAL Donald Alberts DO [address] [id number] Mr [facility] [place] [address] Referral ID Status Reason Start Date Expiration Date V isits Requested Visits Authorized [id number] Closed Auto-Generate d Referral 06/06/2022 07/06/2023 1 1 Reason Comments Follow-up 6 m Reason Comments Follow Up Parkinson's Disease Fall January 30 2024 patient froze and fell, fracturing sternum Reason Comments Nail care Herrera Martinez is a 78 y.o. male who presents for DM Foot Care PCP: Dr. Hoang PRICE 06/01/2024, A1C: 9.2, BS: 167.SS 10.5 Reason Comments Nail care Herrera Martinez is a 78 y.o. male who presents for DM Foot Care PCP: Dr. Hoang PRICE 03/05/2024, A1C: 9.2, BS: 187.SS 10.5 Reason Comments Follow-up Reason Onset Date Comments Refill Request 09/12/2024 Reason Comments DM Foot Care Established pt prese nts today with his for DM nail care. Pt's states that his feet have been getting red and swollen lately, started within the last few months, and they are concerned about this. PCP: Dr. Hoang PRICE 10/02/24, A1C: 9.6 (05/2024), BS: 137 Care Teams (unrecognized sec tion and content) Show Host/Hostess Relationship Specialty Start Date End Date Nathan Bolton [address] [place] [address] PCP - General Family Medicine 07/29/20 Show Host/Hostess Relationship Specialty Start Date End Date Nathan Bolton [address] [place] [address] PCP - General Family Medicine 07/29/20 Show Host/Hostess Relationship Specialty Start Date End Date Nathan Bolton [address] [place] [address] PCP - General Family Medicine 07/29/20 Show Host/Hostess Relationship Specialty Start Date End Date Nathan Bolton [address] [place] [address] PCP - General Family Medicine 07/29/20 Show Host/Hostess Relationship Specialty Start Date End Date Nathan Bolton [address] [place] [address] PCP - General Family Medicine 07/29/20 Show Host/Hostess Relationship Specialty Start Date End Date Nathan Bolton [address] [place] [address] PCP - General Family Medicine 07/29/20 Show Host/Hostess Relationship Specialty Start Date End Date Nathan Bolton [address] [place] [address] PCP - General Family Medicine 07/29/20 Show Host/Hostess Relationship Specialty Start Date End Date Nathan Bolton MD [address] [place] [id number] PCP - General Family Medicine 09/10/23 Show Host/Hostess Relationship Specialty Start Date End Date Nathan Bolton MD [address] [place] [address] PCP - General Family Medicine 09/10/23 Show Host/Hostess Relationship Specialty Start Date End Date Nathan Bolton [address] [place] [address] PCP - General Family Medicine 07/29/20 Show Host/Hostess Relationship Specialty Start Date End Date Nathan Bolton [address] [place] [address] PCP - General Family Medicine 07/29/20 Show Host/Hostess Relationship Specialty Start Date End Date Nathan Bolton [address] [place] [address] PCP - General Family Medicine 07/29/20 Show Host/Hostess Relationship Specialty Start Date End Date Nathan Bolton MD [address] [place] [address] PCP - General Family Medicine 09/10/23 Show Host/Hostess Relationship Specialty Start Date End Date Nathan Bolton MD [address] [place] [address] PCP - General Family Medicine 09/10/23 Show Host/Hostess Relationship Specialty Start Date End Date Nathan Bolton MD [address] [place] [address] PCP - General Family Medicine 09/10/23 Show Host/Hostess Relationship Specialty Start Date End Date Nathan Bolton MD [address] [place] [address] PCP - General Family Medicine 07/29/20 Show Host/Hostess Relationship Specialty Start Date End Date Nathan Bolton MD [address] [place] [address] PCP - General Family Medicine 07/29/20 Show Host/Hostess Relationship Specialty Start Date End Date Nathan Bolton MD [address] [place] [address] PCP - General Family Medicine 07/29/20 Show Host/Hostess Relationship Specialty Start Date End Date Nathan Bolton MD [address] [place] [address] PCP - General Family Medicine 09/10/23 Show Host/Hostess Relationship Specialty Start Date End Date Nathan Bolton MD [address] [place] [address] PCP - General Family Medicine 09/10/23 Show Host/Hostess Relationship Specialty Start Date End Date Nathan Bolton MD [address] [place] [address] [facility] 09/10/23 Show Host/Hostess Relationship Specialty Start Date End Date Nathan Bolton MD [address] [place] [address] [facility] 09/10/23 Show Host/Hostess Relationship Specialty Start Date End Date Nathan Bolton MD [facility] 11/09/20 Show Host/Hostess Relationship Specialty Start Date End Date Nathan Bolton MD [address] [place], [place] [id number] [facility] 07/29/20 Show Host/Hostess Relationship Specialty Start Date End Date Nathan Bolton MD [address] [place] [address] [facility] 09/10/23 Show Host/Hostess Relationship Specialty Start Date End Date Nathan Bolton MD [address] [place] [address] [facility] 09/10/23 FOR RECORDS PERTAINING TO PATIENTS WHO [...] BE BASED ON THE PRIMARY CLINICAL RECORDS. [facility] [employer] [facility]. provides no warranty or guarantee of the accuracy or completeness of information in this document.
[2024-11-06 09:40] LABS: Estimated Average Glucose 169 mg/dL; Glycohemoglobin A1C 7.5 % (4.5-6.2)
== END 2024-11-06 09:01 | disposition home or self-care (01) ==
LOC: LAB 09:01
PROVIDERS: PCP Family Medicine; Visit Provider Family Medicine
DX: E11.65 Type 2 diabetes mellitus with hyperglycemia (principal)
CPT/HCPCS: 36415; 83036

== ENCOUNTER 2024-11-17 19:13 | Emergency (ER) | payer MEDICARE, SELFPAY ==
[2024-11-17 19:15] VITALS: BP 140/76; PULSE 91; TEMP 36.8; O2SAT 98; BMI 22.7
--- NOTE | 2024-11-17 19:27 | ED_ITS ---
HPI HPI - Fall General Chief Complaint: Fall Stated Complaint: OTHER Time Seen by Provider: 11/17/24 19:21 Source: patient Mode of arrival: ambulance Limitations: no limitations History of Present Illness HPI Narrative: 79 year old male presents to the ED via EMS s/p trip and fall today. Reports pain to his right hip and left knee. Denies hitting his head and LOC. Denies pain to his head, neck, back, chest, abdomen, BUE. He has an abrasion to his left knee. He is accompanied by family. He has hx Parkinson's, frequent falls. Related Data Home Medications ?Medication ?Instructions ?Recorded ?Confirmed carbidopa 25 mg-levodopa 100 mg 1.5 tab PO .4 times per day 02/07/23 11/17/24 tablet glipizide 5 mg tablet 5 mg PO DAILY 02/07/23 11/17/24 meloxicam 7.5 mg tablet 7.5 mg PO DAILY 02/07/23 11/17/24 rasagiline 1 mg tablet 1 mg PO DAILY 02/07/23 11/17/24 simvastatin 40 mg tablet 40 mg PO .QHS 02/07/23 11/17/24 aspirin 81 mg capsule 81 mg PO DAILY 09/23/24 11/17/24 magnesium 250 mg tablet 250 mg PO DAILY 09/23/24 11/17/24 metformin 500 mg tablet 500 mg PO BID 09/23/24 11/17/24 multivitamin 1 tab PO DAILY 09/23/24 11/17/24 omeprazole 40 mg capsule,delayed 40 mg PO BID 09/23/24 11/17/24 release glipizide 10 mg tablet mg 11/17/24 sitagliptin phosphate 100 mg mg 11/17/24 tablet (Januvia) Allergies Allergy/AdvReac Type Severity Reaction Status Date / Time No Known Drug Allergies Allergy Verified 11/17/24 19:17 Opioid HPI Opioid Management Most Recent Pain and Opioid Data: Last Pain Scale 10 09/23/24 07:59 09/23/24 Review of Systems ROS Constitutional Denies: fever or chills Cardiovascular Denies: chest pain Respiratory Denies: shortness of breath Gastrointestinal Denies: abdominal pain, nausea or vomiting Musculoskeletal Reports: extremity pain and joint pain; Denies: back pain or neck pain Integumentary/Breast Reports: skin pain Neurological Denies: headache or dizziness PFSH PFSH Social History Smoking status: Never smoker Little interest or pleasure in doing things: not at all Feeling down, depressed, or hopeless: not at all Exam Constitutional Vital Signs, click to edit/add: Last Vital Signs Temp 98.3 F 11/17/24 19:15 Pulse 80 11/17/24 21:14 Resp 16 11/17/24 21:14 BP 131/76 11/17/24 21:14 Pulse Ox 98 11/17/24 21:14 O2 Del Method Room Air 11/17/24 19:15 Common normals: no apparent distress and oriented x3 General appearance: cooperative HENMT Common normals: head/scalp atraumatic, external ears normal and moist oral mucous membranes Eye Common normals: PERRL and EOMs intact bilaterally Neck & C-Spine Common normals: supple Cervical spine: no cervical spine tenderness, no paracervical muscle tenderness and no paracervical muscle spasm Chest Common normals: palpation of chest normal Chest: symmetrical chest wall rise Respiratory Common normals: normal respiratory effort Effort & inspection: symmetric chest movement Cardio Common normals: regular rate Peripheral pulses: posterior tibial pulses present and dorsalis pedis pulses present GI Common normals: soft to palpation and non-tender Back & Pelvis Thoracic spine/upper back: normal to inspection; no thoracic spinal tenderness, no paraspinal muscle tenderness and no paraspinal muscle spasm Lumbar spine/lower back: normal to inspection; no lumbar spinal tenderness, no paraspinal muscle tenderness and no paraspinal muscle spasm Extremity Other: Tenderness to right hip. Pain increases with movement. No obvious deformity or swelling. Tenderness to left knee. Abrasion to left knee. No obvious deformity or swelling. Denies tenderness to BUE, left hip, right knee, ankles. Neuro Common normals: oriented x3 and moves all extremities Sensorium/orientation: awake and alert Other: At baseline. Course Vital Signs Vital signs: Vital Signs Temperature 98.3 F 11/17/24 19:15 Pulse Rate 91 H 11/17/24 19:15 Respiratory Rate 16 11/17/24 19:15 Blood Pressure 140/76 11/17/24 19:15 Pulse Oximetry 98 11/17/24 19:15 Oxygen Delivery Method Room Air 11/17/24 19:15 Temperature 98.3 F 11/17/24 19:15 Pulse Rate 80 11/17/24 21:14 Respiratory Rate 16 11/17/24 21:14 Blood Pressure 131/76 11/17/24 21:14 Pulse Oximetry 98 11/17/24 21:14 Oxygen Delivery Method Room Air 11/17/24 19:15 MDM - Fall MDM Narrative Medical decision making narrative: CT cervical spine, x-ray of the right hip/pelvis, and x-ray of the left knee were negative for acute findings. Findings were discussed with the patient. He was ambulatory with a walker in the ED. Follow up with pcp for a recheck, further evaluation and treatment. Differential Diagnosis Differential diagnosis: Likely other (Hip fracture/contusion, neck pain, cervical strain/fracture, knee abrasion/contusion/fracture, fall) Medical Records Attestation: I reviewed the patient's medical records. Imaging Data CT, XR: Attestation: I have reviewed the pertinent imaging results. Radiologist's impression: CT cervical spine: No acute fracture or malalignment XR right hip: No acute bony process XR left knee: No acute bony process Discharge Plan Discharge Chief Complaint: Fall Clinical Impression: Fall, Contusion of hip, right, Cervical strain, Abrasion of knee, left Patient Disposition: Home, Self-Care Time of Disposition Decision: 21:48 Condition: Good Mode of Transportation: Private Vehicle Prescriptions / Home Meds: No Action aspirin 81 mg capsule 81 mg PO DAILY omeprazole 40 mg capsule,delayed release(DR/EC) 40 mg PO BID metformin 500 mg tablet 500 mg PO BID magnesium 250 mg tablet 250 mg PO DAILY multivitamin Tablet 1 tab PO DAILY carbidopa-levodopa 25-100 mg tablet 1.5 tab PO .4 times per day glipizide 5 mg tablet 5 mg PO DAILY meloxicam 7.5 mg tablet 7.5 mg PO DAILY rasagiline 1 mg tablet 1 mg PO DAILY simvastatin 40 mg tablet 40 mg PO .QHS glipizide 10 mg tablet Januvia 100 mg tablet Print Language: Occitan Instructions: Cervical Strain (ED), Knee Pain (ED), Hip Contusion (ED) Additional Instructions: Return to the ER for worsening symptoms. Referrals: Nathan Hartman MD [Primary Care Provider] - 1 week Discharge Date/Time: 11/17/24 21:55
[2024-11-17] MEDS: OXYCODONE HCL/ACETAMINOPHEN 5MG/325MG 1 TAB PO (19:49)
[2024-11-17 21:14] VITALS: BP 131/76; PULSE 80; O2SAT 98
== END 2024-11-17 21:55 | disposition home or self-care (01) ==
PROVIDERS: Emergency Provider Internal Medicine; PCP Family Medicine
DX: S70.01XA Contusion of right hip, initial encounter (principal); S16.1XXA Strain of muscle, fascia and tendon at neck level, initial encounter; S80.212A Abrasion, left knee, initial encounter; G20.A1 Parkinson's disease without dyskinesia, without mention of fluctuations; W01.0XXA Fall on same level from slipping, tripping and stumbling without subsequent striking against object, initial encounter; Z91.81 History of falling
CPT/HCPCS: 72125; 73502; 73562; 99285

== ENCOUNTER 2025-03-15 14:24 | Outpatient (OUT) | payer MEDICARE, SELFPAY ==
--- NOTE | 2025-03-15 15:31 | PM.CN ---
Consult Note: HPI Data of Consult Patient: new to practice Consult date: 03/15/25 Requesting Physician: Elan Jenkins MD Primary Care Provider: Non-Staff Physician, Consult Narrative Reason for consult: neck, upper extremity, low back, lower extremity pain Narrative: 79yof who presents for evaluation. longstanding history of neck, upper extremity, low back, lower extremity pain. previously underwent interventional modalities, with good relief. has engaged in a series of provider directed home exercises >6 weeks, without lasting benefit. uses percocet as needed. cc:: CC: Elan Jenkins MD Review of Systems ROS Status of ROS 10 or more systems reviewed and unremarkable except as noted in history and below PFSH PFS Social History Smoking status: Never smoker Little interest or pleasure in doing things: not at all Feeling down, depressed, or hopeless: not at all Meds Home Medications and Allergies Home Medications ?Medication ?Instructions ?Recorded ?Confirmed ?Type carbidopa 25 mg-levodopa 100 mg 1.5 tab PO .4 times per day 02/07/23 11/17/24 History tablet glipizide 5 mg tablet 5 mg PO DAILY 02/07/23 11/17/24 History meloxicam 7.5 mg tablet 7.5 mg PO DAILY 02/07/23 11/17/24 History rasagiline 1 mg tablet 1 mg PO DAILY 02/07/23 11/17/24 History simvastatin 40 mg tablet 40 mg PO .QHS 02/07/23 11/17/24 History aspirin 81 mg capsule 81 mg PO DAILY 09/23/24 11/17/24 History magnesium 250 mg tablet 250 mg PO DAILY 09/23/24 11/17/24 History metformin 500 mg tablet 500 mg PO BID 09/23/24 11/17/24 History multivitamin 1 tab PO DAILY 09/23/24 11/17/24 History omeprazole 40 mg capsule,delayed 40 mg PO BID 09/23/24 11/17/24 History release glipizide 10 mg tablet mg 11/17/24 History sitagliptin phosphate 100 mg mg 11/17/24 History tablet (Januvia) Allergies Allergy/AdvReac Type Severity Reaction Status Date / Time No Known Drug Allergies Allergy Verified 11/17/24 19:17 Exam Narrative Exam Narrative: Psych-alert and oriented x 3.? Attentive and appropriate, constitutionally normal, displays normal mood and affect per situation.? There are no obvious deficits in memory, reasoning, or intellect.? Skin-no obvious rashes, bruising, or erythema noted to the patient's area of pain.? Extremities-upper extremities are warm with minimal edema and palpable pulses. Cervical- tenderness to palpation noted in the cervical spine and paraspinal musculature.? Pain is elicited with flexion, extension, and lateral rotation of the cervical spine.? Range of motion is diminished due to pain. Facet loading maneuvers are positive. Strength-unremarkable and within normal limits Sensory-no notable sensory deficits in the bilateral upper extremities to touch or pinprick with the exception to decreased sensation to the bilateral C4, 5, 6 dermatomal distribution.? Lumbar-tenderness to palpation noted in the lumbar spine and paraspinal musculature. Pain is not elicited with flexion, extension, and lateral rotation of the lumbar spine. Range of motion is not diminished with these motions. Facet loading maneuvers are positive. Strength-noted to be unremarkable with the exception of decreased strength rated at 4 out of 5 in bilateral quadriceps femoris. Sensory-no notable sensory deficits in the bilateral lower extremities to touch or pinprick in all dermatomal distributions with the exception to decreased sensation to the bilateral L4, 5 dermatomal distribution Coordination remains intact.? Gait remains non-antalgic.? Assessment and Plan Assessment and Plan (1) Lumbar stenosis with neurogenic claudication: (2) Cervical stenosis of spine: Plan 79yom who presents for evaluation. failed conservative measures, as noted. given symptoms and exam findings, prudent to update imaging. will order lumbar mri without contrast and cervical mri without contrast. he is in agreement. meds reviewed, no changes. follow up after imaging.
== END 2025-03-15 14:25 | disposition home or self-care (01) ==
LOC: PM 14:25
PROVIDERS: Visit Provider Anesthesiology
DX: M48.062 Spinal stenosis, lumbar region with neurogenic claudication (principal); M48.02 Spinal stenosis, cervical region
CPT/HCPCS: G0463

== ENCOUNTER 2025-03-31 08:30 | Outpatient (OUT) | payer MEDICARE, SELFPAY ==
--- NOTE | 2025-03-31 08:33 | MR_ITS ---
The [address] [address] Patient Name: TASHA NEWBERRY MRN: [id number] date: 1945 Sex: M Assigned Patient Location: MRI Current Patient Location: MRI Accession/Order Number: [id number] Exam Date: 03/31/2025 08:50 Report Date: 03/31/2025 11:52 At the request of: LILO MANLEY MD Procedure: MR lumbar spine wo con MR lumbar spine wo con 03/31/2025 9:56 AM SIGNS AND SYMPTOMS: Chronic low back pain, history of scoliosis PROTOCOL: Multiplanar multisequence MR images of the lumbar spine without contrast COMPARISON: None. 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 There is 4 mm of retrolisthesis of L2 upon L3 with 6 mm of retrolisthesis of L3 upon L4. There is preservation of vertebral body heights. There is moderate disc height loss at L1-L2. There is moderate to severe disc height loss at L2-L3 and L3-L4. There is moderate disc height loss at L4-L5 and L5-S1. There is Modic type II fatty endplate degenerative change at L2-L3, L3-L4, and L4-L5. The conus terminates at the inferior endplate of the T12 vertebral body level. No epidural or paraspinous fluid collection is appreciated. Simple cysts are noted in the renal cortices requiring no further follow-up. At T12-L1: There is a normal disc, central canal, and neural foramen. At L1-L2: There is a normal disc, central canal, and neural foramen. At L2-L3: There is a circumferential disc bulge with endplate osteophyte formation and facet hypertrophy. There is mild spinal canal stenosis with mild bilateral neural foraminal narrowing. At L3-L4: There is a circumferential disc bulge with endplate osteophyte formation. There is facet hypertrophy and ligamentum flavum thickening. There is moderate spinal canal stenosis with moderate left and mild right neural foraminal stenosis. At L4-L5: There is a broad-based disc bulge with endplate osteophyte formation and facet hypertrophy. There is mild spinal canal stenosis with mild right and moderate left neural foraminal stenosis. At L5-S1: There is a broad-based disc bulge with endplate osteophyte formation and facet hypertrophy. There is moderate left and mild right neural foraminal narrowing with mild spinal canal narrowing. 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 There is 4 mm of retrolisthesis of L2 upon L3 with 6 mm of retrolisthesis of L3 upon L4. At L3-L4: There is a circumferential disc bulge with endplate osteophyte formation. There is facet hypertrophy and ligamentum flavum thickening. There is moderate spinal canal stenosis with moderate left and mild right neural foraminal stenosis. At L4-L5: There is a broad-based disc bulge with endplate osteophyte formation and facet hypertrophy. There is mild spinal canal stenosis with mild right and moderate left neural foraminal stenosis. At L5-S1: There is a broad-based disc bulge with endplate osteophyte formation and facet hypertrophy. There is moderate left and mild right neural foraminal narrowing with mild spinal canal narrowing. Impression dictated by: Lencho Garcia M.D. 03/31/2025 11:52 AM Dictation Location: [place] [address] Electronically authenticated by: [id number] Y Date: 03/31/2025 11:52
--- NOTE | 2025-03-31 08:33 | MR_ITS ---
[address] [address] Patient Name: TASHA NEWBERRY MRN: [id number] date: 1945 Sex: M Assigned Patient Location: MRI Current Patient Location: MRI Accession/Order Number: [id number] Exam Date: 03/31/2025 08:50 Report Date: 03/31/2025 11:56 At the request of: LILO MANLEY MD Procedure: MR cervical spine wo con MR cervical spine wo con 03/31/2025 9:56 AM SIGNS AND SYMPTOMS: Cervical stenosis, chronic neck pain PROTOCOL: Multiplanar multisequence MR images of the cervical spine without contrast COMPARISON: 11/17/2024 FINDINGS: The bones of the cervical spine are in anatomic alignment. There is preservation of vertebral body heights. There is moderate disc height loss at C4-C5 and C5-C6. There is Schmorl's node formation in the endplates at T4 and T5. The marrow signal is within normal limits. The cord is normal in signal. No epidural or paraspinous fluid collection is appreciated. The visualized paraspinous soft tissues are within normal limits. The prevertebral soft tissues are within normal limits. At C2-C3: There is right-sided uncovertebral joint spurring with bilateral facet hypertrophy. There is mild left and moderate right neural foraminal narrowing with mild spinal canal narrowing. At C3-C4: There is a broad-based disc bulge without joint spurring and facet hypertrophy. There is moderate right and mild left neural foraminal narrowing with mild spinal canal narrowing. At C4-C5: There is a broad-based disc bulge with facet hypertrophy and operative joint spurring. There is moderate right and mild left neural foraminal narrowing. There is moderate spinal canal stenosis. At C5-C6: There is a broad-based disc bulge with uncovertebral joint spurring and facet hypertrophy. There is moderate right and mild left neural foraminal narrowing. There is moderate spinal canal narrowing. At C6-C7: There is a broad-based disc bulge with uncovertebral joint spurring and facet hypertrophy. There is moderate left and mild right neural foraminal narrowing with mild spinal canal narrowing. At C7-T1: There is a normal disc, central canal, and neural foramen. MR/MR cervical spine wo con IMPRESSION: No cord compression or cord signal abnormality. Multilevel degenerative changes noted as above contributing to varying degrees of spinal canal and neural foraminal stenosis throughout the cervical spine. See details above. Impression dictated by: Lencho Garcia M.D. 03/31/2025 11:56 AM Dictation Location: [place] [address] Electronically authenticated by: [id number] Y Date: 03/31/2025 11:56
--- OUTSIDE RECORDS SUMMARY | 2025-03-31 08:33 | XMS_ITS | Encounter Summary ---
Author Organization [facility] Address [address] [place] [address] Care Team Providers Care Pump House Technician Name Role Phone Nathan Hartman MD Primary Care Provider [phone] Encounter Details Date Type Department Care Team (Late st Contact Info) Description 11/09/2024 Results Follow-Up [facility] [address] [facility] [place] [address] Sofy Bo MA MLR HEMOGLOBIN A1C Social History Tobacco Use Types Packs/Day Years Used Date Smoking Tobacco: Never Passive Smoke Exposure: Never Smokeless Tobacco: Never Alcohol Use Standard Drinks/Week Comments Never 0 (1 standard drink = 0.6 oz pur e alcohol) Humiliation, Afraid, Rape, and Kick questionnair e Answer Date Recorded Within the last year, have y ou been afraid of your partner or ex-partner? No 09/09/2023 Within the last year, have y ou been humiliated or emotionally abused in other ways by your partner or ex-partner? No Within the last year, have y ou been kicked, hit, slapped, or otherwise physically hurt by your partner or ex-partner? No 09/09/2023 Within the last year, have y ou been raped or forced to have any kind of sexual activity by your partner or ex-partner? No 09/09/2023 Social Connection and Isolat ion Panel [NHANES] Answer Date Recorded In a typical week, how many times do you talk on the phone with family, friends, or neighbors? Three times a week 11/28/2023 How often do you get togethe r with friends or relatives? More than three times a week 11/28/2023 How often do you attend chur ch or sikh services? Never 11/28/2023 Do you belong to any clubs o r organizations such as protestant groups, unions, fraternal or athletic groups, or school groups? No 11/28/2023 How often do you attend meet ings of the clubs or organizations you belong to? Never 11/28/2023 Are you , , di vorced, , never , or living with a partner? 11/28/2023 AUDIT-C Answer Date Recorded Q1: How often do you have a drink containing alcohol? Never 11/28/2023 Q2: How many drinks containi ng alcohol do you have on a typical day when you are drinking? Patient does not drink Q3: How often do you have si x or more drinks on one occasion? Never 11/28/2023 Overall Financial Resource Strain (CARDIA) Answe r Date Recorded How hard is it for you to pa y for the very basics like food, housing, medical care, and heating? Not hard at all 11/28/2023 PHQ-2 Answer Date Recorded Patient Health Questionnaire-2 Score 0 02/04/2024 [facility] - Occupational Stress Questionnaire Answer Date Recorded Do you feel stress - tense, restless, nervous, or anxious, or unable to sleep at night because your mind is troubled all the time - these days? Only a little 11/28/2023 Exercise Vital Sign Answer Date Recorde d On average, how many days pe r week do you engage in moderate to strenuous exercise (like a brisk walk)? 6 days 11/28/2023 On average, how many minutes do you engage in exercise at this level? 40 min 11/28/2023 Hunger Vital Sign Answer Date Recorded Within the past 12 months, y ou worried that your food would run out before you got the money to buy more. Never true 11/28/19 24 Within the past 12 months, t he food you bought just didn't last and you didn't have money to get more. Never true 11/28/2023 PRAPARE - Transportation Answer Date Re corded In the past 12 months, has l ack of transportation kept you from medical appointments or from getting medications? No 08/2023 In the past 12 months, has l ack of transportation kept you from meetings, work, or from getting things needed for daily living? No 11/28/2023 Housing Stability Vital Sign Answer Brandt e Recorded In the last 12 months, was t here a time when you were not able to pay the mortgage or rent on time? No 11/28/2023 In the last 12 months, how many places have you lived? 2 11/28/2023 In the last 12 months, was t here a time when you did not have a steady place to sleep or slept in a fpc (including now)? No 11/28/2023 Sex and Gender Information Value Date Recorded Sex Assigned at Not on file Legal Sex Male 8:32 PM EDT Gender Identity Not on file Sexual Orientation Not on file documented as of this encounter Plan of Treatment Upcoming Encounters Date Type Department Care Team (Late st Contact Info) Description 05/12/2025 1:15 PM EDT Procedure Visit [facility] [address] [place] [id number] Ky Santo DPM [address] [place], [place] [id number] documented as of this encounter Visit Diagnoses Not on filedocumented in this encounter Care Teams Pump House Technician Relationship Specialty Start Date End Date Nathan Hartman MD PCP - General Family Medicine 09/10/23 documented as of this encounter
--- OUTSIDE RECORDS SUMMARY | 2025-03-31 08:33 | XMS_ITS | Clinical Summary ---
Author Organization [facility] Address [address] [place] [address] Care Team Providers Care Microfilm Clerk Name Role Phone Nathan Hartman MD Primary Care Provider [phone] Allergies No known active allergies Medications ONETOUCH ULTRA BLUE TEST STRIP test strip once daily. 1 9 Active ONETOUCH ULTRASOFT LANCETS lancets once daily. 1 9 Active meloxicam (MOBIC) 7.5 mg tablet Take 7.5 mg by mouth once daily. 0 9 Active metFORMIN ER (GLUCOPHAGE XR) 500 mg 24 hr tablet 500 mg once daily. 0 9 Active simvastatin (ZOCOR) 40 mg tablet 40 mg daily at bedtime. 0 9 Active aspirin, enteric coated (ASPIRIN, ENTERIC COATED) 81 mg EC tablet Take 81 mg by mouth once daily. Active Magnesium 250 mg tab Take 250 mg by mouth once daily. Active multivit-minerals/F A/lycopene (ONE-A-DAY MEN'S ORAL) Take by mouth once daily. Active glipiZIDE (GLUCOTROL XL) 5 mg 24 hr tablet Take 5 mg by mouth two times a day. Active omeprazole (PRILOSEC) 40 mg capsule Take 40 mg by mouth two times a day. One in am and one at pm Active carbidopa-levodopa (SINEMET) 25-100 mg per tabletIndications:P D (Parkinson's disease) (HCC) Take 2 tablets by mouth four times daily. [Every 3-hours] 540 tablet 3 5 09/15/19 26 Active atropine 1 % ophthalmic solutionIndications :Sialorrhea Use 1-2 drops daily as need for drooling 15 mL 1 12/17/2024 2:51 PM EDT 5 Active JANUVIA 100 mg tablet Take 1 tablet by mouth once daily. 5 Active rasagiline (AZILECT) 1 mg tabIndications:Park inson's disease without dyskinesia or fluctuating manifestations (HCC) Take 1 tablet by mouth once daily. 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 from Last 3 Months Family History Medical History Relation Comments Seizures Daughter tremor at 99 years-old Father Relation Status Comments Daughter Father Social History Tobacco Use Types Packs/Day Years Used Date Smoking Tobacco: Never Smokeless Tobacco: Never Alcohol Use Standard Drinks/Week Comments Never 0 (1 standard drink = 0.6 oz pur e alcohol) AUDIT-C Answer Date Recorded Q1: How often do you have a drink containing alc ohol? Never 03/27/2019 Average Number of Drinks Not on file 019 Frequency of Binge Drinking Not on file 02/28 PHQ-2 Answer Date Recorded PHQ-2 score 1 12/14/2024 Area Deprivation Index Answer Date Kit rded National Score (1-100), lower number is lower ri sk 89 12/05/2022 State Score (1-10), lower number is lower risk 8 12/05/2022 Data from: https://www.neighborhoodatlas.medicine.[facility].edu/. Last address used for calculation [address] 12/05/2022 Sex and Gender Information Value Date Recorded Sex Assigned at Male 03/30/2019 6:28 PM EDT Legal Sex Male 10:46 AM EDT Gender Identity Male 03/30/2019 6:28 PM EDT Sexual Orientation Not on file Last Filed Vital Signs Vital Sign Reading Time Taken Comments Blood Pressure 101/64 12/17/2024 1:55 PM EDT Pulse 68 12/17/2024 1:55 PM EDT Temperature 36.2 C (97.1 F) 10/14/2020 3:02 PM EDT Respiratory Rate 18 03/27/2019 9:56 AM EDT Oxygen Saturation 99% 12/05/2022 1:27 PM EDT Inhaled Oxygen Concentration - - Weight 76.1 kg (167 lb 12.8 oz) 06/14/2023 2:35 PM EST Height 177.8 cm (5' 10 ) 06/14/2023 2:35 PM EST Body Mass Index 24.08 06/14/2023 2:35 PM EST Plan of Treatment Upcoming Encounters Date Type Department Care Team (Late st Contact Info) Description 07/01/2025 2:30 PM EST Office Visit Neurology [address] [place] [address] Donald Alberts, DO [address] [place] [address] 6 month follow up Health Maintenance Due Date Last Done Comments Anxiety Screening 1963 Depression Screening 1963 Hepatitis C Screening 1963 DTaP,Tdap,Td Vaccine (1 - Tdap) 05/28/2017 7 Advance Directive Discussion 07/29/2024 Medicare Advantage Annual We llness Visit 07/29/2024 Influenza Vaccine (#1) 2025 4, 04/22/2023, 04/23/2022, Additional history exists Diabetes Screening 06/24/2026 06/24/2023, 1 08/20/2020, 06/20/2021, Additional history exists Pneumococcal Vaccine: 50+ Completed 09/06/2017, 08/2015 Shingrix Vaccine Completed 11/20/2018, 02/17/2018 RSV Vaccine Completed 05/13/2023 Insurance [employer] MEDICARE Care Teams Microfilm Clerk Relationship Specialty Start Date End Date Nathan Hartman MD [address] [place] [address] PCP - General Family Medicine 07/29/20
--- OUTSIDE RECORDS SUMMARY | 2025-03-31 08:33 | XMS_ITS | Encounter Summary ---
Author Organization [facility] Address [address] [place] [address] Care Team Providers Care Press Box Custodian Name Role Phone Nathan Hartman MD Primary Care Provider [phone] Source Comments In the event this information is protected by the Federal Confidentiality of Alcohol and Drug AbusePatient Records regulations: The Federal rules restrict any use of the information to criminally investigate or prosecute any alcohol or drug abuse patient.[facility] Encounter Details Date Type Department Care Team (Late st Contact Info) Description 12/22/2021 Patient Msg Neurology [address] [place], [place] [phone] Provider, [facility] Appointment Canceled Social History Tobacco Use Types Packs/Day Years [...] 02/28 PHQ-2 Answer Date Recorded PHQ-2 score 0 09/05/2021 Area Deprivation Index Answer Date Kit rded National Score (1-100), lower number is lower ri sk Not on file 07/05/2020 State Score (1-10), lower number is lower risk N ot on file 07/05/2020 Data from: https://www.neighborhoodatlas.medicine.[facility].edu/. Last address used for calculation Not on file 07/05/2020 Sex and Gender Information Value Date Recorded Sex Assigned at Male 03/30/2019 6:28 PM EDT Legal Sex Male 10:46 AM EDT Gender Identity Male 03/30/2019 6:28 PM EDT Sexual Orientation Not on file documented as of this encounter Plan of Treatment Upcoming Encounters Date Type Department Care Team (Late st Contact Info) Description 07/01/2025 2:30 PM EST Office Visit Neurology [address] [place] [address] Donald Alberts, DO [address] [place] [address] 6 month follow up documented as of this encounter Visit Diagnoses Not on filedocumented in this encounter Care Teams Press Box Custodian Relationship Specialty Start Date End Date Nathan Hartman MD [address] [place] [address] PCP - General Family Medicine 07/29/20 documented as of this encounter
--- OUTSIDE RECORDS SUMMARY | 2025-03-31 08:33 | XMS_ITS | Encounter Summary ---
Author Organization [facility] Address [address] [place] [address] Care Team Providers Care Pillow Agent Name Role Phone Nathan Hartman MD Primary Care Provider [phone] Encounter Details Date Type Department Care Team (Late st Contact Info) Description 09/24/2024 Orders Only [facility] [address] [place] [address] Nathan Hartman MD [address] [place] [address] Social History Tobacco Use Types Packs/Day Years [...] often do you attend chur ch or faith services? Never 11/28/2023 Do you belong to any clubs o r organizations such as pentecostalism groups, unions, fraternal or athletic groups, or [...] Recorded Patient Health Questionnaire-2 Score 0 02/04/2024 [facility] Questionnaire Answer Date Recorded [...] place to sleep or slept in a penitentiary (including now)? No 11/28/2023 Sex and Gender Information Value Date Recorded Sex Assigned at Not on file Legal Sex Male 8:32 PM EDT Gender Identity Not on file Sexual Orientation Not on file documented as of this encounter Plan of Treatment Upcoming Encounters Date Type Department Care Team (Late st Contact Info) Description 05/12/2025 1:15 PM EDT Procedure Visit [facility] [address] [place] [address] Ky Santo DPM [address] [place], [place] [phone] documented as of this encounter Procedures Procedure Name Priority Date/Time Associated Diagnosis Comments ELECTROCARDIOGRAM REPORT Routine 025 8:40 AM EST documented in this encounter Results * Electrocardiogram Report (09/23/2024 8:40 AM EST) us Nathan Hartman MD IN CLINIC/BEDSIDE ORDERABLES Fin al Result documented in this encounter Visit Diagnoses Not on filedocumented in this encounter Care Teams Pillow Agent Relationship Specialty Start Date End Date Nathan Hartman MD PCP - General Family Medicine 09/10/23 documented as of this encounter
--- OUTSIDE RECORDS SUMMARY | 2025-03-31 08:33 | XMS_ITS | Encounter Summary ---
Author Organization [facility] Address [address] [place] [address] Care Team Providers Care Rotary Machine Operator Name Role Phone Nathan Hartman MD Primary Care Provider Encounter Details Date Type Department Care Team (Late st Contact Info) Description 11/04/2024 Orders Only [facility] [address] [place] [address] Jamshid, Darlene, OD [address] [place], [place] [id number] Social History Tobacco Use Types Packs/Day Years [...] often do you attend chur ch or adventist services? Never 11/28/2023 Do you belong to any clubs o r organizations such as hoahaoism groups, unions, fraternal or athletic groups, or [...] Recorded Patient Health Questionnaire-2 Score 0 02/04/2024 [facility] Questionnaire Answer Date Recorded [...] EDT Procedure Visit [facility] [address] [facility] [place] [address] Ky Santo DPM [address] [place] [address] documented as of this encounter Procedures Procedure Name Priority Date/Time Associated Diagnosis Comments DIABETIC RETINOPATHY SCREENING - OU - BOTH EYES Routine 11/04/2024 11:55 AM EDT documented in this encounter Results * Diabetic Retinopathy Screening - OU - Both Eyes (11/04/2024 11:55 AM EDT) Anatomical Region Laterality Modality Head Other us Darlene Jamshid OD OPHTH PHOTOGRAPHY Final Result documented in this encounter Visit Diagnoses Not on filedocumented in this encounter Care Teams Rotary Machine Operator Relationship Specialty Start Date End Date Nathan Hartman MD PCP - General Family Medicine 09/10/23 documented as of this encounter
--- OUTSIDE RECORDS SUMMARY | 2025-03-31 08:33 | XMS_ITS | Clinical Summary ---
Author Organization [facility] Address [address] [place] [address] Phone Care Team Providers Care Elevated Guard Name Role Phone Unavailable Primary Care Provider Unavailabl e Social History Tobacco Use Types Packs/Day Years Used Date Smoking Tobacco: Never Assessed Sex and Gender Information Value Date Recorded Sex Assigned at Not on file Legal Sex Male 10:36 AM EST Gender Identity Not on file Sexual Orientation Not on file Plan of Treatment Not on file
--- OUTSIDE RECORDS SUMMARY | 2025-03-31 08:33 | XMS_ITS | Encounter Summary ---
Author Organization [facility] Address [address] [place] [address] Care Team Providers Care Corncob Pipe Manufacturing Supervisor Name Role Phone Nathan Hartman MD Primary Care Provider [phone] Source Comments In the event this information is protected by the Federal Confidentiality of Alcohol and Drug AbusePatient Records regulations: The Federal rules restrict any use of the information to criminally investigate or prosecute any alcohol or drug abuse patient.[facility] Encounter Details Date Type Department Care Team (Late st Contact Info) Description 09/08/2024 Patient Msg Neurology [address] [place] [id number] Provider, Eleuterio A Message from [facility] Social History Tobacco Use Types Packs/Day Years [...] PHQ-2 Answer Date Recorded PHQ-2 score 0 06/15/2024 Area Deprivation Index Answer Date Kit rded National Score (1-100), lower number is lower ri sk 89 12/05/2022 State Score (1-10), lower number is lower risk 8 12/05/2022 Data from: https://www.neighborhoodatlas.medicine.[facility].edu/. Last address used for calculation [address] 12/05/2022 Sex and Gender Information Value Date Recorded Sex Assigned at Male 03/30/2019 6:28 PM EDT Legal Sex Male 10:46 AM EDT Gender Identity Male 03/30/2019 6:28 PM EDT Sexual Orientation Not on file documented as of this encounter Plan of Treatment Upcoming Encounters Date Type Department Care Team (Late st Contact Info) Description 07/01/2025 2:30 PM EST Office Visit Neurology [address] [place] [address] Donald Alberts, DO [address] [place] [address] 6 month follow up documented as of this encounter Visit Diagnoses Not on filedocumented in this encounter Care Teams Corncob Pipe Manufacturing Supervisor Relationship Specialty Start Date End Date Nathan Hartman MD [address] [place] [address] PCP - General Family Medicine 07/29/20 documented as of this encounter
--- OUTSIDE RECORDS SUMMARY | 2025-03-31 08:33 | XMS_ITS | Encounter Summary ---
Author Organization [facility] Address [address] [place] [address] Care Team Providers Care Business Unit Manager Name Role Phone Nathan Hartman MD Primary Care Provider [phone] Encounter Details Date Type Department Care Team (Late st Contact Info) Description 09/15/2024 Orders Only [facility] [address] [place] [address] Unallocated, [facility] Provider, [address] [place], [place] [phone] Social History Tobacco Use Types Packs/Day Years [...] often do you attend chur ch or restorationist services? Never 11/28/2023 Do you belong to any clubs o r organizations such as mormonism groups, unions, fraternal or athletic groups, or [...] Recorded Patient Health Questionnaire-2 Score 0 02/04/2024 [facility] Questionnaire Answer Date Recorded [...] place to sleep or slept in a senior care (including now)? No 11/28/2023 Sex and Gender Information Value Date Recorded Sex Assigned at Not on file Legal Sex Male 8:32 PM EDT Gender Identity Not on file Sexual Orientation Not on file documented as of this encounter Plan of Treatment Upcoming Encounters Date Type Department Care Team (Late st Contact Info) Description 05/12/2025 1:15 PM EDT Procedure Visit [facility] [address] [place] [address] Ky Santo DPM [address] [place] [address] documented as of this encounter Procedures Procedure Name Priority Date/Time Associated Diagnosis Comments CT ABDOMEN & PELVIS W Routine 09/14/2024 8:39 AM EST documented in this encounter Results * CT ABDOMEN & PELVIS W (09/14/2024 8:39 AM EST) Anatomical Region Laterality Modality Radiographic Cynthia ging us [facility] Provider Unallocated MD SMITH XR PROCEDURES F inal Result documented in this encounter Visit Diagnoses Not on filedocumented in this encounter Care Teams Business Unit Manager Relationship Specialty Start Date End Date Nathan Hartman MD PCP - General Family Medicine 09/10/23 documented as of this encounter
--- OUTSIDE RECORDS SUMMARY | 2025-03-31 08:33 | XMS_ITS | Encounter Summary ---
Author Organization [facility] Address [address] [place] [address] Care Team Providers Care Community Program Assistant Name Role Phone Nathan Hartman MD Primary Care Provider [phone] Encounter Details Date Type Department Care Team (Late st Contact Info) Description 09/03/2024 Orders Only [facility] [address] [place] [address] Sheridan Frias MD [address] [place] [address] Social History Tobacco Use Types Packs/Day Years [...] often do you attend chur ch or anglican services? Never 11/28/2023 Do you belong to any clubs o r organizations such as mandaeism groups, unions, fraternal or athletic groups, or [...] Recorded Patient Health Questionnaire-2 Score 0 02/04/2024 [facility] - Occupational Stress Questionnaire Answer Date Recorded [...] place to sleep or slept in a long-term (including now)? No 11/28/2023 Sex and Gender Information Value Date Recorded Sex Assigned at Not on file Legal Sex Male 8:32 PM EDT Gender Identity Not on file Sexual Orientation Not on file documented as of this encounter Plan of Treatment Upcoming Encounters Date Type Department Care Team (Late st Contact Info) Description 05/12/2025 1:15 PM EDT Procedure Visit [facility] [address] [place] [address] Ky Santo DPM [address] [place], [place] [phone] documented as of this encounter Procedures Procedure Name Priority Date/Time Associated Diagnosis Comments XR KNEE 3 VIEWS RIGHT Routine 09/03/2024 3:37 PM EST documented in this encounter Results * XR knee 3 views right (09/03/2024 3:37 PM EST) Anatomical Region Laterality Modality Lower Extremities, Knee Right Radiogra phic Imaging Sheridan Frias MD IMG XR PROCEDURES Final Result documented in this encounter Visit Diagnoses Not on filedocumented in this encounter Care Teams Community Program Assistant Relationship Specialty Start Date End Date Nathan Hartman MD PCP - General Family Medicine 09/10/23 documented as of this encounter
--- OUTSIDE RECORDS SUMMARY | 2025-03-31 08:33 | XMS_ITS | Encounter Summary ---
Author Organization [facility] Address [address] [place] [address] Care Team Providers Care Communications Attendant Name Role Phone Nathan Hartman MD Primary Care Provider [phone] Reason for Visit * Reason Comments Med Refill Encounter Details Date Type Department Care Team (Late st Contact Info) Description 03/25/2025 [facility] [address] [place] [address] Nathan Hartman MD [address] [place] [id number] Type 2 diabetes mellitus with hyperglycemia, without long-term current use of insulin (HCC) Social History Tobacco Use Types Packs/Day Years Used Date Smoking Tobacco: Never Passive Smoke Exposure: Never Smokeless Tobacco: Never Alcohol Use Standard Drinks/Week Comments Never 0 (1 standard drink = 0.6 oz pur e alcohol) B1300 Health Literacy Answer Date Recor ded How often do you need to hav e someone help you when you read instructions, pamphlets, or other written material from your doctor or pharmacy? Sometimes 02/26/2025 Humiliation, Afraid, Rape, and Kick questionnair e Answer Date Recorded Within the last year, have y ou been afraid of your partner or ex-partner? No 02/26/2025 Within the last year, have y ou been humiliated or emotionally abused in other ways by your partner or ex-partner? No Within the last year, have y ou been kicked, hit, slapped, or otherwise physically hurt by your partner or ex-partner? No 02/26/2025 Within the last year, have y ou been raped or forced to have any kind of sexual activity by your partner or ex-partner? No 02/26/2025 Social Connection and Isolat ion Panel [NHANES] Answer Date Recorded In a typical week, how many times do you talk on the phone with family, friends, or neighbors? Once a week 02/26/2025 How often do you get togethe r with friends or relatives? More than three times a week 02/26/2025 How often do you attend chur or anglican services? Never 02/26/2025 Do you belong to any clubs o r organizations such as rastafarian groups, unions, fraternal or athletic groups, or school groups? No 02/26/2025 Attends Club or Organization Meetings Not on annel e 02/26/2025 Are you , , di vorced, , never , or living with a partner? 02/26/2025 AUDIT-C Answer Date Recorded Q1: How often do you have a drink containing alcohol? Never 02/26/2025 Q2: How many drinks containi ng alcohol do you have on a typical day when you are drinking? Patient does not drink Q3: How often do you have si x or more drinks on one occasion? Never 02/26/2025 Overall Financial Resource Strain (CARDIA) Answe r Date Recorded How hard is it for you to pa y for the very basics like food, housing, medical care, and heating? Not hard at all 02/26/2025 PHQ-2 Answer Date Recorded Patient Health Questionnaire-2 Score 0 02/04/2024 [facility] [place] of Occupat ional Health - Occupational Stress Questionnaire Answer Date Recorded Do you feel stress - tense, restless, nervous, or anxious, or unable to sleep at night because your mind is troubled all the time - these days? Not at all 02/26/2025 Exercise Vital Sign Answer Date Recorde d On average, how many days pe r week do you engage in moderate to strenuous exercise (like a brisk walk)? 3 days 02/26/2025 On average, how many minutes do you engage in exercise at this level? 50 min 02/26/2025 Hunger Vital Sign Answer Date Recorded Within the past 12 months, y ou worried that your food would run out before you got the money to buy more. Never true 02/27/20 25 Within the past 12 months, t he food you bought just didn't last and you didn't have money to get more. Never true 02/26/2025 PRAPARE - Transportation Answer Date Re corded In the past 12 months, has l ack of transportation kept you from medical appointments or from getting medications? No 07/2024 In the past 12 months, has l ack of transportation kept you from meetings, work, or from getting things needed for daily living? No 02/26/2025 Housing Stability Vital Sign Answer Brandt e [...] place to sleep or slept in a care home (including now)? No 11/28/2023 Housing Stability Vital Sign Answer Brandt e Recorded In the last 12 months, was t here a time when you were not able to pay the mortgage or rent on time? No 02/26/2025 In the past 12 months, how m any times have you moved where you were living? 0 02/26/2025 [facility] time [facility] the [facility] or living in a care home (including now)? No 02/26/2025 Sex and Gender Information Value Date Recorded Sex Assigned at Not on file Legal Sex Male 8:32 PM EDT Gender Identity Not on file Sexual Orientation Not on file documented as of this encounter Plan of Treatment Upcoming Encounters Date Type Department Care Team (Late st Contact Info) Description 05/12/2025 1:15 PM EDT [facility] [address] [place] [phone] Ky Santo DPM [address] [place] [address] documented as of this encounter Visit Diagnoses Diagnosis Type 2 diabetes mellitus with hyperglycemia, without long-term current use of insulin (HCC) documented in this encounter Care Teams Communications Attendant Relationship Specialty Start Date End Date Nathan Hartman MD PCP - General Family Medicine 09/10/23 documented as of this encounter
--- OUTSIDE RECORDS SUMMARY | 2025-03-31 08:33 | XMS_ITS | Clinical Summary ---
Author Organization [facility] Address [address] [place] [address] Care Team Providers Care Cement Tester Assistant Name Role Phone Nathan Hartman MD Primary Care Provider [phone] Allergies No known active allergies Medications carbidopa-levodop a (Parcopa) 25-100 MG disintegrating tablet Take 2 tablets by mouth in the morning and 2 tablets at noon and 2 tablets in the evening and 2 tablets before bedtime. 1 1/2 tab 4x daily. Active rasagiline (Azilect) 0.5 MG tablet Take 1 mg by mouth Daily Active aspirin 81 MG EC tablet Take 81 mg by mouth Daily Active magnesium 250 MG tablet Take by mouth Active Multiple Vitamin (multivitamin) tablet Take 1 tablet by mouth Daily Active acetaminophen (Tylenol 8 Hour) 650 MG ER tablet Take 650 mg by mouth every 8 (eight) hours if needed for mild pain Do not crush, chew, or split. Active omeprazole (PriLOSEC) [address] capsuleIndication s:Epigastric abdominal pain TAKE 1 CAPSULE IN THE MORNING BEFORE A MEAL. DO NOT CRUSH OR CHEW 90 capsule 3 025 Active oxyCODONE-acetami nophen (Percocet) 5-325 MG tablet every 4 (four) hours if needed for severe pain Active polyethylene glycol, PEG, 3350 (Miralax) 17 g packet Take 17 g by mouth Daily Active meloxicam (Mobic) 7.5 MG tabletIndications :DDD (degenerative disc disease), lumbar TAKE 1 TABLET DAILY 90 tablet 3 025 Active metFORMIN XR (Glucophage-XR) 500 MG 24 hr tabletIndications :Type 2 diabetes mellitus with hyperglycemia, without long-term current use of insulin ([facility]) TAKE 1 TABLET IN THE MORNING AND BEFORE BEDTIME.DO NOT CRUSH, CHEW OR SPLIT 180 tablet 3 025 Active simvastatin (Zocor) 40 MG tabletIndications :Dyslipidemia TAKE 1 TABLET AT BEDTIME 90 tablet 3 025 Active glipiZIDE (Glucotrol) 10 MG tabletIndications :Type 2 diabetes mellitus with hyperglycemia, without long-term current use of insulin ([facility]) Take 2 tablets (20 mg) by mouth in the morning and 2 tablets (20 mg) in the evening. Take before meals. 360 tablet 3 025 Active Januvia 100 MG tabletIndications :Type 2 diabetes mellitus with hyperglycemia, without long-term current use of insulin ([facility]) TAKE 1 TABLET BY MOUTH EVERY DAY 30 tablet 5 025 Active SITagliptin (Januvia) 100 MG tabletIndications :Type 2 diabetes mellitus with hyperglycemia, without long-term current use of insulin ([facility]) Take 1 tablet (100 mg) by mouth Daily 30 tablet 5 025 2024 Discontinued glipiZIDE (Glucotrol) 10 MG tabletIndications :Type 2 diabetes mellitus with hyperglycemia, without long-term current use of insulin ([facility]) TAKE 1 TABLET IN THE MORNING AND 1 TABLET IN THEEVENING BEFORE MEALS 180 tablet 3 025 2024 Discontinued(R wen) Active Problems Problem Noted Date Diagnosed Date Dysphagia 03/03/2025 Assessment & Plan (03/03/2025 2:51 PM EDT): Notice problems swallowing and refer for speech bedside swallow eval and therapy. Acute cystitis without hematuria 11/30/2024 Kidney stone 10/02/2024 Assessment & Plan (10/02/2024 11:16 AM EST): Recent stone but passed and pain resolved. Increase fluids and monitor. Unsteady gait 03/05/2024 Chronic midline low back pain without sciatica 0 12/11/2023 Fall 12/11/2023 Assessment & Plan (10/02/2024 11:16 AM EST): Frequent falls and resume PT. Assessment & Plan (02/04/2024 1:37 PM EDT): Fall at home, froze and legs gave out. Hx of parkinson. He goes regularly to Parkinson specific therapy classes and also has regular PT. Encounter for long-term (current) use of medicat ions 12/02/2023 DDD (degenerative disc disease), lumbar 09/10/19 24 Assessment & Plan (03/03/2025 2:51 PM EDT): Pain worse and refer back to pain management. Increase activity and try to walk regularly. Use OTC PRN. Assessment & Plan (11/30/2024 11:05 AM EDT): Pain stable and walk regularly. Use OTC PRN. If worsens return to pain management. Assessment & Plan (06/01/2024 10:56 AM EST): Pain stable and walk regularly. Use OTC PRN. If worsens return to pain management. Assessment & Plan (12/02/2023 11:08 AM EDT): Pain stable and walk regularly. Use OTC PRN. If worsens return to pain management. Dyslipidemia 09/10/2023 Elevated PSA 09/10/2023 Essential hypertension, benign 09/10/2023 Assessment & Plan (03/03/2025 2:51 PM EDT): BP normal and monitor PRN. Assessment & Plan (11/30/2024 11:06 AM EDT): BP normal and monitor PRN. Assessment & Plan (06/01/2024 10:56 AM EST): BP normal and monitor PRN. Assessment & Plan (03/05/2024 2:44 PM EDT): BP normal and monitor PRN. Assessment & Plan (02/04/2024 1:35 PM EDT): Too tightly controlled, given his age, parkinson, risk of falls. Stop Toprol and ramipril Monitor BP w/o medications. Assessment & Plan (12/02/2023 11:08 AM EDT): BP controlled and monitor PRN. Generalized osteoarthritis 09/10/2023 Parkinson disease, symptomatic 09/10/2023 Assessment & Plan (03/03/2025 2:51 PM EDT): Symptoms stable and follow with neurology. Assessment & Plan (11/30/2024 11:06 AM EDT): Symptoms stable and follow with neurology. Assessment & Plan (10/02/2024 11:16 AM EST): Symptoms stable and follow with neurology. Assessment & Plan (06/01/2024 10:56 AM EST): Symptoms stable and follow with neurology. Assessment & Plan (12/02/2023 11:09 AM EDT): Symptoms stable and follow with neurology. Epigastric abdominal pain 09/10/2023 Assessment & Plan (09/10/2023 12:09 PM EST): Unclear cause of pain but possible gastritis or ulcer. Start omeprazole BID. Check UGI and US gallbladder. If pain or symptoms worsens go to ER. Type 2 diabetes mellitus wit h hyperglycemia, without long-term current use of insulin 07/01/2023 Assessment & Plan (03/03/2025 2:52 PM EDT): BS elevated and increase glipizide. Stick to ADA diet and limit carbs. Assessment & Plan (11/30/2024 11:06 AM EDT): BS seems to be higher since starting januvia and monitor. A1C last month 7.5. Assessment & Plan (10/02/2024 11:17 AM EST): BS stable but recent UTI and sore on penis. Stop jardiance and start januvia. Due for A1C. Assessment & Plan (06/01/2024 10:56 AM EST): BS elevated and due for labs. If A1C elevated will adjust medication. Stick to ADA diet and limit carbs. Assessment & Plan (12/02/2023 11:09 AM EDT): BS elevated and due for labs. If A1C elevated will adjust medication. Stick to ADA diet and limit carbs. Resolved Problems Problem Noted Date Diagnosed Date Resolved Date Traumatic closed nondisplace d fracture of one rib with routine healing, left 10/02/2024 Assessment & Plan (10/02/2024 11:16 AM EST): Recent fall and fracture. Start percocet PRN. Strain of calf muscle, subsequent encounter 09/07/2024 10/02/2024 Assessment & Plan (09/07/2024 12:18 PM EST): History and exam shows calf strain. Treat with prednisone. Alternate ice and heat. Resume PT. If no improvement may need imaging. Closed fracture of body of s ternum with routine healing 02/04/2024 10/02/2024 Assessment & Plan (03/05/2024 2:43 PM EDT): Pain improving and use percocet PRN. Start PT. Assessment & Plan (02/04/2024 1:36 PM EDT): Due to fall at home, non displaced, routine healing. Poorly controlled pain, called in oxycodone for patient. Repeat XR in 2-3 weeks, follow up with PCP in 2-3 weeks Gross hematuria 09/10/2023 10/02/2024 Encounters Date Type Department Care Team Description 03/25/2025 Refill [facility] [place] [facility] [address] [place] [phone] Nathan Hartman MD Type 2 diabetes mellitus with hyperglycemia, without long-term current use of insulin (HCC) 03/03/2025 10:30 AM EDT Office Visit [facility] [address] [place] [address] Nathan Hartman MD Type 2 diabetes mellitus with hyperglycemia, without long-term current use of insulin (HCC) (Primary Dx); Essential hypertension, benign ; Parkinson disease, symptomatic (HCC); Degeneration of intervertebral disc of lumbar region with discogenic back pain; Dysphagia, unspecified type 03/03/2025 [facility] [address] [place] [address] Nathan Hartman MD 03/03/2025 Bamboo flowsheet [facility] [address] [place] [address] Nathan Hartman MD 02/26/2025 Travel 02/04/2025 [facility] [address] [place] [address] Nathan Hartman MD DDD (degenerative disc disease), lumbar; Type 2 diabetes mellitus with hyperglycemia, without long-term current use of insulin ([facility]); Dyslipidemia 01/27/2025 1:15 PM EDT [facility] [address] [place] [address] Ky Santo DPM Dermatophytosis of nail (Primary Dx); Dystrophic nail; Pain around toenail, right foot; Pain around toenail, left foot 01/27/2025 [facility]amboo [facility] [address] [place] [address] Ky Santo DPM 01/27/2025 Travel 01/26/2025 Travel 01/24/2025 Travel from Last 3 Months Immunizations Immunization Administration Dates Next Due Influenza, High Dose Seasona l, Preservative Free 05/20/2024,04/29/2017,05/30/2016,06/08 Influenza, High-dose Seasona l, Quadrivalent, Preservative Free 04/23/2022 Influenza, Seasonal, Quadriv alent, Adjuvanted 04/22/2023,04/27/2021,05/05/2020 Influenza, injectable, MDCK, preservative free, quadrivalent 05/18/2019 Influenza, trivalent, adjuvanted 05/13/2018 Pneumococcal Conjugate PCV 13 05/30/2016 Pneumococcal Polysaccharide PPSV23 09/06/2017 RSV, recombinant, protein castro bunit RSVpreF, adjuvant reconstitu, 120mcg/0.5mL, PF (Arexvy) 05/13/2023 Td (adult), 5 Lf tetanus tox oid, preservative free, adsorbed 05/27/2017 Zoster, Recombinant 11/20/2018,02/17/2018 Family History Medical History Relation Name Comments Vision loss Father Elvin Wetzel Sr Cancer Mother Aida wetzel Relation Name Status Comments Father Elvin Wetzel Sr Mother Aida wetzel Social History Tobacco Use Types Packs/Day Years [...] 02/26/2025 How often do you attend chur ch or taoism services? Never 02/26/2025 Do you belong to any clubs o r organizations such as yazidi groups, unions, fraternal or athletic groups, or [...] Recorded Patient Health Questionnaire-2 Score 0 02/04/2024 [facility] Occupat ional Health - Occupational Stress [...] place to sleep or slept in a long term (including now)? No 11/28/2023 Housing Stability Vital Sign Answer Brandt e Recorded In the last 12 months, was t here a time when you were not able to pay the mortgage or rent on time? No 02/26/2025 In the past 12 months, how m any times have you moved where you were living? 0 02/26/2025 At any time in the past 12 m [facility], were you homeless or living in a long term (including now)? No 02/26/2025 Sex and Gender Information Value Date Recorded Sex Assigned at Not on file Legal Sex Male 8:32 PM EDT Gender Identity Not on file Sexual Orientation Not on file Last Filed Vital Signs Vital Sign Reading Time Taken Comments Blood Pressure 142/86 03/03/2025 10:30 AM EDT Pulse 93 03/03/2025 10:30 AM EDT Temperature 36.3 C (97.3 F) 03/03/2025 10:30 AM EDT Respiratory Rate 18 03/03/2025 10:30 AM EDT Oxygen Saturation 98% 03/03/2025 10:30 AM EDT Inhaled Oxygen Concentration - - Weight 71.2 kg (157 lb) 03/03/2025 10:30 AM EDT Height 180.3 cm (5' 11 ) 03/03/2025 10:30 AM EDT Body Mass Index 21.9 03/03/2025 10:30 AM EDT Plan of Treatment Upcoming Encounters Date Type Department Care Team (Late st Contact Info) Description 05/12/2025 1:15 PM EDT Procedure Visit [facility] [address] [place] [phone] Ky Santo DPM [address] [place], [place] [id number] Health Maintenance Due Date Last Done Comments Diabetes: Hemoglobin A1C 06/05/2024 12/04/2023, 05/30 Diabetes: Urine Protein Screening 12/03/2024 024 Influenza Vaccine (#1) 2025 4, 04/22/2023, 04/23/2022, Additional history exists Diabetes: Retinopathy Screening 11/04/2026 5, 10/01/2023 Pneumococcal Vaccine: 65+ Years Completed 8, 05/30/2016 Procedures Procedure Name Priority Date/Time Associated Diagnosis Comments DIABETIC RETINOPATHY SCREENING - OU - BOTH EYES Routine 11/04/2024 11:55 AM EDT HEMOGLOBIN A1C Routine 06/24/2023 12:46 PM EST from Last 3 Months or Most Recently Relevant to Health Maintenance Results * Diabetic Retinopathy Screening - OU - Both Eyes (11/04/2024 11:55 AM EDT) Anatomical Region Laterality Modality Head Other us [facility] OPHTH PHOTOGRAPHY Final Result * Hemoglobin A1c (06/24/2023 12:46 PM EST) Blood Venous blood specimen / Unknown us Nathan Hartman MD LAB BLOOD ORDERABLES Final Resul t from Last 3 Months or Most Recently Relevant to Health Maintenance Insurance [facility] [place] [address] [employer] MED[employer]ARE ADVANTAGE Care Teams Cement Tester Assistant Relationship Specialty Start Date End Date Nathan aHrtman MD PCP - General Family Medicine 09/10/23
--- OUTSIDE RECORDS SUMMARY | 2025-03-31 08:33 | XMS_ITS | Encounter Summary ---
Author Organization [facility] Address [address] [place] [address] Care Team Providers Care Special Delivery Messenger Name Role Phone Nathan Hartman MD Primary Care Provider [phone] Source Comments In the event this information is protected by the Federal Confidentiality of Alcohol and Drug AbusePatient Records regulations: The Federal rules restrict any use of the information to criminally investigate or prosecute any alcohol or drug abuse patient.[facility] Encounter Details Date Type Department Care Team (Late st Contact Info) Description 11/12/2024 Patient Msg Neurology [address] [place] [phone] Provider, [employer] Helps Us Understand Parkinson's Disease - Join Us To Learn How! Social History Tobacco Use Types Packs/Day Years [...] is lower risk 8 12/05/2022 Data from: https://www.neighborhoodatlas.medicine.[facility].edu/. Last address used for calculation [address] 12/05/2022 Sex and Gender Information Value Date Recorded Sex Assigned at Male 03/30/2019 6:28 PM EDT Legal Sex Male 10:46 AM EDT Gender Identity Male 03/30/2019 6:28 PM EDT Sexual Orientation Not on file documented as of this encounter Plan of Treatment Upcoming Encounters Date Type Department Care Team (Late st Contact Info) Description 07/01/2025 2:30 PM EST Office Visit Neurology [address] [place] [address] Donald Alberts, DO [address] [place] [address] 6 month follow up documented as of this encounter Visit Diagnoses Not on filedocumented in this encounter Care Teams Special Delivery Messenger Relationship Specialty Start Date End Date Nathan Hartman MD [address] [place] [address] PCP - General Family Medicine 07/29/20 documented as of this encounter
--- OUTSIDE RECORDS SUMMARY | 2025-03-31 08:33 | XMS_ITS | Encounter Summary ---
Author Organization [facility] Address [address] [place] [address] Care Team Providers Care Linux Network Administrator Name Role Phone Nathan Hartman MD Primary Care Provider [phone] Source Comments In the event this information is protected by the Federal Confidentiality of Alcohol and Drug AbusePatient Records regulations: The Federal rules restrict any use of the information to criminally investigate or prosecute any alcohol or drug abuse patient.[facility] Encounter Details Date Type Department Care Team (Late st Contact Info) Description 07/01/2019 Patient Msg Neurology [address] [place] [address] Donald Alberts, DO [address] [place] [address] RE: Request an Appointment Social History Tobacco Use Types Packs/Day Years [...] file 02/28 PHQ-2 Answer Date Recorded PHQ-2 Score 0 06/06/2019 Sex and Gender Information Value Date Recorded Sex Assigned at Male 03/30/2019 6:28 PM EDT Legal Sex Male 10:46 AM EDT Gender Identity Male 03/30/2019 6:28 PM EDT Sexual Orientation Not on file documented as of this encounter Plan of Treatment Upcoming Encounters Date Type Department Care Team (Late st Contact Info) Description 07/01/2025 2:30 PM EST Office Visit Neurology [address] [place] [address] Donald Alberts, DO [address] [place] [address] 6 month follow up documented as of this encounter Visit Diagnoses Not on filedocumented in this encounter Care Teams Linux Network Administrator Relationship Specialty Start Date End Date Nathan Hartman MD [address] [place] [address] PCP - General Family Medicine 07/29/20 documented as of this encounter
--- OUTSIDE RECORDS SUMMARY | 2025-03-31 08:33 | XMS_ITS | Encounter Summary ---
Author Organization [facility] Address [address] [place] [address] Care Team Providers Care It Systems Analyst Consultant Name Role Phone Nathan Hartman MD Primary Care Provider [phone] Encounter Details Date Type Department Care Team (Late st Contact Info) Description 11/05/2024 Orders Only [facility] [address] [place] [address] Nathan Hartman MD [address] [place] [address] Social History Tobacco Use Types Packs/Day Years [...] often do you attend chur ch or latter day services? Never 11/28/2023 Do you belong to any clubs o r organizations such as baptist groups, unions, fraternal or athletic groups, or [...] Recorded Patient Health Questionnaire-2 Score 0 02/04/2024 [facility] Answer Date Recorded [...] the money to buy more. Never true 05/02/20 24 Within the past 12 months, t [...] place to sleep or slept in a skilled nursing (including now)? No 11/28/2023 Sex and Gender Information Value Date Recorded Sex Assigned at Not on file Legal Sex Male 8:32 PM EDT Gender Identity Not on file Sexual Orientation Not on file documented as of this encounter Plan of Treatment Upcoming Encounters Date Type Department Care Team (Late st Contact Info) Description 05/12/2025 1:15 PM EDT Procedure Visit [facility] [address] [place] [phone] Ky Santo DPM [address] [place], [place] [id number] documented as of this encounter Visit Diagnoses Not on filedocumented in this encounter Care Teams It Systems Analyst Consultant Relationship Specialty Start Date End Date Nathan Hartman MD PCP - General Family Medicine 09/10/23 documented as of this encounter
--- OUTSIDE RECORDS SUMMARY | 2025-03-31 08:33 | XMS_ITS | Encounter Summary ---
Author Organization [facility] Address [address] [place] [address] Care Team Providers Care Housemaid Name Role Phone Nathan Hartman MD Primary Care Provider [phone] Encounter Details Date Type Department Care Team (Late st Contact Info) Description 02/19/2024 Orders Only [facility] [address] [place] [address] Shaikh Harris MD [address] [place] [address] Social History Tobacco Use Types Packs/Day Years [...] often do you attend chur ch or yazidism services? Never 11/28/2023 Do you belong to any clubs o r organizations such as temple groups, unions, fraternal or athletic groups, or [...] Recorded Patient Health Questionnaire-2 Score 0 02/04/2024 [facility] - Occupational Stress Questionnaire Answer Date [...] place to sleep or slept in a detention (including now)? No 11/28/2023 Sex and Gender Information Value Date Recorded Sex Assigned at Not on file Legal Sex Male 8:32 PM EDT Gender Identity Not on file Sexual Orientation Not on file documented as of this encounter Plan of Treatment Upcoming Encounters Date Type Department Care Team (Late st Contact Info) Description 05/12/2025 1:15 PM EDT Procedure Visit [facility] [address] [place] [phone] Ky Santo DPM [address] [place], [place] [address] documented as of this encounter Procedures Procedure Name Priority Date/Time Associated Diagnosis Comments XR CHEST 2 VIEWS Routine 02/19/2024 7:45 AM EDT documented in this encounter Results * XR chest 2 views (02/19/2024 7:45 AM EDT) Anatomical Region Laterality Modality Chest Radiographic Cynthia ging us Shaikh Kimberly ADAM IMG XR PROCEDURES Final Result documented in this encounter Visit Diagnoses Not on filedocumented in this encounter Care Teams Housemaid Relationship Specialty Start Date End Date Nathan Hartman MD PCP - General Family Medicine 09/10/23 documented as of this encounter
--- OUTSIDE RECORDS SUMMARY | 2025-03-31 08:33 | XMS_ITS | Encounter Summary ---
Author Organization [facility] Address [address] [place] [address] Care Team Providers Care Horse Race Starter Name Role Phone Nathan Hartman MD Primary Care Provider [phone] Source Comments In the event this information is protected by the Federal Confidentiality of Alcohol and Drug AbusePatient Records regulations: The Federal rules restrict any use of the information to criminally investigate or prosecute any alcohol or drug abuse patient.[facility] Encounter Details Date Type Department Care Team (Late st Contact Info) Description 09/06/2021 Patient Msg Neurology [address] [place], [place] [phone] Provider, Eleuterio SIX MONTH FOLLOW UP APPOINTMENT WITH DR DONALD CHOU Social History Tobacco Use Types Packs/Day Years [...] N ot on file 07/05/2020 Data from: https://www.neighborhoodatlas.medicine.[facility].edu/. Last address used for calculation Not on file 07/05/2020 Sex and Gender Information Value Date Recorded Sex Assigned at Male 03/30/2019 6:28 PM EDT Legal Sex Male 10:46 AM EDT Gender Identity Male 03/30/2019 6:28 PM EDT Sexual Orientation Not on file COVID-19 Exposure Response Date Recorded In the last month, have you been in contact with someone who was confirmed or suspected to have Coronavirus / COVID-19? No / Unsure 09/06/2021 12:26 PM EST documented as of this encounter Plan of Treatment Upcoming Encounters Date Type Department Care Team (Late st Contact Info) Description 07/01/2025 2:30 PM EST Office Visit Neurology [address] [place] [address] Donald Chou, DO [address] [place] [address] 6 month follow up documented as of this encounter Visit Diagnoses Not on filedocumented in this encounter Care Teams Horse Race Starter Relationship Specialty Start Date End Date Nathan Hartman MD [address] [place] [address] PCP - General Family Medicine 07/29/20 documented as of this encounter
--- OUTSIDE RECORDS SUMMARY | 2025-03-31 08:33 | XMS_ITS | Encounter Summary ---
Author Organization [facility] Address [address] [place] [address] Care Team Providers Care Machine Operator Hay Stacker Name Role Phone Nathan Hartman MD Primary Care Provider [phone] Encounter Details Date Type Department Care Team (Late st Contact Info) Description 03/03/2025 Abstract [facility] [address] [place] [address] Nathan Hartman MD [address] [place] [address] Social History Tobacco Use Types Packs/Day Years [...] any clubs o r organizations such as gnosticist groups, unions, fraternal or athletic groups, or [...] Recorded Patient Health Questionnaire-2 Score 0 02/04/2024 [facility] - Occupational Stress [...] in a long-term (including now)? No 11/28/2023 Housing Stability Vital Sign Answer Brandt e Recorded In the last 12 months, was t here a time when you were not able to pay the mortgage or rent on time? No 02/26/2025 In the past 12 months, how m any times have you moved where you were living? 0 02/26/2025 At any time in the past 12 m ont, were you homeless or living in a long-term (including now)? No 02/26/2025 Sex and Gender Information Value Date Recorded Sex Assigned at Not on file Legal Sex Male 8:32 PM EDT Gender Identity Not on file Sexual Orientation Not on file documented as of this encounter Plan of Treatment Upcoming Encounters Date Type Department Care Team (Late st Contact Info) Description 05/12/2025 1:15 PM EDT Procedure Visit [facility] [address] [place] [address] Ky Santo DPM [address] [place] [address] documented as of this encounter Visit Diagnoses Not on filedocumented in this encounter Care Teams Machine Operator Hay Stacker Relationship Specialty Start Date End Date Nathan Hartman MD PCP - General Family Medicine 09/10/23 documented as of this encounter
--- OUTSIDE RECORDS SUMMARY | 2025-03-31 08:33 | XMS_ITS | Encounter Summary ---
Author Organization [facility] Address [address] [place] [address] Care Team Providers Care Flarer Name Role Phone Nathan Hartman MD Primary Care Provider [phone] Source Comments In the event this information is protected by the Federal Confidentiality of Alcohol and Drug AbusePatient Records regulations: The Federal rules restrict any use of the information to criminally investigate or prosecute any alcohol or drug abuse patient.[facility] Encounter Details Date Type Department Care Team (Late st Contact Info) Description 07/01/2019 Patient Msg Neurology [address] [place] [address] Donald Alberts, DO [address] [place] [address] Appointment Request Social History Tobacco Use Types Packs/Day Years [...] 07/01/2025 2:30 PM EST Office Visit Neurology [address] [facility] [place] [address] Donald Alberts, DO [address] [place] [address] 6 month follow up documented as of this encounter Visit Diagnoses Not on filedocumented in this encounter Care Teams Flarer Relationship Specialty Start Date End Date Nathan Hartman MD [address] [place] [address] PCP - General Family Medicine 07/29/20 documented as of this encounter
--- OUTSIDE RECORDS SUMMARY | 2025-03-31 08:34 | XMS_ITS | Encounter Summary ---
Author Organization [facility] Address [address] [place] [address] Care Team Providers Care Toy Stuffer Name Role Phone Nathan Bolton MD Primary Care Provider [phone] Encounter Details Date Type Department Care Team (Late st Contact Info) Description 09/13/2023 Clinisync Result Encounter [facility] External Department Unsolicited Nathan Bolton MD [address] [place] [address] Social History Tobacco Use Types Packs/Day Years [...] or ex-partner? No 09/09/2023 Social Connection and Isolation Panel [NHANES] A nswer Date Recorded In a typical week, how many times do you talk on the phone with family, friends, or neighbors? Three times a week 09/09/2023 How often do you get togethe r with friends or relatives? Once a week 09/09/2023 How often do you attend chur ch or jainism services? Never 09/09/2023 Do you belong to any clubs o r organizations such as baptist groups, unions, fraternal or athletic groups, or school groups? No 09/09/2023 Attends Club or Organization Meetings Not on annel e 09/09/2023 Are you , , di vorced, , never , or living with a partner? 09/09/2023 AUDIT-C Answer Date Recorded Q1: How often do you have a drink containing alcohol? Never 09/09/2023 Q2: How many drinks containi ng alcohol do you have on a typical day when you are drinking? Patient does not drink Q3: How often do you have si x or more drinks on one occasion? Never 09/09/2023 Overall Financial Resource Strain (CARDIA) Answe r Date Recorded How hard is it for you to pa y for the very basics like food, housing, medical care, and heating? Not hard at all 09/09/2023 [facility] - Occupational Stress Questionnaire Answer Date Recorded Do you feel stress - tense, restless, nervous, or anxious, or unable to sleep at night because your mind is troubled all the time - these days? Not at all 09/09/2023 Exercise Vital Sign Answer Date Recorde d On average, how many days pe r week do you engage in moderate to strenuous exercise (like a brisk walk)? 6 days 09/09/2023 On average, how many minutes do you engage in exercise at this level? 20 min 09/09/2023 Hunger Vital Sign Answer Date Recorded Within the past 12 months, y ou worried that your food would run out before you got the money to buy more. Never true 09/09/19 24 Within the past 12 months, t he food you bought just didn't last and you didn't have money to get more. Never true 09/09/2023 PRAPARE - Transportation Answer Date Re corded In the past 12 months, has l ack of transportation kept you from medical appointments or from getting medications? No 08/29 In the past 12 months, has l ack of transportation kept you from meetings, work, or from getting things needed for daily living? No 09/09/2023 Housing Stability Vital Sign Answer Brandt e Recorded In the last 12 months, was t here a time when you were not able to pay the mortgage or rent on time? No 09/09/2023 In the last 12 months, how many places have you lived? 2 09/09/2023 In the last 12 months, was t here a time when you did not have a steady place to sleep or slept in a snf (including now)? No 09/09/2023 Sex and Gender Information Value Date Recorded Sex Assigned at Not on file Legal Sex Male 8:32 PM EDT Gender Identity Not on file Sexual Orientation Not on file documented as of this encounter Plan of Treatment Upcoming Encounters Date Type Department Care Team (Late st Contact Info) Description 05/12/2025 1:15 PM EDT Procedure Visit [facility] [address] [place] [address] Ky Santo DPM [address] [place], [place] [address] documented as of this encounter Procedures Procedure Name Priority Date/Time Associated Diagnosis Comments FL UPPER GI W AIR* 09/13/2023 11 :01 AM EST documented in this encounter Results * FL UPPER GI W AIR* (09/13/2023 11:01 AM EST) Anatomical Region Laterality Modality Radiographic Cynthia ging 09/13/2023 11:0 1 AM EST Narrative 09/13/2023 11:04 AM EST The [address] [address] Fluoroscopy Report Signed Patient: HERRERA MARTINEZ MR#: [id number] : 1945 Acct:[id number] Age/Sex: 78 / M ADM Date: 09/13/23 Loc: US Attending Dr: Nathan Naderer M.D. Ordering Physician: Nathan Bolton M.D. Date of Service: 09/13/23 Procedure(s): FL upper GI w air Accession Number(s): [id number] cc: Nathan Bolton M.D. The [place] [address] Patient Name: HERRERA MARTINEZ MRN: [id number] date: 1945 Sex: M Assigned Patient Location: US Current Patient Location: US Accession/Order Number: [id number] Exam Date: 09/13/2023 09:45 Report Date: 09/13/2023 11:01 At the request of: NATHAN BOLTON Procedure: FL upper GI w air PROCEDURE: FL upper GI w air, FL cineradiography COMPARISON: None. HISTORY: Epigastric Abdominal Pain R10.13 TECHNIQUE: An air contrast upper gastrointestinal series was performed in the usual manner. Standard level fluoroscopic mode of operation utilized. FINDINGS: ESOPHAGUS: Trace amount gastroesophageal reflux. Mild tertiary waves and decreased peristalsis. No visible obstruction, dilatation, or hernia STOMACH: No obstruction, mass, or ulceration. Normal motility. DUODENUM:No ulceration or diverticulum. OTHER: Negative. FL/FL upper GI w air IMPRESSION: 1. Mild decreased peristalsis and tertiary waves of the esophagus; likely age related. 2. Trace amount of gastroesophageal reflux. 3. Unremarkable stomach. Electronically authenticated by: KY PEREZ Date: 09/13/2023 11:01 Dictated By: Ky Perez M.D. Signed By: 09/13/23 1104 DD/ 1101 TD/TT: Solar Field Service Technician: Procedure Note Radiology, Radiologist, MD - 09/13/2023 [place] [address] Fluoroscopy Report Signed Patient: HERRERA MARTINEZ UMR#: [id number] : 1945cct:[id number] Age/Sex: 78 / MADM Date: 09/13/23 Loc: US Attending Dr: Nathan Bolton M.D. Ordering Physician: Nathan Bolton M.D. Date of Service: 09/13/23 Procedure(s): FL upper GI w air Accession Number(s): [id number] cc: Nathan Bolton M.D. The [address] [address] Patient Name: HERRERA MARTINEZ MRN: [id number] date: 1945 Sex: M Assigned Patient Location: US Current Patient Location: US Accession/Order Number: [id number] Exam Date: 09/13/2023 09:45 Report Date: 09/13/2023 11:01 At the request of: NATHAN BOLTON Procedure: FL upper GI w air PROCEDURE: FL upper GI w air, FL cineradiography COMPARISON: None. HISTORY: Epigastric Abdominal Pain R10.13 TECHNIQUE: An air contrast upper gastrointestinal series was performed inthe usual manner. Standard level fluoroscopic mode of operation utilized. FINDINGS: ESOPHAGUS: Trace amount gastroesophageal reflux. Mild tertiary waves and decreased peristalsis. No visible obstruction, dilatation, or hernia STOMACH: No obstruction, mass, or ulceration. Normal motility. DUODENUM:No ulceration or diverticulum. OTHER: Negative. FL/FL upper GI w air IMPRESSION: 1. Mild decreased peristalsis and tertiary waves of the esophagus; likelyage related. 2. Trace amount of gastroesophageal reflux. 3. Unremarkable stomach. Electronically authenticated by: KY PEREZ Date: 09/13/2023 11:01 Dictated By: Ky Perez M.D. Signed By:09/13/23 1104 DD/ 1101 TD/TT: Solar Field Service Technician: Nathan Bolton MD IMG XR PROCEDURES Final Result documented in this encounter Visit Diagnoses Not on filedocumented in this encounter Care Teams Toy Stuffer Relationship Specialty Start Date End Date Nathan Bolton MD PCP - General Family Medicine 09/10/23 documented as of this encounter
--- OUTSIDE RECORDS SUMMARY | 2025-03-31 08:34 | XMS_ITS | Encounter Summary ---
Author Organization [facility] Address [address] [place] [address] Care Team Providers Care Jack Tamp Operator Name Role Phone Nathan Hartman MD Primary Care Provider [phone] Source Comments In the event this information is protected by the Federal Confidentiality of Alcohol and Drug AbusePatient Records regulations: The Federal rules restrict any use of the information to criminally investigate or prosecute any alcohol or drug abuse patient.[facility] Encounter Details Date Type Department Care Team (Late st Contact Info) Description 04/08/2020 Patient Msg Neurology [address] [place], [place] [phone] Provider, [facility] Follow up appointment needed Social History Tobacco Use Types Packs/Day Years [...] PHQ-2 Answer Date Recorded PHQ-2 score 0 04/05/2020 Sex and Gender Information Value Date Recorded Sex Assigned at Male 03/30/2019 6:28 PM EDT Legal Sex Male 10:46 AM EDT Gender Identity Male 03/30/2019 6:28 PM EDT Sexual Orientation Not on file COVID-19 Exposure Response Date Recorded In the last month, have you been in contact with someone who was confirmed or suspected to have Coronavirus / COVID-19? No / Unsure 04/08/2020 2:11 PM EDT documented as of this encounter Plan of Treatment Upcoming Encounters Date Type Department Care Team (Late st Contact Info) Description 07/01/2025 2:30 PM EST Office Visit Neurology [address] [place] [address] Donald Alberts, DO [address] [place] [address] 6 month follow up documented as of this encounter Visit Diagnoses Not on filedocumented in this encounter Care Teams Jack Tamp Operator Relationship Specialty Start Date End Date Nathan Hartman MD [address] [place] [address] PCP - General Family Medicine 07/29/20 documented as of this encounter
--- OUTSIDE RECORDS SUMMARY | 2025-03-31 08:34 | XMS_ITS | Encounter Summary ---
Author Organization [facility] Address [address] [place] [address] Care Team Providers Care Computer Systems Security Administrator Name Role Phone Nathan Hartman MD Primary Care Provider [phone] Source Comments In the event this information is protected by the Federal Confidentiality of Alcohol and Drug AbusePatient Records regulations: The Federal rules restrict any use of the information to criminally investigate or prosecute any alcohol or drug abuse patient.[facility] Encounter Details Date Type Department Care Team (Late st Contact Info) Description 02/18/2025 Patient Msg Neurology [address] [id number] Provider, Eleuterio Am I an [place] Candidate for New Therapies in Parkinson's Disease? Social History Tobacco Use Types Packs/Day Years [...] is lower risk 8 12/05/2022 Data from: https://www.neighborhoodatlas.medicine.[facility].edu/. Last address used for calculation [address] [facility] 12/05/2022 Sex and Gender Information Value Date Recorded Sex Assigned at Male 03/30/2019 6:28 PM EDT Legal Sex Male 10:46 AM EDT Gender Identity Male 03/30/2019 6:28 PM EDT Sexual Orientation Not on file documented as of this encounter Plan of Treatment Upcoming Encounters Date Type Department Care Team (Late st Contact Info) Description 07/01/2025 2:30 PM EST Office Visit Neurology [address] [place] [address] Donald Alberts, DO [address] [place] [address] 6 month follow up documented as of this encounter Visit Diagnoses Not on filedocumented in this encounter Care Teams Computer Systems Security Administrator Relationship Specialty Start Date End Date Nathan Hartman MD [address] [place] [address] PCP - General Family Medicine 07/29/20 documented as of this encounter
--- OUTSIDE RECORDS SUMMARY | 2025-03-31 08:34 | XMS_ITS | Encounter Summary ---
Author Organization [facility] Address [address] [place] [address] Care Team Providers Care Farmworker Egg Producing Farm Name Role Phone Nathan Hartman MD Primary Care Provider [phone] Nathan Hartman MD Primary Care Provider [phone] Encounter Details Date Type Department Care Team (Late st Contact Info) Description 05/08/2023 Abstract [facility] [address] [place] [address] Ky Santo DPM [address] [facility] [place], [place] [phone] Social History Tobacco Use Types Packs/Day Years Used Date Smoking Tobacco: Never Smokeless Tobacco: Never Tobacco Cessation:Counseling Given: Not Answered Alcohol Use Standard Drinks/Week Comments Never 0 (1 standard drink = 0.6 oz pur e alcohol) Sex and Gender Information Value Date Recorded Sex Assigned at Not on file Legal Sex Male 8:32 PM EDT Gender Identity Not on file Sexual Orientation Not on file documented as of this encounter Plan of Treatment Upcoming Encounters Date Type Department Care Team (Late st Contact Info) Description 05/12/2025 1:15 PM EDT Procedure Visit [facility] [address] [place] [address] Ky Santo DPM [address] [place], [place] [phone] documented as of this encounter Visit Diagnoses Not on filedocumented in this encounter Care Teams Farmworker [employer] Producing Farm Relationship Specialty Start Date End Date Nathan Hartman MD PCP - General Family Medicine 05/08/23 09/09/23 Nathan Hartman MD PCP - General Family Medicine 09/10/23 documented as of this encounter
--- OUTSIDE RECORDS SUMMARY | 2025-03-31 08:34 | XMS_ITS | Encounter Summary ---
Author Organization [facility] Address [address] [place] [address] Care Team Providers Care Algebraist Name Role Phone Nathan Hartman MD Primary Care Provider [phone] Nathan Hartman MD Primary Care Provider [phone] Encounter Details Date Type Department Care Team (Late st Contact Info) Description 09/02/2023 Orders [address] [address] [place] [address] Nathan Hartman MD [address] [place] [address] Social History Tobacco Use Types Packs/Day Years [...] Procedure Visit [facility] [address] [place] [phone] Ky Santo, MARK [address] [place] [address] documented as of this encounter Procedures Procedure Name Priority Date/Time Associated Diagnosis Comments HEMOGLOBIN A1C Routine 06/24/2023 12:46 PM EST documented in this encounter Results * Hemoglobin A1c (06/24/2023 12:46 PM EST) Blood Venous blood specimen / Unknown Nathan Hartman MD LAB BLOOD ORDERABLES Final Resul t documented in this encounter Visit Diagnoses Not on filedocumented in this encounter Care Teams Algebraist Relationship Specialty Start Date End Date Nathan Hartman MD PCP - General Family Medicine 05/08/23 09/09/23 Nathan Hartman MD PCP - General Family Medicine 09/10/23 documented as of this encounter
--- OUTSIDE RECORDS SUMMARY | 2025-03-31 08:34 | XMS_ITS | Clinical Summary ---
Author Organization [facility] Address [facility] [id number] [address] [place] [address] Care Team Providers Care Mechanical Maintenance Engineer Name Role Phone Nathan Hartman MD Primary Care Provider [phone] Allergies No known active allergies Medications aspirin 81 mgIndications:lashon cardial infarction prevention Take 1 tablet (81 mg total) by mouth in the morning. Indications: treatment to prevent a heart attack. Active magnesium 250 mg tabletIndications :hypomagnesemia Take 1 tablet (250 mg total) by mouth in the morning. Indications: low amount of magnesium in the blood. Active meloxicam (MOBIC) 7.5 mg tabletIndications :osteoarthritis Take 1 tablet (7.5 mg total) by mouth in the morning. Indications: joint damage causing pain and loss of function. 1 Active metoprolol succinate XL (TOPROL-XL) 50 mg 24 hr tabletIndications :hypertension Take 1 tablet (50 mg total) by mouth in the morning. Indications: high blood pressure. 1 Active ramipriL (ALTACE) 1.25 mg capsule Take 1 capsule (1.25 mg total) by mouth in the morning. Pt not sure why he is on this.. 1 Active rasagiline (AZILECT) 1 mg tabletIndications :idiopathic parkinsonism Take 1 tablet (1 mg total) by mouth in the morning. Indications: Parkinson's disease. 0 Active simvastatin (ZOCOR) 40 mg tabletIndications :hypercholesterol emia Take 1 tablet (40 mg total) by mouth nightly Indications: high cholesterol. 1 Active leglebqj-hshj-FS- calcium &mins (THERAGRAN-M) 9 mg iron-400 mcg tablet Take 1 tablet by mouth in the morning. Active metFORMIN (GLUCOPHAGE) 500 mg tabletIndications :type 2 diabetes mellitus Take 1 tablet (500 mg total) by mouth in the morning and 1 tablet (500 mg total) before bedtime. Indications: type 2 diabetes mellitus. Active vitamin E 200 units capsule Take 2 capsules (400 Units total) by mouth in the morning. Active carbidopa-levodop a (SINEMET) 25-100 mg per tablet Take 1.5 tablets by mouth in the morning and 1.5 tablets at noon and 1.5 tablets in the evening and 1.5 tablets before bedtime. 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 Time of cystoscopy bulbar urethral stricture noted. Successfully dilated. Improved lower urinary tract domain Plan: Will monitor for any recurrence . Hematuria, gross 12/21/2020 Overview (05/25/2024): ==== 05/25/2024 ==== no interval gross hematuria ==== 05/20/2023 ==== no interval gross hematuria last cytology was negative. ==== 08/15/2022 ==== no interval gross hematuria. Cytology today. ==== 03/06/2021 ==== status post initial hematuria evaluation with the dilation bulbar urethral stricture. Improve urination. No interval gross hematuria. (pt does bruse/bleed easily--group home issue) ==== 12/21/2020 ==== history gross hematuria. [...] Potential ureteroscopy. Urine for Cytology. Elevated PSA 12/21/2020 Overview (05/25/2024): ==== 05/25/2024 ==== PSA slightly higher at [...] good. At some point may consider MRI Assessment & Plan (08/15/2022 2:14 PM EST): Given the stability of his findings will get a PSA in 9 months Assessment & Plan (02/07/2022 2:11 PM EDT): We will recheck in 6 months. I told him to call sooner if any problems Assessment & Plan (05/08/2021 11:41 AM EDT): Rationale for MRI fusion guided biopsy the prostate discuss with patient and his . The details procedure discussed. Understands I am 1 of 3 partners who performs procedure. I will see him back in the office to review pathology. Assessment & Plan (12/21/2020 3:35 PM EDT): The etiologies of elevated PSA including prostate cancer, BPH, natural variation, laboratory error, recent ejaculation, instrumentation, clinical or subclinical infection were reviewed. Options of ultrasound prostate biopsy, active surveillance, repeating the test, or non-intervention were discussed. We discussed the lack of evidence supporting empiric antibiotics. Discussed risk finding prostate cancer in 1:3 men with a PSA above 4 and 1:4 men with a PSA above 3. Pt understands that disease volume and grade are not necessarily correlated with PSA values (especially with PSA less than 10) and that patients can harbor significant /life- threatening disease within this PSA range Risks of biopsy including bleeding, infection, urinary retention, and false- negative results were reviewed. questions were answered. Family History Medical History Relation Name Comments Heart failure Father Cancer Mother Anesthesia problems Neg Hx Relation Name Status Comments Father Mother Social History Tobacco Use Types Packs/Day Years Used Date Smoking Tobacco: Never Smokeless Tobacco: Never Alcohol Use Standard Drinks/Week Comments Never 0 (1 standard drink = 0.6 oz pur e alcohol) Childcare Answer Date Recorded Childcare Unknown 01/07/2019 Employment Answer Date Recorded Employment Unknown 01/07/2019 Hunger Screening Answer Date Recorded Within the past 12 months we worried whether our food would run out before we got money to buy more. Never True 05/25/2024 Within the past 12 months th e food we bought just didn't last and we didn't have money to get more. Never True 05/25/2024 Sex and Gender Information Value Date Recorded Sex Assigned at Male 03/03/2021 4:28 PM EDT Legal Sex Male 11:23 AM EDT Gender Identity Male 03/03/2021 4:28 PM EDT Sexual Orientation Straight 07/08/2021 10 :38 AM EST Last Filed Vital Signs Vital Sign Reading Time Taken Comments Blood Pressure 128/73 05/25/2024 2:06 PM EDT Pulse 68 05/20/2023 2:09 PM EDT Temperature 36.4 C (97.5 F) 07/04/2021 11:15 AM EST Respiratory Rate 18 08/15/2022 1:51 PM EST Oxygen Saturation 100% 07/04/2021 11:15 AM EST Inhaled Oxygen Concentration - - Weight 72.6 kg (160 lb) 05/25/2024 2:06 PM EDT Height 180.3 cm (5' 11 ) 05/25/2024 2:06 PM EDT Body Mass Index 22.32 05/25/2024 2:06 PM EDT Plan of Treatment Upcoming Encounters Date Type Department Care Team (Late st Contact Info) Description 06/02/2025 1:15 PM EST Office Visit [facility] [address] [place] [address] [place] [address] [place] [address] Reagan Shafer MD [address] [place] [id number] Health Maintenance Due Date Last Done Comments Depression Screening 1957 Fall Risk Screening 2011 COVID-19 Vaccine (2023-2 5 season) 2024 05/20/2024, 04/22/2023, 04/26/2022, Additional history exists Influenza Vaccine 03/29/2025 05/20/2024, , 04/23/2022, Additional history exists Tobacco Screening 05/25/2025 05/25/2024 DTaP,Tdap and Td Vaccines (2 - Td or Tdap) 05/27/2027 05/27/2017 Zoster (Shingles) Vaccine Completed 11/20/2018, Medical Devices Not [place] [address] [employer] MEDICARE Advance Directives Documents on File Type Date Recorded 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
--- OUTSIDE RECORDS SUMMARY | 2025-03-31 08:34 | XMS_ITS | Encounter Summary ---
Author Organization [facility] Address [address] [place] [address] Care Team Providers Care Machine Stapler Name Role Phone Nathan Hartman MD Primary Care Provider [phone] Source Comments In the event this information is protected by the Federal Confidentiality of Alcohol and Drug AbusePatient Records regulations: The Federal rules restrict any use of the information to criminally investigate or prosecute any alcohol or drug abuse patient.[facility] Encounter Details Date Type Department Care Team (Late st Contact Info) Description 01/12/2020 Patient Msg Neurology [address] [place] [address] Donald Alberts, DO [address] [place] [address] RE: Request an Appointment Social [...] 07/01/2025 2:30 PM EST Office Visit Neurology [address] [place] [address] Donald Alberts, DO [address] [place] [address] 6 month follow up documented as of this encounter Visit Diagnoses Not on filedocumented in this encounter Care Teams Machine Stapler Relationship Specialty Start Date End Date Nathan Hartman MD [address] [place] [address] PCP - General Family Medicine 07/29/20 documented as of this encounter
--- OUTSIDE RECORDS SUMMARY | 2025-03-31 08:34 | XMS_ITS | Encounter Summary ---
Author Organization [facility] Address [address] [place] [place] [address] Care Team Providers Care Metal Mine Inspector Name Role Phone Laine Bolton MD Primary Care Provider [phone] Encounter Details Date Type Department Care Team (Late st Contact Info) Description 09/13/2023 Clinisync Result Encounter [facility] External Department Unsolicited Laine Bolton MD [address] [place] [address] Social History Tobacco Use Types Packs/Day Years [...] often do you attend chur ch or mormonism services? Never 09/09/2023 Do you belong to any clubs o r organizations such as episcopal groups, unions, fraternal or athletic groups, or [...] and heating? Not hard at all 09/09/2023 [facility] - Occupational Stress [...] place to sleep or slept in a group home (including now)? No 09/09/2023 Sex and Gender Information Value Date Recorded Sex Assigned at Not on file Legal Sex Male 8:32 PM EDT Gender Identity Not on file Sexual Orientation Not on file documented as of this encounter Plan of Treatment Upcoming Encounters Date Type Department Care Team (Late st Contact Info) Description 05/12/2025 1:15 PM EDT Procedure Visit [facility] [address] [place] [phone] Ky Santo DPM [address] [place], [place] [phone] documented as of this encounter Procedures Procedure Name Priority Date/Time Associated Diagnosis Comments XR CINERADIOGRAPHY 09/13/2023 11 :01 AM EST documented in this encounter Results * XR CINERADIOGRAPHY (09/13/2023 11:01 AM EST) Anatomical Region Laterality Modality Other 09/13/2023 11:0 1 AM EST Narrative 09/13/2023 11:03 AM EST The [address] [address] Fluoroscopy Report Signed Patient: HERRERA MARTINEZ MR#: [id number] : 1945 Acct:[id number] Age/Sex: 78 / M ADM Date: 09/13/23 Loc: US Attending Dr: Laine Bolton M.D. Ordering Physician: Laine Bolton M.D. Date of Service: 09/13/23 Procedure(s): FL cineradiography Accession Number(s): [id number] cc: Laine Bolton M.D. The [address] [address] Patient Name: HERRERA MARTINEZ MRN: [id number] date: 1945 Sex: M Assigned Patient Location: US Current Patient Location: US Accession/Order Number: [id number] Exam Date: 09/13/2023 09:45 Report Date: 09/13/2023 11:01 At the request of: LAINE BOLTON Procedure: FL cineradiography PROCEDURE: FL upper GI w air, FL [...] DUODENUM:No ulceration or diverticulum. OTHER: Negative. FL/FL cineradiography IMPRESSION: 1. Mild decreased peristalsis and tertiary waves of the esophagus; likely age related. 2. Trace amount of gastroesophageal reflux. 3. Unremarkable stomach. Electronically authenticated by: KY PEREZ Date: 09/13/2023 11:01 Dictated By: Ky Perez M.D. Signed By: 09/13/23 1103 DD/ 1101 TD/TT: Marketing Services Specialist: Procedure Note Radiology, Radiologist, MD - 09/13/2023 [place] [address] Fluoroscopy Report Signed Patient: HERRERA MARTINEZ UMR#: [id number] : 7Acct:[id number] Age/Sex: 78 / MADM Date: 09/13/23 Loc: US Attending Dr: Laine Bolton M.D. Ordering Physician: Laine Bolton M.D. Date of Service: 09/13/23 Procedure(s): FL cineradiography Accession Number(s): [id number] cc: Laine Bolton M.D. The [place] [id number] Patient Name: HERRERA MARTINEZ MRN: [id number] date: 1945 Sex: M Assigned Patient Location: US Current Patient Location: US Accession/Order Number: [id number] Exam Date: 09/13/2023 09:45 Report Date: 09/13/2023 11:01 At the request of: LAINE BOLTON Procedure: FL cineradiography PROCEDURE: FL upper GI w air, FL [...] DUODENUM:No ulceration or diverticulum. OTHER: Negative. FL/FL cineradiography IMPRESSION: 1. Mild decreased peristalsis and tertiary waves of the esophagus; likelyage related. 2. Trace amount of gastroesophageal reflux. 3. Unremarkable stomach. Electronically authenticated by: KY PEREZ Date: 09/13/2023 11:01 Dictated By: Ky Perez M.D. Signed By:09/13/23 1103 DD/ 1101 TD/TT: Marketing Services Specialist: Laine Bolton MD [facility] Final Result documented in this encounter Visit Diagnoses Not on filedocumented in this encounter Care Teams Metal Mine Inspector Relationship Specialty Start Date End Date Laine Bolton MD PCP - General Family Medicine 09/10/23 documented as of this encounter
--- OUTSIDE RECORDS SUMMARY | 2025-03-31 08:34 | XMS_ITS | Encounter Summary ---
Author Organization [facility] Address [address] [place] [address] Care Team Providers Care Contract Officer Name Role Phone Nathan Hartman MD Primary Care Provider [phone] Source Comments In the event this information is protected by the Federal Confidentiality of Alcohol and Drug AbusePatient Records regulations: The Federal rules restrict any use of the information to criminally investigate or prosecute any alcohol or drug abuse patient.[facility] Encounter Details Date Type Department Care Team (Late st Contact Info) Description 06/17/2024 Patient Msg Neurology [address] [phone] Provider, [facility] A Message from [facility] Social History Tobacco Use Types Packs/Day Years Used Date Smoking Tobacco: Never Smokeless Tobacco: Never Alcohol Use Standard Drinks/Week Comments Never 0 (1 standard drink = 0.6 oz pur e alcohol) AUDIT-C Answer Date Recorded Q1: How often do you have a drink containing alc ohol? Never 03/27/2019 Average Number of Drinks Not on file 08/30/2 019 Frequency of Binge Drinking Not on file 02/28 PHQ-2 Answer Date Recorded PHQ-2 score 0 06/15/2024 Area Deprivation Index Answer Date Kit rded National Score (1-100), lower number is lower ri sk 89 12/05/2022 State Score (1-10), lower number is lower risk 8 12/05/2022 Data from: https://www.neighborhoodatlas.medicine.[facility].edu/. Last address used for calculation [address] 12/05/2022 Sex and Gender Information Value Date Recorded Sex Assigned at Male 03/30/2019 6:28 PM EDT Legal Sex Male 10:46 AM EDT Gender Identity Male 03/30/2019 6:28 PM EDT Sexual Orientation Not on file documented as of this encounter Plan of Treatment Upcoming Encounters Date Type Department Care Team (Late st Contact Info) Description 07/01/2025 2:30 PM EST Office Visit Neurology [address] [place] [address] Donald Alberts, DO [address] [place] [address] 6 month follow up documented as of this encounter Visit Diagnoses Not on filedocumented in this encounter Care Teams Contract Officer Relationship Specialty Start Date End Date Nathan Hartman MD [address] [place] [address] PCP - General Family Medicine 07/29/20 documented as of this encounter
--- OUTSIDE RECORDS SUMMARY | 2025-03-31 08:34 | XMS_ITS | Encounter Summary ---
Author Organization [facility] Address [address] [place] [address] Care Team Providers Care Store Sales Leader Name Role Phone Nathan Hartman MD Primary Care Provider [phone] Encounter Details Date Type Department Care Team (Late st Contact Info) Description 02/18/2024 Clinisync Result Encounter [facility] External Department Unsolicited Shaikh Harris MD [address] [place] [address] Social History Tobacco Use Types Packs/Day Years [...] often do you attend chur ch or jew services? Never 11/28/2023 Do you belong to any clubs o r organizations such as caodaism groups, unions, fraternal or athletic groups, or [...] Recorded Patient Health Questionnaire-2 Score 0 02/04/2024 [facility] ional [facility] - [...] place to sleep or slept in a correction (including now)? No 11/28/2023 Sex and Gender Information Value Date Recorded Sex Assigned at Not on file Legal Sex Male 8:32 PM EDT Gender Identity Not on file Sexual Orientation Not on file documented as of this encounter Plan of Treatment Upcoming Encounters Date Type Department Care Team (Late st Contact Info) Description 05/12/2025 1:15 PM EDT Procedure Visit [facility] [address] [place] [phone] Ky Santo DPM [address] [place], [place] [address] documented as of this encounter Procedures Procedure Name Priority Date/Time Associated Diagnosis Comments XR CHEST 2V 02/18/2024 6:30 AM EDT documented in this encounter Results * XR CHEST 2V (02/18/2024 6:30 AM EDT) Anatomical Region Laterality Modality Other 02/18/2024 6:30 AM EDT Narrative 02/18/2024 6:33 AM EDT The [address] [address] XRay Report Signed Patient: HERRERA MARTINEZ MR#: [id number] : 1945 Acct:[id number] Age/Sex: 78 / M ADM Date: 02/17/24 Loc: RAD Attending Dr: Shaikh Talat Bahena Ordering Physician: Shaikh Shruti Harris Date of Service: 02/17/24 Procedure(s): XR chest 2V Accession Number(s): [id number] cc: Shaikh Shruti Harris; Nathan Hartman M.D. The [place] [address] Patient Name: HERRERA MARTINEZ MRN: [id number] date: 1945 Sex: M Assigned Patient Location: [facility] Current Patient Location: Accession/Order Number: [id number] Exam Date: 02/17/2024 10:20 Report Date: 02/18/2024 06:30 At the request of: SHAIKH TALAT Procedure: XR chest 2V EXAMINATION: XR chest 2V HISTORY: Closed Fracture Of Body Of Sternum With Delayed Healing COMPARISON: CT chest 02/02/2024 FINDINGS: LUNGS: No significant pulmonary parenchymal abnormalities. VASCULATURE: No increased pulmonary vasculature. PLEURA: No pneumothorax, effusion, or pleural thickening. CARDIAC: No cardiomegaly or cardiac silhouette abnormality. MEDIASTINUM: No visible mass or adenopathy. BONES: No visible fracture or bone lesion. OTHER: Negative. XR/XR chest 2V IMPRESSION: 1. No acute cardiopulmonary process. 2. No appreciable fracture or suspicious offset of the sternum. Electronically authenticated by: KY PEREZ Date: 02/18/2024 06:30 Dictated By: Ky Perez M.D. Signed By: 02/18/2433 DD/ 9 TD/TT: Dock Manager: Procedure Note Radiology, Radiologist, - 02/18/2024 [place] [address] XRay Report Signed Patient: HERRERA MARTINEZ UMR#: [id number] : 1945cct:[id number] Age/Sex: 78 / MADM Date: 02/17/24 Loc: RAD Attending Dr: Shaikh Talat Bahena Ordering Physician: Shaikh Shruti Harris Date of Service: 02/17/24 Procedure(s): XR chest 2V Accession Number(s): [id number] cc: Shaikh Shruti Harris; Nathan Hartman M.D. [place] [id number] Patient Name: HERRERA MARTINEZ MRN: [id number] date: 1945 Sex: M Assigned Patient Location: [facility] Current Patient Location: Accession/Order Number: [id number] Exam Date: 02/17/2024 10:20 Report Date: 02/18/2024 06:30 At the request of: SHAIKH TALAT Procedure: XR chest 2V EXAMINATION: XR chest 2V HISTORY: Closed Fracture Of Body Of Sternum With Delayed Healing COMPARISON: CT chest 02/02/2024 FINDINGS: LUNGS: No significant pulmonary parenchymal abnormalities. VASCULATURE: No increased pulmonary vasculature. PLEURA: No pneumothorax, effusion, or pleural thickening. CARDIAC: No cardiomegaly or cardiac silhouette abnormality. MEDIASTINUM: No visible mass or adenopathy. BONES: No visible fracture or bone lesion. OTHER: Negative. XR/XR chest 2V IMPRESSION: 1. No acute cardiopulmonary process. 2. No appreciable fracture or suspicious offset of the sternum. Electronically authenticated by: KY PEREZ Date: 02/18/2024 06:30 Dictated By: Ky Perez M.D. Signed By:02/18/2433 DD/ 9 TD/TT: Dock Manager: Shaikh Talat [facility] Final Result documented in this encounter Visit Diagnoses Not on filedocumented in this encounter Care Teams Store Sales Leader Relationship Specialty Start Date End Date Nathan Hartman MD PCP - General Family Medicine 09/10/23 documented as of this encounter
--- OUTSIDE RECORDS SUMMARY | 2025-03-31 08:34 | XMS_ITS | Encounter Summary ---
Author Organization [facility] Address [address] [place] [address] Care Team Providers Care Java Sybase Developer Name Role Phone Nathan Hartman MD Primary Care Provider Source Comments In the event this information is protected by the Federal Confidentiality of Alcohol and Drug AbusePatient Records regulations: The Federal rules restrict any use of the information to criminally investigate or prosecute any alcohol or drug abuse patient.[facility] Encounter Details Date Type Department Care Team (Late st Contact Info) Description 01/15/2020 Patient Msg Neurology [address] [place] [address] Donald Alberts, DO [address] [place] [phone] Request an Appointment Social History Tobacco Use [...] 07/01/2025 2:30 PM EST Office Visit Neurology [address] [facility] [place] [address] Donald Alberts, DO [address] [place] [address] 6 month follow up documented as of this encounter Visit Diagnoses Not on filedocumented in this encounter Care Teams Java Sybase Developer Relationship Specialty Start Date End Date Nathan Hartman MD [address] [place] [address] PCP - General Family Medicine 07/29/20 documented as of this encounter
--- OUTSIDE RECORDS SUMMARY | 2025-03-31 08:34 | XMS_ITS | Encounter Summary ---
Author Organization [facility] Address [address] [place] [place] [address] Care Team Providers Care Packing Room Inspector Name Role Phone Nathan Bolton MD Primary Care Provider [phone] Encounter Details Date Type Department Care Team (Late st Contact Info) Description 09/13/2023 Clinisync Result Encounter [facility] External Department Unsolicited Nathan Bolton MD [address] [place] [address] Social History Tobacco Use Types Packs/Day Years [...] attend chur ch or yazidism services? Never 09/09/2023 Do you belong to any clubs o r organizations such as synagogue groups, unions, fraternal or athletic groups, or [...] and heating? Not hard at all 09/09/2023 [facility] Occupat ional Health - Occupational [...] place to sleep or slept in a jail (including now)? No 09/09/2023 Sex and Gender Information Value Date Recorded Sex Assigned at Not on file Legal Sex Male 8:32 PM EDT Gender Identity Not on file Sexual Orientation Not on file documented as of this encounter Plan of Treatment Upcoming Encounters Date Type Department Care Team (Late st Contact Info) Description 05/12/2025 1:15 PM EDT Procedure Visit [facility] [address] [place] [address] Ky Santo DPM [address] [place], [place] [phone] documented as of this encounter Procedures Procedure Name Priority Date/Time Associated Diagnosis Comments US RIGHT UPPER QUADRANT 09/13/2023 10:05 AM EST documented in this encounter Results * US RIGHT UPPER QUADRANT (09/13/2023 10:05 AM EST) Anatomical Region Laterality Modality Other 09/13/2023 10:0 5 AM EST Narrative 09/13/2023 10:08 AM EST The [address] [address] Ultrasound Report Signed Patient: HERRERA MARTINEZ MR#: [id number] : 1945 Acct:[id number] Age/Sex: 78 / M ADM Date: 09/13/23 Loc: US Attending Dr: Nathan Bolton M.D. Ordering Physician: Nathan Bolton M.D. Date of Service: 09/13/23 Procedure(s): US right upper quadrant Accession Number(s): [id number] cc: Nathan Bolton M.D. The [place] [address] Patient Name: HERRERA MARTINZE MRN: [id number] date: 1945 Sex: M Assigned Patient Location: US Current Patient Location: US Accession/Order Number: [id number] Exam Date: 09/13/2023 09:12 Report Date: 09/13/2023 10:05 At the request of: NATHAN BOLTON Procedure: US right upper quadrant EXAM: US right upper quadrant HISTORY: . epigastric abdominal pain R10.13 . COMPARISON: None. TECHNIQUE: Grayscale and color imaging was performed FINDINGS: The pancreas appears normal. Scanning of the liver demonstrates a liver to be normal in size. There is mild increased echogenicity of liver. Color-flow is noted in the portal and hepatic veins. Common bile duct measures 2 mm. The gallbladder appears normal with no stones or sludge identified. Right kidney measures 10.2 x 6.6 x 5.7 cm. There is a 7 mm nonobstructing calculus involving the midpole of the right kidney. No solid renal cortical masses or hydronephrosis is noted. No fluid is noted in the right upper quadrant. US/US right upper quadrant IMPRESSION: 1. Slight increased echogenicity of liver consistent with fatty infiltration of the liver. 2. 7 mm nonobstructing right renal calculus. No hydronephrosis. 3. The remainder the right upper quadrant was unremarkable. Electronically authenticated by: NANO HEATH Date: 09/13/2023 10:05 Dictated By: Nano Heath M.D. Signed By: 09/13/23 1008 DD/ 1005 TD/TT: Sole Painter: Procedure Note Radiology, Radiologist, - 09/13/2023 [place] [address] Ultrasound Report Signed Patient: HERRERA MARTINEZ UMR#: [id number] : 1945cct:[id number] Age/Sex: 78 / MADM Date: 09/13/23 Loc: US Attending Dr: Nathan Bolton M.D. Ordering Physician: Nathan Bolton M.D. Date of Service: 09/13/23 Procedure(s): US right upper quadrant Accession Number(s): [id number] cc: Nathan Bolton M.D. [place] [id number] Patient Name: HERRERA MARTINEZ MRN: [id number] date: 1945 Sex: M Assigned Patient Location: US Current Patient Location: US Accession/Order Number: [id number] Exam Date: 09/13/2023 09:12 Report Date: 09/13/2023 10:05 At the request of: NATHAN BOLTON Procedure: US right upper quadrant EXAM: US right upper quadrant HISTORY: . epigastric abdominal pain R10.13 . COMPARISON: None. TECHNIQUE: Grayscale and color imaging was performed FINDINGS: The pancreas appears normal. Scanning of the liver demonstrates a liver to be normal in size. There ismild increased echogenicity of liver. Color-flow is noted in the portal andhepatic veins. Common bile duct measures 2 mm. The gallbladder appears normal with no stones or sludge identified. Right kidney measures 10.2 x 6.6 x 5.7 cm. There is a 7 mm nonobstructing calculus involving the midpole of the right kidney. No solid renalcortical masses or hydronephrosis is noted. No fluid is noted in the right upper quadrant. US/US right upper quadrant IMPRESSION: 1. Slight increased echogenicity of liver consistent with fattyinfiltration of the liver. 2. 7 mm nonobstructing right renal calculus. No hydronephrosis. 3. The remainder the right upper quadrant was unremarkable. Electronically authenticated by: NANO HEATH Date: 09/13/2023 10:05 Dictated By: Nano Heath M.D. Signed By:09/13/23 1008 DD/ 1005 TD/TT: Sole Painter: Nathan Bolton MD [facility] Final Result documented in this encounter Visit Diagnoses Not on filedocumented in this encounter Care Teams Packing Room Inspector Relationship Specialty Start Date End Date Nathan Bolton MD PCP - General Family Medicine 09/10/23 documented as of this encounter
== END 2025-03-31 08:31 | disposition home or self-care (01) ==
LOC: MRI 08:30
PROVIDERS: Visit Provider Anesthesiology
DX: M48.062 Spinal stenosis, lumbar region with neurogenic claudication (principal); M48.02 Spinal stenosis, cervical region; M50.30 Other cervical disc degeneration, unspecified cervical region; M51.369 Other intervertebral disc degeneration, lumbar region without mention of lumbar back pain or lower extremity pain
CPT/HCPCS: 72141; 72148

== ENCOUNTER 2025-04-07 09:39 | Outpatient (OUT) | payer MEDICARE, SELFPAY ==
--- OUTSIDE RECORDS SUMMARY | 2025-04-07 09:42 | XMS_ITS | Clinical Summary ---
Author Organization [facility] Address [address] [place] [address] Phone Care Team Providers Care Threading Machine Tender Name Role Phone Unavailable Primary Care Provider [...]
--- OUTSIDE RECORDS SUMMARY | 2025-04-07 09:42 | XMS_ITS | Encounter Summary ---
Author Organization [facility] Address [address] [place] [address] Care Team Providers Care School Superintendent Name Role Phone Nathan Hartman MD Primary Care Provider [phone] Source Comments In the event this information is protected by the Federal Confidentiality of Alcohol and Drug AbusePatient Records regulations: The Federal rules restrict any use of the information to criminally investigate or prosecute any alcohol or drug abuse patient.[facility] Encounter Details Date Type Department Care Team (Late st Contact Info) Description 11/12/2024 Patient Msg Neurology [address] [place] [id number] Provider, [employer] Helps Us Understand Parkinson's [...] is lower risk 8 12/05/2022 Data from: https://www.neighborhoodatlas.medicine.[facility].edu/. Last address used for calculation [address] 12/05/2022 Sex and Gender Information Value Date Recorded Sex Assigned at Male 03/30/2019 6:28 PM EDT Legal Sex Male 10:46 AM EDT Gender Identity Male 03/30/2019 6:28 PM EDT Sexual Orientation Not on file documented as of this encounter Plan of Treatment Upcoming Encounters Date Type Department Care Team (Late st Contact Info) Description 07/01/2025 2:30 PM EST Office Visit Neurology [address] [place] [address] Donald Alberts, DO [address] [place] [address] 6 month follow up documented as of this encounter Visit Diagnoses Not on filedocumented in this encounter Care Teams School Superintendent Relationship Specialty Start Date End Date Nathan Hartman MD [address] [place] [address] PCP - General Family Medicine 07/29/20 documented as of this encounter
--- OUTSIDE RECORDS SUMMARY | 2025-04-07 09:42 | XMS_ITS | Clinical Summary ---
Author Organization [facility] Address [address] [place] [address] Care Team Providers Care Cisco Unified Communications Engineer Name Role Phone Nathan Hartman MD Primary Care Provider [phone] Allergies No known active allergies Medications carbidopa-levodopa (Parcopa) 25-100 MG disintegrating tablet Take 2 [...] split. Active omeprazole (PriLOSEC) [address] capsuleIndications :Epigastric abdominal pain TAKE 1 CAPSULE IN THE MORNING BEFORE A MEAL. DO NOT CRUSH OR CHEW 90 capsule 3 10/20/19 25 Active oxyCODONE-acetamin ophen (Percocet) 5-325 MG tablet every 4 (four) hours if needed for severe pain Active polyethylene glycol, PEG, 3350 (Miralax) 17 g packet Take 17 g by mouth Daily Active meloxicam (Mobic) 7.5 MG tabletIndications: DDD (degenerative disc disease), lumbar TAKE 1 TABLET DAILY 90 tablet 3 02/05/20 25 Active metFORMIN XR (Glucophage-XR) 500 MG 24 hr tabletIndications: Type 2 diabetes mellitus with hyperglycemia, without long-term current use of insulin ([facility]) TAKE 1 TABLET IN THE MORNING AND BEFORE BEDTIME.DO NOT CRUSH, CHEW OR SPLIT 180 tablet 3 02/05/20 25 Active simvastatin (Zocor) 40 MG tabletIndications: Dyslipidemia TAKE 1 TABLET AT BEDTIME 90 tablet 3 02/05/20 25 Active glipiZIDE (Glucotrol) 10 MG tabletIndications: Type 2 diabetes mellitus with hyperglycemia, without long-term current use of insulin ([facility]) Take 2 tablets (20 mg) by mouth in the morning and 2 tablets (20 mg) in the evening. Take before meals. 360 tablet 3 03/03/20 25 Active Januvia 100 MG tabletIndications: Type 2 diabetes mellitus with hyperglycemia, without long-term current use of insulin ([facility]) TAKE 1 TABLET BY MOUTH EVERY DAY 30 tablet 5 03/25/20 25 Active SITagliptin (Januvia) 100 MG tabletIndications: Type 2 diabetes mellitus with hyperglycemia, without long-term current use of insulin ([facility]) Take 1 tablet (100 mg) by mouth Daily 30 tablet 5 10/03/19 25 025 Discontinued Active Problems Problem Noted Date Diagnosed Date [...] Care Team Description 03/25/2025 Refill [facility] [address] [place] [address] Nathan Hartman MD Type 2 diabetes mellitus with hyperglycemia, without long-term current use of insulin (HCC) 03/03/2025 10:30 AM EDT Office Visit [facility] [address] [place] [address] Nathan Hartman MD Type 2 diabetes mellitus with hyperglycemia, without long-term current use of insulin (HCC) (Primary Dx); Essential hypertension, benign ; Parkinson disease, symptomatic (HCC); Degeneration of intervertebral disc of lumbar region with discogenic back pain; Dysphagia, unspecified type 03/03/2025 Abstract [facility] [address] [place] [address] Nathan Hartman MD 03/03/2025 Bamboo flowsheet [facility] [address] [place] [address] Nathan Hartman MD 02/26/2025 Travel 02/04/2025 Refill [facility] [address] [place] [address] Nathan Hartman MD DDD (degenerative disc disease), lumbar; Type 2 diabetes mellitus with hyperglycemia, without long-term current use of insulin ([facility]); Dyslipidemia 01/27/2025 1:15 PM EDT Procedure Visit [facility] Podiatry [address] [facility] [place] [address] Ky Santo DPM Dermatophytosis of nail (Primary Dx); Dystrophic nail; Pain around toenail, right foot; Pain around toenail, left foot 01/27/2025 Bamboo flowsheet [facility] Podiatry [address] [place] [address] Ky Santo DPM 01/27/2025 Travel 01/26/2025 Travel [...] wetzel Relation Name Status Comments Father Elvin Juan Sr Mother Aida wetzel Social History Tobacco [...] week 02/26/2025 How often do you attend [facility] or yazidism services? Never 02/26/2025 Do you belong to any clubs o r organizations such as shinto groups, unions, fraternal or athletic groups, or [...] 0 02/04/2024 [facility] - [facility] Stress Questionnaire Answer Date [...] in a detention (including now)? No 11/28/2023 Housing Stability Vital Sign Answer Brandt e Recorded In the last 12 months, was t here a time when you were not able to pay the mortgage or rent on time? No 02/26/2025 In the past 12 months, how m any times have you moved where you were living? 0 02/26/2025 At any time in the past 12 m [facility], were you homeless or living in a detention (including now)? No 02/26/2025 Sex and Gender [...] PM EDT Procedure Visit [facility] [address] [place] [address] Ky Santo DPM [address] [place], [place] [address] Health Maintenance Due Date Last Done Comments [...] EDT) Anatomical Region Laterality Modality Head Other [facility] OPHTH PHOTOGRAPHY Final Result * Hemoglobin A1c (06/24/2023 12:46 PM EST) Blood Venous blood specimen / Unknown Nathan Hartman MD LAB BLOOD ORDERABLES Final Resul t from Last 3 Months or Most Recently Relevant to Health Maintenance Insurance [employer] MEDICARE ADVANTAGE Care Teams Cisco Unified Communications Engineer Relationship Specialty Start Date End Date Nathan Hartman MD PCP - General Family Medicine 09/10/23
--- OUTSIDE RECORDS SUMMARY | 2025-04-07 09:42 | XMS_ITS | Encounter Summary ---
Author Organization [facility] Address [address] [place] [address] Care Team Providers Care Pickle Solution Maker Name Role Phone Natahn Hartman MD Primary Care Provider [phone] Encounter Details Date Type Department Care Team (Late st Contact Info) Description 09/24/2024 Orders Only [facility] [address] [place] [address] Nathan Hartman MD [address] [place] [address] Social History Tobacco Use Types Packs/Day Years [...] often do you attend chur ch or scientologist services? Never 11/28/2023 Do you belong to any clubs o r organizations such as adventism groups, unions, fraternal or athletic groups, or [...] Recorded Patient Health Questionnaire-2 Score 0 02/04/2024 [facility] Answer Date [...] EDT Procedure Visit [facility] [address] [place] [address] Ky Santo DPM [address] [place], [place] [address] documented as of this encounter Procedures Procedure Name Priority Date/Time Associated Diagnosis Comments ELECTROCARDIOGRAM REPORT Routine 025 8:40 AM EST documented in this encounter Results * Electrocardiogram Report (09/23/2024 8:40 AM EST) us Nathan Hartman MD IN CLINIC/BEDSIDE ORDERABLES Fin al Result documented in this encounter Visit Diagnoses Not on filedocumented in this encounter Care Teams Pickle Solution Maker Relationship Specialty Start Date End Date Nathan Hartman MD PCP - General Family Medicine 09/10/23 documented as of this encounter
--- OUTSIDE RECORDS SUMMARY | 2025-04-07 09:42 | XMS_ITS | Clinical Summary ---
Author Organization [facility] Address [address] [place] [address] Care Team Providers Care Corrosion Engineer Name Role Phone Nathan Hartman MD Primary Care Provider [phone] Allergies No known active allergies Medications ONETOUCH [...] Description 02/18/2025 Patient Msg Neurology [address] [place] [address] Provider, [facility]cf Am I an [place] Candidate for New Therapies in Parkinson's Disease? [...] is lower risk 8 12/05/2022 Data from: https://www.neighborhoodatlas.medicine.[facility].edu/. Last address used for calculation [address] 12/05/2022 Sex and Gender Information [...] 07/01/2025 2:30 PM EST Office Visit Neurology [address] [place] [address] Donald Alberts, DO [address] [place] [address] 6 month follow up Health Maintenance Due [...] Completed 05/13/2023 Insurance [employer] MEDICARE Care Teams Corrosion Engineer Relationship Specialty Start Date End Date Nathan Hartman MD [address] [place] [address] PCP - General Family Medicine 07/29/20
--- OUTSIDE RECORDS SUMMARY | 2025-04-07 09:42 | XMS_ITS | Encounter Summary ---
Author Organization [facility] Address [address] [place] [address] Care Team Providers Care Nursing Home Administrator Name Role Phone Nathan Hartman MD Primary Care Provider [phone] Encounter Details Date Type Department Care Team (Late st Contact Info) Description 11/09/2024 Results Follow-Up [facility] [address] [place] [address] Sofy Bo MA MLR HEMOGLOBIN A1C Social [...] often do you attend chur ch or lutheran services? Never 11/28/2023 Do you belong to [...] Recorded Patient Health Questionnaire-2 Score 0 02/04/2024 [facility] - [facility]ational Stress Questionnaire Answer Date [...] in a group home (including now)? No 11/28/2023 Sex and Gender Information Value Date Recorded Sex Assigned at Not on file Legal Sex Male 8:32 PM EDT Gender Identity Not on file Sexual Orientation Not on file documented as of this encounter Plan of Treatment Upcoming Encounters Date Type Department Care Team (Late st Contact Info) Description 05/12/2025 1:15 PM EDT Procedure Visit [facility] [address] [place] [address] Ky Santo DPM [address] [place], [place] [phone] documented as of this encounter Visit Diagnoses Not on filedocumented in this encounter Care Teams Nursing Home Administrator Relationship Specialty Start Date End Date Nathan Hartman MD PCP - General Family Medicine 09/10/23 documented as of this encounter
--- OUTSIDE RECORDS SUMMARY | 2025-04-07 09:42 | XMS_ITS | Encounter Summary ---
Author Organization [facility] Address [address] [place] [address] Care Team Providers Care Business Information Manager Name Role Phone Nathan Hartman MD Primary Care Provider [phone] Encounter Details Date Type Department Care Team (Late st Contact Info) Description 03/03/2025 Abstract [facility] [address] [place] [address] Nathan Hartman MD [address] [place] [address] Social History Tobacco Use Types Packs/Day Years [...] How often do you attend chur or samaritan services? Never 02/26/2025 Do you belong to any clubs o r organizations such as sikhism groups, unions, fraternal or athletic groups, or [...] Recorded Patient Health Questionnaire-2 Score 0 02/04/2024 [facility] - Occupational [...] place to sleep or slept in a nursing home (including now)? No 11/28/2023 Housing Stability [...] were you homeless or living in a nursing home (including now)? No 02/26/2025 Sex and [...] Procedure Visit [facility] [address] [place] [phone] Ky Santo DPM [address] [place] [address] documented as of this encounter Visit Diagnoses Not on filedocumented in this encounter Care Teams Business Information Manager Relationship Specialty Start Date End Date Nathan Hartman MD PCP - General Family Medicine 09/10/23 documented as of this encounter
--- OUTSIDE RECORDS SUMMARY | 2025-04-07 09:42 | XMS_ITS | Encounter Summary ---
Author Organization [facility] Address [address] [place] [address] Care Team Providers Care Ornamental Ironworker Helper Name Role Phone Nathan Hartman MD Primary Care Provider [phone] Source Comments In the event this information is protected by the Federal Confidentiality of Alcohol and Drug AbusePatient Records regulations: The Federal rules restrict any use of the information to criminally investigate or prosecute any alcohol or drug abuse patient.[facility] Encounter Details Date Type Department Care Team (Late st Contact Info) Description 09/06/2021 Patient Msg Neurology [address] [place], [place] [id number] Provider, Eleuterio SIX MONTH FOLLOW UP APPOINTMENT [...] N ot on file 07/05/2020 Data from: https://www.neighborhoodatlas.medicine.[facility].edu/. Last address used for calculation Not [...] 07/01/2025 2:30 PM EST Office Visit Neurology [address] [place] [address] Donald Chou, DO [address] [place] [address] 6 month follow up documented as of this encounter Visit Diagnoses Not on filedocumented in this encounter Care Teams Ornamental Ironworker Helper Relationship Specialty Start Date End Date Nathan Hartman MD [address] [place] [address] PCP - General Family Medicine 07/29/20 documented as of this encounter
--- OUTSIDE RECORDS SUMMARY | 2025-04-07 09:42 | XMS_ITS | Encounter Summary ---
Author Organization [facility] Address [address] [place] [address] Care Team Providers Care Credit Card Interviewer Name Role Phone Nathan Hartman MD Primary Care Provider [phone] Source Comments In the event this information is protected by the Federal Confidentiality of Alcohol and Drug AbusePatient Records regulations: The Federal rules restrict any use of the information to criminally investigate or prosecute any alcohol or drug abuse patient.[facility] Encounter Details Date Type Department Care Team (Late st Contact Info) Description 09/08/2024 Patient Msg Neurology [address] [place] [id number] Provider, Eleuterio A Message from [facility] Social History Tobacco [...] is lower risk 8 12/05/2022 Data from: https://www.neighborhoodatlas.medicine.[facility].edu/. Last address used for calculation [address] [facility] 12/05/2022 Sex and Gender Information Value Date Recorded Sex Assigned at Male 03/30/2019 6:28 PM EDT Legal Sex Male 10:46 AM EDT Gender Identity Male 03/30/2019 6:28 PM EDT Sexual Orientation Not on file documented as of this encounter Plan of Treatment Upcoming Encounters Date Type Department Care Team (Late st Contact Info) Description 07/01/2025 2:30 PM EST Office Visit Neurology [address] [place] [address] Donald Alberts, DO [address] [place] [address] 6 month follow up documented as of this encounter Visit Diagnoses Not on filedocumented in this encounter Care Teams Credit Card Interviewer Relationship Specialty Start Date End Date Nathan Hartman MD [address] [place] [address] PCP - General Family Medicine 07/29/20 documented as of this encounter
--- OUTSIDE RECORDS SUMMARY | 2025-04-07 09:42 | XMS_ITS | Encounter Summary ---
Author Organization [facility] Address [address] [place] [address] Care Team Providers Care Assistant Boys Track Coach Name Role Phone Nathan Hartman MD Primary Care Provider [phone] Encounter Details Date Type Department Care Team (Late st Contact Info) Description 11/05/2024 Orders Only [facility] [address] [place] [address] Nathan Hartman MD [address] [place] [address] Social History Tobacco Use Types Packs/Day Years [...] often do you attend chur ch or zoroastrian services? Never 11/28/2023 Do you belong to any clubs o r organizations such as sabianism groups, unions, fraternal or athletic groups, or [...] Recorded Patient Health Questionnaire-2 Score 0 02/04/2024 [facility] Questionnaire Answer Date Recorded [...] place to sleep or slept in a retirement (including now)? No 11/28/2023 Sex and Gender Information Value Date Recorded Sex Assigned at Not on file Legal Sex Male 8:32 PM EDT Gender Identity Not on file Sexual Orientation Not on file documented as of this encounter Plan of Treatment Upcoming Encounters Date Type Department Care Team (Late st Contact Info) Description 05/12/2025 1:15 PM EDT Procedure Visit [facility] [address] [place] [address] yK Santo DPM [address] [place], [place] [address] documented as of this encounter Visit Diagnoses Not on filedocumented in this encounter Care Teams Assistant Boys Track Coach Relationship Specialty Start Date End Date Nathan Hartman MD PCP - General Family Medicine 09/10/23 documented as of this encounter
--- OUTSIDE RECORDS SUMMARY | 2025-04-07 09:42 | XMS_ITS | Encounter Summary ---
Author Organization [facility] Address [address] [place] [address] Care Team Providers Care Instructor Industrial Design Name Role Phone Nathan Hartman MD Primary Care Provider [phone] Source Comments In the event this information is protected by the Federal Confidentiality of Alcohol and Drug AbusePatient Records regulations: The Federal rules restrict any use of the information to criminally investigate or prosecute any alcohol or drug abuse patient.[facility] Encounter Details Date Type Department Care Team (Late st Contact Info) Description 12/22/2021 Patient Msg Neurology [address] [place], [place] [phone] Provider, Ccf Appointment Canceled Social History Tobacco [...] N ot on file 07/05/2020 Data from: https://www.neighborhoodatlas.medicine.[facility].edu/. Last address used for calculation [...] 07/01/2025 2:30 PM EST Office Visit Neurology [address] [place] [address] Donald Alberts, DO [address] [place] [address] 6 month follow up documented as of this encounter Visit Diagnoses Not on filedocumented in this encounter Care Teams Instructor Industrial Design Relationship Specialty Start Date End Date Nathan Hartman MD [address] [place] [address] PCP - General Family Medicine 07/29/20 documented as of this encounter
--- OUTSIDE RECORDS SUMMARY | 2025-04-07 09:42 | XMS_ITS | Encounter Summary ---
Author Organization [facility] Address [address] [place] [address] Care Team Providers Care Architecture Analyst Name Role Phone Nathan Hartman MD Primary Care Provider [phone] Encounter Details Date Type Department Care Team (Late st Contact Info) Description 11/04/2024 Orders Only [facility] [address] [facility] [place] [address] Jamshid, Darlene, OD [address] [place], [place] [id number] Social History Tobacco Use Types Packs/Day Years [...] often do you attend chur ch or zoroastrianism services? Never 11/28/2023 Do you belong to [...] Recorded Patient Health Questionnaire-2 Score 0 02/04/2024 [facility] Questionnaire Answer Date [...] place to sleep or slept in a mcc (including now)? No 11/28/2023 Sex and Gender Information Value Date Recorded Sex Assigned at Not on file Legal Sex Male 8:32 PM EDT Gender Identity Not on file Sexual Orientation Not on file documented as of this encounter Plan of Treatment Upcoming Encounters Date Type Department Care Team (Late st Contact Info) Description 05/12/2025 1:15 PM EDT Procedure Visit [facility] [address] [place] [address] Ky Santo DPM [address] [place] [address] documented as of this encounter Procedures Procedure Name Priority Date/Time Associated Diagnosis Comments DIABETIC RETINOPATHY SCREENING - OU - BOTH EYES Routine 11/04/2024 11:55 AM EDT documented in this encounter Results * Diabetic Retinopathy Screening - OU - Both Eyes (11/04/2024 11:55 AM EDT) Anatomical Region Laterality Modality Head Other us Adrlene Jamshid OD OPHTH PHOTOGRAPHY Final Result documented in this encounter Visit Diagnoses Not on filedocumented in this encounter Care Teams Architecture Analyst Relationship Specialty Start Date End Date Nathan Hartman MD PCP - General Family Medicine 09/10/23 documented as of this encounter
--- OUTSIDE RECORDS SUMMARY | 2025-04-07 09:42 | XMS_ITS | Encounter Summary ---
Author Organization [facility] Address [address] [place] [place] [address] Care Team Providers Care Formal Waiter/Waitress Name Role Phone Nathan Hartman MD Primary Care Provider [phone] Reason for Visit * Reason Comments Med Refill Encounter Details Date Type Department Care Team (Late st Contact Info) Description 03/25/2025 [facility] [address] [place] [address] Nathan Hartman MD [address] [place] [address] Type 2 diabetes mellitus with hyperglycemia, without [...] How often do you attend chur or faith services? Never 02/26/2025 Do you belong to any clubs o r organizations such as islam groups, unions, fraternal or athletic groups, or [...] Recorded Patient Health Questionnaire-2 Score 0 02/04/2024 [facility] Occupat ional Health - Occupational Stress [...] in a retirement (including now)? No 11/28/2023 Housing Stability Vital Sign Answer Brandt e Recorded In the last 12 months, was t here a time when you were not able to pay the mortgage or rent on time? No 02/26/2025 In the past 12 months, how m any times have you moved where you were living? 0 02/26/2025 At any time in the past 12 m [facility], were you homeless or living in a retirement (including now)? No 02/26/2025 Sex and Gender [...] Procedure Visit [facility] [address] [place] [address] Ky Santo DPM [address] [place] [address] documented as of this encounter Visit Diagnoses Diagnosis Type 2 diabetes mellitus with hyperglycemia, without long-term current use of insulin (HCC) documented in this encounter Care Teams Formal Waiter/Waitress Relationship Specialty Start Date End Date Nathan Hartman MD PCP - General Family Medicine 09/10/23 documented as of this encounter
--- OUTSIDE RECORDS SUMMARY | 2025-04-07 09:43 | XMS_ITS | Encounter Summary ---
Author Organization [facility] Address [address] [place] [address] Care Team Providers Care Senior Analytic Consultant Name Role Phone Nathan Hartman MD Primary Care Provider [phone] Encounter Details Date Type Department Care Team (Late st Contact Info) Description 09/15/2024 Orders Only [facility] [address] [place] [address] Unallocated, Noms Provider, [address] [place], [place] [address] Social History Tobacco Use Types Packs/Day Years [...] often do you attend chur ch or moravian services? Never 11/28/2023 Do you belong to any clubs o r organizations such as yazidism groups, unions, fraternal or athletic groups, or [...] Recorded Patient Health Questionnaire-2 Score 0 02/04/2024 [facility] Questionnaire Answer Date [...] EDT Procedure Visit [facility] [address] [place] [address] Ky Snato DPM [address] [place] [address] documented as of this encounter Procedures Procedure [...] on filedocumented in this encounter Care Teams Senior Analytic Consultant Relationship Specialty Start Date End Date Nathan Hartman MD PCP - General Family Medicine 09/10/23 documented as of this encounter
--- OUTSIDE RECORDS SUMMARY | 2025-04-07 09:43 | XMS_ITS | Encounter Summary ---
Author Organization [facility] Address [address] [place] [address] Care Team Providers Care Leaded Glass Installer Name Role Phone Nathan Hartman MD Primary Care Provider [phone] Source Comments In the event this information is protected by the Federal Confidentiality of Alcohol and Drug AbusePatient Records regulations: The Federal rules restrict any use of the information to criminally investigate or prosecute any alcohol or drug abuse patient.[facility] Encounter Details Date Type Department Care Team (Late st Contact Info) Description 01/15/2020 Patient Msg Neurology [address] [place] [address] Donald Alberts, DO [address] [phone] Request an Appointment Social History Tobacco Use [...] 07/01/2025 2:30 PM EST Office Visit Neurology [address] [facility] [place] [address] Donald Alberts, DO [address] [place] [address] 6 month follow up documented as of this encounter Visit Diagnoses Not on filedocumented in this encounter Care Teams Leaded Glass Installer Relationship Specialty Start Date End Date Nathan Hartman MD [address] [place] [address] PCP - General Family Medicine 07/29/20 documented as of this encounter
--- OUTSIDE RECORDS SUMMARY | 2025-04-07 09:43 | XMS_ITS | Encounter Summary ---
Author Organization [facility] Address [address] [place] [address] Care Team Providers Care Wood Block Artist Name Role Phone Nathan Hartman MD Primary Care Provider Encounter Details Date Type Department Care Team (Late st Contact Info) Description 09/03/2024 Orders Only [facility] [address] [place] [address] Sheridan Frias MD [address] [place] [address] Social History Tobacco Use Types [...] often do you attend chur ch or yazidi services? Never 11/28/2023 Do you belong to any clubs o r organizations such as catholic groups, unions, fraternal or athletic groups, or [...] Recorded Patient Health Questionnaire-2 Score 0 02/04/2024 [facility] Occupat ional [facility] - Occupational Stress Questionnaire Answer Date Recorded [...] a long term (including now)? No 11/28/2023 Sex and Gender Information Value Date Recorded Sex Assigned at Not on file Legal Sex Male 8:32 PM EDT Gender Identity Not on file Sexual Orientation Not on file documented as of this encounter Plan of Treatment Upcoming Encounters Date Type Department Care Team (Late st Contact Info) Description 05/12/2025 1:15 PM EDT Procedure Visit [facility] [address] [place] [address] Ky Santo DPM [address] [place], [place] [address] documented as of this encounter Procedures Procedure [...] on filedocumented in this encounter Care Teams Wood Block Artist Relationship Specialty Start Date End Date Nathan Hartman MD PCP - General Family Medicine 09/10/23 documented as of this encounter
--- OUTSIDE RECORDS SUMMARY | 2025-04-07 09:43 | XMS_ITS | Encounter Summary ---
Author Organization [facility] Address [address] [place] [address] Care Team Providers Care Clam Shovel Operator Name Role Phone Nathan Hartman MD Primary Care Provider [phone] Nathan Hartman MD Primary Care Provider [phone] Encounter Details Date Type Department Care Team (Late st Contact Info) Description 09/02/2023 Orders Only [facility] [address] [place] [address] Nathan Hartman MD [address] [place] [address] Social History Tobacco Use Types Packs/Day Years [...] Procedure Visit [facility] [address] [place] [address] Ky Santo, MARK [address] [place] [address] documented as of this encounter Procedures Procedure Name Priority Date/Time Associated Diagnosis Comments HEMOGLOBIN A1C Routine 06/24/2023 12:46 PM EST documented in this encounter Results * Hemoglobin A1c (06/24/2023 12:46 PM EST) Blood Venous blood specimen / Unknown Nathan Hartman MD LAB BLOOD ORDERABLES Final Resul t documented in this encounter Visit Diagnoses Not on filedocumented in this encounter Care Teams Clam Shovel Operator Relationship Specialty Start Date End Date Nathan Hartman MD PCP - General Family Medicine 05/08/23 09/09/23 Nathan Hartman MD PCP - General Family Medicine 09/10/23 documented as of this encounter
--- OUTSIDE RECORDS SUMMARY | 2025-04-07 09:43 | XMS_ITS | Encounter Summary ---
Author Organization [facility] Address [address] [place] [address] Care Team Providers Care Digital Court Reporter Name Role Phone Nathan Hartman MD Primary Care Provider [phone] Encounter Details Date Type Department Care Team (Late st Contact Info) Description 02/19/2024 Orders Only [facility] [address] [place] [address] Shaikh Harris MD [address] [place] [address] Social History Tobacco Use Types Packs/Day Years [...] often do you attend chur ch or jain services? Never 11/28/2023 Do you belong to any clubs o r organizations such as baptism groups, unions, fraternal or athletic groups, or [...] Recorded Patient Health Questionnaire-2 Score 0 02/04/2024 [facility] Occupat ional [facility] - Occupational Stress Questionnaire Answer Date [...] place to sleep or slept in a alf (including now)? No 11/28/2023 Sex and Gender Information Value Date Recorded Sex Assigned at Not on file Legal Sex Male 8:32 PM EDT Gender Identity Not on file Sexual Orientation Not on file documented as of this encounter Plan of Treatment Upcoming Encounters Date Type Department Care Team (Late st Contact Info) Description 05/12/2025 1:15 PM EDT Procedure Visit [facility] [address] [place] [address] Ky Santo DPM [address] [place], [place] [address] documented as of this encounter Procedures Procedure [...] on filedocumented in this encounter Care Teams Digital Court Reporter Relationship Specialty Start Date End Date Nathan Hartman MD PCP - General Family Medicine 09/10/23 documented as of this encounter
--- OUTSIDE RECORDS SUMMARY | 2025-04-07 09:43 | XMS_ITS | Clinical Summary ---
Author Organization [email or web address] Address [id number] [address] [place] [address] Care Team Providers Care Wood Pile Driver Operator Name Role Phone Nathan Hartman MD Primary Care Provider [phone] Allergies No known active allergies Medications aspirin [...] mouth nightly Indications: high cholesterol. 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 [...] biopsy--47 CC prostate January 2019 left apex MDOE. PSA is been above 4. Most recent [...] Contact Info) Description 06/02/2025 1:15 PM EST Telemedicine [facility] [address] [place] [address] [place] [address] [place] [address] Reagan Shafer MD [address] [place] [address] Health Maintenance Due Date Last Done Comments Depression Screening 1958 Fall Risk Screening 2011 COVID-19 Vaccine (2023-2 5 season) 2025 05/20/2024, 04/22/2023, 04/26/2022, Additional history exists Influenza Vaccine 03/29/2025 05/20/2024, , 04/23/2022, Additional history exists Tobacco Screening 05/25/2025 05/25/2024 DTaP,Tdap and Td Vaccines (2 - Td or Tdap) 05/27/2027 05/27/2017 Zoster (Shingles) Vaccine Completed 11/20/2018, Medical Devices [place] [address] [employer] MEDICARE Advance Directives Documents on File Type Date Recorded Patient Boiler Room Helper Expl anation Living Will 06/20/2021 9:38 AM Durable Power of Gis Specialist 06/20/2021 9:37 AM Care Teams Wood Pile Driver Operator Relationship Specialty Start Date End Date Nathan Hartman MD PCP - General Family Medicine 11/09/20
--- OUTSIDE RECORDS SUMMARY | 2025-04-07 09:43 | XMS_ITS | Encounter Summary ---
Author Organization [facility] Address [address] [place] [address] Care Team Providers Care Inspector Machine Cut Glass Name Role Phone Nathan Hartman MD Primary Care Provider [phone] Source Comments In the event this information is protected by the Federal Confidentiality of Alcohol and Drug AbusePatient Records regulations: The Federal rules restrict any use of the information to criminally investigate or prosecute any alcohol or drug abuse patient.[facility] Encounter Details Date Type Department Care Team (Late st Contact Info) Description 02/18/2025 Patient Msg Neurology [address] [phone] Provider, Eleuterio Am I an [place] Candidate for New Therapies in Parkinson's Disease? [...] is lower risk 8 12/05/2022 Data from: https://www.neighborhoodatlas.medicine.[facility].edu/. Last address used for calculation [address] [facility] 12/05/2022 Sex and Gender Information Value Date Recorded Sex Assigned at Male 03/30/2019 6:28 PM EDT Legal Sex Male 10:46 AM EDT Gender Identity Male 03/30/2019 6:28 PM EDT Sexual Orientation Not on file documented as of this encounter Plan of Treatment Upcoming Encounters Date Type Department Care Team (Late st Contact Info) Description 07/01/2025 2:30 PM EST Office Visit Neurology [address] [place] [address] Donald Alberts, DO [address] [place] [address] 6 month follow up documented as of this encounter Visit Diagnoses Not on filedocumented in this encounter Care Teams Inspector Machine Cut Glass Relationship Specialty Start Date End Date Nathan Hartman MD [address] [place] [address] PCP - General Family Medicine 07/29/20 documented as of this encounter
--- OUTSIDE RECORDS SUMMARY | 2025-04-07 09:43 | XMS_ITS | Encounter Summary ---
Author Organization [facility] Address [address] [place] [address] Care Team Providers Care Transmission Worker Name Role Phone Nathan Hartman MD Primary Care Provider [phone] Encounter Details Date Type Department Care Team (Late st Contact Info) Description 02/18/2024 Clinisync Result Encounter [facility] External Department Unsolicited Shaikh Harris MD [address] [place] [address] Social History Tobacco Use Types Packs/Day Years [...] often do you attend chur ch or mandaen services? Never 11/28/2023 Do you belong to any clubs o r organizations such as judaism groups, unions, fraternal or athletic groups, or [...] Recorded Patient Health Questionnaire-2 Score 0 02/04/2024 [facility] - Occupational [...] EDT Procedure Visit [facility] [address] [place] [id number] Ky Santo DPM [address] [place], [place] [id number] documented as of this encounter Procedures Procedure Name Priority Date/Time Associated Diagnosis Comments XR CHEST 2V 02/18/2024 6:30 AM EDT documented in this encounter Results * XR CHEST 2V (02/18/2024 6:30 AM EDT) Anatomical Region Laterality Modality Other 02/18/2024 6:30 AM EDT Narrative 02/18/2024 6:33 AM EDT The [address] [address] XRay Report Signed Patient: HERRERA MARTINEZ MR#: [id number] : 1945 Acct:[id number] Age/Sex: 78 / M ADM Date: 02/17/24 Loc: RAD Attending Dr: Shaikh Talat Bahena Ordering Physician: Shaikh Shruti Harris Date of Service: 02/17/24 Procedure(s): XR chest 2V Accession Number(s): [id number] cc: Shaikh Shruti Harris; Nathan Hartman M.D. The [place] [address] Patient Name: HERRERA MARTINEZ MRN: [id number] date: 1945 Sex: M Assigned Patient Location: [facility] Current Patient Location: Accession/Order Number: [id number] Exam Date: 02/17/2024 10:20 Report Date: 02/18/2024 [...] M.D. Signed By: 02/18/2433 DD/ 9 TD/TT: Director Ambulatory: Procedure Note Radiology, Radiologist, - 02/18/2024 [place] [address] XRay Report Signed Patient: HERRERA MARTINEZ UMR#: [id number] : 1945cct:[id number] Age/Sex: 78 / MADM Date: 02/17/24 Loc: RAD Attending Dr: Shaikh Talat Bahena Ordering Physician: Shaikh Shruti Harris Date of Service: 02/17/24 Procedure(s): XR chest 2V Accession Number(s): [id number] cc: Shaikh Shruti Harris; Nathan Hartman M.D. [place] [id number] Patient Name: HERRERA MARTINEZ MRN: [id number] date: 1945 Sex: M Assigned Patient Location: [facility] Current Patient Location: Accession/Order Number: [id number] Exam Date: 02/17/2024 10:20 Report Date: 02/18/2024 [...] Perez M.D. Signed By:02/18/2433 DD/ 9 TD/TT: Director Ambulatory: Shaikh Talat [facility] Final Result documented in this encounter Visit Diagnoses Not on filedocumented in this encounter Care Teams Transmission Worker Relationship Specialty Start Date End Date Nathan Hartman MD PCP - General Family Medicine 09/10/23 documented as of this encounter
--- OUTSIDE RECORDS SUMMARY | 2025-04-07 09:43 | XMS_ITS | Encounter Summary ---
Author Organization [facility] Address [address] [place] [address] Care Team Providers Care Technology Consultant Name Role Phone Nathan Hartman MD Primary Care Provider [phone] Source Comments In the event this information is protected by the Federal Confidentiality of Alcohol and Drug AbusePatient Records regulations: The Federal rules restrict any use of the information to criminally investigate or prosecute any alcohol or drug abuse patient.[facility] Encounter Details Date Type Department Care Team (Late st Contact Info) Description 01/12/2020 Patient Msg Neurology [address] [place] [address] Donald Alberts, DO [address] [place] [address] RE: Request an Appointment Social [...] 07/01/2025 2:30 PM EST Office Visit Neurology [address] [place] [address] Donald Alberts, DO [address] [place] [address] 6 month follow up documented as of this encounter Visit Diagnoses Not on filedocumented in this encounter Care Teams Technology Consultant Relationship Specialty Start Date End Date Natahn Hartman MD [address] [place] [address] PCP - General Family Medicine 07/29/20 documented as of this encounter
--- OUTSIDE RECORDS SUMMARY | 2025-04-07 09:43 | XMS_ITS | Encounter Summary ---
Author Organization [facility] Address [address] [place] [address] Care Team Providers Care Metal Bonding Assembler Name Role Phone Nathan Hartman MD Primary Care Provider [phone] Source Comments In the event this information is protected by the Federal Confidentiality of Alcohol and Drug AbusePatient Records regulations: The Federal rules restrict any use of the information to criminally investigate or prosecute any alcohol or drug abuse patient.[facility] Encounter Details Date Type Department Care Team (Late st Contact Info) Description 06/17/2024 Patient Msg Neurology [address] [place] [id number] Provider, Ccf A Message from [facility] Social History Tobacco Use Types Packs/Day Years [...] is lower risk 8 12/05/2022 Data from: https://www.neighborhoodatlas.medicine.[facility].edu/. Last address used for calculation [address] 12/05/2022 Sex and [...] 07/01/2025 2:30 PM EST Office Visit Neurology [address] [place] [address] Donald Alberts, DO [address] [place] [address] 6 month follow up documented as of this encounter Visit Diagnoses Not on filedocumented in this encounter Care Teams Metal Bonding Assembler Relationship Specialty Start Date End Date Nathan Hartman MD [address] [place] [address] PCP - General Family Medicine 07/29/20 documented as of this encounter
--- OUTSIDE RECORDS SUMMARY | 2025-04-07 09:43 | XMS_ITS | Encounter Summary ---
Author Organization [facility] Address [address] [place] [address] Care Team Providers Care Electrical Troubleshooter Name Role Phone Nathan Hartman MD Primary Care Provider [phone] Source Comments In the event this information is protected by the Federal Confidentiality of Alcohol and Drug AbusePatient Records regulations: The Federal rules restrict any use of the information to criminally investigate or prosecute any alcohol or drug abuse patient.[facility] Encounter Details Date Type Department Care Team (Late st Contact Info) Description 07/01/2019 Patient Msg Neurology [address] [place] [address] Donald Alberts, DO [address] [place] [address] Appointment Request Social History Tobacco [...] 07/01/2025 2:30 PM EST Office Visit Neurology [address] [place] [address] Donald Alberts, DO [address] [place] [address] 6 month follow up documented as of this encounter Visit Diagnoses Not on filedocumented in this encounter Care Teams Electrical Troubleshooter Relationship Specialty Start Date End Date Nathan Hartman MD [address] [place] [address] PCP - General Family Medicine 07/29/20 documented as of this encounter
--- OUTSIDE RECORDS SUMMARY | 2025-04-07 09:43 | XMS_ITS | Encounter Summary ---
Author Organization [facility] Address [address] [place] [address] Care Team Providers Care Backend Tester Name Role Phone Nathan Bolton MD Primary Care Provider [phone] Encounter Details Date Type Department Care Team (Late st Contact Info) Description 09/13/2023 Clinisync Result Encounter [facility] External Department Unsolicited Nathan Bolton MD [address] [place] [address] Social History Tobacco Use Types Packs/Day Years [...] often do you attend chur ch or orthodox services? Never 09/09/2023 Do you belong to [...] and heating? Not hard at all 09/09/2023 [facility] - [...] place to sleep or slept in a intermediate (including now)? No 09/09/2023 Sex and Gender Information Value Date Recorded Sex Assigned at Not on file Legal Sex Male 8:32 PM EDT Gender Identity Not on file Sexual Orientation Not on file documented as of this encounter Plan of Treatment Upcoming Encounters Date Type Department Care Team (Late st Contact Info) Description 05/12/2025 1:15 PM EDT Procedure Visit [facility] [address] [place] [phone] Ky Santo DPM [address] [place], [place] [phone] documented as of this encounter Procedures Procedure Name Priority Date/Time Associated Diagnosis Comments FL UPPER GI W AIR* 09/13/2023 11 :01 AM EST documented in this encounter Results * FL UPPER GI W AIR* (09/13/2023 11:01 AM EST) Anatomical Region Laterality Modality Radiographic Cynthia ging 09/13/2023 11:0 1 AM EST Narrative 09/13/2023 11:04 AM EST The [address] [address] Fluoroscopy Report Signed Patient: HERRERA MARTINEZ MR#: [id number] : 1945 Acct:[id number] Age/Sex: 78 / M ADM Date: 09/13/23 Loc: US Attending Dr: Nathan Naderer M.D. Ordering Physician: Nathan Bolton M.D. Date of Service: 09/13/23 Procedure(s): FL upper GI w air Accession Number(s): [id number] cc: Nathan Bolton M.D. The [place] [address] Patient Name: HERRERA MARTINEZ MRN: [id number] date: 1945 Sex: M Assigned Patient Location: US Current Patient Location: US Accession/Order Number: [id number] Exam Date: 09/13/2023 09:45 Report Date: 09/13/2023 [...] Signed By: 09/13/23 1104 DD/ 1101 TD/TT: Blogs Manager: Procedure Note Radiology, Radiologist, MD - 09/13/2023 [place] [address] Fluoroscopy Report Signed Patient: HERRERA MARTINEZ UMR#: [id number] : 1945cct:[id number] Age/Sex: 78 / MADM Date: 09/13/23 Loc: US Attending Dr: Nathan Bolton M.D. Ordering Physician: Nathan Bolton M.D. Date of Service: 09/13/23 Procedure(s): FL upper GI w air Accession Number(s): [id number] cc: Nathan Bolton M.D. The [address] [address] Patient Name: HERRERA MARTINEZ MRN: [id number] date: 1945 Sex: M Assigned Patient Location: US Current Patient Location: US Accession/Order Number: [id number] Exam Date: 09/13/2023 09:45 Report Date: 09/13/2023 [...] M.D. Signed By:09/13/23 1104 DD/ 1101 TD/TT: Blogs Manager: Nathan Bolton MD IMG XR PROCEDURES Final Result documented in this encounter Visit Diagnoses Not on filedocumented in this encounter Care Teams Backend Tester Relationship Specialty Start Date End Date Nathan Bolton MD PCP - General Family Medicine 09/10/23 documented as of this encounter
--- OUTSIDE RECORDS SUMMARY | 2025-04-07 09:43 | XMS_ITS | Encounter Summary ---
Author Organization [facility] Address [address] [place] [address] Care Team Providers Care Blood Bank Booking Clerk Name Role Phone Nathan Hartman MD Primary Care Provider [phone] Source Comments In the event this information is protected by the Federal Confidentiality of Alcohol and Drug AbusePatient Records regulations: The Federal rules restrict any use of the information to criminally investigate or prosecute any alcohol or drug abuse patient.[facility] Encounter Details Date Type Department Care Team (Late st Contact Info) Description 04/08/2020 Patient Msg Neurology [address] [place], [place] [phone] Provider, Ccf Follow up appointment needed Social [...] 07/01/2025 2:30 PM EST Office Visit Neurology [address] [place] [address] Donald Alberts, DO [address] [place] [address] 6 month follow up documented as of this encounter Visit Diagnoses Not on filedocumented in this encounter Care Teams Blood Bank Booking Clerk Relationship Specialty Start Date End Date Nathan Hartman MD [address] [place] [address] PCP - General Family Medicine 07/29/20 documented as of this encounter
--- OUTSIDE RECORDS SUMMARY | 2025-04-07 09:43 | XMS_ITS | Encounter Summary ---
Author Organization [facility] Address [address] [place] [address] Care Team Providers Care Leave Specialist Name Role Phone Nathan Bolton MD Primary Care Provider [phone] Encounter Details Date Type Department Care Team (Late st Contact Info) Description 09/13/2023 Clinisync Result Encounter [facility] External Department Unsolicited Nathan Bolton MD [address] [place] [address] Social History Tobacco Use Types Packs/Day Years [...] often do you attend chur ch or temple services? Never 09/09/2023 Do you belong to any clubs o r organizations such as congregational groups, unions, fraternal or athletic groups, or [...] and heating? Not hard at all 09/09/2023 [facility] - Occupational [...] in a skilled nursing (including now)? No 09/09/2023 Sex and Gender Information Value Date Recorded Sex Assigned at Not on file Legal Sex Male 8:32 PM EDT Gender Identity Not on file Sexual Orientation Not on file documented as of this encounter Plan of Treatment Upcoming Encounters Date Type Department Care Team (Late st Contact Info) Description 05/12/2025 1:15 PM EDT Procedure Visit [facility] [address] [place] [address] Ky Santo DPM [address] [place], [place] [address] documented as of this encounter Procedures Procedure Name Priority Date/Time Associated Diagnosis Comments US RIGHT UPPER QUADRANT 09/13/2023 10:05 AM EST documented in this encounter Results * US RIGHT UPPER QUADRANT (09/13/2023 10:05 AM EST) Anatomical Region Laterality Modality Other 09/13/2023 10:0 5 AM EST Narrative 09/13/2023 10:08 AM EST The [address] [address] Ultrasound Report Signed Patient: HERRERA MARTINEZ MR#: [id number] : 1945 Acct:[id number] Age/Sex: 78 / M ADM Date: 09/13/23 Loc: US Attending Dr: Nathan Bolton M.D. Ordering Physician: Nathan Bolton M.D. Date of Service: 09/13/23 Procedure(s): US right upper quadrant Accession Number(s): [id number] cc: Nathan Bolton M.D. The [place] [address] Patient Name: HERRERA MARTINEZ MRN: [id number] date: 1945 Sex: M Assigned Patient Location: US Current Patient Location: US Accession/Order Number: [id number] Exam Date: 09/13/2023 09:12 Report Date: 09/13/2023 [...] Signed By: 09/13/23 1008 DD/ 1005 TD/TT: Capsule Filler: Procedure Note Radiology, Radiologist, - 09/13/2023 [place] [address] Ultrasound Report Signed Patient: HERRERA MARTINEZ UMR#: [id number] : 1945cct:[id number] Age/Sex: 78 / MADM Date: 09/13/23 Loc: US Attending Dr: Nathan Bolton M.D. Ordering Physician: Nathan Bolton M.D. Date of Service: 09/13/23 Procedure(s): US right upper quadrant Accession Number(s): [id number] cc: Nathan Bolton M.D. [place] [id number] Patient Name: HERRERA MARTINEZ MRN: [id number] date: 1945 Sex: M Assigned Patient Location: US Current Patient Location: US Accession/Order Number: [id number] Exam Date: 09/13/2023 09:12 Report Date: 09/13/2023 [...] M.D. Signed By:09/13/23 1008 DD/ 1005 TD/TT: Capsule Filler: Nathan Bolton MD [facility] Final Result documented in this encounter Visit Diagnoses Not on filedocumented in this encounter Care Teams Leave Specialist Relationship Specialty Start Date End Date Nathan Bolton MD PCP - General Family Medicine 09/10/23 documented as of this encounter
--- OUTSIDE RECORDS SUMMARY | 2025-04-07 09:43 | XMS_ITS | Encounter Summary ---
Author Organization [facility] Address [address] [place] [address] Care Team Providers Care Land Leveler Name Role Phone Nathan Bolton MD Primary Care Provider [phone] Encounter Details Date Type Department Care Team (Late st Contact Info) Description 09/13/2023 Clinisync Result Encounter [facility] External Department Unsolicited Nathan Bolton MD [address] [place] [address] Social History Tobacco Use Types Packs/Day Years [...] often do you attend chur ch or church services? Never 09/09/2023 Do you belong to any clubs o r organizations such as uatsdin groups, unions, fraternal or athletic groups, or [...] and heating? Not hard at all 09/09/2023 [facility] Occupat ional Health - Occupational Stress [...] place to sleep or slept in a usp (including now)? No 09/09/2023 Sex and Gender Information Value Date Recorded Sex Assigned at Not on file Legal Sex Male 8:32 PM EDT Gender Identity Not on file Sexual Orientation Not on file documented as of this encounter Plan of Treatment Upcoming Encounters Date Type Department Care Team (Late st Contact Info) Description 05/12/2025 1:15 PM EDT Procedure Visit [facility] [address] [place] [address] Ky Santo DPM [address] [place], [place] [address] documented as of this encounter Procedures Procedure Name Priority Date/Time Associated Diagnosis Comments XR CINERADIOGRAPHY 09/13/2023 11 :01 AM EST documented in this encounter Results * XR CINERADIOGRAPHY (09/13/2023 11:01 AM EST) Anatomical Region Laterality Modality Other 09/13/2023 11:0 1 AM EST Narrative 09/13/2023 11:03 AM EST The [address] [address] Fluoroscopy Report Signed Patient: HERRERA MARTINEZ MR#: [id number] : 1945 Acct:[id number] Age/Sex: 78 / M ADM Date: 09/13/23 Loc: US Attending Dr: Nathan Bolton M.D. Ordering Physician: Nathan Bolton M.D. Date of Service: 09/13/23 Procedure(s): FL cineradiography Accession Number(s): [id number] cc: Nathan Bolton M.D. The [address] [address] Patient Name: HERRERA MARTINEZ MRN: [id number] date: 1945 Sex: M Assigned Patient Location: US Current Patient Location: US Accession/Order Number: [id number] Exam Date: 09/13/2023 09:45 Report Date: 09/13/2023 11:01 At the request of: NATHAN BOLTON Procedure: FL cineradiography PROCEDURE: FL upper [...] Signed By: 09/13/23 1103 DD/ 1101 TD/TT: Commercial Real Estate Attorney: Procedure Note Radiology, Radiologist, MD - 09/13/2023 [place] [address] Fluoroscopy Report Signed Patient: HERRERA MARTINEZ UMR#: [id number] : 7Acct:[id number] Age/Sex: 78 / MADM Date: 09/13/23 Loc: US Attending Dr: Nathan Bolton M.D. Ordering Physician: Nathan Bolton M.D. Date of Service: 09/13/23 Procedure(s): FL cineradiography Accession Number(s): [id number] cc: Nathan Bolton M.D. The [place] [id number] Patient Name: HERRERA MARTINEZ MRN: [id number] date: 1945 Sex: M Assigned Patient Location: US Current Patient Location: US Accession/Order Number: [id number] Exam Date: 09/13/2023 09:45 Report Date: 09/13/2023 11:01 At the request of: NATHAN BOLTON Procedure: FL cineradiography PROCEDURE: FL upper [...] M.D. Signed By:09/13/23 1103 DD/ 1101 TD/TT: Commercial Real Estate Attorney: Nathan Bolton MD [facility] Final Result documented in this encounter Visit Diagnoses Not on filedocumented in this encounter Care Teams Land Leveler Relationship Specialty Start Date End Date Nathan Bolton MD PCP - General Family Medicine 09/10/23 documented as of this encounter
--- OUTSIDE RECORDS SUMMARY | 2025-04-07 09:43 | XMS_ITS | Encounter Summary ---
Author Organization [facility] Address [address] [place] [address] Care Team Providers Care Training And Development Officer Name Role Phone Nathan Hartman MD Primary Care Provider [phone] Nathan Hartman MD Primary Care Provider [phone] Encounter Details Date Type Department Care Team (Late st Contact Info) Description 05/08/2023 Abstract [facility] [address] [place] [address] Ky Santo DPM [address] [facility] [place], [place] [address] Social History Tobacco Use Types Packs/Day Years [...] Procedure Visit [facility] [address] [place] [address] Ky Santo DPM [address] [place], [place] [address] documented as of this encounter Visit Diagnoses Not on filedocumented in this encounter Care Teams Training And Development Officer Relationship Specialty Start Date End Date Nathan Hartman MD PCP - General Family Medicine 05/08/23 09/09/23 Nathan Hartman MD PCP - General Family Medicine 09/10/23 documented as of this encounter
--- OUTSIDE RECORDS SUMMARY | 2025-04-07 09:44 | XMS_ITS | CCD ---
Author Organization [facility] Care Team Providers Care Dust Box Tender Name Role Phone Nathan Bolton Primary Care Provider GUAJARDO ., DR NIKHIL Ross Admitting Unavailable GUAJARDO ., DR NIKHIL Ross Attending Unavailable LE .DANIEL Consulting Unavailable NADERER, DR NATHAN Alonso Primary Care Unavailable GUAJARDO ., DR INKHIL Ross Admitting Unavailable GUAJARDO ., DR NIKHIL [...] Consulting Unavailable Nathan Bolton Primary Care Provider ARISTEO, DONALD T Attending Unavailable NATHAN BOLTON Primary Care Unavailable GOSTKOWSKI, DONALD T Referring Unavailable DANICATYULI, DONALD T Attending Unavailable NATHAN BOLTON Primary Care Unavailable Nathan Bolton MD Primary Care Provider Nathan Bolton Primary Care Provider [phone] YOBANY GONZALES Referring Unavailable NATHAN BOLTON Primary Care Unavailable YOBANY GONZALES Attending Unavailable NATHAN BOLTON Referring Unavailable HOANG, NATHAN Primary Care Unavailable Nathan Bolotn MD Primary Care Provider [phone] NATHAN BOLTON Primary Care Unavailable Gostkocecy DO, Donald T Attending Unavaila ble Aristeo GARNER, Donald T Admitting UnavailNathan Bennett MD Primary Care Provider NATHAN BOLTON Primary Care Unavailable GOSTKOWSKI, DONALD T Referring Unavailable GOSTYULI, DONALD T Attending Unavailable NATHAN BOLTON Primary Care Unavailable GOSTKOWSKI, DONALD T Attending Unavailable NATHAN BOLTON Primary Care Unavailable GOSTKOWSKI, DONALD T Referring Unavailable DANICATYULI, DONALD T Attending Unavailable NADEREGideon, NATHAN Attending Unavailable NADERER, NATHAN Attending Unavailable RUSHER, AYAZ Alonso Attending Unavailable NADERER, NATHAN Attending Unavailable RUSHER, AYAZ Alonso Attending Unavailable NADERER, NATHAN Attending Unavailable RUSHER, AYAZ Alonso Attending Unavailable NADERER, NATHAN Attending Unavailable RUSHER, AYAZ Alonso Attending Unavailable Elan Jenkins MD Attending Unavailable Medications Current Medications Medication Drug Class(es) Dates Sig (Normalized) Sig (Original) 8 hr acetaminophen 650 mg extended release oral tablet (20 sources) take 1 tablet by mouth every eight hours as needed for pain acetaminophen (Tylenol 8 Hour) 650 MG ER tablet Take 650 mg by mouth every 8 (eight) hours if needed for mild pain Do not crush, chew, or split. Active acetaminophen 325 mg / oxyCODONE hydrochloride 5 mg oral tablet (11 sources) Opioid Agonist oxyCODONE-acetam varghese phen (Percocet) 5-325 MG tablet every 4 (four) hours if needed for severe pain Active aspirin 81 mg delayed release oral tablet (20 sources) Platelet Aggregation Inhibitor, Nonsteroidal Anti-inflammatory Drug take 1 tablet by mouth once daily aspirin 81 MG EC tablet Take 81 mg by mouth Daily Active Comment on above: Take 81 mg [...] (11 sources) Sodium-Glucose Cotransporter 2 Inhibitor Start: 024 take 1 tablet by mouth once daily at breakfast empagliflozin (JARDIANCE) 25 mg tablet Take 1 tablet by mouth daily with breakfast. 06/18/2024 Active glipiZIDE 10 mg oral tablet (20 sources) Sulfonylurea Start: 025 take 2 tablets by mouth in the morning glipiZIDE (Glucotrol) 10 MG tablet Indications: Type 2 diabetes mellitus with hyperglycemia, without long-term current use of insulin ([facility]) Take 2 tablets (20 mg) by mouth in the morning and 2 tablets (20 mg) in the evening. Take before meals. 360 tablet 3 03/03/2025 Active Start: 02-04-2025 End: 03-03-2025 glipiZIDE (Glucotrol) 10 MG tablet Indications: Type 2 diabetes mellitus with hyperglycemia, without long-term current use of insulin (HCC) TAKE 1 TABLET IN THE MORNING AND 1 TABLET IN THEEVENING BEFORE MEALS 180 tablet 3 02/04/2025 03/03/2025 Discontinued (Reorder) Start: 02-17-2024 take 1 tablet by esvin th in the morning glipiZIDE (Glucotrol) 10 MG tablet Indications: Type 2 diabetes mellitus with hyperglycemia, without long-term current use of insulin ([facility]) Take 1 tablet (10 mg) by mouth [...] mouth o nce daily. Magnesium (20 sources) magnesium 250 MG tablet Take by mouth Active take 1 tablet by mouth in the mo rning magnesium 250 mg tablet Indications: hypomagnesemia Take [...] tablet (20 sources) Nonsteroidal Anti-inflammatory Drug Start: 03-03-2019 End: 02-16-2025 meloxicam (Mobic) 7.5 MG tablet Indications: DDD (degenerative disc disease), lumbar TAKE 1 TABLET DAILY 90 tablet 3 02/04/2025 Active Comment on above: Take 7.5 mg by mouth once daily. 24 hr metFORMIN hydrochloride 500 mg extended release oral tablet (20 sources) Biguanide Start: 02-04-2025 metFORMIN XR (Glucophage-XR) 500 MG 24 hr tablet Indications: Type 2 diabetes mellitus with hyperglycemia, without long-term current use of insulin (HCC) TAKE 1 TABLET IN THE MORNING AND BEFORE BEDTIME.DO NOT CRUSH, CHEW OR SPLIT 180 tablet 3 02/04/2025 Active Start: 02-17-2024 take 1 tablet by esvin th every twenty-four hours in the morning metFORMIN XR (Glucophage-XR) 500 MG 24 hr tablet Indications: Type 2 diabetes mellitus with hyperglycemia, without long-term current use of insulin (HCC) Take 1 tablet (500 mg) by mouth [...] mg once daily. Multiple Vitamin (multivitamin) tablet (20 sources) take 1 tablet by mouth once daily Multiple Vitamin (multivitamin) tablet Take 1 tablet by mouth Daily Active take 1 tablet by mouth in the mo rning Multiple Vitamin (multivitamin) tablet Take 1 tablet by mouth in the morning. Active take 1 tablet by mouth in the mo rning Multiple Vitamin (multivitamin) tablet Take 1 tablet by mouth in the morning. 0 Active byrqleqd-gudd-EN-calcium &mi ns (THERAGRAN-M) 9 mg iron-400 mcg tablet (1 source) agorkjgb-iuwd-ET -calcium &mins (THERAGRAN-M) 9 mg iron-400 mcg tablet Take 1 tablet by mouth in the morning. Active multivit-minerals/FA/lycopen e (ONE-A-DAY MEN'S ORAL) (16 sources) multivit-mineral s/FA/lycopene (ONE-A-DAY MEN'S ORAL) Take by mouth once daily. Active multivit-mineral s/FA/lycopene (ONE-A-DAY MEN'S ORAL) Take by mouth once daily. 0 Active Comment on above: Take by mouth once d aily. nitrofurantoin, macrocrystals 25 mg / nitrofurantoin, monohydrate 75 mg oral capsule (4 sources) Nitrofuran Antibacterial Start: 12-01-19 End: 12-08-19 take 1 capsule by mouth in the morning nitrofurantoin, macrocrystal-monohyd rate, (Macrobid) 100 MG capsule Indications: Acute cystitis without hematuria Take 1 capsule (100 mg) by mouth in the morning and 1 capsule (100 mg) before bedtime. Do all this for 7 days. 14 capsule 11/30/2024 11/30/2024 Discontinued (Reorder) omeprazole 40 mg delayed release oral capsule (20 sources) Proton Pump Inhibitor Start: 10-20-19 omeprazole (PriLOSEC) [address] capsule Indications: [...] 2 09/10/2023 Active take 1 capsule by [facility] twice daily in the evening omeprazole (PRILOSEC) 40 mg capsule Take 40 mg by mouth two times a day. One in am and one at pm Active polyethylene glycol 3350 73404 mg powder for oral solution (8 sources) Osmotic Laxative take 17 g by mouth once daily polyethylene glycol, PEG, 3350 (Miralax) 17 g packet Take 17 g by mouth Daily Active predniSONE 50 mg oral tablet (2 sources) Start: 5 End: 5 take 1 tablet by mouth once daily predniSONE (Deltasone) 50 MG tablet Indications: Strain of calf muscle, subsequent encounter Take 1 tablet (50 mg) by mouth Daily for 6 days 6 tablet 09/07/2024 09/13/2024 Active ramipril 1.25 mg oral capsule (20 sources) Angiotensin Converting Enzyme Inhibitor Start: 9 ramipril (ALTACE) 1.25 mg capsule 1.25 mg once daily. 0 02/17/2019 Active Comment on above: 1.25 mg once daily. rasagiline 1 mg oral tablet (20 sources) Monoamine Oxidase Inhibitor Start: 3 End: 4 take 1 tablet by mouth once daily rasagiline (AZILECT) 1 mg tab Take 1 tablet by mouth once daily. 90 tablet 3 12/26/2023 Active Start: 03-06-2023 [facility] rasagiline (AZILECT) 1 mg tab Take 1 tablet by mouth once daily. 90 tablet 3 03/06/2023 Active Start: 01-15-2020 End: 09-10-2022 take 1 tablet by mouth once daily rasagiline (AZILECT) 1 mg tab Take 1 tablet by mouth once daily. 90 tablet 1 09/10/2022 Active take 2 tablets by [facility] once daily rasagiline (Azilect) 0.5 MG tablet Take 1 mg by mouth Daily Active Comment on above: Take 1 tablet by esvin once daily. simvastatin 40 mg oral tablet (20 sources) HMG-CoA Reductase Inhibitor Start: 02-04-2025 simvastatin (Zocor) 40 MG tablet Indications: Dyslipidemia TAKE 1 TABLET AT BEDTIME 90 tablet 3 02/04/2025 Active Start: 02-17-2019 take 1 tablet by esvin th at bedtime simvastatin (Zocor) 40 MG tablet Indications: Dyslipidemia Take 1 tablet (40 mg) by mouth at bedtime 90 tablet 3 02/17/2024 Active Comment on above: 40 mg daily at bedti me. SITagliptin 100 mg oral tablet (13 sources) Dipeptidyl Peptidase 4 Inhibitor Start: 10-02-2024 End: 03-25-2025 take 1 tablet by mouth once daily Januvia 100 MG tablet Indications: Type 2 diabetes mellitus with hyperglycemia, without long-term current use of insulin (HCC) TAKE 1 TABLET BY MOUTH EVERY DAY 30 tablet 5 03/25/2025 Active vitamin e 268 mg oral capsule [...] Active Problems Problem Classification Problem Date Documented Da te Episodic/Chronic Cataract (8 sources) Age-related nuclear cataract, right eye; Translations: [Age-related nuclear cataract, left eye] Onset: 08-30-2022 Chronic Diabetes mellitus with complications (20 sources) Type 2 diabetes mellitus with hyperglycemia; Translations: [Type 2 diabetes mellitus] Onset: 11-26-2022 Chronic Diabetes mellitus without complication (1 source) Type 2 diabetes mellitus without complications; Translations: [TYPE 2 DM WITHOUT COMPLICATIONS] Onset: 08-31-2022 Chronic Disorders of lipid metabolism (20 sources) Hyperlipidemia, unspecified; Translations: [Pure hypercholesterolemia , unspecified] Onset: 08-31-2022 09-10-2023 Chronic Essential hypertension (20 sources) Essential (primary) hypertension; Translations: [Benign essential hypertension] Onset: 11-29-2022 09-10-2023 Chronic Immunity disorders (2 sources) Secondary immune deficiency disorder; Translations: [Immunodeficiency due to conditions classified elsewhere ([facility])] 06-01-2024 Chronic Mycoses (4 sources) Onychomycosis due to dermatophyte ; Translations: [Tinea unguium] 07-07-2024 Episodic Osteoarthritis (20 sources) Unspecified osteoarthritis, unspecified site; Translations: [Degenerative joint disease involving multiple joints] Onset: 08-31-2022 09-10-2023 Chronic Other acquired deformities (1 source) Other forms of scoliosis, lumbar region; Translations: [OTHER FORMS SCOLIOSIS LUMBAR REGION] Onset: 05-18-2022 Chronic Other aftercare (1 source) Other continuous churn buttermaker (current) drug therapy; Translations: [OTH LAB SPECIALIST CURRENT DRUG THERAPY] Onset: 12-15-2022 Episodic Other aftercare (1 source) snf (current) use of aspirin; Translations: [LAB SPECIALIST CURRENT USE OF ASPIRIN] Onset: 12-15-2022 Episodic Other aftercare (1 source) continuous churn buttermaker (current) use of oral hypoglycemic drugs; Translations: [LAB SPECIALIST USE ORAL HYPOGLYCEMIC DX] Onset: 12-15-2022 Episodic Other connective tissue disease (8 sources) Pain in toe; Translations: [Pain in right toe(s)] 07-07-2024 Episodic Other gastrointestinal disorders (5 sources) Dysphagia; Translations: [Dysphagia, unspecified] Onset: 03-03-2025 03-03-2025 Episodic Other nervous system disorders (1 source) [...] Onset: 05-09-2021 05-09-2021 Chronic Other skin disorders (4 sources) Dystrophia unguium; Translations: [Nail dystrophy] 07-07-2024 [...] forearm, initial encounter] Onset: 06-30-2022 Episodic Unclassified (20 sources) Symptomatic parkinsonism; Translations: [Parkinson disease, symptomatic] Onset: 09-10-2023 09-10-2023 Chronic Unclassified (4 sources) LOW BACK PAIN, UNSPECIFIED; Translations: [LOW BACK PAIN, UNSPECIFIED] Onset: 05-18-2022 Unclassified (1 source) CONTACT W/AND (SUSP) EXPOS COVID-19; Translations: [CONTACT W/AND (SUSP) EXPOS COVID-19] Onset: 05-23-2022 Past or Other Problems Problem Classification Problem Date Documented Da te Episodic/Chronic Abdominal pain (20 sources) Epigastric pain; Translations: [Epigastric pain] Onset: 09-10-2023 09-10-2023 Episodic Calculus of urinary tract (12 sources) Kidney stone; Translations: [Calculus of kidney] Onset: 10-02-2024 10-02-2024 Episodic Diseases of mouth; excluding dental (16 sources) Excessive salivation; Translations: [Disturbances of salivary secretion] Onset: 12-05-2022 Episodic E Codes: Fall (20 sources) Unspecified fall, initial encounter; Translations: [Fall] Onset: 12-15-2022 12-11-2023 Episodic Genitourinary symptoms and ill-defined conditions (20 sources) Lefty hematuria; Translations: [Gross hematuria] Onset: 12-21-2020 Resolved: 10-02-2024 09-10-2023 Episodic Melanomas of skin (1 source) Personal history of malignant melanoma of skin; Translations: [PERSONAL HX MALIGNANT MELANOMA SKIN] Onset: 08-31-2022 Episodic Other aftercare (20 sources) Long-term current use of drug therapy; Translations: [Other usp (current) drug therapy] Onset: 12-02-2023 12-02-2023 Episodic Other aftercare (1 source) Patient encounter status; Translations: [Other usp (current) drug therapy] Onset: 12-02-2023 12-02-2023 Episodic Other diseases of bladder and urethra (1 source) Unspecified bulbous urethral stricture, male; Translations: [Urethral stricture, unspecified] Onset: 03-06-2021 05-25-2024 Episodic Other fractures (20 sources) Closed fracture of sternum; Translations: [Fracture of body of sternum, subsequent encounter for fracture with routine healing] Onset: 02-04-2024 Resolved: 10-02-2024 03-05-2024 Episodic Other fractures (12 sources) Closed fracture of one rib; Translations: [Fracture of one rib, left side, subsequent encounter for fracture with routine healing] Onset: 10-02-2024 Resolved: 11-30-2024 10-02-2024 Episodic Other nervous system disorders (20 sources) Abnormal gait; Translations: [Unsteadiness on feet] [...] disc disorders; other back problems (20 sources) Chronic low back pain; Translations: [Chronic midline low back pain without sciatica] Onset: 12-11-2023 12-11-2023 Episodic Sprains and strains (16 sources) Strain of calf muscle; Translations: [Strain of other muscle(s) and tendon(s) at lower leg level, unspecified leg, subsequent encounter] Onset: 09-07-2024 Resolved: 10-02-2024 09-07-2024 Episodic Unclassified (1 source) LOW BACK PAIN, UNSPECIFIED; Translations: [LOW BACK PAIN, UNSPECIFIED] Onset: 05-15-2022 Urinary tract infections (10 sources) Acute cystitis; Translations: [Acute cystitis without hematuria] Onset: 11-30-2024 11-30-2024 Episodic Results Test Name Value Interpretation Reference Range Facility [facility] 12-17-2024 CNOV Office Visit (NRESAV) HERRERA WETZEL ([id number]) 1945 M Date Time Provider Department 12/17/24 1:30 PM DONALD ALBERTS NRESAV During your visit today, we recorded the following information about you: Pulse Blood pressure 68/minute 101/64 Donald Alberts, DO 12/17/2024 2:53 PM Signed [facility] - FOLLOW UP EVALUATION Recording using [employer] software for draft documentation of the visit was discussed with the patient/authorized service liaison representative; all questions welcomed and answered. Patient/authorized service liaison representative agreed to proceed Nathan Bolton MD [address] [facility] [id number] Dear Nathan Bolton MD: I had the pleasure of seeing Mr. Wetzel for follow-up today. As you know he is a 79 year old male with a history of PD since 2014. He is seen with his with daughter. Subjective Previous Plan- 06/18/2024 Visit: Continue current antiparkinsonian regimen as dosed. Rx for U-STEP Walking Stabilizer Walker Rx for speech therapy to focus on [employer] ([facility]) Interested in clinical research? Not discussed Interval History: Herrera is a 79-year-old male with a history of Parkinson's disease, presenting for follow-up. He is accompanied by his , who provides additional history. Herrera was diagnosed with Parkinson's disease in 2014. Since July, he has experienced three falls, two of which required EMS transport. His reports that the falls are often preceded by episodes of freezing and occasional dizziness. She notes that the falls are becoming more common and attributes one incident to the layout of their home, which they have since rearranged to accommodate his needs. The most recent fall occurred when he turned to place a plate of cookies on a table. His expresses a desire to reduce the frequency of falls and has encouraged him to use a gait belt more consistently. He is currently taking Sinemet, which his believes helps control his tremors, particularly in his leg. She notes that if he is late taking a dose, the tremor becomes more pronounced. However, she acknowledges that the medication does not seem to address the freezing episodes or falls. He is also taking Azilect. His reports that he occasionally zones out, particularly when tired, but does not endorse hallucinations or vivid dreams. He is described as pretty spry in the mornings and does not require an extended-release medication overnight. He is actively participating in one-on-one physical therapy sessions twice a week in [place] and has previously engaged in voice therapy, which he plans to resume. He uses a U-Step walker, which he finds beneficial. His is considering enrolling him in [employer] classes at the [facility] in [place] to maintain his physical activity and social connections. He has a history of back pain managed with ablations and has a prescription for Percocet, which he uses as needed. He also uses atropine for drooling, which provides some relief. His has found that chewing mint or gum prompts him to swallow more frequently, further helping with drooling. His weight has stabilized after a previous loss; he has gained back 10 pounds and is increasing his protein intake. Movement Disorders Medications Schedule - as of [...] chair: Yes (mild) Tremors/Gait/Balance Shaking or tremors: Yes (slight) Walking and balance problems: Yes (moderate) Number of falls in the Last Month: 1 time past 4 weeks, 3 times in the last 3 months, plus UTI and Kidney stone Gait freezing: Yes (moderate) Autonomic/Pain Lightheadeness on standing: Yes (mild) Urinary problems: Yes (slight) Constipation problems: 0 (none) Pain and other sensations: Yes (slight) Speech/Swallowing Speech problems: Yes (moderate) Drooling: Yes (severe) Chewing and swallowing problems: Yes (slight) Sleep/Fatigue Sleep problems: Yes (mild) Daytime sleepiness: Yes (mild) Fatigue: Yes (slight) Mood/Behavior Depression: PHQ-9 Score: 7 usually representing mild (5-9) depression. Anxiety: JULIO C-7 Total Score: 2 usually representing no significant (0-4) anxiety. Finally, the following table shows the patient's overall global physical and menta (more content not included)... Normal [facility] MLR HEMOGLOBIN A1Con 025 Glucose [Mass/Vol] 169 mg/dL [facility] HbA1c (Bld) [Mass fraction] 7.5 % High 4.5 - 6.2 % [facility] Comment on above: ADA RECOMMENDED LIMI T 4.0 - 6.0 ADA THERAPEUTIC TARGET < 7.0 ACTION SUGGESTED > 7.0 Interpretation and review of laboratory results Abnormal [facility] Provider Orderson 07-15-2024 Provider Orders [id number] [facility] [place] 07-14-2024 [facility] Telephone (NRESAV) HERRERA WETZEL ([id number]) 1945 M Date Time Provider Department 07/14/24 DONALD ALBERTS During your visit today, we recorded the following information about you: Kathleen Flanagan LPN 07/14/2024 3:15 PM Addendum 07/14/2024 Debora MIR received from [employer]. Dr. Alberts reviewed and signed. POC securely [...] Encounter Status:Closed by KATHLEEN FLANAGAN on 07/14/24 [facility] Coding Summaryon 06-30-2024 Coding Summary HTMLBase 64 UfcufbxeOQb5vEx+PGhl YWQ+LN7MADUvZ17ycATj xD4sO9NPLPxJVhykIEXM VSiHImBtvgBuFW1ihSTm ZXJu IC8+OW9mEDPnOtravROt g7Q1gJI9Y38hds8zYBpa zGG5TWZpZiJbrceyq9xj dMp9JVfjIncjXkVj YSFcaK96IIM6cO82Jw58 lBWynRPta8dbkSq8BiTi XNTnZTG6eJykNDawm1Em JHCzB92wnDRqv5W8 IGNvbGxhcHNlOyBlbXB0 dV1eIDvwhqqjg3abikff Dmd3xo57fHJek5C1qCZ4 W9DbmsB9FNSiuVCl OukfwCSZgS0sxbimq4dc ynjuRsUvCAIwIFa8WAi9 PUWfaUviYyVpXF45WUU6 SCBulsDgI8LaASLk iMayCiE3o6M0Tp5SQ4PL LblbS2CVEELZXIduoPE+ CN38ws13I2GzNgvuKlj9 FBLsRUM6rFN6fD5a ZBBjWUkrx6D3cLJ8A6Ve hoTnrm1gx7ixJMOyILqt U45fyUKcc9S5HMIyaSH3 NUJfxFqjHpWtrS72 Oyc+GEQoyUndr9XfZzmq e6uov8insEb1BbsyZWQe hiOqsBebSPW0p4UjGg9y GWNwgXG1tCQ2kN3y HlKqMpS5APceY800IjMa eVRtXojnF39nG9CafOK+ UBPlTmo2VJXwiEuxAL3p X5AaZEZerfkzjSTh tPcpLZ9rPFTsocymYJJo lV4fYMCuJ5x8OzHcQvM1 OGlsR7EqMNOazgdfTm23 nU4zIvKvEvA3GPlc X5EhdtT4RBHvgWRhWVhm OFZ7D67as9U6CKKkVMEy REJ2eMU8kR4doKpwbsqz bGVmdDsgdmVydGlj YXfbUTvbH801AQRisPoz PkNvZGluZyBEYXRlOiAg MTIvMDMvMjAyNDwvdGQ+ NUEfFCK6jXdwUSPn zDDrVBfjSm9fdLqemBum AD9iBLZwseirRQLlpB4t XFMyzDNijDyqST8sXVDp nnjpk217MkRhHOU3 ZTWzoWNmJ1MzyS8pMqRn UBYdZAWoJ9WyyLWkGKim O116UWvrUuJ7JQAqczMr C3AkRNOvvBzhXzZ5 d9U0Me8Kh8WmrjqsR6Cu eHFxAbDbApmwAZm3U4Lh PjwvdHI+PY04SWAsGR97 DOb7SYK2lGvgDVzx RAYrO3ZudX9sXxCsXXKy ZGRkOyc+PHRhYmxlIHdp ZHRoPScxMDAlJyBzdHls VD1rMf7wOBXcZXKf vEujfYPtMpYax2fpQTEh KNpkHZ8ukZcvR9ZxlTC6 HEBaj8z6Gf53J64iJ7Rt dXA+IOJvnYD0nWM2 dG4nPnIdYtI6QBcoI132 IiBdkPKvDtjif5dfa0xw vJz5HjK9HBTlnlDzoJyx ZWG5p6PqBc07C51b IHdpZHRoPSIxNSUiIHZh zGqwbz0bxV5cYf0+PGNv wAZ0zEV0qW9xRlAqWfW7 UJseA430UnDivMOo Bcxwh3woa7gpcVj3XjWd VFNezlVwdEsbPXG7n3Yn Xz95U1BiwPotf1XrZlc7 fs27hPQaj3W4jCD6 G6CbNEUbtmvuqGXogEgf FN1wFHRxecsuSVVgyV7a YCCwQ0i5HiOuWeX3UShy O1ZwefB0IHYzmVJd LJPdjBZKsG7sgtyzi9ha qeaqBxTnSMBvOMi4AJq3 BOAdgVdfKlNeNHD3QuH3 RVS7fEMotM5keEkw ccwgxZ7jOcu+KOS6tPJq sANXBF4jBezudFQ+PHRk NPS0oAhqPXukOTXmhG9e YDEcX9t4PlTiTvW8 GCmoG5OfdvL4PFZwjMMy EEExmSSQgM8wvzroq4pu xwaoKdKgXUNvWGs3JMo9 LWFsaWduOiBsZWZ0 DiJ9USP0bGOkqY0pyGjx tbrxiD5wYva+QmlydGgg UQG1GJk5B8RjVqf2BUMe zYwrFQ6xwZHcTDxv Xu8hcJpywZygYD4xHSKq yjeug263VvGbm1wdHCBp oOYaGFzuTFH1U27zo0S2 PNImSBVcLYF8mGT0 pA4exNsnypjpqZGhdMlx doRpzZioMHjhFXjlY138 LDQafPgxGnAvHKy7U5Jp Oxc1WIWpqZmeWI9g fLQjIQmjXi3siHrzmYxv QD4sDCWerltwd428FvXt t6zfEGIpqXTeQEehDJA5 L04ef6B6QGLoTYIs VIL7iGY0pN8psBadlwvx bGVmdDsgdmVydGljYWwt GAqiN096GHGxyPveArGs nJt6O6CfLfw2ZWLn mBsvDO8kiJGnXVtaMq7l lTqzxYatZG3tBNJphwef u763HhXly2vzZOEeeFXc LXgnQWH9C80pn0Q5 SIAmLTYtBLK9tWV4rE2a bGlnbjogbGVmdDsgdmVy eIowJQuuWTyzX705XOWr cDsnPlBhdGllbnQg CSvuMLz9Z3PqXxmogGG+ AI04EMDxTY47tHSrrDPz e9aoqXl7BoFrCILpTKI2 tTxtXIxfh7XpVGIn K25xhOZnq2A4TJDxfDnj wPBoSkUtfGF4zR2cGZee tokgd5kgayelUqnaq8mj ij16zH22Y77gSRuo ZHRoPSIzMCUiIHZhbGln ow0piR3xZw5+PGNvbCB3 rGZ1gD8uHFDbKuP2FUxa P942KsVwtHLiTqpl f4whg4fpiLn3CgV6AMLi ziKipAkjKQT0t8UvFk92 B27cBNgrCIPtHXTeZJBy NWKslLgihs9aiT3d Ii8+JAIzhVB0bPJ4nB7o GtGtNdU1ZBgoB213XyHh gSFbCovfH67bM1TjdBS+ CWClPgv7JLUthEzl HY8ulKMiJVadWt6hDVV6 IbFeXuInAOltR9EjFDNa sunkqkbykWF3BDPqWBOp bG70Df7coSvmROZm lBTBpZ3sxlnuc8kntpgs GpXzGYGsYKk1VNx8WQTg gYpfEsPuNGR9SzA5FWR1 nYFegU8isLjlouoo mA3dN5SuDPGxiwvsZn01 wB1iNaKwNzQ5ERryDem+ AZXLPPWMKWsvH2KDGAJT UkJBTjwvdGQ+PHRk UYX8oQppPAbxLMJakO9b MKLfH9n3UfSeXdF7VCrl Z6NqQXBmmpatJp82kN2z MrPwVvL3GNnpB5De hpX3JSBnnWNsDUciCTH3 G44yz3O3IFZtFQWbFHA2 aAL7fY3iyPzomussvWCz dDsgdmVydGljYWwt DGhcH229LAKmhBkhYaXj HmGkReB2NIy2Y7UbKuv9 UYGdmWhtGM3xbPKaDKxw Bt0udQeitRjxTA7n IXSvrszqGTZmwC5yUBEq rRQuxFexBN7bACUvectm x335IwGpLVE0UVBreVUy Y1KcjF3oYxWmNQAg XWYdR8HhhSAfIAqnO111 JCtmKyY9EFPonsQoC9Go IKKprHcxXlC0y4P7Az24 NyBZZWFyczwvdGQ+ RSDsDOB8tDfwOLhmOQMa nB2hXJDdC9b7JvLgPbO2 AMzrK7QpRZEcduurKv37 cM0cMxEjMuW3GPne F7FnuhC9IYBdyMOgUYhu HUQ1O87xs4I5YCFqRKPb GVO2jWZ6mS4soLzrionv bGVmdDsgdmVydGlj ZRzgXIelY200BIErrGjq Qx2VLOJ2V8XoMfh0DBSl pIdoMZ8mrTUqAOrbCs3d dInjkVrpBJ8nVSNa yuguBWJhkV8nTTLveUQw oRwtEZ4wOWPdvxkvu227 JxDtUUQ5MVNkpVWjW7So lY2zRhAeLGAkHNRp Z5UalZBlEYgwE973IMub BdD4MRFhvjTgR7EfSGRf qKwzMcK9q6W9Tz3VYZP5 idQybfujN5W4bPM5 aWVudDwvdGQ+CO10pf25 Y0KaXmvgToa7FKLmNRP8 yBS8fT7hXAIvAEjrd4Y5 eIA8Y5WoqkOyon3u u0faOVUoKCqiF52xeLEy u5Y9JUYuuCL3BCYaqQet KfHwpP15Kuv+PGNvbGdy j4FxCrcml1irx3eo lYa2WnSoTDVidzFxwLan TWD9u6UhLx89L61rAVpr ZHRoPSIzMCUiIHZhbGln qr5elX5zYr2+PGNv eFZ7nUE4yY4rKzWePgH4 UFjoR731NdLofGOdHdyg c9xnx6lhuLg2ClKnUMGv fqVxmApnAFD9q9Qh Uk06L1QdlWkoo4LhSrq4 by83yZHwc8D5rVT1T0Mm WMVzweqfwTBzsByfPK6u SVZrekaqBRWbuV3k HNInW8e6PmTtQgC4PMar O8SribJ2WNOjpXTgLEMw iVKYgU3emtxpo6cqjaue AfMjLGFtUFe0BOj3 BMQzdNjdBtLePKX3ZqY7 EEP1pEXbnH1pqVphyikh fK3iXnx+SDg3a2dciAXy PI3mpSL7TO57YP16 nWDxm7E3tRU0Q6PbDKHn eevkupcsjQR3NNViQHKg rR55Eu6trXvyVj0jQTYt EXQ4LGBpaCLmL7Ln kJ7nTsKqYQAoAGVkR7Ar iXPqEIoyR214SVjeWnK3 JCYxejMeQ4WhHTHmmOon McF4c5U3Qb6RSD80 BB70RU51zJKog8B8xDE3 D6HxESZypnesxhfbrDS9 KPUuZSLzzM55Zs0buPeb Ln0iIINeUMS4ZFGz aANgO8KnzH6hHaNtVXMv RQRpW3GcaBSkPPvnV075 NXymHaD2CMQbcdAhX7Ux GSQnzToaOgP3t2F8 Lj7DCx61JV69KV71gMNm r7I6iHN2L2VnQMGupxgd cfmtaXJ0DWVhKVXecJ35 Ng5myLuoLx7mYLAm CXS1LBYcaVQiA0IczV2b NrYkQVCqUJAlN3GtpSGn LOkvY340OHleAcD5YYVx neXxG8QuDLEmyLzn YvU1v8M4Pe3SHUgggbk8 N2NxEjuynMV+PF36KGYs RW30kNDxtKBhz0kgeLp1 IkWrRLLuPLN0cGre PSd (more content not included)... [facility] Provider Orderson 06-22-2024 Provider Orders [id number] #1.00OTGTIFF [facility] 06-19-2024 [facility] Telephone (NRESAV) HERRERA WETZEL ([id number]) 1945 M Date Time Provider Department 06/19/24 DONALD ALBERTS During your visit today, we recorded the following information about you: Kathleen Flanagan LPN 06/19/2024 9:45 AM Signed 06/19/2024 Order sent via secured fax to [employer] at with confirmation of receipt received. Order [...] Encounter Status:Closed by KATHLEEN FLANAGAN on 06/19/24 [facility] CNOVon 06-18-2024 CNOV Office Visit (NRESAV) HERRERA WETZEL ([id number]) 1945 M Date Time Provider Department 06/18/24 9:30 AM DONALD ALBERTS NRESAV During your visit today, we recorded the following information about you: Pulse Blood pressure 93/minute 131/75 Donald Alberts, DO 06/18/2024 10:18 AM Signed [facility] - FOLLOW UP EVALUATION Nathan Bolton MD [address] [facility] [id number] Dear Nathan Bolton MD: I had the [...] mg onc (more content not included)... [facility] Telephone (NRESAV) HERRERA WETZEL ([id number]) 1945 M Date Time Provider Department 06/18/24 DONALD ALBERTS During your visit today, we [...] Status:Closed by KATHLEEN FLANAGAN on 06/18/24 Normal [facility]an MLR HEMOGLOBIN A1Con 024 Glucose [Mass/Vol] 229 mg/dL [facility] HbA1c (Bld) [Mass fraction] 9.6 % High 4.5 - 6.2 % [facility] Comment on above: ADA RECOMMENDED LIMI T 4.0 - 6.0 ADA THERAPEUTIC TARGET < 7.0 ACTION SUGGESTED > 7.0 Interpretation and review of laboratory results Abnormal [facility] Prostate specific Ag [Mass/V ol]on 05-18-2024 PROSTATIC SPEC ANT 4.50 ng/mL High 0.00-4.00 [facility] Comment on above: Result Comment: The method used for this test is Rhona AriadNEXT DXI chemiluminescent immunoassay. Values obtained by different assay methods cannot be used interchangeably. Performed By: #### 2 857-1 #### [facility] ([id number]) [address], [address] [place] [address] CNOVon 12-26-2023 CNOV Office Visit (NRESAV) HERRERA WETZEL ([id number]) 1945 M Date Time Provider Department 12/26/23 1:00 PM DONALD ALBERTS NRESAV During your visit today, we recorded the following information about you: Pulse Blood pressure 74/minute 109/70 Donald Alberts DO 12/26/2023 1:43 PM Signed [facility] - FOLLOW UP EVALUATION Donald Alberts [address] [facility] [address] Nathan Bolton MD [address] [facility] [address] Herrera Wetzel is a 78 year old male with a history of PD. He is seen with his . Interval History Since Last Visit: The patient is having more issues with falling. 4(four) falls. Going to PT and DtD. Better with U-STEP Walking Stabilizer Walker. Wearing-off causes lots of trouble with his walking. More festinating. More gkuwmivd-pf-qqmg (FOG). The patient denies any recent illness [...] Adult) P (more content not included)... Normal [facility] CNOVon 06-14-2023 CNOV Office Visit (NRESFV) HERRERA WETZEL ([id number]) 1945 M Date Time Provider Department 06/14/23 3:00 PM DONALD ALBERTS NRESFV During your visit today, we recorded the following information about you: Pulse Blood pressure Weight Height 72/minute 118/61 76.1 kg 1.778 m Donald Alberts, DO 06/14/2023 3:34 PM Signed [facility] - FOLLOW UP EVALUATION Nathan Bolton MD [address] [facility] [address] Herrera Wetzel is a 77 year old male with a history of PD. He is seen with his . Interval History Since Last Visit: The patient had a swallowing test in late november 2022 - no issues other than more focus on swallowing was made to the patient. 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 1 fall in November o/w doing [...] 72 Ht (more content not included)... [facility] (NRESFV) HERRERA WETZEL ([id number]) 1945 M Date Time Provider Department 12/05/22 1:30 PM DONALD ALBERTS NRESFV During your visit today, we recorded the following information about you: Pulse Blood pressure Weight 61/minute 127/72 74.8 kg Donald Alberts DO 12/05/2022 2:18 PM Signed [facility] - FOLLOW UP EVALUATION Donald Alberts [address] [facility] [address] Nathan Bolton MD [address] [facility] [address] Herrera Wetzel is a 77 year old male with a history of parkinsonism. He is seen with family. Interval History Since Last Visit: He is falling. There is more robdyzdq-fm-dtrs (FOG) - this is the cause of the falls. He has fallen while he is carrying things. Multitasking is a big issue. There were two falls in the post op period following cataract surgery. FOG seems to be worse in the PM. There is drooling at night. The mucous in the back of the throat is the issue. 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 The Sinemet is not [...] no evid (more content not included)... Normal [facility] CBC AUTO DIFFon 11-26-2022 BASO # 0.0 103/ul Normal 0.0-0.1 [facility] Comment on above: Performed By: #### C BC #### [facility] [address] [place] [address] Dr. Joaquín Rodriguez Basophils/100 WBC (Bld) 0.4 % Normal 0.2-2.0 [facility] Comment on above: Performed By: #### C BC #### [facility] [address] [place] [address] Dr. Joaquín Rodriguez EO # 0.1 103/ul Normal 0.0-0.7 [facility] Comment on above: Performed By: #### C BC #### [facility] [address] [place] [address] Dr. Joaquín Rodriguez Eosinophils/100 WBC (Bld) 2.6 % Normal 0.9-7.0 [facility] Comment on above: Performed By: #### C BC #### [facility] [address] [place] [address] Dr. Joaquín Rodriguez Erythrocyte distribution width (RBC) [Ratio] 13.2 % Normal 11.0-15.0 [facility] Comment on above: Performed By: #### C BC #### [facility] [address] [place] [address] Dr. Joaquín Rodriguez Hematocrit (Bld) [Volume fraction] 47.0 % Normal 42.0-54.0 [facility] Comment on above: Performed By: #### C BC #### [facility] [address] [place] [address] Dr. Joaquín Rodriguez Hemoglobin (Bld) [Mass/Vol] 15.9 g/dL Normal 14.0-18.0 [facility] Comment on above: Performed By: #### C BC #### [facility] [address] [place] [address] Dr. Joaquín Rodriguez IG # 0.01 10e3/ul Normal 0.00-0.03 [facility] Comment on above: Performed By: #### C BC #### [facility] [address] [place] [address] Dr. Joaquín Rodriguez IG % 0.2 % Normal 0.0-0.5 [facility] Comment on above: Performed By: #### C BC #### [facility] [address] [place] [address] Dr. Joaquín Rodriguez LYMPH # 1.5 103/ul Normal 1.2-3.8 [facility] Comment on above: Performed By: #### C BC #### [facility] [address] [place] [address] Dr. Joaquín Rodriguez Lymphocytes/100 WBC (Bld) 30.0 % Normal 20.5-60.0 [facility] Comment on above: Performed By: #### C BC #### [facility] [address] [place] [address] Dr. Joaquín Rodriguez MANUAL DIFF REQ NO Normal [facility] Comment on above: Performed By: #### C BC #### [facility] [address] [place] [address] Dr. Joaquín Rodriguez MCH (RBC) [Entitic mass] 30.8 pg Normal 25.9-34.0 [facility] Comment on above: Performed By: #### C BC #### [facility] [address] [place] [address] Dr. Joaquín Rodriguez MCHC (RBC) [Mass/Vol] 33.8 g/dL Normal 29.9-35.2 [facility] Comment on above: Performed By: #### C BC #### [facility] [address] [place] [address] Dr. Joaquín Rodriguez MCV (RBC) [Entitic vol] 90.9 fL Normal 80.0-94.0 [facility] Comment on above: Performed By: #### C BC #### [facility] [address] [place] [address] Dr. Joaquín Rodriguez MONO # 0.4 103/ul Normal 0.3-0.8 [facility] Comment on above: Performed By: #### C BC #### [facility] [address] [place] [address] Dr. Joaquín Rodriguez Monocytes/100 WBC (Bld) 7.5 % Normal 1.7-12.0 [facility] Comment on above: Performed By: #### C BC #### [facility] [address] [place] [address] Dr. Joaquín Rodriguez NEUT # 3.0 103/ul Normal 1.4-6.5 [facility] Comment on above: Performed By: #### C BC #### [facility] [address] [place] [address] Dr. Joaquín Rodriguez Neutrophils/100 WBC (Bld) 59.3 % Normal 43.0-75.0 [facility] Comment on above: Performed By: #### C BC #### [facility] [address] [place] [address] Dr. Joaquín Rodriguez Platelet mean volume (Bld) [Entitic vol] 11.2 fL Normal 9.5-13.5 [facility] Comment on above: Performed By: #### C BC #### [facility] [address] [place] [address] Dr. Joaquín Rodriguez PLT 128 103/ul Critically low 150-450 [facility] Comment on above: Performed By: #### C BC #### [facility] [address] [place] [address] Dr. Joaquín Rodriguez RBC 5.17 106/ul Normal 4.70-6.10 [facility] Comment on above: Performed By: #### C BC #### [facility] [address] [place] [address] Dr. Joaquín Rodriguez WBC 5.1 103/ul Normal 4.0-11.0 [facility] Comment on above: Performed By: #### C BC #### [facility] [address] [place] [address] Dr. Joaquín Rodriguez GLYCOHEMOGLOBIN A1Con 2022 ADA RECOMMENDATION SEE BELOW Normal [facility] Comment on above: Result Comment: ADA RECOMMENDED LIMIT 4.0 - 6.0 ADA THERAPEUTIC TARGET < 7.0 ACTION SUGGESTED > 7.0 Performed By: #### A 1C #### [facility] [address] [place] [address] Dr. Joaquín Rodriguez Glucose [Mass/Vol] 235 mg/dL Normal [facility] Comment on above: Performed By: #### A 1C #### [facility] [address] [address] [address] Joaquín Rodriguez HbA1c (Bld) [Mass fraction] 9.8 % Critically high 4.5-6.2 [facility] Comment on above: Performed By: #### A 1C #### [facility] [address] [address] [address] Joaquín Rodriguez LIPID PROFILEon 11-26-2022 CHOL-HDL RATIO NORM SEE BELOW Normal [facility] Comment on above: Result Comment: 3.3 - 4.4 LOW RISK 4.4 - 7.1 AVERAGE RISK 7.1 - 11.0 MODERATE RISK >11.0 HIGH RISK Performed By: #### L IVER, LIPID, BMP ####[facility] [address] [address]Dr. Joaquín Rodriguez Cholesterol [Mass/Vol] 145 mg/dL Normal <=200 [facility] Comment on above: Performed By: #### L IVER, LIPID, BMP ####[facility] [address] [address]DrKlaudia Rodriguez Cholesterol in HDL [Mass/Vol] 39 mg/dL Critically low 40-60 [facility] Comment on above: Performed By: #### L IVER, LIPID, BMP ####[facility] [address] [id number] Rodriguez Cholesterol in LDL [Mass/Vol] 70.8 mg/dL Normal [facility] Comment on above: Performed By: #### L IVER, LIPID, BMP ####[facility] [address] [address]DrKlaudia Rodriguez Cholesterol.total/Chol esterol in HDL [Mass ratio] 3.7 {ratio} Normal [facility] Comment on above: Performed By: #### L IVER, LIPID, BMP ####[facility] [address] [address]Dr. Joaquín Rodriguez HDL NORMAL > or = 60 mg/dl - LOW CARDIOVASCULAR RISK <40 mg/dl - HIGH CARDIOVASCULAR RISK Normal [facility] Comment on above: Performed By: #### L IVER, LIPID, BMP ####[facility] [address] [id number]. Joaquín Rodriguez LDL CALC NORMAL SEE BELOW Normal [facility] Comment on above: Result Comment: <100 mg/dl OPTIMAL 100 - 129 mg/dl NEAR OR ABOVE OPTIMAL 130 - 159 mg/dl BORDERLINE HIGH 160 - 189 mg/dl HIGH >190 mg/dl VERY HIGH Performed By: #### L IVER, LIPID, BMP ####[facility] [address] [id number]. Joaquín Rodriguez Triglyceride [Mass/Vol] 176 mg/dL Critically high <=150 [facility] Comment on above: Performed By: #### L IVTEN, LIPID, BMP ####[facility] [address] [address]Dr. Joaquín Rodriguez VLDL CALC 35.2 mg/dL Normal [facility] Comment on above: Performed By: #### L IVER, LIPID, BMP ####[facility] [address] [address]Dr. Joaquín Rodriguez LIVER PROFILEon 11-26-2022 Albumin [Mass/Vol] 3.9 g/dL Normal 3.4-5.0 [facility] Comment on above: Performed By: #### L IVER, LIPID, BMP ####[facility] [address] [address]Dr. Joaquín Rodriguez Albumin/Globulin [Mass ratio] 1.0 {ratio} Normal [facility] Comment on above: Performed By: #### L IVER, LIPID, BMP ####[facility] [address] [address]Dr. Joaquín Rodriguez ALP [Catalytic activity/Vol] 91 U/L Normal 46-116 [facility] Comment on above: Performed By: #### L IVER, LIPID, BMP ####[facility] [address] [id number]. Joaquín Rodriguez ALT [Catalytic activity/Vol] 15 U/L Critically low 16-63 [facility] Comment on above: Performed By: #### L IVER, LIPID, BMP ####[facility] [address] [address]Dr. Joaquín Rodriguez AST [Catalytic activity/Vol] 29 U/L Normal 15-37 [facility] Comment on above: Performed By: #### L IVER, LIPID, BMP ####[facility] [address] [address]Dr. Joaquín Rodriguez BILI, CONJUGATED 0.2 mg/dL Normal 0.0-0.2 [facility] Comment on above: Performed By: #### L IVTEN, LIPID, BMP ####[facility] [address] [address]Dr. Joaquín Rodriguez Bilirubin [Mass/Vol] 0.7 mg/dL Normal 0.2-1.0 [facility] Comment on above: Performed By: #### L IVER, LIPID, BMP ####[facility] [address] [address]Dr. Joaquín Rodriguez Globulin (S) [Mass/Vol] 3.8 g/dL Normal [facility] Comment on above: Performed By: #### L IVER, LIPID, BMP ####[facility] [address] [address]Dr. Joaquín Rodriguez Protein [Mass/Vol] 7.7 g/dL Normal 6.4-8.2 [facility] Comment on above: Performed By: #### L IVER, LIPID, BMP ####[facility] [address] [address]Dr. Joaquín Rodriguez MICROALBUMIN, RAND URon 05-0 mALB 3.5 mg/L Normal <=30.0 [facility] Comment on above: Performed By: #### M ALBR #### [facility] [address] [address] [address] Joaquín Rodriguez PROF CHEM 8 (BAS METB)on Anion gap [Moles/Vol] 10.8 mmol/L Normal [facility] Comment on above: Performed By: #### L IVER, LIPID, BMP ####[facility] [address] [address]Dr. Joaquín Rodriguez Calcium [Mass/Vol] 9.1 mg/dL Normal 8.5-10.1 [facility] Comment on above: Performed By: #### L IVER, LIPID, BMP ####[facility] [address] [address]Dr. Joaquín Rodriguez Chloride [Moles/Vol] 103 mmol/L Normal 98-107 [facility] Comment on above: Performed By: #### L IVER, LIPID, BMP ####[facility] [address] [address]Dr. Joaquín Rodriguez CO2 [Moles/Vol] 29.7 mmol/L Normal 21.0-32.0 [facility] Comment on above: Performed By: #### L IVER, LIPID, BMP ####[facility] [address] [place], [place] [address]Dr. Joaquín Rodriguez Creatinine [Mass/Vol] 0.97 mg/dL Normal 0.70-1.30 [facility] Comment on above: Performed By: #### L IVER, LIPID, BMP ####[facility] [address] [place], [place] [address]Dr. Joaquín Rodriguez EGFR-AF TONGAN >60 Normal >=60 [facility] Comment on above: Performed By: #### L IVER, LIPID, BMP ####[facility] [address] [place], [place] [address]Dr. Joaquín Rodriguez EGFR-NON AF TONGAN >60 Normal >=60 [facility] Comment on above: Performed By: #### L IVER, LIPID, BMP ####[facility] [address] [place], [place] [address]Dr. Joaquín Rodriguez Glucose [Mass/Vol] 261 mg/dL Critically high 74-[address] [facility] Comment on above: Performed By: #### L IVER, LIPID, BMP ####[facility] [address] [place], [place] [address]Dr. Yilan Rodriguez Potassium [Moles/Vol] 4.5 mmol/L Normal 3.5-5.1 [facility] Comment on above: Performed By: #### L IVTEN LIPID, BMP ####[facility] [address], [place] [address]Uw. Joaquín Rodriguez Sodium [Moles/Vol] 139 mmol/L Normal 136-145 [facility] Comment on above: Performed By: #### L IVTEN LIPID, BMP ####[facility] [address] [place], [place] [address]Hw. Joaquín Rodriguez Urea nitrogen [Mass/Vol] 16.0 mg/dL Normal 7.0-18.0 [facility] Comment on above: Performed By: #### L ZENY LIPID, BMP ####[facility] [address] [place], [place] [address]Cs. Joaquín Rodriguez Urea nitrogen/Creatinine [Mass ratio] 16.5 mg/mg Normal [facility] Comment on above: Performed By: #### L ZENY LIPID, BMP ####[facility] [address], [place] [address]Ge. Joaquín Rodriguez MR Brain WO contraston 06-20 IMPRESSION: No acute findings. No evidence of acute infarction, intracranial hemorrhage or intracranial mass lesion. String Cutter: BIRGIT Transcribe Date/Time: Jun 20 2022 1:55P Dictated by : ANTHONY JONES MD This examination was interpreted and the report reviewed and electronically signed by: ANTHONY JONES MD on Jun 20 2022 2:02PM [facility] DIVISION OF RADIOLOGY * * *Final Report* * * DATE OF EXAM: Jun 20 2022 1:26PM [facility] 0294 - MRI BRAIN WO [...] tissues are unremarkable. DIVISION OF RADIOLOGY Provider, [facility] - 06/20/2022 * * *Final Report* * * DATE OF EXAM: Jun 20 2022 1:26PM LN 0294 - MRI BRAIN WO IVCON / [...] infarction, intracranial hemorrhage or intracranial mass lesion. String Cutter: PSCGloria Transcribe Date/Time: Jun 20 2022 1:55P Dictated by : ANTHONY JONES MD This examination was interpreted and the report reviewed and electronically signed by: ANTHONY JONES MD on Jun 20 2022 2:02PM EST [facility] Radiology Study observation (narrative) [facility] MR Brain WO contrastOrdered By: [facility]cf Provider on 06-20-2022 [facility] POINT OF CARE GLUCOSEon 04-29 Glucose [Mass/Vol] 180 mg/dL Critically high 74-106 [facility] Comment on above: Performed By: #### P OCGLUC ####[facility] [address], [place] [address]Ly. Joaquín Rodriguez Covid-19 PCR (CVDTBH)on 04-29 SARS-CoV-2 (COVID-19) RNA JAS+probe Ql (Unsp spec) Not detected Normal NOT DETECTED [facility] Comment on above: Result Comment: This test is not yet approved or cleared by the [place] FDA. When there are no FDA-approved or cleared tests available, and other criteria are met, FDA can make tests available under an emergency access mechanism called an Emergency Use Authorization (EUA). The EUA for this test is supported by the Traveling Plant Operator of Health and Human Service's (HHS's) declaration [...] consistent with SARS-CoV-2. Performed By: #### [facility] #### [facility] [address] [address] [address] Joaquín Rodriguez GLYCOHEMOGLOBIN A1Con 2021 ADA RECOMMENDATION SEE BELOW Normal [facility] Comment on above: Result Comment: ADA RECOMMENDED LIMIT 4.0 - 6.0 ADA THERAPEUTIC TARGET < 7.0 ACTION SUGGESTED > 7.0 Performed By: #### A 1C #### [facility] [address] [address] [address] Joaquín Rodriguez Glucose [Mass/Vol] 212 mg/dL Normal [facility] Comment on above: Performed By: #### A 1C #### [facility] [address] [place] [address] Dr. Joaquín Rodriguez HbA1c (Bld) [Mass fraction] 9.0 % Critically high 4.5-6.2 [facility] Comment on above: Performed By: #### A 1C #### [facility] [address] [address] [address] Joaquín Rodriguez Auth for Release of Medical Recordson 11-21-2020 Auth for Release of Medical Records [id number] #1.00CD:127 Normal [facility] Dermatopathologyon 0 Dermatopathology [facility] Dermatopathology Laboratory [address] [place] [id number] DERMATOPATHOLOGY REPORT Name:HERRERA WETZEL [facility] Rec #. [id number] Location: [facility] Date of Procedure: 03/22/2020 Race: [...] None Electronically Signed Out By NADER GALO MD/[facility] By the signature on this report, the individual or group listed as making the Final Interpretation/Diagn osis certifies that they have reviewed this case. Clinical History: Malignant melanoma. Excision. ([facility]) Specimens Submitted As: A: SKIN, RIGHT SUPERIOR LATERAL UPPER BACK Gross Description: Received in formalin is one lozano-brown piece of skin measuring 56 x 21 x 6 mm. The specimen is inked and embedded in toto in four blocks. The tips are in Block 1. mlz/03/23/2020 Normal [facility] Comment on above: Performed By: #### D #### Dermatopathology Dermatopathologyon 0 Dermatopathology Pathologist: NADER GALO MD Date of Procedure: 02/10/2020 Date Received: 02/10/2020 Submitting Physician: SAÚL JHAVERI MD Location: [facility] Copy To/Referring/Attendi ng: HENRIK WHALEN DO FINAL DIAGNOSIS 4 SLIDES, [facility], #[id number] (BX: 01/06/2020) SKIN, RIGHT SUPERIOR LATERAL UPPER [...] melanocytes. The melanocytes stain with antibodies against [place]-1 and SOX-10. The deep margin focally transects the atypical melanocytes. Electronically Signed Out by NADER GALO M.D. CANCER SUMMARY REPORT A. 4 SLIDES, [facility], #[id number] (BX: 01/06/2020): Procedure: Biopsy, shave Specimen Laterality: [...] As: A: 4 SLIDES, [facility], #[id number] (BX: 01/06/2020) Gross Description: Received for consultation from [facility] are four slides labeled [id number] (BX: 01/06/2020) along with the corresponding pathology report. Slide/Block Description 4 SLIDES, [id number]. Keep Slides: N Slides Returned: N Personal Consult: N Normal [facility] Comment on above: Performed By: #### D #### Dermatopathology Vital Signs Date Time Vital Sign Value Performing Clinician Facility 03-03-2025 10:30-0400 Body height 180.3 cm Nathan Bolton MD Work Phone: [facility] 03-03-2025 10:30-0400 Body mass index (BMI) [Ratio] 21.9 kg/m2 Nathan Botlon MD Work Phone: [facility] 03-03-2025 10:30-0400 Body temperature 97.3 [degF] Nathan Bolton MD Work Phone: [facility] 03-03-2025 10:30-0400 Body weight 71.22 kg Nathan Bolton MD Work Phone: [facility] 03-03-2025 10:30-0400 Diastolic blood pressure 86 mm[Hg] Nathan Bolton MD Work Phone: [facility] 03-03-2025 10:30-0400 Heart rate 93 /min Nathan Bolton MD Work Phone: [facility] 03-03-2025 10:30-0400 Respiratory rate 18 /min Nathan Bolton MD Work Phone: [facility] 03-03-2025 10:30-0400 SaO2% (BldA) [Mass fraction] 98 % Nathan Bolton MD Work Phone: [facility] 03-03-2025 10:30-0400 Systolic blood pressure 142 mm[Hg] Nathan Bolton MD Work Phone: [facility] 01-27-2025 13:07-0400 Body height 180.3 cm Ayaz Santo DPM Work Phone: [facility] 01-27-2025 13:07-0400 Body mass index (BMI) [Ratio] 21.9 kg/m2 Ayaz Santo DPM Work Phone: [facility] 01-27-2025 13:07-0400 Body weight 71.22 kg Aayz Santo DPM Work Phone: [facility] 11-30-2024 10:18-0400 Body height 180.3 cm Nathan Bolton MD Work Phone: [facility] 11-30-2024 10:18-0400 Body mass index (BMI) [Ratio] 21.9 kg/m2 Nathan Bolton MD Work Phone: [facility] 11-30-2024 10:18-0400 Body temperature 97.3 [degF] Nathan Bolton MD Work Phone: [facility] 11-30-2024 10:18-0400 Body weight 71.22 kg Nathan Bolton MD Work Phone: [facility] 11-30-2024 10:18-0400 Diastolic blood pressure 58 mm[Hg] Nathan Bolton MD Work Phone: [facility] 11-30-2024 10:18-0400 Heart rate 90 /min Nathan Bolton MD Work Phone: [facility] 11-30-2024 10:18-0400 Respiratory rate 20 /min Nathan Bolton MD Work Phone: [facility] 11-30-2024 10:18-0400 SaO2% (BldA) [Mass fraction] 99 % Nathan Bolton MD Work Phone: [facility] 11-30-2024 10:18-0400 Systolic blood pressure 120 mm[Hg] Nathan Bolton MD Work Phone: [facility] 10-21-2024 10:39-0400 Body height 180.3 cm Ayaz Santo DPM Work Phone: [facility] 10-21-2024 10:39-0400 Body mass index (BMI) [Ratio] 20.75 kg/m2 Ayaz Santo DPM Work Phone: [facility] 10-21-2024 10:39-0400 Body weight 67.5 kg Ayaz Santo DPM Work Phone: [facility] 09-07-2024 11:24-0500 Body mass index (BMI) [Ratio] 21.31 kg/m2 Nathan Bolton MD Work Phone: [facility] 09-07-2024 11:24-0500 Body temperature 97 [degF] Nathan Bolton MD Work Phone: [facility] 09-07-2024 11:24-0500 Body weight 69.31 kg Nathan Bolton MD Work Phone: [facility] 09-07-2024 11:24-0500 Diastolic blood pressure 88 mm[Hg] Nathan Bolton MD Work Phone: [facility] 09-07-2024 11:24-0500 Heart rate 94 /min Nathan Bolton MD Work Phone: [facility] 09-07-2024 11:24-0500 SaO2% (BldA) [Mass fraction] 98 % Nathan Bolton MD Work Phone: [facility] 09-07-2024 11:24-0500 Systolic blood pressure 130 mm[Hg] Nathan Bolton MD Work Phone: [facility] 07-07-2024 09:36-0500 Body height 180.3 cm Ayaz Santo DPM Work Phone: [facility] 07-07-2024 09:36-0500 Body mass index (BMI) [Ratio] 22.04 kg/m2 Ayaz Santo DPM Work Phone: [facility] 07-07-2024 09:36-0500 Body weight 71.67 kg Ayaz Santo DPM Work Phone: [facility] 06-18-2024 09:44-0500 Diastolic blood pressure 75 mm[Hg] Donald Danicatkolexiki DO Work Phone: [facility] 06-18-2024 09:44-0500 Heart rate 93 /min Donald Danicatkolexiki DO Work Phone: [facility] 06-18-2024 09:44-0500 Systolic blood pressure 131 mm[Hg] Donald Danicatkolexiki DO Work Phone: [facility] 06-01-2024 10:20-0500 Body height 180.3 cm Nathan Bolton MD Work Phone: [facility] 06-01-2024 10:20-0500 Body mass index (BMI) [Ratio] 22.04 kg/m2 Nathan Bolton MD Work Phone: [facility] 06-01-2024 10:20-0500 Body temperature 97.11 [degF] Nathan Bolton MD Work Phone: [facility] 06-01-2024 10:20-0500 Body weight 71.67 kg Nathan Bolton MD Work Phone: [facility] 06-01-2024 10:20-0500 Diastolic blood pressure 64 mm[Hg] Nathan Bolton MD Work Phone: [facility] 06-01-2024 10:20-0500 Heart rate 94 /min Nathan Bolton MD Work Phone: [facility] 06-01-2024 10:20-0500 Respiratory rate 18 /min Nathan Bolton MD Work Phone: [facility] 06-01-2024 10:20-0500 SaO2% (BldA) [Mass fraction] 97 % Nathan Bolton MD Work Phone: [facility] 06-01-2024 10:20-0500 Systolic blood pressure 128 mm[Hg] Nathan Bolton MD Work Phone: [facility] 05-25-2024 14:06-0400 Body height 180.3 cm Yobany Gonzales MD Work Phone: [facility] 05-25-2024 14:06-0400 Body mass index (BMI) [Ratio] 22.32 kg/m2 Yobany Gonzales MD Work Phone: [facility] 05-25-2024 14:06-0400 Body weight 72.58 kg Yobany Gonzales MD Work Phone: [facility] 05-25-2024 14:06-0400 Diastolic blood pressure 73 mm[Hg] Yobany Gonzales MD Work Phone: [facility] 05-25-2024 14:06-0400 Systolic blood pressure 128 mm[Hg] Yobany Gonzales MD Work Phone: [facility] 03-23-2024 10:07-0400 Body height 180.3 cm Ayaz Santo DPM Work Phone: [facility] 03-23-2024 10:07-0400 Body mass index (BMI) [Ratio] 22.32 kg/m2 Ayaz Santo DPM Work Phone: [facility] 03-23-2024 10:07-0400 Body weight 72.58 kg Ayaz Santo DPM Work Phone: [facility] 12-26-2023 13:04-0400 Diastolic blood pressure 70 mm[Hg] Donald Alberts DO Work Phone: [facility] 12-26-2023 13:04-0400 Heart rate 74 /min Donald Alberts DO Work Phone: [facility] 12-26-2023 13:04-0400 Systolic blood pressure 109 mm[Hg] Donald Alberts DO Work Phone: [facility] 09-10-2023 11:47-0500 Body height 180.3 cm Nathan Bolton MD Work Phone: [facility] 09-10-2023 11:47-0500 Body mass index (BMI) [Ratio] 23.01 kg/m2 Nathan Bolton MD Work Phone: [facility] 09-10-2023 11:47-0500 Body temperature 97.5 [degF] Nathan Bolton MD Work Phone: [facility] 09-10-2023 11:47-0500 Body weight 74.84 kg Nathan Bolton MD Work Phone: [facility] 09-10-2023 11:47-0500 Diastolic blood pressure 70 mm[Hg] Nathan Bolton MD Work Phone: [facility] 09-10-2023 11:47-0500 Heart rate 89 /min Nathan Bolton MD Work Phone: [facility] 09-10-2023 11:47-0500 SaO2% (BldA) [Mass fraction] 99 % Nathan Bolton MD Work Phone: [facility] 09-10-2023 11:47-0500 Systolic blood pressure 130 mm[Hg] Nathan Bolton MD Work Phone: [facility] 12-05-2022 13:27-0400 Body weight 74.84 kg Donald Alberts DO Work Phone: [facility] 12-05-2022 13:27-0400 Diastolic blood pressure 72 mm[Hg] Donald Alberts DO Work Phone: [facility] 12-05-2022 13:27-0400 Heart rate 61 /min Donald Alberts DO Work Phone: [facility] 12-05-2022 13:27-0400 SaO2% (BldA) [Mass fraction] 99 % Donald Alberts DO Work Phone: [facility] 12-05-2022 13:27-0400 Systolic blood pressure 127 mm[Hg] Donald Alberts DO Work Phone: [facility] 06-06-2022 16:21-0500 Body height 180.3 cm Donald Alberts DO Work Phone: [facility] 06-06-2022 16:21-0500 Body weight 74.39 kg Donald Alberts DO Work Phone: [facility] 06-06-2022 16:21-0500 Diastolic blood pressure 75 mm[Hg] Donald Alberts DO Work Phone: [facility] 06-06-2022 16:21-0500 Heart rate 69 /min Donald Alberts DO Work Phone: [facility] 06-06-2022 16:21-0500 SaO2% (BldA) [Mass fraction] 100 % Donald Alberts DO Work Phone: [facility] 06-06-2022 16:21-0500 Systolic blood pressure 135 mm[Hg] Donald Alberts DO Work Phone: [facility] Encounters Encounter Date Encounter Type Care Provider Facility Start: 03-25-2025 End: 03-25-2025 Refill Nathan Bolton MD Work Phone: [facility] Comment on above: Type 2 diabetes elena itus with hyperglycemia, without long-term current use of insulin ([facility]) Start: 03-15-2025 End: 03-15-2025 ambulatory Elan Jenkins MD Facility: [facility] Start: 03-03-2025 End: 03-03-2025 Bamboo flowsheet Nathan Bolton MD Work Phone: [facility] Start: 03-03-2025 End: 03-03-2025 Husam flowsheet Nathan Bolton MD Work Phone: [facility] Start: 03-03-2025 End: 03-03-2025 Office outpatient visit 25 minutes Nathan Bolton MD Work Phone: [facility] Comment on above: Type 2 diabetes elena itus with hyperglycemia, without long-term current use of insulin (HCC) (Primary Dx); Essential hypertension, benign ; Parkinson disease, symptomatic (HCC); Degeneration of intervertebral disc of lumbar region with discogenic back pain; Dysphagia, unspecified type Start: 03-03-2025 End: 03-03-2025 ambulatory NATHAN BOLTON Not Available Start: 01-27-2025 End: 01-27-2025 Bamboo flowsheet Ayaz Santo DPM Work Phone: [facility] Start: 01-27-2025 End: 01-27-2025 Bamboo flowsheet Ayaz Santo DPM Work Phone: [facility] Start: 01-27-2025 End: 01-27-2025 Patient encounter procedure Ayaz Santo DPM Work Phone: [facility] Comment on above: Dermatophytosis of n ail (Primary Dx); Dystrophic nail; Pain around toenail, right foot; Pain around toenail, left foot Start: 01-27-2025 End: 01-27-2025 ambulatory AYAZ SANTO Not Available Start: 12-17-2024 End: 12-17-2024 ambulatory NATHAN BOLTON Facility:[facility] Start: 11-30-2024 End: 11-30-2024 Bamboo flowsheet Nathan Bolton MD Work Phone: [facility] Start: 11-30-2024 End: 11-30-2024 Bamboo flowsheet Nathan Bolton MD Work Phone: [facility] Start: 11-30-2024 End: 11-30-2024 Office outpatient visit 25 minutes Nathan Bolton MD Work Phone: [facility] Comment on above: Type 2 diabetes elena itus with hyperglycemia, without long-term current use of insulin (CMS/HCC) (Primary Dx); Essential hypertension, benign (CMS/HCC); Degeneration of intervertebral disc of lumbar region with discogenic back pain; Parkinson disease, symptomatic (CMS/HCC); Acute cystitis without hematuria Start: 11-30-2024 End: 11-30-2024 ambulatory NATHAN BOLTON Not Available Start: 11-06-2024 End: 11-06-2024 Clinisync Result Encounter Nathan Bolton MD Work Phone: [facility] External Department Unsolicited Start: 11-06-2024 End: 11-06-2024 Clinisync Result Encounter Nathan Bolton MD Work Phone: [facility] External Department Unsolicited Start: 10-21-2024 End: 10-21-2024 Bamboo flowsheet Ayaz Santo DPM Work Phone: [facility] Start: 10-21-2024 End: 10-21-2024 Bamboo flowsheet Ayaz Santo DPM Work Phone: [facility] Start: 10-21-2024 End: 10-21-2024 Patient encounter procedure Ayaz Santo DPM Work Phone: [facility] Comment on above: Dermatophytosis of n ail (Primary Dx); Dystrophic nail; Pain around toenail, right foot; Pain around toenail, left foot Start: 10-21-2024 End: 10-21-2024 ambulatory AYAZ SANTO Not Available Start: 10-02-2024 End: 10-02-2024 ambulatory NATHAN BOLTON Not Available Start: 09-12-2024 End: 09-15-2024 Refill Donald Alberts DO Work Phone: Neurology Comment on above: Refill Request Start: 09-07-2024 End: 09-07-2024 Bamboo flowsheet Nathan Bolton MD Work Phone: [facility] Start: 09-07-2024 End: 09-07-2024 Bamboo flowsheet Nathan Bolton MD Work Phone: [facility] Start: 09-07-2024 End: 09-07-2024 Office outpatient visit 15 minutes Nathan Bolton MD Work Phone: [facility] Comment on above: Strain of calf muscl e, subsequent encounter (Primary Dx) Start: 09-07-2024 End: 09-07-2024 ambulatory NATHAN BOLTON Not Available Start: 07-14-2024 End: 07-14-2024 Telephone encounter Donald Alberts DO Work Phone: Neurology Start: 07-07-2024 End: 07-07-2024 Bamboo flowsheet Ayaz Santo DPM Work Phone: [facility] Start: 07-07-2024 End: 07-07-2024 Bamboo flowsheet Ayaz Santo DPM Work Phone: [facility] Start: 07-07-2024 End: 07-07-2024 Patient encounter procedure Ayaz Santo DPM Work Phone: [facility] Comment on above: Dermatophytosis of n ail (Primary Dx); Dystrophic nail; Pain around toenail, right foot; Pain around toenail, left foot Start: 07-07-2024 End: 07-07-2024 ambulatory AYAZ SANTO Not Available Start: 06-29-2024 ambulatory NATHAN BOLTON Facility :[facility] Start: 06-19-2024 End: 06-19-2024 Telephone encounter Donald Alberts DO Work Phone: Neurology Start: 06-18-2024 End: 06-18-2024 Telephone encounter Donald Alberts DO Work Phone: Neurology Start: 06-18-2024 End: 06-18-2024 ambulatory NATHAN BOLTON Facility:[facility] Start: 06-18-2024 End: 06-18-2024 Office outpatient visit 15 minutes Donald Alberts DO Work Phone: Neurology Comment on above: Parkinson's disease without dyskinesia or fluctuating manifestations (HCC) (Primary Dx); Hypokinetic Parkinsonian dysphonia (HCC) Start: 06-08-2024 End: 06-08-2024 Clinisync Result Encounter Nathan Bolton MD Work Phone: [facility] External Department Unsolicited Start: 06-08-2024 End: 06-08-2024 Clinisync Result Encounter Nathan Bolton MD Work Phone: [facility] External Department Unsolicited Start: 06-08-2024 End: 06-08-2024 Orders Only Nathan Bolton MD Work Phone: [facility] Comment on above: Type 2 diabetes elena itus with hyperglycemia, without long-term current use of insulin (CMS/HCC) (Primary Dx) Start: 06-01-2024 End: 06-01-2024 Bamboo flowsheet Nathan Bolton MD Work Phone: [facility] Start: 06-01-2024 End: 06-01-2024 Bamboo flowsheet Nathan Bolton MD Work Phone: [facility] Start: 06-01-2024 End: 06-01-2024 Office outpatient visit 25 minutes Nathan Bolton MD Work Phone: [facility] Comment on above: Type 2 [...] 15 minutes Yobany Gonzales MD Work Phone: [facility] Comment on above: Elevated PSA (Primar y Dx); Hematuria, gross Start: 05-25-2024 End: 05-25-[address] [facility] Start: 05-18-2024 End: 05-18-2024 ambulatory YOBANY GONZALES [facility] Start: 03-23-2024 End: 03-23-2024 Patient encounter procedure Ayaz Santo DPM Work Phone: [facility] Comment on above: Dermatophytosis of n ail (Primary Dx); Dystrophic nail; Pain around toenail, right foot; Pain around toenail, left foot Start: 03-23-2024 End: 03-23-2024 ambulatory AYAZ SANTO Not Available Start: 12-26-2023 End: 12-26-2023 ambulatory NATHAN BOLTON Facility:[facility] Start: 12-26-2023 End: 12-26-2023 Office outpatient visit 15 minutes Donald Alberts DO Work Phone: Neurology Comment on above: Parkinson's disease without dyskinesia or fluctuating manifestations (HCC) (Primary Dx); Sialorrhea; PD (Parkinson's disease) (HCC) Start: 11-03-2023 Refill Donald xavier DO Work Phone: Neurology Comment on above: Refill Request Start: 09-10-2023 Bamboo flowsheet Nathan Bolton MD Work Phone: [facility] Start: 09-10-2023 Bambo flowsheet Nathan Bolton MD Work Phone: [facility] Start: 09-10-2023 End: 09-10-2023 Office outpatient visit 15 minutes Nathan Bolton MD Work Phone: [facility] Comment on above: Epigastric abdominal pain (Primary Dx) Start: 06-14-2023 End: 06-14-2023 ambulatory DONALD ALBERTS Facility:[facility] Start: 03-16-2023 ambulatory Donald xavier DO Work Phone: Neurology Comment on above: Botox for excessive saliva for Herrera Sneedt Start: 02-19-2023 Refill Donald xavier DO Work Phone: Neurology Comment on above: Refill Request Start: 12-26-2022 End: 12-26-[address] DOCTOR NICOLE Facility:[facility] Start: 12-13-2022 End: 12-13-2022 ambulatory JOANNE TALAVERA . Facility:[facility] Start: 12-05-2022 End: 12-05-2022 ambulatory DONALD ALBERTS Facility:[facility] Start: 12-05-2022 End: 12-05-2022 Patient encounter procedure Donald Alberts DO Work Phone: Neurology Comment on above: PD (Parkinson's dise ase) ([facility]) (Primary Dx); Sialorrhea; Hypophonia Start: 11-26-2022 End: 11-27-[address] NATHAN BOLTON Facility:[facility] Start: 10-21-2022 ambulatory Donald xavier DO Work Phone: Neurology Comment on above: Herrera Ponce ons patient contraindicated medicines Start: 09-27-2022 End: 09-27-2022 ambulatory SANIYA GARZON Facility:[facility] Start: 09-10-2022 Refill Donald xavier DO Work Phone: [facility] Comment on above: Refill Request Start: 08-30-2022 End: 08-30-2022 ambulatory SANIYA GARZON Facility:[facility] Start: 06-27-2022 End: 06-28-[address] NIKHIL GUAJARDO . Facility:[facility] Start: 06-22-2022 Telephone encounter Donald gomez DO Work Phone: [facility] Comment on above: Results (MRI NL) Start: 06-20-2022 End: 06-20-2022 Subsequent hospital visit by physician Mri [facility] Amanda (1.5t) Work Phone: Radiology Comment on above: PD (Parkinson's dise ase) ([facility]) [G20] Start: 06-06-2022 End: 06-06-2022 Patient encounter procedure Donald Alberts DO Work Phone: Neurology Comment on above: PD (Parkinson's dise ase) ([facility]) (Primary Dx); Dysarthria Start: 05-23-2022 Encounter for preprocedural laboratory examination DR NIKHIL GUAJARDO . [facility] Start: 05-22-2022 End: 05-22-[address] NIKHIL GUAJARDO . Facility:[facility] Start: 05-18-2022 End: 05-19-[address] NIKHIL GUAJARDO . Facility:[facility] Start: 05-18-2022 End: 05-19-2022 Encounter for preprocedural laboratory examination DR NIKHIL GUAJARDO . Facility:[facility] Start: 05-15-2022 End: 05-16-[address] NIKHIL GUAJARDO . Facility:[facility] Start: 05-09-2022 End: 05-10-[address] NATHAN BOLTON Facility:[facility] Procedures Date Procedure Procedure Detail Performing Clinician Start: 11-06-2024 MLR HEMOGLOBIN A1C Nathan Bolton MD Work Phone: Start: 06-08-2024 MLR HEMOGLOBIN A1C Nathan Bolton MD Work Phone: Start: 05-25-2024 Follow-up visit Follow-up YOBANY GONZALES Start: 06-20-2022 Mri brain brain stem w/o contrast material Donald Alberts DO Work Phone: Plan of Treatment Date Care Activity Detail Author Start: 05-27-2027 DTaP,Tdap and Td Vac cines (2 - Td or Tdap) DTaP,Tdap and Td Vaccines (2 - Td or Tdap) [facility] Start: 11-04-2026 Glaucoma screening Diabetes: R etinopathy Screening [facility] Start: 06-24-2026 [facility] Start: 09-30-2025 Glaucoma screening Diabetes: R etinopathy Screening [facility] Start: 06-02-2025 End: 06-02-2025 Patient encounter procedure 06/02/2025 1:15 PM EST Office Visit [facility] [address] [place] [address] [place] [address] Yobany Gonzales MD [facility] [place] [address] [facility] Start: 06-02-2025 End: 06-02-2025 Patient encounter procedure 06/02/2025 9:45 AM EST Office Visit [facility] [address] [place] [address] Nathan Bolton MD [address] [place] [address] [facility] Start: 05-25-2025 End: 04-25-2026 Prostatic specific antigen, diagnostic Prostatic specific antigen, diagnostic Lab Routine Elevated PSA Expected: 05/25/2025 (Approximate), Expires: 04/25/2026 [facility] Work Phone: Comment on above: Expected: 05/25/2025 (Approximate), Expires: 04/25/2026 Start: 05-12-2025 End: 05-12-2025 Patient encounter procedure [facility] Start: 03-29-2025 Influenza vaccination Influenza Vacc ine (#1) [facility] Start: 03-03-2025 End: 03-03-2025 Patient encounter procedure [facility] Comment on above: Arrived Start: 01-27-2025 End: 01-27-2025 Patient encounter procedure [facility] Comment on above: Arrived Start: 12-17-2024 End: 12-17-2024 Patient encounter procedure 12/17/2024 1:30 PM EDT Office Visit Neurology [address] [place] [address] Donald Alberts, DO [address] [place] [address] Parkinson's disease without dyskinesia or fluctuating manifestations (HCC) [G20.A1] Neurology Comment on above: Parkinson's disease without dyskinesia or fluctuating manifestations (HCC) [G20.A1] Start: 12-03-2024 Urine screening for protein Diabetes: Urine Protein Screening [facility] Start: 11-30-2024 End: 11-30-2024 Patient encounter procedure [facility] Comment on above: Arrived Start: 10-21-2024 End: 10-21-2024 Patient encounter procedure [facility] Comment on above: Arrived Start: 09-07-2024 End: 09-07-2024 Patient encounter procedure 09/07/2024 11:00 AM EST Office Visit [facility] [address] [place] [address] Nathan Bolton MD [address] [place] [address] Arrived [facility] Comment on above: Arrived Start: 07-29-2024 Advance Directive Discussion Advance Directive Discussion [facility] Start: 07-07-2024 End: 07-07-2024 Patient encounter procedure [facility] Comment on above: Arrived Start: 06-20-2024 DIABETES SCREEN DIABETES SCREEN [facility] Start: 06-20-2024 Diabetes Screening Diabetes Screenin g [facility] Start: 06-18-2024 End: 06-18-2024 Patient encounter procedure 06/18/2024 9:30 AM EST Office Visit Neurology [address] [place] [address] Donald Alberts, DO [address] [place] [address] Return in about 6 months (around 06/27/2024). Neurology Comment on above: Return in about 6 mo nths (around 06/27/2024). Start: 06-05-2024 Hemoglobin A1c measurement Maritza betes: Hemoglobin A1C [facility] Start: 06-01-2024 End: 06-01-2025 Hemoglobin A1c/Hemoglobin.total in Blood Hemoglobin A1c Lab Routine Type 2 diabetes mellitus with hyperglycemia, without long-term current use of insulin ([facility]) Expected: 06/01/2024 (Approximate), Expires: 06/01/2025 [facility] Work Phone: Comment on above: Expected: 06/01/2024 (Approximate), Expires: 06/01/2025 Start: 06-01-2024 End: 06-01-2024 [facility] Comment on above: Arrived Start: 05-20-2024 Adult BMI Screening Adult BMI Screen ing [facility] Start: 05-20-2024 Tobacco Screening Tobacco Screening [facility] Start: 03-29-2024 Covid-19 Vaccine ( season) Covid-19 Vaccine () [facility] Start: 03-29-2024 Influenza vaccination Influenza Vacc ine (#1) [facility] Start: 12-05-2023 End: 12-05-2023 Patient encounter procedure 12/05/2023 2:45 PM EDT Procedure Visit [facility] [address] [place] [id number] Ayaz Santo, [facility] [address] [place], [place] [id number] [facility] Start: 12-02-2023 End: 12-02-2023 Patient encounter procedure 12/02/2023 10:45 AM EDT Office Visit [facility] [address] [place] [address] Nathan Bolton MD [address] [place] [address] [facility] Start: 09-24-2023 Hemoglobin A1c measurement Maritza betes: Hemoglobin A1C [facility] Start: 09-10-2023 End: 09-10-2024 RF Upper gastrointestinal tract and Small bowel Single view W contrast PO FL upper GI double contrast w KUB Imaging Routine Epigastric abdominal pain Expected: 09/10/2023, Expires: 09/10/2024 [facility] Comment on above: Expected: 09/10/2023 , Expires: 09/10/2024 Start: 09-10-2023 End: 09-10-2024 US Gallbladder US gallbladder Imaging Routine Epigastric abdominal pain Expected: 09/10/2023, Expires: 09/10/2024 [facility] Work Phone: Comment on above: Expected: 09/10/2023 , Expires: 09/10/2024 Start: 09-10-2023 End: 09-10-2023 Patient encounter procedure 09/10/2023 11:45 AM EST Office Visit [facility] [address] [place] [address] Nathan Bolton MD [address] [place] [id number] Arrived [facility] Comment on above: Arrived Start: 07-29-2023 Advance Directive Discussion Advance Directive Discussion [facility] Start: 07-29-2023 Behavioral Health Screening Behavioral Health Screening [facility] Start: 03-29-2023 Covid-19 Vaccine ( season) Covid-19 Vaccine ( season) [facility] Start: 03-29-2023 Influenza vaccination INFLUENZA (#1) [facility] Start: 08-26-2022 COVID-19 VACCINE (6 - Pfizer series) COVID-19 VACCINE (6 - Pfizer series) [facility] Start: 07-29-2022 ADVANCE DIRECTIVE DISCUSSION ADVANCE DIRECTIVE DISCUSSION [facility] Start: 07-29-2022 DEPRESSION ASSESSMENT DEPRESSION ASS ESSMENT [facility] Start: 07-29-2021 ADVANCE DIRECTIVE DISCUSSION ADVANCE DIRECTIVE DISCUSSION [facility] Start: 07-29-2021 [facility]PRESSION [facility]MENT [facility] Start: 05-28-2017 Urine microalbumin profile DTa P,Tdap,Td Vaccine (1 - Tdap) [facility] Start: 2011 Fall Risk Screening Fall Risk Screen [facility] Start: 2011 PNEUMOCOCCAL: 65+ (1 - PCV) PNEUMOCOCCAL: 65+ (1 - PCV) [facility] Start: 2006 RSV Vaccine (1 - 1-d ose 60+ series) RSV Vaccine (1 - 1-dose 60+ series) [facility] Start: 1996 SHINGRIX VACCINE (1 of 2) FRIAS GRIX VACCINE (1 of 2) [facility] Start: 1991 COLOGUARD (FIT-DNA) COLOGUARD (FIT-D NA) [facility] Start: 1991 Colonoscopy COLONOSCOPY [facility] Start: 1991 COLORECTAL CANCER SCREENING COLORECTAL CANCER SCREENING [facility] Start: [address] [facility]: 1991 FECAL OCCULT BLOOD FECAL OCCULT BLOO D [facility] Start: 1991 SIGMOIDOSCOPY SIGMOIDOSCOPY Radha escoto [facility] Start: 1981 LIPID SCREEN LIPID SCREEN [facility] Start: 1965 Urine microalbumin profile DTAP,TDAP ,TD (1 - Tdap) [facility] Start: 1965 Urine screening for protein Diabetes: Urine Protein Screening [facility] Start: 1964 Anxiety Screening Anxiety Screening [facility] Start: 1964 Depression Screening Depression Scre ening [facility] Start: 1964 HEPATITIS C [facility] Start: 1964 Hepatitis C screening Hepatitis C [facility] Start: 1958 Depression Screening Depression Scre ening [facility] Start: 1956 Glaucoma screening Diabetes: R etinopathy Screening [facility] Start: 1946 Medicare Annual Well ness (AWV) Medicare Annual Wellness (AWV) [facility] Start: 1946 Medicare Annual Well ness Visit Medicare Annual Wellness Visit [facility] End: 07-06-2023 Mri brain brain stem w/o contrast material MRI BRAIN WO IVCON Radiology Routine PD (Parkinson's disease) (HCC) Dysarthria 1 Occurrences starting 06/06/2022 until 07/06/2023 [facility] Work Phone: Comment on above: 1 Occurrences starti ng 06/06/2022 until 07/06/2023 [facility] Immunizations Immunization Date Immunization Notes Care Provider Renetta durand 05-20-2024 influenza, high dose seasonal, preservative-free Ayaz Santo DPM Work Phone: [facility] 05-20-2024 influenza virus vacc ine, unspecified formulation Ayaz Santo DPM Work Phone: [facility] 05-13-2023 RSV, recombinant, pr otein subunit RSVpreF, adjuvant reconstitu, 120mcg/0.5mL, PF (Arexvy) Ayaz Santo DPM Work Phone: [facility] 04-22-2023 Influenza, Seasonal, Quadrivalent, Adjuvanted Nathan Bolton MD Work Phone: [facility] 04-22-2023 influenza virus vacc ine, unspecified formulation Ayaz Santo DPM Work Phone: [facility] 04-23-2022 Influenza, High-dose Seasonal, Quadrivalent, Preservative Free Nathan Bolton MD Work Phone: [facility] 04-27-2021 Influenza, Seasonal, Quadrivalent, Adjuvanted Nathan Bolton MD Work Phone: [facility] 05-05-2020 Influenza, Seasonal, Quadrivalent, Adjuvanted Nathan Bolton MD Work Phone: [facility] 05-18-2019 Influenza, injectabl e, Madin [place] Canine Kidney, preservative free, quadrivalent Nathan Bolton MD Work Phone: [facility] 11-20-2018 zoster vaccine recombinant Jade Bolton MD Work Phone: [facility] 05-13-2018 Seasonal trivalent influenza vaccine, adjuvanted, preservative free Nathan Bolton MD Work Phone: [facility] 02-17-2018 zoster vaccine recombinant Jade Bolton MD Work Phone: [facility] 09-06-2017 pneumococcal polysaccharide vaccine, 23 valent Nathan Bolton MD Work Phone: [facility] 05-27-2017 tetanus and diphther ia toxoids, adsorbed, preservative free, for adult use (5 Lf of tetanus toxoid and 2 Lf of diphtheria toxoid) Nathan Bolton MD Work Phone: [facility] 04-29-2017 influenza, high dose seasonal, preservative-free Nathan Bolton MD Work Phone: [facility] 05-30-2016 influenza, high dose seasonal, preservative-free Nathan Bolton MD Work Phone: [facility] 05-30-2016 pneumococcal conjuga te vaccine, 13 valent Nathan Bolton MD Work Phone: [facility] 06-08-2015 influenza, high dose seasonal, preservative-free Nathan Bolton MD Work Phone: [facility] Healthcare Payers Date Payer Category Payer Private Health Insurance 2020 Medicaid [employer] MEDICARE A DVANTAGE [id number] 2020 Medicare [id number] 2020 Medicare (Managed Care) [employer] [place] [id number] 2020 Medicare HMO [employer] MEDICARE [id number] 1959 Medicare [id number] 1946 Unknown [id number] 2.16.840.1.801166.3.579.2. 593 1946 Unknown [id number] 2.16.840.1.770940.3.579.2. 593 1946 Unknown [id number] 2.16.840.1.867018.3.579.2. 593 1946 Unknown [id number] 2.16.840.1.086328.3.579.2. 593 1946 Unknown [id number] 2.16.840.1.194241.3.579.2. 593 1946 Unknown [id number] 2.16.840.1.556545.3.579.2. 593 1946 Unknown [id number] 2.16.840.1.734676.3.579.2. 593 1946 Unknown [id number] 2.16.840.1.035807.3.579.2. 593 1946 Unknown [id number] 2.16.840.1.418588.3.579.2. 593 1946 Unknown [id number] 2.16.840.1.658036.3.579.2. 593 1946 Unknown [id number] 2.16.840.1.976352.3.579.2. 593 1946 Unknown [id number] 2.16.840.1.638992.3.579.2. 1286 1946 Unknown [id number] 2.16.840.1.392266.3.579.2. 1286 1946 Unknown [id number] 2.16.840.1.636932.3.579.2. 718 1946 Unknown [id number] 2.16.840.1.947468.3.579.2. 1259 1946 Unknown [id number] 2.16.840.1.608099.3.579.2. 1259 1946 Unknown [id number] 2.16.840.1.504470.3.579.2. 1259 1946 Unknown [id number] 2.16.840.1.439748.3.579.2. 1259 1946 Unknown [id number] 2.16.840.1.443094.3.579.2. 9 1946 Unknown [id number] 2.16.840.1.239619.3.579.2. 1259 1946 Unknown [id number] 2.16.840.1.154054.3.579.2. 1259 1946 Unknown [id number] 2.16.840.1.571733.3.579.2. 1259 1946 Unknown [id number] 2.16.840.1.698002.3.579.2. 1259 1946 Unknown [id number] 2.16.840.1.295071.3.579.2. 196 Social History Date Type Detail Facility Start: 03-27-2019 End: 02-04-2024 Tobacco smoking status NHIS Never smoked tobacco [facility] Start: 03-27-2019 End: 02-04-2024 Tobacco use and exposure Smokeless tobacco non-user [facility] Start: 10-14-2020 End: 03-03-2025 Alcohol intake Lifetime non-drinker (finding) [facility] Start: 03-27-2019 History SDOH Alcohol Frequency 1 [facility] Start: 1945 Sex Assigned At Male C [facility] Start: 05-27-2022 End: 06-06-2022 Exposure to SARS-CoV-2 (event) Not sure [facility] Start: 12-05-2022 End: 02-26-2025 History of Social function [facility] Start: 12-05-2022 End: 02-26-2025 Tobacco use panel [facility] Adult Depression Screening Assessment 0 [facility] Start: 03-30-2019 Gender identity Identifies as male gender (finding) [facility] How often to you hav e a drink containing alcohol? Never [facility] Within the last year , have [...] [facility] Start: 03-03-2015 Sex Male (finding) [facility] Start: 07-08-2021 Sexual orientation Heterosexual (fin zully) [facility] How often do you nee d to have someone help you when you read instructions, pamphlets, or other written material from your doctor or pharmacy [SILS] Sometimes [facility] NEGATED: Highlighted rowStart: MAURICIOF History of tobacco use Passive smoker [facility] Medical Equipment Procedure Code Equipment Code Equipment Origin al Text Equipment Identifier Dates once daily. [id number], [id number] Start: 12-15-2018 Comment on above: once daily. Clinical Notes 05-15-2022 to 03-03-2025 Nathan Bolton MD - 03/03/2025 2:52 PM Kit Bolton MD - 03/03/2025 2:51 PM EDLida Bolton MD - 03/03/2025 2:51 PM EDLida Bolton MD - 03/03/2025 2:51 PM EDTPatient Instructions Note Date & Type Note Facility 03-03-2025 History of Present illness Narrative Associated Problem(s): Type 2 diabetes mellitus with hyperglycemia, without long-term current use of insulin (HCC) BS elevated and increase glipizide. Stick to ADA diet and limit carbs. Associated Problem(s): Parkinson disease, symptomatic (HCC) Symptoms stable and follow with neurology. Associated Problem(s): Essential hypertension, benign BP normal and monitor PRN. Associated Problem(s): Dysphagia Notice problems swallowing and refer for speech bedside swallow eval and therapy. Associated Problem(s): DDD (degenerative disc disease), lumbar Pain worse and refer back to pain management. Increase activity and try to walk regularly. Use OTC PRN. Images from the original note were not included. Subjective Patient ID: Herrera Wetzel is a 79 y.o. male who presents for Follow-up (3m f/up/A1C up in the 9's) and Choking (Trouble swallowing). Follow up DM, HTN, back pain, and Parkinson's. Patient stable today. BS remains elevated and around 250-290. BS higher since having to stop jardiance and on januvia. A1C last month over 9. Tries to eat well and stick to ADA diet but frequent splurges. Denies signs of elevated BS such as polyuria, polyphagia or polydipsia. Checking BP PRN and typically controlled. BP normal today. Taking medication daily and tolerating without side effects. Denies feeling lightheaded or dizzy. Back pain worse. Increased pain in low back and across top hips. No radiation into gluteal region or down legs. Mild pain with standing and walking. Using OTC PRN which helps. Prior pain management and injections few years ago. Wants to return to pain management. Parkinson's stable. Still resting tremor and balance off. Slow gait but no falls. Following with neurology. In exercise class for Parkinson's. Developed problems swallowing. Previously in speech therapy and making progress but stopped after broke ribs. Notice cough with liquids and seems to have hard time swallowing. Review of Systems Constitutional: Negative for fatigue. [...] without long-term current use of insulin (HCC) - Primary BS elevated and increase glipizide. Stick to ADA diet and limit carbs. Relevant Medications glipiZIDE (Glucotrol) 10 MG tablet DDD (degenerative disc disease), lumbar Pain worse and refer back to pain management. Increase activity and try to walk regularly. Use OTC PRN. Relevant Orders Ambulatory referral to Pain Medicine Essential hypertension, benign BP normal and monitor PRN. Parkinson disease, symptomatic (HCC) Symptoms stable and follow with neurology. Dysphagia Notice problems swallowing and refer for speech bedside swallow eval and therapy. documented in this encounter [facility] 01-27-2025 History of Present illness Narrative Images from the original note were not included. Subjective Patient ID: Herrera Wetzel is a 79 y.o. male who presents for DM Foot Care (Established patient presents today for diabetic foot care. PCP: Dr. Bolton LV 11/30/24, A1C: 7.5, BS: 180-100). HPI Chief complaint: requests care of thickened, deformed and discolored toenails. Problematic/symptomatic primarily involving bilateral great toes. Chronic toenail deformity, multiple years duration. Mildly symptomatic; past 1-2 weeks; describing pressure discomfort with shoe gear; also [...] mild pain Do not crush, chew, or split., Disp: , Rfl: aspirin 81 MG EC tablet, Take 81 mg by mouth Daily, Disp: , Rfl: carbidopa-levodopa (Parcopa) 25-100 MG [...] 3 magnesium 250 MG tablet, Take by mouth, Disp: , Rfl: meloxicam (Mobic) 7.5 MG [...] (multivitamin) tablet, Take 1 tablet by mouth Daily, Disp: , Rfl: omeprazole (PriLOSEC) [address] capsule, TAKE 1 CAPSULE IN THE MORNING BEFORE A MEAL. DO NOT CRUSH OR CHEW, Disp: 90 capsule, Rfl: 3 oxyCODONE-acetaminophen (Percocet) 5-325 MG tablet, every 4 (four) hours if needed for severe pain, Disp: , Rfl: polyethylene glycol, PEG, 3350 (Miralax) 17 g packet, Take 17 g by mouth Daily, Disp: , Rfl: rasagiline (Azilect) 0.5 MG tablet, Take 1 mg by mouth Daily, Disp: , Rfl: simvastatin (Zocor) 40 MG [...] Mother Aida wetzel Vision loss Father Elvin Sneedt Sr Objective General assessment: Alert and oriented. [...] Ayaz Santo DPM documented in this encounter [facility] 01-27-2025 Instructions Ayaz Santo DPM - 01/27/2025 1:15 PM EDT As noted documented in this encounter [facility] 12-17-2024 Note HNO ID: [id number] Author: DONALD ALBERTS, DO Service: ? Author Type: Physician Type: Progress Notes Filed: 12/17/2024 14:53 Note Text: [facility] - FOLLOW UP EVALUATION Recording using [employer] software for draft documentation of the visit was discussed with the patient/authorized service liaison representative; all questions welcomed and answered. Patient/authorized service liaison representative agreed to proceed Nathan Bolton MD [address] [facility] [address] Dear Nathan Bolton MD: I had the pleasure of seeing Mr. Wetzel for follow-up today. As you know he is a 79 year old male with a history of PD since 2014. He is seen with his with daughter. Subjective Previous Plan- 06/18/2024 Visit: Continue current antiparkinsonian regimen as dosed. Rx for U-STEP Walking Stabilizer Walker Rx for speech therapy to focus on Tremaine Whitt[employer] ([employer]) Interested in clinical research? Not discussed Interval History: Herrera is a 79-year-old male with a history of Parkinson's disease, presenting for follow-up. He is accompanied by his , who provides additional history. Herrera was diagnosed with Parkinson's disease in 2014. Since July, he has experienced three falls, two of which required EMS transport. His reports that the falls are often preceded by episodes of freezing and occasional dizziness. She notes that the falls are becoming more common and attributes one incident to the layout of their home, which they have since rearranged to accommodate his needs. The most recent fall occurred when he turned to place a plate of cookies on a table. His expresses a desire to reduce the frequency of falls and has encouraged him to use a gait belt more consistently. He is currently taking Sinemet, which his believes helps control his tremors, particularly in his leg. She notes that if he is late taking a dose, the tremor becomes more pronounced. However, she acknowledges that the medication does not seem to address the freezing episodes or falls. He is also taking Azilect. His reports that he occasionally zones out, particularly when tired, but does not endorse hallucinations or vivid dreams. He is described as pretty spry in the mornings and does not require an extended-release medication overnight. He is actively participating in one-on-one physical therapy sessions twice a week in [place] and has previously engaged in voice therapy, which he plans to resume. He uses a U-Step walker, which he finds beneficial. His is considering enrolling him in [employer] classes at the [facility] in [place] to maintain his physical activity and social connections. He has a history of back pain managed with ablations and has a prescription for Percocet, which he uses as needed. He also uses atropine for drooling, which provides some relief. His has found that chewing mint or gum prompts him to swallow more frequently, further helping with drooling. His weight has stabilized after a previous loss; he has gained back 10 pounds and is increasing his protein intake. Movement Disorders Medications Schedule - as of [...] chair: Yes (mild) Tremors/Gait/Balance Shaking or tremors: Yes (slight) Walking and balance problems: Yes (moderate) Number of falls in the Last Month: 1 time past 4 weeks, 3 times in the last 3 months, plus UTI and Kidney stone Gait freezing: Yes (moderate) Autonomic/Pain Lightheadeness on standing: Yes (mild) Urinary problems: Yes (slight) Constipation problems: 0 (none) Pain and other sensations: Yes (slight) Speech/Swallowing Speech problems: Yes (moderate) Drooling: Yes (severe) Chewing and swallowing problems: Yes (slight) Sleep/Fatigue Sleep problems: Yes (mild) Daytime sleepiness: Yes (mild) Fatigue: Yes (slight) Mood/Behavior Depression: PHQ-9 Score: 7 usually representing mild (5-9) depression. Anxiety: JULIO C-7 Total Score: 2 usually representing no significant (0-4) anxiety. Finally, the following table shows the patient's overall global physical and mental health using the PROMIS scale: PROMIS-10 Flowsheet Row Office Visit from 12/17/2024 in Neurology Office Visit from 06/18/2024 in Neurology Global Physical Health T Score 39.8 42.3 Global Mental Health T Score 48.3 50.8 0-10 Standa (more content not included)... [facility] 11-30-2024 History of Present illness Narrative Associated Problem(s): Type 2 diabetes mellitus with hyperglycemia, without long-term current use of insulin (CMS/HCC) BS seems to be higher since starting januvia and monitor. A1C last month 7.5. Associated Problem(s): Parkinson disease, symptomatic (CMS/HCC) Symptoms [...] a 79 y.o. male who presents for Follow-up (6m f/up/Blood sugar numbers increasing. ) and UTI (Possible uti, started last week). Follow up DM, HTN, back pain, and Parkinson's. Patient feels well today. BS remains elevated and around 200-250. BS higher since having to stop jardiance. Tries to eat well and stick to [...] with neurology. In exercise class for Parkinson's. UTI Review of Systems Constitutional: Negative for fatigue. [...] use of insulin (CMS/HCC) - Primary BS seems to be higher since starting januvia and monitor. A1C last month 7.5. DDD (degenerative disc disease), lumbar Pain stable and walk regularly. Use OTC PRN. If worsens return to pain management. Essential hypertension, benign (CMS/HCC) BP normal and monitor PRN. Parkinson disease, symptomatic (CMS/HCC) Symptoms stable and follow with neurology. Acute cystitis without hematuria Relevant Medications nitrofurantoin, macrocrystal-monohydrate, (Macrobid) 100 MG capsule documented in this encounter [facility] 10-21-2024 History of Present illness Narrative Images [...] Hoang PRICE 10/02/24, A1C: 9.6 (05/2024), BS: 137). HPI [...] Ayaz Santo DPM documented in this encounter [facility] 10-21-2024 Instructions Ayaz Santo DPM - 10/21/2024 10:30 AM EDT As noted documented in this encounter [facility] 09-14-2024 Telephone encounter Note Last appt 06/18/24 [facility] Requested Prescriptions Pending Prescriptions Disp Refills carbidopa-levodopa (SINEMET) 25-100 mg per tablet 540 tablet 3 Sig: Take 2 tablets by mouth four times daily. [Every 3-hours] [facility] 09-14-2024 Miscellaneous Notes Last appt 06/18/24 [facility] Requested Prescriptions Pending Prescriptions Disp Refills carbidopa-levodopa (SINEMET) 25-100 mg per tablet 540 tablet 3 Sig: Take 2 tablets by mouth four times daily. [Every 3-hours] documented in this encounter [facility] 09-07-2024 History of Present illness Narrative Associated [...] 50 MG tablet documented in this encounter [facility] 07-14-2024 Telephone encounter Note Summary: ST POC 07/14/2024 S.T. POC received from [employer]. Dr. Alberts reviewed and signed. POC securely faxed with confirmation of receipt received. Sent for scanning. Kathleen Flanagan LPN July 14, 2024 1:25 PM [facility] 07-14-2024 Miscellaneous Notes Summary: ST POC 07/14/2024 S.T. POC received from [employer]. Dr. Alberts reviewed and signed. POC securely faxed with confirmation of receipt received. Sent for scanning. Kathleen Flanagan LPN July 14, 2024 1:25 PM documented in this encounter [facility] 07-07-2024 History of Present illness Narrative Images from the original note were not included. Subjective Patient ID: Herrera Wetzel is a 78 y.o. male who presents for Nail care (Herrera Wetzel is a 78 y.o. male who presents for DM Foot Care PCP: Dr. Bolton 06/01/2024, A1C: 9.2, BS: 167.SS 10.5). HPI [...] Mother Aida wetzel Vision loss Father Elvin Juan Sr Objective General assessment: Alert and oriented. [...] Ayaz Santo DPM documented in this encounter [facility] 07-07-2024 Instructions Ayaz Santo DPM - 07/07/2024 9:30 AM EST As noted documented in this encounter [facility] 06-19-2024 Telephone encounter Note Summary: in-step order 06/19/2024 Order sent via secured fax to [employer] at with confirmation of receipt received. Order also sent for scanning. Kathleen Flanagan LPN June 19, 2024 9:45 AM [facility] 06-19-2024 Miscellaneous Notes Summary: in-step order 06/19/2024 Order sent via secured fax to [employer] at with confirmation of receipt received. Order also sent for scanning. Kathleen Flanagan LPN June 19, 2024 9:45 AM documented in this encounter [facility] 06-18-2024 Note HNO ID: [id number] Author: ARISTEODONALD, DO Service: ? Author Type: Physician Type: Progress Notes Filed: 06/18/2024 10:18 Note Text: [facility] - FOLLOW UP EVALUATION Nathan Bolton MD [address] [place] [place] [address] Dear Nathan Bolton MD: I had the [...] Arm, BP Po (more content not included)... [facility] 06-18-2024 History of Present illness Narrative [facility] - FOLLOW UP EVALUATION Nathan Bolton MD [address] [facility] [address] Dear Nathan Bolton MD: I had the [...] Left pathological reflexes: Kirstin's absent. Coordination Right: [id number] normal. Rapid alternating movement normal.Left: [id number] normal. Rapid alternating movement normal. Gait Casual [...] for speech therapy to focus on T[employer] ([employer]) Interested in clinical research? Not discussed Updated Movement Disorders Medication Schedule: Medications 8A 11A 2P 5P Sinemet 25/100 2 2 2 2 Azilect 1mg 1 0 0 0 Return at or around: 12/16/24 Level of service : 10995 (20-29 min). Time spent 20 min on the day of service, which included preparing to see the patient, [id number] patient care, completing clinical documentation, obtaining and/or [...] Donald Alberts DO documented in this encounter [facility] 06-01-2024 History of Present illness Narrative Associated Problem(s): Type 2 diabetes mellitus with hyperglycemia, without long-term current use of insulin ([facility]) BS elevated and due for labs. If [...] follow with neurology. documented in this encounter [facility] 05-25-2024 History of Present illness Narrative Images from the original note were not included. [address] [place] [address] [facility] [id number] Patient: Herrera Wetzel Date of : 1945 [...] DDD (degenerative disc disease), lumbar Diabetes mellitus ([facility]) Diabetes mellitus type 2, controlled ([facility]) Dyslipidemia Elevated PSA Elevated PSA Hematuria Hyperlipidemia Hypertension Kidney stone Osteoarthritis Parkinson disease ([facility]) Skin cancer basal and melanoma Visual impairment Past Surgical History: Procedure Laterality Date APPENDECTOMY CARDIAC SURGERY 1988 cardiac cath-no stents CATARACT EXTRACTION BILATERAL W/ ANTERIOR VITRECTOMY Bilateral 08/2022, 09/2022 CYST REMOVAL hand CYSTOSCOPY BIOPSY BLADDER N/A 01/23/2021 Performed by Yobany Gonzales MD at [facility] CYSTOSCOPY INSERTION STENT URETER Bilateral 01/23/2021 Performed by Yobany Gonzales MD at [facility] CYSTOSCOPY RETROGRADE PYELOGRAM Bilateral 01/23/2021 Performed by Yobany Gonzales MD at [facility] CYSTOURETEROSCOPY DIAGNOSTIC Bilateral 01/23/2021 Performed by Yobany Gonzales MD at [facility] NEEDLE BIOPSY FUSION PROSTATE N/A 07/04/2021 Performed by Yobany Gonzales MD at [facility] SURGERY SKIN CANCER EXCISION MELANOMA ON [...] in the morning. Indications: high blood pressure. plparxea-aldu-GL-calcium &mins (THERAGRAN-M) 9 mg iron-400 mcg tablet [...] No interval gross hematuria. (pt does bruse/bleed easily--usp issue) ==== 12/21/2020 ==== history gross hematuria. [...] for your understanding. documented in this encounter [employer] 03-23-2024 History of Present illness Narrative Images [...] Mother Aida wetzel Vision loss Father Elvin Sneedt Sr Objective General assessment: Alert and oriented. [...] Ayaz Santo DPM documented in this encounter [facility] 03-23-2024 Instructions Ayaz Santo DPM - 03/23/2024 10:15 AM EDT As noted documented in this encounter [facility] 12-26-2023 Instructions Donald Alberts DO - [...] Compazine or Phenergan. documented in this encounter [facility] 12-26-2023 Note HNO ID: [id number] Author: DONALD ALBERTS DO Service: ? Author Type: Physician Type: Progress Notes Filed: 12/26/2023 13:43 Note Text: [facility] - FOLLOW UP EVALUATION Donald Alberts [address] [facility] [address] Nathan Bolton MD [address] [facility] [address] Herrera Wetzel is a 78 year old male with a history of PD. He is seen with his . Interval History Since Last Visit: The patient is having more issues with falling. 4(four) falls. Going to PT and DtD. Better with U-STEP Walking Stabilizer Walker. Wearing-off causes lots of trouble with his walking. More festinating. More jzeyqmyd-ai-ihmv (FOG). The patient denies any recent illness [...] no murmur Extremitie (more content not included)... [facility] 12-26-2023 History of Present illness Narrative [facility] - FOLLOW UP EVALUATION Donald Alberts [address] [facility] [address] Nathan Bolton MD [address] [facility] [address] Herrera Wetzel is a 78 year old male with a history of PD. He is seen with his . Interval History Since Last Visit: The patient is having more issues with falling. 4(four) falls. Going to PT and DtD. Better with U-STEP Walking Stabilizer Walker. Wearing-off causes lots of trouble with his walking. More festinating. More mzxdgcsz-mh-bcjj (FOG). The patient denies any recent illness [...] Left pathological reflexes: Kirstin's absent. Coordination Right: Qmrhwi-zb-rqbm normal. Rapid alternating movement normal.Left: Hhjdmk-ei-glax normal. Rapid alternating movement normal. Gait Casual [...] counseling regarding preparing to see the patient, sbnw-td-yral patient care, completing clinical documentation, obtaining and/or reviewing separately obtained history, performing a medically appropriate examination, counseling and educating the patient/family/caregiver, ordering medications, tests, or procedures, and communicating results to the patient/family/caregiver. I tried to answer all of the patient's questions and concerns during this visit. Donald Alberts, Senior Staff Neurologist - [facility] documented in this encounter [facility] 09-10-2023 History of Present illness Narrative [...] contrast w KUB documented in this encounter [facility] 06-14-2023 Note HNO ID: [id number] Author: Donald Alberts, DO Service: ? Author Type: Physician Type: Progress Notes Filed: 06/14/2023 3:34 PM Note Text: [facility] - FOLLOW UP EVALUATION Nathan Bolton MD [address] [facility] [address] Herrera Wetzel is a 77 year old male with a history of PD. He is seen with his . Interval History Since Last Visit: The patient had a swallowing test in late november 2022 - no issues other than more focus on swallowing was made to the patient. He is going to [facility] still. 1 fall in November o/w [...] Cardiac: Regular r (more content not included)... [facility] 02-20-2023 Miscellaneous Notes Last appt 12/05/22 MTG Requested Prescriptions Pending Prescriptions Disp Refills carbidopa-levodopa (SINEMET) 25-100 mg per tablet 540 tablet 3 Sig: Take 1.5 tablets by mouth four times daily. documented in this encounter [facility] 12-13-2022 Note PROCEDURE: XR HIP RT [...] authenticated by: AYAZ NICOLE Date: 2022-12-13 09:47 [facility] 12-13-2022 Note PROCEDURE: XR FOREAR M RT [...] authenticated by: AYAZ NICOLE Date: 2022-12-13 09:43 [facility] 12-13-2022 Note PROCEDURE: XR FOREAR M RT [...] authenticated by: AYAZ NICOLE Date: 2022-12-13 09:43 [facility] 12-05-2022 Note HNO ID: [id number] Author: Donald Alberts, DO Service: ? Author Type: Physician Type: Progress Notes Filed: 12/05/2022 2:18 PM Note Text: [facility] - FOLLOW UP EVALUATION Donald Alberts [address] [facility] [address] Nathan Bolton MD [address] [facility] [address] Herrera Wetzel is a 77 year old male with a history of parkinsonism. He is seen with family. Interval History Since Last Visit: He is falling. There is more pjtgsvxn-pn-zitv (FOG) - this is the cause of the falls. He has fallen while he is carrying things. Multitasking is a big issue. There were two falls in the post op period following cataract surgery. FOG seems to be worse in the PM. There is drooling at night. The mucous in the back of the throat is the issue. 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 The Sinemet is not [...] Right pathological reflex (more content not included)... [facility] 12-05-2022 Instructions Donald Alberts, - 12/05/2022 2:12 PM EDT Medications 8A 1130A 3P 6P Sinemet 25/100 1.5 1.5 1.5 1.5 Azilect 1mg 1 0 0 0 documented in this encounter [facility] 12-05-2022 History of Present illness Narrative [facility] - FOLLOW UP EVALUATION Donald Alberts [address] [facility] [address] Nathan Bolton MD [address] [facility] [address] Herrera Wetzel is a 77 year old male with a history of parkinsonism. He is seen with family. Interval History Since Last Visit: He is falling. There is more ddvswhsc-od-vued (FOG) - this is the cause of the falls. He has fallen while he is carrying things. Multitasking is a big issue. There were two falls in the post op period following cataract surgery. FOG seems to be worse in the PM. There is drooling at night. The mucous in the back of the throat is the issue. 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 The Sinemet is not [...] Left pathological reflexes: Kirstin's absent. Coordination Right: Igmqqj-hb-xryj normal. Rapid alternating movement normal.Left: Vaeucy-ux-wwoo normal. Rapid alternating movement normal. Gait Casual [...] during this visit: Pd [facility]'s [facility] (primary encounter diagnosis) Sialorrhea Hypophonia Plan: Continue current antiparkinsonian regimen as dosed other than increasing Sinemet 2. PA for botulinum toxin (Myobloc) injections 3. OPTICAL GLASS WET INSPECTOR locally for swallow evaluation Return in about 6 months (around 06/07/2023). Medical decision making was high complexity due to patient's, multiple symptoms, advancing disease The total time spent on the patient care was 30 minutes with greater than 50% of the time spent on counseling regarding preparing to see the patient, zvrn-ya-jcvc patient care, completing clinical documentation, obtaining and/or reviewing separately obtained history, performing a medically appropriate examination, counseling and educating the patient/family/caregiver, ordering medications, tests, or procedures, communicating with other HCPs (not separately reported), communicating results to the patient/family/caregiver, and care coordination (not separately reported) Donald Alberts DO Senior Staff Neurologist - [facility] Diagnosis: Sialorrhea (K11.7) Current Examination: There [...] EMG guidance: Yes documented in this encounter [facility] 09-27-2022 Note OPERATIVE NOTE OPERATION DATE: [...] ensuring mobility, phacoemulsification was performed in a ydiywnc-bdg-tpslid-type fashion. After all nuclear material had been [...] the following day for postoperative care. [facility] 09-27-2022 Note PREOPERATIVE HISTORY AND PHYSICAL [...] go forward with his elective procedure. [facility] 09-10-2022 Miscellaneous Notes Requested Prescriptions Pending Prescriptions Disp Refills rasagiline (AZILECT) 1 mg tab 90 tablet 1 Sig: Take 1 tablet by mouth once daily. documented in this encounter [facility] 08-30-2022 Note OPERATIVE NOTE OPERATION DATE: [...] ensuring mobility, phacoemulsification was performed in a bisbokh-vgq-xfdmnk-type fashion. After all nuclear material had been [...] the following day for postoperative care. [facility] 08-30-2022 Note HISTORY AND PHYSICAL EXAMINATION [...] go forward with his elective procedure. [facility] 06-27-2022 Note CONSULTATION CONSULTATION DATE: 06/27/2022 [...] follow up on a p.r.n. basis. [facility] 06-22-2022 Miscellaneous Notes I spoke with Mr. Wetzel to inform her MRI for Herrera is normal per Dr. Patino. ----- Message from Juan Patino MD sent at 06/20/2022 2:51 PM EST ----- Regarding: MRI results Suzanne, I am covering for Dr. Alberts today. Please let this patient know that his MRI results came back normal. Thanks, Dr. Patino documented in this encounter [facility] 06-20-2022 History of Present illness Narrative Radiology [...] 2022 1:15 PM documented in this encounter [facility] 06-06-2022 History of Present illness Narrative [facility] - FOLLOW UP EVALUATION Nathan Bolton MD [address] [facility] [address] Herrera Wetzel is a 76 year old male with a history of PD. He is seen with his . Interval History Since Last Visit: The patient notes that he is more clumsy - the speech has worsened over the last couple of weeks. the walking has had more wfmfbipl-in-zqje (FOG). No falls are noted. The notes [...] Left pathological reflexes: Kirstin's absent. Coordination Right: Upkfng-kf-njwq normal. Rapid alternating movement normal. Left: Wrjxhg-ia-bdib normal. Rapid alternating movement normal. Gait Casual [...] counseling regarding preparing to see the patient, aszx-wa-bgom patient care, completing clinical documentation, obtaining and/or reviewing separately obtained history, performing a medically appropriate examination, counseling and educating the patient/family/caregiver, ordering medications, tests, or procedures, and communicating results to the patient/family/caregiver. I tried to answer all of the patient's questions and concerns during this visit. Donald Alberts DO Senior Staff Neurologist - [facility] documented in this encounter [facility] 05-15-2022 Note CONSULTATION CONSULTATION DATE: 05/15/2022 CHIEF COMPLAINT: Low back pain, posterior thigh pain. HISTORY OF PRESENT ILLNESS: This is a very pleasant, 76-year-old gentleman who is accompanied by his . The patient suffers from Parkinson's. The patient is being treated at [facility] with regards to this. The patient [...] patient currently takes Mobic 7.5 daily, Tylenol kkct-yrp-umckuir. The patient also is on Sinemet, metformin, [...] mg IM. CC: Nathan Bolton M.D. [facility] Evaluation note Diagnosis PD (Parkinson's disease) ([facility])- Primary Paralysis agitans Dysarthria [facility] PD (Parkinson's disease) (HCC)- Primary Paralysis agitans Sialorrhea Disturbance of salivary secretion Hypophonia Other voice and resonance disorders [facility] Diagnosis PD (Parkinson's disease) (HCC) Paralysis agitans [facility] Diagnosis Sialorrhea- Primary Disturbance of salivary secretion [facility] Diagnosis Epigastric abdominal pain- Primary Abdominal pain, epigastric documented in this encounter [facility]* Diagnosis Parkinson's disease without dyskinesia or fluctuating manifestations (HCC)- Primary Sialorrhea Disturbance of salivary secretion [facility] Diagnosis PD (Parkinson's disease) (HCC) Paralysis agitans Dysarthria [facility] Diagnosis Epigastric abdominal pain- Primary [...] classified elsewhere (CMS/HCC) documented in this encounter [facility]* Diagnosis Epigastric abdominal pain- [...] insulin (CMS/HCC)- Primary [facility] Diagnosis Parkinson's disease without dyskinesia or fluctuating manifestations (HCC)- Primary Hypokinetic Parkinsonian dysphonia (HCC) Dysphonia [facility] Diagnosis Epigastric abdominal pain- Primary [...] with discogenic back pain Parkinson disease, symptomatic ([facility]) Paralysis agitans Immunodeficiency due to conditions classified elsewhere ([facility]) Dermatophytosis of nail- Primary Dystrophic nail Other specified disease of nail Pain around toenail, right foot Pain around toenail, left foot documented in this encounter [facility]* Diagnosis Dermatophytosis of nail- Primary Dystrophic nail Other specified disease of nail Pain around toenail, right foot Pain around toenail, left foot documented in this encounter [facility]* Diagnosis Epigastric abdominal pain- Primary Abdominal pain, epigastric Type 2 diabetes mellitus with hyperglycemia, without long-term current use of insulin ([facility])- Primary Essential hypertension, benign ([facility]) Essential hypertension, benign DDD (degenerative disc disease), lumbar Degeneration of lumbar or lumbosacral intervertebral disc Parkinson disease, symptomatic ([facility]) Paralysis agitans Encounter for long-term (current) use of medications Encounter for long-term (current) use of other medications Dyslipidemia ([facility]) Other and unspecified hyperlipidemia Type 2 diabetes mellitus with other specified complication, without long-term current use of insulin ([facility]) Essential hypertension, benign ([facility])- Primary Essential hypertension, benign Fall, subsequent encounter Closed fracture of body of sternum with delayed healing Closed fracture of body of sternum with routine healing- Primary Parkinson disease, symptomatic ([facility]) Paralysis agitans Unsteady gait Abnormality of gait Essential hypertension, benign ([facility]) Essential hypertension, benign Type 2 diabetes mellitus with hyperglycemia, without long-term current use of insulin ([facility])- Primary Essential hypertension, benign (CMS/HCC) Essential hypertension, benign Degeneration of intervertebral disc of lumbar region with discogenic back pain Parkinson disease, symptomatic ([facility]) Paralysis agitans Immunodeficiency due to conditions classified elsewhere ([facility]) Strain of calf muscle, subsequent encounter- Primary documented in this encounter [facility]* Diagnosis Hematuria, unspecified type- Primary [...] gross Gross hematuria [facility] Diagnosis PD (Parkinson's disease) (HCC) Paralysis agitans [facility] Diagnosis Epigastric abdominal pain- Primary [...] toenail, left foot documented in this encounter [facility]* Diagnosis Epigastric abdominal pain- [...] complication, without long-term current use of insulin Essential hypertension, benign (CMS/HCC)- Primary Essential hypertension, benign Fall, subsequent encounter Closed fracture of body of sternum with delayed healing Closed fracture of body of sternum with routine healing- Primary Parkinson disease, symptomatic (CMS/HCC) Paralysis agitans Unsteady gait Abnormality of gait Essential hypertension, benign (CMS/HCC) Essential hypertension, benign Type 2 diabetes mellitus with hyperglycemia, without long-term current use of insulin ([facility])- Primary Essential hypertension, benign (CMS/HCC) Essential hypertension, benign Degeneration of intervertebral disc of lumbar region with discogenic back pain Parkinson disease, symptomatic (CMS/HCC) Paralysis agitans Immunodeficiency due to conditions classified elsewhere ([facility]) Traumatic closed nondisplaced fracture of one rib with routine healing, left- Primary Kidney stone Calculus of kidney Type 2 diabetes mellitus with hyperglycemia, without long-term current use of insulin ([facility]) Fall, subsequent encounter Parkinson disease, symptomatic (CMS/HCC) Paralysis agitans 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[facility]) Type II or unspecified type diabetes mellitus with ophthalmic manifestations, not stated as uncontrolled Type 2 diabetes mellitus with hyperglycemia, without long-term current use of insulin ([facility])- Primary Essential hypertension, benign (CMS/HCC) Essential hypertension, benign Degeneration of intervertebral disc of lumbar region with discogenic back pain Parkinson disease, symptomatic (CMS/HCC) Paralysis agitans Acute cystitis without hematuria documented in this encounter [facility]* Diagnosis Epigastric abdominal pain- Primary Abdominal pain, epigastric Type 2 diabetes mellitus with hyperglycemia, without long-term current use of insulin ([facility])- Primary Essential hypertension, benign Essential hypertension, benign DDD (degenerative disc disease), lumbar Degeneration of lumbar or lumbosacral intervertebral disc Parkinson disease, symptomatic (HCC) Paralysis agitans Encounter for long-term (current) use of medications Encounter for long-term (current) use of other medications Dyslipidemia Other and unspecified hyperlipidemia Type 2 diabetes mellitus with other specified complication, without long-term current use of insulin (HCC) Essential hypertension, benign- Primary Essential hypertension, benign Fall, subsequent encounter Closed fracture of body of sternum with delayed healing Closed fracture of body of sternum with routine healing- Primary Parkinson disease, symptomatic (HCC) Paralysis agitans Unsteady gait Abnormality of gait Essential hypertension, benign Essential hypertension, benign Type 2 diabetes mellitus with hyperglycemia, without long-term current use of insulin ([facility])- Primary Essential hypertension, benign Essential hypertension, benign Degeneration of intervertebral disc of lumbar region with discogenic back pain Parkinson disease, symptomatic (HCC) Paralysis agitans Immunodeficiency due to conditions classified elsewhere ([facility]) Traumatic closed nondisplaced fracture of one rib with routine healing, left- Primary Kidney stone Calculus of kidney Type 2 diabetes mellitus with hyperglycemia, without long-term current use of insulin ([facility]) Fall, subsequent encounter Parkinson disease, symptomatic (HCC) Paralysis agitans 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[facility]) Type II or unspecified type diabetes mellitus with ophthalmic manifestations, not stated as uncontrolled Type 2 diabetes mellitus with hyperglycemia, without long-term current use of insulin ([facility])- Primary Essential hypertension, benign Essential hypertension, benign Degeneration of intervertebral disc of lumbar region with discogenic back pain Parkinson disease, symptomatic (HCC) Paralysis agitans Acute cystitis without hematuria Dermatophytosis of nail- Primary Dystrophic nail Other specified disease of nail Pain around toenail, right foot Pain around toenail, left foot documented in this encounter [facility]* Diagnosis Epigastric abdominal pain- Primary Abdominal pain, epigastric Type 2 diabetes mellitus with hyperglycemia, without long-term current use of insulin ([facility])- Primary Essential hypertension, benign Essential hypertension, benign DDD (degenerative disc disease), lumbar Degeneration of lumbar or lumbosacral intervertebral disc Parkinson disease, symptomatic (HCC) Paralysis agitans Encounter for long-term (current) use of medications Encounter for long-term (current) use of other medications Dyslipidemia Other and unspecified hyperlipidemia Type 2 diabetes mellitus with other specified complication, without long-term current use of insulin ([facility]) Essential hypertension, benign- Primary Essential hypertension, benign Fall, subsequent encounter Closed fracture of body of sternum with delayed healing Closed fracture of body of sternum with routine healing- Primary Parkinson disease, symptomatic (HCC) Paralysis agitans Unsteady gait Abnormality of gait Essential hypertension, benign Essential hypertension, benign Type 2 diabetes mellitus with hyperglycemia, without long-term current use of insulin ([facility])- Primary Essential hypertension, benign Essential hypertension, benign Degeneration of intervertebral disc of lumbar region with discogenic back pain Parkinson disease, symptomatic (HCC) Paralysis agitans Immunodeficiency due to conditions classified elsewhere ([facility]) Traumatic closed nondisplaced fracture of one rib with routine healing, left- Primary Kidney stone Calculus of kidney Type 2 diabetes mellitus with hyperglycemia, without long-term current use of insulin ([facility]) Fall, subsequent encounter Parkinson disease, symptomatic (HCC) Paralysis agitans 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[facility]) Type II or unspecified type diabetes mellitus with ophthalmic manifestations, not stated as uncontrolled Type 2 diabetes mellitus with hyperglycemia, without long-term current use of insulin ([facility])- Primary Essential hypertension, benign Essential hypertension, benign Degeneration of intervertebral disc of lumbar region with discogenic back pain Parkinson disease, symptomatic (HCC) Paralysis agitans Acute cystitis without hematuria Type 2 diabetes mellitus with hyperglycemia, without long-term current use of insulin ([facility])- Primary Essential hypertension, benign Essential hypertension, benign Parkinson disease, symptomatic (HCC) Paralysis agitans Degeneration of intervertebral disc of lumbar region with discogenic back pain Dysphagia, unspecified type documented in this encounter [facility] Diagnosis Epigastric abdominal pain- Primary Abdominal pain, epigastric Type 2 diabetes mellitus with hyperglycemia, without long-term current use of insulin ([facility])- Primary Essential hypertension, benign Essential hypertension, benign DDD (degenerative disc disease), lumbar Degeneration of lumbar or lumbosacral intervertebral disc Parkinson disease, symptomatic (HCC) Paralysis agitans Encounter for long-term (current) use of medications Encounter for long-term (current) use of other medications Dyslipidemia Other and unspecified hyperlipidemia Type 2 diabetes mellitus with other specified complication, without long-term current use of insulin ([facility]) Essential hypertension, benign- Primary Essential hypertension, benign Fall, subsequent encounter Closed fracture of body of sternum with delayed healing Closed fracture of body of sternum with routine healing- Primary Parkinson disease, symptomatic (HCC) Paralysis agitans Unsteady gait Abnormality of gait Essential hypertension, benign Essential hypertension, benign Type 2 diabetes mellitus with hyperglycemia, without long-term current use of insulin ([facility])- Primary Essential hypertension, benign Essential hypertension, benign Degeneration of intervertebral disc of lumbar region with discogenic back pain Parkinson disease, symptomatic (HCC) Paralysis agitans Immunodeficiency due to conditions classified elsewhere (HCC) Traumatic closed nondisplaced fracture of one rib with routine healing, left- Primary Kidney stone Calculus of kidney Type 2 diabetes mellitus with hyperglycemia, without long-term current use of insulin (HCC) Fall, subsequent encounter Parkinson disease, symptomatic (HCC) Paralysis agitans 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HCC) Type II or unspecified type diabetes mellitus with ophthalmic manifestations, not stated as uncontrolled Type 2 diabetes mellitus with hyperglycemia, without long-term current use of insulin (HCC)- Primary Essential hypertension, benign Essential hypertension, benign Degeneration of intervertebral disc of lumbar region with discogenic back pain Parkinson disease, symptomatic (HCC) Paralysis agitans Acute cystitis without hematuria Type 2 diabetes mellitus with hyperglycemia, without long-term current use of insulin (HCC)- Primary Essential hypertension, benign Essential hypertension, benign Parkinson disease, symptomatic (HCC) Paralysis agitans Degeneration of intervertebral disc of lumbar region with discogenic back pain Dysphagia, unspecified type Type 2 diabetes mellitus with hyperglycemia, without long-term current use of insulin (HCC) documented in this encounter [facility]ructionsNot on filedocumented in [facility] Purpose Family History No Family History Records FoundNo Family History Records FoundNo Family History Records FoundNo Family History Records FoundNo Family History Records FoundNo Family History Records FoundNo Family History Records FoundNo Family History Records FoundNo Family History Records FoundNo Family History Records Found Advance Directives Documents on File Type Date Recorded Patient Rehab Care Assistant Expl anation Living Will 06/20/2021 9:38 AM Durable Power of Supervisor Evaporator 06/20/2021 9:37 AM Reason for Referral Specialty Diagnoses / Procedures Referred By El chaves Referred To Contact Diagnoses PD (Parkinson's disease) (HCC) Dysarthria Procedures PROVIDER ORDERED FOLLOW UP OFFICE[facility]74 [facility] Donald Alberts T, DO [address] [place] [address] Referral ID Status Reason Start Date Expiration Date V isits Requested Visits Authorized [id number] Pending Review 12/04/2022 03/04/2023 1 1 Specialty Diagnoses / Procedures Referred By El chaves Referred To Contact MR IMAGING Diagnoses PD (Parkinson's disease) (HCC) Dysarthria Procedures MRI BRAIN WO IVCON MRI BRAIN BRAIN STEM W/O CONTRAST MATERIAL Donald Alberts DO [address] [place] [address] Mr Imaging Referral ID Status Reason Start Date Expiration Date Visits Requested Visits Authorized [id number] Authorized Auto-Generat ed Referral 06/06/2022 07/06/2023 1 1 Specialty Diagnoses / Procedures Referred By El chaves Referred To Contact Diagnoses PD (Parkinson's disease) ([facility]) Procedures PROVIDER ORDERED FOLLOW UP OFFICE/OUTPATIENT [facility] MDM 60-74 MINUTES Donald Alberts DO [address] [place] [address] Referral ID Status Reason Start Date Expiration Date V isits Requested Visits Authorized [id number] Pending Review 06/07/2023 09/05/2023 1 1 Specialty Diagnoses / Procedures Referred By El chaves Referred To Contact [facility] Diagnoses PD (Parkinson's disease) ([facility]) Sialorrhea Hypophonia Procedures CONSULT TO SPEECH THERAPY OFFICE/OUTPATIENT [facility] 60-74 MINUTES Donald Alberts, DO [address] [place] [address] [facility] [place] [id number] Referral ID Status Reason Start Date Expiration Date Visits Requested Visits Authorized [id number] Pending Review Auto-Generat ed Referral 12/05/2022 12/05/2023 1 1 Specialty Diagnoses / Procedures Referred By El chaves Referred To Contact MR IMAGING Diagnoses PD (Parkinson's disease) ([facility]) Dysarthria Procedures MRI BRAIN WO IVCON MRI BRAIN BRAIN STEM W/O CONTRAST MATERIAL Donald Alberts, [address] [place] [address] Mr [facility] [place] [address] Referral ID Status Reason Start Date Expiration Date V isits Requested Visits Authorized [id number] Closed Auto-Generate d Referral 06/06/2022 07/06/2023 1 1 Specialty Diagnoses / Procedures Referred By El chaves Referred To Contact Diagnoses Parkinson's disease without dyskinesia or fluctuating manifestations (HCC) Procedures PROVIDER ORDERED FOLLOW UP OFFICE/OUTPATIENT [facility] 60 MINUTES Donald Alberts DO [address] [place] [address] Referral ID Status Reason Start Date Expiration Date V isits Requested Visits Authorized [id number] Authorized 12/16/2024 03/16/2025 1 1 Specialty Diagnoses / Procedures Referred By El chaves Referred To Contact [facility] Diagnoses 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) Procedures CONSULT TO SPEECH THERAPY OFFICE[facility] 60 MINUTES Donald Alberts DO [address] [place] [id number] [facility] [place] [address] Referral ID Status Reason Start Date Expiration Date Visits Requested Visits Authorized [id number] Pending Review Auto-Generat ed Referral 06/18/2025 1 1 Additional Source Comments (unrecognized sect ion and content) No Status Records FoundNo Status Records FoundNo Status Records FoundNo Status Records FoundNo Status Records FoundNo Status Records FoundNo Status Records FoundNo Status Records FoundNo Status Records FoundNo Status Records Found INFORMATION SOURCE (unrecogn ized section and content) DATE CREATED AUTHOR 03/26/2020 [facility] DATE CREATED AUTHOR AUTHOR'S ORGANIZ ATION 11/22/2020 [facility] DATE CREATED AUTHOR AUTHOR'S ORGANIZ ATION 01/04/2023 [facility] DATE CREATED AUTHOR AUTHOR'S ORGANIZ ATION 06/17/2023 [facility] DATE CREATED AUTHOR AUTHOR'S ORGANIZ ATION 05/20/2024 [facility] DATE CREATED AUTHOR AUTHOR'S ORGANIZ ATION 05/26/2024 [facility] DATE CREATED AUTHOR AUTHOR'S ORGANIZ ATION 07/18/2024 [facility] DATE CREATED AUTHOR AUTHOR'S ORGANIZ ATION 12/24/2024 [facility] DATE CREATED AUTHOR AUTHOR'S ORGANIZ ATION 03/05/2025 [facility] DATE CREATED AUTHOR AUTHOR'S ORGANIZ ATION 03/20/2025 [facility] Source Comments (unrecognize d section and content) In the event this informatio n is protected by the Federal Confidentiality of Alcohol and Drug Abuse Patient Records regulations: The Federal rules restrict any use of the information to criminally investigate or prosecute any alcohol or drug abuse patient.[facility] the event this information is protected by the Federal Confidentiality of Alcohol and Drug Abuse Patient Records regulations: The Federal rules restrict any use of the information to criminally investigate or prosecute any alcohol or drug abuse patient.[facility] Center[facility] the event this information is protected by the Federal Confidentiality of Alcohol and Drug Abuse Patient Records regulations: The Federal rules restrict any use of the information to criminally investigate or prosecute any alcohol or drug abuse patient.[facility] the event this information is protected by the Federal Confidentiality of Alcohol and Drug Abuse Patient Records regulations: The Federal rules restrict any use of the information to criminally investigate or prosecute any alcohol or drug abuse patient.[facility] the event this information is protected by the Federal Confidentiality of Alcohol and Drug Abuse Patient Records regulations: The Federal rules restrict any use of the information to criminally investigate or prosecute any alcohol or drug abuse patient.[facility] Center[facility] the event this information is protected by the Federal Confidentiality of Alcohol and Drug Abuse Patient Records regulations: The Federal rules restrict any use of the information to criminally investigate or prosecute any alcohol or drug abuse patient.[facility] Center[facility] the event this information is protected by the Federal Confidentiality of Alcohol and Drug Abuse Patient Records regulations: The Federal rules restrict any use of the information to criminally investigate or prosecute any alcohol or drug abuse patient.[facility] Center[facility] the event this information is protected by the Federal Confidentiality of Alcohol and Drug Abuse Patient Records regulations: The Federal rules restrict any use of the information to criminally investigate or prosecute any alcohol or drug abuse patient.[facility] Center[facility] the event this information is protected by the Federal Confidentiality of Alcohol and Drug Abuse Patient Records regulations: The Federal rules restrict any use of the information to criminally investigate or prosecute any alcohol or drug abuse patient.[facility] Center[facility] the event this information is protected by the Federal Confidentiality of Alcohol and Drug Abuse Patient Records regulations: The Federal rules restrict any use of the information to criminally investigate or prosecute any alcohol or drug abuse patient.[facility] Center[facility] the event this information is protected by the Federal Confidentiality of Alcohol and Drug Abuse Patient Records regulations: The Federal rules restrict any use of the information to criminally investigate or prosecute any alcohol or drug abuse patient.[facility] Center[facility] the event this information is protected by the Federal Confidentiality of Alcohol and Drug Abuse Patient Records regulations: The Federal rules restrict any use of the information to criminally investigate or prosecute any alcohol or drug abuse patient.[facility] CenterIn the event this information is protected by the Federal Confidentiality of Alcohol and Drug Abuse Patient Records regulations: The Federal rules restrict any use of the information to criminally investigate or prosecute any alcohol or drug abuse patient.[facility] Center[facility] the event this information is protected by the Federal Confidentiality of Alcohol and Drug Abuse Patient Records regulations: The Federal rules restrict any use of the information to criminally investigate or prosecute any alcohol or drug abuse patient.[facility] Center[facility] the event this information is protected by the Federal Confidentiality of Alcohol and Drug Abuse Patient Records regulations: The Federal rules restrict any use of the information to criminally investigate or prosecute any alcohol or drug abuse patient.[facility] CenterIn the event this information is protected by the Federal Confidentiality of Alcohol and Drug Abuse Patient Records regulations: The Federal rules restrict any use of the information to criminally investigate or prosecute any alcohol or drug abuse patient.[facility] Reason for Visit (unrecogniz ed section [...] HIGH MDM 60-74 MINUTES Donald Alberts DO [address] [place] [address] Referral ID Status Reason Start Date Expiration Date V isits Requested Visits Authorized [id number] Pending Review 12/04/2022 03/04/2023 1 1 Reason [...] 60-74 MINUTES Donald Alberts DO [address] [place] [address] [facility] [address] [place] [address] Referral ID Status Reason Start Date Expiration Date V isits Requested Visits Authorized [id number] Authorized 07/29/2023 07/28/2024 99 99 Specialty Diagnoses / Procedures Referred By El chaves Referred To Contact MR IMAGING Diagnoses PD (Parkinson's disease) (HCC) Dysarthria Procedures MRI BRAIN WO IVCON MRI BRAIN BRAIN STEM W/O CONTRAST MATERIAL Donald Alberts, DO [address] [place] [address] [place] [address] Referral ID Status Reason Start Date Expiration Date V isits Requested Visits Authorized [id number] Closed Auto-Generate d Referral 06/06/2022 07/06/2023 1 [...] PRICE 10/02/24, A1C: 9.6 (05/2024), BS: 137 Reason Comments Follow-up 6m f/upBlood sugar n umbers increasing. UTI Possible uti, starte d last week Reason Comments DM Foot Care Established patient presents today for diabetic foot care. PCP: Dr. Hoang PRICE 11/30/24, A1C: 7.5, BS: 180-100 Reason Comments Follow-up 3m f/upA1C up in the 9's Choking Trouble swallowing Reason Comments Med Refill Care Teams (unrecognized sec tion and content) Dust Box Tender Relationship Specialty Start Date End Date Nathan Bolton [address] [place] [address] PCP - General Family Medicine 07/29/20 Dust Box Tender Relationship Specialty Start Date End Date Nathan Bolton [address] [place] [address] PCP - General Family Medicine 07/29/20 Dust Box Tender Relationship Specialty Start Date End Date Hoang Nathan Alonso [address] [place] [address] PCP - General Family Medicine 07/29/20 Dust Box Tender Relationship Specialty Start Date End Date Mamegideon Nathan Alonso [address] [place] [address] PCP - General Family Medicine 07/29/20 Dust Box Tender Relationship Specialty Start Date End Date Nathan Bolton Gavin [address] [place] [address] PCP - General Family Medicine 07/29/20 Dust Box Tender Relationship Specialty Start Date End Date Nathan Bolton [address] [place] [address] PCP - General Family Medicine 07/29/20 Dust Box Tender Relationship Specialty Start Date End Date Nathan Bolton [address] [place] [address] PCP - General Family Medicine 07/29/20 Dust Box Tender Relationship Specialty Start Date End Date Nathan Bolton MD [address] [place] [address] PCP - General Family Medicine 09/10/23 Dust Box Tender Relationship Specialty Start Date End Date Nathan Bolton MD [address] [place] [address] PCP - General Family Medicine 09/10/23 Dust Box Tender Relationship Specialty Start Date End Date Nathan Bolton [address] [place] [address] PCP - General Family Medicine 07/29/20 Dust Box Tender Relationship Specialty Start Date End Date Nathan Bolton [address] [place] [address] PCP - General Family Medicine 07/29/20 Dust Box Tender Relationship Specialty Start Date End Date Nathan Bolton [address] [place] [address] PCP - General Family Medicine 07/29/20 Dust Box Tender Relationship Specialty Start Date End Date Nathan Bolton MD [address] [place] [address] PCP - General Family Medicine 09/10/23 Dust Box Tender Relationship Specialty Start Date End Date Nathan Bolton MD [address] [place] [address] PCP - General Family Medicine 09/10/23 Dust Box Tender Relationship Specialty Start Date End Date Nathan Bolton MD [address] [place] [address] PCP - General Family Medicine 09/10/23 Dust Box Tender Relationship Specialty Start Date End Date Nathan Bolton MD [address] [place] [address] PCP - General Family Medicine 07/29/20 Dust Box Tender Relationship Specialty Start Date End Date Nathan Bolton MD [address] [place] [address] PCP - General Family Medicine 07/29/20 Dust Box Tender Relationship Specialty Start Date End Date Nathan Bolton MD [address] [place] [address] PCP - General Family Medicine 07/29/20 Dust Box Tender Relationship Specialty Start Date End Date Nathan Bolton MD [address] [place] [address] PCP - General Family Medicine 09/10/23 Dust Box Tender Relationship Specialty Start Date End Date Nathan Bolton MD [address] [place] [address] PCP - General Family Medicine 09/10/23 Dust Box Tender Relationship Specialty Start Date End Date Nathan Bolton MD [address] [place] [address] PCP - General Family Medicine 09/10/23 Dust Box Tender Relationship Specialty Start Date End Date Nathan Bolton MD [address] [place] [address] PCP - General Family Medicine 09/10/23 Dust Box Tender Relationship Specialty Start Date End Date Nathan Bolton MD PCP - General Family Medicine 11/09/20 Dust Box Tender Relationship Specialty Start Date End Date Nathan Bolton MD [address] [place] [address] PCP - General Family Medicine 07/29/20 Dust Box Tender Relationship Specialty Start Date End Date Nathan Bolton MD [address] [place] [address] PCP - General Family Medicine 09/10/23 Dust Box Tender Relationship Specialty Start Date End Date Nathan Bolton MD [address] [place] [address] PCP - General Family Medicine 09/10/23 Dust Box Tender Relationship Specialty Start Date End Date Nathan Bolton MD [address] [place] [address] PCP - General Family Medicine 09/10/23 Dust Box Tender Relationship Specialty Start Date End Date Nathan Bolton MD [address] [place] [address] PCP - General Family Medicine 09/10/23 Dust Box Tender Relationship Specialty Start Date End Date Nathan Bolton MD [address] [place] [address] PCP - General Family Medicine 09/10/23 Dust Box Tender Relationship Specialty Start Date End Date Nathan Bolton MD [address] [place] [address] PCP - General Family Medicine 09/10/23 Dust Box Tender Relationship Specialty Start Date End Date Nathan Bolton MD [address] [place] [address] PCP - [facility] 09/10/23 Dust Box Tender Relationship Specialty Start Date End Date Nathan Bolton MD [address] [place] [address] PCP - [facility] 09/10/23 Dust Box Tender Relationship Specialty Start Date End Date Nathan Bolton MD [address] [place] [address] PCP - [facility] 09/10/23 FOR RECORDS PERTAINING TO PATIENTS [...] BE BASED ON THE PRIMARY CLINICAL RECORDS. [facility] [email or web address] [facility]. provides no warranty or guarantee of the accuracy or completeness of information in this document.
--- NOTE | 2025-04-07 10:12 | PM.CN ---
Consult Note: HPI Data of Consult Patient: known to practice within the last 3 years Consult date: 04/07/25 Requesting Physician: Shayy Crane NP Primary Care Provider: Non-Staff Physician, Consult Narrative Reason for consult: neck, upper extremity, low back, lower extremity pain Narrative: [id number] who presents for evaluation. longstanding history of neck, upper extremity, low back, lower extremity pain. previously underwent interventional modalities, with good relief. has engaged in a series of provider directed home exercises >6 weeks, without lasting benefit. uses mobic and percocet as needed. recently completed cervical MRI and lumbar MRI which are consistent with multilevel degenerative changes and stenosis. denies fall/injury since last visit, continues to utilize wheeled walker and attend delay the disease classes for parkinsons cc:: CC: Shayy Crane NP Review of Systems ROS Musculoskeletal Reports: back pain, neck pain and extremity pain PFSH PFSH Social History Smoking status: Never smoker Little interest or pleasure in doing things: not at all Feeling down, depressed, or hopeless: not at all Meds Home Medications and Allergies Home Medications ?Medication ?Instructions ?Recorded ?Confirmed ?Type carbidopa 25 mg-levodopa 100 mg 1.5 tab PO .4 times per day 02/07/23 11/17/24 History tablet glipizide 5 mg tablet 5 mg PO DAILY 02/07/23 11/17/24 History meloxicam 7.5 mg tablet 7.5 mg PO DAILY 02/07/23 11/17/24 History rasagiline 1 mg tablet 1 mg PO DAILY 02/07/23 11/17/24 History simvastatin 40 mg tablet 40 mg PO .QHS 02/07/23 11/17/24 History aspirin 81 mg capsule 81 mg PO DAILY 09/23/24 11/17/24 History magnesium 250 mg tablet 250 mg PO DAILY 09/23/24 11/17/24 History metformin 500 mg tablet 500 mg PO BID 09/23/24 11/17/24 History multivitamin 1 tab PO DAILY 09/23/24 11/17/24 History omeprazole 40 mg capsule,delayed 40 mg PO BID 09/23/24 11/17/24 History release glipizide 10 mg tablet mg 11/17/24 History sitagliptin phosphate 100 mg mg 11/17/24 History tablet (Januvia) Allergies Allergy/AdvReac Type Severity Reaction Status Date / Time No Known Drug Allergies Allergy Verified 11/17/24 19:17 Exam Neck & C-Spine Cervical spine: cervical ROM abnormal, pain with cervical ROM and cervical spine tenderness Other: decreased sensation bilateral C4,5,6 strength 4/5 in BLE Back & Pelvis Lumbar spine/lower back: ROM limited, pain with ROM, straight leg raise positive right and straight leg raise positive left Other: left > right SLR decreased sensation bilateral L4,5 strength 4/5 in BLE Neuro Gait (neuro): antalgic and assistive device used walker Assessment and Plan Assessment and Plan (1) Lumbar stenosis with neurogenic claudication: (2) Cervical stenosis of spine: (3) Lumbar spondylosis: Plan The patient has had over 3 months of moderate to severe neck, low back, and BLE pain with functional impairment and inadequate response to conservative care including NSAIDS (unless there are contraindication such as concurrent blood thinners), multiple oral or topical pain medications, and home exercise program/physical therapy.? Patient has completed >6 weeks of guided home exercise program and/or formal physical therapy program without relief of their symptoms.? The Oswestry Disability Index was completed, and the patient scored a 44%.? cervical and lumbar MRI reviewed with pt and proceed with bilateral L4-5 TFESI at this time under fluoroscopy, may consider additional TFESIs due to significant multilevel narrowing start gabapentin 100mg BID, risks vs benefits reviewed with pt and continue HEP as tolerated f/u 2 weeks after TFESI
== END 2025-04-07 09:40 | disposition home or self-care (01) ==
LOC: PM 09:39
PROVIDERS: Visit Provider Nurse Practitioner
DX: M48.062 Spinal stenosis, lumbar region with neurogenic claudication (principal); M48.02 Spinal stenosis, cervical region; M47.816 Spondylosis without myelopathy or radiculopathy, lumbar region
CPT/HCPCS: G0463

== ENCOUNTER 2025-05-03 10:18 | Day surgery (SDC) | payer MEDICARE, SELFPAY ==
--- OUTSIDE RECORDS SUMMARY | 2025-05-03 10:21 | XMS_ITS | Encounter Summary ---
Author Organization [facility] Address [address] [place] [address] Care Team Providers Care Soil Fertility Extension Specialist Name Role Phone Nathan Hartman MD Primary Care Provider [phone] Encounter Details Date Type Department Care Team (Late st Contact Info) Description 03/03/2025 Abstract [facility] [address] [place] [address] Nathan Hartman MD [address] [place] [address] Social History Tobacco Use Types Packs/Day Years [...] any clubs o r organizations such as religious groups, unions, fraternal or athletic groups, or [...] Recorded Patient Health Questionnaire-2 Score 0 02/04/2024 [facility] - Occupational Stress [...] place to sleep or slept in a custodial (including now)? No 11/28/2023 Housing Stability Vital [...] were you homeless or living in a custodial (including now)? No 02/26/2025 Sex and Gender [...] Procedure Visit [facility] [address] [place] [phone] Ky Santo DPM [address] [place] [address] documented as of this encounter Visit Diagnoses Not on filedocumented in this encounter Care Teams Soil Fertility Extension Specialist Relationship Specialty Start Date End Date Nathan Hartman MD PCP - General Family Medicine 09/10/23 documented as of this encounter
--- OUTSIDE RECORDS SUMMARY | 2025-05-03 10:21 | XMS_ITS | Encounter Summary ---
Author Organization [facility] Address [address] [place] [address] Care Team Providers Care Production Control Planner Name Role Phone Nathan Hartman MD Primary Care Provider [phone] Source Comments In the event this information is protected by the Federal Confidentiality of Alcohol and Drug AbusePatient Records regulations: The Federal rules restrict any use of the information to criminally investigate or prosecute any alcohol or drug abuse patient.[facility] Encounter Details Date Type Department Care Team (Late st Contact Info) Description 09/06/2021 Patient Msg Neurology [address] [place], [place] [id number] Provider, Eleuterio SIX MONTH FOLLOW UP APPOINTMENT [...] N ot on file 07/05/2020 Data from: https://www.neighborhoodatlas.medicine.[facility].edu/. Last address used for calculation Not on [...] 07/01/2025 2:30 PM EST Office Visit Neurology [address] [place] [address] Donald Chou, DO [address] [place] [address] 6 month follow up documented as of this encounter Visit Diagnoses Not on filedocumented in this encounter Care Teams Production Control Planner Relationship Specialty Start Date End Date Nathan Hartman MD [address] [place] [address] PCP - General Family Medicine 07/29/20 documented as of this encounter
--- OUTSIDE RECORDS SUMMARY | 2025-05-03 10:21 | XMS_ITS | Encounter Summary ---
Author Organization [facility] Address [address] [place] [address] Care Team Providers Care Coding Technician Name Role Phone Nathan Hartman MD Primary Care Provider [phone] Source Comments In the event this information is protected by the Federal Confidentiality of Alcohol and Drug AbusePatient Records regulations: The Federal rules restrict any use of the information to criminally investigate or prosecute any alcohol or drug abuse patient.[facility] Encounter Details Date Type Department Care Team (Late st Contact Info) Description 07/01/2019 Patient Msg Neurology [address] [place] [address] Donald Alberts, DO [address] [place] [address] RE: Request an Appointment Social [...] 07/01/2025 2:30 PM EST Office Visit Neurology [address] [place] [address] Donald Alberts, DO [address] [place] [address] 6 month follow up documented as of this encounter Visit Diagnoses Not on filedocumented in this encounter Care Teams Coding Technician Relationship Specialty Start Date End Date Nathan Hartman MD [address] [place] [address] PCP - General Family Medicine 07/29/20 documented as of this encounter
--- OUTSIDE RECORDS SUMMARY | 2025-05-03 10:21 | XMS_ITS | Clinical Summary ---
Author Organization [facility] Address [address] [place] [address] Care Team Providers Care Ammonia Distiller Name Role Phone Nathan Hartman MD Primary Care Provider [phone] Allergies No known active allergies Medications ONETOUCH [...] Description 02/18/2025 Patient Msg Neurology [address] [place] [address] Provider, Ccf Am I an Pacific Candidate for New Therapies in Parkinson's Disease? [...] is lower risk 8 12/05/2022 Data from: https://www.neighborhoodatlas.medicine.[facility].edu/. Last address used for calculation [address] 12/05/2022 Sex and Gender [...] 07/01/2025 2:30 PM EST Office Visit Neurology [address] [address] [place] [address] Donald Alberts, DO [address] [place] [address] 6 month follow up Health Maintenance Due Date Last Done Comments Anxiety Screening 1963 Depression Screening 1963 Hepatitis C Screening 1963 DTaP,Tdap,Td Vaccine (1 - Tdap) 05/28/2017 7 Advance Directive Discussion 07/29/2024 Medicare Advantage Annual We llness Visit 07/29/2024 Covid-19 Vaccine (2024-2 6 season) 2025 04/26/2022, 10/30/2021, 04/27/2021, Additional history exists Influenza Vaccine (#1) 2025 , 04/22/2023, 04/23/2022, Additional history exists Diabetes Screening 06/24/2026 06/24/2023, 1 08/20/2020, 06/20/2021, Additional history exists Pneumococcal Vaccine: 50+ Completed 09/06/2017, 08/2015 Shingrix Vaccine Completed 11/20/2018, 02/17/2018 RSV Vaccine Completed 05/13/2023 [place] [address] AETNA MEDICARE Care Teams Ammonia Distiller Relationship Specialty Start Date End Date Nathan Hartman MD [address] [place] [address] PCP - General Family Medicine 07/29/20
--- OUTSIDE RECORDS SUMMARY | 2025-05-03 10:21 | XMS_ITS | Clinical Summary ---
Author Organization [facility] Address [address] [place] [address] Care Team Providers Care Institutional Custodian Name Role Phone Nathan Hartman MD Primary Care Provider [phone] Allergies No known active allergies Medications carbidopa-levodopa [...] split. Active omeprazole (PriLOSEC) [address] capsuleIndications: Epigastric abdominal pain TAKE 1 CAPSULE IN THE MORNING BEFORE A MEAL. DO NOT CRUSH OR CHEW 90 capsule 3 5 Active oxyCODONE-acetamino phen (Percocet) 5-325 MG tablet every 4 (four) hours if needed for severe pain Active polyethylene glycol, PEG, 3350 (Miralax) 17 g packet Take 17 g by mouth Daily Active meloxicam (Mobic) 7.5 MG tabletIndications:D DD (degenerative disc disease), lumbar TAKE 1 TABLET DAILY 90 tablet 3 5 Active metFORMIN XR (Glucophage-XR) 500 MG 24 hr tabletIndications:T ype 2 diabetes mellitus with hyperglycemia, without long-term current use of insulin ([facility]) TAKE 1 TABLET IN THE MORNING AND BEFORE BEDTIME.DO NOT CRUSH, CHEW OR SPLIT 180 tablet 3 5 Active simvastatin (Zocor) 40 MG tabletIndications:D yslipidemia TAKE 1 TABLET AT BEDTIME 90 tablet 3 5 Active glipiZIDE (Glucotrol) 10 MG tabletIndications:T ype 2 diabetes mellitus with hyperglycemia, without long-term current use of insulin (HCC) Take 2 tablets (20 mg) by mouth in the morning and 2 tablets (20 mg) in the evening. Take before meals. 360 tablet 3 5 Active Januvia 100 MG tabletIndications:T ype 2 diabetes mellitus with hyperglycemia, without long-term current use of insulin ([facility]) TAKE 1 TABLET BY MOUTH EVERY DAY 30 tablet 5 5 Active Active Problems Problem Noted Date [...] Care Team Description 03/25/2025 Refill [facility] [address] [place] [address] Nathan Hartman MD Type 2 diabetes mellitus with hyperglycemia, without long-term current use of insulin (HCC) 03/03/2025 10:30 AM EDT Office Visit [facility] [place] [facility] [address] [place] [address] Nathan Hartman MD Type 2 diabetes mellitus with hyperglycemia, without long-term current use of insulin (HCC) (Primary Dx); Essential hypertension, benign ; Parkinson disease, symptomatic (HCC); Degeneration of intervertebral disc of lumbar region with discogenic back pain; Dysphagia, unspecified type 03/03/2025 Abstract [facility] [address] [place] [address] Nathan Hartman MD 03/03/2025 Bamboo flowsheet [facility] [address] [place] [address] Nathan Hartman MD 02/26/2025 Travel 02/04/2025 [facility] [address] [place] [address] Nathan Hartman MD DDD (degenerative disc disease), lumbar; Type 2 diabetes mellitus with hyperglycemia, without long-term current use of insulin (HCC); Dyslipidemia from Last 3 Months Immunizations Immunization Administration [...] Relation Name Comments Vision loss Father Elvin Martinez Sr Cancer Mother Aida damari Relation Name Status Comments Father Elvin Martinez Sr Mother Aida jansent Social History Tobacco Use Types Packs/Day Years [...] week 02/26/2025 How often do you attend [facility] or jain services? Never 02/26/2025 Do you belong to [...] Recorded Patient Health Questionnaire-2 Score 0 02/04/2024 [facility] - Occupational Stress Questionnaire Answer Date Recorded [...] a skilled nursing (including now)? No 11/28/2023 Housing Stability Vital [...] time in the past 12 m [facility], were you homeless or living in a skilled nursing (including now)? No 02/26/2025 Sex and Gender [...] EDT Procedure Visit [facility] [address] [place] [address] Ky Santo DPJade [address] [place], [place] [phone] Health Maintenance Due Date Last Done Comments Influenza Vaccine (#1) 2025 4, 04/22/2023, 04/23/2022, Additional history exists Pneumococcal Vaccine: 65+ Years Completed 8, 05/30/2016 Insurance [employer] MEDICARE ADVANTAGE Care Teams Institutional Custodian Relationship Specialty Start Date End Date Nathan Hartman MD PCP - General Family Medicine 09/10/23
--- OUTSIDE RECORDS SUMMARY | 2025-05-03 10:21 | XMS_ITS | Encounter Summary ---
Author Organization [facility] Address [address] [place] [address] Care Team Providers Care Primary Care Md Name Role Phone Nathan Hartman MD Primary Care Provider [phone] Source Comments In the event this information is protected by the Federal Confidentiality of Alcohol and Drug AbusePatient Records regulations: The Federal rules restrict any use of the information to criminally investigate or prosecute any alcohol or drug abuse patient.[facility] Encounter Details Date Type Department Care Team (Late st Contact Info) Description 12/22/2021 Patient Msg Neurology [address] [place], [place] [id number] Provider, Ccf Appointment Canceled Social History Tobacco [...] N ot on file 07/05/2020 Data from: https://www.neighborhoodatlas.medicine.[facility].edu/. Last address used for calculation Not [...] 07/01/2025 2:30 PM EST Office Visit Neurology [address] [place] [address] Donald Alberts, DO [address] [place] [address] 6 month follow up documented as of this encounter Visit Diagnoses Not on filedocumented in this encounter Care Teams Primary Care Md Relationship Specialty Start Date End Date Nathan Hartman MD [address] [place] [address] PCP - General Family Medicine 07/29/20 documented as of this encounter
--- OUTSIDE RECORDS SUMMARY | 2025-05-03 10:21 | XMS_ITS | Clinical Summary ---
Author Organization [facility] Address [address] [place] [address] Phone Care Team Providers Care Trainman Name Role Phone Unavailable Primary Care Provider [...]
--- OUTSIDE RECORDS SUMMARY | 2025-05-03 10:22 | XMS_ITS | Encounter Summary ---
Author Organization [facility] Address [address] [place] [address] Care Team Providers Care Laminated Plastics Assembler And Gluer Name Role Phone Nathan Hartman MD Primary Care Provider [phone] Encounter Details Date Type Department Care Team (Late st Contact Info) Description 09/03/2024 Orders Only [facility] [address] [place] [address] Sheridan Frias MD [address] [place] [address] Social History Tobacco Use Types [...] Recorded Patient Health Questionnaire-2 Score 0 02/04/2024 [facility] - Occupational Stress Questionnaire Answer Date [...] EDT Procedure Visit [facility] [address] [place] [address] Ky Santo DPM [address] [place], [place] [phone] documented as of this encounter Procedures Procedure [...] on filedocumented in this encounter Care Teams Laminated Plastics Assembler And Gluer Relationship Specialty Start Date End Date Nathan Hartman MD PCP - General Family Medicine 09/10/23 documented as of this encounter
--- OUTSIDE RECORDS SUMMARY | 2025-05-03 10:22 | XMS_ITS | Encounter Summary ---
Author Organization [facility] Address [address] [place] [address] Care Team Providers Care Scout Executive Name Role Phone Nathan Bolton MD Primary Care Provider Encounter Details Date Type Department Care Team (Late st Contact Info) Description 09/13/2023 Clinisync Result Encounter [facility] External Department Unsolicited Nathan Bolton MD [address] [place] [address] Social History Tobacco Use Types Packs/Day Years [...] often do you attend chur ch or worship services? Never 09/09/2023 Do you belong to any clubs o r organizations such as christian groups, unions, fraternal or athletic groups, or [...] and heating? Not hard at all 09/09/2023 [facility] Occupat ional [...] slept in a retirement (including now)? No 09/09/2023 Sex and Gender Information Value Date Recorded Sex Assigned at Not on file Legal Sex Male 8:32 PM EDT Gender Identity Not on file Sexual Orientation Not on file documented as of this encounter Plan of Treatment Upcoming Encounters Date Type Department Care Team (Late st Contact Info) Description 05/12/2025 1:15 PM EDT Procedure Visit [facility] [address] [place] [address] Ky Santo DPM [address] [place], [place] [address] documented as of this encounter Procedures Procedure Name Priority Date/Time Associated Diagnosis Comments US RIGHT UPPER QUADRANT 09/13/2023 10:05 AM EST documented in this encounter Results * US RIGHT UPPER QUADRANT (09/13/2023 10:05 AM EST) Anatomical Region Laterality Modality Other 09/13/2023 10:0 5 AM EST Narrative 09/13/2023 10:08 AM EST The [address] [address] Ultrasound Report Signed Patient: HERRERA MARTINEZ MR#: [id number] : 1945 Acct:[id number] Age/Sex: 78 / M ADM Date: 09/13/23 Loc: US Attending Dr: Nathan Bolton M.D. Ordering Physician: Nathan Bolton M.D. Date of Service: 09/13/23 Procedure(s): US right upper quadrant Accession Number(s): [id number] cc: Nathan Bolton M.D. The [place] [address] Patient Name: HERRERA MARTINEZ MRN: [id number] date: 1945 Sex: M Assigned Patient Location: US Current Patient Location: US Accession/Order Number: [id number] Exam Date: 09/13/2023 09:12 Report Date: 09/13/2023 [...] Signed By: 09/13/23 1008 DD/ 1005 TD/TT: Cavalry Officer: Procedure Note Radiology, Radiologist, - 09/13/2023 [place] [address] Ultrasound Report Signed Patient: HERRERA MARTINEZ UMR#: [id number] : 1945cct:[id number] Age/Sex: 78 / MADM Date: 09/13/23 Loc: US Attending Dr: Nathan Bolton M.D. Ordering Physician: Nathan Bolton M.D. Date of Service: 09/13/23 Procedure(s): US right upper quadrant Accession Number(s): [id number] cc: Nathan Bolton M.D. [place] [id number] Patient Name: HERRERA MARTINEZ MRN: [id number] date: 1945 Sex: M Assigned Patient Location: US Current Patient Location: US Accession/Order Number: [id number] Exam Date: 09/13/2023 09:12 Report Date: 09/13/2023 [...] M.D. Signed By:09/13/23 1008 DD/ 1005 TD/TT: Cavalry Officer: Nathan Bolton MD [facility] Final Result documented in this encounter Visit Diagnoses Not on filedocumented in this encounter Care Teams Scout Executive Relationship Specialty Start Date End Date Nathan Bolton MD PCP - General Family Medicine 09/10/23 documented as of this encounter
--- OUTSIDE RECORDS SUMMARY | 2025-05-03 10:22 | XMS_ITS | Encounter Summary ---
Author Organization [facility] Address [address] [place] [address] Care Team Providers Care Embroidery Patternmaker Name Role Phone Nathan Hartman MD Primary Care Provider [phone] Source Comments In the event this information is protected by the Federal Confidentiality of Alcohol and Drug AbusePatient Records regulations: The Federal rules restrict any use of the information to criminally investigate or prosecute any alcohol or drug abuse patient.[facility] Encounter Details Date Type Department Care Team (Late st Contact Info) Description 06/17/2024 Patient Msg Neurology [address] [place] [id number] Provider, Ccf A Message from [facility] Social History Tobacco Use Types Packs/Day Years [...] risk 8 12/05/2022 Data from: https://www.neighborhoodatlas.medicine.[facility].edu/. Last address used for calculation [address] 12/05/2022 Sex and Gender Information Value Date Recorded Sex Assigned at Male 03/30/2019 6:28 PM EDT Legal Sex Male 10:46 AM EDT Gender Identity Male 03/30/2019 6:28 PM EDT Sexual Orientation Not on file documented as of this encounter Plan of Treatment Upcoming Encounters Date Type Department Care Team (Late st Contact Info) Description 07/01/2025 2:30 PM EST Office Visit Neurology [address] [place] [address] Donald Alberts, DO [address] [place] [address] 6 month follow up documented as of this encounter Visit Diagnoses Not on filedocumented in this encounter Care Teams Embroidery Patternmaker Relationship Specialty Start Date End Date Nathan Hartman MD [address] [place] [address] PCP - General Family Medicine 07/29/20 documented as of this encounter
--- OUTSIDE RECORDS SUMMARY | 2025-05-03 10:22 | XMS_ITS | Encounter Summary ---
Author Organization [facility] Address [address] [place] [address] Care Team Providers Care Turbine Technician Name Role Phone Nathan Hartman MD Primary Care Provider [phone] Encounter Details Date Type Department Care Team (Late st Contact Info) Description 02/19/2024 Orders Only [facility] [address] [place] [address] Shaikh Harris MD [address] [place] [address] Social History Tobacco Use Types Packs/Day Years [...] often do you attend chur ch or denominational services? Never 11/28/2023 Do you belong to any clubs o r organizations such as restoration groups, unions, fraternal or athletic groups, or [...] 02/04/2024 [facility] Occupat ional [facility] - Occupational Stress Questionnaire Answer [...] EDT Procedure Visit [facility] [address] [place] [address] Ky Santo DPM [address] [place], [place] [address] documented as of this encounter Procedures Procedure [...] on filedocumented in this encounter Care Teams Turbine Technician Relationship Specialty Start Date End Date Nathan Hartman MD PCP - General Family Medicine 09/10/23 documented as of this encounter
--- OUTSIDE RECORDS SUMMARY | 2025-05-03 10:22 | XMS_ITS | Encounter Summary ---
Author Organization [facility] Address [address] [place] [address] Care Team Providers Care Nutrition And Dietetics Instructor Name Role Phone Nathan Hartman MD Primary Care Provider [phone] Source Comments In the event this information is protected by the Federal Confidentiality of Alcohol and Drug AbusePatient Records regulations: The Federal rules restrict any use of the information to criminally investigate or prosecute any alcohol or drug abuse patient.[facility] Encounter Details Date Type Department Care Team (Late st Contact Info) Description 01/15/2020 Patient Msg Neurology [address] [place] [address] Donald Alberts, DO [address] [place] [phone] Request an Appointment Social History Tobacco Use [...] 07/01/2025 2:30 PM EST Office Visit Neurology [address] [facility] [place] [address] Donald Alberts, DO [address] [place] [address] 6 month follow up documented as of this encounter Visit Diagnoses Not on filedocumented in this encounter Care Teams Nutrition And Dietetics Instructor Relationship Specialty Start Date End Date Nathan Hartman MD [address] [place] [address] PCP - General Family Medicine 07/29/20 documented as of this encounter
--- OUTSIDE RECORDS SUMMARY | 2025-05-03 10:22 | XMS_ITS | Encounter Summary ---
Author Organization [facility] Address [address] [place] [address] Care Team Providers Care Application Consultant Name Role Phone Nathan Hartman MD Primary Care Provider [phone] Encounter Details Date Type Department Care Team (Late st Contact Info) Description 11/05/2024 Orders Only [facility] [address] [place] [address] Nathan Hartman MD [address] [place] [address] Social History Tobacco Use Types Packs/Day Years [...] often do you attend chur ch or catholic services? Never 11/28/2023 Do you belong to [...] Recorded Patient Health Questionnaire-2 Score 0 02/04/2024 [facility] Questionnaire Answer Date [...] in a custodial (including now)? No 11/28/2023 Sex and Gender Information Value Date Recorded Sex Assigned at Not on file Legal Sex Male 8:32 PM EDT Gender Identity Not on file Sexual Orientation Not on file documented as of this encounter Plan of Treatment Upcoming Encounters Date Type Department Care Team (Late st Contact Info) Description 05/12/2025 1:15 PM EDT Procedure Visit [facility] [address] [place] [address] Ky Santo DPM [address] [place], [place] [address] documented as of this encounter Visit Diagnoses Not on filedocumented in this encounter Care Teams Application Consultant Relationship Specialty Start Date End Date Nathan Hartman MD PCP - General Family Medicine 09/10/23 documented as of this encounter
--- OUTSIDE RECORDS SUMMARY | 2025-05-03 10:22 | XMS_ITS | Encounter Summary ---
Author Organization [facility] Address [address] [place] [address] Care Team Providers Care Dairy Scientist Name Role Phone Laine Bolton MD Primary Care Provider [phone] Encounter Details Date Type Department Care Team (Late st Contact Info) Description 09/13/2023 Clinisync Result Encounter [facility] External Department Unsolicited Laine Bolton MD [address] [place] [address] Social History Tobacco Use Types Packs/Day Years [...] any clubs o r organizations such as jewish groups, unions, fraternal or athletic groups, or [...] and heating? Not hard at all 09/09/2023 [facility] - Occupational [...] place to sleep or slept in a fci (including now)? No 09/09/2023 Sex and Gender Information Value Date Recorded Sex Assigned at Not on file Legal Sex Male 8:32 PM EDT Gender Identity Not on file Sexual Orientation Not on file documented as of this encounter Plan of Treatment Upcoming Encounters Date Type Department Care Team (Late st Contact Info) Description 05/12/2025 1:15 PM EDT Procedure Visit [facility] [address] [place] [address] Ky Santo DPM [address] [place], [place] [id number] documented as of this encounter Procedures Procedure Name Priority Date/Time Associated Diagnosis Comments XR CINERADIOGRAPHY 09/13/2023 11 :01 AM EST documented in this encounter Results * XR CINERADIOGRAPHY (09/13/2023 11:01 AM EST) Anatomical Region Laterality Modality Other 09/13/2023 11:0 1 AM EST Narrative 09/13/2023 11:03 AM EST The [address] [address] Fluoroscopy Report Signed Patient: HERRERA MARTINEZ MR#: [id number] : 1945 Acct:[id number] Age/Sex: 78 / M ADM Date: 09/13/23 Loc: US Attending Dr: Laine Bolton M.D. Ordering Physician: Laine Bolton M.D. Date of Service: 09/13/23 Procedure(s): FL cineradiography Accession Number(s): [id number] cc: Laine Bolton M.D. The [address] [address] Patient Name: HERRERA MARTINEZ MRN: [id number] date: 1945 Sex: M Assigned Patient Location: US Current Patient Location: US Accession/Order Number: [id number] Exam Date: 09/13/2023 09:45 Report Date: 09/13/2023 [...] Signed By: 09/13/23 1103 DD/ 1101 TD/TT: Literary Writer: Procedure Note Radiology, Radiologist, MD - 09/13/2023 [place] [address] Fluoroscopy Report Signed Patient: HERRERA MARTINEZ UMR#: [id number] : 7Acct:[id number] Age/Sex: 78 / MADM Date: 09/13/23 Loc: US Attending Dr: Laine Bolton M.D. Ordering Physician: Laine Bolton M.D. Date of Service: 09/13/23 Procedure(s): FL cineradiography Accession Number(s): [id number] cc: Laine Bolton M.D. The [place] [id number] Patient Name: HERRERA MARTINEZ MRN: [id number] date: 1945 Sex: M Assigned Patient Location: US Current Patient Location: US Accession/Order Number: [id number] Exam Date: 09/13/2023 09:45 Report Date: 09/13/2023 [...] M.D. Signed By:09/13/23 1103 DD/ 1101 TD/TT: Literary Writer: Laine Bolton MD [facility] Final Result documented in this encounter Visit Diagnoses Not on filedocumented in this encounter Care Teams Dairy Scientist Relationship Specialty Start Date End Date Laine Bolton MD PCP - General Family Medicine 09/10/23 documented as of this encounter
--- OUTSIDE RECORDS SUMMARY | 2025-05-03 10:22 | XMS_ITS | Encounter Summary ---
Author Organization [facility] Address [address] [place] [address] Care Team Providers Care Joiner Apprentice Name Role Phone Nathan Hartman MD Primary Care Provider Source Comments In the event this information is protected by the Federal Confidentiality of Alcohol and Drug AbusePatient Records regulations: The Federal rules restrict any use of the information to criminally investigate or prosecute any alcohol or drug abuse patient.[facility] Encounter Details Date Type Department Care Team (Late st Contact Info) Description 04/08/2020 Patient Msg Neurology [address] [place], [place] [phone] Provider, Ccf Follow up appointment needed Social [...] 07/01/2025 2:30 PM EST Office Visit Neurology [address] [place] [address] Donald Alberts, DO [address] [place] [address] 6 month follow up documented as of this encounter Visit Diagnoses Not on filedocumented in this encounter Care Teams Joiner Apprentice Relationship Specialty Start Date End Date Nathan Hartman MD [address] [place] [address] PCP - General Family Medicine 07/29/20 documented as of this encounter
--- OUTSIDE RECORDS SUMMARY | 2025-05-03 10:22 | XMS_ITS | Clinical Summary ---
Author Organization [facility] Address [id number] [address] [place] [address] Care Team Providers Care Lithostripper Name Role Phone Nathan Hartman MD Primary Care Provider [phone] Allergies No known active allergies Medications aspirin [...] mouth nightly Indications: high cholesterol. 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 (pt does bruse/bleed easily--chcf issue) ==== 12/21/2020 ==== history gross hematuria. [...] EST Telemedicine [facility] [address] [place] [address] [place] [address] Reagan Shafer MD [address] [place] [address] Health Maintenance Due Date Last Done [...] Not [place] [address] [employer] MEDICARE Advance Directives Documents on File Type Date Recorded Patient Director Payer Expl anation Living Will 06/20/2021 9:38 AM Durable Power of Corporate Giving Manager 06/20/2021 9:37 AM Care Teams Lithostripper Relationship Specialty Start Date End Date Nathan Hartman MD PCP - General Family Medicine 11/09/20
--- OUTSIDE RECORDS SUMMARY | 2025-05-03 10:22 | XMS_ITS | Encounter Summary ---
Author Organization [facility] Address [address] [place] [address] Care Team Providers Care Sheet Metal Superintendent Name Role Phone Nathan Hartman MD Primary Care Provider [phone] Nathan Hartman MD Primary Care Provider [phone] Encounter Details Date Type Department Care Team (Late st Contact Info) Description 09/02/2023 Orders Only [facility] [address] [place] [address] Nathan Hartman MD [address] [place] [address] Social History Tobacco Use Types Packs/Day Years [...] Procedure Visit [facility] [address] [place] [address] Ky Santo, MARK [address] [place] [address] documented as of this encounter Procedures Procedure Name Priority Date/Time Associated Diagnosis Comments HEMOGLOBIN A1C Routine 06/24/2023 12:46 PM EST documented in this encounter Results * Hemoglobin A1c (06/24/2023 12:46 PM EST) Blood Venous blood specimen / Unknown Natahn Hartman MD LAB BLOOD ORDERABLES Final Resul t documented in this encounter Visit Diagnoses Not on filedocumented in this encounter Care Teams Sheet Metal Superintendent Relationship Specialty Start Date End Date Nathan Hartman MD PCP - General Family Medicine 05/08/23 09/09/23 Nathan Hartman MD PCP - General Family Medicine 09/10/23 documented as of this encounter
--- OUTSIDE RECORDS SUMMARY | 2025-05-03 10:22 | XMS_ITS | Encounter Summary ---
Author Organization [facility] Address [address] [place] [address] Care Team Providers Care Film Critic Name Role Phone Nathan Hartman MD Primary Care Provider [phone] Source Comments In the event this information is protected by the Federal Confidentiality of Alcohol and Drug AbusePatient Records regulations: The Federal rules restrict any use of the information to criminally investigate or prosecute any alcohol or drug abuse patient.[facility] Encounter Details Date Type Department Care Team (Late st Contact Info) Description 11/12/2024 Patient Msg Neurology [address] [place] [id number] Provider, Ccdorcas Research Helps Us Understand Parkinson's [...] is lower risk 8 12/05/2022 Data from: https://www.neighborhoodatlas.medicine.[facility].edu/. Last address used for calculation [address] 12/05/2022 Sex and Gender [...] 07/01/2025 2:30 PM EST Office Visit Neurology [address] [place] [address] Donald Alberts, DO [address] [place] [address] 6 month follow up documented as of this encounter Visit Diagnoses Not on filedocumented in this encounter Care Teams Film Critic Relationship Specialty Start Date End Date Nathan Hartman MD [address] [place] [address] PCP - General Family Medicine 07/29/20 documented as of this encounter
--- OUTSIDE RECORDS SUMMARY | 2025-05-03 10:22 | XMS_ITS | Encounter Summary ---
Author Organization [facility] Address [address] [place] [address] Care Team Providers Care Ride Attendant Name Role Phone Nathan Hartman MD Primary Care Provider [phone] Source Comments In the event this information is protected by the Federal Confidentiality of Alcohol and Drug AbusePatient Records regulations: The Federal rules restrict any use of the information to criminally investigate or prosecute any alcohol or drug abuse patient.[facility] Encounter Details Date Type Department Care Team (Late st Contact Info) Description 01/12/2020 Patient Msg Neurology [address] [place] [address] Donald Alberts, DO [address] [place] [address] RE: Request an Appointment Social [...] 07/01/2025 2:30 PM EST Office Visit Neurology [address] [place] [address] Donald Alberts, DO [address] [place] [address] 6 month follow up documented as of this encounter Visit Diagnoses Not on filedocumented in this encounter Care Teams Ride Attendant Relationship Specialty Start Date End Date Nathan Hartman MD [address] [place] [address] PCP - General Family Medicine 07/29/20 documented as of this encounter
--- OUTSIDE RECORDS SUMMARY | 2025-05-03 10:22 | XMS_ITS | Encounter Summary ---
Author Organization [facility] Address [address] [place] [address] Care Team Providers Care Auto Carrier Driver Name Role Phone Nathan Hartman MD Primary Care Provider [phone] Source Comments In the event this information is protected by the Federal Confidentiality of Alcohol and Drug AbusePatient Records regulations: The Federal rules restrict any use of the information to criminally investigate or prosecute any alcohol or drug abuse patient.[facility] Encounter Details Date Type Department Care Team (Late st Contact Info) Description 09/08/2024 Patient Msg Neurology [address] [place] [phone] Provider, Eleuterio A Message from [facility] Social History Tobacco [...] is lower risk 8 12/05/2022 Data from: https://www.neighborhoodatlas.medicine.[facility].edu/. Last address used for calculation [address] 12/05/2022 Sex and Gender Information Value Date Recorded Sex Assigned at Male 03/30/2019 6:28 PM EDT Legal Sex Male 10:46 AM EDT Gender Identity Male 03/30/2019 6:28 PM EDT Sexual Orientation Not on file documented as of this encounter Plan of Treatment Upcoming Encounters Date Type Department Care Team (Late st Contact Info) Description 07/01/2025 2:30 PM EST Office Visit Neurology [address] [place] [address] Donald Alberts, DO [address] [place] [address] 6 month follow up documented as of this encounter Visit Diagnoses Not on filedocumented in this encounter Care Teams Auto Carrier Driver Relationship Specialty Start Date End Date Nathan Hartman MD [address] [place] [address] PCP - General Family Medicine 07/29/20 documented as of this encounter
--- OUTSIDE RECORDS SUMMARY | 2025-05-03 10:22 | XMS_ITS | Encounter Summary ---
Author Organization [facility] Address [address] [place] [address] Care Team Providers Care Manager Rail Name Role Phone Nathan Hartman MD Primary Care Provider [phone] Source Comments In the event this information is protected by the Federal Confidentiality of Alcohol and Drug AbusePatient Records regulations: The Federal rules restrict any use of the information to criminally investigate or prosecute any alcohol or drug abuse patient.[facility] Encounter Details Date Type Department Care Team (Late st Contact Info) Description 02/18/2025 Patient Msg Neurology [address] [place] [phone] Provider, Eleuterio Am I an [place] Candidate for New Therapies in Parkinson's Disease? [...] lower risk 8 12/05/2022 Data from: https://www.neighborhoodatlas.medicine.[facility].edu/. Last address used for calculation [address] [...] 07/01/2025 2:30 PM EST Office Visit Neurology [address] [place] [address] Donald Alberts, DO [address] [place] [address] 6 month follow up documented as of this encounter Visit Diagnoses Not on filedocumented in this encounter Care Teams Manager Rail Relationship Specialty Start Date End Date Nathan Hartman MD [address] [place] [address] PCP - General Family Medicine 07/29/20 documented as of this encounter
--- OUTSIDE RECORDS SUMMARY | 2025-05-03 10:22 | XMS_ITS | Encounter Summary ---
Author Organization [facility] Address [address] [place] [address] Care Team Providers Care Insurance Underwriter Name Role Phone Nathan Hartman MD Primary Care Provider [phone] Nathan Hartman MD Primary Care Provider [phone] Encounter Details Date Type Department Care Team (Late st Contact Info) Description 05/08/2023 Abstract [facility] [address] [place] [address] Ky Santo DPM [address] [facility] [place], [place] [phone] Social History Tobacco Use Types Packs/Day Years [...] Encounters Date Type Department Care Team (Late Contact Info) Description 05/12/2025 1:15 PM EDT Procedure Visit [facility] [address] [place] [address] Ky Santo DPM [address] [place], [place] [address] documented as of this encounter Visit Diagnoses Not on filedocumented in this encounter Care Teams Insurance Underwriter Relationship Specialty Start Date End Date Nathan Hartman MD PCP - General Family Medicine 05/08/23 09/09/23 Nathan Hartman MD PCP - General Family Medicine 09/10/23 documented as of this encounter
--- OUTSIDE RECORDS SUMMARY | 2025-05-03 10:22 | XMS_ITS | Encounter Summary ---
Author Organization [facility] Address [address] [place] [address] Care Team Providers Care Deckhand Name Role Phone Nathan Hartman MD Primary Care Provider Encounter Details Date Type Department Care Team (Late st Contact Info) Description 02/18/2024 Clinisync Result Encounter [facility] External Department Unsolicited Shaikh Harris MD [address] [place] [address] Social History Tobacco Use Types Packs/Day Years [...] often do you attend chur ch or advent services? Never 11/28/2023 Do you belong to [...] Recorded Patient Health Questionnaire-2 Score 0 02/04/2024 [facility] - [...] EDT Procedure Visit [facility] [address] [place] [address] Ky Santo DPM [address] [place], [place] [address] documented as of this encounter Procedures Procedure Name Priority Date/Time Associated Diagnosis Comments XR CHEST 2V 02/18/2024 6:30 AM EDT documented in this encounter Results * XR CHEST 2V (02/18/2024 6:30 AM EDT) Anatomical Region Laterality Modality Other 02/18/2024 6:30 AM EDT Narrative 02/18/2024 6:33 AM EDT The [address] [address] XRay Report Signed Patient: HERRERA MARTINEZ MR#: [id number] : 1945 Acct:[id number] Age/Sex: 78 / M ADM Date: 02/17/24 Loc: RAD Attending Dr: Shaikh Kimberly Bahena Ordering Physician: Shaikh Shruti Harris Date of Service: 02/17/24 Procedure(s): XR chest 2V Accession Number(s): [id number] cc: Shaikh Shruti Harrsi; Nathan Hartman M.D. The [place] [address] Patient Name: HERRERA MARTINEZ MRN: [id number] date: 1945 Sex: M Assigned Patient Location: [facility] Current Patient Location: Accession/Order Number: [id number] Exam Date: 02/17/2024 10:20 Report Date: 02/18/2024 06:30 At the request of: SHAIKH KIMBERLY Procedure: XR chest 2V EXAMINATION: XR chest [...] M.D. Signed By: 02/18/2433 DD/ 9 TD/TT: Medical Instrument Technician: Procedure Note Radiology, Radiologist, - 02/18/2024 [place] [address] XRay Report Signed Patient: HERRERA MARTINEZ UMR#: [id number] : 1945cct:[id number] Age/Sex: 78 / MADM Date: 02/17/24 Loc: RAD Attending Dr: Shaikh Kimberly Bahena Ordering Physician: Shaikh Shruti Harris Date of Service: 02/17/24 Procedure(s): XR chest 2V Accession Number(s): [id number] cc: Shaikh Shruti Harris; Nathan Hartman M.D. [place] [id number] Patient Name: HERRERA MARTINEZ MRN: [id number] date: 1945 Sex: M Assigned Patient Location: [facility] Current Patient Location: Accession/Order Number: [id number] Exam Date: 02/17/2024 10:20 Report Date: 02/18/2024 06:30 At the request of: SHAIKH KIMBERLY Procedure: XR chest 2V EXAMINATION: XR chest [...] Perez M.D. Signed By:02/18/2433 DD/ 9 TD/TT: Medical Instrument Technician: Shaikh Kimberly ADAM [facility] Final Result documented in this encounter Visit Diagnoses Not on filedocumented in this encounter Care Teams Deckhand Relationship Specialty Start Date End Date Nathan Hartman MD PCP - General Family Medicine 09/10/23 documented as of this encounter
--- OUTSIDE RECORDS SUMMARY | 2025-05-03 10:22 | XMS_ITS | Encounter Summary ---
Author Organization [facility] Address [address] [place] [address] Care Team Providers Care Mud Boss Name Role Phone Nathan Hartman MD Primary Care Provider [phone] Encounter Details Date Type Department Care Team (Late st Contact Info) Description 11/09/2024 Results Follow-Up [facility] [address] [facility] [place] [address] Sofy Bo MA MLR HEMOGLOBIN A1C Social [...] often do you attend chur ch or mosque services? Never 11/28/2023 Do you belong to [...] Recorded Patient Health Questionnaire-2 Score 0 02/04/2024 [facility] - Occupational Stress Questionnaire Answer Date [...] place to sleep or slept in a prison (including now)? No 11/28/2023 Sex and Gender Information Value Date Recorded Sex Assigned at Not on file Legal Sex Male 8:32 PM EDT Gender Identity Not on file Sexual Orientation Not on file documented as of this encounter Plan of Treatment Upcoming Encounters Date Type Department Care Team (Late st Contact Info) Description 05/12/2025 1:15 PM EDT Procedure Visit [facility] [address] [place] [address] Ky Santo DPM [address] [place], [place] [address] documented as of this encounter Visit Diagnoses Not on filedocumented in this encounter Care Teams Mud Boss Relationship Specialty Start Date End Date Nathan Hartman MD PCP - General Family Medicine 09/10/23 documented as of this encounter
--- OUTSIDE RECORDS SUMMARY | 2025-05-03 10:22 | XMS_ITS | Encounter Summary ---
Author Organization [facility] Address [address] [place] [address] Care Team Providers Care Business Librarian Name Role Phone Nathan Hartman MD Primary Care Provider [phone] Encounter Details Date Type Department Care Team (Late st Contact Info) Description 09/24/2024 Orders Only [facility] [address] [place] [address] Nathan Hartman MD [address] [place] [address] Social History Tobacco Use Types Packs/Day Years [...] any clubs o r organizations such as confucianist groups, unions, fraternal or athletic groups, or [...] Recorded Patient Health Questionnaire-2 Score 0 02/04/2024 [facility] Questionnaire Answer Date [...] place to sleep or slept in a halfway (including now)? No 11/28/2023 Sex and Gender Information Value Date Recorded Sex Assigned at Not on file Legal Sex Male 8:32 PM EDT Gender Identity Not on file Sexual Orientation Not on file documented as of this encounter Plan of Treatment Upcoming Encounters Date Type Department Care Team (Late st Contact Info) Description 05/12/2025 1:15 PM EDT Procedure Visit [facility] [address] [place] [address] Ky Santo DPM [address] [place], [place] [phone] documented as of this encounter Procedures Procedure Name Priority Date/Time Associated Diagnosis Comments ELECTROCARDIOGRAM REPORT Routine 025 8:40 AM EST documented in this encounter Results * Electrocardiogram Report (09/23/2024 8:40 AM EST) us Nathan Hartman MD IN CLINIC/BEDSIDE ORDERABLES Fin al Result documented in this encounter Visit Diagnoses Not on filedocumented in this encounter Care Teams Business Librarian Relationship Specialty Start Date End Date Nathan Hartman MD PCP - General Family Medicine 09/10/23 documented as of this encounter
--- OUTSIDE RECORDS SUMMARY | 2025-05-03 10:22 | XMS_ITS | Encounter Summary ---
Author Organization [facility] Address [address] [place] [address] Care Team Providers Care District Leader Name Role Phone Nathan Bolton MD Primary Care Provider [phone] Encounter Details Date Type Department Care Team (Late st Contact Info) Description 09/13/2023 Clinisync Result Encounter [facility] External Department Unsolicited Nathan Bolton MD [address] [place] [address] Social History Tobacco Use Types Packs/Day Years [...] often do you attend chur ch or caodaism services? Never 09/09/2023 Do you belong to any clubs o r organizations such as taoism groups, unions, fraternal or athletic groups, or [...] EDT Procedure Visit [facility] [address] [place] [address] Ky Snato DPM [address] [place], [place] [address] documented as of this encounter Procedures Procedure Name Priority Date/Time Associated Diagnosis Comments FL UPPER GI W AIR* 09/13/2023 11 :01 AM EST documented in this encounter Results * FL UPPER GI W AIR* (09/13/2023 11:01 AM EST) Anatomical Region Laterality Modality Radiographic Cynthia ging 09/13/2023 11:0 1 AM EST Narrative 09/13/2023 11:04 AM EST The [address] [address] Fluoroscopy Report Signed Patient: HERRERA MARTINEZ MR#: [id number] : 1945 Acct:[id number] Age/Sex: 78 / M ADM Date: 09/13/23 Loc: US Attending Dr: Nathan Naderer M.D. Ordering Physician: Nathan Bolton M.D. Date of Service: 09/13/23 Procedure(s): FL upper GI w air Accession Number(s): [id number] cc: Nathan Bolton M.D. The [place] [address] Patient Name: HERRERA MARTINEZ MRN: [id number] date: 1945 Sex: M Assigned Patient Location: US Current Patient Location: US Accession/Order Number: [id number] Exam Date: 09/13/2023 09:45 Report Date: 09/13/2023 [...] Signed By: 09/13/23 1104 DD/ 1101 TD/TT: Can Intake Worker: Procedure Note Radiology, Radiologist, MD - 09/13/2023 [place] [address] Fluoroscopy Report Signed Patient: HERRERA MARTINEZ UMR#: [id number] : 1945cct:[id number] Age/Sex: 78 / MADM Date: 09/13/23 Loc: US Attending Dr: Nathan Bolton M.D. Ordering Physician: Nathan Bolton M.D. Date of Service: 09/13/23 Procedure(s): FL upper GI w air Accession Number(s): [id number] cc: Nathan Bolton M.D. The [address] [address] Patient Name: HERRERA MARTINEZ MRN: [id number] date: 1945 Sex: M Assigned Patient Location: US Current Patient Location: US Accession/Order Number: [id number] Exam Date: 09/13/2023 09:45 Report Date: 09/13/2023 [...] M.D. Signed By:09/13/23 1104 DD/ 1101 TD/TT: Can Intake Worker: Nathan Bolton MD IMG XR PROCEDURES Final Result documented in this encounter Visit Diagnoses Not on filedocumented in this encounter Care Teams District Leader Relationship Specialty Start Date End Date Nathan Bolton MD PCP - General Family Medicine 09/10/23 documented as of this encounter
--- OUTSIDE RECORDS SUMMARY | 2025-05-03 10:22 | XMS_ITS | Encounter Summary ---
Author Organization [facility] Address [address] [place] [address] Care Team Providers Care Computing Systems Mechanic Name Role Phone Nathan Hartman MD Primary Care Provider [phone] Encounter Details Date Type Department Care Team (Late st Contact Info) Description 09/15/2024 Orders Only [facility] [address] [place] [address] Unallocated, [facility] Provider, [address], [place] [id number] Social History Tobacco Use Types Packs/Day Years [...] often do you attend chur ch or rastafari services? Never 11/28/2023 Do you belong to any clubs o r organizations such as advent groups, unions, fraternal or athletic groups, or [...] Patient Health Questionnaire-2 Score 0 [facility]20[facility] Questionnaire Answer Date [...] place to sleep or slept in a fdc (including now)? No 11/28/2023 Sex and Gender Information Value Date Recorded Sex Assigned at Not on file Legal Sex Male 8:32 PM EDT Gender Identity Not on file Sexual Orientation Not on file documented as of this encounter Plan of Treatment Upcoming Encounters Date Type Department Care Team (Late st Contact Info) Description 05/12/2025 1:15 PM EDT Procedure Visit [facility] [address] [place] [address] Ky Santo DPM [address] [place] [address] documented as of this encounter Procedures Procedure [...] on filedocumented in this encounter Care Teams Computing Systems Mechanic Relationship Specialty Start Date End Date Nathan Hartman MD PCP - General Family Medicine 09/10/23 documented as of this encounter
--- OUTSIDE RECORDS SUMMARY | 2025-05-03 10:22 | XMS_ITS | Encounter Summary ---
Author Organization [facility] Address [address] [place] [address] Care Team Providers Care Hospitalist Name Role Phone Nathan Hartman MD Primary Care Provider [phone] Encounter Details Date Type Department Care Team (Late st Contact Info) Description 11/04/2024 Orders Only [facility] [address] [facility] [place] [address] Jamshid, Darlene, OD [address], [place] [id number] Social History Tobacco Use Types Packs/Day Years [...] often do you attend chur ch or sabianism services? Never 11/28/2023 Do you belong to [...] Recorded Patient Health Questionnaire-2 Score 0 [facility] Answer Date [...] slept in a jail (including now)? No 11/28/2023 Sex and Gender Information Value Date Recorded Sex Assigned at Not on file Legal Sex Male 8:32 PM EDT Gender Identity Not on file Sexual Orientation Not on file documented as of this encounter Plan of Treatment Upcoming Encounters Date Type Department Care Team (Late st Contact Info) Description 05/12/2025 1:15 PM EDT Procedure Visit [facility] [address] [place] [address] Ky Santo DPM [address] [place] [address] documented as of this encounter Procedures Procedure [...] on filedocumented in this encounter Care Teams Hospitalist Relationship Specialty Start Date End Date Nathan Hartman MD PCP - General Family Medicine 09/10/23 documented as of this encounter
--- OUTSIDE RECORDS SUMMARY | 2025-05-03 10:22 | XMS_ITS | Encounter Summary ---
Author Organization [facility] Address [address] [place] [address] Care Team Providers Care Principal Security Architect Name Role Phone Nathan Hartman MD Primary Care Provider [phone] Source Comments In the event this information is protected by the Federal Confidentiality of Alcohol and Drug AbusePatient Records regulations: The Federal rules restrict any use of the information to criminally investigate or prosecute any alcohol or drug abuse patient.[facility] Encounter Details Date Type Department Care Team (Late st Contact Info) Description 07/01/2019 Patient Msg Neurology [address] [place] [address] Donald Alberts, DO [address] [place] [address] Appointment Request Social History Tobacco [...] 07/01/2025 2:30 PM EST Office Visit Neurology [address] [place] [address] Donald Alberts, DO [address] [place] [address] 6 month follow up documented as of this encounter Visit Diagnoses Not on filedocumented in this encounter Care Teams Principal Security Architect Relationship Specialty Start Date End Date Nathan Hartman MD [address] [place] [address] PCP - General Family Medicine 07/29/20 documented as of this encounter
--- OUTSIDE RECORDS SUMMARY | 2025-05-03 10:28 | XMS_ITS | CCD ---
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 Name Role Phone Nathan Bolton Primary Care Provider GUAJARDO ., DR NIKHIL Ross Admitting Unavailable GUAJARDO ., DR NIKHIL Ross Attending Unavailable LE .DANIEL Consulting Unavailable NADERER, DR NATHAN Alonso Primary Care Unavailable GUAJARDO ., DR NIKHIL Ross Admitting Unavailable GUAJARDO ., DR NIKHIL oRss Consulting Unavailable GUAJARDO ., DR NIKHIL Ross [...] Care Provider Nathan Bolton Primary Care Provider [phone] YOBANY GONZALES Referring Unavailable NATHAN BOLTON Primary Care Unavailable YOBANY GONZALES Attending Unavailable NATHAN BOLTON Referring Unavailable HOANG, NATHAN Primary Care Unavailable Nathan Bolton MD Primary Care Provider NATHAN BOLTON Primary Care Unavailable Gostkocecy DO, [...] insulin ([facility]) Take 1 tablet (10 mg) by mouth [...] by mouth in the morning. 0 Active obhwzzix-qqwv-SN-calcium &mi ns (THERAGRAN-M) 9 mg iron-400 mcg tablet (1 source) puxfazbj-jhjl-ZW -calcium &mins (THERAGRAN-M) 9 mg iron-400 mcg [...] 2 09/10/2023 Active take 1 capsule by [facility] twice daily in the evening omeprazole (PRILOSEC) 40 mg capsule Take 40 mg by mouth two times a day. One in am and one at pm Active polyethylene glycol 3350 18312 mg powder for oral solution (8 sources) [...] Active Start: 03-06-2023 [facility] daily rasagiline (AZILECT) 1 mg tab Take 1 tablet by mouth once daily. 90 tablet 3 03/06/2023 Active Start: 01-15-2020 End: 09-10-2022 take 1 tablet by mouth once daily rasagiline (AZILECT) 1 mg tab Take 1 tablet by mouth once daily. 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 CURRENT DRUG THERAPY] Onset: 12-15-2022 Episodic Other aftercare (1 source) intermediate (current) use of aspirin; Translations: [CORRECTION CURRENT USE OF ASPIRIN] Onset: 12-15-2022 Episodic Other aftercare (1 source) intermediate (current) use of oral hypoglycemic drugs; Translations: [CORRECTION USE ORAL HYPOGLYCEMIC DX] Onset: 12-15-2022 Episodic [...] current use of drug therapy; Translations: [Other retirement (current) drug therapy] Onset: 12-02-2023 12-02-2023 Episodic Other aftercare (1 source) Patient encounter status; Translations: [Other continuous churn buttermaker (current) drug therapy] Onset: 12-02-2023 12-02-2023 Episodic [...] Test Name Value Interpretation Reference Range Facility [facility] 12-17-2024 CNOV Office Visit (NRESAV) HERRERA WETZEL ([id number]) 1945 M Date Time Provider Department 12/17/24 1:30 PM DONALD ALBERTS NRESAV During your visit today, we recorded the following information about you: Pulse Blood pressure 68/minute 101/64 Donald Alberts, DO 12/17/2024 2:53 PM Signed [facility] - FOLLOW UP EVALUATION Recording using CreateTrips software for draft documentation of the visit was discussed with the patient/authorized new accounts representative; all questions welcomed and answered. Patient/authorized new accounts representative agreed to proceed Nathan Bolton MD [address] [facility] [address] Dear Nathan Bolton MD: I had the [...] physical therapy sessions twice a week in [place] and has previously engaged in voice therapy, which he plans to resume. He uses a U-Step walker, which he finds beneficial. His is considering enrolling him in [employer] classes at the [facility] in [place] to maintain his physical activity and social [...] and menta (more content not included)... Normal [facility] MLR HEMOGLOBIN A1Con 025 Glucose [Mass/Vol] 169 mg/dL [facility] HbA1c (Bld) [Mass fraction] 7.5 % High 4.5 - 6.2 % [facility] Comment on above: ADA RECOMMENDED LIMI T 4.0 - 6.0 ADA THERAPEUTIC TARGET < 7.0 ACTION SUGGESTED > 7.0 Interpretation and review of laboratory results Abnormal [facility] Provider Orderson 07-15-2024 Provider Orders [id number] #[id number] [facility] [place] 07-14-2024 [facility] Telephone (NRESAV) HERRERA WETZEL ([id number]) 1945 M Date Time Provider Department 07/14/24 DONALD ALBERTS During your visit today, we recorded the following information about you: Kathleen Flanagan LPN 07/14/2024 3:15 PM Addendum 07/14/2024 Debora MIR received from [employer]. Dr. Alberts reviewed and signed. POC securely [...] Encounter Status:Closed by KATHLEEN FLANAGAN on 07/14/24 [facility] Coding Summaryon 06-30-2024 Coding Summary HTMLBase 64 CclnpxnqJVd8wFk+PGhl YWQ+QD7WICKrX75wwAXa oI6nB5RDUNjRTllgBEDU TJuZFpRqydWiHH8tsBDk ZXJu IC8+FX7zJCTzPqxrpKBb y2X8vFE2Z47izl6rYJgb nXP6HHDhFqUhskmey5xu jSj6KWkeTugnNcSe BNBrfK75KXG8dH71Ln18 oIGwxWYlo9spsSa2TuOz CLAhHRF9hHbhUVaid9Rk XKFcL82jhOEyu6O8 IGNvbGxhcHNlOyBlbXB0 vG0fIHfptlhjh2awtlvj Upc3rn47uNXbq3J6lMI5 Z5AaliD3QNHwbTNv OsshgJIQiC5jwmfae2sc ilfdPwQjDYZfNXq3FYk9 OADehXsyBtJoTX60YOQ0 XPXvtiZkC1OjWESq cVsiWfE2p0J6Jg4PE2IB EbsiB8YNORTZIWdooCB+ EY93ss43R4ApOvmyRad5 CXSnVTY0aAY4fH6t CNAwNWgek3W2yQQ1K8Ju psBgih5id4nbBPYzZVbi W96jsBVku3W3IAWdqQR9 YJGumTviJzIuqN00 Oyc+RWRjgOazx0NzNufm u9onx7aofAa7VqpmATWl loGdjMooLUI9n8AbKb3g KMLpkCY5hRK1dN1x TgCrVdD5RHqcY596QxId sWDxKsnmB09zV8NkaMD+ ISZtOdx5HRHjoPgmKY8d W4ZrJAWauoksiFAl yJrpJG3xFLKsaymbNZEt aQ1hERFoO1j7HnQzVcR8 BIkmG7CqODQsyxtfMq22 lD8pBwDlArR7ZImk O1WfvaX7RMTbmJGzBDro COB9L22rh3P2EIBlGSOh NQI1qAM7qH4fzXjrwxvh bGVmdDsgdmVydGlj JMsxTIogR918WSPxgJaf PkNvZGluZyBEYXRlOiAg MTIvMDMvMjAyNDwvdGQ+ EMVtUXQ2wGxgPXLb kFXnNQogIa0fcAdegCer OK1jZUTuwpirZNKmtR4e VQFazCRqqZyjGO6vINVm yksxf177JzEzCOR8 LXElcAQqA8FlnR6vVoDo SZGmDNJzZ3WptIMmELoz X137NHbuQoS1DFTcviAa A2IcHTFjqBetBgI9 e7U6Pp4Ye0IbunvvR4Sn oUXxPiHrHcehUNz1W7Az PjwvdHI+NJ03RWJlEW67 BAi2DQW8sUfaEMzo IJDlU2BtwU2qByPdXGZy ZGRkOyc+PHRhYmxlIHdp ZHRoPScxMDAlJyBzdHls MT3bUl8vFDZnSKOs rFhxmUFgWpKlh7nkSTBu YGjyDK0zlPwhO2GvvQO1 ZBWzx5k7Ij03H14gE1Cu dXA+YCGncSP7pQE3 sE0qKpTmUvP8YCkdN399 MnUbvUDkHndwe8lzx9da vLz2DbN3OZSldzSaeCpp JIE8i1WbWa89O21h IHdpZHRoPSIxNSUiIHZh zPczly3rnU1xCu8+PGNv kRS8oNQ1eE4xKyYqZrP8 YZeyZ129GwTtxWOr Pzugp4usi2kykSk1GuIj FXAktaUypBduPQM5x7Cq Pq33X5MjlWcrw5BbGyf1 ai03eIMpk5W4jEH1 Q9GpFABrjdorpXGniBnt CN8eRITwgyyvZZNcqJ3s FKNhE0m3FhQbYhD5CWby E3BppxY1FCAjqZDv GOUfvBRQhB2ayqrmh0wh gownIeTsVXVcSSk9TOe6 DHXlsZhiOhTdISR6JyL8 NLU4sRQlyA1chWzx qkjfbF5zUff+RMD6oKJj tSNUXB6qFvwnlXF+PHRk ZCB9zZrpBZguEBXblB6l PMDxO1m8MeXeJrG0 QRfqU8RphgB3BXFfoSIn IMOiwQQAuP0jcfgaf9hh jpezGiXfPCPnFIp9PLl7 LWFsaWduOiBsZWZ0 KzF0HEY6xYMopX6pxUqf wccilT1aWbk+QmlydGgg MKY1SRu1J5TmLwo8YUVr qWtjTK6qkOZnIAis Bd8kwJcekIwmRC9dAAIp umbbs646WhHbd6imWXKu kTOuZNnkIGZ4T77gx1H3 LTRiEPUyUPZ7lKS3 cT4opCvxmkjdgMCsoTjm wsVjfFefLAonHXedJ499 YPJjfMlnQnMcIUm4F3Zv Lln8QABiaNkbHJ0z uSPwGCigMo4vpQcsjKli IA7wLISekehin641OwIh v4njPCPtaINhKQyrFVM9 L16hk0J3GIWtFALt KWQ5xAT6uX4qyOwsnfla bGVmdDsgdmVydGljYWwt FUwdZ750SOWcpRcmEeNk lVx1A8XrZwl4YDMs fMkvZV6rmOFqDQqhBh2d kWktfUxlYV3fRZCsgknc d279JiYem0wxQQKfcCJq SYxlLJB1W01tz2O6 OGVnBBCaVYN4bLN4kD7c bGlnbjogbGVmdDsgdmVy bMjdTJlyKHxjI833OVLh cDsnPlBhdGllbnQg UVikIPu0I4PbNhqjaTA+ HM10OYLaEO36bGCysHJq m9xtxPo5UuAsXPKcWGG1 nVekIYjrp2FgPVDo G88cuQSdx4O5TBHtzDky aUOdByIciFI7dC9lHQzl orvqb4hwdoosWpnbl1qm vv46nL71X01dNMyh ZHRoPSIzMCUiIHZhbGln rs9dwM1mJr9+PGNvbCB3 hSM2lB0tTOSoUeH4OZmo H730DlFknSPzYflv c5ock7uqoXf5MaW1XSOg ghIexAnyULK5x0KlZp33 E87hSZyzUVOkEPNxBTAi OGDfvBlovq1ryW3t Ii8+ZUVmkZQ0sTW0vT7r AgQfJaG7ZCnuT703VgDz pOYeUkirX45tB0RxoWF+ XDFnCvw6IDUffUjz DW9vqWPfVBvvIy6yDMT6 XdOuJfSdOJhfF7HxCNVk ystuxulmkTB1QRZiAEPx fN38Ye2gbBqpYUNi gFVHbF5zzvpgi4mkwhtv SaBqARLpDKu8TQd6WXDh uTrgCeBfXKH2WuY5HUA8 lLGszE4zlHfxhkbp dY0zR5LxXEEwiwovHu48 uD3hHpJkQwN4LSeeXcn+ CJLVTLPQRAmqD8OFUIZA UkJBTjwvdGQ+PHRk CXX4jIdqFNlwXFVeiQ9o LFPhD9q2JyHyYdO1FEqs V0EzEYHwjdehNr53pJ5f ZmDiEvI4VZphV0Pn tzY7LMKttEBtHCmgYVI8 A04xx2T2EABkGMHcHPP0 pVQ5dA6daQqenlhytTAf dDsgdmVydGljYWwt AGdiG285AJOdaFevNtTq UhXnCrO8ULo9T3SnOua3 YRDpcBmrGP2nzHQsEAat Ho7uqAuywYnwGZ7h ZLIrkcimTJMmeK0kDACo bAUlmRasKB8zBSGeypqn f053FgCvRDF7UFLdlVRz D0RawI0lUoWrVWYi FWOrB0IeiUXuWJsmH294 ZIisQkW7CSRghmJiH6Lb LCMhpNrrOvH8l0S6Ow44 NyBZZWFyczwvdGQ+ UEEyUYC9rXvfQRviRUPu yV3xNWTlD2t0WpLgOwZ9 PPnwX0PiZXBlmxlrKy56 wN4yMsKvYyT7JDik K5YeizR7GPCejDQyPKon BZN2G49ov3I6TFFrBCXb SJX7zPX0yV6liVckpalf bGVmdDsgdmVydGlj AUnxWIblR608CVVovGta Ck0QHMV1J1JqLoa0CGPc hWnkZS4xlPCkSDieFa9z cEximQawUJ3zEETw itdkQYJfnM0gUHNjoBIx oUdzHL9xZPHgfcuxx541 UtYuYZD7IUNmzZCmO9Yf aF3mCcYnSVOgOGCh D3LuwDVoJDpeJ867SQek HkU8UXHerfQwV0IqJYEn aKgdNeM6t8G6Xv9NVGF8 pqKhrjknW9Z2oPT4 aWVudDwvdGQ+RI63ma42 K4JsYtgdUhx1HIKbZZX6 uPN0cL3iGASgTIrqh2K3 jVV6A1SaakShce8h f2shKZKuUEjkL66knPFp i5G6FTYepJK2RMWdyGia HbYxzL96Hdk+PGNvbGdy f5VnTcrht6ohd1oc kGr5IpNoSYHrrvTmxTfc TES8h3ZzWu05G87nHUbt ZHRoPSIzMCUiIHZhbGln xd1viM3oXh1+PGNv dVW3nXO2mX7lPcCuZqE0 LXbnJ326CfSfzDCtLgaz j5wic0feeNf4MlWtTSKc gbKimTiuCUO0a7Au Qm15H2VxtFefb1IxGmo8 ql12wKUks5H2iFY7P0Bz PAUiyuxpyAZjtJatAX9b YQQvxjzbAJYdcX1q IKOzL9m7KuAoUyS2MPuv L9RytzV3WAJdsCQyLUKm xRIKdZ4sbqqsj4mrkvvf JwLtZLBgUMk6XLf5 VZOddNgnAkIlIGU8MmN8 PUW6cXPbtM9ywUhjxpwv lW6wImb+OPt2v1dyrNVm DC0dkET6IU12LZ42 dLEkt0Z8hJM9R1WnJQNj gbohmnjnxWZ1SMTfPWDt qG94Cx5mcVxhAp6uMKCe XSI8FLPxuLPsM5Hg kZ9bQzPiKSTvCURuK7Fo eTXmXEgpO462TClkDsI0 KSKmgyXkW4IfHNDmzTnj YuV5e9C2Jk4PEA76 FJ32BF00kIHgw4X0qXP0 S3OcYYEweaoqcxpeyBH7 CJGvVLUarF02Gx0rhXnw Aq7zLKOhCMY9RNSu hOFfP9MhlV7dQbFhLILh BPAoE0SpwZVhFVruK436 WKboEjJ4URTxssVjI1Hq ARCxvAngClW6j5P2 Gc6FTn20MT19XV48wAAa m4F9cZH6K3XcUIMykhhf ntluoPA8GJBmBWFmkW73 Ql9smEtbNz9wYTUy LMU7OAGftDXhN8OepO1j MfVuFUYzZBYmE2JwnGKf ZVwkW949HIarRmW5MYVx gdUqJ1VeXOGynIjr ZqH0m8G3Ub5IQZpumae1 B9PuVhjlwJJ+WB73RCGu BJ30dHKpfMHxg8xnjHl3 WyFsUXQoTML0eIzk PSd (more content not included)... [facility] Provider Orderson 06-22-2024 Provider Orders [id number] #1.00OTGTIFF [facility] 06-19-2024 [facility] Telephone (NRESAV) HERRERA WETZEL ([id number]) 1945 M Date Time Provider Department 06/19/24 DONALD ALBERTS During your visit today, we recorded the following information about you: Kathleen Flanagan LPN 06/19/2024 9:45 AM Signed 06/19/2024 Order sent via secured fax to [employer] at with confirmation of receipt received. Order [...] Encounter Status:Closed by KATHLEEN FLANAGAN on 06/19/24 [facility] CNOVon 06-18-2024 CNOV Office Visit (NRESAV) HERRERA WETZEL ([id number]) 1945 M Date Time Provider Department 06/18/24 9:30 AM DONALD ALBERTS NRESAV During your visit today, we recorded the following information about you: Pulse Blood pressure 93/minute 131/75 Donald Alberts, DO 06/18/2024 10:18 AM Signed [facility] - FOLLOW UP EVALUATION Nathan Bolton MD [address] [facility] [address] Dear Nathan Bolton MD: I had the [...] mg onc (more content not included)... [facility] Telephone (NRESAV) HERRERA WETZEL ([id number]) 1945 M Date Time Provider Department 06/18/24 [...] Status:Closed by KATHLEEN FLANAGAN on 06/18/24 Normal [facility] MLR HEMOGLOBIN A1Con 024 Glucose [Mass/Vol] 229 mg/dL [facility] HbA1c (Bld) [Mass fraction] 9.6 % High 4.5 - 6.2 % [facility] Comment on above: ADA RECOMMENDED LIMI T 4.0 - 6.0 ADA THERAPEUTIC TARGET < 7.0 ACTION SUGGESTED > 7.0 Interpretation and review of laboratory results Abnormal [facility] Prostate specific Ag [Mass/V ol]on 05-18-2024 PROSTATIC SPEC ANT 4.50 ng/mL High 0.00-4.00 [facility] Comment on above: Result Comment: The method used for this test is Rhona [employer] DXI chemiluminescent immunoassay. Values obtained by different assay methods cannot be used interchangeably. Performed By: #### 2 [id number] #### [facility] ([id number]) [address] [facility], [address] [place] [address] CNOVon 12-26-2023 CNOV Office Visit (NRESAV) HERRERA WETZEL ([id number]) 1945 M Date Time Provider Department 12/26/23 1:00 PM DONALD ALBERTS NRESAV During your visit today, we recorded the following information about you: Pulse Blood pressure 74/minute 109/70 Donald Alberts DO 12/26/2023 1:43 PM Signed [facility] - FOLLOW UP EVALUATION Donald Alberts [address] [facility] [address] Nathan Bolton MD [address] [facility] [address] Herrera Wetzel is a 78 year old male with a history of PD. He is seen with his . Interval History Since Last Visit: The patient is having more issues with falling. 4(four) falls. Going to PT and DtD. Better with U-STEP Walking Stabilizer Walker. Wearing-off causes lots of trouble with his walking. More festinating. More tokphexk-ox-alcw (FOG). The patient denies any recent illness [...] Adult) P (more content not included)... Normal [facility] CNOVon 06-14-2023 CNOV Office Visit (NRESFV) HERRERA WETZEL ([id number]) 1945 M Date Time Provider Department 06/14/23 3:00 PM DONALD ALBERTS NRESFV During your visit today, we recorded the following information about you: Pulse Blood pressure Weight Height 72/minute 118/61 76.1 kg 1.778 m Donald Alberts, DO 06/14/2023 3:34 PM Signed [facility] - FOLLOW UP EVALUATION Nathan Bolton MD [address] [facility] [address] Herrera Wetzel is a 77 year old male with a history of PD. He is seen with his . Interval History Since Last Visit: The patient had a swallowing test in late november 2022 - no issues other than more focus on swallowing was made to the patient. 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 1 fall in November o/w doing [...] 72 Ht (more content not included)... [facility]NRESFV[facility] HERRERA WETZEL ([id number]) 1945 M Date Time Provider Department 12/05/22 1:30 PM DONALD ALBERTS NRESFV During your visit today, we recorded the following information about you: Pulse Blood pressure Weight 61/minute 127/72 74.8 kg Donald Alberts DO 12/05/2022 2:18 PM Signed [facility] - FOLLOW UP EVALUATION Donald Alberts [address] [facility] [address] Nathan Bolton MD [address] [facility] [address] Herrera Wetzel is a 77 year old male with a history of parkinsonism. He is seen with family. Interval History Since Last Visit: He is falling. There is more orcamkuw-ei-qtfr (FOG) - this is the cause of the falls. He has fallen while he is carrying things. Multitasking is a big issue. There were two falls in the post op period following cataract surgery. FOG seems to be worse in the PM. There is drooling at night. The mucous in the back of the throat is the issue. No CHEMISTRY DEPARTMENT CHAIR for 6 years. The Sinemet is not [...] no evid (more content not included)... Normal [facility] CBC AUTO DIFFon 11-26-2022 BASO # 0.0 103/ul Normal 0.0-0.1 [facility] Comment on above: Performed By: #### C BC #### [facility] [address] [place] [address] Dr. Joaquín Rodriguez Basophils/100 WBC (Bld) 0.4 % Normal 0.2-2.0 [facility] Comment on above: Performed By: #### C BC #### [facility] [address] [place] [address] Dr. Joaquín Rodriguez EO # 0.1 103/ul Normal 0.0-0.7 [facility] Comment on above: Performed By: #### C BC #### [facility] [address] [place] [address] Dr. Joaquín Rodriguez Eosinophils/100 WBC (Bld) 2.6 % Normal 0.9-7.0 [facility] Comment on above: Performed By: #### C BC #### [facility] [address] [place] [address] Dr. Joaquín Rodriguez Erythrocyte distribution width (RBC) [Ratio] 13.2 % Normal 11.0-15.0 [facility] Comment on above: Performed By: #### C BC #### [facility] [address] [place] [address] Dr. Joaquín Rodriguez Hematocrit (Bld) [Volume fraction] 47.0 % Normal 42.0-54.0 [facility] Comment on above: Performed By: #### C BC #### [facility] [address] [place] [address] Dr. Joaquín Rodriguez Hemoglobin (Bld) [Mass/Vol] 15.9 g/dL Normal 14.0-18.0 [facility] Comment on above: Performed By: #### C BC #### [facility] [address] [place] [address] Dr. Joaquín Rodriguez IG # 0.01 10e3/ul Normal 0.00-0.03 [facility] Comment on above: Performed By: #### C BC #### [facility] [address] [place] [address] Dr. Joaquín Rodriguez IG % 0.2 % Normal 0.0-0.5 [facility] Comment on above: Performed By: #### C BC #### [facility] [address] [place] [address] Dr. Joaquín Rodriguez LYMPH # 1.5 103/ul Normal 1.2-3.8 [facility] Comment on above: Performed By: #### C BC #### [facility] [address] [place] [address] Dr. Joaquín Rodriguez Lymphocytes/100 WBC (Bld) 30.0 % Normal 20.5-60.0 [facility] Comment on above: Performed By: #### C BC #### [facility] [address] [place] [address] Dr. Joaquín Rodriguez MANUAL DIFF REQ NO Normal [facility] Comment on above: Performed By: #### C BC #### [facility] [address] [place] [address] Dr. Joaquín Rodriguez MCH (RBC) [Entitic mass] 30.8 pg Normal 25.9-34.0 [facility] Comment on above: Performed By: #### C BC #### [facility] [address] [place] [address] Dr. Joaquín Rodriguez MCHC (RBC) [Mass/Vol] 33.8 g/dL Normal 29.9-35.2 [facility] Comment on above: Performed By: #### C BC #### [facility] [address] [place] [address] Dr. Joaquín Rodriguez MCV (RBC) [Entitic vol] 90.9 fL Normal 80.0-94.0 [facility] Comment on above: Performed By: #### C BC #### [facility] [address] [place] [address] Dr. Joaquín Rodriguez MONO # 0.4 103/ul Normal 0.3-0.8 [facility] Comment on above: Performed By: #### C BC #### [facility] [address] [place] [address] Dr. Joaquín Rodriguez Monocytes/100 WBC (Bld) 7.5 % Normal 1.7-12.0 [facility] Comment on above: Performed By: #### C BC #### [facility] [address] [place] [address] Dr. Joaquín Rodriguez NEUT # 3.0 103/ul Normal 1.4-6.5 [facility] Comment on above: Performed By: #### C BC #### [facility] [address] [place] [address] Dr. Joaquín Rodriguez Neutrophils/100 WBC (Bld) 59.3 % Normal 43.0-75.0 [facility] Comment on above: Performed By: #### C BC #### [facility] [address] [place] [address] Dr. Joaquín Rodriguez Platelet mean volume (Bld) [Entitic vol] 11.2 fL Normal 9.5-13.5 [facility] Comment on above: Performed By: #### C BC #### [facility] [address] [place] [address] Dr. Joaquín Rodriguez PLT 128 103/ul Critically low 150-450 [facility] Comment on above: Performed By: #### C BC #### [facility] [address] [place] [address] Dr. Joaquín Rodriguez RBC 5.17 106/ul Normal 4.70-6.10 [facility] Comment on above: Performed By: #### C BC #### [facility] [address] [place] [address] Dr. Joaquín Rodriguez WBC 5.1 103/ul Normal 4.0-11.0 [facility] Comment on above: Performed By: #### C BC #### [facility] [address] [place] [address] Dr. Joaquín Rodriguez GLYCOHEMOGLOBIN A1Con 2022 ADA RECOMMENDATION SEE BELOW Normal [facility] Comment on above: Result Comment: ADA RECOMMENDED LIMIT 4.0 - 6.0 ADA THERAPEUTIC TARGET < 7.0 ACTION SUGGESTED > 7.0 Performed By: #### A 1C #### [facility] [address] [place] [address] Dr. Joaquín Rodriguez Glucose [Mass/Vol] 235 mg/dL Normal [facility] Comment on above: Performed By: #### A 1C #### [facility] [address] [address] [address] Joaquín Rodriguez HbA1c (Bld) [Mass fraction] 9.8 % Critically high 4.5-6.2 [facility] Comment on above: Performed By: #### A 1C #### [facility] [address] [address] [address] Joaquín Rodriguez LIPID PROFILEon 11-26-2022 CHOL-HDL RATIO NORM SEE BELOW Normal [facility] Comment on above: Result Comment: 3.3 - 4.4 LOW RISK 4.4 - 7.1 AVERAGE RISK 7.1 - 11.0 MODERATE RISK >11.0 HIGH RISK Performed By: #### L IVER, LIPID, BMP ####[facility] [address] [address]Dr. Joaquín Rodriguez Cholesterol [Mass/Vol] 145 mg/dL Normal <=200 [facility] Comment on above: Performed By: #### L IVER, LIPID, BMP ####[facility] [address] [address]DrKlaudia Rodriguez Cholesterol in HDL [Mass/Vol] 39 mg/dL Critically low 40-60 [facility] Comment on above: Performed By: #### L IVER, LIPID, BMP ####[facility] [address] [id number] Rodriguez Cholesterol in LDL [Mass/Vol] 70.8 mg/dL Normal [facility] Comment on above: Performed By: #### L IVER, LIPID, BMP ####[facility] [address] [id number] Rodriguez Cholesterol.total/Chol esterol in HDL [Mass ratio] 3.7 {ratio} Normal [facility] Comment on above: Performed By: #### L IVER, LIPID, BMP ####[facility] [address] [id number]. Joaquín Rodriguez HDL NORMAL > or = 60 mg/dl - LOW CARDIOVASCULAR RISK <40 mg/dl - HIGH CARDIOVASCULAR RISK Normal [facility] Comment on above: Performed By: #### L IVER, LIPID, BMP ####[facility] [address] [id number]. Joaquín Rodriguez LDL CALC NORMAL SEE BELOW Normal [facility] Comment on above: Result Comment: <100 mg/dl OPTIMAL 100 - 129 mg/dl NEAR OR ABOVE OPTIMAL 130 - 159 mg/dl BORDERLINE HIGH 160 - 189 mg/dl HIGH >190 mg/dl VERY HIGH Performed By: #### L IVER, LIPID, BMP ####[facility] [address] [id number]. Joaquín Rodriguez Triglyceride [Mass/Vol] 176 mg/dL Critically high <=150 [facility] Comment on above: Performed By: #### L IVTEN, LIPID, BMP ####[facility] [address] [address]Dr. Joaquín Rodriguez VLDL CALC 35.2 mg/dL Normal [facility] Comment on above: Performed By: #### L IVER, LIPID, BMP ####[facility] [address] [address]Dr. Joaquín Rodriguez LIVER PROFILEon 11-26-2022 Albumin [Mass/Vol] 3.9 g/dL Normal 3.4-5.0 [facility] Comment on above: Performed By: #### L IVER, LIPID, BMP ####[facility] [address] [address]Dr. Joaquín Rodriguez Albumin/Globulin [Mass ratio] 1.0 {ratio} Normal [facility] Comment on above: Performed By: #### L IVER, LIPID, BMP ####[facility] [address] [address]Dr. Joaquín Rodriguez ALP [Catalytic activity/Vol] 91 U/L Normal 46-116 [facility] Comment on above: Performed By: #### L IVER, LIPID, BMP ####[facility] [address] [id number]. Joaquín Rodriguez ALT [Catalytic activity/Vol] 15 U/L Critically low 16-63 [facility] Comment on above: Performed By: #### L IVER, LIPID, BMP ####[facility] [address] [address]Dr. Joaquín Rodriguez AST [Catalytic activity/Vol] 29 U/L Normal 15-37 [facility] Comment on above: Performed By: #### L IVER, LIPID, BMP ####[facility] [address] [address]Dr. Joaquín Rodriguez BILI, CONJUGATED 0.2 mg/dL Normal 0.0-0.2 [facility] Comment on above: Performed By: #### L IVTEN, LIPID, BMP ####[facility] [address] [address]Dr. Joaquín Rodriguez Bilirubin [Mass/Vol] 0.7 mg/dL Normal 0.2-1.0 [facility] Comment on above: Performed By: #### L IVER, LIPID, BMP ####[facility] [address] [address]Dr. Joaquín Rodriguez Globulin (S) [Mass/Vol] 3.8 g/dL Normal [facility] Comment on above: Performed By: #### L IVER, LIPID, BMP ####[facility] [address] [place] [address] [address]Dr. Joaquín Rodriguez Protein [Mass/Vol] 7.7 g/dL Normal 6.4-8.2 [facility] Comment on above: Performed By: #### L IVER, LIPID, BMP ####[facility] [address] [address]Dr. Joaquín Rodriguez MICROALBUMIN, RAND URon 05-0 mALB 3.5 mg/L Normal <=30.0 [facility] Comment on above: Performed By: #### M ALBR #### [facility] [address] [address] [address] Joaquín Rodriguez PROF CHEM 8 (BAS METB)on Anion gap [Moles/Vol] 10.8 mmol/L Normal [facility] Comment on above: Performed By: #### L IVER, LIPID, BMP ####[facility] [address] [address]Dr. Joaquín Rodriguez Calcium [Mass/Vol] 9.1 mg/dL Normal 8.5-10.1 [facility] Comment on above: Performed By: #### L IVER, LIPID, BMP ####[facility] [address] [address]Dr. Joaquín Rodriguez Chloride [Moles/Vol] 103 mmol/L Normal 98-107 [facility] Comment on above: Performed By: #### L IVER, LIPID, BMP ####[facility] [address] [address]Dr. Joaquín Rodriguez CO2 [Moles/Vol] 29.7 mmol/L Normal 21.0-32.0 [facility] Comment on above: Performed By: #### L IVER, LIPID, BMP ####[facility] [address] [place], [place] [address]Dr. Joaquín Rodriguez Creatinine [Mass/Vol] 0.97 mg/dL Normal 0.70-1.30 [facility] Comment on above: Performed By: #### L IVER, LIPID, BMP ####[facility] [address] [place], [place] [address]Dr. Joaquín Rodriguez EGFR-AF TURKS AND CAICOS ISLANDER >60 Normal >=60 [facility] Comment on above: Performed By: #### L IVER, LIPID, BMP ####[facility] [address] [place], [place] [address]Dr. Joaquín Rodriguez EGFR-NON AF TURKS AND CAICOS ISLANDER >60 Normal >=60 [facility] Comment on above: Performed By: #### L IVER, LIPID, BMP ####[facility] [address] [place], [place] [address]Dr. Joaquín Rodriguez Glucose [Mass/Vol] 261 mg/dL Critically high 74-106 [facility] Comment on above: Performed By: #### L IVER, LIPID, BMP ####[facility] [address] [place], [place] [address]Dr. Yilan Rodriguez Potassium [Moles/Vol] 4.5 mmol/L Normal 3.5-5.1 [facility] Comment on above: Performed By: #### L IVTEN LIPID, BMP ####[facility] [address] [place], [place] [address]Ed. Joaquín Rodriguez Sodium [Moles/Vol] 139 mmol/L Normal 136-145 [facility] Comment on above: Performed By: #### L IVTEN LIPID, BMP ####[facility] [address] [place], [place] [address]Yc. Joaquín Rodriguez Urea nitrogen [Mass/Vol] 16.0 mg/dL Normal 7.0-18.0 [facility] Comment on above: Performed By: #### L ZENY LIPID, BMP ####[facility] [address] [place], [place] [address]Tn. Joaquín Rodriguez Urea nitrogen/Creatinine [Mass ratio] 16.5 mg/mg Normal [facility] Comment on above: Performed By: #### L ZENY LIPID, BMP ####[facility] [address] [place], [place] [address]Sz. Joaquín Rodriguez MR Brain WO contraston 06-20 IMPRESSION: No acute findings. No evidence of acute infarction, intracranial hemorrhage or intracranial mass lesion. Command Post Superintendent: BIRGIT Transcribe Date/Time: Jun 20 2022 1:55P Dictated by : ANTHONY JONES MD This examination was interpreted and the report reviewed and electronically signed by: ANTHONY JONES MD on Jun 20 2022 2:02PM [facility] DIVISION OF RADIOLOGY * * *Final Report* * * DATE OF EXAM: Jun 20 2022 1:26PM [facility] 0294 - MRI BRAIN WO IVCON / [...] tissues are unremarkable. DIVISION OF RADIOLOGY Provider, [facility] - 06/20/2022 * * *Final Report* * [...] infarction, intracranial hemorrhage or intracranial mass lesion. Command Post Superintendent: PSCGloria Transcribe Date/Time: Jun 20 2022 1:55P Dictated by : ANTHONY JONES MD This examination was interpreted and the report reviewed and electronically signed by: ANTHONY JONES MD on Jun 20 2022 2:02PM EST [facility] Radiology Study observation (narrative) [facility] MR Brain WO contrastOrdered By: Ccf Provider on 06-20-2022 [facility] POINT OF CARE GLUCOSEon 04-29 Glucose [Mass/Vol] 180 mg/dL Critically high 74-106 [facility] Comment on above: Performed By: #### P OCGLUC ####[facility] [address] [place], [place] [address]Iq. Joaquín Rodriguez Covid-19 PCR (CVDTBH)on 04-29 SARS-CoV-2 (COVID-19) RNA JAS+probe Ql (Unsp spec) Not detected Normal NOT DETECTED [facility] Comment on above: Result Comment: This test is not yet approved or cleared by the [place] FDA. When there are no FDA-approved or cleared tests available, and other criteria are met, FDA can make tests available under an emergency access mechanism called an Emergency Use Authorization (EUA). The EUA for this test is supported by the [place] of Health and Human Service's (HHS's) declaration [...] consistent with SARS-CoV-2. Performed By: #### [facility] #### [facility] [address] [address] [address] Joaquín Rodriguez GLYCOHEMOGLOBIN A1Con 2021 ADA RECOMMENDATION SEE BELOW Normal [facility] Comment on above: Result Comment: ADA RECOMMENDED LIMIT 4.0 - 6.0 ADA THERAPEUTIC TARGET < 7.0 ACTION SUGGESTED > 7.0 Performed By: #### A 1C #### [facility] [address] [address] [address] Joaquín Rodrigeuz Glucose [Mass/Vol] 212 mg/dL Normal [facility] Comment on above: Performed By: #### A 1C #### [facility] [address] [place] [address] Dr. Joaquín Rodriguez HbA1c (Bld) [Mass fraction] 9.0 % Critically high 4.5-6.2 [facility] Comment on above: Performed By: #### A 1C #### [facility] [address] [address] [address] Joaquín Rodriguez Auth for Release of Medical Recordson 11-21-2020 Auth for Release of Medical Records [id number] #1.00CD:127 Normal [facility] Dermatopathologyon 0 Dermatopathology [facility] Dermatopathology Laboratory [address] [place] [id number] DERMATOPATHOLOGY REPORT Name:HERRERA WETZEL [facility] Rec #. [id number] Location: [facility] Date of Procedure: 03/22/2020 Race: Date Received: [...] None Electronically Signed Out By NADER GALO MD/[facility] By the signature on this report, the individual or group listed as making the Final Interpretation/Diagn osis certifies that they have reviewed this case. Clinical History: Malignant melanoma. Excision. ([facility]) Specimens Submitted As: A: SKIN, RIGHT SUPERIOR LATERAL UPPER BACK Gross Description: Received in formalin is one lozano-brown piece of skin measuring 56 x 21 x 6 mm. The specimen is inked and embedded in toto in four blocks. The tips are in Block 1. mlz/03/23/2020 Normal [facility] Comment on above: Performed By: #### D #### Dermatopathology Dermatopathologyon 0 Dermatopathology Pathologist: NADER GALO MD Date of Procedure: 02/10/2020 Date Received: 02/10/2020 Submitting Physician: SAÚL JHAVERI MD Location: [facility] Copy To/Referring/Attendi ng: HENRIK WHALEN DO FINAL DIAGNOSIS 4 SLIDES, [facility], #[id number] (BX: 01/06/2020) SKIN, RIGHT SUPERIOR LATERAL UPPER [...] melanocytes. The melanocytes stain with antibodies against [place]-1 and SOX-10. The deep margin focally transects the atypical melanocytes. Electronically Signed Out by NADER GALO M.D. CANCER SUMMARY REPORT A. 4 SLIDES, [facility], #[id number] (BX: 01/06/2020): Procedure: Biopsy, shave Specimen Laterality: [...] As: A: 4 SLIDES, [facility], #[id number] (BX: 01/06/2020) Gross Description: Received for consultation from [facility]at[facility] are four slides labeled [id number] (BX: 01/06/2020) along with the corresponding pathology report. Slide/Block Description 4 SLIDES, [id number]. Keep Slides: N Slides Returned: N Personal Consult: N Normal [facility] Comment on above: Performed By: #### D #### Dermatopathology Vital Signs Date Time Vital Sign Value Performing Clinician Facility 03-03-2025 10:30-0400 Body height 180.3 cm Nathan Bolton MD Work Phone: [facility] 03-03-2025 10:30-0400 Body mass index (BMI) [Ratio] 21.9 kg/m2 Nathan Bolton MD Work Phone: [facility] 03-03-2025 10:30-0400 Body temperature 97.3 [degF] Nathan Bolton MD Work Phone: [facility] 03-03-2025 10:30-0400 Body weight 71.22 kg Nathan Bolton MD Work Phone: [facility] 03-03-2025 10:30-0400 Diastolic blood pressure 86 mm[Hg] Nathan Bolton MD Work Phone: [facility] 03-03-2025 10:30-0400 Heart rate 93 /min Nathan Bolton MD Work Phone: [facility] 03-03-2025 10:30-0400 Respiratory rate 18 /min Nathan Bolton MD Work Phone: [facility] 03-03-2025 10:30-0400 SaO2% (BldA) [Mass fraction] 98 % Nathan Bolton MD Work Phone: [facility] 03-03-2025 10:30-0400 Systolic blood pressure 142 mm[Hg] Nathan Bolton MD Work Phone: [facility] 01-27-2025 13:07-0400 Body height 180.3 cm Ayaz Santo DPM Work Phone: [facility] 01-27-2025 13:07-0400 Body mass index (BMI) [Ratio] 21.9 kg/m2 Ayaz Santo DPM Work Phone: [facility] 01-27-2025 13:07-0400 Body weight 71.22 kg Ayaz Santo DPM Work Phone: [facility] 11-30-2024 10:18-0400 Body height 180.3 cm Nathan Bolton MD Work Phone: [facility] 11-30-2024 10:18-0400 Body mass index (BMI) [Ratio] 21.9 kg/m2 Nathan Bolton MD Work Phone: [facility] 11-30-2024 10:18-0400 Body temperature 97.3 [degF] Nathan Bolton MD Work Phone: [facility] 11-30-2024 10:18-0400 Body weight 71.22 kg Nathan Bolton MD Work Phone: [facility] 11-30-2024 10:18-0400 Diastolic blood pressure 58 mm[Hg] Nathan Bolton MD Work Phone: [facility] 11-30-2024 10:18-0400 Heart rate 90 /min Nathan Bolton MD Work Phone: [facility] 11-30-2024 10:18-0400 Respiratory rate 20 /min Nathan Bolton MD Work Phone: [facility] 11-30-2024 10:18-0400 SaO2% (BldA) [Mass fraction] 99 % Nathan Bolton MD Work Phone: [facility] 11-30-2024 10:18-0400 Systolic blood pressure 120 mm[Hg] Nathan Bolton MD Work Phone: [facility] 10-21-2024 10:39-0400 Body height 180.3 cm Ayaz Santo DPM Work Phone: [facility] 10-21-2024 10:39-0400 Body mass index (BMI) [Ratio] 20.75 kg/m2 Ayaz Santo DPM Work Phone: [facility] 10-21-2024 10:39-0400 Body weight 67.5 kg Ayaz Santo DPM Work Phone: [facility] 09-07-2024 11:24-0500 Body mass index (BMI) [Ratio] 21.31 kg/m2 Nathan Bolton MD Work Phone: [facility] 09-07-2024 11:24-0500 Body temperature 97 [degF] Nathan Bolton MD Work Phone: [facility] 09-07-2024 11:24-0500 Body weight 69.31 kg Nathan Bolton MD Work Phone: [facility] 09-07-2024 11:24-0500 Diastolic blood pressure 88 mm[Hg] Nathan Bolton MD Work Phone: [facility] 09-07-2024 11:24-0500 Heart rate 94 /min Nathan Bolton MD Work Phone: [facility] 09-07-2024 11:24-0500 SaO2% (BldA) [Mass fraction] 98 % Nathan Bolton MD Work Phone: [facility] 09-07-2024 11:24-0500 Systolic blood pressure 130 mm[Hg] Nathan Bloton MD Work Phone: [facility] 07-07-2024 09:36-0500 Body height 180.3 cm Ayaz Santo DPM Work Phone: [facility] 07-07-2024 09:36-0500 Body mass index (BMI) [Ratio] 22.04 kg/m2 Ayaz Santo DPM Work Phone: [facility] 07-07-2024 09:36-0500 Body weight 71.67 kg Ayaz Santo DPM Work Phone: [facility] 06-18-2024 09:44-0500 Diastolic blood pressure 75 mm[Hg] Donald Danicatkolexiki DO Work Phone: [facility] 06-18-2024 09:44-0500 Heart rate 93 /min Donald Danicatkolexiki DO Work Phone: [facility] 06-18-2024 09:44-0500 Systolic blood pressure 131 mm[Hg] Donald Danicatkolexiki DO Work Phone: [facility] 06-01-2024 10:20-0500 Body height 180.3 cm Nathan Bolton MD Work Phone: [facility] 06-01-2024 10:20-0500 Body mass index (BMI) [Ratio] 22.04 kg/m2 Nathan Bolton MD Work Phone: [facility] 06-01-2024 10:20-0500 Body temperature 97.11 [degF] Nathan Bolton MD Work Phone: [facility] 06-01-2024 10:20-0500 Body weight 71.67 kg Nathan Bolton MD Work Phone: [facility] 06-01-2024 10:20-0500 Diastolic blood pressure 64 mm[Hg] Nathan Bolton MD Work Phone: [facility] 06-01-2024 10:20-0500 Heart rate 94 /min Nathan Bolton MD Work Phone: [facility] 06-01-2024 10:20-0500 Respiratory rate 18 /min Nathan Bolton MD Work Phone: [facility] 06-01-2024 10:20-0500 SaO2% (BldA) [Mass fraction] 97 % Nathan Bolton MD Work Phone: [facility] 06-01-2024 10:20-0500 Systolic blood pressure 128 mm[Hg] Nathan Bolton MD Work Phone: [facility] 05-25-2024 14:06-0400 Body height 180.3 cm Yobany Gonzales MD Work Phone: [facility] 05-25-2024 14:06-0400 Body mass index (BMI) [Ratio] 22.32 kg/m2 Yobany Gonzales MD Work Phone: [facility] 05-25-2024 14:06-0400 Body weight 72.58 kg Yobany Gonzales MD Work Phone: [facility] 05-25-2024 14:06-0400 Diastolic blood pressure 73 mm[Hg] Yobany Gonzales MD Work Phone: [facility] 05-25-2024 14:06-0400 Systolic blood pressure 128 mm[Hg] Yobany Gonzales MD Work Phone: [facility] 03-23-2024 10:07-0400 Body height 180.3 cm Ayaz Santo DPM Work Phone: [facility] 03-23-2024 10:07-0400 Body mass index (BMI) [Ratio] 22.32 kg/m2 Ayaz Santo DPM Work Phone: [facility] 03-23-2024 10:07-0400 Body weight 72.58 kg Ayaz Santo DPM Work Phone: [facility] 12-26-2023 13:04-0400 Diastolic blood pressure 70 mm[Hg] Donald Alberts DO Work Phone: [facility] 12-26-2023 13:04-0400 Heart rate 74 /min Donald Alberts DO Work Phone: [facility] 12-26-2023 13:04-0400 Systolic blood pressure 109 mm[Hg] Donald Alberts DO Work Phone: [facility] 09-10-2023 11:47-0500 Body height 180.3 cm Nathan Bolton MD Work Phone: [facility] 09-10-2023 11:47-0500 Body mass index (BMI) [Ratio] 23.01 kg/m2 Nathan Bolton MD Work Phone: [facility] 09-10-2023 11:47-0500 Body temperature 97.5 [degF] Nathan Bolton MD Work Phone: [facility] 09-10-2023 11:47-0500 Body weight 74.84 kg Nathan Bolton MD Work Phone: [facility] 09-10-2023 11:47-0500 Diastolic blood pressure 70 mm[Hg] Nathan Bolton MD Work Phone: [facility] 09-10-2023 11:47-0500 Heart rate 89 /min Nathan Bolton MD Work Phone: [facility] 09-10-2023 11:47-0500 SaO2% (BldA) [Mass fraction] 99 % Nathan Bolton MD Work Phone: [facility] 09-10-2023 11:47-0500 Systolic blood pressure 130 mm[Hg] Nathan Bolton MD Work Phone: [facility] 12-05-2022 13:27-0400 Body weight 74.84 kg Donald Alberts DO Work Phone: [facility] 12-05-2022 13:27-0400 Diastolic blood pressure 72 mm[Hg] Donald Alberts DO Work Phone: [facility] 12-05-2022 13:27-0400 Heart rate 61 /min Donald Alberts DO Work Phone: [facility] 12-05-2022 13:27-0400 SaO2% (BldA) [Mass fraction] 99 % Donald Alberts DO Work Phone: [facility] 12-05-2022 13:27-0400 Systolic blood pressure 127 mm[Hg] Donald Alberts DO Work Phone: [facility] 06-06-2022 16:21-0500 Body height 180.3 cm Donald Alberts DO Work Phone: [facility] 06-06-2022 16:21-0500 Body weight 74.39 kg Donald Alberts DO Work Phone: [facility] 06-06-2022 16:21-0500 Diastolic blood pressure 75 mm[Hg] Donald Alberts DO Work Phone: [facility] 06-06-2022 16:21-0500 Heart rate 69 /min Donald Alberts DO Work Phone: [facility] 06-06-2022 16:21-0500 SaO2% (BldA) [Mass fraction] 100 % Donald Alberts DO Work Phone: [facility] 06-06-2022 16:21-0500 Systolic blood pressure 135 mm[Hg] Donald Alberts DO Work Phone: [facility] Encounters Encounter Date Encounter Type Care Provider Facility Start: 03-25-2025 End: 03-25-2025 Refill Nathan Bolton MD Work Phone: [facility] Comment on above: Type 2 diabetes elena itus with hyperglycemia, without long-term current use of insulin ([facility]) Start: 03-15-2025 End: 03-15-2025 ambulatory Elan Jenkins MD Facility: [facility] Start: 03-03-2025 End: 03-03-2025 Bamboo flowsheet Nathan Bolton MD Work Phone: [facility] Start: 03-03-2025 End: 03-03-2025 Husam flowsheet Nathan Bolton MD Work Phone: [facility] Start: 03-03-2025 End: 03-03-2025 Office outpatient visit 25 minutes Nathan Bolton MD Work Phone: [facility] Comment on above: Type 2 diabetes elena itus with hyperglycemia, without long-term current use of insulin (HCC) (Primary Dx); Essential hypertension, benign ; Parkinson disease, symptomatic (HCC); Degeneration of intervertebral disc of lumbar region with discogenic back pain; Dysphagia, unspecified type Start: 03-03-2025 End: 03-03-2025 ambulatory NATHAN BOLTON Not Available Start: 01-27-2025 End: 01-27-2025 Bamboo flowsheet Ayaz Santo DPM Work Phone: [facility] Start: 01-27-2025 End: 01-27-2025 Bamboo flowsheet Ayaz Santo DPM Work Phone: [facility] Start: 01-27-2025 End: 01-27-2025 Patient encounter procedure Ayaz Santo DPM Work Phone: [facility] Comment on above: Dermatophytosis of n ail (Primary Dx); Dystrophic nail; Pain around toenail, right foot; Pain around toenail, left foot Start: 01-27-2025 End: 01-27-2025 ambulatory AYAZ SANTO Not Available Start: 12-17-2024 End: 12-17-2024 ambulatory NATHAN BOLTON Facility:[facility] Start: 11-30-2024 End: 11-30-2024 Bamboo flowsheet Nathan Bolton MD Work Phone: [facility] Start: 11-30-2024 End: 11-30-2024 Bamboo flowsheet Nathan Bolton MD Work Phone: [facility] Start: 11-30-2024 End: 11-30-2024 Office outpatient visit 25 minutes Nathan Bolton MD Work Phone: [facility] Comment on above: Type 2 diabetes [...] Result Encounter Nathan Bolton MD Work Phone: [facility] External Department Unsolicited Start: 11-06-2024 End: 11-06-2024 Clinisync Result Encounter Nathan Bolton MD Work Phone: [facility] External Department Unsolicited Start: 10-21-2024 End: 10-21-2024 Bamboo flowsheet Ayaz Santo DPM Work Phone: [facility] Start: 10-21-2024 End: 10-21-2024 Bamboo flowsheet Ayaz Santo DPM Work Phone: [facility] Start: 10-21-2024 End: 10-21-2024 Patient encounter procedure Ayaz Santo DPM Work Phone: [facility] Comment on above: Dermatophytosis of [...] Bamboo flowsheet Nathan Bolton MD Work Phone: [facility] Start: 09-07-2024 End: 09-07-2024 Bamboo flowsheet Nathan Bolton MD Work Phone: [facility] Start: 09-07-2024 End: 09-07-2024 Office outpatient visit 15 minutes Nathan Bolton MD Work Phone: [facility] Comment on above: Strain of calf muscl e, subsequent encounter (Primary Dx) Start: 09-07-2024 End: 09-07-2024 ambulatory NATHAN BOLTON Not Available Start: 07-14-2024 End: 07-14-2024 Telephone encounter Donald Alberts DO Work Phone: Neurology Start: 07-07-2024 End: 07-07-2024 Bamboo flowsheet Ayaz Santo DPM Work Phone: [facility] Start: 07-07-2024 End: 07-07-2024 Bamboo flowsheet Ayaz Santo DPM Work Phone: [facility] Start: 07-07-2024 End: 07-07-2024 Patient encounter procedure Ayaz Santo DPM Work Phone: [facility] Comment on above: Dermatophytosis of n ail (Primary Dx); Dystrophic nail; Pain around toenail, right foot; Pain around toenail, left foot Start: 07-07-2024 End: 07-07-2024 ambulatory AYAZ SANTO Not Available Start: 06-29-2024 ambulatory NATHAN BOLTON Facility :[facility] Start: 06-19-2024 End: 06-19-2024 Telephone encounter Donald Alberts DO Work Phone: Neurology Start: 06-18-2024 End: 06-18-2024 Telephone encounter Donald Alberts DO Work Phone: Neurology Start: 06-18-2024 End: 06-18-2024 ambulatory NATHAN BOLTON Facility:[facility] Start: 06-18-2024 End: 06-18-2024 Office outpatient visit 15 minutes Donald Alberts DO Work Phone: Neurology Comment on above: Parkinson's disease without dyskinesia or fluctuating manifestations (HCC) (Primary Dx); Hypokinetic Parkinsonian dysphonia (HCC) Start: 06-08-2024 End: 06-08-2024 Clinisync Result Encounter Nathan Bolton MD Work Phone: [facility] External Department Unsolicited Start: 06-08-2024 End: 06-08-2024 Clinisync Result Encounter Nathan Bolton MD Work Phone: [facility] [facility] External Department Unsolicited Start: 06-08-2024 End: 06-08-2024 Orders Only Nathan Bolton MD Work Phone: [facility] Comment on above: Type 2 diabetes elena itus with hyperglycemia, without long-term current use of insulin (CMS/HCC) (Primary Dx) Start: 06-01-2024 End: 06-01-2024 Bamboo flowsheet Nathan Bolton MD Work Phone: [facility] Start: 06-01-2024 End: 06-01-2024 Bamboo flowsheet Nathan Bolton MD Work Phone: [facility] Start: 06-01-2024 End: 06-01-2024 Office [...] (CMS/HCC) Start: 06-01-2024 End: 06-01-2024 ambulatory NATHAN BOLTNO Not Available Start: 05-25-2024 End: 05-25-2024 Office outpatient visit 15 minutes Yobany Gonzales MD [facility] Comment on above: Elevated PSA (Primar y Dx); Hematuria, gross Start: 05-25-2024 End: 05-25-2024 ambulatory YOBANY GONZALES [facility] Start: 05-18-2024 End: 05-18-[address] [facility] Start: 03-23-2024 End: 03-23-2024 Patient encounter procedure Ayaz Santo DPM Work Phone: [facility] Comment on above: Dermatophytosis of n ail (Primary Dx); Dystrophic nail; Pain around toenail, right foot; Pain around toenail, left foot Start: 03-23-2024 End: 03-23-2024 ambulatory AYAZ SANTO Not Available Start: 12-26-2023 End: 12-26-2023 ambulatory NATHAN BOLTON Facility:[facility] Start: 12-26-2023 End: 12-26-2023 Office outpatient [...] 15 minutes Nathan Bolton MD Work Phone: [facility] FM Comment on above: Epigastric abdominal pain (Primary Dx) Start: 06-14-2023 End: 06-14-2023 ambulatory DONALD ALBERTS Facility:[facility] Start: 03-16-2023 ambulatory Donald xavier DO Work Phone: Neurology Comment on above: Botox for excessive saliva for Herrera Sneedt Start: 02-19-2023 Refill Donald xavier DO Work Phone: Neurology Comment on above: Refill Request Start: 12-26-2022 End: 12-26-[address] DOCTOR INCOLE Facility:[facility] Start: 12-13-2022 End: 12-13-2022 ambulatory JOANNE TALAVERA . Facility:[facility] Start: 12-05-2022 End: 12-05-2022 ambulatory DONALD ALBERTS Facility:[facility] Start: 12-05-2022 End: 12-05-2022 Patient encounter procedure Donald Alberts DO Work Phone: Neurology Comment on above: PD (Parkinson's dise ase) ([facility]) (Primary Dx); Sialorrhea; Hypophonia Start: 11-26-2022 End: 11-27-[address] NATHAN BOLTON Facility:[facility] Start: 10-21-2022 ambulatory Donald xavier DO Work Phone: Neurology Comment on above: Herrera Ponce ons patient contraindicated medicines Start: 09-27-2022 End: 09-27-2022 ambulatory SANIYA GARZON Facility:[facility] Start: 09-10-2022 Refill Donald xavier DO Work Phone: [facility] Comment on above: Refill Request Start: 08-30-2022 End: 08-30-2022 ambulatory SANIYA GARZON Facility:[facility] Start: 06-27-2022 End: 06-28-[address] NIKHIL GUAJARDO . Facility:[facility] Start: 06-22-2022 Telephone encounter Donald gomez DO Work Phone: [facility] Comment on above: Results (MRI NL) Start: 06-20-2022 End: 06-20-2022 Subsequent hospital visit by physician [facility] Amanda (1.5t) Work Phone: Radiology Comment on above: PD (Parkinson's dise ase) ([facility]) [G20] Start: 06-06-2022 End: 06-06-2022 Patient encounter procedure Donald lAberts DO Work Phone: Neurology Comment on above: PD (Parkinson's dise ase) ([facility]) (Primary Dx); Dysarthria Start: 05-23-2022 Encounter for preprocedural laboratory examination DR NIKHIL GUAJARDO . [facility] Start: 05-22-2022 End: 05-22-[address] [...] Td Vaccines (2 - Td or Tdap) [facility] Start: 11-04-2026 Glaucoma screening Diabetes: R etinopathy Screening [facility] Start: 06-24-2026 [facility] Start: 09-30-2025 Glaucoma screening Diabetes: R etinopathy Screening [facility] Healthcare Start: 06-02-2025 End: 06-02-2025 Patient encounter procedure 06/02/2025 1:15 PM EST Office Visit [facility] [address] [place] [address] [place] [address] Yobany Gonzales MD [facility] [place] [address] [facility] Start: 06-02-2025 End: 06-02-2025 Patient encounter procedure 06/02/2025 9:45 AM EST Office Visit [facility] [address] [place] [address] Nathan Bolton MD [address] [place] [address] [facility] Start: 05-25-2025 End: 04-25-2026 Prostatic specific antigen, diagnostic Prostatic specific antigen, diagnostic Lab Routine Elevated PSA Expected: 05/25/2025 (Approximate), Expires: 04/25/2026 [facility] Work Phone: Comment on above: Expected: 05/25/2025 (Approximate), Expires: 04/25/2026 Start: 05-12-2025 End: 05-12-2025 Patient encounter procedure [facility] Start: 03-29-2025 Influenza vaccination Influenza Vacc ine (#1) [facility] Start: 03-03-2025 End: 03-03-2025 Patient encounter procedure [facility] Comment on above: Arrived Start: 01-27-2025 End: 01-27-2025 Patient encounter procedure [facility] Comment on above: Arrived Start: 12-17-2024 End: 12-17-2024 Patient encounter procedure 12/17/2024 1:30 PM EDT Office Visit Neurology [address] [place] [address] Donald Alberts, DO [address] [place] [address] Parkinson's disease without dyskinesia or fluctuating manifestations (HCC) [G20.A1] Neurology Comment on above: Parkinson's disease without dyskinesia or fluctuating manifestations (HCC) [G20.A1] Start: 12-03-2024 Urine screening for protein Diabetes: Urine Protein Screening [facility] Start: 11-30-2024 End: 11-30-2024 Patient encounter procedure [facility] Comment on above: Arrived Start: 10-21-2024 End: 10-21-2024 Patient encounter procedure [facility] Comment on above: Arrived Start: 09-07-2024 End: 09-07-2024 Patient encounter procedure 09/07/2024 11:00 AM EST Office Visit [facility] [address] [place] [address] Nathan Bolton MD [address] [place] [address] Arrived [facility] Comment on above: Arrived Start: 07-29-2024 Advance Directive Discussion Advance Directive Discussion [facility] Start: 07-07-2024 End: 07-07-2024 Patient encounter procedure [facility] Comment on above: Arrived Start: 06-20-2024 DIABETES SCREEN DIABETES SCREEN [facility] Start: 06-20-2024 Diabetes Screening Diabetes Screenin g [facility] Start: 06-18-2024 End: 06-18-2024 Patient encounter procedure 06/18/2024 9:30 AM EST Office Visit Neurology [address] [place] [address] Donald Alberts, DO [address] [place] [address] Return in about 6 months (around 06/27/2024). Neurology Comment on above: Return in about 6 mo nths (around 06/27/2024). Start: 06-05-2024 Hemoglobin A1c measurement Maritza betes: Hemoglobin A1C [facility] Start: 06-01-2024 End: 06-01-2025 Hemoglobin A1c/Hemoglobin.total in Blood Hemoglobin A1c Lab Routine Type 2 diabetes mellitus with hyperglycemia, without long-term current use of insulin ([facility]) Expected: 06/01/2024 (Approximate), Expires: 06/01/2025 [facility] Work Phone: Comment on above: Expected: 06/01/2024 (Approximate), Expires: 06/01/2025 Start: 06-01-2024 End: 06-01-2024 Patient encounter procedure [facility] Comment on above: Arrived Start: 05-20-2024 Adult BMI Screening Adult BMI Screen ing [facility] Start: 05-20-2024 Tobacco Screening Tobacco Screening [facility] Start: 03-29-2024 Covid-19 Vaccine ( season) Covid-19 Vaccine () [facility] Start: 03-29-2024 Influenza vaccination Influenza Vacc ine (#1) [facility] Start: 12-05-2023 End: 12-05-2023 Patient encounter procedure 12/05/2023 2:45 PM EDT Procedure Visit [facility] [address] [place] [id number] Ayaz Santo, [facility] [address] [place], [place] [id number] [facility] Start: 12-02-2023 End: 12-02-2023 Patient encounter procedure 12/02/2023 10:45 AM EDT Office Visit [facility] [address] [place] [address] Nathan Bolton MD [address] [place] [address] [facility] Start: 09-24-2023 Hemoglobin A1c measurement Maritza betes: Hemoglobin A1C [facility] Start: 09-10-2023 End: 09-10-2024 RF Upper gastrointestinal tract and Small bowel Single view W contrast PO FL upper GI double contrast w KUB Imaging Routine Epigastric abdominal pain Expected: 09/10/2023, Expires: 09/10/2024 [facility] Comment on above: Expected: 09/10/2023 , Expires: 09/10/2024 Start: 09-10-2023 End: 09-10-2024 US Gallbladder US gallbladder Imaging Routine Epigastric abdominal pain Expected: 09/10/2023, Expires: 09/10/2024 [facility] Work Phone: Comment on above: Expected: 09/10/2023 , Expires: 09/10/2024 Start: 09-10-2023 End: 09-10-2023 Patient encounter procedure 09/10/2023 11:45 AM EST Office Visit [facility] [address] [place] [address] Nathan Bolton MD [address] [place] [address] Arrived [facility] Comment on above: Arrived Start: 07-29-2023 Advance Directive Discussion Advance Directive Discussion [facility] Start: 07-29-2023 Behavioral Health Screening Behavioral Health Screening [facility] Start: 03-29-2023 Covid-19 Vaccine ( season) Covid-19 Vaccine ( season) [facility] Start: 03-29-2023 Influenza vaccination INFLUENZA (#1) [facility] Start: 08-26-2022 COVID-19 VACCINE (6 - Pfizer series) COVID-19 VACCINE (6 - Pfizer series) [facility] Start: 07-29-2022 ADVANCE DIRECTIVE DISCUSSION ADVANCE DIRECTIVE DISCUSSION [facility] Start: 07-29-2022 DEPRESSION ASSESSMENT DEPRESSION ASS ESSMENT [facility] Start: 07-29-2021 ADVANCE DIRECTIVE DISCUSSION ADVANCE DIRECTIVE DISCUSSION [facility] Start: 07-29-2021 DEPRESS[address] [facility]ION [facility] Start: 05-28-2017 Urine microalbumin profile DTa P,Tdap,Td Vaccine (1 - Tdap) [facility] Start: 2011 Fall Risk Screening Fall Risk Screen [facility] Start: 2011 PNEUMOCOCCAL: 65+ (1 - PCV) PNEUMOCOCCAL: 65+ (1 - PCV) [facility] Start: 2006 RSV Vaccine (1 - 1-d ose 60+ series) RSV Vaccine (1 - 1-dose 60+ series) [facility] Start: 1996 SHINGRIX VACCINE (1 of 2) FRIAS GRIX VACCINE (1 of 2) [facility] Start: 1991 COLOGUARD (FIT-DNA) COLOGUARD (FIT-D NA) [facility] Start: 1991 Colonoscopy COLONOSCOPY [facility] Start: 1991 COLORECTAL CANCER SCREENING COLORECTAL CANCER SCREENING [facility] Start: [address] [facility]: 1991 FECAL OCCULT BLOOD FECAL OCCULT BLOO D [facility] Start: 1991 SIGMOIDOSCOPY SIGMOIDOSCOPY Radha escoto [facility] Start: 1981 LIPID SCREEN LIPID SCREEN [facility] Start: 1965 Urine microalbumin profile DTAP,TDAP ,TD (1 - Tdap) [facility] Start: 1965 Urine screening for protein Diabetes: Urine Protein Screening [facility] Start: 1964 Anxiety Screening Anxiety Screening [facility] Start: 1964 Depression Screening Depression Scre ening [facility] Start: 1964 HEPATITIS C SCREEN[facility] Start: 1964 Hepatitis C screening Hepatitis C [facility] Start: 1958 Depression Screening Depression Scre ening [facility] Start: 1956 Glaucoma screening Diabetes: R etinopathy Screening [facility] Start: 1946 Medicare Annual Well ness (AWV) Medicare Annual Wellness (AWV) [facility] Start: 1946 Medicare Annual Well ness Visit Medicare Annual Wellness Visit [facility] End: 07-06-2023 Mri brain brain stem w/o contrast material MRI BRAIN WO IVCON Radiology Routine PD (Parkinson's disease) (HCC) Dysarthria 1 Occurrences starting 06/06/2022 until 07/06/2023 [facility] Work Phone: Comment on above: 1 Occurrences starti ng 06/06/2022 until 07/06/2023 [facility] Immunizations Immunization Date Immunization Notes Care Provider Renetta durand 05-20-2024 influenza, high dose seasonal, preservative-free Ayaz Santo DPM Work Phone: [facility] 05-20-2024 influenza virus vacc ine, unspecified formulation Ayaz Santo DPM Work Phone: [facility] 05-13-2023 RSV, recombinant, pr otein subunit RSVpreF, adjuvant reconstitu, 120mcg/0.5mL, PF (Arexvy) Ayaz Santo DPM Work Phone: [facility] 04-22-2023 Influenza, Seasonal, Quadrivalent, Adjuvanted Nathan Bolton MD Work Phone: [facility] 04-22-2023 influenza virus vacc ine, unspecified formulation Ayaz Santo DPM Work Phone: [facility] 04-23-2022 Influenza, High-dose Seasonal, Quadrivalent, Preservative Free Nathan Bolton MD Work Phone: [facility] 04-27-2021 Influenza, Seasonal, Quadrivalent, Adjuvanted Nathan Bolton MD Work Phone: [facility] 05-05-2020 Influenza, Seasonal, Quadrivalent, Adjuvanted Nathan Bolton MD Work Phone: [facility] 05-18-2019 Influenza, injectabl e, Madin [place] Canine Kidney, preservative free, quadrivalent Nathan Bolton MD Work Phone: [facility] 11-20-2018 zoster vaccine recombinant Jade Bolton MD Work Phone: [facility] 05-13-2018 Seasonal trivalent influenza vaccine, adjuvanted, preservative free Nathan Bolton MD Work Phone: [facility] 02-17-2018 zoster vaccine recombinant Jade Bolton MD Work Phone: [facility] 09-06-2017 pneumococcal polysaccharide vaccine, 23 valent Nathan Bolton MD Work Phone: [facility] 05-27-2017 tetanus and diphther ia toxoids, adsorbed, preservative free, for adult use (5 Lf of tetanus toxoid and 2 Lf of diphtheria toxoid) Nathan Bolton MD Work Phone: [facility] 04-29-2017 influenza, high dose seasonal, preservative-free Nathan Bolton MD Work Phone: [facility] 05-30-2016 influenza, high dose seasonal, preservative-free Nathan Bolton MD Work Phone: [facility] 05-30-2016 pneumococcal conjuga te vaccine, 13 valent Nathan Bolton MD Work Phone: [facility] 06-08-2015 influenza, high dose seasonal, preservative-free Nathan Bolton MD Work Phone: [facility] Healthcare Payers Date Payer Category Payer Private Health Insurance 2020 Medicaid [employer] MEDICARE A DVANTAGE [id number] 2020 Medicare [id number] 2020 Medicare (Managed Care) [employer] [place] [id number] 2020 Medicare HMO [employer] MEDICARE [id number] 1959 Medicare [id number] 1946 Unknown [id number] 2.16.840.1.077671.3.579.2. 593 1946 Unknown [id number] 2.16.840.1.944575.3.579.2. 593 1946 Unknown [id number] 2.16.840.1.069461.3.579.2. 593 1946 Unknown [id number] 2.16.840.1.965412.3.579.2. 593 1946 Unknown [id number] 2.16.840.1.862900.3.579.2. 593 1946 Unknown [id number] 2.16.840.1.704001.3.579.2. 593 1946 Unknown [id number] 2.16.840.1.081749.3.579.2. 593 1946 Unknown [id number] 2.16.840.1.543134.3.579.2. 593 1946 Unknown [id number] 2.16.840.1.884934.3.579.2. 593 1946 Unknown [id number] 2.16.840.1.541104.3.579.2. 593 1946 Unknown [id number] 2.16.840.1.594938.3.579.2. 593 1946 Unknown [id number] 2.16.840.1.912429.3.579.2. 1286 1946 Unknown [id number] 2.16.840.1.649163.3.579.2. 1286 1946 Unknown [id number] 2.16.840.1.133690.3.579.2. 718 1946 Unknown [id number] 2.16.840.1.029631.3.579.2. 1259 1946 Unknown [id number] 2.16.840.1.311616.3.579.2. 1259 1946 Unknown [id number] 2.16.840.1.170892.3.579.2. 1259 1946 Unknown [id number] 2.16.840.1.816212.3.579.2. 1259 1946 Unknown [id number] 2.16.840.1.415930.3.579.2. 9 1946 Unknown [id number] 2.16.840.1.390824.3.579.2. 1259 1946 Unknown [id number] 2.16.840.1.479140.3.579.2. 1259 1946 Unknown [id number] 2.16.840.1.802021.3.579.2. 1259 1946 Unknown [id number] 2.16.840.1.034060.3.579.2. 1259 1946 Unknown [id number] 2.16.840.1.962860.3.579.2. 196 Social History Date Type Detail Facility Start: 03-27-2019 End: 02-04-2024 Tobacco smoking status NHIS Never smoked tobacco [facility] Start: 03-27-2019 End: 02-04-2024 Tobacco use and exposure Smokeless tobacco non-user [facility] Start: 10-14-2020 End: 03-03-2025 Alcohol intake Lifetime non-drinker (finding) [facility] Start: 03-27-2019 History SDOH Alcohol Frequency 1 [facility] Start: 1945 Sex Assigned At Male C [facility] Start: 05-27-2022 End: 06-06-2022 Exposure to SARS-CoV-2 (event) Not sure [facility] Start: 12-05-2022 End: 02-26-2025 History of Social function [facility] Start: 12-05-2022 End: 02-26-2025 Tobacco use panel [facility] Adult Depression Screening Assessment 0 [facility] Start: 03-30-2019 Gender identity Identifies as male gender (finding) [facility] How often to you hav e a drink containing alcohol? Never [facility] Within the last year , have [...] [facility] Start: 03-03-2015 Sex Male (finding) [facility] Start: 07-08-2021 Sexual orientation Heterosexual (fin zully) [facility] How often do you nee d to have someone help you when you read instructions, pamphlets, or other written material from your doctor or pharmacy [SILS] Sometimes [facility] NEGATED: Highlighted rowStart: MAURICIOF History of tobacco use Passive smoker [facility] Medical Equipment Procedure Code Equipment Code Equipment Origin al Text Equipment Identifier Dates once daily. [id number], [id number] Start: 12-15-2018 Comment on above: once daily. [...] eval and therapy. documented in this encounter [facility] 01-27-2025 History of Present illness Narrative [...] Ayaz Santo DPM documented in this encounter [facility] 01-27-2025 Instructions Ayaz Santo DPM - 01/27/2025 1:15 PM EDT As noted documented in this encounter [facility] 12-17-2024 Note HNO ID: [id number] Author: DONALD ALBERTS, DO Service: ? Author Type: Physician Type: Progress Notes Filed: 12/17/2024 14:53 Note Text: [facility] - FOLLOW UP EVALUATION Recording using [employer] software for draft documentation of the visit was discussed with the patient/authorized new accounts representative; all questions welcomed and answered. Patient/authorized new accounts representative agreed to proceed Nathan Bolton MD [address] [facility] [address] Dear Nathan Bolton MD: I had the [...] physical therapy sessions twice a week in [place] and has previously engaged in voice therapy, which he plans to resume. He uses a [employer]-Step walker, which he finds beneficial. His is considering enrolling him in [employer] classes at the [facility] in [place] to maintain his physical activity and social [...] 50.8 0-10 Standa (more content not included)... [facility] 11-30-2024 History of Present illness Narrative [...] 100 MG capsule documented in this encounter [facility] 10-21-2024 History of Present illness Narrative [...] Ayaz Santo DPM documented in this encounter [facility] 10-21-2024 Instructions Ayaz Santo DPM - 10/21/2024 10:30 AM EDT As noted documented in this encounter [facility] 09-14-2024 Telephone encounter Note Last appt 06/18/24 [facility] Requested Prescriptions Pending Prescriptions Disp Refills carbidopa-levodopa (SINEMET) 25-100 mg per tablet 540 tablet 3 Sig: Take 2 tablets by mouth four times daily. [Every 3-hours] [facility] 09-14-2024 Miscellaneous Notes Last appt 06/18/24 [facility] Requested Prescriptions Pending Prescriptions Disp Refills carbidopa-levodopa (SINEMET) 25-100 mg per tablet 540 tablet 3 Sig: Take 2 tablets by mouth four times daily. [Every 3-hours] documented in this encounter [facility] 09-07-2024 History of Present illness Narrative [...] 50 MG tablet documented in this encounter [facility] 07-14-2024 Telephone encounter Note Summary: ST POC 07/14/2024 S.T. POC received from [employer]. Dr. Alberts reviewed and signed. POC securely faxed with confirmation of receipt received. Sent for scanning. Kathleen Flanagan LPN July 14, 2024 1:25 PM [facility] 07-14-2024 Miscellaneous Notes Summary: ST POC 07/14/2024 S.T. POC received from [employer]. Dr. Alberts reviewed and signed. POC securely faxed with confirmation of receipt received. Sent for scanning. Kathleen Flanagan LPN July 14, 2024 1:25 PM documented in this encounter [facility] 07-07-2024 History of Present illness Narrative [...] Ayaz Santo DPM documented in this encounter [facility] 07-07-2024 Instructions Ayaz Santo DPM - 07/07/2024 9:30 AM EST As noted documented in this encounter [facility] 06-19-2024 Telephone encounter Note Summary: in-step order 06/19/2024 Order sent via secured fax to [employer] at with confirmation of receipt received. Order also sent for scanning. Kathleen Flanagan LPN June 19, 2024 9:45 AM [facility] 06-19-2024 Miscellaneous Notes Summary: in-step order 06/19/2024 Order sent via secured fax to [employer] at with confirmation of receipt received. Order also sent for scanning. Kathleen Flanagan LPN June 19, 2024 9:45 AM documented in this encounter [facility] 06-18-2024 Note HNO ID: [id number] Author: ARISTEODONALD, DO Service: ? Author Type: Physician Type: Progress Notes Filed: 06/18/2024 10:18 Note Text: [facility] - FOLLOW UP EVALUATION Nathan Bolton MD [address] [place] [address] Dear Nathan Bolton MD: I had the [...] Arm, BP Po (more content not included)... [facility] 06-18-2024 History of Present illness Narrative [facility] - FOLLOW UP EVALUATION Nathan Bolton MD [address] [facility] [address] Dear Nathan Bolton MD: I had the [...] Left pathological reflexes: Kirstin's absent. Coordination Right: [id number] normal. Rapid alternating movement normal.Left: Yjzhwu-nl-qmcd normal. Rapid alternating movement normal. Gait Casual [...] or around: 12/16/24 Level of service : 21257 (20-29 min). Time spent 20 min on the day of service, which included preparing to see the patient, bmvp-hx-vzem patient care, completing clinical documentation, obtaining and/or [...] Donald Alberts DO documented in this encounter [facility] 06-01-2024 History of Present illness Narrative Associated Problem(s): Type 2 diabetes mellitus with hyperglycemia, without long-term current use of insulin ([facility]) BS elevated and due for labs. If [...] follow with neurology. documented in this encounter [facility] 05-25-2024 History of Present illness Narrative Images from the original note were not included. [address] [place] [address] [facility] [id number] Patient: Herrera Wetzel Date of : 1945 [...] DDD (degenerative disc disease), lumbar Diabetes mellitus ([facility] [place] Diabetes mellitus type 2, controlled ([facility] [place] Dyslipidemia Elevated PSA Elevated PSA Hematuria Hyperlipidemia Hypertension Kidney stone Osteoarthritis Parkinson disease ([facility] [place] Skin cancer basal and melanoma Visual impairment Past Surgical History: Procedure Laterality Date APPENDECTOMY CARDIAC SURGERY 1988 cardiac cath-no stents CATARACT EXTRACTION BILATERAL W/ ANTERIOR VITRECTOMY Bilateral 08/2022, 09/2022 CYST REMOVAL hand CYSTOSCOPY BIOPSY BLADDER N/A 01/23/2021 Performed by Yobany Gonzales MD at [facility] CYSTOSCOPY INSERTION STENT URETER Bilateral 01/23/2021 Performed by Yobany Gonzales MD at [facility] CYSTOSCOPY RETROGRADE PYELOGRAM Bilateral 01/23/2021 Performed by Yobany Gonzales MD at [facility] CYSTOURETEROSCOPY DIAGNOSTIC Bilateral 01/23/2021 Performed by Yobnay Gonzales MD at [facility] NEEDLE BIOPSY FUSION PROSTATE N/A 07/04/2021 Performed by Yobany Gonzales MD at [facility] SURGERY SKIN CANCER EXCISION [place] ON [...] in the morning. Indications: high blood pressure. rdjjbgyh-nlmq-MD-calcium &mins (THERAGRAN-M) 9 mg iron-400 mcg tablet [...] No interval gross hematuria. (pt does bruse/bleed easily--continuous churn buttermaker issue) ==== 12/21/2020 ==== history gross hematuria. [...] for your understanding. documented in this encounter [facility] 03-23-2024 History of Present illness Narrative Images [...] Ayaz Santo DPM documented in this encounter [facility] 03-23-2024 Instructions Ayaz Santo DPM - 03/23/2024 10:15 AM EDT As noted documented in this encounter [facility] 12-26-2023 Instructions Donald Alberts DO - [...] Compazine or Phenergan. documented in this encounter [facility] 12-26-2023 Note HNO ID: [id number] Author: DONALD ALBERTS DO Service: ? Author Type: Physician Type: Progress Notes Filed: 12/26/2023 13:43 Note Text: [facility] - FOLLOW UP EVALUATION Donald Alberts [address] [facility] [address] Nathan Bolton MD [address] [facility] [address] Herrera Wetzel is a 78 year old male with a history of PD. He is seen with his . Interval History Since Last Visit: The patient is having more issues with falling. 4(four) falls. Going to PT and DtD. Better with U-STEP Walking Stabilizer Walker. Wearing-off causes lots of trouble with his walking. More festinating. More atiomrgp-rc-ygkx (FOG). The patient denies any recent illness [...] no murmur Extremitie (more content not included)... [facility] 12-26-2023 History of Present illness Narrative [facility] - FOLLOW UP EVALUATION Donald Alberts [address] [facility] [address] Nathan Bolton MD [address] [facility] [address] Herrera Wetzel is a 78 year old male with a history of PD. He is seen with his . Interval History Since Last Visit: The patient is having more issues with falling. 4(four) falls. Going to PT and DtD. Better with U-STEP Walking Stabilizer Walker. Wearing-off causes lots of trouble with his walking. More festinating. More vwzmjfry-ap-ibzu (FOG). The patient denies any recent illness [...] Left pathological reflexes: Kirstin's absent. Coordination Right: Uezfvq-nn-nvge normal. Rapid alternating movement normal.Left: Mrvuxx-xg-tnsf normal. Rapid alternating movement normal. Gait Casual [...] Based on today's exam the patient is Sluy and Yahr stage 4 (Severe disability; still [...] counseling regarding preparing to see the patient, weww-uh-rcmt patient care, completing clinical documentation, obtaining and/or reviewing separately obtained history, performing a medically appropriate examination, counseling and educating the patient/family/caregiver, ordering medications, tests, or procedures, and communicating results to the patient/family/caregiver. I tried to answer all of the patient's questions and concerns during this visit. Donald Alberts, Senior Staff Neurologist - [facility] documented in this encounter [facility] 09-10-2023 History of Present illness Narrative [...] contrast w KUB documented in this encounter [facility] 06-14-2023 Note HNO ID: [id number] Author: Donald Alberts, DO Service: ? Author Type: Physician Type: Progress Notes Filed: 06/14/2023 3:34 PM Note Text: [facility] - FOLLOW UP EVALUATION Nathan Bolton MD [address] [facility] [address] Herrera Wetzel is a 77 year old male with a history of PD. He is seen with his . Interval History Since Last Visit: The patient had a swallowing test in late november 2022 - no issues other than more focus on swallowing was made to the patient. He is going to [facility] still. 1 fall in November [...] Cardiac: Regular r (more content not included)... [facility] 02-20-2023 Miscellaneous Notes Last appt 12/05/22 [facility] Requested Prescriptions Pending Prescriptions Disp Refills carbidopa-levodopa (SINEMET) 25-100 mg per tablet 540 tablet 3 Sig: Take 1.5 tablets by mouth four times daily. documented in this encounter [facility] 12-13-2022 Note PROCEDURE: XR HIP RT [...] authenticated by: AYAZ NICOLE Date: 2022-12-13 09:47 [facility] 12-13-2022 Note PROCEDURE: XR FOREAR M [...] authenticated by: AYAZ NICOLE Date: 2022-12-13 09:43 [facility] 12-13-2022 Note PROCEDURE: XR FOREAR M [...] authenticated by: AYAZ NICOLE Date: 2022-12-13 09:43 [facility] 12-05-2022 Note HNO ID: [id number] Author: Donald Alberts, DO Service: ? Author Type: Physician Type: Progress Notes Filed: 12/05/2022 2:18 PM Note Text: [facility] - FOLLOW UP EVALUATION Donald Alberts [address] [facility] [address] Nathan Bolton MD [address] [facility] [address] Herrera Wetzel is a 77 year old male with a history of parkinsonism. He is seen with family. Interval History Since Last Visit: He is falling. There is more sogjceoy-hf-ohdl (FOG) - this is the cause of the falls. He has fallen while he is carrying things. Multitasking is a big issue. There were two falls in the post op period following cataract surgery. FOG seems to be worse in the PM. There is drooling at night. The mucous in the back of the throat is the issue. No CHEMISTRY DEPARTMENT CHAIR for 6 years. The Sinemet is not [...] Right pathological reflex (more content not included)... [facility] 12-05-2022 Instructions Donald Alberts, - 12/05/2022 2:12 PM EDT Medications 8A 1130A 3P 6P Sinemet 25/100 1.5 1.5 1.5 1.5 Azilect 1mg 1 0 0 0 documented in this encounter [facility] 12-05-2022 History of Present illness Narrative [facility] - FOLLOW UP EVALUATION Donald Alberts [address] [facility] [address] Nathan Bolton MD [address] [facility] [address] Herrera Wetzel is a 77 year old male with a history of parkinsonism. He is seen with family. Interval History Since Last Visit: He is falling. There is more hqphfiok-fa-mtvt (FOG) - this is the cause of the falls. He has fallen while he is carrying things. Multitasking is a big issue. There were two falls in the post op period following cataract surgery. FOG seems to be worse in the PM. There is drooling at night. The mucous in the back of the throat is the issue. No CHEMISTRY DEPARTMENT CHAIR for 6 years. The Sinemet is not [...] Left pathological reflexes: Kirstin's absent. Coordination Right: Ctidyd-bp-nfcb normal. Rapid alternating movement normal.Left: Aikduw-yc-yhhq normal. Rapid alternating movement normal. Gait Casual [...] addressed during this visit: Pd (parkinson's disease) ([facility]) (primary encounter diagnosis) Sialorrhea Hypophonia Plan: Continue current antiparkinsonian regimen as dosed other than increasing Sinemet 2. PA for botulinum toxin (Myobloc) injections 3. CHEMISTRY DEPARTMENT CHAIR locally for swallow evaluation Return in about 6 months (around 06/07/2023). Medical decision making was high complexity due to patient's, multiple symptoms, advancing disease The total time spent on the patient care was 30 minutes with greater than 50% of the time spent on counseling regarding preparing to see the patient, nixg-ry-tniq patient care, completing clinical documentation, obtaining and/or reviewing separately obtained history, performing a medically appropriate examination, counseling and educating the patient/family/caregiver, ordering medications, tests, or procedures, communicating with other HCPs (not separately reported), communicating results to the patient/family/caregiver, and care coordination (not separately reported) Donald Alberts DO Senior Staff Neurologist - [facility] Diagnosis: Sialorrhea (K11.7) Current Examination: There is [...] EMG guidance: Yes documented in this encounter [facility] 09-27-2022 Note OPERATIVE NOTE OPERATION DATE: 09/27/2022 SURGEON: Saniya aGrzon D.O. PREOPERATIVE DIAGNOSIS: Nuclear sclerotic cataract right [...] ensuring mobility, phacoemulsification was performed in a tkehyri-xam-buxsdk-type fashion. After all nuclear material had been [...] following day for postoperative care. [facility] 09-27-2022 Note PREOPERATIVE HISTORY AND PHYSICAL [...] forward with his elective procedure. [facility] 09-10-2022 Miscellaneous Notes Requested Prescriptions Pending Prescriptions Disp Refills rasagiline (AZILECT) 1 mg tab 90 tablet 1 Sig: Take 1 tablet by mouth once daily. Electronically signed by [facility] Elvis Karan at 09/10/2022 10:15 AM EST documented in this encounter [facility] 08-30-2022 Note OPERATIVE NOTE OPERATION DATE: [...] ensuring mobility, phacoemulsification was performed in a zlsfuyl-pqe-voixjm-type fashion. After all nuclear material had been [...] following day for postoperative care. [facility] 08-30-2022 Note HISTORY AND PHYSICAL EXAMINATION [...] forward with his elective procedure. [facility] 06-27-2022 Note CONSULTATION CONSULTATION DATE: 06/27/2022 [...] up on a p.r.n. basis. [facility] 06-22-2022 Miscellaneous Notes I spoke with Mr. Wetzel to inform her MRI for Herrera is normal per Dr. Patino. ----- Message from Juan Patino MD sent at 06/20/2022 2:51 PM EST ----- Regarding: MRI results Suzanne, I am covering for Dr. Alberts today. Please let this patient know that his MRI results came back normal. Thanks, Dr. Patino documented in this encounter [facility] 06-20-2022 History of Present illness Narrative [...] 2022 1:15 PM documented in this encounter [facility] 06-06-2022 History of Present illness Narrative [facility] - FOLLOW UP EVALUATION Nathan Bolton MD [address] [facility] [address] Herrera Wetzel is a 76 year old male with a history of PD. He is seen with his . Interval History Since Last Visit: The patient notes that he is more clumsy - the speech has worsened over the last couple of weeks. the walking has had more vdtpplcr-vo-yogc (FOG). No falls are noted. The notes [...] Left pathological reflexes: Kirstin's absent. Coordination Right: Krodjc-pb-ehuq normal. Rapid alternating movement normal. Left: Cjjzpj-jo-ivqu normal. Rapid alternating movement normal. Gait Casual [...] counseling regarding preparing to see the patient, wvuq-gf-cqik patient care, completing clinical documentation, obtaining and/or reviewing separately obtained history, performing a medically appropriate examination, counseling and educating the patient/family/caregiver, ordering medications, tests, or procedures, and communicating results to the patient/family/caregiver. I tried to answer all of the patient's questions and concerns during this visit. Donald Alberts DO Senior Staff Neurologist - [facility] documented in this encounter [facility] 05-15-2022 Note CONSULTATION CONSULTATION DATE: 05/15/2022 CHIEF COMPLAINT: Low back pain, posterior thigh pain. HISTORY OF PRESENT ILLNESS: This is a very pleasant, 76-year-old gentleman who is accompanied by his . The patient suffers from Parkinson's. The patient is being treated at [facility] with regards to this. The patient [...] patient currently takes Mobic 7.5 daily, Tylenol znrc-xwb-ewnxmvl. The patient also is on Sinemet, metformin, [...] IM. CC: Nathan Bolton M.D. [facility] Evaluation note Diagnosis PD (Parkinson's disease) ([facility])- Primary Paralysis agitans Dysarthria [facility] Diagnosis PD (Parkinson's disease) (HCC)- Primary Paralysis agitans Sialorrhea Disturbance of salivary secretion Hypophonia Other voice and resonance disorders [facility] Diagnosis PD (Parkinson's disease) (HCC) Paralysis agitans [facility] Diagnosis Sialorrhea- Primary Disturbance of salivary secretion [facility] Diagnosis Epigastric abdominal pain- Primary Abdominal pain, epigastric documented in this encounter [facility] HealthcareEvaluation note* Diagnosis Parkinson's disease without dyskinesia or fluctuating manifestations (HCC)- Primary Sialorrhea Disturbance of salivary secretion [facility] Diagnosis PD (Parkinson's disease) (HCC) Paralysis agitans Dysarthria [facility] Diagnosis Epigastric abdominal pain- [...] classified elsewhere (CMS/HCC) documented in this encounter [facility] HealthcareEvaluation note* Diagnosis Epigastric abdominal pain- Primary [...] insulin (CMS/HCC)- Primary [facility] Diagnosis Parkinson's disease without dyskinesia or fluctuating manifestations (HCC)- Primary Hypokinetic Parkinsonian dysphonia (HCC) Dysphonia [facility] Diagnosis Epigastric abdominal pain- Primary [...] with discogenic back pain Parkinson disease, symptomatic ([facility]) Paralysis agitans Immunodeficiency due to conditions classified elsewhere ([facility]) Dermatophytosis of nail- Primary Dystrophic nail Other specified disease of nail Pain around toenail, right foot Pain around toenail, left foot documented in this encounter [facility] HealthcareEvaluation note* Diagnosis Dermatophytosis of nail- Primary Dystrophic nail Other specified disease of nail Pain around toenail, right foot Pain around toenail, left foot documented in this encounter [facility] HealthcareEvaluation [facility]* Diagnosis Epigastric abdominal pain- Primary Abdominal pain, epigastric Type 2 diabetes mellitus with hyperglycemia, without long-term current use of insulin ([facility])- Primary Essential hypertension, benign ([facility]) Essential hypertension, benign DDD (degenerative disc disease), lumbar Degeneration of lumbar or lumbosacral intervertebral disc Parkinson disease, symptomatic ([facility]) Paralysis agitans Encounter for long-term (current) use of medications Encounter for long-term (current) use of other medications Dyslipidemia ([facility]) Other and unspecified hyperlipidemia Type 2 diabetes mellitus with other specified complication, without long-term current use of insulin ([facility]) Essential hypertension, benign ([facility])- Primary Essential hypertension, benign Fall, subsequent encounter Closed fracture of body of sternum with delayed healing Closed fracture of body of sternum with routine healing- Primary Parkinson disease, symptomatic ([facility]) Paralysis agitans Unsteady gait Abnormality of gait Essential hypertension, benign ([facility]) Essential hypertension, benign Type 2 diabetes mellitus with hyperglycemia, without long-term current use of insulin ([facility])- Primary Essential hypertension, benign (CMS/HCC) Essential hypertension, benign Degeneration of intervertebral disc of lumbar region with discogenic back pain Parkinson disease, symptomatic ([facility]) Paralysis agitans Immunodeficiency due to conditions classified elsewhere ([facility]) Strain of calf muscle, subsequent encounter- Primary documented in this encounter [facility] HealthcareEvaluation note* Diagnosis Hematuria, unspecified type- Primary [...] gross Gross hematuria documented [facility] encounter [facility]* Diagnosis PD (Parkinson's disease) (HCC) Paralysis agitans [facility] Diagnosis Epigastric abdominal pain- Primary [...] toenail, left foot documented in this encounter [facility] HealthcareEvaluation note* Diagnosis Epigastric abdominal pain- Primary [...] hyperglycemia, without long-term current use of insulin ([facility])- Primary Essential hypertension, benign (CMS/HCC) Essential hypertension, benign Degeneration of intervertebral disc of lumbar region with discogenic back pain Parkinson disease, symptomatic (CMS/HCC) Paralysis agitans Immunodeficiency due to conditions classified elsewhere ([facility]) Traumatic closed nondisplaced fracture of one rib with routine healing, left- Primary Kidney stone Calculus of kidney Type 2 diabetes mellitus with hyperglycemia, without long-term current use of insulin ([facility]) Fall, subsequent encounter Parkinson disease, symptomatic (CMS/HCC) Paralysis agitans 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 II or unspecified type diabetes mellitus with ophthalmic manifestations, not stated as uncontrolled Type 2 diabetes mellitus with hyperglycemia, without long-term current use of insulin ([facility])- Primary Essential hypertension, benign (CMS/HCC) Essential hypertension, benign Degeneration of intervertebral disc of lumbar region with discogenic back pain Parkinson disease, symptomatic (CMS/HCC) Paralysis agitans Acute cystitis without hematuria documented in this encounter [facility] HealthcareEvaluation note* Diagnosis Epigastric abdominal pain- Primary Abdominal pain, epigastric Type 2 diabetes mellitus with hyperglycemia, without long-term current use of insulin ([facility])- Primary Essential hypertension, benign Essential hypertension, benign [...] long-term current use of insulin ([facility])- Primary Essential hypertension, benign Essential hypertension, benign Degeneration of intervertebral disc of lumbar region with discogenic back pain Parkinson disease, symptomatic (HCC) Paralysis agitans Immunodeficiency due to conditions classified elsewhere ([facility]) Traumatic closed nondisplaced fracture of one rib with routine healing, left- Primary Kidney stone Calculus of kidney Type 2 diabetes mellitus with hyperglycemia, without long-term current use of insulin ([facility]) Fall, subsequent encounter Parkinson disease, symptomatic (HCC) Paralysis agitans 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[facility]) Type II or unspecified type diabetes mellitus with ophthalmic manifestations, not stated as uncontrolled Type 2 diabetes mellitus with hyperglycemia, without long-term current use of insulin ([facility])- Primary Essential hypertension, benign Essential hypertension, benign Degeneration of intervertebral disc of lumbar region with discogenic back pain Parkinson disease, symptomatic (HCC) Paralysis agitans Acute cystitis without hematuria Dermatophytosis of nail- Primary Dystrophic nail Other specified disease of nail Pain around toenail, right foot Pain around toenail, left foot documented in this encounter [facility] HealthcareEvaluation note* Diagnosis Epigastric abdominal pain- Primary Abdominal pain, epigastric Type 2 diabetes mellitus with hyperglycemia, without long-term current use of insulin ([facility])- Primary Essential hypertension, benign Essential hypertension, benign DDD (degenerative disc disease), lumbar Degeneration of lumbar or lumbosacral intervertebral disc Parkinson disease, symptomatic (HCC) Paralysis agitans Encounter for long-term (current) use of medications Encounter for long-term (current) use of other medications Dyslipidemia Other and unspecified hyperlipidemia Type 2 diabetes mellitus with other specified complication, without long-term current use of insulin ([facility]) Essential hypertension, benign- Primary Essential hypertension, benign Fall, subsequent encounter Closed fracture of body of sternum with delayed healing Closed fracture of body of sternum with routine healing- Primary Parkinson disease, symptomatic (HCC) Paralysis agitans Unsteady gait Abnormality of gait Essential hypertension, benign Essential hypertension, benign Type 2 diabetes mellitus with hyperglycemia, without long-term current use of insulin ([facility])- Primary Essential hypertension, benign Essential hypertension, benign Degeneration of intervertebral disc of lumbar region with discogenic back pain Parkinson disease, symptomatic (HCC) Paralysis agitans Immunodeficiency due to conditions classified elsewhere ([facility]) Traumatic closed nondisplaced fracture of one rib with routine healing, left- Primary Kidney stone Calculus of kidney Type 2 diabetes mellitus with hyperglycemia, without long-term current use of insulin ([facility]) Fall, subsequent encounter Parkinson disease, symptomatic (HCC) Paralysis agitans 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[facility]) Type II or unspecified type diabetes mellitus with ophthalmic manifestations, not stated as uncontrolled Type 2 diabetes mellitus with hyperglycemia, without long-term current use of insulin ([facility])- Primary Essential hypertension, benign Essential hypertension, benign Degeneration of intervertebral disc of lumbar region with discogenic back pain Parkinson disease, symptomatic (HCC) Paralysis agitans Acute cystitis without hematuria Type 2 diabetes mellitus with hyperglycemia, without long-term current use of insulin ([facility])- Primary Essential hypertension, benign Essential hypertension, benign Parkinson disease, symptomatic (HCC) Paralysis agitans Degeneration of intervertebral disc of lumbar region with discogenic back pain Dysphagia, unspecified type documented in this encounter [facility]* Diagnosis Epigastric abdominal pain- Primary Abdominal pain, epigastric Type 2 diabetes mellitus with hyperglycemia, without long-term current use of insulin ([facility])- Primary Essential hypertension, benign Essential hypertension, benign DDD (degenerative disc disease), lumbar Degeneration of lumbar or lumbosacral intervertebral disc Parkinson disease, symptomatic (HCC) Paralysis agitans Encounter for long-term (current) use of medications Encounter for long-term (current) use of other medications Dyslipidemia Other and unspecified hyperlipidemia Type 2 diabetes mellitus with other specified complication, without long-term current use of insulin ([facility]) Essential hypertension, benign- Primary Essential hypertension, benign Fall, subsequent encounter Closed fracture of body of sternum with delayed healing Closed fracture of body of sternum with routine healing- Primary Parkinson disease, symptomatic (HCC) Paralysis agitans Unsteady gait Abnormality of gait Essential hypertension, benign Essential hypertension, benign Type 2 diabetes mellitus with hyperglycemia, without long-term current use of insulin ([facility])- Primary Essential hypertension, benign Essential hypertension, benign [...] encounter [facility] HealthcareInstructionsNot on filedocumented in this encounter[facility] Summary Purpose Family History No Family History Records FoundNo Family History Records FoundNo Family History Records FoundNo Family History Records FoundNo Family History Records FoundNo Family History Records FoundNo Family History Records FoundNo Family History Records FoundNo Family History Records FoundNo Family History Records Found Advance Directives Documents on File Type Date Recorded 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 Expl anation Living Will 06/20/2021 9:38 AM 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 06/20/2021 9:37 AM Reason for Referral Specialty Diagnoses / Procedures Referred By El chaves Referred To Contact Diagnoses PD (Parkinson's disease) (HCC) Dysarthria Procedures PROVIDER ORDERED FOLLOW UP OFFICE/OUTPATIENT [facility] 60-74 MINUTES Donald Alberts T, DO [address] [place] [address] Referral ID Status Reason Start Date Expiration Date V isits Requested Visits Authorized [id number] Pending Review 12/04/2022 03/04/2023 1 1 Specialty Diagnoses / Procedures Referred By El chaves Referred To Contact [facility] Diagnoses PD (Parkinson's disease) (HCC) Dysarthria Procedures MRI BRAIN WO IVCON MRI BRAIN BRAIN STEM W/O CONTRAST MATERIAL Donald Alberts DO [address] [place] [address] [facility] Referral ID Status Reason Start Date Expiration Date Visits Requested Visits Authorized [id number] Authorized Auto-Generat ed Referral 06/06/2022 07/06/2023 1 1 Specialty Diagnoses / Procedures Referred By El chaves Referred To Contact Diagnoses PD (Parkinson's disease) ([facility]) Procedures PROVIDER ORDERED FOLLOW UP OFFICE/OUTPATIENT [facility] MDM 60-74 MINUTES Donald Alberts DO [address] [place] [address] Referral ID Status Reason Start Date Expiration Date V isits Requested Visits Authorized [id number] Pending Review 06/07/2023 09/05/2023 1 1 Specialty Diagnoses / Procedures Referred By El chaves Referred To Contact [facility] Diagnoses PD (Parkinson's disease) ([facility]) Sialorrhea Hypophonia Procedures CONSULT TO SPEECH THERAPY OFFICE/OUTPATIENT [facility] 60-74 MINUTES Donald Alberts, DO [address] [place] [address] [facility] [place] [address] Referral ID Status Reason Start Date Expiration Date Visits Requested Visits Authorized [id number] Pending Review Auto-Generat ed Referral 12/05/2022 12/05/2023 1 1 Specialty Diagnoses / Procedures Referred By El chaves Referred To Contact [facility] Diagnoses PD (Parkinson's disease) ([facility]) Dysarthria Procedures MRI BRAIN WO IVCON MRI BRAIN BRAIN STEM W/O CONTRAST MATERIAL Donald Alberts, [address] [place] [address] Mr [facility] [place] [address] Referral ID Status Reason Start Date Expiration Date V isits Requested Visits Authorized [id number] Closed Auto-Generate d Referral 06/06/2022 07/06/2023 1 1 Specialty Diagnoses / Procedures Referred By El chaves Referred To Contact Diagnoses Parkinson's disease without dyskinesia or fluctuating manifestations (HCC) Procedures PROVIDER ORDERED FOLLOW UP OFFICE/OUTPATIENT [facility] 60 MINUTES Donald Alberts DO [address] [place] [address] Referral ID Status Reason Start Date Expiration Date V isits Requested Visits Authorized [id number] Authorized 12/16/2024 03/16/2025 1 1 Specialty Diagnoses / Procedures Referred By El chaves Referred To Contact [facility] Diagnoses 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) Procedures CONSULT TO SPEECH THERAPY OFFICE/OUTPATIENT [facility] 60 MINUTES Donald Alberts DO [address] [place] [id number] [facility] [place] [address] Referral ID Status Reason Start Date Expiration Date Visits Requested Visits Authorized [id number] Pending Review Auto-Generat ed Referral 06/18/2025 1 1 Additional Source Comments (unrecognized sect ion and content) No Status Records FoundNo Status Records FoundNo Status Records FoundNo Status Records FoundNo Status Records FoundNo Status Records FoundNo Status Records FoundNo Status Records FoundNo Status Records FoundNo Status Records Found INFORMATION SOURCE (unrecogn ized section and content) DATE CREATED AUTHOR 03/26/2020 [facility] DATE CREATED AUTHOR AUTHOR'S ORGANIZ ATION 11/22/2020 [facility] DATE CREATED AUTHOR AUTHOR'S ORGANIZ ATION 01/04/2023 [facility] DATE CREATED AUTHOR AUTHOR'S ORGANIZ ATION 06/17/2023 [facility] DATE CREATED AUTHOR AUTHOR'S ORGANIZ ATION 05/20/2024 [facility] DATE CREATED AUTHOR AUTHOR'S ORGANIZ ATION 05/26/2024 [facility] DATE CREATED AUTHOR AUTHOR'S ORGANIZ ATION 07/18/2024 [facility] DATE CREATED AUTHOR AUTHOR'S ORGANIZ ATION 12/24/2024 [facility] DATE CREATED AUTHOR AUTHOR'S ORGANIZ ATION 03/05/2025 [facility] DATE CREATED AUTHOR AUTHOR'S ORGANIZ ATION 03/20/2025 [facility] Source Comments (unrecognize d section and content) In the event this informatio n is protected by the Federal Confidentiality of Alcohol and Drug Abuse Patient Records regulations: The Federal rules restrict any use of the information to criminally investigate or prosecute any alcohol or drug abuse patient.[facility] Center[facility] the event this information is protected by the Federal Confidentiality of Alcohol and Drug Abuse Patient Records regulations: The Federal rules restrict any use of the information to criminally investigate or prosecute any alcohol or drug abuse patient.[facility] Center[facility] the event this information is protected by the Federal Confidentiality of Alcohol and Drug Abuse Patient Records regulations: The Federal rules restrict any use of the information to criminally investigate or prosecute any alcohol or drug abuse patient.[facility] Center[facility] the event this information is protected by the Federal Confidentiality of Alcohol and Drug Abuse Patient Records regulations: The Federal rules restrict any use of the information to criminally investigate or prosecute any alcohol or drug abuse patient.[facility] CenterIn the event this information is protected by the Federal Confidentiality of Alcohol and Drug Abuse Patient Records regulations: The Federal rules restrict any use of the information to criminally investigate or prosecute any alcohol or drug abuse patient.[facility] CenterIn the event this information is protected by the Federal Confidentiality of Alcohol and Drug Abuse Patient Records regulations: The Federal rules restrict any use of the information to criminally investigate or prosecute any alcohol or drug abuse patient.[facility] CenterIn the event this information is protected by the Federal Confidentiality of Alcohol and Drug Abuse Patient Records regulations: The Federal rules restrict any use of the information to criminally investigate or prosecute any alcohol or drug abuse patient.[facility] CenterIn the event this information is protected by the Federal Confidentiality of Alcohol and Drug Abuse Patient Records regulations: The Federal rules restrict any use of the information to criminally investigate or prosecute any alcohol or drug abuse patient.[facility] CenterIn the event this information is protected by the Federal Confidentiality of Alcohol and Drug Abuse Patient Records regulations: The Federal rules restrict any use of the information to criminally investigate or prosecute any alcohol or drug abuse patient.[facility] CenterIn the event this information is protected by the Federal Confidentiality of Alcohol and Drug Abuse Patient Records regulations: The Federal rules restrict any use of the information to criminally investigate or prosecute any alcohol or drug abuse patient.[facility] CenterIn the event this information is protected by the Federal Confidentiality of Alcohol and Drug Abuse Patient Records regulations: The Federal rules restrict any use of the information to criminally investigate or prosecute any alcohol or drug abuse patient.[facility] CenterIn the event this information is protected by the Federal Confidentiality of Alcohol and Drug Abuse Patient Records regulations: The Federal rules restrict any use of the information to criminally investigate or prosecute any alcohol or drug abuse patient.[facility] CenterIn the event this information is protected by the Federal Confidentiality of Alcohol and Drug Abuse Patient Records regulations: The Federal rules restrict any use of the information to criminally investigate or prosecute any alcohol or drug abuse patient.[facility] CenterIn the event this information is protected by the Federal Confidentiality of Alcohol and Drug Abuse Patient Records regulations: The Federal rules restrict any use of the information to criminally investigate or prosecute any alcohol or drug abuse patient.[facility] CenterIn the event this information is protected by the Federal Confidentiality of Alcohol and Drug Abuse Patient Records regulations: The Federal rules restrict any use of the information to criminally investigate or prosecute any alcohol or drug abuse patient.[facility] CenterIn the event this information is protected by the Federal Confidentiality of Alcohol and Drug Abuse Patient Records regulations: The Federal rules restrict any use of the information to criminally investigate or prosecute any alcohol or drug abuse patient.[facility] Reason for Visit (unrecogniz ed section [...] HIGH MDM 60-74 MINUTES Donald Alberts DO [address] [place] [address] Referral ID Status Reason Start Date Expiration Date V isits Requested Visits Authorized [id number] Pending Review 12/04/2022 03/04/2023 1 1 Reason [...] 60-74 MINUTES Donald Alberts DO [address] [place] [address] [facility] [address] [place] [address] Referral ID Status Reason Start Date Expiration Date V isits Requested Visits Authorized [id number] Authorized 07/29/2023 07/28/2024 99 99 Specialty Diagnoses / Procedures Referred By El chaves Referred To Contact MR IMAGING Diagnoses PD (Parkinson's disease) (HCC) Dysarthria Procedures MRI BRAIN WO IVCON MRI BRAIN BRAIN STEM W/O CONTRAST MATERIAL Donald Alberts, DO [address] [place] [address] [place] [address] Referral ID Status Reason Start Date Expiration Date V isits Requested Visits Authorized [id number] Closed Auto-Generate d Referral 06/06/2022 07/06/2023 1 [...] today for diabetic foot care. PCP: Dr. oHang PRICE 11/30/24, A1C: 7.5, BS: 180-100 Reason Comments Follow-up 3m f/upA1C up in the 9's Choking Trouble swallowing Reason Comments Med Refill Care Teams (unrecognized sec tion and content) Marine Electronics Technician Relationship Specialty Start Date End Date Nathan Bolton [address] [place] [address] PCP - General Family Medicine 07/29/20 Marine Electronics Technician Relationship Specialty Start Date End Date Nathan Bolton [address] [place] [address] PCP - General Family Medicine 07/29/20 Marine Electronics Technician Relationship Specialty Start Date End Date Hoang Nathan Alonso [address] [place] [address] PCP - General Family Medicine 07/29/20 Marine Electronics Technician Relationship Specialty Start Date End Date Mamegideon Nathan Alonso [address] [place] [address] PCP - General Family Medicine 07/29/20 Marine Electronics Technician Relationship Specialty Start Date End Date Nathan Bolton Gavin [address] [place] [address] PCP - General Family Medicine 07/29/20 Marine Electronics Technician Relationship Specialty Start Date End Date Nathan Bolton [address] [place] [address] PCP - General Family Medicine 07/29/20 Marine Electronics Technician Relationship Specialty Start Date End Date Nathan Bolton [address] [place] [address] PCP - General Family Medicine 07/29/20 Marine Electronics Technician Relationship Specialty Start Date End Date Nathan Bolton MD [address] [place] [address] PCP - General Family Medicine 09/10/23 Marine Electronics Technician Relationship Specialty Start Date End Date Nathan Bolton MD [address] [place] [address] PCP - General Family Medicine 09/10/23 Marine Electronics Technician Relationship Specialty Start Date End Date Nathan Bolton [address] [place] [address] PCP - General Family Medicine 07/29/20 Marine Electronics Technician Relationship Specialty Start Date End Date Nathan Bolton [address] [place] [address] PCP - General Family Medicine 07/29/20 Marine Electronics Technician Relationship Specialty Start Date End Date Nathan Bolton [address] [place] [address] PCP - General Family Medicine 07/29/20 Marine Electronics Technician Relationship Specialty Start Date End Date Nathan Bolton MD [address] [place] [address] PCP - General Family Medicine 09/10/23 Marine Electronics Technician Relationship Specialty Start Date End Date Nathan Bolton MD [address] [place] [address] PCP - General Family Medicine 09/10/23 Marine Electronics Technician Relationship Specialty Start Date End Date Nathan Bolton MD [address] [place] [address] PCP - General Family Medicine 09/10/23 Marine Electronics Technician Relationship Specialty Start Date End Date Nathan Bolton MD [address] [place] [address] PCP - General Family Medicine 07/29/20 Marine Electronics Technician Relationship Specialty Start Date End Date Nathan Bolton MD [address] [place] [address] PCP - General Family Medicine 07/29/20 Marine Electronics Technician Relationship Specialty Start Date End Date Nathan Bolton MD [address] [place] [address] PCP - General Family Medicine 07/29/20 Marine Electronics Technician Relationship Specialty Start Date End Date Nathan Bolton MD [address] [place] [address] PCP - General Family Medicine 09/10/23 Marine Electronics Technician Relationship Specialty Start Date End Date Nathan Bolton MD [address] [place] [address] PCP - General Family Medicine 09/10/23 Marine Electronics Technician Relationship Specialty Start Date End Date Nathan Bolton MD [address] [place] [address] PCP - General Family Medicine 09/10/23 Marine Electronics Technician Relationship Specialty Start Date End Date Nathan Bolton MD [address] [place] [address] PCP - General Family Medicine 09/10/23 Marine Electronics Technician Relationship Specialty Start Date End Date Nathan Bolton MD PCP - General Family Medicine 11/09/20 Marine Electronics Technician Relationship Specialty Start Date End Date Nathan Bolton MD [address] [place] [address] PCP - General Family Medicine 07/29/20 Marine Electronics Technician Relationship Specialty Start Date End Date Nathan Bolton MD [address] [place] [address] PCP - General Family Medicine 09/10/23 Marine Electronics Technician Relationship Specialty Start Date End Date Nathan Bolton MD [address] [place] [address] PCP - General Family Medicine 09/10/23 Marine Electronics Technician Relationship Specialty Start Date End Date Nathan Bolton MD [address] [place] [address] PCP - General Family Medicine 09/10/23 Marine Electronics Technician Relationship Specialty Start Date End Date Nathan Bolton MD [address] [place] [address] PCP - General Family Medicine 09/10/23 Marine Electronics Technician Relationship Specialty Start Date End Date Nathan Bolton MD [address] [place] [address] PCP - General Family Medicine 09/10/23 Marine Electronics Technician Relationship Specialty Start Date End Date Nathan Bolton MD [address] [place] [address] PCP - General Family Medicine 09/10/23 Marine Electronics Technician Relationship Specialty Start Date End Date Nathan Bolton MD [address] [place] [address] PCP - [facility] 09/10/23 Marine Electronics Technician Relationship Specialty Start Date End Date Nathan Bolton MD [address] [place] [address] PCP - [facility] 09/10/23 Marine Electronics Technician Relationship Specialty Start Date End Date Nathan Bolton MD [address] [place] [address] PCP - [facility] 09/10/23 FOR RECORDS PERTAINING TO PATIENTS WHO [...] BE BASED ON THE PRIMARY CLINICAL RECORDS. [facility] [facility]. provides no warranty or guarantee of the accuracy or completeness of information in this document.
[2025-05-03 11:09] VITALS: PULSE 91; TEMP 36.7; O2SAT 96
[2025-05-03 11:38] VITALS: BP 106/96; BP 147/65; PULSE 87; PULSE 89; O2SAT 96
[2025-05-03] MEDS: BUPIVACAINE HCL 0.25% PF 25 MG/10 ML VIAL INJ (11:41)
[2025-05-03] MEDS: 0.9 % SODIUM CHLORIDE 10 ML SYRINGE - SALINE FLUSH INJ (11:41)
[2025-05-03] MEDS: METHYLPREDNISOLONE ACETATE 80 MG/ML VIAL 40 MG INJ (11:42)
[2025-05-03] MEDS: LIDOCAINE HCL 2% 400 MG/20 ML MDV 3 ML INJ (11:42)
[2025-05-03] MEDS: IOHEXOL 240 MG/ML - 10 ML VIAL INJ (11:42)
--- NOTE | 2025-05-03 11:43 | PC.NURSE ---
half dose of steroid given per surgeon
--- NOTE | 2025-05-03 11:48 | W.PM.PROCNOT ---
Date of procedure: 05/03/25 Pre-op diagnosis: Pain due to lumbar stenosis with neurogenic claudication Post-op diagnosis: same as pre-op Procedure: Procedure: Bilateral L4-5 transforaminal epidural steroid injection Medications: Bupivacaine 0.25% 2cc, lidocaine 2% 1cc, depomedrol 80mg The patient was seen and examined in the preoperative holding area.? Informed consent was obtained and placed on the chart.? Patient was brought to the medical procedure unit and placed in the prone position where a timeout was completed verifying the correct patient, procedure site, position, and planned special equipment using sterile aseptic technique.? Under direct fluoroscopic visualization a 25-gauge Quincke tipped spinal needle was advanced at level left L4-5 to the designated neural foramen where contrast dye was injected to show adequate spread.? There was no evidence of vascular or adverse uptake.? Epidural spread was appreciated.? The above-mentioned injectate was then placed in a 1.5 mL aliquot preceded by negative aspiration.? The needle was removed. The same procedure, at the same level, was completed on the opposite side. ? Patient was taken to the postprocedural recovery area and monitored for an appropriate length of time before found suitable for discharge in the accompaniment of a responsible adult. Anesthesia: Local Surgeon: Elan Jenkins Pathology: none sent Condition: stable Disposition: no change
[2025-05-04 08:55] VITALS: O2SAT 96
== END 2025-05-03 11:50 | disposition home or self-care (01) ==
PROVIDERS: Visit Provider Anesthesiology
DX: M48.062 Spinal stenosis, lumbar region with neurogenic claudication (principal); M54.50 Low back pain, unspecified; E11.8 Type 2 diabetes mellitus with unspecified complications; Z79.84 Long term (current) use of oral hypoglycemic drugs
CPT/HCPCS: 36415; 64483; 82948; J0665; J1010; Q9966

== ENCOUNTER 2025-07-19 13:15 | Outpatient (OUT) | payer MEDICARE, SELFPAY ==
--- OUTSIDE RECORDS SUMMARY | 2025-07-07 09:46 | XMS_ITS | Encounter Summary ---
Author Organization [facility] Address [address] [place] [address] Care Team Providers Care Insulation Board Head Saw Operator Name Role Phone Nathan Hartman MD Primary Care Provider [phone] Encounter Details DateTypeDepartmentCare Team (Latest Contact Info)Vxrnefsyhrl56/10/2025 9:46 AM EST - 07/07/2025 11:59 PM ESTHospital Encounter [facility] [address] [place] [address] [place] [phone] Closed fracture of olecranon process of left ulna, initial encounter Discharge Disposition: Home or Self Care () Social History Tobacco UseTypesPacks/DayYears UsedDateSmoking Tobacco: NeverSmokeless Tobacco: NeverAlcohol UseStandard Drinks/WeekCommentsNot Currently0 (1 standard drink = 0.6 oz pure alcohol)PHQ-2AnswerDate RecordedPatient Health Questionnaire-2 Score Humiliation, Afraid, Rape, and Kick questionnaireAnswerDate Recorded Within the last year, have you been afraid of your partner or ex-partner?No 07/07/2025Emotionally AbusedNot on file07/07/2025Physically AbusedNot on file 07/07/2025Sexually AbusedNot on file07/07/2025Sex and Gender InformationValue Date RecordedSex Assigned at WzhigBtnj58/14/2025 1:30 PM EDTLegal SexMale 05/07/2025 9:39 AM EDTGender SmiotsauFibo92/14/2025 1:30 PM EDTSexual OrientationChoose not to kopekqbi08/14/2025 1:30 PM EDTdocumented as of this encounter Functional Status documented as of this encounter Medications at Time of Discharge MedicationSigDispense QuantityRefillsLast FilledStart DateEnd Date carbidopa-levodopa (Sinemet) 25-100 mg tablet Take 1.5 tablets by mouth 4 times a day.05/09/2021 gabapentin (Neurontin) 100 mg capsule Take 1 capsule by mouth Twice daily at 6am and 6pm.04/07/2025 glipiZIDE XL (Glucotrol XL) 5 mg 24 hr tablet Take 5 mg by mouth twice a day. Jardiance 25 mg Take 25 mg by mouth in the morning.09/11/2024 lancets (OneTouch UltraSoft Lancets) misc in the morning.12/15/2018 meloxicam (Mobic) 7.5 mg tablet Take 7.5 mg by mouth in the morning.03/03/2019 metFORMIN (Glucophage) 500 mg tablet Take 500 mg by mouth twice a day. metoprolol succinate XL (Toprol-XL) 50 mg 24 hr tablet Take 50 mg by mouth in the morning.10/04/2020 nitrofurantoin, macrocrystal-monohydrate, (Macrobid) 100 mg capsule TAKE 1 CAPSULE (100 MG) BY MOUTH IN THE MORNING AND BEFORE BEDTIME FOR 7 DAYS 11/30/2024 oxyCODONE-acetaminophen (Percocet) 5-325 mg tablet every 4 (four) hours if needed. ramipril (Altace) 1.25 mg capsule Take 1.25 mg by mouth in the morning.10/04/2020 rasagiline (Azilect) 0.5 mg tablet Take 1 mg by mouth in the morning. simvastatin (Zocor) 40 mg tablet Take 40 mg by mouth in the morning.02/17/2019documented as of this encounter Plan of Treatment Not on file documented as of this encounter Procedures Procedure NamePriorityDate/TimeAssociated DiagnosisCommentsXR ELBOW 3+ VIEWS KVQYLhdspkp21/10/2025 9:53 AM EST Closed fracture of olecranon process of left ulna, initial encounter documented in this encounter Results * XR elbow 3+ views left (07/07/2025 9:53 AM EST)Anatomical RegionLaterality ModalityUpper Extremities, ElbowLeftComputed RadiographySpecimen (Source) Anatomical Location / LateralityCollection Method / VolumeCollection Time Received Time07/08/2025 1:04 PM EST Impressions 07/08/2025 1:08 PM EST Impression: Large bone fragment has migrated proximally possibly connected to a retracted triceps tendon. Process could be further characterized by MRI if indicated clinically Hardware is unchanged in appearance THIS REPORT CONTAINS A SIGNIFICANT RESULT AND/OR RECOMMENDATION, WHICH REQUIRES THE ATTENTION OF THE LICENSED CAREGIVER RESPONSIBLE FOR THIS PATIENT. THEREFORE, I SPECIFICALLY DESIGNATED THIS REPORT TO BE TELEPHONED BY THE RADIOLOGY DEPARTMENT. Electronically signed: Sylvain Dempsey. Narrative 07/08/2025 1:08 PM EST Comparison May 28 History: Fracture XR ELBOW 3+ VIEWS LEFT Procedure Note Sylvain Dempsey MD - 07/08/2025 Comparison May 28 History: Fracture XR ELBOW 3+ VIEWS LEFT IMPRESSION: Impression: Large bone fragment has migrated proximally possibly connected to aretracted triceps tendon. Process could be further characterized by MRI ifindicated clinically Hardware is unchanged in appearance THIS REPORT CONTAINS A SIGNIFICANT RESULT AND/OR RECOMMENDATION, WHICHREQUIRES THE ATTENTION OF THE LICENSED CAREGIVER RESPONSIBLE FOR THIS PATIENT.THEREFORE, I SPECIFICALLY DESIGNATED THIS REPORT TO BE TELEPHONED BY THE RADIOLOGY DEPARTMENT. Electronically signed: Sylvain Dempsey. Authorizing ProviderResult TypeResult StatusChristopMorton County Custer Health MDIMG XR PROCEDURESFinal Result documented in this encounter Visit Diagnoses Diagnosis Closed fracture of olecranon process of left ulna, initial encounter documented in this encounter Care Teams Team MemberRelationshipSpecialtyStart DateEnd Date Nathan Hartman MD [address] [place] [address] PCP - GeneralFamily Dblmmfga94/15/25documented as of this encounter
--- OUTSIDE RECORDS SUMMARY | 2025-07-07 10:15 | XMS_ITS | Encounter Summary ---
Author Organization [facility] Address [address] [place] [address] Care Team Providers Care Food Safety Manager Name Role Phone Nathan Hartman MD Primary Care Provider [phone] Reason for Visit * ReasonCommentsPainPain is mostly when he turns his hand over and the pain does wake him up at night Encounter Details DateTypeDepartmentCare Team (Latest Contact Info)Nndfzuptcaw14/10/2025 10:15 AM ESTOffice Visit [facility] [address] [place] [address] [place] [phone] Irving Fair MD [address] [place] [address] Closed fracture of olecranon process of left ulna, initial encounter (Primary Dx) Social History Tobacco UseTypesPacks/DayYears UsedDateSmoking Tobacco: NeverSmokeless Tobacco: NeverAlcohol UseStandard Drinks/WeekCommentsNot Currently0 (1 standard drink = 0.6 oz pure alcohol)PHQ-2AnswerDate RecordedPatient Health Questionnaire-2 Score Humiliation, Afraid, Rape, and Kick questionnaireAnswerDate Recorded Within the last year, have you been afraid of your partner or ex-partner?No 07/07/2025Emotionally AbusedNot on file07/07/2025Physically AbusedNot on file 07/07/2025Sexually AbusedNot on file07/07/2025Sex and Gender InformationValue Date RecordedSex Assigned at IqehgWlgr65/14/2025 1:30 PM EDTLegal SexMale 05/07/2025 9:39 AM EDTGender HpuoujivPkqk63/14/2025 1:30 PM EDTSexual OrientationChoose not to hldmoeft65/14/2025 1:30 PM EDTdocumented as of this encounter Last Filed Vital Signs Vital SignReadingTime TakenCommentsBlood Pressure--Pulse--Temperature-- Respiratory Rate--Oxygen Saturation--Inhaled Oxygen Concentration--Xssxxg90.9 kg (152 lb)07/07/2025 10:00 AM EDQXyrxoo918.3 cm (5' 11 )07/07/2025 10:00 AM EST Body Mass Index21.212 10:00 AM ESTdocumented in this encounter Functional Status documented as of this encounter Progress Notes * Irving Fair MD - 07/07/2025 10:15 AM EST Images from the original note were not included. Orthopedic Surgery Subjective 05/12/2025 Orif, Fracture, Olecranon - Left 07/07/25 Patient presents today for follow-up evaluation of his left olecranon fracture s/p ORIF (DOS: 05/12/25). Patient endorses that he is doing well today with improved range of motion of his elbow and isworking with physical therapy at his facility. Patient has PMH notable for Parkinson's disease. He is accompanied by his today. History Surgical History[1] Medical History[2] Objective Exam: - Incision clean, dry, and intact. No drainage or erythema. Some suture knots removed in clinic today - Reasonable post-surgical ROM, swelling, and tenderness with full supination and pronation, extension to 15, flexion to 105. Fluid arc of motion - Sensation grossly intact distally and full motor function. Able to make a full fist. - Elbow flexion 4+/5, extension 3/5, clerk checker strength 5/5 - Brisk capillary refill Imaging: Radiographs of the left elbow obtained today in clinic show proximal and superior displacement of the olecranon tip. No evidence of hardware malposition or screw loosening. Assessment/Plan Herrera Martinez is a 79 y.o. year old male s/p Orif, Fracture, Olecranon - Left (05/12/2025). Overall he is doing well today with improved range of motion of his elbow after working with physical therapy at his facilty. Unfortunately his radiographs obtained today in clinic today demonstrate superior displacement of his main olecranon fragment, but well maintained joint space, plate and screws. We had a good discussion with the patient and his family today about his symptoms and clinical progress.At this time, we would recommend conservative management with continued PT for ROM since patient isprogressing well with therapy and able to perform ADLs. Counseled patient he will continue to have t riceps weakness. Patient and family would like to proceed with continued therapy and is not interested in any additional surgery at this time. - Continue OT for motion as tolerated. - Follow up as needed Yessica Salgado MD Orthopaedic Surgery, PGY-1 07/07/25 4:33 PM Ortho Pager [phone] May contact the on-call resident with any concerns via the Orthopaedic pager at any time. By using the attestations below, the signing clinician agrees that I have read and verify that thedocumentation has been personally reviewed by me and ensure that the documentation accurately reflects the encounter. GC: I personally saw this patient on the day of the encounter, performed the renner portion(s) of the service and participated in the management and confirm the resident's documentation. Please note there may be an additional personal documentation from me. [1] Past Surgical History: Procedure Laterality Date APPENDECTOMY [2] Past Medical History: Diagnosis Date Diabetes mellitus ([facility]) Hyperlipidemia Parkinson disease ([facility]) documented in this encounter Plan of Treatment Not on file documented as of this encounter Results * XR elbow 3+ [...] Electronically signed: Sylvain Dempsey. Authorizing ProviderResult TypeResult StatusChrisKenmore Hospital XR PROCEDURESFinal Result documented in this encounter Visit Diagnoses Diagnosis Closed fracture of olecranon process of left ulna, initial encounter- Primary Closed fracture of olecranon process of left ulna, initial encounter documented in this encounter Care Teams Team MemberRelationshipSpecialtyStart DateEnd Date Nathan Hartman MD [address] [place] [address] PCP - GeneralFamily Hmekufsn26/15/25documented as of this encounter
--- OUTSIDE RECORDS SUMMARY | 2025-07-19 13:22 | XMS_ITS | Clinical Summary ---
Author Organization [facility] Address [address] [place], [place] [id number] Care Team Providers Care Paper Deliverer Name Role Phone Nathan Hartman MD Primary Care Provider [phone] Allergies No known active allergies Medications MedicationSigDispense QuantityRefillsLast FilledStart DateEnd DateStatus ONETOUCH ULTRA BLUE TEST STRIP test strip once daily.Active ONETOUCH ULTRASOFT LANCETS lancets once daily.Active meloxicam (MOBIC) 7.5 mg tablet Take 7.5 mg by mouth once daily.Active metFORMIN ER (GLUCOPHAGE XR) 500 mg 24 hr tablet 500 mg once daily.Active simvastatin (ZOCOR) 40 mg tablet 40 mg daily at bedtime.Active aspirin, enteric coated (ASPIRIN, ENTERIC COATED) 81 mg EC tablet Take 81 mg by mouth once daily.Active Magnesium 250 mg tab Take 250 mg by mouth once daily.Active multivit-minerals/FA/lycopene (ONE-A-DAY MEN'S ORAL) Take by mouth once daily.Active glipiZIDE (GLUCOTROL XL) 5 mg 24 hr tablet Take 5 mg by mouth two times a day.Active omeprazole (PRILOSEC) 40 mg capsule Take 40 mg by mouth two times a day. One in am and one at pmActive JANUVIA 100 mg tablet Take 1 tablet by mouth once daily.5Active rasagiline (AZILECT) 1 mg tab Indications:Parkinson's disease without dyskinesia or fluctuating manifestations (HCC)Take 1 tablet by mouth once daily. 90 tablet 5Active carbidopa-levodopa (SINEMET) 25-100 mg per tablet Indications:Parkinson's disease without dyskinesia or fluctuating manifestations (HCC)Take 2 tablets by mouth four times daily. [Every 3-hours] 540 tablet 6Active atropine 1 % ophthalmic solution Indications:SialorrheaUse 1-2 drops daily as need for drooling 15 mL 3:29 PM EST07/01/2025tive carbidopa-levodopa (SINEMET) 25-100 mg per tablet Indications:PD (Parkinson's disease) (HCC)Take 2 tablets by mouth four times daily. [Every 3-hours] 540 tablet Discontinued atropine 1 % ophthalmic solution Indications:SialorrheaUse 1-2 drops daily as need for drooling 15 mL 2:51 PM EDTDiscontinued Active Problems ProblemNoted DateDiagnosed WxhqNihvaoqwhp26/10/2956Dgbyqjyhtf17/10/2023S/P epidural steroid ecaektcip73/11/2020Hypokinetic Parkinsonian orcpbaxtl00/11/2020 Encounters DateTypeDepartmentCare SgqiUagfopvzdta74/04/2025 2:30 PM ESTOffice Visit Neurology [address] [place] [address] Donald Alberts, Parkinson's disease without dyskinesia or fluctuating manifestations (HCC) (Primary Dx); Sialorrhea; Falls ynkybvpxaw35/04/2025Refill Neurology [address] [place] [address] Donald Alberts DO 06/25/20253508Mbeoke22/20/2025Refill Neurological Manda[facility] [address] [place] [address] Donald Alberts DO Refill Hvbxwfu5405/10/2025MC Get Medical Advice Neurology [address] [place] [address] Donald Alberts DO rasagiline 1 mg Tab Commonly known as: AZILECT Learn more Take 1 tablet by mouth once daily. Refilldue soon 3 refills before December 17, 2025 Prescription Details PrescribedMay 2024 Approved byDonald Alberts DO Prescription [id number] View mefrom Last 3 Months Family History Medical HistoryRelationCommentsSeizuresDaughtertremor at 99 years-oldFather RelationStatusCommentsDaughterFatherDeceased Social History Tobacco UseTypesPacks/DayYears UsedDateSmoking Tobacco: NeverSmokeless Tobacco: NeverAlcohol UseStandard Drinks/WeekCommentsNever0 (1 standard drink = 0.6 oz pure alcohol)AUDIT-CAnswerDate RecordedQ1: How often do you have a drink containing alcohol?Never03/27/2019Average Number of DrinksNot on file03/27/2019 Frequency of Binge DrinkingNot on file03/27/2019PHQ-2AnswerDate RecordedPHQ-2 /28/2025Area Deprivation IndexAnswerDate RecordedNational Score (1-100), lower number is lower rocc716907/01/2025State Score (1-10), lower number is lower phou70809/01/2024Data from: https://www.neighborhoodatlas.medicine.[facility].edu/. Last address used for z[address]/01/2024Sex and Gender InformationValueDate RecordedSex Assigned at UancfZbqb80/02/2019 6:28 PM EDT Legal WtdVpzr4012/18/2018 10:46 AM EDTGender AywbgwzdLwdu57/02/2019 6:28 PM EDT Sexual OrientationNot on file Last Filed Vital Signs Vital SignReadingTime TakenCommentsBlood Yycyfngb628/6707/01/2025 2:33 PM EST Bizar492007/01/2025 2:33 PM EUKWoqwtiyrscg33.2 ??C (97.1 ??F)10/14/2020 3:02 PM EDTRespiratory [place]ie4096 9:56 AM EDTOxygen Pyllmtpugu90%12/05/2022 1:27 PM EDTInhaled Oxygen Concentration--Wyirhh65.1 kg (167 lb 12.8 oz)06/14/2023 2:35 PM DAYEceszs093.8 cm (5' 10 )06/14/2023 2:35 PM ESTBody Mass Index24.08 06/14/2023 2:35 PM EST Plan of Treatment DateTypeDepartmentCare Team (Latest Contact Info)Qawcxmhhbtd87/23/2026 2:00 PM EDTOffice Visit Neurology [address] [place], [place] [id number] Donald Alberts, DO [address] [place] [address] 6 month follow upHealth MaintenanceDue DateLast DoneCommentsAnxiety Screening 1964Depression Yrpaooxqz67/02/1965Hepatitis C Hadbwhyjf94/02/1965Advance Directive Zfrknkupmb87/01/2025Medicare Advantage Annual Wellness Visit07/29/2024 Covid-19 Vaccine ( season)507/, 05/20/2024, 04/22/2023, Additional history existsDiabetes Nzlywfdaa28/27/42193208/24/2022, 06/20/2021, 06/20/2021, Additional history existsDTaP,Tdap,Td Vaccine (2 - Td or Tdap), 05/27/2017Pneumococcal Vaccine: 50+Completed 09/06/2017, 05/30/2016Shingrix SxsdlusEzqtluzqt44/25/2019, 02/17/2018RSV Vaccine Oyjawxufa23/16/2023Influenza NntulzbFztvdlxap21/26/2025, 05/29/2024, 05/20/2024, Additional history exists Insurance Care Teams Team MemberRelationshipSpecialtyStart DateEnd Date Nathan Hartman MD [address] [place] [address] PCP - GeneralFamily Medicine07/29/20
--- OUTSIDE RECORDS SUMMARY | 2025-07-19 13:23 | XMS_ITS | Clinical Summary ---
Author Organization [facility] Address [address] [place] [address] Care Team Providers Care Director Of Radiology Name Role Phone Nathan Hartman MD Primary Care Provider [phone] Allergies No known active allergies Medications MedicationSigDispense QuantityRefillsLast FilledStart DateEnd DateStatus carbidopa-levodopa (Parcopa) 25-100 MG disintegrating tablet Take 2 tablets by mouth in the morning and 2 tablets at noon and 2 tablets in the evening and 2 tablets before bedtime. 1 1/2 tab 4x daily.Active rasagiline (Azilect) 0.5 MG tablet Take 1 mg by mouth DailyActive aspirin 81 MG EC tablet Take 81 mg by mouth DailyActive magnesium 250 MG tablet Take by mouthActive Multiple Vitamin (multivitamin) tablet Take 1 tablet by mouth DailyActive acetaminophen (Tylenol 8 Hour) 650 MG ER tablet Take 650 mg by mouth every 8 (eight) hours if needed for mild pain Do not crush, chew, or split.Active omeprazole (PriLOSEC) [address] capsule Indications:Epigastric abdominal painTAKE 1 CAPSULE IN THE MORNING BEFORE A MEAL. DO NOT CRUSH OR CHEW 90 capsule 5Active oxyCODONE-acetaminophen (Percocet) 5-325 MG tablet every 4 (four) hours if needed for severe painActive polyethylene glycol, PEG, 3350 (Miralax) 17 g packet Take 17 g by mouth DailyActive meloxicam (Mobic) 7.5 MG tablet Indications:DDD (degenerative disc disease), lumbarTAKE 1 TABLET DAILY 90 tablet 5Active metFORMIN XR (Glucophage-XR) 500 MG 24 hr tablet Indications:Type 2 diabetes mellitus with hyperglycemia, without long-term current use of insulin (HCC)TAKE 1 TABLET IN THE MORNING AND BEFORE BEDTIME.DO NOT CRUSH, CHEW OR SPLIT 180 tablet 5Active simvastatin (Zocor) 40 MG tablet Indications:DyslipidemiaTAKE 1 TABLET AT BEDTIME 90 tablet 5Active glipiZIDE (Glucotrol) 10 MG tablet Indications:Type 2 diabetes mellitus with hyperglycemia, without long-term current use of insulin (HCC)Take 2 tablets (20 mg) by mouth in the morning and 2 tablets (20 mg) in the evening. Take before meals. 360 tablet 5Active Januvia 100 MG tablet Indications:Type 2 diabetes mellitus with hyperglycemia, without long-term current use of insulin ([facility])TAKE 1 TABLET BY MOUTH EVERY DAY 30 tablet 505Active Active Problems ProblemNoted DateDiagnosed SrzpUlawgnmgq83/06/2025 Assessment & Plan (03/03/2025 2:51 PM EDT): Notice problems swallowing and refer for speech bedside swallow eval and therapy. Acute cystitis without uekvhiklw23/05/2025Kidney stone10/02/2024 Assessment & Plan (10/02/2024 11:16 AM EST): Recent stone but passed and pain resolved. Increase fluids and monitor. Unsteady gait03/05/2024hronic midline low back pain without rqcuuywz72/15/2024 Fall12/11/2023 Assessment & Plan (10/02/2024 11:16 AM EST): Frequent falls and resume PT. Assessment & Plan (02/04/2024 1:37 PM EDT): Fall at home, froze and legs gave out. Hx of parkinson. He goes regularly to Parkinson specific therapy classes and also has regular PT. Encounter for long-term (current) use of begavwhewqy53/06/2024DD (degenerative disc disease), hiucuf9209/10/2023 Assessment & Plan (03/03/2025 2:51 PM EDT): [...] PRN. If worsens return to pain management. Qdtrfxbldnxp94/13/2024Elevated PSA09/10/2023Essential hypertension, benign 09/10/2023 Assessment & Plan (03/03/2025 [...] EDT): BP controlled and monitor PRN. Generalized zvgrdhjdxavguq21/13/2024arkinson disease, kiphdaflhum98/13/2024 Assessment & Plan (03/03/2025 2:51 PM EDT): [...] stable and follow with neurology. Epigastric abdominal pain09/10/2023 Assessment & Plan (09/10/2023 12:09 PM EST): Unclear cause of pain but possible gastritis or ulcer. Start omeprazole BID. Check UGI and US gallbladder. If pain or symptoms worsens go to ER. Type 2 diabetes mellitus with hyperglycemia, without long-term current use of zmejzhx4107/01/2023 Assessment & Plan (03/03/2025 2:52 PM EDT): [...] ADA diet and limit carbs. Resolved Problems ProblemNoted DateDiagnosed DateResolved DateTraumatic closed nondisplaced fracture of one rib with routine healing, left/11/2024 Assessment & Plan (10/02/2024 11:16 AM EST): Recent fall and fracture. Start percocet PRN. Strain of calf muscle, subsequent kesxoehzs55/01/2025 Assessment & Plan (09/07/2024 12:18 PM EST): History and exam shows calf strain. Treat with prednisone. Alternate ice and heat. Resume PT. If noimprovement may need imaging. Closed fracture of body of sternum with routine floiqce20/01/2025 Assessment & Plan (03/05/2024 2:43 PM EDT): Pain improving and use percocet PRN. Start PT. Assessment & Plan (02/04/2024 1:36 PM EDT): Due to fall at home, non displaced, routine healing. Poorly controlled pain, called in oxycodone for patient. Repeat XR in 2-3 weeks, follow up with PCP in 2-3 weeks Gross wrmciuvrp41 Immunizations ImmunizationAdministration DatesNext DueInfluenza, High Dose Seasonal, Preservative Free05/20/2024,04/29/2017,05/30/2016,06/08/2015Influenza, High-dose Seasonal, Quadrivalent, Preservative Free04/23/2022Influenza, Seasonal, Quadrivalent, Oobjindmgi87/25/2023,04/27/2021,05/05/2020Influenza, injectable, MDCK, preservative free, skgrfffewmmv20/21/2019Influenza, trivalent, adjuvanted 05/13/2018Pneumococcal Conjugate PCV Pneumococcal Polysaccharide [id number], recombinant, protein subunit RSVpreF, adjuvant reconstitu, 120mcg/0.5mL, PF (Arexvy)05/13/2023Td (adult), 5 Lf tetanus toxoid, preservative free, ehuettkr32/30/2017Zoster, Vjhxvmmtpbo57/25/2019,02/17/2018 Family History Medical HistoryRelationNameCommentsVision lossFatherWoodrow Juan SrCancer MotherClaudia earhartRelationNameStatusCommentsFatherWoodrow Juan SrDeceased MotherClaudia earhartDeceased Social History Tobacco UseTypesPacks/DayYears UsedDateSmoking Tobacco: NeverPassive Smoke Exposure: NeverSmokeless Tobacco: NeverAlcohol UseStandard Drinks/WeekComments Never0 (1 standard drink = 0.6 oz pure alcohol)B1300 Health LiteracyAnswerDate RecordedHow often do you need to have someone help you when you read instructions, pamphlets, or other written material from your doctor or pharmacy? Pegdirztn03/01/2025Humiliation, Afraid, Rape, and Kick questionnaireAnswerDate RecordedWithin the last year, have you been afraid of your partner or ex-partner?No02/26/2025Within the last year, have you been humiliated or emotionally abused in other ways by your partner or ex-partner?No02/26/2025 Within the last year, have you been kicked, hit, slapped, or otherwise physically hurt by your partner or ex-partner?No02/26/2025Within the last year, have you been raped or forced to have any kind of sexual activity by your part ner or ex-partner?No02/26/2025Social Connection and Isolation PanelAnswerDate RecordedIn a typical week, how many times do you talk on the phone with family, friends, or neighbors?Once a week02/26/2025How often do you get together with friends or relatives?More than three times a week02/26/2025How often do you attend jain or scientologist services?Never02/26/2025Do you belong to any clubs or organizations such as jain groups, unions, fraternal or athletic groups, or school groups?No02/26/2025ttends Club or Organization MeetingsNot on file 02/26/2025re you , , , , never , or living with a partner?Fkdzoqx7102/26/2025UDIT-CAnswerDate RecordedQ1: How often do you have a drink containing alcohol?Never02/26/2025Q2: How many drinks containing alcohol do you have on a typical day when you are drinking?Patient does not drink02/26/2025Q3: How often do you have six or more drinks on one occasion?Never02/26/2025Overall Financial Resource Strain (CARDIA)AnswerDate RecordedHow hard is it for you to pay for the very basics like food, housing, medical care, and heating?Not hard at all02/26/2025PHQ-2AnswerDate Recorded Patient Health Questionnaire-2 Cxafr193FinSt. Catherine Hospital [facility] - Occupational Stress QuestionnaireAnswerDate RecordedDo you feel stress - tense, restless, nervous, or anxious, or unable to sleep at night because your mind is troubled all the time - these days?Not at all02/26/2025Exercise Vital SignAnswerDate RecordedOn average, how many days per week do you engage in moderate to strenuous exercise (like a brisk walk)?3 days02/26/2025On average, how many minutes do you engage in exercise at this level?50 min02/26/2025Hunger Vital SignAnswerDate RecordedWithin the past 12 months, you worried that your food would run out before you got the money to buymore.Never true02/26/2025 Within the past 12 months, the food you bought just didn't last and you didn't have money to get more.Never true02/26/2025PRAPARE - TransportationAnswerDate RecordedIn the past 12 months, has lack of transportation kept you from medical appointments or from getting medications?No02/26/2025In the past 12 months, has lack of transportation kept you from meetings, work, or from getting things needed for daily living?No02/26/2025Housing Stability Vital SignAnswerDate RecordedIn the last 12 months, was there a time when you were not able to pay the mortgage or rent on time?No11/28/2023In the last 12 months, how many places have you lived?In the last 12 months, was there a time when you did not have a steady place to sleep or slept in ashelter (including now)?No 11/28/2023Housing Stability Vital SignAnswerDate RecordedIn the last 12 months, was there a time when you were not able to pay the mortgage or rent on time?No 02/26/2025In the past 12 months, how many times have you moved where you were living?t any time in the past 12 months, were you homeless or living in a care home (including now)?No02/26/2025Sex and Gender InformationValueDate RecordedSex Assigned at BirthNot on fileLegal EeaObwu0011/26/2022 8:32 PM EDT Gender IdentityNot on fileSexual OrientationNot on file Last Filed Vital Signs Vital SignReadingTime TakenCommentsBlood Xlxkghke982/8603/03/2025 10:30 AM EDT Dyewq349103/03/2025 10:30 AM OXKXbuttvvgbky46.3 ??C (97.3 ??F)03/03/2025 10:30 AM EDTRespiratory Oajs267503/03/2025 10:30 AM EDTOxygen Rftnlduric98%03/03/2025 10:30 AM EDTInhaled Oxygen Concentration--Pxwgtj44.2 kg (157 lb)03/03/2025 10:30 AM XMGLpbxkw836.3 cm (5' 11 )03/03/2025 10:30 AM EDTBody Mass Index21.908 10:30 AM EDT Plan of Treatment Health MaintenanceDue DateLast DoneCommentsInfluenza Vaccine (#1)03/29/2025 05/20/2024, 04/22/2023, 04/23/2022, Additional history existsCOVID-19 Vaccine ( season)5002/16/2025, 05/20/2024, 04/22/2023, Additional history existsPneumococcal Vaccine: 65+ QezhjFywglawih96/09/2018, 05/30/2016 Insurance * Guarantor: Herrera Martinezccount TypeRelation to PatientDate of BirthPhone Billing AddressPersonal/XtvibkLifv62/02/1946 [address] [facility] [address] Care Teams Team MemberRelationshipSpecialtyStart DateEnd Date Nathan Hartman MD PCP - GeneralFamily Medicine09/10/23
--- OUTSIDE RECORDS SUMMARY | 2025-07-19 13:23 | XMS_ITS | Clinical Summary ---
Author Organization [facility] Address [address] [place] [address] Phone Care Team Providers Care Yard Engineer Name Role Phone Unavailable Primary Care Provider Unavailabl e Social History Tobacco UseTypesPacks/DayYears UsedDateSmoking Tobacco: Never AssessedSex and Gender InformationValueDate RecordedSex Assigned at BirthNot on fileLegal Sex Male06/23/2022 10:36 AM ESTGender IdentityNot on fileSexual OrientationNot on file Plan of Treatment Not on file
--- OUTSIDE RECORDS SUMMARY | 2025-07-19 13:23 | XMS_ITS | Clinical Summary ---
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 Name Role Phone Nathan Hartman MD Primary Care Provider Allergies No known active allergies Medications MedicationSigDispense QuantityRefillsLast FilledStart DateEnd DateStatus carbidopa-levodopa (Sinemet) 25-100 mg tablet Take 1.5 tablets by mouth 4 times a day.05/09/2021ctive Jardiance 25 mg Take 25 mg by mouth in the morning.5Active gabapentin (Neurontin) 100 mg capsule Take 1 capsule by mouth Twice daily at 6am and 6pm.5Active glipiZIDE XL (Glucotrol XL) 5 mg 24 hr tablet Take 5 mg by mouth twice a day.Active lancets (OneTouch UltraSoft Lancets) misc in the morning.12/15/2018Active meloxicam (Mobic) 7.5 mg tablet Take 7.5 mg by mouth in the morning.03/03/2019Active metFORMIN (Glucophage) 500 mg tablet Take 500 mg by mouth twice a day.Active metoprolol succinate XL (Toprol-XL) 50 mg 24 hr tablet Take 50 mg by mouth in the morning.10/04/2020ctive nitrofurantoin, macrocrystal-monohydrate, (Macrobid) 100 mg capsule TAKE 1 CAPSULE (100 MG) BY MOUTH IN THE MORNING AND BEFORE BEDTIME FOR 7 DAYS 5Active oxyCODONE-acetaminophen (Percocet) 5-325 mg tablet every 4 (four) hours if needed.Active ramipril (Altace) 1.25 mg capsule Take 1.25 mg by mouth in the morning.10/04/2020ctive rasagiline (Azilect) 0.5 mg tablet Take 1 mg by mouth in the morning.Active simvastatin (Zocor) 40 mg tablet Take 40 mg by mouth in the morning.02/17/2019Active Active Problems ProblemNoted DateDiagnosed DateClosed fracture of left olecranon process 05/11/2025 Assessment & Plan (05/12/2025 1:06 PM EDT): ORIF today. Consented. Marked. All questions answered and he wishes to proceed as does his . No associated orders from this encounter found during lookback period of 72 hours. Encounters DateTypeDepartmentCare AkcaIlztjcelaiu66/10/2025 10:15 AM ESTOffice Visit [address] [place] [address] Irving Fair MD Closed fracture of olecranon process of left ulna, initial encounter (Primary Dx)07/07/2025 9:46 AM EST - 07/07/2025 11:59 PM ESTHospital Encounter [facility] [address] [place] [address] [place] [phone] Closed fracture of olecranon process of left ulna, initial encounter Discharge Disposition: Home or Self Care (01)06/01/2025Telephone [address] [place] [address] Blanquita Trinh MA 05/28/2025 10:15 AM EDTOffice Visit [address] [place] [address] Irving Fair MD Closed fracture of olecranon process of left ulna, initial encounter (Primary Dx)05/28/2025 9:37 AM EDT - 05/28/2025 11:59 PM EDTHospital Encounter [facility] [address] [place] [address] [place] [phone] Closed fracture of olecranon process of left ulna, initial encounter Discharge Disposition: Home or Self Care ()05/12/2025 2:23 PM EDTAnesthesia Event [facility] Main Operating Room [address] [place] [phone] Jero Coughlin MD Meehl, Austin, MD 05/12/2025 2:00 PM EDT - 05/12/2025 4:30 PM EDTSurgery [facility] Main Operating Room [address] [place] [phone] Irving Fair MD ORIF, FRACTURE, OLECRANON [[id number] (CPT??)]05/12/2025 1:04 PM EDT - 05/12/2025 11:59 PM EDTHospital Encounter [facility] X-Ray Imaging [address] [place] [phone] Pain Discharge Disposition: Home or Self Care ()05/12/2025 1:02 PM EDT - 05/12/2025 8:55 PM EDTHospital Encounter [facility] Main Operating Room [address] [place] [phone] Irving Fair MD Closed fracture of olecranon process of left ulna with routine healing, subsequent encounter (Primary Dx) Discharge Disposition: Home or Self Care ()05/12/20258375Pfcsmn74/14/2025 1:50 PM EDTOffice Visit [facility] [place] [phone] Etienne Fuentes MD Closed fracture of olecranon process of left ulna, initial encounter (Primary Dx)from Last 3 Months Social History Tobacco UseTypesPacks/DayYears UsedDateSmoking Tobacco: NeverSmokeless Tobacco: Never Tobacco Cessation:Counseling Given: Not Answered Alcohol UseStandard Drinks/WeekCommentsNot Currently0 (1 standard drink = 0.6 oz pure alcohol)PHQ-2AnswerDate RecordedPatient Health Questionnaire-2 Score0 07/07/2025Humiliation, Afraid, Rape, and Kick questionnaireAnswerDate Recorded Within the last year, have you been afraid of your partner or ex-partner?No 07/07/2025Emotionally AbusedNot on file07/07/2025Physically AbusedNot on file 07/07/2025Sexually AbusedNot on file07/07/2025Sex and Gender InformationValue Date RecordedSex Assigned at ShhrfDcvs99/14/2025 1:30 PM EDTLegal SexMale 05/07/2025 9:39 AM EDTGender WmjcmaytQgkz76/14/2025 1:30 PM EDTSexual OrientationChoose not to rimmlmem04/14/2025 1:30 PM EDT Last Filed Vital Signs Vital SignReadingTime TakenCommentsBlood Cjotfhce947/7705/12/2025 8:40 PM EDT Adlue92358/15/2025 8:40 PM LIKQfvjzvkjtyi95 ??C (96.8 ??F)05/12/2025 8:40 PM EDT Respiratory Skbw4089 8:40 PM EDTOxygen Aimmbtixcv25%05/12/2025 8:40 PM EDTInhaled Oxygen Concentration--Srydkg16.9 kg (152 lb)07/07/2025 10:00 AM EST Qulxks916.3 cm (5' 11 )07/07/2025 10:00 AM ESTBody Mass Index21.212 10:00 AM EST Plan of Treatment Health MaintenanceDue DateLast DoneCommentsDiabetes: Hemoglobin A1C1946 Medicare Annual Wellness (AWV)1946Diabetes: Retinopathy Screening 1956Diabetes: Urine Protein Zquadilvl27/02/1966COVID-19 Vaccine ( season)507/, 05/20/2024, 04/22/2023, Additional history existsDepression Yfgsuqpel63/04/2025Fall Risk Meosgcmpm89/10/2026 07/07/2025dult Urifrmf39/, 05/27/2017Pneumococcal Vaccine: 50+ WxipxPbcxamjcd06/09/2018, 05/30/2016Zoster GyqduhzvJicclocld98/25/2019, 02/17/2018Influenza QohtccrCbyasbszn61/26/2025, 05/20/2024, 04/22/2023, Additional history existsHIB VaccinesAged OutNo longer eligible based on patient's age to complete this topicHPV VaccinesAged OutNo longer eligible based on patient's age to complete this topicIPV VaccinesAged OutNo longer eligible based on patient's age to complete this topicMeningococcal B VaccineAged OutNo longer eligible based on patient's age to complete this topicMeningococcal VaccineAged OutNo longer eligible based on patient's age to complete this topic Rotavirus VaccinesAged OutNo longer eligible based on patient's age to complete this topic Medical Devices ImplantedTypeAreaManufacturerDevice IdentifierShelf Expiration DateModel / Serial / LotTissusilvina,Bone,Canc-Chips,30cc - [id number] - [id number] Implanted:Qty: 1 on 05/12/2025 [facility]: [id number]/16/8325THSM16 / [id number] / 2.4mm Volt Compact Straight Plate Implanted:Qty: 1 on 05/12/2025 by [facility]ateLeft: JolblVpalblc05.424.004 / / Plate 2h/Lt/90m,2.7m/3.5m - [id number] Implanted:Qty: 1 on 05/12/2025 by [facility]ateLeft: Tra/CORIN ORTHO02.107.302 / / Screw,Lock,Va,2.7,T8,28mm - [id number] Implanted:Qty: 1 on 05/12/2025 by [facility]: ElbowRONASON/CORIN ORTHO02.211.028 / / Screw,Lock,Va,2.7,T8,22mm - [id number] Implanted:Qty: 2 on 05/12/2025 by Irving [facility] MD [facility]: ElbowJOHNSON/CORIN ORTHO02.211.022 / / Screw,2.7m,T8,55m - [id number] Implanted:Qty: 1 on 05/12/2025 by Irving [facility]: ElbowJOHNSON/CORIN DYPMV990.968 / / Screw,Bone,2.4x22mm - [id number] Implanted:Qty: 1 on 05/12/2025 by Irving Fair MD [facility]: ElbowJohnson & Azrbdpm39.424.122 / / Screw,Bone,2.4x18mm - [id number] Implanted:Qty: 1 on 05/12/2025 by Irving Fair MD [facility]: ElbowJohnson & Ilejyjr19.424.118 / / 2.4mm Volt Cortex Screw Implanted:Qty: 1 on 05/12/2025 by Irving Fair MD [facility]: ZwmqiHieuomr49.424.117 / / Screw,Cortex,Selftap,3.5x26mm - [id number] Implanted:Qty: 1 on 05/12/2025 by Irving Fair MD [facility]: ElbowJOHNSON/CORIN GSHPJ708.826 / / Screw,Cortex,Selftap,3.5x22mm - [id number] Implanted:Qty: 1 on 05/12/2025 by Irving Fair MD [facility]: ElbowJOHNSON/CORIN GBPZX627.822 / / Screw,Lock,Va,2.7,T8,48mm - [id number] Implanted:Qty: 1 on 05/12/2025 by Irving Fair MD [facility]: ElbowJOHNSON/CORIN ORTHO02.211.048 / / Procedures Procedure NamePriorityDate/TimeAssociated DiagnosisCommentsXR ELBOW 3+ VIEWS UQDUFjrxbjo11/10/2025 9:53 AM EST Closed fracture of olecranon process of left ulna, initial encounter XR ELBOW 3+ VIEWS GCLLModxygq02/31/2025 9:50 AM EDT Closed fracture of olecranon process of left ulna, initial encounter HC INJ,ANES AGENT,BRACHIAL PLEXUS,LHNDXVKqanvmr63/15/2025 8:10 PM EDT CHG US GUIDANCE NEEDLE PLACEMENT IMG S&QJzczqdb65/15/2025 8:10 PM EDT [place] INJECTION AA&/STRD BRACHIAL PLEXUS W/IMG BCIWdgogjg60/15/2025 8:10 PM EDT POCT GLUCOSE METER UNSOLICITED LYPTMDOXhfpxph48/15/2025 6:23 PM EDT XR ELBOW 3+ VIEWS QYOKDXKC86/15/2025 6:21 PM EDT [place] LESS THAN 1 HOUR NUQMGWDWTSAAOQGlpbtqg09/15/2025 5:04 PM EDT Pain [place] AN ELECTIVE ENDOTRACHEAL VJGLRIItrgbpj62/15/2025 2:35 PM EDT [place] OPEN TREATMENT ULNAR FRACTURE PROXIMAL END W/FIX05/12/2025 2:23 PM EDT Closed fracture of olecranon process of left ulna, initial encounter Special Needs felix bag, Synthes POCT GLUCOSE METER UNSOLICITED RNZUVVQQrprdbi61/15/2025 1:32 PM EDT MRSA/MSSA DNA EJGBTGuuhwoj24/15/2025 1:22 PM EDT from Last 3 Months Results * XR elbow 3+ views left (07/07/2025 9:53 AM EST) Only the most recent of3 resultswithin the time period is included. Anatomical RegionLateralityModalityUpper Extremities, ElbowLeftComputed RadiographySpecimen (Source)Anatomical Location / LateralityCollection Method / VolumeCollection TimeReceived Time07/08/2025 1:04 PM EST Impressions 07/08/2025 1:08 [...] Electronically signed: Sylvain Dempsey. Authorizing ProviderResult TypeResult StatusChristopAnne [facility] MDIMG XR PROCEDURESFinal Result * [place] INJECTION AA&/STRD BRACHIAL PLEXUS W/IMG GDN, CHG US GUIDANCE NEEDLE PLACEMENT IMG S&I, HC INJ,ANES AGENT,BRACHIAL PLEXUS,SINGLE (05/12/2025 8:10 PM EDT) Forrest Kapadia MD - 05/12/2025 8:10 PM EDT Forrest Mcarthur MD 05/12/2025 10:51 PM Peripheral Block Patient location during procedure: post-op Start time: 05/12/2025 8:10 PM End time: 05/12/2025 8:25 PM Reason for block: at surgeon's request and post-op pain management Staffing Performed: anesthesiologist and resident/STYLE ADVISOR/CAA Anesthesiologist: Forrest Macrthur MD Resident/STYLE ADVISOR: Glenn Win MD Preanesthetic Checklist Completed: patient identified, IV checked, site marked, risks and benefits discussed, surgical consent, monitors and equipment checked, pre-op evaluation and timeout performed Peripheral Block Patient position: sitting Prep: ChloraPrep Patient monitoring: continuous pulse ox and heart rate Block type: supraclavicular brachial plexus Laterality: left Injection technique: single-shot Guidance: ultrasound guided Anesthesia block local: Ropivacaine. Infiltration strength: 0.5 % Dose: 0.5 mL Needle Needle type: short-bevel Needle gauge: 20. Needle length: 4 in Needle localization: ultrasound guidance Medications Administered ropivacaine (PF) (Naropin) 5 mg/mL (0.5 %) injection - injection 12 mL - 05/12/2025 8:20:00 PM Assessment Injection assessment: negative aspiration for heme, local visualized surrounding nerve on ultrasound, no paresthesia on injection and incremental injection Paresthesia pain: none Heart rate change: no Slow fractionated injection: yes Additional Notes PNB per request from pt, pt's family. Ok to proceed per surgery team. R/B/A regarding nerve block discussed with pt pt's spouse, who demonstrate understanding and agree to proceed. # of attempts: 1 Difficulty of identification of appropriate structures on U/S imaging: Low VSS throughout. Ropivacaine given as 0.375% solution, achieved via dilution with PF NS. Authorizing ProviderResult TypeResult StatusRavindera Uberoi MDANESTHESIA ORDERABLESEdited Result - Final * (ABNORMAL) POCT glucose meter (05/12/2025 6:23 PM EDT) Only the most recent of2 resultswithin the time period is included. ComponentValueRef RangeTest MethodAnalysis TimePerformed AtPathologist Signature Glucose ESV276(H)70 - 105 mg/dL05/12/2025 6:34 PM EDTS[facility] ([place]) Comment:mueuvd406Rnmbmhnc (Source)Anatomical Location / LateralityCollection Method / VolumeCollection TimeReceived TimeBloodCapillary blood specimen / Utpclin7805/12/2025 6:23 PM EDT1 6:34 PM EDT Narrative [facility] - 05/12/2025 6:34 PM EDT Waived Testing in the ED is performed under the ED CLIA certificate #[id number]. Authorizing ProviderResult TypeResult StatusChrissusie KEYES BLOOD ORDERABLESFinal ResultPerforming OrganizationAddressCity/State/ZIP CodePhone Number [facility] [address] [place] [address] * [place] LESS THAN 1 HOUR INTRAOPERATIVE (05/12/2025 5:04 PM EDT)Anatomical Region LateralityModalityX-Ray AngiographySpecimen (Source)Anatomical Location / LateralityCollection Method / VolumeCollection TimeReceived Time05/13/2025 9:19 AM EDT Impressions 05/13/2025 9:19 AM EDT Reference air kerma 1.3 mGy. Fluoroscopic guidance provided without radiologist present. Please see details within procedure/operative note. Electronically signed: Mauricio Covarrubias MD. Narrative 05/13/2025 9:19 AM EDT [place] IN OR HISTORY: Fracture. COMPARISON: None. Procedure Note Mauricio Covarrubias MD - 05/13/2025 [place] IN OR HISTORY: Fracture. COMPARISON: None. IMPRESSION: Reference air kerma 1.3 mGy. Fluoroscopic guidance provided withoutradiologist present. Please see details within procedure/operative note. Electronically signed: Mauricio Covarrubias MD. Authorizing ProviderResult TypeResult StatusChristopCavalier County Memorial Hospital FLUOROSCOPY PROCEDURESFinal Result * [place] AN ELECTIVE ENDOTRACHEAL AIRWAY (05/12/2025 2:35 PM EDT) Narrative Jero Coughlin MD - 05/12/2025 2:35 PM EDT Jero Coughlin MD 05/12/2025 6:30 PM Airway Date/Time: 05/12/2025 2:35 PM Reason: elective Airway not difficult General Information and Staff Patient location during procedure: OR Anesthesiologist: Jero Coughlin MD Resident/STYLE ADVISOR/CAA: Larisa Arceo MD Performed: resident/STYLE ADVISOR/CAA Learner assisted: Taisha Dejesus Patient Condition Indications for airway management: anesthesia Sedation level: deep Final Airway Details Preoxygenated: yes Final airway type: endotracheal airway Successful airway: ETT Cuffed: yes Successful intubation technique: video laryngoscopy Adjuncts used in placement: intubating stylet Endotracheal tube insertion site: oral Blade: Hoyos Blade size: #3 ETT size (mm): 7.5 Cormack-Lehane Classification: grade I - full view of glottis Placement verified by: chest auscultation and capnometry Measured from: lips ETT to lips (cm): 22 Number of attempts at approach: 1 Number of other approaches attempted: 0 Authorizing ProviderResult TypeResult StatusAli Madyson MDANESTHESIA ORDERABLES Final Result * (ABNORMAL) MRSA/MSSA DNA Nasal (05/12/2025 1:22 PM EDT)ComponentValueRef Range Test MethodAnalysis TimePerformed AtPathologist SignatureMSSA DNAPositive(A) Uyunyuyg77/16/2025 6:19 AM [facility] ([place])MRSA DNANegative Enqhisyd61/16/2025 6:19 AM [facility] ([facility])Specimen (Source) Anatomical Location / LateralityCollection Method / VolumeCollection Time Received TimeSwabNasal structure / UnknownNon-blood Collection / Unknown 05/12/2025 1:22 PM EDT1 1:42 PM EDT Narrative [facility] - 05/13/2025 6:19 AM EDT Testing methodology is an automated qualitative in vitro diagnostic test for the direct detection and differentiation of Staphylococcus aureus (SA) DNA and methicillin- resistant Staphylococcus aureus (MRSA) DNA from nasal swabs in patients at risk for nasal colonization. The test utilizes real-time polymerase chain reaction (PCR) for the amplification of MRSA/SA DNA and fluorogenic target-specific hybridization probes for the detection of the amplified DNA. A negative result does not preclude nasal colonization. Authorizing ProviderResult TypeResult StatusChluz elena KEYES MICROBIOLOGY - GENERAL ORDERABLESFinal ResultPerforming OrganizationAddress City/State/ZIP CodePhone Number [facility] [address] [place], [place] [phone] from Last [address] [place] [address] Care Teams Team MemberRelationshipSpecialtyStart DateEnd Date Nathan Hartman MD [address] [place] [address] PCP - GeneralFamily Dmebpatm87/15/25
[2025-07-19 13:46] LABS: Hematocrit 52.8 % (42.0-54.0); Hemoglobin 17.8 g/dL (14.0-18.0); Immature Granulocytes Abs Auto 0.01 10^3/uL (0.00-0.03); Immature Granulocytes Pct Auto 0.1 % (0.0-0.5); Lymphocytes Absolute Auto 1.5 10^3/uL (1.2-3.8); Mean Corpuscular HGB Conc 33.7 g/dL (29.9-35.2); Mean Corpuscular Hemoglobin 29.8 pg (25.9-34.0); Mean Corpuscular Volume 88.4 fL (80.0-94.0); Platelet Count 152 10^3/uL (150-450); Red Blood Count 5.97 10^6/uL (4.70-6.10); White Blood Count 7.2 10^3/uL (4.0-11.0)
[2025-07-19 13:58] LABS: Microalbum Creatinine Ratio Ur 81.4 mg/g (0.0-29.9)
[2025-07-19 14:11] LABS: Sodium 142 mmol/L (136-145)
[2025-07-19 14:12] LABS: Alanine Aminotransferase 13 U/L (16-63); Albumin Globulin Ratio 1.1; Albumin Level 4.1 g/dL (3.4-5.0); Alkaline Phosphatase 102 U/L (46-116); Anion Gap 14.5; Aspartate Amino Transferase 27 U/L (15-37); Blood Urea Nitrogen 15.0 mg/dL (7.0-18.0); Calcium 9.7 mg/dL (8.5-10.1); Carbon Dioxide 29.9 mmol/L (21.0-32.0); Chloride 102 mmol/L (98-107); Estimated GFR (African America >60 (>=60 mL/min/1.73m^2); Estimated GFR (Non-African Ame >60 (>=60 mL/min/1.73m^2); Globulin 3.9 g/dL; Glucose 318 mg/dL (74-106); Potassium 4.4 mmol/L (3.5-5.1); Total Protein 8.0 g/dL (6.4-8.2); Triglycerides 164 mg/dL (<=150); VLDL CHOLESTEROL 32.8 mg/dL
[2025-07-19 14:13] LABS: Cholesterol 179 mg/dL (<=200); HDL Cholesterol 37 mg/dL (40-60); Thyroid Stimulating Hormone 1.576 uIU/mL (0.358-3.740)
== END 2025-07-19 13:16 | disposition home or self-care (01) ==
LOC: LAB 13:19
PROVIDERS: PCP Family Medicine; Visit Provider Family Medicine
DX: E11.65 Type 2 diabetes mellitus with hyperglycemia (principal); R53.83 Other fatigue; E78.5 Hyperlipidemia, unspecified; Z79.899 Other long term (current) drug therapy
CPT/HCPCS: 36415; 80053; 80061; 82043; 82570; 83036; 84443; 85025